=== PATIENT | male | born 1955 | race Caucasian/White ===

== ENCOUNTER 2019-12-17 15:32 | Outpatient (REF) | payer MEDICARE, MEDICAID, SELFPAY | END 2019-12-17 15:33 | disposition home or self-care (01) | LOC: HO.HAP 15:32 | PROVIDERS: PCP Internal Medicine; Visit Provider Internal Medicine | DX: Z46.1 Encounter for fitting and adjustment of hearing aid (principal) | CPT/HCPCS: V5266 ==

== ENCOUNTER 2020-02-20 12:27 | Inpatient (IN) | payer MEDICARE, MEDICAID, SELFPAY ==
[2020-02-20] VITALS (9 sets, daily range): BP systolic 111–144; BP diastolic 49–72; PULSE 82–93; RESP 16–24; TEMP 36.8–37.7; O2SAT 95–98; BMI 33.6
--- NOTE | 2020-02-20 13:16 | XR_ITS ---
EXAMINATION: XR KNEE, LEFT CLINICAL INFORMATION: Posterior left knee pain following a fall. COMPARISON: None TECHNIQUE: Four views of the left knee. FINDINGS: No acute fracture or dislocation. Severe tricompartmental joint space narrowing with marginal osteophytes. No significant joint effusion. Prominent atherosclerotic calcifications. XR/XR knee LT 4V IMPRESSION: Severe tricompartmental osteoarthritis. No displaced fracture.
--- NOTE | 2020-02-20 13:16 | ECG_ITS ---
Test Reason : WEAKNESS Blood Pressure : / mmHG Vent. Rate : 087 BPM Atrial Rate : 087 BPM P-R Int : 196 ms QRS Dur : 102 ms QT Int : 400 ms P-R-T Axes : 021 046 053 degrees QTc Int : 481 ms Normal sinus rhythm Nonspecific ST abnormality Abnormal ECG When compared with ECG of 24-FEB-2018 03:20, No significant changes seen Referred By: Sagrario Pratt Electronically Signed By:BANG CA
--- NOTE | 2020-02-20 13:16 | XR_ITS ---
EXAMINATION: XR CHEST CLINICAL INFORMATION: Fall. COMPARISON: Chest radiograph dated 02/24/2018. TECHNIQUE: 2 views of the chest were obtained. FINDINGS: Patchy right-sided airspace opacities, slightly more prominent when compared to the prior examination. No pleural effusion or pneumothorax. Stable cardiomediastinal silhouette. No acute osseous abnormality. XR/XR chest 2V IMPRESSION: Patchy right middle lobe airspace opacities, slightly more prominent when compared to the prior examination. Findings could represent an infectious or inflammatory process.
[2020-02-20 13:58] LABS: Basophils Absolute Auto 0.1 X10*3/uL (0.0-0.2); Basophils Percent Auto 0.7 % (0-2); Eosinophils Absolute Auto 0.5 X10*3/uL (0.0-0.4); Eosinophils Percent Auto 7.3 % (0-4); Hematocrit 23.4 % (42-52); Imm Gran Abs Auto 0.06 X10*3/uL (0.00-0.03); Imm Gran Pct Auto 0.9 % (0.0-0.4); Lymphocytes Absolute Auto 0.8 X10*3/uL (1.2-4.9); Lymphocytes Percent Auto 12.3 % (20-40); MANUAL DIFF FLAG NO; Mean Corpuscular HGB Conc 29.9 g/dl (31.0-36.0); Mean Corpuscular Hemoglobin 27.1 pg (27.0-33.0); Mean Corpuscular Volume 90.7 fL (80-98); Monocytes Absolute Auto 0.8 X10*3/uL (0.1-1.2); Neutrophils Absolute Auto 4.6 X10*3/uL (2.0-8.3); Neutrophils Percent Auto 67.8 % (45-73); Red Blood Count 2.58 X10*6/uL (4.60-5.80); Red Cell Distribution Width 17.4 % (11.0-16.0); White Blood Count 6.8 X10*3/uL (4.8-10.8)
[2020-02-20 14:00] LABS: Platelet Count 82 X10*3/uL (160-400)
[2020-02-20 14:03] LABS: INTERNATIONAL NORM RATIO 1.2 (0.9-1.1); Prothrombin Time 14.6 SEC (10.8-13.0)
--- NOTE | 2020-02-20 14:17 | ED.LOWEXIN ---
HPI - Extremity Injury (Lower) General Chief Complaint: Extremity Injury, Lower Stated Complaint: LEG WEAKNESS [id number],FALL LAST NIGHT Time Seen by Provider: 02/20/20 12:57 Source: patient and EMS Mode of arrival: EMS Limitations: no limitations History of Present Illness HPI Narrative: 64yoM c PMHx of atrial fibrillation only on aspirin, CHF, cardiomyopathy, DM, CKD stage III, blindness of left eye, GERD, abdominal hernia, hypothyroidism, BPH, osteoarthritis and major depression presenting to the ED via EMS currently residing at [facility] in [place] after he was in the shower with 1 of the SANIPRACTIC PHYSICIAN's when he reported to the SANIPRACTIC PHYSICIAN that he could not stand up any longer and his legs gave out and she was able to help lower him down to the ground. He reports he did not hit his head or lose consciousness. He reports he did have a fall approximately 1-2 weeks ago with a head injury but did not lose consciousness. He is concerned of increasing leg weakness and he is concerned about not being able to stand and walk like he used to. Complaining of left knee pain and buttocks pain. Denies any other injuries complaints or concerns at this time. Denies any fevers, chills, headaches, dizziness, changes in vision, jaw pains, paresthesias, chest pain, SOB, abdominal pain, back pain, hip pain, dysuria, diarrhea, constipation or any other symptoms. Related Data Allergies Allergy/AdvReac Type Severity Reaction Status Date / Time colchicine Allergy Unknown diarrhea Verified 02/20/20 12:43 Review of Systems Review of Systems: Constitutional : No Weight loss, No Fever, No Chills, No Night Sweats, + Fatigue, No Malaise ENT/Mouth : No Hearing loss, No Ear Pain, No Nasal Congestion, No Sinus Pain, No Hoarseness, No sore throat, No Rhinorrhea, No Swallowing Difficulty Eyes: No Eye Pain, No Swelling, No Redness, No Foreign Body, No Discharge, No Vision Changes Cardiovascular : No Chest Pain, No SOB, No Dyspnea on Exertion, No Orthopnea, No Edema, No Palpitations Respiratory : No Cough, No Sputum, No Wheezing, No Smoke Exposure, No Dyspnea Gastrointestinal : No Nausea, No Vomiting, No Diarrhea, No Constipation, No abdominal Pain, No Hematochezia, No Melena Genitourinary : no irregular bleeding, No Dysuria, No Urinary Frequency, No Hematuria, No Urinary Incontinence, No Urgency, No Flank Pain, No Urinary Flow Changes, No Hesitancy Musculoskeletal : + joint pain, No Myalgias, No Joint Swelling Skin : No Skin Lesions, No rash Neuro : + Weakness, No Numbness, No Paresthesias, No Loss of Consciousness, No Dizziness, No Headache Psych : No Anxiety/Panic, No Depression, No SI/HI/AH/VH, No Social Issues, Heme/Lymph: No Bruising, No Bleeding,No Lymphadenopathy Endocrine : No Polyuria, No Polydipsia, No Temperature Intolerance Yes all other systems are reviewed and are negative [facility]LY [facility] Past Medical History Attestation statement: The following information was validated with the patient. Medical History Atrial fibrillation Blindness of left eye BPH (benign prostatic hyperplasia) CHF (congestive heart failure) COPD (chronic obstructive pulmonary disease) Diabetes GERD (gastroesophageal reflux disease) Hypothyroid Major depression Osteoarthritis Social History Social History Alcohol intake: never Smoking Status: Former smoker Smoked in Last 30 Days: No Use of substances other than those prescribed or required for medical reasons: No Advance Directives: Yes Advance Directives Information Provided: Yes Advance Directives on File: Yes Advance Directives Date on File: 02/20/20 Physical Exam Vital Signs: Vital Signs: Last Vital Signs Temp 98.7 F 02/20/20 17:01 Pulse 82 02/20/20 17:01 Resp 18 02/20/20 17:01 BP 135/64 02/20/20 17:01 Pulse Ox 96 02/20/20 15:09 Body Mass Index 33.6 vital signs have been reviewed as normal and appeared to be correct. Blood pressure normal. Heart rate normal. Respiration rate normal. Temperature normal. Oxygen saturation normal. Appearance: Alert. Oriented X3. No acute distress. Head: Normal external exam. Normocephalic. Atraumatic. No Mcnally signs noted. No raccoon eyes noted Eyes: Left eye blindness chronic. Right eye c PERRLA and EOMI. Conjunctiva and sclera normal. Eyelids normal. ENT: EAC normal. TM's Normal. Pharynx normal. Uvula midline. Moist mucous membranes. No trismus noted. No drooling noted. No muffled voice noted. Neck: Normal inspection. Neck supple. FROM. No adenopathy. Thyroid Normal. No meningeal signs. No neck mass noted. CVS: Normal heart rate and rhythm. Heart sound normal. No murmurs noted. Pulses normal throughout. Respiratory: No respiratory distress. Painless inspiration. Breath sounds normal. No wheezes/rales/rhonchi noted. Chest nontender. No accessory muscle usage noted or decreased air movement noted. Abdomen: Soft and nontender. Bowel sounds normal in all 4 quadrants. Patient has a huge abdominal hernia. Not incarcerated. No organomegaly noted. No visible injury noted. Back: No CVA tenderness. Full range of motion noted. Skin: Skin warm and dry. Normal skin color. Normal skin turgor. No rashes/lesions/lacerations noted. Extremities: Tender to palpation of left knee. Full range of motion. No laxity noted. No ecchymosis/abrasion/lacerations or obvious deformities noted. No lower extremity edema. No calf tenderness noted. Extremities exhibit normal range of motion. Extremities nontender. Neuro: Oriented X 3. No motor deficit. No sensory deficit. Reflexes normal. Course Course Course Narrative: 13:16pm - 64yoM c PMHx of atrial fibrillation only on aspirin, CHF, cardiomyopathy, DM, CKD stage III, blindness of left eye, GERD, abdominal hernia, hypothyroidism, BPH, osteoarthritis and major depression presenting to the ED via EMS currently residing at [facility] in [place] after he was in the shower c a fall and weakness. Had a prior fall 1 week ago with head injury. Did not have head injury this time. No loss of consciousness. Complaining of left knee pain and buttocks pain. - on exam patient is alert and oriented x3 not in any acute distress. Vital signs are stable and within normal limits. Patient does not have any obvious deformities or injuries. - Concern for electrolyte abnormality - Plan: Labs, CT scan of brain, chest x-ray, imaging of bilateral hips and pelvis, imaging of lumbar spine and left knee, SARs/RSV/flu swab then re-evaluate. Reevaluation(s) Reevaluation #1: - H/H 7.0/23.4 - BUN 19 - glucose 130 - calcium 5.7 - BUN 111 - Total protein 6.4 - albumin 3.3 - All other labs WNL. UA WNL. - therefore at this time I asked the patient and he if he was having any bleeding including dark or tarry stools or bright red blood from the stools and he denied this therefore a stool occult will be performed. Patient is accepting consent for transfusion of blood or blood components he signed the form at this time. Will order 2 packs of red blood cells for blood transfusion. Will also order a L of fluids along with a CT scan of abdomen and pelvis to evaluate for any acute processes, will not be imaging the hips and pelvis or the lumbar spine as this will be included in the CT scan of abdomen pelvis. Will re-evaluate. Plan will be to admit for anemia and generalized weakness. Time: 14:18 Reevaluation #2: - patient positive for stool occult although CT scan of abdomen and pelvis revealed chronic changes no acute processes noted. I spoke to the hospitalist about admitting the patient and Shyann Pal will admit the patient although she ordered me to order only 1 pack of red blood cells due to the patient's history of CHF therefore this was ordered at this time and patient will receive only 1 pack of red blood cells. Patient will be admitted. Patient is negative for RSV/flu/COVID. Time: 17:11 MDM - Extremity Injury (Lower) Medical Records Attestation: I reviewed the patient's medical records. Lab Data Attestation: I reviewed the patient's lab results. Result diagrams: 02/20/20 13:50 02/20/20 13:50 Labs: Lab Results 02/20/20 02/20/20 02/20/20 Range/Units 13:50 13:50 13:50 WBC 6.8 (4.8-10.8) X10*3/uL RBC 2.58 L (4.60-5.80) X10*6/uL Hgb 7.0 L* (14.0-18.0) g/dl Hct 23.4 L (42-52) % MCV 90.7 (80-98) fL MCH 27.1 (27.0-33.0) pg MCHC 29.9 L (31.0-36.0) g/dl RDW 17.4 H (11.0-16.0) % Plt Count 82 L (160-400) X10*3/uL MPV 13.0 H (9.4-12.4) fL Immature Gran % (Auto) 0.9 H (0.0-0.4) % Neut % (Auto) 67.8 (45-73) % Lymph % (Auto) 12.3 L (20-40) % [place] % (Auto) 11.0 (2-11) % Eos % (Auto) 7.3 H (0-4) % Baso % (Auto) 0.7 (0-2) % Lymph # (Auto) 0.8 L (1.2-4.9) X10*3/uL [place] # (Auto) 0.8 (0.1-1.2) X10*3/uL Eos # (Auto) 0.5 H (0.0-0.4) X10*3/uL Baso # (Auto) 0.1 (0.0-0.2) X10*3/uL Abs Immat Gran (auto) 0.06 H (0.00-0.03) X10*3/uL Absolute Neuts (auto) 4.6 (2.0-8.3) X10*3/uL Absolute Nucleated RBC 0.000 (0.0-0.012) X10*3/uL Nucleated RBC % (auto) 0.0 (0.0-0.2) /100WBC Hold Purple Top SEE NOTE PT 14.6 H (10.8-13.0) SEC INR 1.2 H (0.9-1.1) Sodium (135-145) mmol/L Potassium (3.3-5.1) mmol/l Chloride (96-108) mmol/L Carbon Dioxide (22-29) mmol/L Anion Gap (12-20) BUN (9-16) mg/dL Creatinine (0.5-1.4) mg/dL Estim Creat Clear Calc Estimated GFR Random Glucose (60-115) mg/dL Calcium (8.4-10.2) mg/dL Magnesium (1.6-2.6) mg/dL Iron (45-160) mcg/dL TIBC (228-428) mcg/dL % Saturation (15-50) % Unsat Iron Binding ug/dL Ferritin (20-250) ng/mL Total Bilirubin (0.0-1.0) mg/dL Direct Bilirubin (0.0-0.5) mg/dL AST (5-37) U/L ALT (0-40) U/L Alkaline Phosphatase (39-117) U/L Troponin I High Sens (<3.5-35.0) ng/L B-Natriuretic Peptide (<100) pg/mL Total Protein (6.5-8.0) g/dL Albumin (3.5-5.0) g/dL Urine Color Urine Appearance Urine pH (5.0-8.0) Ur Specific [place] (1.005-1.025) Urine Protein (NEG-TRACE) MG/DL Urine Glucose (UA) (NEG) MG/DL Urine Ketones (NEG) MG/DL Urine Blood (NEG) Urine Nitrite (NEG) Ur Leukocyte Esterase (NEG) Stool Occult Blood (NEG) Coronavirus (PCR) (Negative) Influenza Type A (PCR) (Negative) Influenza Type B (PCR) (Negative) RSV RNA Qual (PCR) (Negative) Blood Type Antibody Screen Crossmatch 02/20/20 02/20/20 02/20/20 Range/Units 13:50 13:50 15:31 WBC (4.8-10.8) X10*3/uL RBC (4.60-5.80) X10*6/uL Hgb (14.0-18.0) g/dl Hct (42-52) % MCV (80-98) fL MCH (27.0-33.0) pg MCHC (31.0-36.0) g/dl RDW (11.0-16.0) % Plt Count (160-400) X10*3/uL MPV (9.4-12.4) fL Immature Gran % (Auto) (0.0-0.4) % Neut % (Auto) (45-73) % Lymph % (Auto) (20-40) % [place] % (Auto) (2-11) % Eos % (Auto) (0-4) % Baso % (Auto) (0-2) % Lymph # (Auto) (1.2-4.9) X10*3/uL [place] # (Auto) (0.1-1.2) X10*3/uL Eos # (Auto) (0.0-0.4) X10*3/uL Baso # (Auto) (0.0-0.2) X10*3/uL Abs Immat Gran (auto) (0.00-0.03) X10*3/uL Absolute Neuts (auto) (2.0-8.3) X10*3/uL Absolute Nucleated RBC (0.0-0.012) X10*3/uL Nucleated RBC % (auto) (0.0-0.2) /100WBC Hold Purple Top PT (10.8-13.0) SEC INR (0.9-1.1) Sodium 142 (135-145) mmol/L Potassium 4.0 (3.3-5.1) mmol/l Chloride 105 (96-108) mmol/L Carbon Dioxide 25 (22-29) mmol/L Anion Gap 16 (12-20) BUN 19 H (9-16) mg/dL Creatinine 1.07 (0.5-1.4) mg/dL Estim Creat Clear Calc 87.9 Estimated GFR > 60 Random Glucose 130 H (60-115) mg/dL Calcium 5.7 L* (8.4-10.2) mg/dL Magnesium 1.7 (1.6-2.6) mg/dL Iron 40 L (45-160) mcg/dL TIBC 365 (228-428) mcg/dL % Saturation 11 L (15-50) % Unsat Iron Binding 325 ug/dL Ferritin 23 (20-250) ng/mL Total Bilirubin 0.6 (0.0-1.0) mg/dL Direct Bilirubin 0.3 (0.0-0.5) mg/dL AST 33 (5-37) U/L ALT 17 (0-40) U/L Alkaline Phosphatase 95 (39-117) U/L Troponin I High Sens 4.3 (<3.5-35.0) ng/L B-Natriuretic Peptide 111 H (<100) pg/mL Total Protein 6.4 L (6.5-8.0) g/dL Albumin 3.3 L (3.5-5.0) g/dL Urine Color Urine Appearance Urine pH (5.0-8.0) Ur Specific [place] (1.005-1.025) Urine Protein (NEG-TRACE) MG/DL Urine Glucose (UA) (NEG) MG/DL Urine Ketones (NEG) MG/DL Urine Blood (NEG) Urine Nitrite (NEG) Ur Leukocyte Esterase (NEG) Stool Occult Blood (NEG) Coronavirus (PCR) (Negative) Influenza Type A (PCR) (Negative) Influenza Type B (PCR) (Negative) RSV RNA Qual (PCR) (Negative) Blood Type O Positive Antibody Screen NEGATIVE Crossmatch See Detail 02/20/20 02/20/20 02/20/20 Range/Units 15:32 15:47 15:47 WBC (4.8-10.8) X10*3/uL RBC (4.60-5.80) X10*6/uL Hgb (14.0-18.0) g/dl Hct (42-52) % MCV (80-98) fL MCH (27.0-33.0) pg MCHC (31.0-36.0) g/dl RDW (11.0-16.0) % Plt Count (160-400) X10*3/uL MPV (9.4-12.4) fL Immature Gran % (Auto) (0.0-0.4) % Neut % (Auto) (45-73) % Lymph % (Auto) (20-40) % [place] % (Auto) (2-11) % Eos % (Auto) (0-4) % Baso % (Auto) (0-2) % Lymph # (Auto) (1.2-4.9) X10*3/uL [place] # (Auto) (0.1-1.2) X10*3/uL Eos # (Auto) (0.0-0.4) X10*3/uL Baso # (Auto) (0.0-0.2) X10*3/uL Abs Immat Gran (auto) (0.00-0.03) X10*3/uL Absolute Neuts (auto) (2.0-8.3) X10*3/uL Absolute Nucleated RBC (0.0-0.012) X10*3/uL Nucleated RBC % (auto) (0.0-0.2) /100WBC Hold Purple Top PT (10.8-13.0) SEC INR (0.9-1.1) Sodium (135-145) mmol/L Potassium (3.3-5.1) mmol/l Chloride (96-108) mmol/L Carbon Dioxide (22-29) mmol/L Anion Gap (12-20) BUN (9-16) mg/dL Creatinine (0.5-1.4) mg/dL Estim Creat Clear Calc Estimated GFR Random Glucose (60-115) mg/dL Calcium (8.4-10.2) mg/dL Magnesium (1.6-2.6) mg/dL Iron (45-160) mcg/dL TIBC (228-428) mcg/dL % Saturation (15-50) % Unsat Iron Binding ug/dL Ferritin (20-250) ng/mL Total Bilirubin (0.0-1.0) mg/dL Direct Bilirubin (0.0-0.5) mg/dL AST (5-37) U/L ALT (0-40) U/L Alkaline Phosphatase (39-117) U/L Troponin I High Sens (<3.5-35.0) ng/L B-Natriuretic Peptide (<100) pg/mL Total Protein (6.5-8.0) g/dL Albumin (3.5-5.0) g/dL Urine Color STRAW Urine Appearance CLEAR Urine pH 5.5 (5.0-8.0) Ur Specific [place] 1.020 (1.005-1.025) Urine Protein NEG (NEG-TRACE) MG/DL Urine Glucose (UA) NEG (NEG) MG/DL Urine Ketones NEG (NEG) MG/DL Urine Blood NEG (NEG) Urine Nitrite NEG (NEG) Ur Leukocyte Esterase NEG (NEG) Stool Occult Blood POS (NEG) Coronavirus (PCR) NEGATIVE (Negative) Influenza Type A (PCR) NEGATIVE (Negative) Influenza Type B (PCR) NEGATIVE (Negative) RSV RNA Qual (PCR) NEGATIVE (Negative) Blood Type Antibody Screen Crossmatch Imaging Data Chest x-ray: Attestation: I personally reviewed and interpreted this imaging study as follows: Radiologist's impression: IMPRESSION: Patchy right middle lobe airspace opacities, slightly more prominent when compared to the prior examination. Findings could represent an infectious or inflammatory process. CT scan - head: Attestation: I personally reviewed and interpreted this imaging study as follows: Radiologist's impression: IMPRESSION: No acute intracranial process seen. Age-related cerebral volume loss and chronic small vessel ischemic changes in both cerebral hemispheres Left knee x-ray: Attestation: I personally reviewed and interpreted this imaging study as follows: Radiologist's impression: IMPRESSION: Severe tricompartmental osteoarthritis. No displaced fracture. ECG Data Attestation: I personally reviewed and interpreted this ECG as follows: ECG interpretation date: 02/20/20 ECG interpretation time: 13:29 Interpretation: Normal sinus rhythm and nonspecific ST abnormality normal QRS duration normal QT/QTC interval no acute ischemic changes noted. EKG on 02/24/2019 Critical Care Time Critical Care Time Critical Care Time: Yes Total Critical Care Time: 90 Attestation: I personally attest to this time spent taking care of the patient Discharge Plan Discharge Clinical Impression: Anemia, Fecal occult blood test positive, Generalized weakness, Strain of left knee, Diverticulosis Patient Disposition: Admitted As Inpatient
[2020-02-20 14:26] LABS: B Type Natriuretic Peptide 111 pg/mL (<100)
--- NOTE | 2020-02-20 14:26 | CT_ITS ---
EXAMINATION: CT HEAD WITHOUT CONTRAST CLINICAL INFORMATION: Status post fall x1 week ago. Head injury. COMPARISON: None TECHNIQUE: Contiguous axial imaging was performed from the skull base to vertex without intravenous administration of contrast. This CT examination was performed using dose optimization techniques as appropriate, variously including the following: *Automated exposure control *Adjustment of mA and/or kV according to patient size (this includes techniques or standardized protocols for targeted exams where dose is matched to indication/reason for exam; i.e. extremities or head) *Use of iterative reconstruction technique DLP: 2016 mGy-cm FINDINGS: There is no evidence of acute intracranial hemorrhage or territorial infarction. No abnormal mass effect or midline shift is seen. Flowers to white matter differentiation is well preserved. No extra-axial fluid collections are identified. The lateral ventricles are enlarged with symmetrical. Mild periarticular hypodensity seen in both cerebral hemispheres without mass effect. The osseous structures and soft tissues are normal. The mastoid air cells and visualized portions of the paranasal sinuses are well aerated. 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 Otherwise the bony orbits are unremarkable. CT/CT head/brain wo con IMPRESSION: No acute intracranial process seen. Age-related cerebral volume loss and chronic small vessel ischemic changes in both cerebral hemispheres
--- NOTE | 2020-02-20 14:26 | CT_ITS ---
EXAMINATION: CT ABDOMEN AND PELVIS WITH CONTRAST CLINICAL INFORMATION: Patient with low hemoglobin/hematocrit question GI bleed. COMPARISON: CT of the abdomen and pelvis with contrast dated 07/09/2009. TECHNIQUE: Multidetector volumetric images were obtained from the superior aspect of the liver through the pubic symphysis following administration 85 mL of Omnipaque 350 intravenous contrast. Sagittal and coronal reformatted images were obtained on the technologist's workstation. Oral contrast: No This CT examination was performed using dose optimization techniques as appropriate, variously including the following: *Automated exposure control *Adjustment of mA and/or kV according to patient size (this includes techniques or standardized protocols for targeted exams where dose is matched to indication/reason for exam; i.e. extremities or head) *Use of iterative reconstruction technique DLP: 2016 mGy-cm FINDINGS: LOWER THORAX: Lung bases are clear. Heart is normal in size. No pericardial effusion or thickening. Coronary vascular calcifications. HEPATOBILIARY: Liver is normal in size and attenuation. There is mild nodularity of the hepatic contour suggesting chronic liver disease. No focal hepatic lesions. The gallbladder is present and otherwise unremarkable. No biliary dilatation. SPLEEN: Normal. PANCREAS: Normal. ADRENALS: Normal. KIDNEYS/URETERS: Symmetric nephrograms. Nonobstructive 0.7 cm calculus in the lower pole of the right kidney. Left renal cysts noted. Cyst in the upper pole of the left kidney demonstrates a small thin septation. No solid enhancing lesions. No hydronephrosis bilaterally. BLADDER: Partially decompressed by Palacios catheter. PELVIC ORGANS: Prostate is mildly enlarged. Central prostatic calcifications. Seminal vesicles are normal in caliber. GI TRACT: No dilated or thick walled loops of bowel. The appendix is unremarkable (15:56/106). Sigmoid diverticulosis. No contrast blush is appreciated in the small or large bowel to definitively suggest source of gastrointestinal bleeding. PERITONEUM/RETROPERITONEUM AND MESENTERY: No intraperitoneal free air or fluid. LYMPH NODES: No pathologically enlarged lymph nodes. VESSELS: Moderate aortoiliac atherosclerotic calcifications. BONES AND SOFT TISSUES: No aggressive lytic or blastic osseous lesions. Small fat-containing bilateral inguinal hernias. CT/CT abdomen pelvis w con IMPRESSION: Nonobstructing right nephrolithiasis. Diverticulosis. Mild nodularity of the hepatic contour suggesting chronic liver disease. Normal caliber small and large bowel. No acute bowel pathology appreciated.
[2020-02-20 14:39] LABS: Alanine Aminotransferase 17 U/L (0-40); Albumin Level 3.3 g/dL (3.5-5.0); Alkaline Phosphatase 95 U/L (39-117); Anion Gap 16 (12-20); Aspartate Amino Transferase 33 U/L (5-37); Bilirubin Direct 0.3 mg/dL (0.0-0.5); Bilirubin Total 0.6 mg/dL (0.0-1.0); Blood Urea Nitrogen 19 mg/dL (9-16); Carbon Dioxide 25 mmol/L (22-29); Chloride 105 mmol/L (96-108); Creatinine Clr Calc Pharmacy 87.9; Estimated Glomerular Filt Rate > 60; Glucose Random 130 mg/dL (60-115); Magnesium 1.7 mg/dL (1.6-2.6); Sodium 142 mmol/L (135-145); Total Protein 6.4 g/dL (6.5-8.0)
[2020-02-20 14:52] LABS: Calcium 5.7 mg/dL (8.4-10.2)
--- NOTE | 2020-02-20 15:06 | PC.NURSE ---
pt incontinent of urine, brief removed, cleaned and linens changed. significant masceration to doreen area, dried and sykes cath placed per provider d/t skin integrity issues. provider at bedside for rectal exam as well as consent for blood products. plan for inpt admission.
[2020-02-20] MEDS: iohexoL 350 MG/ML 100 ML INFUS..BTL IV (15:23)
[2020-02-20] MEDS: 0.9 % Sodium Chloride 1,000 ML 999 ML IVCONT (15:44)
[2020-02-20 15:54] LABS: OBS Int Ctl Valid YES; OBS1 POS (NEG)
[2020-02-20 15:55] LABS: Appearance Urine CLEAR; Color Urine STRAW; Glucose Urine UA NEG (NEG); Leukocyte Esterase Urine NEG (NEG); Nitrite Urine NEG (NEG); PH 5.5 (5.0-8.0); Urine Blood NEG (NEG); Urine Ketones NEG (NEG); Urine Protein NEG (NEG-TRACE)
[2020-02-20 16:41] LABS: Troponin-I High Sensitivity 4.3 ng/L (<3.5-35.0)
[2020-02-20 16:49] LABS: Iron 40 mcg/dL (45-160); Percent Iron Saturation 11 % (15-50); Total Iron Binding Capacity 365 mcg/dL (228-428); Unsaturated Iron Binding 325 ug/dL
[2020-02-20 16:54] LABS: Influenza A PCR NEGATIVE (Negative); Influenza B PCR NEGATIVE (Negative); Resp Syncy Virus RNA Qual PCR NEGATIVE (Negative); SARS COV2 PCR INHOUSE NEGATIVE (Negative)
--- NOTE | 2020-02-20 17:05 | P.EN_ITS ---
Event Note Date of Service: 02/20/20 Event Note: Patient seen and examined. Case discussed with ROLANDO Alcaraz. Agree with her history and physical + plan as documented Below. In brief, 64-year-old male from group home facility who presented to the hospital after a mechanical fall. Lab work in the emergency room was significant for normocytic anemia and thrombocytopenia which is chronic. No mee bleeding, however occult blood was positive. Will be admitted for blood transfusion as well as further workup for his profound anemia. Will start empiric IV PPI and consult Gastroenterology as well. Allow him clear liquids this evening, NPO after midnight. Remainder per H&P
--- NOTE | 2020-02-20 17:05 | PC.NURSE ---
Addendum entered by Buster Parekh 02/20/20 17:08: pt seen by hospitalist, pending admission. Original Note: blood products started, no evidence of allergic or adverse reaction, vss. rbcs infusing.
[2020-02-20 17:09] LABS: Ferritin 23 ng/mL (20-250)
--- NOTE | 2020-02-20 17:12 | P.HPHOSP_ITS ---
History of Present Illness Date of Service: 02/20/20 <ROLANDO Hernandez - Last Filed: 02/20/20 17:21> Chief Complaint: Fall <ROLANDO Hernandez - Last Filed: 02/20/20 17:21> This is a 64-year-old male who was brought from [facility] due to a fall. Patient reports having mechanical fall. He denies any loss of consciousness, he denies hitting his head. Brain CT was negative. Lab work do ne which revealed anemia which was new compared to his baseline. H/H was 7/23.4 and he was also noted to have heme-positive stools. He denies any mee bleeding. He reports using ibuprofen daily due to gout. He also reportedly takes aspirin daily. He denies previous history of GI bleeding. He underwent a CT scan of the abdomen showed with no other acute bowel pathology. <ROLANDO Hernandez - Last Filed: 02/20/20 17:21> Review of Systems Review of Systems: Yes all other systems are reviewed and are negative <ROLANDO Hernandez - Last Filed: 02/20/20 17:21> Constitutional: Constitutional: Denies chills and Denies fever(s) <ROLANDO Hernandez - Last Filed: 02/20/20 17:21> Cardiovascular: Cardiovascular: Denies chest pain <ROLANDO Hernandez - Last Filed: 02/20/20 17:21> Respiratory: Respiratory: Denies cough <ROLANDO Hernandez - Last Filed: 02/20/20 17:21> Gastrointestinal: Gastrointestinal: Denies abdominal pain <ROLANDO Hernandez - Last Filed: 02/20/20 17:21> [facility] Medical History: Medical History Atrial fibrillation Blindness of left eye BPH (benign prostatic hyperplasia) CHF (congestive heart failure) COPD (chronic obstructive pulmonary disease) Diabetes GERD (gastroesophageal reflux disease) Hypothyroid Major depression Osteoarthritis 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 <ROLANDO Hernandez - Last Filed: 02/20/20 17:21> Family History: Family History Maternal Grandmother Diabetes Mother Diabetes <ROLANDO Hernandez - Last Filed: 02/20/20 17:21> Family history: reviewed and not pertinent <ROLANDO Hernandez - Last Filed: 02/20/20 17:21> Social History: Social History Household Members: Other Housing: [facility] Alcohol intake: former Smoking Status: Former smoker Advance Directives Date on File: 02/20/20 service: No Current occupational status: retired <ROLANDO Hernandez - Last Filed: 02/20/20 17:21> Meds Allergies/Adverse reactions: Allergies Allergy/AdvReac Type Severity Reaction Status Date / Time colchicine Allergy Unknown diarrhea Verified 02/20/20 12:43 <ROLANDO Hernandez - Last Filed: 02/20/20 17:21> Home medications: Home Medications Medication Instructions Recorded Confirmed Type atorvastatin 1 tab PO DAILY 02/21/20 02/21/20 History carvedilol 1 tab PO BID 02/21/20 02/21/20 History citalopram 1 tab PO DAILY 02/21/20 02/21/20 History citalopram 1 tab PO DAILY 02/21/20 02/21/20 History furosemide 1 tab PO DAILY 02/21/20 02/21/20 History hydroxyzine HCl 25 mg PO DAILY 02/21/20 02/21/20 History latanoprost 1 drp OPHTHALMIC (EYE) BEDTIME 02/21/20 02/21/20 History magnesium oxide 400 mg PO BID 02/21/20 02/21/20 History metformin 1 tab PO BID 02/21/20 02/21/20 History pentoxifylline 1 tab PO BID 02/21/20 02/21/20 History <ROLANDO Hernandez - Last Filed: 02/20/20 17:21> Physical Exam Vital Signs and Narrative: Vital Signs: Last Vital Signs Temp 98.7 F 02/20/20 17:01 Pulse 82 02/20/20 17:01 Resp 18 02/20/20 17:01 BP 135/64 02/20/20 17:01 Pulse Ox 96 02/20/20 15:09 Body Mass Index 33.6 <ROLANDO Hernandez Last Filed: 02/20/20 17:21> Const: General: no acute distress, alert and awake <ROLANDO Hernandez - Last Filed: 02/20/20 17:21> Nutritional Appearance: well nourished <ROLANDO Hernandez - Last Filed: 02/20/20 17:21> HENMT: Head: Yes normocephalic and Yes atraumatic <ROLANDO Hernandez - Last Filed: 02/20/20 17:21> Eyes: Sclerae: sclerae normal <ROLANDO Hernandez - Last Filed: 02/20/20 17:21> Chest: Chest palpation & inspection: normal inspection of the chest <ROLANDO Hernandez - Last Filed: 02/20/20 17:21> Resp: Effort & Inspection: normal respiratory effort and no respiratory distress <ROLANDO Hernandez - Last Filed: 02/20/20 17:21> GI: Other: ventral hernia <ROLANDO Hernandez - Last Filed: 02/20/20 17:21> Palpation (GI): Soft to palpation and nontender <ROLANDO Hernandez - Last Filed: 02/20/20 17:21> Skin: General skin exam: no rashes or lesions noted <ROLANDO Hernandez - Last Filed: 02/20/20 17:21> Neuro: Cranial nerves: Yes CN's II-XII intact bilaterally and Yes Bilaterally intact EOM present <ROLANDO Hernandez - Last Filed: 02/20/20 17:21> Extrem: General: Yes normal to inspection <ROLANDO Hernandez - Last Filed: 02/20/20 17:21> Results Labs CBC and Chem 7: : 02/25/20 05:45 02/23/20 05:46 <ROLANDO Hernandez - Last Filed: 02/20/20 17:21> Labs: Laboratory Results - last 24 hr 02/20/20 02/20/20 02/20/20 13:50 13:50 13:50 MCV 90.7 MCH 27.1 MCHC 29.9 L RDW 17.4 H Plt Count 82 L MPV 13.0 H Immature Gran % (Auto) 0.9 H Neut % (Auto) 67.8 Lymph % (Auto) 12.3 L Knott % (Auto) 11.0 Eos % (Auto) 7.3 H Baso % (Auto) 0.7 Lymph # (Auto) 0.8 L K[place] # (Auto) 0.8 Eos # (Auto) 0.5 H Baso # (Auto) 0.1 Abs Immat Gran (auto) 0.06 H Absolute Neuts (auto) 4.6 Absolute Nucleated RBC 0.000 Nucleated RBC % (auto) 0.0 Hold Purple Top SEE NOTE PT 14.6 H INR 1.2 H Anion Gap Estim Creat Clear Calc Estimated GFR Random Glucose Calcium Magnesium Iron TIBC % Saturation Unsat Iron Binding Ferritin Total Bilirubin Direct Bilirubin AST ALT Alkaline Phosphatase Troponin I High Sens B-Natriuretic Peptide Total Protein Albumin Urine Color Urine Appearance Urine pH Ur Specific [place] Urine Protein Urine Glucose (UA) Urine Ketones Urine Blood Urine Nitrite Ur Leukocyte Esterase Stool Occult Blood Coronavirus (PCR) Influenza Type A (PCR) Influenza Type B (PCR) RSV RNA Qual (PCR) Blood Type Antibody Screen Crossmatch 02/20/20 02/20/20 02/20/20 13:50 13:50 15:31 MCV MCH MCHC RDW Plt Count MPV Immature Gran % (Auto) Neut % (Auto) Lymph % (Auto) Knott % (Auto) Eos % (Auto) Baso % (Auto) Lymph # (Auto) Knott # (Auto) Eos # (Auto) Baso # (Auto) Abs Immat Gran (auto) Absolute Neuts (auto) Absolute Nucleated RBC Nucleated RBC % (auto) Hold Purple Top PT INR Anion Gap 16 Estim Creat Clear Calc 87.9 Estimated GFR > 60 Random Glucose 130 H Calcium 5.7 L* Magnesium 1.7 Iron 40 L TIBC 365 % Saturation 11 L Unsat Iron Binding 325 Ferritin 23 Total Bilirubin 0.6 Direct Bilirubin 0.3 AST 33 ALT 17 Alkaline Phosphatase 95 Troponin I High Sens 4.3 B-Natriuretic Peptide 111 H Total Protein 6.4 L Albumin 3.3 L Urine Color Urine Appearance Urine pH Ur Specific [place] Urine Protein Urine Glucose (UA) Urine Ketones Urine Blood Urine Nitrite Ur Leukocyte Esterase Stool Occult Blood Coronavirus (PCR) Influenza Type A (PCR) Influenza Type B (PCR) RSV RNA Qual (PCR) Blood Type O Positive Antibody Screen NEGATIVE Crossmatch See Detail 02/20/20 02/20/20 02/20/20 15:32 15:47 15:47 MCV MCH MCHC RDW Plt Count MPV Immature Gran % (Auto) Neut % (Auto) Lymph % (Auto) Knott % (Auto) Eos % (Auto) Baso % (Auto) Lymph # (Auto) Knott # (Auto) Eos # (Auto) Baso # (Auto) Abs Immat Gran (auto) Absolute Neuts (auto) Absolute Nucleated RBC Nucleated RBC % (auto) Hold Purple Top PT INR Anion Gap Estim Creat Clear Calc Estimated GFR Random Glucose Calcium Magnesium Iron TIBC % Saturation Unsat Iron Binding Ferritin Total Bilirubin Direct Bilirubin AST ALT Alkaline Phosphatase Troponin I High Sens B-Natriuretic Peptide Total Protein Albumin Urine Color STRAW Urine Appearance CLEAR Urine pH 5.5 Ur Specific [place] 1.020 Urine Protein NEG Urine Glucose (UA) NEG Urine Ketones NEG Urine Blood NEG Urine Nitrite NEG Ur Leukocyte Esterase NEG Stool Occult Blood POS Coronavirus (PCR) NEGATIVE Influenza Type A (PCR) NEGATIVE Influenza Type B (PCR) NEGATIVE RSV RNA Qual (PCR) NEGATIVE Blood Type Antibody Screen Crossmatch <ROLANDO Hernandez - Last Filed: 02/20/20 17:21> Imaging Radiologist's Impressions: Impressions Chest X-Ray 02/20/20 13:16 IMPRESSION: Patchy right middle lobe airspace opacities, slightly more prominent when compared to the prior examination. Findings could represent an infectious or inflammatory process. Knee X-Ray 02/20/20 13:16 IMPRESSION: Severe tricompartmental osteoarthritis. No displaced fracture. Abdomen/Pelvis CT 02/20/20 14:26 IMPRESSION: Nonobstructing right nephrolithiasis. Diverticulosis. Mild nodularity of the hepatic contour suggesting chronic liver disease. Normal caliber small and large bowel. No acute bowel pathology appreciated. Head CT 02/20/20 14:26 IMPRESSION: No acute intracranial process seen. Age-related cerebral volume loss and chronic small vessel ischemic changes in both cerebral hemispheres <ROLANDO Hernandez - Last Filed: 02/20/20 17:21> Assessment and Plan (1) Anemia: Status: Acute <ROLANDO Hernandez - Last Filed: 02/20/20 17:21> This is a 64-year-old male with history of her cardiomyopathy, CKD, diabetes, ITP who presents to the emergency department with fall found to have anemia Acute blood loss anemia/ GIB Start clear liquid diet. NPO at midnight IV PPI Follow CBC 1 unit of blood ordered in ED and transfusion initiated GI consult Hold anticoagulation, anti-platelet agents Thrombocytopenia secondary to ITP Chronic Follow cbc Diabetes Gout DVT prophylaxis-mechanical devices Code status-most form in chart indicates wishes to be DNR/DNI This case was discussed with Dr. Bucio <ROLANDO Hernandez - Last Filed: 02/20/20 17:21>
[2020-02-20] MEDS: Pantoprazole Sodium 40 MG/10 ML VIAL IVPUSH (17:44)
--- NOTE | 2020-02-20 19:11 | PC.NURSE ---
Pt report taken from suzanne saenz at this time. pt on equipment monitor phototypesetting nsr 84 bpm. pt vitals wnl. sykes in place and draining without issue. pt neuro intact, nad noted at this time. pending report to floor.
--- NOTE | 2020-02-20 20:16 | PC.NURSE ---
floor states room is not cleaned. pt given sandwich per request. no apparent distress noted
[2020-02-20 21:03] LABS: Glucose, Whole Blood 163 mg/dL (60-115)
--- NOTE | 2020-02-20 22:02 | PC.NURSE ---
report given at this time. pt can go upstairs at 10:22
[2020-02-21 01:11] LABS: Hemoglobin 7.9 g/dl (14.0-18.0); Mean Corpuscular HGB Conc 30.4 g/dl (31.0-36.0); Mean Corpuscular Hemoglobin 27.5 pg (27.0-33.0); Mean Corpuscular Volume 90.6 fL (80-98); Mean Platelet Volume 12.7 fL (9.4-12.4); Red Blood Count 2.87 X10*6/uL (4.60-5.80); Red Cell Distribution Width 17.1 % (11.0-16.0); White Blood Count 7.2 X10*3/uL (4.8-10.8)
[2020-02-21 01:17] LABS: Platelet Count 68 X10*3/uL (160-400)
[2020-02-21 01:42] LABS: Glucose, Whole Blood 165 mg/dL (60-115)
[2020-02-21] MEDS: 0.9 % Sodium Chloride Flush 3 ML SYRINGE IVFLUSH ×3 (01:54→15:17)
[2020-02-21 03:28] VITALS: BP 131/58; PULSE 93; RESP 16; TEMP 36.6; O2SAT 97
[2020-02-21] MEDS: Pantoprazole Sodium 40 MG/10 ML VIAL IVPUSH ×2 (05:22→18:05)
[2020-02-21 07:15] LABS: Basophils Percent Auto 0.3 % (0-2); Eosinophils Absolute Auto 0.3 X10*3/uL (0.0-0.4); Hemoglobin 8.3 g/dl (14.0-18.0); Lymphocytes Absolute Auto 0.8 X10*3/uL (1.2-4.9); MANUAL DIFF FLAG SCAN; SCAN SMEAR FLAG 1
[2020-02-21 07:16] LABS: Eosinophils Percent Auto 3.1 % (0-4); Hematocrit 27.4 % (42-52); Imm Gran Abs Auto 0.08 X10*3/uL (0.00-0.03); Lymphocytes Percent Auto 9.4 % (20-40); Mean Corpuscular HGB Conc 30.3 g/dl (31.0-36.0); Mean Corpuscular Hemoglobin 27.3 pg (27.0-33.0); Mean Corpuscular Volume 90.1 fL (80-98); Mean Platelet Volume 13.8 fL (9.4-12.4); Monocytes Absolute Auto 0.8 X10*3/uL (0.1-1.2); Monocytes Percent Auto 10.4 % (2-11); Neutrophils Absolute Auto 6.1 X10*3/uL (2.0-8.3); Neutrophils Percent Auto 75.8 % (45-73); Red Blood Count 3.04 X10*6/uL (4.60-5.80); Red Cell Distribution Width 17.5 % (11.0-16.0)
[2020-02-21 07:22] LABS: Glucose, Whole Blood 181 mg/dL (60-115)
[2020-02-21 07:35] LABS: Anion Gap 15 (12-20); Blood Urea Nitrogen 18 mg/dL (9-16); Carbon Dioxide 25 mmol/L (22-29); Chloride 105 mmol/L (96-108); Estimated Glomerular Filt Rate > 60; Glucose Random 186 mg/dL (60-115); Potassium 4.5 mmol/l (3.3-5.1); Sodium 140 mmol/L (135-145)
[2020-02-21 07:43] VITALS: BP 117/59; PULSE 82; RESP 18; TEMP 36.6; O2SAT 98
[2020-02-21 07:47] LABS: PLT ABN DIST 1; Platelet Count 72 X10*3/uL (160-400)
[2020-02-21 07:48] LABS: SLIDE REVIEW VERIFIED
[2020-02-21 07:58] LABS: Calcium 5.9 mg/dL (8.4-10.2)
[2020-02-21] MEDS: Insulin Lispro 100 UNIT/ML 3 ML VIAL SUBCUT ×4 (08:02→22:06)
--- NOTE | 2020-02-21 10:17 | HO.PM.IMPN ---
Subjective Subjective Date of Service: 02/21/20 Interval History: seen and examined this AM denies any bleeding denies pain would like solid food ROS General - no fevers or chills Cardiovascular - no chest pain Respiratory - no shortness of breath or cough Abdominal- no abdominal pain, nausea, vomiting, diarrhea Physical Exam Vital Signs: Vital Signs: Last Vital Signs Temp 97.8 F 02/21/20 07:43 Pulse 82 02/21/20 07:43 Resp 18 02/21/20 07:43 BP 117/59 L 02/21/20 07:43 Pulse Ox 98 02/21/20 07:43 Body Mass Index 33.6 Const: Other: General - no acute distress, appears comfortable Cardiovascular - regular rate and rhythm, S1-S2 Lungs - normal respiratory effort, clear to auscultation bilaterally, no wheezing Abdomen - soft, nontender, no rebound or guarding Extremities - no edema bilaterally Neuro - awake and alert, no focal deficits Objective Data Current Medications Generic Name Dose Route Start Last Admin Trade Name Freq PRN Reason Stop Dose Admin Acetaminophen 650 mg 02/20/20 18:36 Acetaminophen 325 Mg Tablet PO Q6H PRN Pain, Mild (Pain Scale 1-3) Atorvastatin Calcium 10 mg 02/22/20 09:00 Atorvastatin Calcium 10 Mg Tablet PO DAILY [facility] Calcium Carbonate 500 mg 02/21/20 15:00 Calcium Carbonate 500 Mg Tablet PO TID [facility] Docusate Sodium 100 mg 02/20/20 17:09 Docusate Sodium 100 Mg Capsule PO DAILY PRN Constipation Hydroxyzine HCl 25 mg 02/22/20 09:00 Hydroxyzine Hcl 25 Mg Tablet PO DAILY [facility] Calcium Gluconate 2 gm in 100 mls @ 50 mls/hr 02/21/20 10:14 Calcium Gluconate IV 02/21/20 12:13 ONCE ONE Insulin Human Lispro 0 unit 02/20/20 21:00 02/21/20 08:02 Insulin Lispro 100 Unit/Ml 3 Ml Vial SUBCUT 2 unit QIDACHS [facility] Administration Protocol Latanoprost 1 drop 02/21/20 21:00 Latanoprost 0.005 % Ophth Kathy 2.5 Ml Drops EYE-BOTH BEDTIME XI Ondansetron HCl 4 mg 02/20/20 17:09 Ondansetron Hcl 4 Mg/2 Ml Vial IVPUSH Q8H PRN Nausea and Vomiting Pantoprazole Sodium 40 mg 02/20/20 17:10 02/21/20 05:22 Pantoprazole Sodium 40 Mg/10 Ml Vial IVPUSH 40 mg BID@0630,4360 [facility] Administration Sodium Chloride 3 ml 02/21/20 00:00 02/21/20 08:02 0.9 % Sodium Chloride Flush 3 Ml Syringe IVFLUSH 3 ml QSHIFT [facility] Administration Labs CBC & Chem 7: 02/21/20 06:00 02/21/20 06:00 Assessment and Plan (1) Anemia: Status: Acute (2) Fecal occult blood test positive: Status: Acute Assessment and Plan: This is a 64 yo M who presented to the hospital with a mechanical fall. He was noted to be anemia (significant change since the last blood counts) with FOBT without mee bleeding. Admitted for further work up. 1. Acute vs Acute on Chronic blood loss anemia, MENDY risks factors for PUD include NSAID use for gout IV PPI for now s/p 1 unit PRBC, h/h stable post transfusion GI consult clears for now PO Iron 2. HypoCa asymptomatic corrected 6.5 acute on chronic await labs from SNF to determine work up po CaCO3 and IV x 1 3. DM POC QIDAC ISS hold oral 4. Thrombocytopenia chronic due to ITP 5. Gout will need to avoid nsaids DNR/DNI per MOLST DVT pptx, mechanical due to acute blood loss anemia
--- NOTE | 2020-02-21 10:23 | P.CNGI_ITS ---
History of Present Illness Data of Consult Service Date: 02/21/20 Requesting physician: Shyann Pal Primary Care Provider: Simona Fregoso MD HPI Reason for consult: GI bleed: Anemia, Heme + stool 64 yo male whom I was asked to see due to new significant anemia and Heme +stool. Patient was sent from [facility] to the ER after a fall. He was noted to have low H&H: 7/23.4. Patient was not aware of any bleeding. He has symptomatic gout (most affected is his L knee) for which he takes Ibuprofen prn. (He says he does not use daily???). He also is on ASA-81 mg daily. He has been a resident @ the facility for about 10 years. He admits that his appetite is off. He is on meds for heartburn/GERD. He did have EGD in the past but does not recall any specifics. He had a colonoscopy @ ?[facility]--about 6 years ago--says that was negative. Diabetic since ?1979? Hx Cardiomyopathy--ECHO here 2015--EF was ok. Mild LVH.There was some valvular changes--most significant was mild AR. His [employer] was Dr. Anders--has not been seen by Cardiology since Dr. Rouse retired. Hx of Atrial fibrillation. In ER the EKG was NSR. COPD--he used to smoke but was @ assisted living when campus went smoke free and he stopped. He says he was told he had COPD-no clear hx of asthma. Additional Diagnoses on admission chart: :-HYPOPARATHYROIDISM, OBESITY, CKD3. Review of Systems Constitutional: Constitutional: Reports fatigue, Reports frequent falls and Reports poor appetite ENT: Denies dysphagia Cardiovascular: Cardiovascular: Denies chest pain, Denies irregular heart rhythm and Denies palpitations Respiratory: Comments: Known COPD Gastrointestinal: Gastrointestinal: Denies abdominal pain, Denies dysphagia and Denies hematemesis Comments: Heme + stool Neurologic: Reports frequent falls Endocrine: Endocrine: Reports fatigue and Denies palpitations [facility] Past Medical History Medical History (Updated 02/21/20 @ 17:09 by Sheela Naik MD) Atrial fibrillation Blindness of left eye BPH (benign prostatic hyperplasia) CHF (congestive heart failure) COPD (chronic obstructive pulmonary disease) Diabetes GERD (gastroesophageal reflux disease) Hypothyroid Major depression Osteoarthritis 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 Family History Family History (Updated 02/21/20 @ 16:58 by Sheela Naik MD) Maternal Grandmother Diabetes Mother Diabetes Social History Social History (Updated 02/21/20 @ 16:46 by Sheela Naik MD) Household Members: Other Housing: [facility] Alcohol intake: former Smoking Status: Former smoker Smoked in Last 30 Days: No Use of substances other than those prescribed or required for medical reasons: No Currently Displaying Signs/Symptoms of Drug Intoxication Withdrawal: No Have you been hit, kicked, punched, or otherwise hurt by someone within the past year? If so, by whom?: No Do you feel safe in your current relationship?: No Current Relationship Is there a partner from a previous relationship who is making you feel unsafe now?: No Are you made to feel afraid or neglected: No Advance Directives: Yes Advance Directives Information Provided: Yes Advance Directives on File: Yes Advance Directives Date on File: 02/20/20 Do you have thoughts of harming others: None Do you have a plan to hurt others: No Plan Recently lost weight without trying: No service: No Current occupational status: retired [employer] Allergies Allergy/AdvReac Type Severity Reaction Status Date / Time colchicine Allergy Unknown diarrhea Verified 02/20/20 12:43 Home Medications Medication Instructions Recorded Confirmed Type Aspirin For Children 81 mg PO DAILY 02/21/20 02/21/20 History atorvastatin 1 tab PO DAILY 02/21/20 02/21/20 History carvedilol 1 tab PO BID 02/21/20 02/21/20 History citalopram 1 tab PO DAILY 02/21/20 02/21/20 History citalopram 1 tab PO DAILY 02/21/20 02/21/20 History furosemide 1 tab PO DAILY 02/21/20 02/21/20 History hydroxyzine HCl 25 mg PO DAILY 02/21/20 02/21/20 History insulin detemir U-100 [Levemir 100 unit SUBCUT BID 02/21/20 02/21/20 History U-100 Insulin] latanoprost 1 drp OPHTHALMIC (EYE) BEDTIME 02/21/20 02/21/20 History lisinopril 1 tab PO DAILY 02/21/20 02/21/20 History magnesium oxide 400 mg PO BID 02/21/20 02/21/20 History metformin 1 tab PO BID 02/21/20 02/21/20 History pentoxifylline 1 tab PO BID 02/21/20 02/21/20 History Physical Exam Vital Signs: Vital Signs: Last Vital Signs Temp 97.8 F 02/21/20 07:43 Pulse 82 02/21/20 07:43 Resp 18 02/21/20 07:43 BP 117/59 L 02/21/20 07:43 Pulse Ox 98 02/21/20 07:43 Body Mass Index 33.6 Const: General: comfortable, no acute distress and alert Nutritional Appearance: obese Resp: Effort & Inspection: Actively coughing and prolonged expiratory phase Auscultation: rhonchi Cardio: Rate: regular rate GI: Inspection: Yes obesity Auscultation: normal bowel sounds Rectal Exam - Male: Yes deferred Extrem: General: Yes edema (1-2+, skin shiny with some changes seen with CVS) Results Labs CBC & Chem 7: 02/22/20 08:03 02/22/20 08:03 Labs: Short CBC 02/20/20 02/21/20 02/21/20 Range/Units 13:50 00:58 06:00 WBC 6.8 7.2 8.0 (4.8-10.8) X10*3/uL Hgb 7.0 L* 7.9 L 8.3 L (14.0-18.0) g/dl Hct 23.4 L 26.0 L 27.4 L (42-52) % Plt Count 82 L 68 L 72 L (160-400) X10*3/uL FERRITIN-23-Platelet Count in 2019 was 50,000. SEE PCI BMP 02/20/20 02/21/20 13:50 06:00 Sodium 142 140 Potassium 4.0 4.5 Chloride 105 105 Carbon Dioxide 25 25 BUN 19 H 18 H Creatinine 1.07 0.99 Calcium 5.7 L* 5.9 L*HX OF HYPOPARATHYROIDISM--USUAL VALUE AROUND 7.1 Liver Function 02/20/20 Range/Units 13:50 Total Bilirubin 0.6 (0.0-1.0) mg/dL Direct Bilirubin 0.3 (0.0-0.5) mg/dL AST 33 (5-37) U/L ALT 17 (0-40) U/L Alkaline Phosphatase 95 (39-117) U/L Albumin 3.3 L--THIS IS NEW (3.5-5.0) g/dL Urine 02/20/20 Range/Units 15:47 Urine Color STRAW Urine Appearance CLEAR Urine pH 5.5 (5.0-8.0) Ur Specific [place] 1.020 (1.005-1.025) Urine Protein NEG (NEG-TRACE) MG/DL Urine Glucose (UA) NEG (NEG) MG/DL Imaging CT scan - abdomen: Radiologist's impression: [address] [address] [address] Scan Report Signed Patient: Darren Deleon RMR#: [id number] : 4Acct:[id number] Age/Sex: 64 / MADM Date: 02/20/20 Loc: HO.ED Attending Dr: Ordering Physician: KEERTHI BULLARD Date of Service: 02/20/20 Procedure(s): CT abdomen pelvis w con Accession Number(s): [id number] cc: KEERTHI BULLARD~ EXAMINATION: CT ABDOMEN AND PELVIS WITH CONTRAST CLINICAL INFORMATION: Patient with low hemoglobin/hematocrit question GI bleed. COMPARISON: CT of the abdomen and pelvis with contrast dated 07/09/2009. TECHNIQUE: Multidetector volumetric images were obtained from the superior aspect of the liver through the pubic symphysis following administration 85 mL of Omnipaque 350 intravenous contrast. Sagittal and coronal reformatted images were obtained on the technologist's workstation. Oral contrast: No This CT examination was performed using dose optimization techniques as appropriate, variously including the following: *Automated exposure control *Adjustment of mA and/or kV according to patient size (this includes techniques or standardized protocols for targeted exams where dose is matched to indication/reason for exam; i.e. extremities or head) *Use of iterative reconstruction technique DLP: 2016 mGy-cm FINDINGS: LOWER THORAX: Lung bases are clear. Heart is normal in size. No pericardial effusion or thickening. Coronary vascular calcifications. HEPATOBILIARY: Liver is normal in size and attenuation. There is mild nodularity of the hepatic contour suggesting chronic liver disease. No focal hepatic lesions. The gallbladder is present and otherwise unremarkable. No biliary dilatation. SPLEEN: Normal. PANCREAS: Normal. ADRENALS: Normal. KIDNEYS/URETERS: Symmetric nephrograms. Nonobstructive 0.7 cm calculus in the lower pole of the right kidney. Left renal cysts noted. Cyst in the upper pole of the left kidney demonstrates a small thin septation. No solid enhancing lesions. No hydronephrosis bilaterally. BLADDER: Partially decompressed by Palacios catheter. PELVIC ORGANS: Prostate is mildly enlarged. Central prostatic calcifications. Seminal vesicles are normal in caliber. GI TRACT: No dilated or thick walled loops of bowel. The appendix is unremarkable (15:56/106). Sigmoid diverticulosis. No contrast blush is appreciated in the small or large bowel to definitively suggest source of gastrointestinal bleeding. PERITONEUM/RETROPERITONEUM AND MESENTERY: No intraperitoneal free air or fluid. LYMPH NODES: No pathologically enlarged lymph nodes. VESSELS: Moderate aortoiliac atherosclerotic calcifications. BONES AND SOFT TISSUES: No aggressive lytic or blastic osseous lesions. Small fat-containing bilateral inguinal hernias. CT/CT abdomen pelvis w con IMPRESSION: Nonobstructing right nephrolithiasis. Diverticulosis. Mild nodularity of the hepatic contour suggesting chronic liver disease. Normal caliber small and large bowel. No acute bowel pathology appreciated. Dictated By:Shelby James MD Signed By:<Electronically signed by Shelby James MD in OV> Assessment and Plan (1) Anemia: Status: Acute 11/18/18--H&H: 11.8/35.2; TSH-normal. Ca++-7.1. Patient with significant anemia which appears to be more acute. He is @ risk for Esophagitis, NSAID or ASA induced gastritis, ulcer, etc. Discussed need to do EGD to assess for etiology. Patient was hesitant but agreed. (He is not excited about having a colonoscopy. ) NOTE PATIENT HAS A CHRONIC THROMBOCYTOPENIA. HIS CT ON THIS ADMISSION SUGGESTS NODULAR CHANGES IN HIS LIVER. HE VERY WELL HAVE UNDERLYING CHRONIC LIVER DISEASE. CT DID NOT SUGGEST PORTAL HYPERTENSION. (2) Fecal occult blood test positive: Status: Acute Patient has been on prn Ibuprofen He has agreed to EGD in AM to assess for ulcer disease, esophagitis, etc. He is okay for a low residue diet today. If vomits, revert to clears NPO after 3AM--/3. (3) Atrial fibrillation: Status: Acute Will repeat EKG preop. on ADMISSION WAS IN NSR. Might benefit from Cardiology consult due to hx of Cardiomyopathy, atrial fib etc. (His previous [employer] was Dr. Anders.) He has not seen anyone since. (4) 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: Problem details: had 5 surg associated but has no vision in that eye. Status: Chronic This is only surgery that he has had.
[2020-02-21 11:02] LABS: Glucose, Whole Blood 216 mg/dL (60-115)
[2020-02-21] MEDS: Calcium Gluconate/NaCl,Iso-Osm 2 GM/100 ML PLAST..BAG IV (11:07)
--- NOTE | 2020-02-21 11:15 | MHC.CM.PN ---
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 PT HAS A MOLST ON FILE. IMM DELIVERED CURRENT DC PLAN IS TO RETURN TO [facility] VIA CHAIR VAN
[2020-02-21 11:31] VITALS: BP 136/63; PULSE 76; RESP 18; TEMP 37.1; O2SAT 97
[2020-02-21 15:09] VITALS: BP 119/58; PULSE 79; RESP 18; TEMP 37.4; O2SAT 95
[2020-02-21 16:44] LABS: Glucose, Whole Blood 262 mg/dL (60-115)
[2020-02-21 17:21] LABS: Calcium 6.4 mg/dL (8.4-10.2)
[2020-02-21 18:46] VITALS: BP 124/61; PULSE 86; RESP 18; TEMP 36.2; O2SAT 96
[2020-02-21 20:40] LABS: Glucose, Whole Blood 213 mg/dL (60-115)
[2020-02-21] MEDS: Pentoxifylline ER 400 MG TABLET.ER PO (22:05)
[2020-02-21] MEDS: Latanoprost 0.005 % Ophth Sol 2.5 ML DROPS 1 DROP EYE-BOTH (22:08)
[2020-02-21 23:52] VITALS: BP 117/55; PULSE 76; RESP 18; TEMP 36.3; O2SAT 98
[2020-02-22] VITALS (13 sets, daily range): BP systolic 106–166; BP diastolic 47–93; PULSE 78–92; RESP 16–20; TEMP 19.8–37; O2SAT 94–98
[2020-02-22] MEDS: 0.9 % Sodium Chloride Flush 3 ML SYRINGE IVFLUSH ×4 (00:08→21:12)
[2020-02-22] MEDS: Albuterol/Iprat 2.5/0.5MG 3 ML AMPUL.NEB INHALE (04:46)
[2020-02-22] MEDS: Pantoprazole Sodium 40 MG/10 ML VIAL IVPUSH ×2 (05:15→18:07)
[2020-02-22 07:17] LABS: Glucose, Whole Blood 192 mg/dL (60-115)
[2020-02-22 08:33] LABS: Hematocrit 26.2 % (42-52); White Blood Count 6.4 X10*3/uL (4.8-10.8)
[2020-02-22 08:35] LABS: Hemoglobin 7.9 g/dl (14.0-18.0); Mean Corpuscular HGB Conc 30.2 g/dl (31.0-36.0); Mean Corpuscular Volume 89.4 fL (80-98); Mean Platelet Volume 13.2 fL (9.4-12.4); Red Blood Count 2.93 X10*6/uL (4.60-5.80); Red Cell Distribution Width 17.3 % (11.0-16.0)
[2020-02-22 08:37] LABS: PLT ABN DIST 1; Platelet Count 61 X10*3/uL (160-400)
[2020-02-22] MEDS: Nystatin Cream 15 GM TUBE 1 APPL TOPICAL ×2 (08:38→21:12)
[2020-02-22 08:53] LABS: Anion Gap 13 (12-20); Blood Urea Nitrogen 17 mg/dL (9-16); Calcium 6.2 mg/dL (8.4-10.2); Carbon Dioxide 28 mmol/L (22-29); Chloride 104 mmol/L (96-108); Estimated Glomerular Filt Rate > 60; Glucose Random 184 mg/dL (60-115); Potassium 4.3 mmol/l (3.3-5.1); Sodium 141 mmol/L (135-145)
--- NOTE | 2020-02-22 10:02 | PM.EVENT ---
Event Note Date of Service: 02/22/20 Event Note: POST EGD orders: Continue PPI IV for 24 hours. Diet Full liquid Carafate Suspension @ hs. Monitor H&H; TP/ALB Avoid vomiting, or strong coughing paroxysms. Hold any anticoag,ASA or Nsaids for 5 days if possible.
--- NOTE | 2020-02-22 10:04 | HO.ANESPROP2 ---
[facility] Past Medical History Medical History Atrial fibrillation Blindness of left eye BPH (benign prostatic hyperplasia) CHF (congestive heart failure) COPD (chronic obstructive pulmonary disease) Diabetes GERD (gastroesophageal reflux disease) Hypothyroid Major depression Osteoarthritis 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 Family History Family History Maternal Grandmother Diabetes Mother Diabetes Social History Social History Household Members: Other Housing: Residential Alcohol intake: former Smoking Status: Former smoker Smoked in Last 30 Days: No Use of substances other than those prescribed or required for medical reasons: No Currently Displaying Signs/Symptoms of Drug Intoxication Withdrawal: No Have you been hit, kicked, punched, or otherwise hurt by someone within the past year? If so, by whom?: No Do you feel safe in your current relationship?: No Current Relationship Is there a partner from a previous relationship who is making you feel unsafe now?: No Are you made to feel afraid or neglected: No Advance Directives: Yes Advance Directives Information Provided: Yes Advance Directives on File: Yes Advance Directives Date on File: 02/20/20 Do you have thoughts of harming others: None Do you have a plan to hurt others: No Plan Recently lost weight without trying: No service: No Current occupational status: retired [employer] Allergies Allergy/AdvReac Type Severity Reaction Status Date / Time colchicine Allergy Unknown diarrhea Verified 02/20/20 12:43 Home Medications Medication Instructions Recorded Confirmed Type Aspirin For Children 81 mg PO DAILY 02/21/20 02/21/20 History atorvastatin 1 tab PO DAILY 02/21/20 02/21/20 History carvedilol 1 tab PO BID 02/21/20 02/21/20 History citalopram 1 tab PO DAILY 02/21/20 02/21/20 History citalopram 1 tab PO DAILY 02/21/20 02/21/20 History furosemide 1 tab PO DAILY 02/21/20 02/21/20 History hydroxyzine HCl 25 mg PO DAILY 02/21/20 02/21/20 History insulin detemir U-100 [Levemir 100 unit SUBCUT BID 02/21/20 02/21/20 History U-100 Insulin] latanoprost 1 drp OPHTHALMIC (EYE) BEDTIME 02/21/20 02/21/20 History lisinopril 1 tab PO DAILY 02/21/20 02/21/20 History magnesium oxide 400 mg PO BID 02/21/20 02/21/20 History metformin 1 tab PO BID 02/21/20 02/21/20 History pentoxifylline 1 tab PO BID 02/21/20 02/21/20 History Exam Exam Date and Time: February 22, 2020 1004 Height,Weight and Vital Signs: Height 6 ft Weight 112.5 kg Last Vital Signs Temp 98.0 F 02/22/20 08:00 Pulse 78 02/22/20 08:00 Resp 18 02/22/20 08:00 BP 151/70 H 02/22/20 08:00 Pulse Ox 98 02/22/20 08:00 Pertinent Lab Results Pertinent Lab Results: Laboratory Tests 02/20/20 02/20/20 02/20/20 13:50 13:50 13:50 WBC 6.8 RBC 2.58 L Hgb 7.0 L* Hct 23.4 L MCV 90.7 MCH 27.1 MCHC 29.9 L RDW 17.4 H Plt Count 82 L MPV 13.0 H Immature Gran % (Auto) 0.9 H Neut % (Auto) 67.8 Lymph % (Auto) 12.3 L [place] % (Auto) 11.0 Eos % (Auto) 7.3 H Baso % (Auto) 0.7 Lymph # (Auto) 0.8 L [place] # (Auto) 0.8 Eos # (Auto) 0.5 H Baso # (Auto) 0.1 Abs Immat Gran (auto) 0.06 H Absolute Neuts (auto) 4.6 Absolute Nucleated RBC 0.000 Nucleated RBC % (auto) 0.0 Smear Tech's Comments Hold Purple Top SEE NOTE PT 14.6 H INR 1.2 H Sodium Potassium Chloride Carbon Dioxide Anion Gap BUN Creatinine Estim Creat Clear Calc Estimated GFR POC Glucose Random Glucose Calcium Magnesium Iron TIBC % Saturation Unsat Iron Binding Ferritin Total Bilirubin Direct Bilirubin AST ALT Alkaline Phosphatase Troponin I High Sens B-Natriuretic Peptide Total Protein Albumin Urine Color Urine Appearance Urine pH Ur Specific [place] Urine Protein Urine Glucose (UA) Urine Ketones Urine Blood Urine Nitrite Ur Leukocyte Esterase Stool Occult Blood Coronavirus (PCR) Influenza Type A (PCR) Influenza Type B (PCR) RSV RNA Qual (PCR) Blood Type Antibody Screen Crossmatch 02/20/20 02/20/20 02/20/20 13:50 13:50 15:31 WBC RBC Hgb Hct MCV MCH MCHC RDW Plt Count MPV Immature Gran % (Auto) Neut % (Auto) Lymph % (Auto) [place] % (Auto) Eos % (Auto) Baso % (Auto) Lymph # (Auto) [place] # (Auto) Eos # (Auto) Baso # (Auto) Abs Immat Gran (auto) Absolute Neuts (auto) Absolute Nucleated RBC Nucleated RBC % (auto) Smear Tech's Comments Hold Purple Top PT INR Sodium 142 Potassium 4.0 Chloride 105 Carbon Dioxide 25 Anion Gap 16 BUN 19 H Creatinine 1.07 Estim Creat Clear Calc 87.9 Estimated GFR > 60 POC Glucose Random Glucose 130 H Calcium 5.7 L* Magnesium 1.7 Iron 40 L TIBC 365 % Saturation 11 L Unsat Iron Binding 325 Ferritin 23 Total Bilirubin 0.6 Direct Bilirubin 0.3 AST 33 ALT 17 Alkaline Phosphatase 95 Troponin I High Sens 4.3 B-Natriuretic Peptide 111 H Total Protein 6.4 L Albumin 3.3 L Urine Color Urine Appearance Urine pH Ur Specific [place] Urine Protein Urine Glucose (UA) Urine Ketones Urine Blood Urine Nitrite Ur Leukocyte Esterase Stool Occult Blood Coronavirus (PCR) Influenza Type A (PCR) Influenza Type B (PCR) RSV RNA Qual (PCR) Blood Type O Positive Antibody Screen NEGATIVE Crossmatch See Detail 02/20/20 02/20/20 02/20/20 15:32 15:47 15:47 WBC RBC Hgb Hct MCV MCH MCHC RDW Plt Count MPV Immature Gran % (Auto) Neut % (Auto) Lymph % (Auto) [place] % (Auto) Eos % (Auto) Baso % (Auto) Lymph # (Auto) [place] # (Auto) Eos # (Auto) Baso # (Auto) Abs Immat Gran (auto) Absolute Neuts (auto) Absolute Nucleated RBC Nucleated RBC % (auto) Smear Tech's Comments Hold Purple Top PT INR Sodium Potassium Chloride Carbon Dioxide Anion Gap BUN Creatinine Estim Creat Clear Calc Estimated GFR POC Glucose Random Glucose Calcium Magnesium Iron TIBC % Saturation Unsat Iron Binding Ferritin Total Bilirubin Direct Bilirubin AST ALT Alkaline Phosphatase Troponin I High Sens B-Natriuretic Peptide Total Protein Albumin Urine Color STRAW Urine Appearance CLEAR Urine pH 5.5 Ur Specific [place] 1.020 Urine Protein NEG Urine Glucose (UA) NEG Urine Ketones NEG Urine Blood NEG Urine Nitrite NEG Ur Leukocyte Esterase NEG Stool Occult Blood POS Coronavirus (PCR) NEGATIVE Influenza Type A (PCR) NEGATIVE Influenza Type B (PCR) NEGATIVE RSV RNA Qual (PCR) NEGATIVE Blood Type Antibody Screen Crossmatch 02/20/20 02/21/20 02/21/20 20:59 00:58 01:38 WBC 7.2 RBC 2.87 L Hgb 7.9 L Hct 26.0 L MCV 90.6 MCH 27.5 MCHC 30.4 L RDW 17.1 H Plt Count 68 L MPV 12.7 H Immature Gran % (Auto) Neut % (Auto) Lymph % (Auto) [place] % (Auto) Eos % (Auto) Baso % (Auto) Lymph # (Auto) [place] # (Auto) Eos # (Auto) Baso # (Auto) Abs Immat Gran (auto) Absolute Neuts (auto) Absolute Nucleated RBC 0.000 Nucleated RBC % (auto) 0.0 Smear Tech's Comments Hold Purple Top PT INR Sodium Potassium Chloride Carbon Dioxide Anion Gap BUN Creatinine Estim Creat Clear Calc Estimated GFR POC Glucose 163 H 165 H Random Glucose Calcium Magnesium Iron TIBC % Saturation Unsat Iron Binding Ferritin Total Bilirubin Direct Bilirubin AST ALT Alkaline Phosphatase Troponin I High Sens B-Natriuretic Peptide Total Protein Albumin Urine Color Urine Appearance Urine pH Ur Specific [place] Urine Protein Urine Glucose (UA) Urine Ketones Urine Blood Urine Nitrite Ur Leukocyte Esterase Stool Occult Blood Coronavirus (PCR) Influenza Type A (PCR) Influenza Type B (PCR) RSV RNA Qual (PCR) Blood Type Antibody Screen Crossmatch 02/21/20 02/21/20 02/21/20 06:00 06:00 07:14 WBC 8.0 RBC 3.04 L Hgb 8.3 L Hct 27.4 L MCV 90.1 MCH 27.3 MCHC 30.3 L RDW 17.5 H Plt Count 72 L MPV 13.8 H Immature Gran % (Auto) 1.0 H Neut % (Auto) 75.8 H Lymph % (Auto) 9.4 L [place] % (Auto) 10.4 Eos % (Auto) 3.1 Baso % (Auto) 0.3 Lymph # (Auto) 0.8 L [place] # (Auto) 0.8 Eos # (Auto) 0.3 Baso # (Auto) 0.0 Abs Immat Gran (auto) 0.08 H Absolute Neuts (auto) 6.1 Absolute Nucleated RBC 0.000 Nucleated RBC % (auto) 0.0 Smear Tech's Comments VERIFIED Hold Purple Top PT INR Sodium 140 Potassium 4.5 Chloride 105 Carbon Dioxide 25 Anion Gap 15 BUN 18 H Creatinine 0.99 Estim Creat Clear Calc 95.0 Estimated GFR > 60 POC Glucose 181 H Random Glucose 186 H D Calcium 5.9 L* Magnesium Iron TIBC % Saturation Unsat Iron Binding Ferritin Total Bilirubin Direct Bilirubin AST ALT Alkaline Phosphatase Troponin I High Sens B-Natriuretic Peptide Total Protein Albumin Urine Color Urine Appearance Urine pH Ur Specific [place] Urine Protein Urine Glucose (UA) Urine Ketones Urine Blood Urine Nitrite Ur Leukocyte Esterase Stool Occult Blood Coronavirus (PCR) Influenza Type A (PCR) Influenza Type B (PCR) RSV RNA Qual (PCR) Blood Type Antibody Screen Crossmatch 02/21/20 02/21/20 02/21/20 10:50 16:34 16:47 WBC RBC Hgb Hct MCV MCH MCHC RDW Plt Count MPV Immature Gran % (Auto) Neut % (Auto) Lymph % (Auto) [place] % (Auto) Eos % (Auto) Baso % (Auto) Lymph # (Auto) [place] # (Auto) Eos # (Auto) Baso # (Auto) Abs Immat Gran (auto) Absolute Neuts (auto) Absolute Nucleated RBC Nucleated RBC % (auto) Smear Tech's Comments Hold Purple Top PT INR Sodium Potassium Chloride Carbon Dioxide Anion Gap BUN Creatinine Estim Creat Clear Calc Estimated GFR POC Glucose 216 H 262 H Random Glucose Calcium 6.4 L D Magnesium Iron TIBC % Saturation Unsat Iron Binding Ferritin Total Bilirubin Direct Bilirubin AST ALT Alkaline Phosphatase Troponin I High Sens B-Natriuretic Peptide Total Protein Albumin Urine Color Urine Appearance Urine pH Ur Specific [place] Urine Protein Urine Glucose (UA) Urine Ketones Urine Blood Urine Nitrite Ur Leukocyte Esterase Stool Occult Blood Coronavirus (PCR) Influenza Type A (PCR) Influenza Type B (PCR) RSV RNA Qual (PCR) Blood Type Antibody Screen Crossmatch 02/21/20 02/22/20 02/22/20 20:36 07:06 08:03 WBC 6.4 RBC 2.93 L Hgb 7.9 L Hct 26.2 L MCV 89.4 MCH 27.0 MCHC 30.2 L RDW 17.3 H Plt Count 61 L MPV 13.2 H Immature Gran % (Auto) Neut % (Auto) Lymph % (Auto) [place] % (Auto) Eos % (Auto) Baso % (Auto) Lymph # (Auto) [place] # (Auto) Eos # (Auto) Baso # (Auto) Abs Immat Gran (auto) Absolute Neuts (auto) Absolute Nucleated RBC 0.000 Nucleated RBC % (auto) 0.0 Smear Tech's Comments Hold Purple Top PT INR Sodium Potassium Chloride Carbon Dioxide Anion Gap BUN Creatinine Estim Creat Clear Calc Estimated GFR POC Glucose 213 H 192 H Random Glucose Calcium Magnesium Iron TIBC % Saturation Unsat Iron Binding Ferritin Total Bilirubin Direct Bilirubin AST ALT Alkaline Phosphatase Troponin I High Sens B-Natriuretic Peptide Total Protein Albumin Urine Color Urine Appearance Urine pH Ur Specific [place] Urine Protein Urine Glucose (UA) Urine Ketones Urine Blood Urine Nitrite Ur Leukocyte Esterase Stool Occult Blood Coronavirus (PCR) Influenza Type A (PCR) Influenza Type B (PCR) RSV RNA Qual (PCR) Blood Type Antibody Screen Crossmatch 02/22/20 08:03 WBC RBC Hgb Hct MCV MCH MCHC RDW Plt Count MPV Immature Gran % (Auto) Neut % (Auto) Lymph % (Auto) [place] % (Auto) Eos % (Auto) Baso % (Auto) Lymph # (Auto) [place] # (Auto) Eos # (Auto) Baso # (Auto) Abs Immat Gran (auto) Absolute Neuts (auto) Absolute Nucleated RBC Nucleated RBC % (auto) Smear Tech's Comments Hold Purple Top PT INR Sodium 141 Potassium 4.3 Chloride 104 Carbon Dioxide 28 Anion Gap 13 BUN 17 H Creatinine 0.99 Estim Creat Clear Calc 95.0 Estimated GFR > 60 POC Glucose Random Glucose 184 H Calcium 6.2 L Magnesium Iron TIBC % Saturation Unsat Iron Binding Ferritin Total Bilirubin Direct Bilirubin AST ALT Alkaline Phosphatase Troponin I High Sens B-Natriuretic Peptide Total Protein Albumin Urine Color Urine Appearance Urine pH Ur Specific [place] Urine Protein Urine Glucose (UA) Urine Ketones Urine Blood Urine Nitrite Ur Leukocyte Esterase Stool Occult Blood Coronavirus (PCR) Influenza Type A (PCR) Influenza Type B (PCR) RSV RNA Qual (PCR) Blood Type Antibody Screen Crossmatch Airway Mallampati Class: IV TM Dist: >3cm Neck ROM: Limited Denture: Upper and Lower
--- NOTE | 2020-02-22 11:11 | P.PNIM_ITS ---
Subjective Subjective Date of Service: 02/22/20 Interval History: seen and examined this AM no complaints awaiting EGD ROS General - no fevers or chills Cardiovascular - no chest pain Respiratory - no shortness of breath or cough Abdominal- no abdominal pain, nausea, vomiting, diarrhea Physical Exam Vital Signs: Vital Signs: Last Vital Signs Temp 98.2 F 02/22/20 10:20 Pulse 86 02/22/20 10:35 Resp 17 02/22/20 10:35 BP 124/56 L 02/22/20 10:35 Pulse Ox 96 02/22/20 10:20 Body Mass Index 33.6 Const: Other: General - no acute distress, appears comfortable Cardiovascular - regular rate and rhythm, S1-S2 Lungs - normal respiratory effort, clear to auscultation bilaterally, no wheezing Abdomen - soft, nontender, no rebound or guarding Extremities - no edema bilaterally Neuro - awake and alert, no focal deficits Objective Data Current Medications Generic Name Dose Route Start Last Admin Trade Name Freq PRN Reason Stop Dose Admin Acetaminophen 650 mg 02/20/20 18:36 Acetaminophen 325 Mg Tablet PO Q6H PRN Pain, Mild (Pain Scale 1-3) Albuterol/Ipratropium 3 ml 02/22/20 04:19 02/22/20 04:46 Albuterol/Iprat 2.5/0.5mg 3 Ml Ampul.Neb INHALE 3 ml RQ4H PRN Administration Shortness of Breath/Wheezing Atorvastatin Calcium 10 mg 02/22/20 09:00 02/22/20 08:37 Atorvastatin Calcium 10 Mg Tablet PO Not Given DAILY [facility] Calcium Carbonate 500 mg 02/21/20 15:00 02/22/20 08:37 Calcium Carbonate 500 Mg Tablet PO Not Given TID XI Docusate Sodium 100 mg 02/20/20 17:09 Docusate Sodium 100 Mg Capsule PO DAILY PRN Constipation Escitalopram Oxalate 15 mg 02/22/20 09:00 02/22/20 08:39 Escitalopram Oxalate 10 Mg Tablet PO Not Given DAILY [facility] Hydroxyzine HCl 25 mg 02/22/20 09:00 02/22/20 08:37 Hydroxyzine Hcl 25 Mg Tablet PO Not Given DAILY [facility] Lactated Ringer's 1,000 mls @ 100 mls/hr 02/22/20 10:15 Lr IVCONT .Q10H [facility] Insulin Human Lispro 0 unit 02/20/20 21:00 02/22/20 08:37 Insulin Lispro 100 Unit/Ml 3 Ml Vial SUBCUT Not Given QIDACHS [facility] Protocol Latanoprost 1 drop 02/21/20 21:00 02/21/20 22:08 Latanoprost 0.005 % Ophth Kathy 2.5 Ml Drops EYE-BOTH 1 drop BEDTIME XI Administration Nystatin 1 appl 02/22/20 09:00 02/22/20 08:38 Nystatin Cream 15 Gm Tube TOPICAL 1 appl BID XI Administration Protocol Ondansetron HCl 4 mg 02/20/20 17:09 Ondansetron Hcl 4 Mg/2 Ml Vial IVPUSH Q8H PRN Nausea and Vomiting Pantoprazole Sodium 40 mg 02/20/20 17:10 02/22/20 05:15 Pantoprazole Sodium 40 Mg/10 Ml Vial IVPUSH 40 mg BID@0630,1630 XI Administration Pentoxifylline 400 mg 02/21/20 21:00 02/22/20 08:38 Pentoxifylline Er 400 Mg Tablet.Er PO Not Given BID XI Sodium Chloride 3 ml 02/21/20 00:00 02/22/20 08:37 0.9 % Sodium Chloride Flush 3 Ml Syringe IVFLUSH 3 ml QSHIFT XI Administration Labs CBC & Chem 7: 02/22/20 08:03 02/22/20 08:03 Assessment and Plan (1) Anemia: Status: Acute (2) Fecal occult blood test positive: Status: Acute Assessment and Plan: This is a 64 yo M who presented to the hospital with a mechanical fall. He was noted to be anemia (significant change since the last blood counts) with FOBT without mee bleeding. Admitted for further work up. 1. Acute vs Acute on Chronic blood loss anemia, MENYD EGD today, completed -- await full report IV PPI, carafate full liquids and advance diet monitor h/h GI input appreciated 2. HypoCa improved with oral replacement continue the same will need outpatient f/u and work up 3. DM POC QIDAC ISS hold oral meds 4. Thrombocytopenia chronic due to ITP 5. Gout will need to avoid nsaids DNR/DNI per [facility]OL[facility] DVT pptx, mechanical due to acute blood loss anemia dispo: back to SNF, likely tomorrow if tolerating diet and h/h remains stable
[2020-02-22 11:12] LABS: Glucose, Whole Blood 188 mg/dL (60-115)
[2020-02-22 16:21] LABS: Glucose, Whole Blood 283 mg/dL (60-115)
[2020-02-22] MEDS: Insulin Lispro 100 UNIT/ML 3 ML VIAL SUBCUT ×2 (18:07→21:12)
[2020-02-22 20:50] LABS: Glucose, Whole Blood 289 mg/dL (60-115)
[2020-02-22] MEDS: Sucralfate 1 GM TABLET PO (21:12)
[2020-02-22] MEDS: Pentoxifylline ER 400 MG TABLET.ER PO (21:12)
[2020-02-23 03:20] VITALS: BP 143/67; PULSE 77; RESP 18; TEMP 36.4; O2SAT 97
[2020-02-23] MEDS: Pantoprazole Sodium 40 MG/10 ML VIAL IVPUSH (05:50)
--- NOTE | 2020-02-23 06:13 | PC.NURSE ---
Palacios pulled at 0600, due to void at 1200. Pt agreeable to wearing only briefs for incontinence, refused external cath and urinal. Pt states that he wears briefs at facility. Pt educated on maintaining skin integrity. Briefs provided.
[2020-02-23 06:42] LABS: Red Blood Count 2.85 X10*6/uL (4.60-5.80)
[2020-02-23 06:44] LABS: Hematocrit 25.6 % (42-52); Hemoglobin 7.7 g/dl (14.0-18.0); Mean Corpuscular HGB Conc 30.1 g/dl (31.0-36.0); Mean Corpuscular Volume 89.8 fL (80-98); Red Cell Distribution Width 17.1 % (11.0-16.0); White Blood Count 7.2 X10*3/uL (4.8-10.8)
[2020-02-23 06:45] LABS: PLT ABN DIST 1; Platelet Count 69 X10*3/uL (160-400)
[2020-02-23 07:12] LABS: Anion Gap 12 (12-20); Blood Urea Nitrogen 17 mg/dL (9-16); Calcium 6.3 mg/dL (8.4-10.2); Carbon Dioxide 27 mmol/L (22-29); Chloride 103 mmol/L (96-108); Creatinine Clr Calc Pharmacy 102.2; Estimated Glomerular Filt Rate > 60; Glucose Random 190 mg/dL (60-115); Potassium 4.4 mmol/l (3.3-5.1); Sodium 138 mmol/L (135-145)
[2020-02-23 07:25] LABS: Folate 8.1 ng/mL (> or = 4.0); Vitamin B12 259 pg/mL (200-900)
[2020-02-23] MEDS: Pentoxifylline ER 400 MG TABLET.ER PO ×2 (07:33→22:03)
[2020-02-23] MEDS: hydrOXYzine HCL 25 MG TABLET PO (07:33)
[2020-02-23] MEDS: Escitalopram Oxalate 10 MG TABLET 15 MG PO (07:34)
[2020-02-23] MEDS: Atorvastatin Calcium 10 MG TABLET PO (07:34)
[2020-02-23] MEDS: 0.9 % Sodium Chloride Flush 3 ML SYRINGE IVFLUSH ×3 (07:38→22:03)
[2020-02-23 08:00] VITALS: RESP 18
[2020-02-23 08:40] LABS: Glucose, Whole Blood 207 mg/dL (60-115)
[2020-02-23] MEDS: Nystatin Cream 15 GM TUBE 1 APPL TOPICAL ×2 (08:54→22:03)
[2020-02-23] MEDS: Insulin Lispro 100 UNIT/ML 3 ML VIAL SUBCUT ×4 (08:54→22:03)
[2020-02-23 13:11] LABS: Glucose, Whole Blood 157 mg/dL (60-115)
--- NOTE | 2020-02-23 13:45 | HO.POSTANES ---
Post Anesthesia Evaluation Post Anesthesia Evaluation Vital Signs: Vital Signs Temp Pulse Resp BP Pulse Ox 02/23/20 08:00 18 02/23/20 03:20 97.6 F 77 18 143/67 H 97 Anesthesia: General Mental Status: Awake Pain Control: Satisfactory Nausea/Vomiting: None Hydration: Adequate Anesthesia-Related Issues: No Anes. Related Issues
[2020-02-23 13:55] VITALS: BP 139/55; PULSE 78; RESP 18; TEMP 36.2; O2SAT 98
[2020-02-23 14:02] VITALS: BMI 33.6
[2020-02-23 16:00] VITALS: BP 157/74; PULSE 70; RESP 20; TEMP 36.4; O2SAT 98
--- NOTE | 2020-02-23 16:01 | HO.PM.IMPN ---
Subjective Subjective Date of Service: 02/23/20 Interval History: seen and examined this AM doing better, no pain no bleeding ROS General - no fevers or chills Cardiovascular - no chest pain Respiratory - no shortness of breath or cough Abdominal- no abdominal pain, nausea, vomiting, diarrhea Physical Exam Vital Signs: Vital Signs: Last Vital Signs Temp 97.1 F 02/23/20 13:55 Pulse 78 02/23/20 13:55 Resp 18 02/23/20 13:55 BP 139/55 L 02/23/20 13:55 Pulse Ox 98 02/23/20 13:55 Body Mass Index 33.6 Const: Other: General - no acute distress, appears comfortable Cardiovascular - regular rate and rhythm, S1-S2 Lungs - normal respiratory effort, clear to auscultation bilaterally, no wheezing Abdomen - soft, nontender, no rebound or guarding Extremities - no edema bilaterally Neuro - awake and alert, no focal deficits Objective Data Current Medications Generic Name Dose Route Start Last Admin Trade Name Freq PRN Reason Stop Dose Admin Acetaminophen 650 mg 02/20/20 18:36 Acetaminophen 325 Mg Tablet PO Q6H PRN Pain, Mild (Pain Scale 1-3) Albuterol/Ipratropium 3 ml 02/22/20 04:19 02/22/20 04:46 Albuterol/Iprat 2.5/0.5mg 3 Ml Ampul.Neb INHALE 3 ml RQ4H PRN Administration Shortness of Breath/Wheezing Atorvastatin Calcium 10 mg 02/22/20 09:00 02/23/20 07:34 Atorvastatin Calcium 10 Mg Tablet PO 10 mg DAILY XI Administration Calcium Carbonate 500 mg 02/21/20 15:00 02/23/20 12:59 Calcium Carbonate 500 Mg Tablet PO 500 mg TID XI Administration Docusate Sodium 100 mg 02/20/20 17:09 Docusate Sodium 100 Mg Capsule PO DAILY PRN Constipation Escitalopram Oxalate 15 mg 02/22/20 09:00 02/23/20 07:34 Escitalopram Oxalate 10 Mg Tablet PO 15 mg DAILY XI Administration Ferrous Sulfate 324 mg 02/23/20 17:00 Ferrous Sulfate 324 Mg Tablet. PO BIDWM XI Hydroxyzine HCl 25 mg 02/22/20 09:00 02/23/20 07:33 Hydroxyzine Hcl 25 Mg Tablet PO 25 mg DAILY XI Administration Insulin Human Lispro 0 unit 02/20/20 21:00 02/23/20 12:58 Insulin Lispro 100 Unit/Ml 3 Ml Vial SUBCUT 2 unit QIDACHS XI Administration Protocol Latanoprost 1 drop 02/21/20 21:00 02/22/20 21:13 Latanoprost 0.005 % Ophth Kathy 2.5 Ml Drops EYE-BOTH Not Given BEDTIME XI Nystatin 1 appl 02/22/20 09:00 02/23/20 08:54 Nystatin Cream 15 Gm Tube TOPICAL 1 appl BID XI Administration Protocol Ondansetron HCl 4 mg 02/20/20 17:09 Ondansetron Hcl 4 Mg/2 Ml Vial IVPUSH Q8H PRN Nausea and Vomiting Pantoprazole Sodium 40 mg 02/20/20 17:10 02/23/20 05:50 Pantoprazole Sodium 40 Mg/10 Ml Vial IVPUSH 40 mg BID@0630,1630 XI Administration Pentoxifylline 400 mg 02/21/20 21:00 02/23/20 07:33 Pentoxifylline Er 400 Mg Tablet.Er PO 400 mg BID XI Administration Sodium Chloride 3 ml 02/21/20 00:00 02/23/20 07:38 0.9 % Sodium Chloride Flush 3 Ml Syringe IVFLUSH 3 ml QSHIFT XI Administration Sucralfate 1 gm 02/22/20 21:00 02/22/20 21:12 Sucralfate 1 Gm Tablet PO 1 gm BEDTIME XI Administration Labs CBC & Chem 7: 02/23/20 05:46 02/23/20 05:46 Assessment and Plan (1) Anemia: Status: Acute (2) Fecal occult blood test positive: Status: Acute Assessment and Plan: This is a 64 yo M who presented to the hospital with a mechanical fall. He was noted to be anemia (significant change since the last blood counts) with FOBT without mee bleeding. Admitted for further work up. 1. Acute vs Acute on Chronic blood loss anemia, MENDY s/p EGD small ucleration at GE junction. IV PPI, carafate -- change to PO PPI if h/h remains stable advance to low residue monitor h/h GI input appreciated 2. HypoCa improved with oral replacement continue the same will need outpatient f/u and work up 3. DM POC QIDAC ISS hold oral meds 4. Thrombocytopenia chronic due to ITP 5. Gout will need to avoid nsaids DNR/DNI per MOLST DVT pptx, mechanical due to acute blood loss anemia dispo: back to SNF, likely tomorrow if tolerating diet and h/h remains stable
[2020-02-23 16:51] LABS: Glucose, Whole Blood 235 mg/dL (60-115)
[2020-02-23 16:51] LABS: Hematocrit 28.4 % (42-52); Hemoglobin 8.5 g/dl (14.0-18.0)
[2020-02-23] MEDS: Ferrous Sulfate 324 MG TABLET.DR PO (17:21)
--- NOTE | 2020-02-23 18:25 | OP_ITS ---
SURGEON: Sheela Naik MD PREOPERATIVE DIAGNOSIS: Gastrointestinal bleed. POSTOPERATIVE DIAGNOSIS: Erosive esophagitis, circumferential, at GE junction with question small Nancy-Jhaveri tear oozing. PROCEDURE PERFORMED: EGD with hemospray application. ESTIMATED BLOOD LOSS: Less than 5 mL. COMPLICATIONS: No complications. ANESTHESIA: General by Dr. Villasenor, anesthesiologist. ASSISTANTS:NONE SPECIMENS: No specimens removed. The patient resides at [facility]. AUTO DETAILER: Dr. Naik. FINDINGS: Video endoscope was introduced without difficulty. It was navigated easily through the posterior pharynx alongside the endotracheal tube into the esophagus. Esophageal mucosa was normal down to the level of GE junction, in this region there is circumferential friable erosive changes with oozing apparent at the 7 o'clock position. There was a suggestion of a superficial linear tear (potentially consistent with Nancy-Jhaveri), distal to this was a small hiatal hernia. On entering the stomach, gastric mucosa appeared normal. There was mild erythema in the prepyloric region. Duodenal bulb and duodenum appeared endoscopically normal. PLAN: The patient will be treated with IV PPI therapy for additional 24 hours. Carafate suspension at bedtime. Optimize protein-calorie nutrition. Avoid any extensive periods of cough or vomiting. Hold any anti-coagulant, aspirin, or Nsaid therapy for at least 5 days if possible. MATH AND SCIENCES DEPARTMENT CHAIR: No assistant director of plant operations. GRAFT OR IMPLANTS: No grafts or implants. CONDITION: Postprocedure, stable. Sheela Naik MD MEN/MODL / [id number] MTDD
[2020-02-23 19:31] VITALS: BP 126/62; PULSE 89; RESP 20; TEMP 36.4; O2SAT 98
[2020-02-23 21:05] LABS: Glucose, Whole Blood 240 mg/dL (60-115)
[2020-02-23] MEDS: Sucralfate 1 GM TABLET PO (22:03)
[2020-02-23] MEDS: Latanoprost 0.005 % Ophth Sol 2.5 ML DROPS 1 DROP EYE-BOTH (22:03)
[2020-02-24] VITALS (8 sets, daily range): BP systolic 117–185; BP diastolic 61–87; PULSE 77–89; RESP 16–20; TEMP 36.1–37.2; O2SAT 94–99
[2020-02-24] MEDS: Omeprazole 40 MG CAPSULE.DR PO ×2 (06:52→16:41)
[2020-02-24] MEDS: Ferrous Sulfate 324 MG TABLET.DR PO ×2 (08:43→16:42)
[2020-02-24] MEDS: 0.9 % Sodium Chloride Flush 3 ML SYRINGE IVFLUSH ×2 (08:43→16:41)
[2020-02-24] MEDS: Insulin Lispro 100 UNIT/ML 3 ML VIAL SUBCUT ×4 (08:43→21:41)
[2020-02-24] MEDS: Pentoxifylline ER 400 MG TABLET.ER PO ×2 (08:43→21:42)
[2020-02-24] MEDS: Atorvastatin Calcium 10 MG TABLET PO (08:43)
[2020-02-24] MEDS: hydrOXYzine HCL 25 MG TABLET PO (08:43)
[2020-02-24] MEDS: Nystatin Cream 15 GM TUBE 1 APPL TOPICAL ×2 (08:44→21:47)
[2020-02-24] MEDS: Escitalopram Oxalate 10 MG TABLET 15 MG PO (08:44)
[2020-02-24 08:51] LABS: Glucose, Whole Blood 208 mg/dL (60-115)
--- NOTE | 2020-02-24 10:27 | MHC.CM.PN ---
IMM 02/24/2020 Male 64 Dx GIB DP return to [facility] via [facility]. [facility] JUSTOWRITER OPERATOR, Annmarie Toscano reports that the patient has had 2 falls within 2 weeks. They require a PT eval and Covid test prior to transfer. Patient is LTC P.T. eval deferred. Facility notified. CM will follow.
[2020-02-24 12:14] LABS: Glucose, Whole Blood 209 mg/dL (60-115)
--- NOTE | 2020-02-24 14:35 | HO.PM.IMPN ---
Subjective Subjective Date of Service: 02/24/20 Interval History: Patient denies nausea vomiting or GI bleed, feels weak, at nursing facility able to ambulate to bathroom otherwise mostly wheelchair-bound. General no headache, no dizziness no fever chills. CVS no chest pain, no palpitation. Respiratory no cough, no sputum production, no respiratory distress. Gastrointestinal no nausea, no vomiting, no abdominal pain Physical Exam Vital Signs: Vital Signs: Last Vital Signs Temp 98.9 F 02/24/20 12:55 Pulse 83 02/24/20 12:55 Resp 20 02/24/20 12:55 BP 156/70 H 02/24/20 12:55 Pulse Ox 99 02/24/20 12:55 Body Mass Index 33.6 Const: Other: General patient resting comfortably in no acute distress. Neck is supple no JVD. CVS regular rate rhythm, Respiratory lungs clear to auscultation, no respiratory distress Gastrointestinal abdomen soft, nontender, bowel sounds audible, Extremities no clubbing cyanosis or edema. Neuro nonfocal Skin no rash Objective Data Current Medications Generic Name Dose Route Start Last Admin Trade Name Freq PRN Reason Stop Dose Admin Acetaminophen 650 mg 02/20/20 18:36 Acetaminophen 325 Mg Tablet PO Q6H PRN Pain, Mild (Pain Scale 1-3) Albuterol/Ipratropium 3 ml 02/22/20 04:19 02/22/20 04:46 Albuterol/Iprat 2.5/0.5mg 3 Ml Ampul.Neb INHALE 3 ml RQ4H PRN Administration Shortness of Breath/Wheezing Atorvastatin Calcium 10 mg 02/22/20 09:00 02/24/20 08:43 Atorvastatin Calcium 10 Mg Tablet PO 10 mg DAILY XI Administration Calcium Carbonate 500 mg 02/21/20 15:00 02/24/20 08:43 Calcium Carbonate 500 Mg Tablet PO 500 mg TID XI Administration Docusate Sodium 100 mg 02/20/20 17:09 Docusate Sodium 100 Mg Capsule PO DAILY PRN Constipation Escitalopram Oxalate 15 mg 02/22/20 09:00 02/24/20 08:44 Escitalopram Oxalate 10 Mg Tablet PO 15 mg DAILY XI Administration Ferrous Sulfate 324 mg 02/23/20 17:00 02/24/20 08:43 Ferrous Sulfate 324 Mg Tablet. PO 324 mg BIDWM XI Administration Hydroxyzine HCl 25 mg 02/22/20 09:00 02/24/20 08:43 Hydroxyzine Hcl 25 Mg Tablet PO 25 mg DAILY XI Administration Insulin Human Lispro 0 unit 02/20/20 21:00 02/24/20 11:52 Insulin Lispro 100 Unit/Ml 3 Ml Vial SUBCUT 4 unit QIDACHS XI Administration Protocol Latanoprost 1 drop 02/21/20 21:00 02/23/20 22:03 Latanoprost 0.005 % Ophth Kathy 2.5 Ml Drops EYE-BOTH 1 drop BEDTIME XI Administration Nystatin 1 appl 02/22/20 09:00 02/24/20 08:44 Nystatin Cream 15 Gm Tube TOPICAL 1 appl BID XI Administration Protocol Omeprazole 40 mg 02/24/20 06:30 02/24/20 06:52 Omeprazole 40 Mg Capsule. PO 40 mg BID@0630,1630 XI Administration Ondansetron HCl 4 mg 02/20/20 17:09 Ondansetron Hcl 4 Mg/2 Ml Vial IVPUSH Q8H PRN Nausea and Vomiting Pentoxifylline 400 mg 02/21/20 21:00 02/24/20 08:43 Pentoxifylline Er 400 Mg Tablet.Er PO 400 mg BID XI Administration Sodium Chloride 3 ml 02/21/20 00:00 02/24/20 08:43 0.9 % Sodium Chloride Flush 3 Ml Syringe IVFLUSH 3 ml QSHIFT XI Administration Sucralfate 1 gm 02/22/20 21:00 02/23/20 22:03 Sucralfate 1 Gm Tablet PO 1 gm BEDTIME XI Administration Labs CBC & Chem 7: 02/23/20 16:30 02/23/20 05:46 Assessment and Plan (1) Anemia: Status: Acute (2) Fecal occult blood test positive: Status: Acute (3) Thrombocytopenia: Status: Acute (4) Diabetes: Status: Acute (5) Hypocalcemia: Status: Acute Assessment and Plan: This is a 64 yo M who presented to the hospital with a mechanical fall. He was noted to be anemia (significant change since the last blood counts) with FOBT without mee bleeding. Admitted for further work up. 1. Acute vs Acute on Chronic blood loss anemia, MENDY s/p EGD found to small ucleration at GE junction patient treated with IV PPI, carafate now on PO PPI h/h remains stable Tolerating low residue diet, will obtain a COVID test prior to discharge to rehab. Hold aspirin. 2. HypoCa improved with oral replacement will need outpatient follow-up and workup 3. DM Patient takes Levemir 100 units b.i.d. and NovoLog 12 units at a.m. and 30 units at afternoon at 8 units at supper , and was on Glucophage twice daily, currently on insulin sliding scale POC QIDAC Blood sugar trending up in 200 range will start patient on low-dose Levemir insulin 4. Thrombocytopenia chronic due to ITP platelet count remains stable around 69,000 5. Hypertension noted to have elevated blood pressures reviewed home medication patient was on Coreg 12.5 mg b.i.d., Lasix 20 mg daily, question on lisinopril Requested pharmacy to verify home medication will place patient on Coreg and follow blood pressure closely and adjust medication as per home med list. 6. Gout will avoid nsaids DNR/DNI per MOLST DVT pptx, mechanical due to acute blood loss anemia dispo: back to SNF, likely tomorrow if tolerating diet and h/h remains stable
[2020-02-24 14:57] LABS: COVID-19 Test Negative (Negative)
[2020-02-24 16:45] LABS: Glucose, Whole Blood 219 mg/dL (60-115)
[2020-02-24 21:19] LABS: Glucose, Whole Blood 264 mg/dL (60-115)
[2020-02-24] MEDS: Insulin Glargine,Hum.rec.anlog 100 UNIT/ML 10 ML VIAL 25 UNIT SUBCUT (21:40)
[2020-02-24] MEDS: Sucralfate 1 GM TABLET PO (21:42)
[2020-02-24] MEDS: carvediloL 6.25 MG TABLET PO (21:42)
[2020-02-24] MEDS: Latanoprost 0.005 % Ophth Sol 2.5 ML DROPS 1 DROP EYE-BOTH (21:47)
[2020-02-25] VITALS: BP 138/53; PULSE 75; RESP 18; TEMP 37.1; O2SAT 97
[2020-02-25] MEDS: 0.9 % Sodium Chloride Flush 3 ML SYRINGE IVFLUSH ×2 (00:13→08:37)
[2020-02-25 04:00] VITALS: BP 150/76; PULSE 69; RESP 18; TEMP 36.8; O2SAT 99
[2020-02-25] MEDS: Omeprazole 40 MG CAPSULE.DR PO (06:39)
[2020-02-25 06:50] LABS: Hematocrit 27.5 % (42-52); Hemoglobin 8.2 g/dl (14.0-18.0)
[2020-02-25 07:35] LABS: Glucose, Whole Blood 275 mg/dL (60-115)
[2020-02-25 07:38] VITALS: BP 131/58; PULSE 70; RESP 18; TEMP 37.2; O2SAT 98
[2020-02-25] MEDS: Insulin Lispro 100 UNIT/ML 3 ML VIAL SUBCUT ×2 (08:36→11:52)
[2020-02-25] MEDS: Escitalopram Oxalate 10 MG TABLET 15 MG PO (08:37)
[2020-02-25] MEDS: Atorvastatin Calcium 10 MG TABLET PO (08:38)
[2020-02-25] MEDS: hydrOXYzine HCL 25 MG TABLET PO (08:38)
[2020-02-25] MEDS: Ferrous Sulfate 324 MG TABLET.DR PO (08:38)
[2020-02-25] MEDS: Pentoxifylline ER 400 MG TABLET.ER PO (08:38)
[2020-02-25] MEDS: carvediloL 6.25 MG TABLET PO (08:38)
[2020-02-25] MEDS: Nystatin Cream 15 GM TUBE 1 APPL TOPICAL (08:39)
[2020-02-25] MEDS: Docusate Sodium 100 MG CAPSULE PO (08:46)
[2020-02-25 11:24] LABS: Glucose, Whole Blood 208 mg/dL (60-115)
[2020-02-25 11:28] VITALS: BP 118/50; PULSE 59; RESP 18; TEMP 36.7; O2SAT 97
--- NOTE | 2020-02-25 11:45 | PM.DS ---
DS: Providers Provider Date of Service: 03/22/20 Date of admission: 02/20/20 17:09 Primary care physician: Simona Fregoso MD Consults: 02/20/20 17:09 Consult to Gastroenterology Routine Consulting Provider: Sheela Naik Reason for consultation: gib Has provider been notified: No DS: Diagnosis Discharge Diagnosis (1) Anemia: Status: Acute (2) Fecal occult blood test positive: Status: Resolved (3) Thrombocytopenia: (4) Diabetes: (5) Hypocalcemia: Status: Resolved DS: Medications Discharge Medications Home Medications: Home Medications Medication Instructions Recorded Confirmed Aspirin For Children 81 mg PO DAILY 02/21/20 02/21/20 atorvastatin 1 tab PO DAILY 02/21/20 02/21/20 carvedilol 1 tab PO BID 02/21/20 02/21/20 citalopram 1 tab PO DAILY 02/21/20 02/21/20 citalopram 1 tab PO DAILY 02/21/20 02/21/20 furosemide 1 tab PO DAILY 02/21/20 02/21/20 hydroxyzine HCl 25 mg PO DAILY 02/21/20 02/21/20 insulin detemir U-100 [Levemir 100 unit SUBCUT BID 02/21/20 02/21/20 U-100 Insulin] latanoprost 1 drp OPHTHALMIC (EYE) BEDTIME 02/21/20 02/21/20 lisinopril 1 tab PO DAILY 02/21/20 02/21/20 magnesium oxide 400 mg PO BID 02/21/20 02/21/20 metformin 1 tab PO BID 02/21/20 02/21/20 pentoxifylline 1 tab PO BID 02/21/20 02/21/20 DS: Summary Hospital Course Hospital Course: Chief Complaint: Fall This is a 64-year-old male who was brought from [facility] due to a fall. Patient reports having mechanical fall. He denies any loss of consciousness, he denies hitting his head. Brain CT was negative. Lab work done which revealed anemia which was new compared to his baseline. H/H was 7/23.4 and he was also noted to have heme-positive stools. He denies any mee bleeding. He reports using ibuprofen daily due to gout. He also reportedly takes aspirin daily. He denies previous history of GI bleeding. He underwent a CT scan of the abdomen showed with no other acute bowel pathology. Hospital course: 1. Acute vs Acute on Chronic blood loss anemia, MENDY s/p EGD on 02/22, found to have a small ucleration at GE junction patient treated with IV PPI, carafate now on PO PPI . Hemoglobin has remained stable Tolerating low residue diet, will obtain a COVID test prior to discharge to rehab. Stop Aspirin 2. HypoCalcemia improved with oral replacement will need outpatient follow-up and workup 3. DM Patient takes Levemir 100 units b.i.d. and NovoLog 12 units at a.m. and 30 units at afternoon at 8 units at supper , and was on Glucophage twice daily, currently on insulin sliding scale POC QIDAC Blood sugar trending up in 200 range will start patient on low-dose Levemir insulin 4. Thrombocytopenia chronic due to ITP platelet count remains stable around 69,000 5. Hypertension noted to have elevated blood pressures reviewed home medication patient was on Coreg 12.5 mg b.i.d., Lasix 20 mg daily, question on lisinopril Requested pharmacy to verify home medication will place patient on Coreg and follow blood pressure closely and adjust medication as per home med list. 6. Gout will avoid nsaids Time Spent with Patient Time attestation: Total time spent providing and/or coordinating discharge services: Physical Exam Vital Signs: Vital Signs: Last Vital Signs Temp 98.1 F 02/25/20 11:28 Pulse 59 02/25/20 11:28 Resp 18 02/25/20 11:28 BP 118/50 L 02/25/20 11:28 Pulse Ox 97 02/25/20 11:28 Body Mass Index 33.6 DS: Data Data Completed and Pending Labs on day of discharge: 02/20/20 13:16 ECG 12 lead EKG Stat EKG Documentation DIRECTED XR chest 2V Stat XR knee LT 4V Stat 02/20/20 13:50 B Type Natriuretic Peptide Stat Basic Metabolic Panel Stat Complete Blood Count Auto Diff Stat Ferritin Stat Hold Lav - Possible Hematology Stat IRON PROFILE Stat Liver Panel Stat Magnesium Stat Prothrombin Time INR Stat Troponin-I High Sensitivity Stat Vitamin B12 and Folate Stat 02/20/20 14:26 CT abdomen pelvis w con Stat CT head/brain wo con Stat 02/20/20 15:15 0.9 % Sodium Chloride [Ns] 1,000 ml IVCONT 999 mls/hr 02/20/20 15:23 iohexoL 350 MG/ML [Omnipaque 350 MG/ML] 100 ml IV ONCE ONE 02/20/20 15:31 Red Blood Cells Stat Type and Screen Stat 02/20/20 15:32 SARS-CoV2/FLU/RSV Stat 02/20/20 15:47 OBSX1 Stat UA CC w/rflx Micro + Cult Stat 02/20/20 16:22 Add Laboratory Test Stat 02/20/20 17:03 Transfer Order Routine 02/20/20 17:06 Add Laboratory Test Stat 02/20/20 17:10 Pantoprazole Sodium [Protonix] 40 mg IVPUSH BID@0630,1630 02/20/20 17:27 Glucose, blood poc QIDACHS 02/20/20 18:36 Intake and Output QSHIFTE Vital Signs Q4HR 02/20/20 Dinner Clear Liquid Diet 02/20/20 20:59 Glucose, Whole Blood Routine 02/21/20 00:58 Complete Blood Count no Diff Routine 02/21/20 01:38 Glucose, Whole Blood Routine 02/21/20 06:00 Basic Metabolic Panel DAILY@0600 Complete Blood Count Auto Diff DAILY@0600 SLIDE REVIEW Routine 02/21/20 07:14 Glucose, Whole Blood Routine 02/21/20 10:14 Calcium Gluconate/NaCl,Iso-Osm [Calcium Gluconate] 2 gm in 100 ml IV ONCE 02/21/20 10:50 Glucose, Whole Blood Routine 02/21/20 Lunch Regular Diet 02/21/20 16:34 Glucose, Whole Blood Routine 02/21/20 16:47 Calcium Routine 02/21/20 20:36 Glucose, Whole Blood Routine 02/22/20 07:06 Glucose, Whole Blood Routine 02/22/20 07:56 EPINEPHrine [Adrenalin] 1 mg IVPUSH .STK-MED ONE 02/22/20 08:03 Basic Metabolic Panel Routine Complete Blood Count no Diff Routine 02/22/20 09:00 citalopram 1 tab PO DAILY citalopram 1 tab PO DAILY 02/22/20 09:06 Lidocaine HCl 2 % MPF [Xylocaine 2 % MPF] 5 ml .ROUTE .STK-MED ONE Succinylcholine Chloride [Quelicin] 100 mg IVPUSH .STK-MED ONE dexAMETHasone sod phosphate [Decadron] 4 mg .ROUTE .STK-MED ONE ondansetron HCL [Zofran] 4 mg .ROUTE .STK-MED ONE propofoL [Diprivan] 200 mg IVPUSH .STK-MED ONE 02/22/20 Breakfast NPO Diet 02/22/20 10:08 Continuous pulse oximetry CONT Vital Signs Q5MIN 02/22/20 10:15 Lactated Ringers [Lr] 1,000 ml IVCONT 100 mls/hr 02/22/20 11:01 Glucose, Whole Blood Routine 02/22/20 Lunch Full Liquid Diet 02/22/20 16:17 Glucose, Whole Blood Routine 02/22/20 20:32 Glucose, Whole Blood Routine 02/23/20 05:46 Basic Metabolic Panel DAILY@0600 Complete Blood Count no Diff DAILY@0600 02/23/20 08:37 Glucose, Whole Blood Routine 02/23/20 Breakfast Regular Diet 02/23/20 12:54 Glucose, Whole Blood Routine 02/23/20 16:30 Hemoglobin and Hematocrit Stat 02/23/20 16:40 Glucose, Whole Blood Routine 02/23/20 20:44 Glucose, Whole Blood Routine 02/24/20 08:32 Glucose, Whole Blood Routine 02/24/20 11:46 Glucose, Whole Blood Routine 02/24/20 14:34 COVID-19 ID NOW ([facility]) Urgent 02/24/20 16:12 Glucose, Whole Blood Routine 02/24/20 21:15 Glucose, Whole Blood Routine 02/25/20 05:45 Hemoglobin and Hematocrit Routine 02/25/20 07:31 Glucose, Whole Blood Routine 02/25/20 11:15 Glucose, Whole Blood Routine Laboratory Last Values WBC 7.2 X10*3/uL (4.8-10.8) 02/23/20 05:46 RBC 2.85 X10*6/uL (4.60-5.80) L 02/23/20 05:46 Hgb 8.2 g/dl (14.0-18.0) L 02/25/20 05:45 Hct 27.5 % (42-52) L 02/25/20 05:45 MCV 89.8 fL (80-98) 02/23/20 05:46 MCH 27.0 pg (27.0-33.0) 02/23/20 05:46 MCHC 30.1 g/dl (31.0-36.0) L 02/23/20 05:46 RDW 17.1 % (11.0-16.0) H 02/23/20 05:46 Plt Count 69 X10*3/uL (160-400) L 02/23/20 05:46 MPV Not Reportable 02/23/20 05:46 Immature Gran % (Auto) 1.0 % (0.0-0.4) H 02/21/20 06:00 Neut % (Auto) 75.8 % (45-73) H 02/21/20 06:00 Lymph % (Auto) 9.4 % (20-40) L 02/21/20 06:00 [place] % (Auto) 10.4 % (2-11) 02/21/20 06:00 Eos % (Auto) 3.1 % (0-4) 02/21/20 06:00 Baso % (Auto) 0.3 % (0-2) 02/21/20 06:00 Lymph # (Auto) 0.8 X10*3/uL (1.2-4.9) L 02/21/20 06:00 [place] # (Auto) 0.8 X10*3/uL (0.1-1.2) 02/21/20 06:00 Eos # (Auto) 0.3 X10*3/uL (0.0-0.4) 02/21/20 06:00 Baso # (Auto) 0.0 X10*3/uL (0.0-0.2) 02/21/20 06:00 Abs Immat Gran (auto) 0.08 X10*3/uL (0.00-0.03) H 02/21/20 06:00 Absolute Neuts (auto) 6.1 X10*3/uL (2.0-8.3) 02/21/20 06:00 Absolute Nucleated RBC 0.000 X10*3/uL (0.0-0.012) 02/23/20 05:46 Nucleated RBC % (auto) 0.0 /100WBC (0.0-0.2) 02/23/20 05:46 Smear Tech's Comments VERIFIED 02/21/20 06:00 Smear Path Review SEE NOTE 02/20/20 13:50 Hold Purple Top SEE NOTE 02/20/20 13:50 PT 14.6 SEC (10.8-13.0) H 02/20/20 13:50 INR 1.2 (0.9-1.1) H 02/20/20 13:50 Sodium 138 mmol/L (135-145) 02/23/20 05:46 Potassium 4.4 mmol/l (3.3-5.1) 02/23/20 05:46 Chloride 103 mmol/L (96-108) 02/23/20 05:46 Carbon Dioxide 27 mmol/L (22-29) 02/23/20 05:46 Anion Gap 12 (12-20) 02/23/20 05:46 BUN 17 mg/dL (9-16) H 02/23/20 05:46 Creatinine 0.92 mg/dL (0.5-1.4) 02/23/20 05:46 Estim Creat Clear Calc 102.2 02/23/20 05:46 Estimated GFR > 60 02/23/20 05:46 POC Glucose 208 mg/dL (60-115) H 02/25/20 11:15 Random Glucose 190 mg/dL (60-115) H 02/23/20 05:46 Calcium 6.3 mg/dL (8.4-10.2) L 02/23/20 05:46 Magnesium 1.7 mg/dL (1.6-2.6) 02/20/20 13:50 Iron 40 mcg/dL (45-160) L 02/20/20 13:50 TIBC 365 mcg/dL (228-428) 02/20/20 13:50 % Saturation 11 % (15-50) L 02/20/20 13:50 Unsat Iron Binding 325 ug/dL 02/20/20 13:50 Ferritin 23 ng/mL (20-250) 02/20/20 13:50 Total Bilirubin 0.6 mg/dL (0.0-1.0) 02/20/20 13:50 Direct Bilirubin 0.3 mg/dL (0.0-0.5) 02/20/20 13:50 AST 33 U/L (5-37) 02/20/20 13:50 ALT 17 U/L (0-40) 02/20/20 13:50 Alkaline Phosphatase 95 U/L (39-117) 02/20/20 13:50 Troponin I High Sens 4.3 ng/L (<3.5-35.0) 02/20/20 13:50 B-Natriuretic Peptide 111 pg/mL (<100) H 02/20/20 13:50 Total Protein 6.4 g/dL (6.5-8.0) L 02/20/20 13:50 Albumin 3.3 g/dL (3.5-5.0) L 02/20/20 13:50 Vitamin B12 259 pg/mL (200-900) 02/20/20 13:50 Folate 8.1 ng/mL (> or = 4.0) 02/20/20 13:50 Urine Color STRAW 02/20/20 15:47 Urine Appearance CLEAR 02/20/20 15:47 Urine pH 5.5 (5.0-8.0) 02/20/20 15:47 Ur Specific Donovan 1.020 (1.005-1.025) 02/20/20 15:47 Urine Protein NEG MG/DL (NEG-TRACE) 02/20/20 15:47 Urine Glucose (UA) NEG MG/DL (NEG) 02/20/20 15:47 Urine Ketones NEG MG/DL (NEG) 02/20/20 15:47 Urine Blood NEG (NEG) 02/20/20 15:47 Urine Nitrite NEG (NEG) 02/20/20 15:47 Ur Leukocyte Esterase NEG (NEG) 02/20/20 15:47 Stool Occult Blood POS (NEG) 02/20/20 15:47 Coronavirus (PCR) NEGATIVE (Negative) 02/20/20 15:32 COVID-19 ([facility]) Negative (Negative) 02/24/20 14:34 COVID-19 Clin Com See Note 02/24/20 14:34 Influenza Type A (PCR) NEGATIVE (Negative) 02/20/20 15:32 Influenza Type B (PCR) NEGATIVE (Negative) 02/20/20 15:32 RSV RNA Qual (PCR) NEGATIVE (Negative) 02/20/20 15:32 Blood Type O Positive 02/20/20 15:31 Antibody Screen NEGATIVE 02/20/20 15:31 Crossmatch See Detail 02/20/20 15:31 Discharge Plan Discharge Anticipated Discharge Date/Time: 02/25/20 11:52 Patient Disposition: Xfer SNF Referrals: Harjinder Abraham [Outside] Simona Fregoso MD [Primary Care Provider] - Discharge Medications: New sucralfate 1 gram Tablet 1 g PO BEDTIME Qty: 30 RF: 0 omeprazole 40 mg Capsule,Delayed Release(Dr/Ec) 40 mg PO BID@0630,1630 Qty: 60 RF: 0 calcium carbonate [Oyster Shell Calcium 500] 500 mg calcium (1,250 mg) Tablet 500 mg PO TID Qty: 60 RF: 0 ferrous sulfate 324 mg (65 mg iron) Tablet,Delayed Release (Dr/Ec) 324 mg PO BIDWM Qty: 30 RF: 0 Continued latanoprost 0.005 % drops 1 drp ophthalmic (eye) BEDTIME RF: 0 carvedilol 12.5 mg tablet 1 tab PO BID RF: 0 atorvastatin 10 mg tablet 1 tab PO DAILY RF: 0 citalopram 10 mg tablet 1 tab PO DAILY RF: 0 citalopram 20 mg tablet 1 tab PO DAILY RF: 0 metformin 1,000 mg tablet 1 tab PO BID RF: 0 hydroxyzine HCl 25 mg tablet 25 mg PO DAILY RF: 0 furosemide 20 mg tablet 1 tab PO DAILY RF: 0 magnesium oxide 400 mg PO BID RF: 0 Changed Levemir U-100 Insulin 100 unit/mL solution 25 unit subcut BID Qty: 0 RF: 0 Held pentoxifylline 400 mg tablet extended release 1 tab PO BID RF: 0 Hold Instructions: Resume on 03/02/20. if bleeding the stop Discontinued Aspirin For Children 81 mg 81 mg PO DAILY RF: 0 lisinopril 5 mg tablet 1 tab PO DAILY RF: 0 Discharge Orders: Discharge Order (Routine); Ordered 02/25/20 Ordered By: Obi Self Diet: advance to usual diet and diabetic diet Activity on Discharge: As tolerated Visit Report Forms: Patient Portal Discharge page Care Plan Goals: Prevent rehospitalization from GI Bleeding and anemia Health Concerns: Gi bleeding and acute blood loss anemia Plan of Treatment: Hold Asprin, Pletal for at least one week. Take Iron, Protonix and Carafate as directed. Repeat blood count within a week Discharge Date/Time: 02/25/20 14:57
--- NOTE | 2020-02-25 12:23 | MHC.CM.PN ---
Patient will be discharged today at 2pm to return to [facility] via chair van. Patient and nurse are aware.
== END 2020-02-25 14:57 | disposition skilled nursing facility (03) | DRG 381 ==
LOC: HO.ED 16:24 → HO.IMC 18:13
PROVIDERS: Hospitalist; Internal Medicine Gastroenterology; Physician Assistant Medical; Admitting Provider Family Medicine; Emergency Provider Emergency Medicine; PCP Internal Medicine; Visit Provider Internal Medicine
PROC: 0DJ08ZZ Inspection of Upper Intestinal Tract, Via Natural or Artificial Opening Endoscopic (ICD-10-PCS; CPT 43235; principal; 2020-02-22 09:00)
DX: K22.11 Ulcer of esophagus with bleeding (principal); I13.0 Hypertensive heart and chronic kidney disease with heart failure and stage 1 through stage 4 chronic kidney disease, or unspecified chronic kidney disease; D62 Acute posthemorrhagic anemia; D69.3 Immune thrombocytopenic purpura; K22.6 Gastro-esophageal laceration-hemorrhage syndrome; K21.9 Gastro-esophageal reflux disease without esophagitis; E11.22 Type 2 diabetes mellitus with diabetic chronic kidney disease; E83.51 Hypocalcemia; N18.30 Chronic kidney disease, stage 3 unspecified; E03.9 Hypothyroidism, unspecified; M10.9 Gout, unspecified; F32.9 Major depressive disorder, single episode, unspecified; Z20.828 Contact with and (suspected) exposure to other viral communicable diseases; Z79.84 Long term (current) use of oral hypoglycemic drugs; Z79.899 Other long term (current) drug therapy; Z66 Do not resuscitate
CPT/HCPCS: 0241U; 36415; 36430; 70450; 71046; 73564; 74177; 80048; 80076; 81003; 82272; 82310; 82607; 82728; 82746; 82947; 83540; 83735; 83880; 84484; 85014; 85018; 85025; 85027; 85610; 86850; 86900; 86901; 86920; 86923; 87635; 93005; 94640; 96360; 99285; 99291; 99292; J0171; J0330; J0610; J1100; J2405; P9016; Q9967

== ENCOUNTER 2020-03-18 09:54 | Outpatient (REF) | payer MEDICARE, MEDICAID, SELFPAY | END 2020-03-18 09:55 | disposition home or self-care (01) | LOC: HO.HAP 09:54 | PROVIDERS: Visit Provider Internal Medicine | DX: Z46.1 Encounter for fitting and adjustment of hearing aid (principal) | CPT/HCPCS: V5266 ==

== ENCOUNTER 2020-08-09 13:15 | Outpatient (REF) | payer MEDICARE, MEDICAID, SELFPAY ==
--- NOTE | ~2020-08-09 | MR_ITS ---
EXAMINATION: MR CERVICAL SPINE WITHOUT CONTRAST CLINICAL INFORMATION: Osteoarthritis. COMPARISON: There are no prior studies for comparison. TECHNIQUE: MRI of the cervical spine was obtained using routine sequences without contrast. The patient was unable to relax his head posteriorly, and the cervical spinal cord was not used. As a result, there was poor signal from the mid and upper cervical spine, with areas of artifact. FINDINGS: VERTEBRAL BODIES AND PARASPINAL SOFT TISSUES: There is a levoscoliosis. There is hyperlordosis in the cervical spine. There is a mild degenerative anterolisthesis of C5 on C6. There is multilevel narrowing of intervertebral disc height in the upper thoracic and in the mid and lower cervical spine. There is invagination of discs into the adjacent endplates at multiple levels, most prominent at C3-C4 and C7-T1. There are mild degenerative endplate contour changes. Fatty endplate signal changes are seen anteriorly at C6-C7. Vertebral body heights are maintained and no fractures are demonstrated. Overall, marrow signal is slightly heterogenous. The visualized paravertebral structures are unremarkable. CERVICOMEDULLARY JUNCTION AND VISUALIZED POSTERIOR FOSSA: Grossly, the craniocervical junction appears unremarkable. There is a small focus of increased signal within the spinal cord at the level of C3-C4, consistent with a small area of myelomalacia. SPINAL LEVELS: C2-C3: There is moderate right and mild left facet arthropathy. There is no spinal cord compression or central stenosis. There are uncovertebral osteophytes. There is severe bilateral foraminal narrowing. C3-C4: There is severe right and moderate left facet arthropathy. Is a broad-based posterior disc protrusion which is more prominent on the left. There is mass effect on the left aspect of the spinal cord. There is moderate to severe central stenosis. There is severe bilateral foraminal narrowing. C4-C5: There is moderate right and mild left facet arthropathy. There is a broad-based posterior disc protrusion with distortion of the ventral thecal sac and mild flattening of the cord. There is moderate to severe central stenosis. There is severe bilateral foraminal narrowing. C5-C6: There is severe bilateral facet arthropathy. There is a posterior disc protrusion which effaces CSF ventral to the spinal cord without spinal cord compression. There is moderate central stenosis. There are uncovertebral osteophytes and severe right and moderate left foraminal narrowing. C6-C7: There is moderate bilateral facet arthropathy. There is a shallow posterior disc protrusion. There is no spinal cord compression or central stenosis. There are uncovertebral osteophytes. There is moderate right and mild left foraminal narrowing. C7-T1: There is mild bilateral facet arthropathy. Posterior disc contour is normal. There are uncovertebral osteophytes and there is mild bilateral foraminal narrowing. MR/MR cervical spine wo con IMPRESSION: 1. There is facet arthropathy and a posterior disc protrusions which which contributes to moderate to severe central stenosis the levels of C3-C4 and C4-C5. There is severe bilateral foraminal narrowing at both these levels. There is a focus of increased signal in the cord at C3-C4, consistent with an area of myelomalacia. 2. Spondylitic and facet arthropathic changes are also demonstrated at multiple other levels as described above. 3. Imaging is slightly suboptimal due to technical factors as described above.
--- NOTE | ~2020-08-09 | XR_ITS ---
EXAMINATION: CHEST, SKULL, ABDOMEN, PELVIS. CLINICAL INFORMATION: Pre-MRI screening for foreign body. COMPARISON: None TECHNIQUE: Chest one view. Skeletal 2 views. Abdomen and pelvis one view. FINDINGS: Chest: Lungs are fairly well-expanded and clear. The heart size is enlarged. Pulmonary vasculature is normal. No gross bony the body seen. No radiopaque foreign body visualized. Skull: AP and lateral views of the skull reveal no visible radiopaque foreign bodies in the the maxillofacial orbital soft tissues. The paranasal sinuses are well aerated. Abdomen and pelvis: There is a 7 mm radiopaque calculi mid pole calyx right kidney. No additional radiopaque calculi seen. Bowel gas pattern is nonspecific. No radiopaque metallic foreign body seen. Is mild spondylosis throughout the lower dorsal and lumbar spine. XR/XR pre mri screening IMPRESSION: Unremarkable chest exam except for mild cardiomegaly. Unremarkable AP and lateral skull view exam. Mild spondylosis lower dorsal and lumbar spine. 7 mm radiopaque calculi mid pole right kidney. There is no radiopaque metallic foreign body seen in the chest, maxillofacial/orbits and the abdomen.
== END 2020-08-09 13:16 | disposition home or self-care (01) ==
LOC: HO.MRI 13:15
PROVIDERS: PCP Internal Medicine; Visit Provider Internal Medicine
DX: M81.0 Age-related osteoporosis without current pathological fracture (principal)
CPT/HCPCS: 72141

== ENCOUNTER 2020-10-28 08:22 | Outpatient (REF) | payer MEDICARE, MEDICAID, SELFPAY ==
--- NOTE | 2020-10-28 08:36 | MHC.AU.P13 ---
Hearing Instrument Maintenance Date of Visit: 10/28/20 Right Ear: Cloth Shearer: Phonak Model: XOCHILT V50-SP BTE Serial Number: [id number] Repair Warranty: Loss and Damage Warranty: Battery Size: 13 Color: SILVER Tubing: TUBE LOCK Type of Mold: CANAL LOCK Dispensed By: [facility] Date of Fittin12/12/2016 Left Ear: Cloth Shearer: Phonak Model: XOCHILT V50-SP BTE Serial Number: [id number] Repair Warranty: Loss and Damage Warranty: Battery Size: 13 Color: SILVER Tubing: TUBE LOCK Type of Mold: CANAL LOCK Dispensed By: [facility] Date of Fittin12/12/2016 Follow-Up Summary: [facility] staff member came for patient's batteries - brought aids for cleaning. Both aids cleaned and tubings changed - both amplifying clearly. Recommendations: Recommendations: Hearing instrument follow-up or maintenance as needed. Diagnosis Code(s): Primary Diagnosis: H90.6 Mixed Hearing Loss, Bilateral Signature: Provider: DANIELLE Chaney-
== END 2020-10-28 08:23 | disposition home or self-care (01) ==
LOC: HO.HAP 08:22
PROVIDERS: Visit Provider Internal Medicine
DX: Z46.1 Encounter for fitting and adjustment of hearing aid (principal); H90.3 Sensorineural hearing loss, bilateral
CPT/HCPCS: V5266

== ENCOUNTER 2020-12-09 14:15 | Outpatient (REF) | payer MEDICARE, MEDICAID, SELFPAY | END 2020-12-09 14:16 | disposition home or self-care (01) | LOC: HO.HAP 14:15 | PROVIDERS: Visit Provider Internal Medicine | DX: Z46.1 Encounter for fitting and adjustment of hearing aid (principal); H90.6 Mixed conductive and sensorineural hearing loss, bilateral | CPT/HCPCS: 92593 ==

== ENCOUNTER 2021-02-24 11:03 | Outpatient (REF) | payer MEDICARE, MEDICAID, SELFPAY | END 2021-02-24 11:04 | disposition home or self-care (01) | LOC: HO.HAP 11:03 | PROVIDERS: Visit Provider Hospitalist | DX: Z46.1 Encounter for fitting and adjustment of hearing aid (principal); H90.6 Mixed conductive and sensorineural hearing loss, bilateral | CPT/HCPCS: V5266 ==

== ENCOUNTER 2021-03-29 08:21 | Outpatient (REF) | payer MEDICARE, MEDICAID, SELFPAY ==
--- NOTE | 2021-03-29 09:03 | MHC.AU.HFU ---
Hearing Instrument Follow-Up- Binaural Date of Visit: 03/29/21 Right Ear: Appliance Repair Technician: Phonak Model: RADHA V50-SP BTE Serial Number: [id number] Repair Warranty: Battery Size: 13 Color: SILVER Tubing: TUBE LOCK Type of Mold: CANAL LOCK Dispensed By: [facility] Date of Fittin12/12/2016 Left Ear: Appliance Repair Technician: Phonak Model: RADHA V50-SP BTE Serial Number: [id number] Repair Warranty: Battery Size: 13 Color: SILVER Tubing: TUBE LOCK Type of Mold: CANAL LOCK Dispensed By: [facility] Date of Fittin12/12/2016 Follow-Up Summary: Hearing Aid Problem - Patient brings binaural Radha aids ( Left aid constant whistling and Right aid tubing too long and both earhooks spinning) and old left Phonak [place] SP not working at all. Deneen aid tubing blocked completely with cerumen, cleaned and changed tubing, aid now amplifying well. Changed tubing, earhooks, cleaned microphones and contacts with much improved sound quality for both aids. Otoscopy shows completely occluding cerumen bilaterally. Patient says he only wears the left aid. Needed to block the vent to reduce feedback until ears are cleaned by physician. Dispensed 42 batteries. Recommendations: Hearing instrument follow-up or maintenance as needed. Please contact our clinic with any questions or concerns. Recommendations (Other): Cerumen removal by physician as soon as possible. Diagnosis Code(s): Primary Diagnosis: H90.6 Mixed Hearing Loss, Bilateral Secondary Diagnosis: H61.23 Impacted Cerumen, Bilateral Services Performed: Number of Individual Battery Cells: 42 AGUAYO Non-Quantity Charges: HACHECKB (MH>1 yr or new to us) Face to face appointment SignatureProvider: Joyce Cadet, Tasha, CCC-A
== END 2021-03-29 08:22 | disposition home or self-care (01) ==
LOC: HO.HAP 08:21
PROVIDERS: Visit Provider Hospitalist
DX: Z46.1 Encounter for fitting and adjustment of hearing aid (principal); H90.6 Mixed conductive and sensorineural hearing loss, bilateral; H61.23 Impacted cerumen, bilateral
CPT/HCPCS: 92593; V5266

== ENCOUNTER 2021-04-29 09:55 | Outpatient (REF) | payer MEDICARE, MEDICAID, SELFPAY | END 2021-04-29 09:56 | disposition home or self-care (01) | LOC: HO.HAP 09:55 | PROVIDERS: Visit Provider Hospitalist | DX: Z46.1 Encounter for fitting and adjustment of hearing aid (principal); H90.6 Mixed conductive and sensorineural hearing loss, bilateral | CPT/HCPCS: 92592; V5266 ==

== ENCOUNTER 2021-04-30 10:35 | Emergency (ER) | payer MEDICARE, MEDICAID, SELFPAY ==
--- NOTE | ~2021-04-30 | CT_ITS ---
EXAMINATION: CT ABDOMEN AND PELVIS WITH CONTRAST CLINICAL INFORMATION: Abdominal pain and vomiting. COMPARISON: CT on 121 TECHNIQUE: Multidetector volumetric images were obtained from the superior aspect of the liver through the pubic symphysis following administration 85 mL of Omnipaque 350 intravenous contrast. Sagittal and coronal reformatted images were obtained on the technologist's workstation. Oral contrast: No This CT examination was performed using dose optimization techniques as appropriate, variously including the following: *Automated exposure control *Adjustment of mA and/or kV according to patient size (this includes techniques or standardized protocols for targeted exams where dose is matched to indication/reason for exam; i.e. extremities or head) *Use of iterative reconstruction technique DLP: 1014 mGy-cm FINDINGS: LUNG BASES: Minimal atelectatic changes seen in both lung bases. Heart size is normal with coronary artery calcifications. LIVER, GALLBLADDER, AND BILIARY TREE: The liver is normal in size, nodular contour, and normal attenuation. No focal hepatic lesion or biliary ductal dilatation is present. The gallbladder is unremarkable with no evidence of radiopaque gallstones, gallbladder wall thickening, or obvious pericholecystic inflammatory changes. PANCREAS: Unremarkable. SPLEEN: The spleen is enlarged measuring 16 cm and maximum length. It has homogeneous density. ADRENAL GLANDS: Unremarkable. KIDNEYS AND URETERS: The kidneys are normal in size, shape, and attenuation. There is a 9 mm nonobstructive radiopaque calculi lower pole right kidney. There is a complex Bosniak type II 3.8 cm cyst upper pole left kidney. There is a smaller 2.1 cm simple cyst in the lower pole left kidney BLADDER: The bladder is nondistended however there is mild bladder wall thickening. GASTROINTESTINAL TRACT: There is colonic diverticulosis with mild air-fluid levels throughout the colon but no distention seen. The small bowel loops and the stomach appears unremarkable. Appendix is not visualized. ABDOMINAL WALL: There is small umbilical hernia containing fat. LYMPH NODES: Normal. VASCULAR: There is arthroscopic calcification of the abdominal aorta and common iliac arteries with mild ectasia of the left iliac artery measuring 2.5 cm in diameter. PELVIC VISCERA: No free air or free fluid. No abnormal size inguinal lymph nodes seen prominent left inguinal canal containing fat is noted. OSSEOUS STRUCTURES: No aggressive lytic or sclerotic process seen. CT/CT abdomen pelvis w con IMPRESSION: Nonobstructive radiopaque calculi lower pole right kidney and complex Bosniak type II cyst upper pole and a simple cyst lower pole left kidney. Colonic diverticulosis with mild air-fluid levels seen throughout the colon but no distention, nonspecific. The small bowel loops and the stomach is unremarkable. Nondistended with mild bladder wall thickening. Slightly nodular liver with mild splenomegaly. No major change from 02/20/2020 CT abdomen pelvis exam. Fleischner guidelines were followed.
--- NOTE | ~2021-04-30 | US_ITS ---
EXAMINATION: US ABDOMEN LIMITED, PORTABLE CLINICAL INFORMATION: Vomiting and evaluate gallbladder.. COMPARISON: None TECHNIQUE: Real-time imaging of the right upper quadrant abdominal viscera. FINDINGS: PANCREAS: Normal. LIVER: The liver is normal in size. The liver contour is normal. Parenchymal echogenicity is increased. No focal hepatic lesion. There is no intrahepatic biliary duct dilatation seen. GALLBLADDER: There is trace amount of fluid surrounding the gallbladder. The gallbladder is physiologically distended without evidence of stones, sludge, polyps or wall thickening. COMMON BILE DUCT: CBD measures 0.24 cm RIGHT KIDNEY: No hydronephrosis. No renal calculi or focal parenchymal lesions. The kidney measures 11.3 cm in maximum dimension. Stone seen in the right kidney is not visualized on ultrasound. FREE FLUID: None. US/US abdomen limited IMPRESSION: Mild hepatic steatosis without focal lesion. Trace amount of fluid surrounding the gallbladder but no echogenic gallstone or wall thickening. Stones in the lower pole right kidney on CT is not visualized by ultrasound.
[2021-04-30 10:49] VITALS: BP 112/64; BP 120/78; PULSE 83; PULSE 96; RESP 16; TEMP 36.7; O2SAT 95; O2SAT 96; BMI 31.1
--- NOTE | 2021-04-30 11:12 | ECG_ITS ---
Test Reason : UPPER AP Blood Pressure : / mmHG Vent. Rate : 082 BPM Atrial Rate : 082 BPM P-R Int : 208 ms QRS Dur : 120 ms QT Int : 424 ms P-R-T Axes : -25 036 084 degrees QTc Int : 495 ms Normal sinus rhythm Non-specific intra-ventricular conduction delay Nonspecific ST and T wave abnormality Abnormal ECG When compared with ECG of 20-FEB-2020 13:29, No significant change was found Referred By: Aletha Quintero Electronically Signed By:ELVIN NORTON MD
--- NOTE | 2021-04-30 11:15 | ED.NAVMDI ---
HPI - Nausea/Vomiting/Diarrhea General Chief complaint: Nausea/Vomiting/Diarrhea Stated complaint: VOMITING/DIARRHEA,RECENT DX PNA FROM SNF Time Seen by Provider: 04/30/21 11:05 Source: patient and EMS Mode of arrival: EMS Limitations: no limitations History of Present Illness HPI Narrative: 65-year-old male coming from [facility] with a past medical history of atrial fibrillation, BPH, congestive heart failure, COPD, insulin depedent diabetes, GERD, hypothyroidism, depression, osteoarthritis,, high cholesterol, gout, h/o upper GIB here with complaints of upper abdominal pain and vomiting since 08:00 this morning. Patient tells me he had a normal bowel movement this morning. He denies any fevers, chills, hematemesis. Patient currently being treated for right lower lobe pneumonia. He started Levaquin yesterday. Associated nausea: Yes Related Data Home Medications Medication Instructions Recorded Confirmed atorvastatin 10 mg tablet 1 tab PO DAILY 02/21/20 02/21/20 carvedilol 12.5 mg tablet 1 tab PO BID 02/21/20 02/21/20 citalopram 10 mg tablet 1 tab PO DAILY 02/21/20 02/21/20 citalopram 20 mg tablet 1 tab PO DAILY 02/21/20 02/21/20 furosemide 20 mg tablet 1 tab PO DAILY 02/21/20 02/21/20 hydroxyzine HCl 25 mg tablet 25 mg PO DAILY 02/21/20 02/21/20 latanoprost 0.005 % eye drops 1 drp OPHTHALMIC (EYE) BEDTIME 02/21/20 02/21/20 magnesium oxide 400 mg PO BID 02/21/20 02/21/20 metformin 1,000 mg tablet 1 tab PO BID 02/21/20 02/21/20 pentoxifylline 400 mg 1 tab PO BID 02/21/20 02/21/20 tablet,extended release Previous Rx's Medication Instructions Recorded calcium carbonate 500 mg calcium 500 mg PO TID #60 tab 02/25/20 (1,250 mg) tablet (Oyster Shell Calcium 500) ferrous sulfate 324 mg (65 mg 324 mg PO BIDWM #30 tab 02/25/20 iron) tablet,delayed release insulin detemir U-100 100 unit/mL 25 unit (0.25 mL) SUBCUT BID #0 ml 02/25/20 subcutaneous solution (Levemir U-100 Insulin) omeprazole 40 mg capsule,delayed 40 mg PO BID@0630,1630 #60 cap 02/25/20 release sucralfate 1 gram tablet 1 g PO BEDTIME #30 tab 02/25/20 Allergies Allergy/AdvReac Type Severity Reaction Status Date / Time colchicine Allergy Unknown diarrhea Verified 02/20/20 12:43 Review of Systems Review of Systems: Yes all other systems are reviewed and are negative Constitutional: Constitutional: Reports no additional constitutional complaints, Denies body ache(s), Denies chills, Denies fever(s), Denies headache(s) and Denies weakness Eyes: Eyes: Reports no additional eye complaints and Denies change in vision ENT: Reports system reviewed and no additional complaints, except as documented, Denies dizziness, Denies headache(s), Denies nasal congestion, Denies nasal discharge and Denies neck pain Cardiovascular: Cardiovascular: Reports no additional cardiovascular complaints, Denies chest pain, Denies leg edema and Denies dyspnea Respiratory: Respiratory: Reports no additional respiratory complaints, Denies cough and Denies dyspnea Gastrointestinal: Gastrointestinal: Reports no additional gastrointestinal complaints, Reports abdominal pain, Denies diarrhea, Reports nausea and Reports vomiting Genitourinary: Genitourinary: Denies urinary incontinence Musculoskeletal: Musculoskeletal: Reports no additional musculoskeletal complaints, Denies back pain, Denies arthralgias, Denies joint swelling, Denies neck pain, Denies numbness and Denies tingling Integumentary/Breasts: Skin/Breast: Reports system reviewed and no additional complaints, except as docu and Denies rash Neurologic: Reports system reviewed and no additional complaints, except as documented, Denies Abnormal speech present, Denies dizziness, Denies headache(s), Denies numbness, Denies tingling and Denies weakness [facility] Past Medical History Attestation statement: The following information was validated with the patient. 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 Strain of left knee Thrombocytopenia Family History Family History Maternal Grandmother Diabetes Mother Diabetes Social History Social History Household Members: Other Housing: [facility] Alcohol intake: former Patient Tobacco Use Status: Former Tobacco user Use of substances other than those prescribed or required for medical reasons: No Advance Directives: No Advance Directives Information Provided: No Advance Directives Date on File: 02/20/20 service: No Current occupational status: retired Physical Exam Vital Signs: Vital Signs: Last Vital Signs Temp 98.0 F 04/30/21 16:00 Pulse 89 04/30/21 16:00 Resp 16 04/30/21 16:00 BP 132/61 04/30/21 16:00 Pulse Ox 98 04/30/21 16:00 BMI result Body Mass Index 31.1 Const: General: cooperative, healthy appearing, comfortable and no acute distress Orientation/consciousness: patient oriented x3 Limitations: no limitations HENMT: Other: Tacky MM Head: Yes normal to inspection Ears: hearing grossly normal bilaterally General nose exam: Normal external nose present Face and sinus: Yes normal facial exam Mouth: Normal oral and palatal mucosa present Throat: Yes posterior oropharynx normal Eyes: General: appearance normal, both eyes and all related structures Pupils: Equal, round and reactive pupils present Neck: Neck: Yes normal visual inspection Chest: Chest palpation & inspection: normal inspection of the chest Resp: Effort & Inspection: normal respiratory effort Auscultation: clear to auscultation bilaterally Cardio: Rate: regular rate Rhythm: regular rhythm Peripheral pulses: Peripheral pulses 2+ throughout GI: Inspection: Yes normal to inspection Palpation (GI): Soft to palpation and Tenderness to palpation present (GI) (tender epigastric/upper abdomen bilaterally ) Auscultation: normal bowel sounds Back/Spine/Pelvis: Thoracic/Lumbar Spine: thoracic and lumbar spine normal to inspection Skin: General skin exam: no rashes or lesions noted Neuro: General: patient oriented x3, no focal motor deficits and normal sensation to monofilament Cranial nerves: Yes Equal, round and reactive pupils present Cognition (Neuro): normal cognition Speech: No Abnormal speech present Gait exam (Neuro): Normal gait present Motor exam (neuro): 5/5 motor strength present throughout Extrem: Other: To the left lower extremity there is circumferential redness extending from the ankle to the mid lower leg with some warmth. General: Yes normal to inspection and Yes no calf tenderness Course Course Course Narrative: 65 yo male coming [facility] with reports of upper abdominal pain and vomiting since 08:00 this morning. No reports of hematemesis, black or bloody stools. On exam upper abdomen tender to palp with no rebound or guarding. Will check labs, UA, COVID screen, EKG, CT A/P. 1115- patient has a known right lower lobe pneumonia currently on Levaquin. He on exam clinically he has left lower extremity cellulitis. We will rule out intra-abdominal pathology. At this time he has 2 sources of infection. Infection is suspected. Antibiotics ordered. 1400-CT A/P IMPRESSION: Nonobstructive radiopaque calculi lower pole right kidney and complex Bosniak type II cyst upper pole and a simple cyst lower pole left kidney. ? Colonic diverticulosis with mild air-fluid levels seen throughout the colon but no distention, nonspecific. The small bowel loops and the stomach is unremarkable. ? Nondistended with mild bladder wall thickening. ? Slightly nodular liver with mild splenomegly -Labs at baseline for patient. Will attempt PO trial. 1445-Patient tolerated some sips of bong mary but was not interested in eating any crackers or food. Still c/o upper AP. No vomiting here. Patient tells me he only dry heaved this morning but had no vomiting. We spoke to nursing staff at [facility] who tells out nursing staff it was green emesis. Will give PPI, check abdominal US. Anticipate discharge if negative. Less likely GIB with no reports of black or bloody stools. Patient had normal brown BM while being here. Stable H/H. Will give PPI, check abdominal US 1630- ultrasound shows trace amount of fluid around the gallbladder but no gallstones, no wall thickening, no sludge or polyps. UA is consistent with UTI. Patient did start Levaquin yesterday for a no pneumonia. This will treat his UTI as well as his left lower extremity cellulitis. Plan for discharge back to [facility] MDM - Nausea/Vomiting/Diarrhea MDM Narrative Medical decision making narrative: Upper GIB, SBO, viral syndrome Medical Records Attestation: I reviewed the patient's medical records. Lab Data Attestation: I reviewed the patient's lab results. Result diagrams: 04/30/21 11:32 04/30/21 11:32 Labs: Lab Results 04/30/21 04/30/21 04/30/21 Range/Units 11:32 11:32 11:46 WBC 9.6 (4.8-10.8) X10*3/uL RBC 3.40 L (4.60-5.80) X10*6/uL Hgb 10.0 L (14.0-18.0) g/dl Hct 31.3 L (42.0-52.0) % MCV 92.1 (80.0-98.0) fL MCH 29.4 (27.0-33.0) pg MCHC 31.9 (31.0-36.0) g/dl RDW 17.0 H (11.0-16.0) % Plt Count 51 L (160-400) X10*3/uL MPV Not Reportable Immature Gran % (Auto) 0.8 H (0.0-0.4) % Neut % (Auto) 88.2 H (45-73) % Lymph % (Auto) 2.7 L (20-40) % Moffat % (Auto) 8.0 (2-11) % Eos % (Auto) 0.1 (0-4) % Baso % (Auto) 0.2 (0-2) % Lymph # (Auto) 0.3 L (1.2-4.9) X10*3/uL Moffat # (Auto) 0.8 (0.1-1.2) X10*3/uL Eos # (Auto) 0.0 (0.0-0.4) X10*3/uL Baso # (Auto) 0.0 (0.0-0.2) X10*3/uL Abs Immat Gran (auto) 0.08 H (0.00-0.03) X10*3/uL Absolute Neuts (auto) 8.5 H (2.0-8.3) x10*3/uL Absolute Nucleated RBC 0.000 (0.0-0.012) X10*3/uL Nucleated RBC % (auto) 0.0 (0.0-0.2) /100WBC PT 17.3 H (9.9-13.0) SEC INR 1.5 H (0.9-1.1) Sodium 135 (135-145) mmol/L Potassium 3.4 (3.3-5.1) mmol/L Chloride 101 (96-108) mmol/L Carbon Dioxide 23 (22-29) mmol/L Anion Gap 14 (12-20) BUN 26 H (9-16) mg/dL Creatinine 1.14 (0.5-1.4) mg/dL Estim Creat Clear Calc 78.5 Estimated GFR > 60 Random Glucose 278 H D (60-115) mg/dL Lactic Acid (0.5-2.0) mmol/L Calcium 7.3 L D (8.4-10.2) mg/dL Magnesium 1.8 (1.6-2.6) mg/dL Total Bilirubin 2.2 H (0.0-1.0) mg/dL Direct Bilirubin 1.1 H (0.0-0.5) mg/dL AST 28 (5-37) U/L ALT 17 (0-40) U/L Alkaline Phosphatase 77 (39-117) U/L Troponin I High Sens (<3.5-35.0) ng/L Total Protein 6.5 (6.5-8.0) g/dL Albumin 3.2 L (3.5-5.0) g/dL Lipase 35 (8-78) U/L Urine Color Urine Appearance Urine pH (5.0-8.0) Ur Specific [place] (1.005-1.025) Urine Protein (NEG-TRACE) MG/DL Urine Glucose (UA) (NEG) MG/DL Urine Ketones (NEG) MG/DL Urine Blood (NEG) Urine Nitrite (NEG) Ur Leukocyte Esterase (NEG) Urine RBC (0) /HPF Urine WBC (0-4) /HPF Ur Squamous Epith Cells /LPF Urine Bacteria /LPF Urine Mucus /LPF COVID-19 (ARTURO) (Negative) COVID-19 Clin Com Influenza Type A (LY) (Negative) Influenza Type B (LY) (Negative) Influenza A & B Note 04/30/21 04/30/21 04/30/21 Range/Units 11:46 11:46 11:47 WBC (4.8-10.8) X10*3/uL RBC (4.60-5.80) X10*6/uL Hgb (14.0-18.0) g/dl Hct (42.0-52.0) % MCV (80.0-98.0) fL MCH (27.0-33.0) pg MCHC (31.0-36.0) g/dl RDW (11.0-16.0) % Plt Count (160-400) X10*3/uL MPV Immature Gran % (Auto) (0.0-0.4) % Neut % (Auto) (45-73) % Lymph % (Auto) (20-40) % Moffat % (Auto) (2-11) % Eos % (Auto) (0-4) % Baso % (Auto) (0-2) % Lymph # (Auto) (1.2-4.9) X10*3/uL Moffat # (Auto) (0.1-1.2) X10*3/uL Eos # (Auto) (0.0-0.4) X10*3/uL Baso # (Auto) (0.0-0.2) X10*3/uL Abs Immat Gran (auto) (0.00-0.03) X10*3/uL Absolute Neuts (auto) (2.0-8.3) x10*3/uL Absolute Nucleated RBC (0.0-0.012) X10*3/uL Nucleated RBC % (auto) (0.0-0.2) /100WBC PT (9.9-13.0) SEC INR (0.9-1.1) Sodium (135-145) mmol/L Potassium (3.3-5.1) mmol/L Chloride (96-108) mmol/L Carbon Dioxide (22-29) mmol/L Anion Gap (12-20) BUN (9-16) mg/dL Creatinine (0.5-1.4) mg/dL Estim Creat Clear Calc Estimated GFR Random Glucose (60-115) mg/dL Lactic Acid 2.0 (0.5-2.0) mmol/L Calcium (8.4-10.2) mg/dL Magnesium (1.6-2.6) mg/dL Total Bilirubin (0.0-1.0) mg/dL Direct Bilirubin (0.0-0.5) mg/dL AST (5-37) U/L ALT (0-40) U/L Alkaline Phosphatase (39-117) U/L Troponin I High Sens 6.9 (<3.5-35.0) ng/L Total Protein (6.5-8.0) g/dL Albumin (3.5-5.0) g/dL Lipase (8-78) U/L Urine Color Urine Appearance Urine pH (5.0-8.0) Ur Specific [place] (1.005-1.025) Urine Protein (NEG-TRACE) MG/DL Urine Glucose (UA) (NEG) MG/DL Urine Ketones (NEG) MG/DL Urine Blood (NEG) Urine Nitrite (NEG) Ur Leukocyte Esterase (NEG) Urine RBC (0) /HPF Urine WBC (0-4) /HPF Ur Squamous Epith Cells /LPF Urine Bacteria /LPF Urine Mucus /LPF COVID-19 (ARTURO) (Negative) COVID-19 Clin Com Influenza Type A (LY) Negative (Negative) Influenza Type B (LY) Negative (Negative) Influenza A & B Note See Note 04/30/21 04/30/21 Range/Units 11:47 14:38 WBC (4.8-10.8) X10*3/uL RBC (4.60-5.80) X10*6/uL Hgb (14.0-18.0) g/dl Hct (42.0-52.0) % MCV (80.0-98.0) fL MCH (27.0-33.0) pg MCHC (31.0-36.0) g/dl RDW (11.0-16.0) % Plt Count (160-400) X10*3/uL MPV Immature Gran % (Auto) (0.0-0.4) % Neut % (Auto) (45-73) % Lymph % (Auto) (20-40) % Moffat % (Auto) (2-11) % Eos % (Auto) (0-4) % Baso % (Auto) (0-2) % Lymph # (Auto) (1.2-4.9) X10*3/uL Moffat # (Auto) (0.1-1.2) X10*3/uL Eos # (Auto) (0.0-0.4) X10*3/uL Baso # (Auto) (0.0-0.2) X10*3/uL Abs Immat Gran (auto) (0.00-0.03) X10*3/uL Absolute Neuts (auto) (2.0-8.3) x10*3/uL Absolute Nucleated RBC (0.0-0.012) X10*3/uL Nucleated RBC % (auto) (0.0-0.2) /100WBC PT (9.9-13.0) SEC INR (0.9-1.1) Sodium (135-145) mmol/L Potassium (3.3-5.1) mmol/L Chloride (96-108) mmol/L Carbon Dioxide (22-29) mmol/L Anion Gap (12-20) BUN (9-16) mg/dL Creatinine (0.5-1.4) mg/dL Estim Creat Clear Calc Estimated GFR Random Glucose (60-115) mg/dL Lactic Acid (0.5-2.0) mmol/L Calcium (8.4-10.2) mg/dL Magnesium (1.6-2.6) mg/dL Total Bilirubin (0.0-1.0) mg/dL Direct Bilirubin (0.0-0.5) mg/dL AST (5-37) U/L ALT (0-40) U/L Alkaline Phosphatase (39-117) U/L Troponin I High Sens (<3.5-35.0) ng/L Total Protein (6.5-8.0) g/dL Albumin (3.5-5.0) g/dL Lipase (8-78) U/L Urine Color YELLOW Urine Appearance CLOUDY Urine pH 5.5 (5.0-8.0) Ur Specific [place] 1.015 (1.005-1.025) Urine Protein 1+ H (NEG-TRACE) MG/DL Urine Glucose (UA) NEG (NEG) MG/DL Urine Ketones NEG (NEG) MG/DL Urine Blood TRACE (NEG) Urine Nitrite NEG (NEG) Ur Leukocyte Esterase 1+ H (NEG) Urine RBC 0-2 (0) /HPF Urine WBC 30-49 H (0-4) /HPF Ur Squamous Epith Cells 1+ /LPF Urine Bacteria TRACE /LPF Urine Mucus TRACE /LPF COVID-19 (ARTURO) Negative (Negative) COVID-19 Clin Com See Note Influenza Type A (LY) (Negative) Influenza Type B (LY) (Negative) Influenza A & B Note Imaging Data CT scan - abdomen: Attestation: I personally reviewed and interpreted this imaging study as follows: Radiologist's impression: FINDINGS: LUNG BASES: Minimal atelectatic changes seen in both lung bases. Heart size is normal with coronary artery calcifications. LIVER, GALLBLADDER, AND BILIARY TREE: The liver is normal in size, nodular contour, and normal attenuation. No focal hepatic lesion or biliary ductal dilatation is present. The gallbladder is unremarkable with no evidence of radiopaque gallstones, gallbladder wall thickening, or obvious pericholecystic inflammatory changes.? PANCREAS: Unremarkable.? SPLEEN: The spleen is enlarged measuring 16 cm and maximum length. It has homogeneous density.? ADRENAL GLANDS: Unremarkable.? KIDNEYS AND URETERS: The kidneys are normal in size, shape, and attenuation. There is a 9 mm nonobstructive radiopaque calculi lower pole right kidney. There is a complex Bosniak type II 3.8 cm cyst upper pole left kidney. There is a smaller 2.1 cm simple cyst in the lower pole left kidney BLADDER: The bladder is nondistended however there is mild bladder wall thickening.? GASTROINTESTINAL TRACT: There is colonic diverticulosis with mild air-fluid levels throughout the colon but no distention seen. The small bowel loops and the stomach appears unremarkable. Appendix is not visualized.? ABDOMINAL WALL: There is small umbilical hernia containing fat.? LYMPH NODES: Normal. VASCULAR: There is arthroscopic calcification of the abdominal aorta and common iliac arteries with mild ectasia of the left iliac artery measuring 2.5 cm in diameter. PELVIC VISCERA: No free air or free fluid. No abnormal size inguinal lymph nodes seen prominent left inguinal canal containing fat is noted. ? OSSEOUS STRUCTURES: No aggressive lytic or sclerotic process seen.? CT/CT abdomen pelvis w con IMPRESSION: Nonobstructive radiopaque calculi lower pole right kidney and complex Bosniak type II cyst upper pole and a simple cyst lower pole left kidney. ? Colonic diverticulosis with mild air-fluid levels seen throughout the colon but no distention, nonspecific. The small bowel loops and the stomach is unremarkable. ? Nondistended with mild bladder wall thickening. ? Slightly nodular liver with mild splenomegaly. ? No major change from 02/20/2020 CT abdomen pelvis exam. Fleischner guidelines were followed. US - abdomen: Attestation: I personally reviewed and interpreted this imaging study as follows: Radiologist's impression: FINDINGS: PANCREAS: Normal. LIVER: The liver is normal in size. The liver contour is normal. Parenchymal echogenicity is increased. No focal hepatic lesion. There is no intrahepatic biliary duct dilatation seen. GALLBLADDER: There is trace amount of fluid surrounding the gallbladder. The gallbladder is physiologically distended without evidence of stones, sludge, polyps or wall thickening. COMMON BILE DUCT: CBD measures 0.24 cm RIGHT KIDNEY: No hydronephrosis. No renal calculi or focal parenchymal lesions. The kidney measures 11.3 cm in maximum dimension. Stone seen in the right kidney is not visualized on ultrasound. FREE FLUID: None. US/US abdomen limited IMPRESSION: Mild hepatic steatosis without focal lesion. ? Trace amount of fluid surrounding the gallbladder but no echogenic gallstone or wall thickening. ? Stones in the lower pole right kidney on CT is not visualized by ultrasound. ECG Data Attestation: I personally reviewed and interpreted this ECG as follows: ECG interpretation date: 04/30/21 ECG interpretation time: 11:22 Interpretation: normal sinus rhythm with a rate 82, normal MI, normal QRS, normal QT, nonspecific ST changes Discharge Plan Discharge Clinical Impression: Acute UTI, Cellulitis Patient Disposition: [facility] Instructions: Urinary Tract Infection in Men (DC), Cellulitis (DC) Additional Instructions: the patient may continue his Levaquin which will treat his known pneumonia as well as his urinary tract infection and cellulitis of his left leg make sure that he is taking the antibiotic with food his lab work, CT scan and ultrasound were all normal today Prescriptions: No Action latanoprost 0.005 % drops 1 drp ophthalmic (eye) BEDTIME 0RF carvedilol 12.5 mg tablet 1 tab PO BID 0RF atorvastatin 10 mg tablet 1 tab PO DAILY 0RF citalopram 10 mg tablet 1 tab PO DAILY 0RF pentoxifylline 400 mg tablet extended release 1 tab PO BID 0RF Hold Instructions: Resume on 03/02/20. if bleeding the stop citalopram 20 mg tablet 1 tab PO DAILY 0RF metformin 1,000 mg tablet 1 tab PO BID 0RF hydroxyzine HCl 25 mg tablet 25 mg PO DAILY 0RF furosemide 20 mg tablet 1 tab PO DAILY 0RF magnesium oxide 400 mg PO BID 0RF sucralfate 1 gram Tablet 1 g PO BEDTIME Qty: 30 0RF omeprazole 40 mg Capsule,Delayed Release(Dr/Ec) 40 mg PO BID@0630,1630 Qty: 60 0RF calcium carbonate [Oyster Shell Calcium 500] 500 mg calcium (1,250 mg) Tablet 500 mg PO TID Qty: 60 0RF ferrous sulfate 324 mg (65 mg iron) Tablet,Delayed Release (Dr/Ec) 324 mg PO BIDWM Qty: 30 0RF Levemir U-100 Insulin 100 unit/mL solution 25 unit subcut BID Qty: 0 0RF
[2021-04-30 11:37] LABS: MANUAL DIFF FLAG NO
[2021-04-30 11:45] LABS: Hematocrit 31.3 % (42.0-52.0); Mean Corpuscular HGB Conc 31.9 g/dl (31.0-36.0); Mean Corpuscular Hemoglobin 29.4 pg (27.0-33.0); Mean Corpuscular Volume 92.1 fL (80.0-98.0); White Blood Count 9.6 X10*3/uL (4.8-10.8)
[2021-04-30 11:46] LABS: Basophils Percent Auto 0.2 % (0-2); Eosinophils Percent Auto 0.1 % (0-4); Imm Gran Abs Auto 0.08 X10*3/uL (0.00-0.03); Imm Gran Pct Auto 0.8 % (0.0-0.4); Lymphocytes Absolute Auto 0.3 X10*3/uL (1.2-4.9); Lymphocytes Percent Auto 2.7 % (20-40); Monocytes Absolute Auto 0.8 X10*3/uL (0.1-1.2); Neutrophils Absolute Auto 8.5 x10*3/uL (2.0-8.3); Neutrophils Percent Auto 88.2 % (45-73)
[2021-04-30] MEDS: 0.9 % Sodium Chloride 500 ML 999 ML IV (11:49)
[2021-04-30] MEDS: Piperacillin Sodium/Tazobactam 3.375 GM in 0.9 % Sodium Chloride 50 ML IV (11:50)
[2021-04-30] MEDS: Morphine Sulfate 2 MG/ML CARTRIDGE IVPUSH (11:50)
[2021-04-30] MEDS: ondansetron HCL 4 MG/2 ML VIAL IVPUSH (11:50)
[2021-04-30 11:59] LABS: Platelet Count 51 X10*3/uL (160-400)
[2021-04-30 12:05] LABS: INTERNATIONAL NORM RATIO 1.5 (0.9-1.1); Prothrombin Time 17.3 SEC (9.9-13.0)
[2021-04-30 12:14] LABS: Alanine Aminotransferase 17 U/L (0-40); Albumin Level 3.2 g/dL (3.5-5.0); Alkaline Phosphatase 77 U/L (39-117); Anion Gap 14 (12-20); Aspartate Amino Transferase 28 U/L (5-37); Bilirubin Direct 1.1 mg/dL (0.0-0.5); Bilirubin Total 2.2 mg/dL (0.0-1.0); Blood Urea Nitrogen 26 mg/dL (9-16); Calcium 7.3 mg/dL (8.4-10.2); Carbon Dioxide 23 mmol/L (22-29); Chloride 101 mmol/L (96-108); Creatinine Clr Calc Pharmacy 78.5; Estimated Glomerular Filt Rate > 60; Glucose Random 278 mg/dL (60-115); Lipase 35 U/L (8-78); Magnesium 1.8 mg/dL (1.6-2.6); Potassium 3.4 mmol/L (3.3-5.1); Sodium 135 mmol/L (135-145); Total Protein 6.5 g/dL (6.5-8.0)
[2021-04-30 12:20] LABS: Influenza A Negative (Negative); Influenza B2 Negative (Negative)
[2021-04-30 12:21] LABS: COVID-19 Test Negative (Negative)
[2021-04-30 12:21] LABS: Troponin-I High Sensitivity 6.9 ng/L (<3.5-35.0)
[2021-04-30] MEDS: iohexoL 350 MG/ML 100 ML INFUS..BTL IV (12:59)
[2021-04-30 13:34] VITALS: BP 122/62; PULSE 84; RESP 16; O2SAT 95
[2021-04-30 14:49] LABS: Appearance Urine CLOUDY; Color Urine YELLOW; Glucose Urine UA NEG (NEG); Leukocyte Esterase Urine 1+ (NEG); Nitrite Urine NEG (NEG); PH 5.5 (5.0-8.0); Specific Gravity - Urine 1.015 (1.005-1.025); UACC Culture Trigger YES; Urine Blood TRACE (NEG); Urine Ketones NEG (NEG); Urine Protein 1+ MG/DL (NEG-TRACE)
[2021-04-30 15:02] LABS: Bacteria Urine TRACE /LPF; Mucus Urine TRACE /LPF; RBC Urine 0-2 /HPF (0); Squamous Epithelial Cell Urine 1+ /LPF; WBC Urine 30-49 /HPF (0-4)
[2021-04-30] MEDS: Famotidine/PF 20 MG/2 ML VIAL 40 MG IVPUSH (15:05)
[2021-04-30 16:00] VITALS: BP 132/61; PULSE 89; RESP 16; TEMP 36.7; O2SAT 98
--- NOTE | 2021-04-30 16:36 | PC.NURSE ---
Report to Tiffanie at [facility]
== END 2021-04-30 21:23 | disposition skilled nursing facility (03) ==
PROVIDERS: Nurse Practitioner Family; Emergency Provider Emergency Medicine
DX: N39.0 Urinary tract infection, site not specified (principal); J18.1 Lobar pneumonia, unspecified organism; L03.116 Cellulitis of left lower limb; Z20.822 Contact with and (suspected) exposure to COVID-19; E11.22 Type 2 diabetes mellitus with diabetic chronic kidney disease; I13.0 Hypertensive heart and chronic kidney disease with heart failure and stage 1 through stage 4 chronic kidney disease, or unspecified chronic kidney disease; N18.9 Chronic kidney disease, unspecified; I50.9 Heart failure, unspecified; I48.91 Unspecified atrial fibrillation; Z87.891 Personal history of nicotine dependence; Z79.02 Long term (current) use of antithrombotics/antiplatelets; Z79.4 Long term (current) use of insulin
CPT/HCPCS: 36415; 74177; 76705; 80048; 80076; 81001; 83605; 83690; 83735; 84484; 85025; 85610; 87040; 87086; 87147; 87186; 87205; 87502; 87635; 93005; 96361; 96365; 96375; 99284; J2270; J2405; J2543; Q9967

== ENCOUNTER 2021-10-12 09:59 | Outpatient (REF) | payer MEDICARE, MEDICAID, SELFPAY | END 2021-10-12 10:00 | disposition home or self-care (01) | LOC: HO.HAP 09:59 | PROVIDERS: Visit Provider Hospitalist | DX: Z46.1 Encounter for fitting and adjustment of hearing aid (principal); H90.3 Sensorineural hearing loss, bilateral | CPT/HCPCS: 92592 ==

== ENCOUNTER 2021-10-19 13:27 | Outpatient (REF) | payer MEDICARE, MEDICAID, SELFPAY | END 2021-10-19 13:28 | disposition home or self-care (01) | LOC: HO.HAP 13:27 | PROVIDERS: Visit Provider Internal Medicine | DX: Z46.1 Encounter for fitting and adjustment of hearing aid (principal); H90.3 Sensorineural hearing loss, bilateral | CPT/HCPCS: 92592; V5266 ==

== ENCOUNTER 2021-12-07 15:21 | Observation (INO) | payer MEDICARE, MEDICAID, SELFPAY ==
--- NOTE | ~2021-12-07 | US_ITS ---
EXAMINATION: US ABDOMEN LIMITED CLINICAL INFORMATION: Right upper quadrant pain, increased LFTs. COMPARISON: CT abdomen 12/07/2021 . Ultrasound abdomen 04/30/2021 TECHNIQUE: Real-time imaging of the right upper quadrant abdominal viscera. FINDINGS: PANCREAS: Normal. LIVER: The liver contour is normal. Mild increased parenchymal echogenicity. No focal hepatic lesion. There is no intrahepatic biliary duct dilatation seen. GALLBLADDER: There is sludge present in the gallbladder. Question mild gallbladder wall edema, without definite wall thickening. No significant pericholecystic fluid seen. Cable Tool Operator reports no tenderness in the area of the gallbladder. COMMON BILE DUCT: Not visualized by ultrasound. RIGHT KIDNEY: Midpole nonobstructing 1.5 x 0.5 x 1.3 cm calculus. No hydronephrosis. No focal parenchymal lesions. The kidney measures 10.4 cm in maximum dimension. FREE FLUID: None. Visualized aorta is of normal caliber. US/US abdomen limited IMPRESSION: Mild hepatic steatosis without focal lesion. Sludge in the gallbladder. No shadowing gallstones. Question mild gallbladder wall edema. No additional findings to suggest definite acute cholecystitis. Clinically correlate. Short-term follow-up ultrasound for reassessment as clinically warranted. Right renal midpole 1.5 cm nonobstructing calculus.
--- NOTE | ~2021-12-07 | NM_ITS ---
EXAMINATION: BILIARY TRACT IMAGING STUDY CLINICAL INDICATION: Right upper quadrant pain. Elevated LFT. COMPARISON: CT of the abdomen and pelvis done on 12/07/2021 and right upper quadrant abdominal ultrasound done on 12/07/2021. TECHNIQUE: Scintillation camera images were obtained over the abdomen for an observation of 120 minutes following the intravenous administration of 5 millicuries technetium 99m mebrofenin. Subsequent delayed images were also obtained at 3.5 hours post injection. FINDINGS: There is good concentration of activity in the liver by 5 minutes post injection. Biliary activity is well visualized by 10 minutes, and there is good visualization of small bowel activity by 15 minutes. The gallbladder is visualized only on delayed 3.5 hours images, consistent with chronic cholecystitis. Nonobstructed/acalculus acute cholecystitis however may also have similar appearance and cannot be further differentiated. NM/NM hepatobiliary wo pharm IMPRESSION: 1. Delayed visualization of the gallbladder, most consistent with chronic cholecystitis. Nonobstructed/acalculous acute cholecystitis however may also have similar appearance and cannot be further differentiated. 2. The common bile duct is patent. 3. Liver function appears normal.
--- NOTE | ~2021-12-07 | CT_ITS ---
EXAMINATION: CT ABDOMEN AND PELVIS WITHOUT CONTRAST CLINICAL INFORMATION: Nausea, abdominal pain. COMPARISON: CT abdomen and pelvis with IV contrast 04/30/2021, portable limited ultrasound abdomen 04/30/2021. TECHNIQUE: Multidetector volumetric imaging was performed from the superior aspect of the liver through the pubic symphysis. No oral or intravenous contrast. Sagittal and coronal reformatted images were obtained on the technologist's workstation. This CT examination was performed using dose optimization techniques as appropriate, variously including the following: *Automated exposure control *Adjustment of mA and/or kV according to patient size (this includes techniques or standardized protocols for targeted exams where dose is matched to indication/reason for exam; i.e. extremities or head) *Use of iterative reconstruction technique DLP: 899 mGy-cm FINDINGS: LUNG BASES: Linear scarring bilateral posterior bases. No airspace consolidation or effusion. There are is extrapleural areolar tissue at the bases as well as epicardial fat similar to prior exam. LIVER, GALLBLADDER, AND BILIARY TREE: Normal in size and homogeneous. Probable fine micronodular surface similar to previous exam. No focal parenchymal lesion. No intrahepatic ductal dilatation. Gallbladder is normal in caliber with no visible wall thickening or pericholecystic inflammatory changes. There is some increased attenuation in the dependent gallbladder which may represent sludge. PANCREAS: Unremarkable. SPLEEN: Homogeneous, enlarged measuring 15 cm in sagittal dimension. ADRENAL GLANDS: Unremarkable. KIDNEYS AND URETERS: No hydronephrosis, hydroureter, or perinephric stranding. No ureteral calculi. No left renal calculi. Right kidney again has nonobstructing lower pole calculus 0.8 x 0.5 cm, 1044 HU attenuation and residing 11 cm from the flank. Left kidney has stable Bosniak 2 anterior upper pole cyst approximately 3.8 cm with thin partially calcified septation. There is a smaller stable cyst posterior lower pole approximately 2.1 cm. No additional imaging evaluation recommended. BLADDER: Unremarkable. GASTROINTESTINAL TRACT: No bowel obstruction or focal inflammatory changes in the bowel or mesentery. No ascites or fluid collection. No pneumatosis or free air. The appendix is normal. ABDOMINAL WALL: Small bilateral fat-containing inguinal hernias. Borderline fat-containing umbilical hernia. LYMPH NODES: No lymphadenopathy. VASCULAR: Atherosclerotic calcifications coronary arteries. Atherosclerotic calcifications aorta or iliac arteries. Mild fusiform enlargement left common iliac 2.7 cm diameter similar to previous exam. Varices left upper quadrant around the spleen again seen. PELVIC VISCERA: Unremarkable. OSSEOUS STRUCTURES: No acute bony abnormality. CT/CT abdomen pelvis wo IV con IMPRESSION: -No acute inflammatory changes in abdomen or pelvis. -No bowel obstruction. Normal appendix. No ascites. -No hydronephrosis, hydroureter, or perinephric stranding. -Multiple findings as detailed above similar to prior imaging 04/30/2021.
[2021-12-07 15:26] VITALS: PULSE 54; RESP 16; TEMP 37.3; O2SAT 97
--- NOTE | 2021-12-07 15:37 | ECG_ITS ---
Test Reason : VOMITING Blood Pressure : / mmHG Vent. Rate : 050 BPM Atrial Rate : 000 BPM P-R Int : 000 ms QRS Dur : 114 ms QT Int : 512 ms P-R-T Axes : 000 029 077 degrees QTc Int : 466 ms Sinus bradycardia with 1st degree A-V block Incomplete right bundle branch block Nonspecific ST and T wave abnormality Abnormal ECG When compared with ECG of 30-APR-2021 11:22, Vent. rate has decreased BY [address] now depressed in Inferior leads Referred By: Donna Velázquez Electronically Signed By:GEORGIANA KU MD
[2021-12-07 15:38] VITALS: BP 105/46; BP 121/49; PULSE 54; PULSE 60; RESP 14; TEMP 37.3; O2SAT 98; BMI 30.4
--- NOTE | 2021-12-07 15:38 | ED.NAVMDI ---
HPI - Nausea/Vomiting/Diarrhea General Chief complaint: Nausea/Vomiting/Diarrhea Stated complaint: vomiting Time Seen by Provider: 12/07/21 15:24 Source: patient Mode of arrival: EMS History of Present Illness HPI Narrative: 66-year-old male who arrives via EMS with complaints of nausea and vomiting this morning with mild abdominal discomfort, last bowel movement was this morning and patient notes that he has had decreased flatus. Patient sources he also has an abdominal hernia and otherwise denies any shortness of breath or chest pain/palpitations. Related Data Home Medications Medication Instructions Recorded Confirmed atorvastatin 10 mg tablet 1 tab PO DAILY 02/21/20 02/21/20 carvedilol 12.5 mg tablet 1 tab PO BID 02/21/20 02/21/20 citalopram 10 mg tablet 1 tab PO DAILY 02/21/20 02/21/20 citalopram 20 mg tablet 1 tab PO DAILY 02/21/20 02/21/20 furosemide 20 mg tablet 1 tab PO DAILY 02/21/20 02/21/20 hydroxyzine HCl 25 mg tablet 25 mg PO DAILY 02/21/20 02/21/20 latanoprost 0.005 % eye drops 1 drp ophthalmic (eye) BEDTIME 02/21/20 02/21/20 magnesium oxide 400 mg PO BID 02/21/20 02/21/20 metformin 1,000 mg tablet 1 tab PO BID 02/21/20 02/21/20 pentoxifylline 400 mg 1 tab PO BID 02/21/20 02/21/20 tablet,extended release Previous Rx's Medication Instructions Recorded calcium carbonate 500 mg calcium 500 mg PO TID #60 tabs 02/25/20 (1,250 mg) tablet (Oyster Shell Calcium 500) ferrous sulfate 324 mg (65 mg 324 mg PO BIDWM #30 tabs 02/25/20 iron) tablet,delayed release insulin detemir U-100 100 unit/mL 25 unit (0.25 mL) subcut BID #0 mL 02/25/20 subcutaneous solution (Levemir U-100 Insulin) omeprazole 40 mg capsule,delayed 40 mg PO BID@0630,1630 #60 caps 02/25/20 release sucralfate 1 gram tablet 1 g PO BEDTIME #30 tabs 02/25/20 Allergies Allergy/AdvReac Type Severity Reaction Status Date / Time colchicine Allergy Unknown diarrhea Verified 02/20/20 12:43 Review of Systems Review of Systems: Pertinent positives and negatives as stated in HPI 10 point review of systems otherwise negative. FORMERLY [facility] Past Medical History Source: nursing notes reviewed Medical History Atrial fibrillation Blindness of left eye BPH (benign prostatic hyperplasia) CHF (congestive heart failure) COPD (chronic obstructive pulmonary disease) Diabetes Diverticulosis GERD (gastroesophageal reflux disease) Hypothyroid Major depression Osteoarthritis 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 Strain of left knee Thrombocytopenia Family History Family History Maternal Grandmother Diabetes Mother Diabetes Social History Social History Household Members: Other Housing: Snf Alcohol intake: former Patient Tobacco Use Status: Former Tobacco user Smoked in Last 30 Days: No Use of substances other than those prescribed or required for medical reasons: No Advance Directives: No Advance Directives Information Provided: Yes Advance Directives Date on File: 02/20/20 service: No Current occupational status: retired Physical Exam Vital Signs: Vital Signs: Last Vital Signs Temp 97.3 F 12/07/21 19:50 Pulse 51 12/07/21 19:50 Resp 16 12/07/21 19:50 BP 109/54 L 12/07/21 19:50 Pulse Ox 96 12/07/21 19:50 O2 Del Method 12/07/21 19:50 BMI result Body Mass Index 30.4 VITAL SIGNS: Reviewed. GENERAL: Well developed, well nourished, in no acute distress. HEAD: Normocephalic/atraumatic EYES: PERRLA, EOMI, BLIND IN LEFT EYE EARS: Ext canals without abnormality OROPHARYNX: no oral lesions noted, posterior pharynx clear LUNGS: Normal breath sounds, no tachypnea, positive rales SpO2<97> CARDIOVASCULAR: Regular rate and rhythm without noted murmurs, no JVD or lower extremity edema. ABDOMEN: Soft, tenderness to palpation at upper abdomen without rebound, tympany noted, distended with hypoactive bowel sounds. MUSCULOSKELETAL: No tenderness, deformities, or effusions noted on gross inspection. EXTREMITIES: No cyanosis, clubbing or edema. SKIN: Inspection of the skin reveals no rashes NEUROLOGIC: Alert and oriented x 3. Strength and sensation to light touch were grossly intact x 4. Course Course Course Narrative: 66-year-old male with history and clinical presentation suggestive of possible obstruction and will rule out infectious etiologies. Review of all investigations most consistent with a hepatitis and possible hepatobiliary etiology. I discussed the case with General surgery who recommends admission for obsess, fluids, repeat labs in a.m. as well as a HIDA scan. Patient remains mildly nauseous with vomiting. Patient was also hypoglycemic while here in the emergency room as he had taken his diabetic medications for the day but was unable to tolerate p.o.. I then followed up and discuss the case with the inpatient hospitalist who accepts admission. MDM - Nausea/Vomiting/Diarrhea Lab Data Result diagrams: 12/07/21 15:48 12/07/21 15:48 Labs: Lab Results 12/07/21 12/07/21 12/07/21 Range/Units 15:44 15:48 15:48 WBC 5.6 (4.8-10.8) X10*3/uL RBC 3.63 L (4.60-5.80) X10*6/uL Hgb 10.8 L (14.0-18.0) g/dl Hct 33.0 L (42.0-52.0) % MCV 90.9 (80.0-98.0) fL MCH 29.8 (27.0-33.0) pg MCHC 32.7 (31.0-36.0) g/dl RDW 15.6 (11.0-16.0) % Plt Count 44 L (160-400) X10*3/uL MPV 13.5 H (9.4-12.4) fL Immature Gran % (Auto) 0.9 H (0.0-0.4) % Neut % (Auto) 62.0 (45-73) % Lymph % (Auto) 19.2 L (20-40) % [place] % (Auto) 9.9 (2-11) % Eos % (Auto) 6.9 H (0-4) % Baso % (Auto) 1.1 (0-2) % Lymph # (Auto) 1.1 L (1.2-4.9) X10*3/uL [place] # (Auto) 0.6 (0.1-1.2) X10*3/uL Eos # (Auto) 0.4 (0.0-0.4) X10*3/uL Baso # (Auto) 0.1 (0.0-0.2) X10*3/uL Abs Immat Gran (auto) 0.05 H (0.00-0.03) X10*3/uL Absolute Neuts (auto) 3.5 (2.0-8.3) x10*3/uL Absolute Nucleated RBC 0.000 (0.0-0.012) X10*3/uL Nucleated RBC % (auto) 0.0 (0.0-0.2) /100WBC Smear Tech's Comments VERIFIED PT (10.0-13.1) SEC INR (0.9-1.1) Sodium 143 (135-145) mmol/L Potassium 3.5 (3.3-5.1) mmol/L Chloride 103 (96-108) mmol/L Carbon Dioxide 28 (22-29) mmol/L Anion Gap 16 (12-20) BUN 12 D (9-16) mg/dL Creatinine 1.03 (0.5-1.4) mg/dL Estim Creat Clear Calc 84.8 Estimated GFR > 60 POC Glucose (60-115) mg/dL Random Glucose 109 D (60-115) mg/dL Calcium 7.4 L (8.4-10.2) mg/dL Total Bilirubin 1.9 H (0.0-1.0) mg/dL AST 183 H (5-37) U/L ALT 215 H (0-40) U/L Alkaline Phosphatase 262 H D (39-117) U/L Troponin I High Sens (<3.5-35.0) ng/L B-Natriuretic Peptide (<100) pg/mL Total Protein 7.1 (6.5-8.0) g/dL Albumin 3.8 (3.5-5.0) g/dL Lipase 48 (8-78) U/L COVID-19 ([facility]) Negative (Negative) COVID-19 Clin Com See Note 12/07/21 12/07/21 12/07/21 Range/Units 15:48 15:48 18:10 WBC (4.8-10.8) X10*3/uL RBC (4.60-5.80) X10*6/uL Hgb (14.0-18.0) g/dl Hct (42.0-52.0) % MCV (80.0-98.0) fL MCH (27.0-33.0) pg MCHC (31.0-36.0) g/dl RDW (11.0-16.0) % Plt Count (160-400) X10*3/uL MPV (9.4-12.4) fL Immature Gran % (Auto) (0.0-0.4) % Neut % (Auto) (45-73) % Lymph % (Auto) (20-40) % [place] % (Auto) (2-11) % Eos % (Auto) (0-4) % Baso % (Auto) (0-2) % Lymph # (Auto) (1.2-4.9) X10*3/uL [place] # (Auto) (0.1-1.2) X10*3/uL Eos # (Auto) (0.0-0.4) X10*3/uL Baso # (Auto) (0.0-0.2) X10*3/uL Abs Immat Gran (auto) (0.00-0.03) X10*3/uL Absolute Neuts (auto) (2.0-8.3) x10*3/uL Absolute Nucleated RBC (0.0-0.012) X10*3/uL Nucleated RBC % (auto) (0.0-0.2) /100WBC Smear Tech's Comments PT 13.7 H (10.0-13.1) SEC INR 1.2 H (0.9-1.1) Sodium (135-145) mmol/L Potassium (3.3-5.1) mmol/L Chloride (96-108) mmol/L Carbon Dioxide (22-29) mmol/L Anion Gap (12-20) BUN (9-16) mg/dL Creatinine (0.5-1.4) mg/dL Estim Creat Clear Calc Estimated GFR POC Glucose 45 L* (60-115) mg/dL Random Glucose (60-115) mg/dL Calcium (8.4-10.2) mg/dL Total Bilirubin (0.0-1.0) mg/dL AST (5-37) U/L ALT (0-40) U/L Alkaline Phosphatase (39-117) U/L Troponin I High Sens 4.5 (<3.5-35.0) ng/L B-Natriuretic Peptide 88 (<100) pg/mL Total Protein (6.5-8.0) g/dL Albumin (3.5-5.0) g/dL Lipase (8-78) U/L COVID-19 ([facility]) (Negative) COVID-19 Clin Com 12/07/21 Range/Units 19:49 WBC (4.8-10.8) X10*3/uL RBC (4.60-5.80) X10*6/uL Hgb (14.0-18.0) g/dl Hct (42.0-52.0) % MCV (80.0-98.0) fL MCH (27.0-33.0) pg MCHC (31.0-36.0) g/dl RDW (11.0-16.0) % Plt Count (160-400) X10*3/uL MPV (9.4-12.4) fL Immature Gran % (Auto) (0.0-0.4) % Neut % (Auto) (45-73) % Lymph % (Auto) (20-40) % [place] % (Auto) (2-11) % Eos % (Auto) (0-4) % Baso % (Auto) (0-2) % Lymph # (Auto) (1.2-4.9) X10*3/uL [place] # (Auto) (0.1-1.2) X10*3/uL Eos # (Auto) (0.0-0.4) X10*3/uL Baso # (Auto) (0.0-0.2) X10*3/uL Abs Immat Gran (auto) (0.00-0.03) X10*3/uL Absolute Neuts (auto) (2.0-8.3) x10*3/uL Absolute Nucleated RBC (0.0-0.012) X10*3/uL Nucleated RBC % (auto) (0.0-0.2) /100WBC Smear Tech's Comments PT (10.0-13.1) SEC INR (0.9-1.1) Sodium (135-145) mmol/L Potassium (3.3-5.1) mmol/L Chloride (96-108) mmol/L Carbon Dioxide (22-29) mmol/L Anion Gap (12-20) BUN (9-16) mg/dL Creatinine (0.5-1.4) mg/dL Estim Creat Clear Calc Estimated GFR POC Glucose 128 H (60-115) mg/dL Random Glucose (60-115) mg/dL Calcium (8.4-10.2) mg/dL Total Bilirubin (0.0-1.0) mg/dL AST (5-37) U/L ALT (0-40) U/L Alkaline Phosphatase (39-117) U/L Troponin I High Sens (<3.5-35.0) ng/L B-Natriuretic Peptide (<100) pg/mL Total Protein (6.5-8.0) g/dL Albumin (3.5-5.0) g/dL Lipase (8-78) U/L COVID-19 ([facility]) (Negative) COVID-19 Clin Com ECG Data Attestation: I personally reviewed and interpreted this ECG as follows: Prior ECG tracings: available for review Interpretation: Sinus, HR-50, no STEMI, this EKG does not demonstrate any changes when compared to prior from 04/30/2021 but machine experiencing some difficulty with picking up P waves which are visualized in V1. QTC is within lungs normal limits. Discharge Plan Discharge Clinical Impression: Abdominal pain, Hepatitis Patient Disposition: Admitted As Inpatient Prescriptions: No Action latanoprost 0.005 % drops 1 drp ophthalmic (eye) BEDTIME carvedilol 12.5 mg tablet 1 tab PO BID atorvastatin 10 mg tablet 1 tab PO DAILY citalopram 10 mg tablet 1 tab PO DAILY pentoxifylline 400 mg tablet extended release 1 tab PO BID Hold Instructions: Resume on 03/02/20. if bleeding the stop citalopram 20 mg tablet 1 tab PO DAILY metformin 1,000 mg tablet 1 tab PO BID hydroxyzine HCl 25 mg tablet 25 mg PO DAILY furosemide 20 mg tablet 1 tab PO DAILY magnesium oxide 400 mg PO BID sucralfate 1 gram Tablet 1 g PO BEDTIME Qty: 30 0RF omeprazole 40 mg Capsule,Delayed Release(Dr/Ec) 40 mg PO BID@0630,1630 Qty: 60 0RF calcium carbonate [Oyster Shell Calcium 500] 500 mg calcium (1,250 mg) Tablet 500 mg PO TID Qty: 60 0RF ferrous sulfate 324 mg (65 mg iron) Tablet,Delayed Release (Dr/Ec) 324 mg PO BIDWM Qty: 30 0RF Levemir U-100 Insulin 100 unit/mL solution 25 unit subcut BID Qty: 0 0RF
[2021-12-07 16:00] LABS: Basophils Absolute Auto 0.1 X10*3/uL (0.0-0.2); Basophils Percent Auto 1.1 % (0-2); Imm Gran Abs Auto 0.05 X10*3/uL (0.00-0.03); Imm Gran Pct Auto 0.9 % (0.0-0.4); MANUAL DIFF FLAG SCAN; Monocytes Absolute Auto 0.6 X10*3/uL (0.1-1.2); Red Blood Count 3.63 X10*6/uL (4.60-5.80); Red Cell Distribution Width 15.6 % (11.0-16.0); SCAN SMEAR FLAG 1
[2021-12-07 16:02] LABS: Eosinophils Absolute Auto 0.4 X10*3/uL (0.0-0.4); Eosinophils Percent Auto 6.9 % (0-4); Hemoglobin 10.8 g/dl (14.0-18.0); Lymphocytes Absolute Auto 1.1 X10*3/uL (1.2-4.9); Lymphocytes Percent Auto 19.2 % (20-40); Mean Corpuscular HGB Conc 32.7 g/dl (31.0-36.0); Mean Corpuscular Hemoglobin 29.8 pg (27.0-33.0); Mean Corpuscular Volume 90.9 fL (80.0-98.0); Mean Platelet Volume 13.5 fL (9.4-12.4); Monocytes Percent Auto 9.9 % (2-11); Neutrophils Absolute Auto 3.5 x10*3/uL (2.0-8.3); White Blood Count 5.6 X10*3/uL (4.8-10.8)
[2021-12-07 16:03] LABS: INTERNATIONAL NORM RATIO 1.2 (0.9-1.1); Prothrombin Time 13.7 SEC (10.0-13.1)
[2021-12-07 16:15] LABS: Albumin Level 3.8 g/dL (3.5-5.0); Anion Gap 16 (12-20); Bilirubin Total 1.9 mg/dL (0.0-1.0); Blood Urea Nitrogen 12 mg/dL (9-16); Calcium 7.4 mg/dL (8.4-10.2); Carbon Dioxide 28 mmol/L (22-29); Chloride 103 mmol/L (96-108); Creatinine Clr Calc Pharmacy 84.8; Estimated Glomerular Filt Rate > 60; Glucose Random 109 mg/dL (60-115); Potassium 3.5 mmol/L (3.3-5.1); Sodium 143 mmol/L (135-145); Total Protein 7.1 g/dL (6.5-8.0)
[2021-12-07 16:17] LABS: B Type Natriuretic Peptide 88 pg/mL (<100); Troponin-I High Sensitivity 4.5 ng/L (<3.5-35.0)
[2021-12-07 16:18] LABS: PLT ABN DIST 1
[2021-12-07 16:21] LABS: COVID-19 Test Negative (Negative); IDNOW Serial# 55D5AD1C
[2021-12-07 16:27] LABS: Platelet Count 44 X10*3/uL (160-400); SLIDE REVIEW VERIFIED
[2021-12-07 16:28] LABS: Alanine Aminotransferase 215 U/L (0-40); Alkaline Phosphatase 262 U/L (39-117); Aspartate Amino Transferase 183 U/L (5-37)
[2021-12-07 16:53] LABS: Lipase 48 U/L (8-78)
[2021-12-07 18:13] LABS: Glucose, Whole Blood 45 mg/dL (60-115)
--- NOTE | 2021-12-07 18:13 | PC.NURSE ---
PATIENT BLOOD SUGAR CHECK IS 45 ,RN SOLEDAD AWARE PATIENT WAS GIVEN A PBJ SANDWICH AND ORANGE JUICE .
[2021-12-07] MEDS: ondansetron HCL 4 MG/2 ML VIAL IVPUSH (19:10)
[2021-12-07] MEDS: Dextrose 50 % 25 GM/50 ML SYRINGE IVPUSH (19:18)
[2021-12-07 19:50] VITALS: BP 109/54; PULSE 51; RESP 16; TEMP 36.3; O2SAT 96
[2021-12-07 20:01] LABS: Glucose, Whole Blood 128 mg/dL (60-115)
[2021-12-07] MEDS: 0.9 % Sodium Chloride 500 ML IV (20:39)
--- NOTE | 2021-12-07 21:51 | P.HPHOSP_ITS ---
History of Present Illness Date of Service: 12/07/21 Attending physician on admission: Cris Hough Chief Complaint: n/v, po intolerance, ruq pain 66-year-old male with history of paroxysmal atrial fibrillation, congestive heart failure, BPH, COPD, insulin-dependent type 2 diabetes, GERD, hypothyroidism, depression, thrombocytopenia secondary to ITP, blindness of the left eye, gout, history of upper GI bleed presented to ED this morning via EMS from [facility] where he resides due to nausea, vomiting, decreased p.o. tolerance, and right upper quadrant pain ongoing for 2.5 weeks. 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 He states that he has a was tolerate liquids but vomits any time he eats. He also endorses chronic intermittent diarrhea but denies any hematochezia or melena. No hematemesis. He denies any fevers, chills, reflux, dysphagia, globus sensation, shortness of breath, lightheadedness, palpitations, or chest pains. On arrival, mild bradycardia 54. Patient is afebrile, no hypotension or hypoxia. No leukocytosis. Stable normocytic anemia with HGB/HCT 10.8/33.0%. Glucose 45 on arrival treated with 1 amp D50 and also given 500 mL NS. Renal function and electrolyte levels normal. Total bilirubin 1.9 (baseline). AST 183, ALT 215, alkaline phosphatase 262 (baseline 28, 17, and 77 respectively). Trop-I 4.5, BNP 88. Lipase 48. CT abdo men/pelvis without any acute intra-abdominal. Subsequent abdominal ultrasound showing mild hepatic steatosis without focal lesion as well as sludge in the gallbladder without any obvious gallstones. There is question of mild gallbladder wall edema but no other findings to suggest definite acute ch olecystitis. Reports occasional ETOH use but does endorse history of alcohol abuse. No illicit drug use. Former smoker. ED discussed case with Gastroenterology who is recommending patient be observed overnight. Review of Systems Review of Systems: General: No fevers, malaise, unintentional weight loss HEENT: + blindness left eye Cardiovascular: No chest pain, palpitations, or leg edema Respiratory: No shortness of breath, wheezing, cough GI: + RUQ pain, + nausea/vomiting, + diarrhea, + fecal incontinence. No constipation, melena, hematochezia : + urinary incontinence. 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 Strain of left knee Thrombocytopenia Family History Maternal Grandmother Diabetes Mother Diabetes Social History Household Members: Other Housing: Senior Living Alcohol intake: former Patient Tobacco Use Status: Former Tobacco user Smoked in Last 30 Days: No Use of substances other than those prescribed or required for medical reasons: No Advance Directives: No Advance Directives Information Provided: Yes Advance Directives Date on File: 02/20/20 service: No Current occupational status: retired [employer] Allergies Allergy/AdvReac Type Severity Reaction Status Date / Time colchicine Allergy Unknown diarrhea Verified 02/20/20 12:43 Active Medications: Current Medications Pharmacy Consult (Consult Rx Perform Med Rec) 1 each MISCELLANE ONCE PRN PRN Reason: Consult order Home Medications Medication Instructions Recorded Confirmed Last Taken Type atorvastatin 10 mg tablet 1 tab PO DAILY@1700 02/21/20 12/07/21 Unknown History carvedilol 12.5 mg tablet 1 tab PO BID@0800,1700 02/21/20 12/07/21 Unknown History citalopram 10 mg tablet 1 tab PO DAILY 02/21/20 12/07/21 Unknown History citalopram 20 mg tablet 1 tab PO DAILY 02/21/20 12/07/21 Unknown History furosemide 20 mg tablet 1 tab PO DAILY 02/21/20 12/07/21 Unknown History hydroxyzine HCl 25 mg tablet 25 mg PO DAILY 02/21/20 12/07/21 Unknown History latanoprost 0.005 % eye drops 1 drp ophthalmic-Right DAILY@1700 02/21/20 12/07/21 Unknown History pentoxifylline 400 mg 1 tab PO BID 02/21/20 12/07/21 Unknown History tablet,extended release acetaminophen 500 mg tablet 1,000 mg PO TID@0800,1300,1700 12/07/21 12/07/21 Unknown History calcium carbonate 200 mg calcium 200 mg PO TID@0800,1200,1700 12/07/21 12/07/21 Unknown History (500 mg) chewable tablet (Calcium Antacid) cholecalciferol (vitamin D3) 1,250 1,250 mcg PO QMONTH 12/07/21 12/07/21 Unknown History mcg (50,000 unit) capsule erythromycin 5 mg/gram (0.5 %) eye 1 appl ophthalmic-Left MOTH@0900 12/07/21 1 Unknown History ointment ferrous sulfate 325 mg (65 mg 325 mg PO DAILY@1700 12/07/21 12/07/21 Unknown History iron) tablet insulin aspart U-100 100 unit/mL See Protocol subcut QIDACHS 12/07/21 12/07/21 Unknown History subcutaneous solution (Novolog U-100 Insulin aspart) insulin detemir U-100 100 unit/mL 100 unit subcut BID@0730,1800 12/07/21 12/07/21 Unknown History subcutaneous solution (Levemir U-100 Insulin) lisinopril 5 mg tablet 1 tab PO DAILY 12/07/21 12/07/21 Unknown History magnesium oxide 400 mg PO DAILY 12/07/21 12/07/21 Unknown History melatonin 5 mg tablet 5 mg PO DAILY@1700 12/07/21 12/07/21 Unknown History sucralfate 1 gram tablet 1 g PO TID@0800,1200,1600 12/07/21 12/07/21 Unknown History sucralfate 1 gram tablet 1 tab PO BEDTIME 12/07/21 12/07/21 Unknown History Physical Exam Vital Signs and Narrative: Vital Signs: Last Vital Signs Temp 97.3 F 12/07/21 19:50 Pulse 51 12/07/21 19:50 Resp 16 12/07/21 19:50 BP 109/54 L 12/07/21 19:50 Pulse Ox 96 12/07/21 19:50 O2 Del Method 12/07/21 19:50 BMI result Body Mass Index 30.4 Constitutional - Awake and Alert, No apparent distress Eyes - PERRLA, EOMI Mouth: Lips/tongue/mucosa dry appearing Neck: no adenopathy Cardiovascular - S1S2, RRR, No edema Respiratory - Normal lung expansion, Normal respiratory effort, No respiratory distress, CTA bilaterally Gastrointestinal - Obese abdomen. Mild RUQ ttp, negative glass sign. ND; +BS; No rebound or guarding Extremities - no calf tenderness bilaterally, no swelling Skin - Warm/Dry Neurological - Alert & oriented x3, CN II-XII in tact Results Labs CBC and Chem 7: 12/07/21 15:48 12/07/21 15:48 Labs: Laboratory Results - last 24 hr 12/07/21 12/07/21 12/07/21 15:44 15:48 15:48 MCV 90.9 MCH 29.8 MCHC 32.7 RDW 15.6 Plt Count 44 L MPV 13.5 H Immature Gran % (Auto) 0.9 H Neut % (Auto) 62.0 Lymph % (Auto) 19.2 L Jewell % (Auto) 9.9 Eos % (Auto) 6.9 H Baso % (Auto) 1.1 Lymph # (Auto) 1.1 L Jewell # (Auto) 0.6 Eos # (Auto) 0.4 Baso # (Auto) 0.1 Abs Immat Gran (auto) 0.05 H Absolute Neuts (auto) 3.5 Absolute Nucleated RBC 0.000 Nucleated RBC % (auto) 0.0 Smear Tech's Comments VERIFIED PT INR Anion Gap 16 Estim Creat Clear Calc 84.8 Estimated GFR > 60 POC Glucose Random Glucose 109 D Calcium 7.4 L Total Bilirubin 1.9 H AST 183 H ALT 215 H Alkaline Phosphatase 262 H D Troponin I High Sens B-Natriuretic Peptide Total Protein 7.1 Albumin 3.8 Lipase 48 COVID-19 ([facility]) Negative COVID-19 Clin Com See Note 12/07/21 12/07/21 12/07/21 15:48 15:48 18:10 MCV MCH MCHC RDW Plt Count MPV Immature Gran % (Auto) Neut % (Auto) Lymph % (Auto) Jewell % (Auto) Eos % (Auto) Baso % (Auto) Lymph # (Auto) Jewell # (Auto) Eos # (Auto) Baso # (Auto) Abs Immat Gran (auto) Absolute Neuts (auto) Absolute Nucleated RBC Nucleated RBC % (auto) Smear Tech's Comments PT 13.7 H INR 1.2 H Anion Gap Estim Creat Clear Calc Estimated GFR POC Glucose 45 L* Random Glucose Calcium Total Bilirubin AST ALT Alkaline Phosphatase Troponin I High Sens 4.5 B-Natriuretic Peptide 88 Total Protein Albumin Lipase COVID-19 ([facility]) COVID-19 Clin Com 12/07/21 19:49 MCV MCH MCHC RDW Plt Count MPV Immature Gran % (Auto) Neut % (Auto) Lymph % (Auto) Jewell % (Auto) Eos % (Auto) Baso % (Auto) Lymph # (Auto) Jewell # (Auto) Eos # (Auto) Baso # (Auto) Abs Immat Gran (auto) Absolute Neuts (auto) Absolute Nucleated RBC Nucleated RBC % (auto) Smear Tech's Comments PT INR Anion Gap Estim Creat Clear Calc Estimated GFR POC Glucose 128 H Random Glucose Calcium Total Bilirubin AST ALT Alkaline Phosphatase Troponin I High Sens B-Natriuretic Peptide Total Protein Albumin Lipase COVID-19 ([facility]) COVID-19 Clin Com Imaging Radiologist's Impressions: Impressions Abdomen/Pelvis CT 12/07/21 16:44 IMPRESSION: -No acute inflammatory changes in abdomen or pelvis. -No bowel obstruction. Normal appendix. No ascites. -No hydronephrosis, hydroureter, or perinephric stranding. -Multiple findings as detailed above similar to prior imaging 04/30/2021. Abdomen Ultrasound 12/07/21 19:00 IMPRESSION: Mild hepatic steatosis without focal lesion. Sludge in the gallbladder. No shadowing gallstones. Question mild gallbladder wall edema. No additional findings to suggest definite acute cholecystitis. Clinically correlate. Short-term follow-up ultrasound for reassessment as clinically warranted. Right renal midpole 1.5 cm nonobstructing calculus. Assessment and Plan (1) Abdominal pain: Status: Acute (2) Nausea and vomiting: Status: Acute (3) Transaminitis: Status: Acute Plan 66-year-old male with history of paroxysmal atrial fibrillation, congestive heart failure, BPH, COPD, insulin-dependent type 2 diabetes, GERD, hypothyroidism, depression, thrombocytopenia secondary to ITP, PAD, blindness of the left eye, gout, history of upper GI bleed to be observed for nausea and vomiting with decreased p.o. tolerance as well as transaminitis with concern for choledocholithiasis. #Nausea and vomiting- likely secondary to gallbladder pathology -Continue gentle IVF with LR -Full liquids -Ondansetron prn -renal function and lytes normal. Follow BMP #Transaminitis w. RUQ pain -AST 183, ALT 215, alkaline phosphatase 262. Total bili chronically elevated, currently 1.9 -abdominal ultrasound showing gallbladder sludge without any obvious cholelithiasis but with question of gallbladder wall edema as well as hepatic steatosis -gastroenterology consult ordered -HIDA scan ordered -hepatitis panel pending -CMP am # insulin-dependent type 2 diabetes with hypoglycemia secondary to poor p.o. intake -glucose 45 on arrival to ED. Given 1 amp D50 with correction to 128 -full liquid diet -POC glucose -Hypoglycemia protocol -Dose adjusted levemir -Humalog SSI #HTN- bp soft -hold home bp meds for now -monitor BP # paroxysmal atrial fibrillation- no RVR -Hold carvedilol for now due to bradycardia and soft bp. Reassess HR in am, may need dose reduction -EKG showing junctional rhythm, rate [address]/T-wave abnormality. Troponin negative -Not on anticoagulation- hx GI bleeding #CHF without acute exacerbation unspecified type- euvolemic -Continue furosemide -BNP normal # hypothyroidism -continue levothyroxine # HLD -continue statin # depression -continue citalopram # chronic normocytic anemia-stable -continue ferrous sulfate #thrombocytopenia secondary to ITP-stable # PAD -COntinue pentoxifylline #Gerd -continue ppi and carafate Patient is wheelchair bound requires 2 person higher left for transfer DVT prophylaxis-Lovenox DNR/DNI per MOLST form Quality Stroke Does the patient have a stroke diagnosis?: No VTE Prior VTE?: No VTE Risk Level:: Medical - moderate - high VTE Device Contraindication: Treatment Not Indicated VTE Drug Contraindication: N/A - Med Ordered
[2021-12-07 22:57] LABS: Alanine Aminotransferase 214 U/L (0-40); Albumin Level 3.9 g/dL (3.5-5.0); Alkaline Phosphatase 271 U/L (39-117); Anion Gap 16 (12-20); Aspartate Amino Transferase 173 U/L (5-37); Bilirubin Total 1.9 mg/dL (0.0-1.0); Blood Urea Nitrogen 11 mg/dL (9-16); Calcium 7.4 mg/dL (8.4-10.2); Carbon Dioxide 28 mmol/L (22-29); Chloride 104 mmol/L (96-108); Creatinine Clr Calc Pharmacy 92.9; Estimated Glomerular Filt Rate > 60; Glucose Random 113 mg/dL (60-115); Potassium 3.9 mmol/L (3.3-5.1); Sodium 144 mmol/L (135-145); Total Protein 7.2 g/dL (6.5-8.0)
--- NOTE | 2021-12-07 23:23 | PC.NURSE ---
This RN called pharmacy at [phone] to request Latanoprost for the pt. Pharmacy stated that the med would be delivered, but it was never found by this RN at the charge nurse desk or in the Pyxis. Med charted as unavailable in the APR.
[2021-12-07] MEDS: Enoxaparin Sodium 40 MG/0.4 ML SYRINGE SUBCUT (23:32)
[2021-12-07] MEDS: Lactated Ringers 1,000 ML 50 ML IVCONT (23:32)
[2021-12-07] MEDS: Atorvastatin Calcium 10 MG TABLET PO (23:33)
[2021-12-07] MEDS: Sucralfate 1 GM TABLET PO (23:33)
[2021-12-07] MEDS: 0.9 % Sodium Chloride Flush 3 ML SYRINGE IVFLUSH (23:34)
[2021-12-07] MEDS: Latanoprost 0.005 % Ophth Sol 2.5 ML DROPS 1 DROP EYE-RIGHT (23:36)
[2021-12-08 01:09] VITALS: BP 143/69; PULSE 66; RESP 16; O2SAT 97
[2021-12-08 06:00] VITALS: BP 118/51; PULSE 58; RESP 13; O2SAT 98
[2021-12-08] MEDS: Omeprazole 40 MG CAPSULE.DR PO ×2 (06:33→18:11)
[2021-12-08 07:10] VITALS: BP 127/51; PULSE 57; RESP 16; O2SAT 97
[2021-12-08 07:15] VITALS: BP 112/49; PULSE 58; RESP 17; O2SAT 99
[2021-12-08 07:15] LABS: Glucose, Whole Blood 118 mg/dL (60-115)
--- NOTE | 2021-12-08 07:18 | PC.NURSE ---
Pt reports no pain at this time just a little nausea . Pt is speaking in complete clear sentences, skin WDP. IV fluids running at 50ml/hr. Pt waiting for HIDA scan
[2021-12-08] MEDS: Escitalopram Oxalate 10 MG TABLET 15 MG PO (08:05)
[2021-12-08] MEDS: Furosemide 20 MG TABLET PO (08:05)
[2021-12-08] MEDS: Magnesium Oxide 400 MG TABLET PO (08:07)
[2021-12-08] MEDS: Pentoxifylline ER 400 MG TABLET.ER PO ×2 (08:07→22:41)
[2021-12-08] MEDS: hydrOXYzine HCL 25 MG TABLET PO (08:07)
[2021-12-08] MEDS: Erythromycin Base 0.5% Oph Oin 1 GM TUBE 1 CM EYE-LEFT (08:07)
[2021-12-08] MEDS: 0.9 % Sodium Chloride Flush 3 ML SYRINGE IVFLUSH (08:09)
[2021-12-08 08:59] LABS: HBS Num1 0.95 mIU/mL (0-7.99); HBc Num1 0.13 S/CO (0.00-0.79); Hepatitis B Core Antibody Nonreactive (Nonreactive); Hepatitis B Surface Antigen Negative (Negative); ~HepC Num1 0.12 S/CO (0.00-0.79); ~Hepatitis B Surface Antibody NONREACTIVE (Nonreactive); ~Hepatitis C Antibody Nonreactive (Nonreactive)
--- NOTE | 2021-12-08 11:42 | PM.GICN ---
History of Present Illness Data of Consult Service Date: 12/08/21 Requesting physician: Denise Reeder Primary Care Provider: Unknown Physician HPI Reason for consult: Nausea and vomiting, elevated LFTs 66 YM with paroxysmal AF, CHF, BPH, COPD, insulin-dependent type 2 diabetes, GERD, hypothyroidism, depression, thrombocytopenia secondary to ITP, blindness of the left eye, gout, history of upper GI bleed seen [place] [facility] on 12/07/21 with nausea, vomiting, decreased p.o. tolerance, and post prandial RUQ/epigastric pain for the past 2.5 to 3 weeks.? 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 He states that he has been tolerating liquids but vomits any time he eats.? Pt also endorses intermittent heartburn, vomiting and chronic intermittent diarrhea but denies any hematochezia or melena.? No hematemesis.? He denies any fevers, chills, dysphagia, globus sensation, shortness of breath, lightheadedness, palpitations, or chest pains.? His PO intake has been low and pt admits to wt loss of 5 lbs (from 220 to 215 lbs) Pt admits to dinking a beer 1-2 times a week. He has a hx of heavy ETOH abuse in the past and cut back when he moved to a [place] 12 yrs ago. Reports occasional ETOH use but does endorse history of alcohol abuse.? No illicit drug use.? Former smoker.? Pt admits to taking aspirin and denies use of NSAIDS. On arrival to the ER pt noted to have mild bradycardia (HR of 54).? He was afebrile, no hypotension or hypoxia.? Labs showed stable normocytic anemia with HGB/HCT 10.8/33.0%.? Glucose 45 on arrival treated with 1 amp D50 and also given 500 mL NS.? Renal function and electrolyte levels normal.? Total bilirubin 1.9 (baseline).? AST 183, ALT 215, alkaline phosphatase 262 (baseline 28, 17, and 77 respectively). Trop-I 4.5, BNP 88. Lipase 48.? 12/07/[address] SCAN SHOWED: LIVER, GALLBLADDER, AND BILIARY TREE: Normal in size and homogeneous. Probable fine micronodular surface similar to previous exam. No focal parenchymal lesion. No intrahepatic ductal dilatation. Gallbladder is normal in caliber with no visible wall thickening or pericholecystic inflammatory changes. There is some increased attenuation in the dependent gallbladder which may represent sludge.? 12/07/21 ABD US SHOWED: Mild hepatic steatosis without focal lesion. ? Sludge in the gallbladder. No shadowing gallstones. Question mild gallbladder wall edema. No additional findings to suggest definite acute cholecystitis. Clinically correlate. Short-term follow-up ultrasound for reassessment as clinically warranted. ? Right renal midpole 1.5 cm nonobstructing calculus. Review of Systems Review of Systems: General: No fevers, malaise, unintentional weight loss HEENT: + blindness left eye Cardiovascular: No chest pain, palpitations, or leg edema Respiratory: No shortness of breath, wheezing, cough GI: + RUQ pain, + nausea/vomiting, + diarrhea, + fecal incontinence. No constipation, melena, hematochezia : + urinary incontinence. 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 Strain of left knee Thrombocytopenia Family History Family History Maternal Grandmother Diabetes Mother Diabetes Social History Social History Household Members: None Housing: Intermediate Housing Other:: [facility] Do you presently have visiting nurse or other home services: No Alcohol intake: current Alcohol intake frequency: holidays/special occasions only Patient Tobacco Use Status: Former Tobacco user Tobacco use type: Cigarette Advance Directives Date on File: 02/20/20 service: No Current occupational status: retired Meds Allergies Allergy/AdvReac Type Severity Reaction Status Date / Time colchicine Allergy Unknown diarrhea Verified 02/20/20 12:43 Active Medications: Current Medications Acetaminophen (Acetaminophen 325 Mg Tablet) 650 mg PO Q6H PRN PRN Reason: Pain, Mild (Pain Scale 1-3) Atorvastatin Calcium (Atorvastatin Calcium 10 Mg Tablet) 10 mg PO DAILY@1700 [facility] Last Admin: 12/07/21 23:33 Dose: 10 mg Calcium Carbonate (Calcium Carbonate 750 Mg Tab.Chew) 750 mg PO TID@0800,1200,1700 [facility] Last Admin: 12/08/21 07:59 Dose: Not Given Dextrose (Dextrose 50 % 25 Gm/50 Ml Syringe) 25 gm IVPUSH Q15M PRN; Protocol PRN Reason: per Hypoglycemia Standing Ord. Enoxaparin Sodium (Enoxaparin Sodium 40 Mg/0.4 Ml Syringe) 40 mg SUBCUT Q24H [facility] Last Admin: 12/07/21 23:32 Dose: 40 mg Erythromycin (Erythromycin Base 0.5% Oph Oin 1 Gm Tube) 1 cm EYE-LEFT MOTH@0900 [facility] Last Admin: 12/08/21 08:07 Dose: 1 cm Escitalopram Oxalate (Escitalopram Oxalate 10 Mg Tablet) 15 mg PO DAILY [facility] Last Admin: 12/08/21 08:05 Dose: 15 mg Ferrous Sulfate (Ferrous Sulfate 324 Mg Tablet.Dr) 324 mg PO DAILY@1700 [facility] Furosemide (Furosemide 20 Mg Tablet) 20 mg PO DAILY [facility]; Protocol Last Admin: 12/08/21 08:05 Dose: 20 mg Glucose (Glucose Gel 15 Gm Gel..Gram.) 15 gm PO Q15M PRN; Protocol PRN Reason: per Hypoglycemia Standing Ord. Hydroxyzine HCl (Hydroxyzine Hcl 25 Mg Tablet) 25 mg PO DAILY [facility] Last Admin: 12/08/21 08:07 Dose: 25 mg Lactated Ringer's (Lr) 1,000 mls @ 50 mls/hr IVCONT .Q20H [facility] Last Admin: 12/07/21 23:32 Dose: 50 mls/hr Insulin Glargine (Insulin Glargine,Hum.Rec.Anlog 100 Unit/Ml 10 Ml Vial) 35 unit SUBCUT BID@0730,1800 [facility] Last Admin: 12/08/21 08:19 Dose: Not Given Insulin Human Lispro (Insulin Lispro 100 Unit/Ml 3 Ml Vial) 0 unit SUBCUT QIDACHS [facility]; Protocol Last Admin: 12/08/21 07:59 Dose: Not Given Latanoprost (Latanoprost 0.005 % Ophth Kathy 2.5 Ml Drops) 1 drop EYE-RIGHT DAILY@1700 [facility] Last Admin: 12/07/21 23:36 Dose: 1 drop Magnesium Oxide (Magnesium Oxide 400 Mg Tablet) 400 mg PO DAILY [facility] Last Admin: 12/08/21 08:07 Dose: 400 mg Melatonin (Melatonin 3 Mg Tablet) 6 mg PO DAILY@1700 [facility] Non-Formulary Medication (Cholecalciferol (Vitamin D3)) 1,250 mcg PO Q30D [facility] Omeprazole (Omeprazole 40 Mg Capsule.Dr) 40 mg PO BID@0630,1630 [facility] Last Admin: 12/08/21 06:33 Dose: 40 mg Ondansetron HCl (Ondansetron Hcl 4 Mg/2 Ml Vial) 4 mg IVPUSH Q8H PRN PRN Reason: Nausea and Vomiting Pentoxifylline (Pentoxifylline Er 400 Mg Tablet.Er) 400 mg PO BID [facility] Last Admin: 12/08/21 08:07 Dose: 400 mg Pharmacy Consult (Consult Rx Perform Med Rec) 1 each MISCELLANE ONCE PRN PRN Reason: Consult order Sodium Chloride (0.9 % Sodium Chloride Flush 3 Ml Syringe) 3 ml IVFLUSH QSHIFT [facility] Last Admin: 12/08/21 08:09 Dose: 3 ml Sucralfate (Sucralfate 1 Gm Tablet) 1 gm PO TID@0800,1200,1600 [facility] Last Admin: 12/08/21 07:59 Dose: Not Given Sucralfate (Sucralfate 1 Gm Tablet) 1 gm PO BEDTIME [facility] Last Admin: 12/07/21 23:33 Dose: 1 gm Home Medications Medication Instructions Recorded Confirmed Last Taken Type atorvastatin 10 mg tablet 1 tab PO DAILY@1700 02/21/20 12/07/21 Unknown History carvedilol 12.5 mg tablet 1 tab PO BID@0800,1700 02/21/20 12/07/21 Unknown History citalopram 10 mg tablet 1 tab PO DAILY 02/21/20 12/07/21 Unknown History citalopram 20 mg tablet 1 tab PO DAILY 02/21/20 12/07/21 Unknown History furosemide 20 mg tablet 1 tab PO DAILY 02/21/20 12/07/21 Unknown History hydroxyzine HCl 25 mg tablet 25 mg PO DAILY 02/21/20 12/07/21 Unknown History latanoprost 0.005 % eye drops 1 drp ophthalmic-Right DAILY@1700 02/21/20 12/07/21 Unknown History pentoxifylline 400 mg 1 tab PO BID 02/21/20 12/07/21 Unknown History tablet,extended release acetaminophen 500 mg tablet 1,000 mg PO TID@0800,1300,1700 12/07/21 12/07/21 Unknown History calcium carbonate 200 mg calcium 200 mg PO TID@0800,1200,1700 12/07/21 12/07/21 Unknown History (500 mg) chewable tablet (Calcium Antacid) cholecalciferol (vitamin D3) 1,250 1,250 mcg PO QMONTH 12/07/21 12/07/21 Unknown History mcg (50,000 unit) capsule erythromycin 5 mg/gram (0.5 %) eye 1 appl ophthalmic-Left MOTH@0900 12/07/21 12/07/21 Unknown History ointment ferrous sulfate 325 mg (65 mg 325 mg PO DAILY@1700 12/07/21 12/07/21 Unknown History iron) tablet insulin aspart U-100 100 unit/mL See Protocol subcut QIDACHS 12/07/21 12/07/21 Unknown History subcutaneous solution (Novolog U-100 Insulin aspart) insulin detemir U-100 100 unit/mL 100 unit subcut BID@0730,1800 12/07/21 12/07/21 Unknown History subcutaneous solution (Levemir U-100 Insulin) lisinopril 5 mg tablet 1 tab PO DAILY 12/07/21 12/07/21 Unknown History magnesium oxide 400 mg PO DAILY 12/07/21 12/07/21 Unknown History melatonin 5 mg tablet 5 mg PO DAILY@1700 12/07/21 12/07/21 Unknown History sucralfate 1 gram tablet 1 g PO TID@0800,1200,1600 12/07/21 12/07/21 Unknown History sucralfate 1 gram tablet 1 tab PO BEDTIME 12/07/21 12/07/21 Unknown History Physical Exam Vital Signs: Vital Signs: Last Vital Signs Temp 97.3 F 12/07/21 19:50 Pulse 58 12/08/21 07:15 Resp 17 12/08/21 07:15 BP 112/49 L 12/08/21 07:15 Pulse Ox 99 12/08/21 07:15 O2 Del Method 12/08/21 07:15 BMI result Body Mass Index 30.4 Const: General: healthy appearing and no acute distress Nutritional Appearance: obese Orientation/consciousness: patient oriented x3 Limitations: other limitations (Blindness of left eye) HEENT: Head: Yes normal to inspection Ears: hearing grossly normal bilaterally Eyes: Sclerae: sclerae normal Pupils: Equal, round and reactive pupils present Neck: Neck: Yes normal visual inspection Chest: Chest palpation & inspection: normal inspection of the chest Resp: Effort & Inspection: normal respiratory effort Auscultation: clear to auscultation bilaterally Cardio: Palpation: normal PMI Rate: regular rate Rhythm: regular rhythm Heart sounds: S1 normal heart sound present, S2 normal heart sound present and no murmurs GI: Inspection: Yes obesity and Yes visible herniation Palpation (GI): Soft to palpation, Tenderness to palpation present (GI) (mild upper abdominal tenderness without rebound) and No hepatosplenomegaly present Auscultation: normal bowel sounds Rectal Exam - Male: Yes deferred Skin: General skin exam: no rashes or lesions noted Neuro: General: patient oriented x3, gait normal and moves all extremities Cranial nerves: Yes Equal, round and reactive pupils present Psych: Appearance: grossly normal Mental Status: mental status grossly normal Results Labs CBC & Chem 7: 12/10/21 05:13 12/10/21 05:13 Labs: Short CBC 12/07/21 Range/Units 15:48 WBC 5.6 (4.8-10.8) X10*3/uL Hgb 10.8 L (14.0-18.0) g/dl Hct 33.0 L (42.0-52.0) % Plt Count 44 L (160-400) X10*3/uL BMP 12/07/21 12/07/21 15:48 22:23 Sodium 143 144 Potassium 3.5 3.9 Chloride 103 104 Carbon Dioxide 28 28 BUN 12 D 11 Creatinine 1.03 0.94 Calcium 7.4 L 7.4 L Liver Function 12/07/21 12/07/21 Range/Units 15:48 22:23 Total Bilirubin 1.9 H 1.9 H (0.0-1.0) mg/dL AST 183 H 173 H (5-37) U/L ALT 215 H 214 H (0-40) U/L Alkaline Phosphatase 262 H D 271 H (39-117) U/L Albumin 3.8 3.9 (3.5-5.0) g/dL Assessment and Plan (1) Nausea and vomiting: Status: Acute (2) Transaminitis: Status: Acute (3) Abdominal pain: Status: Acute (4) GERD (gastroesophageal reflux disease): Status: Acute Plan 66 YM with paroxysmal AF, CHF, BPH, COPD, insulin-dependent type 2 diabetes, GERD, hypothyroidism, depression, thrombocytopenia secondary to ITP, blindness of the left eye, gout, history of upper GI bleed [place] [facility] on 12/07/21 with nausea, vomiting, decreased p.o. tolerance, and post prandial RUQ/epigastric pain for the past 2.5 to 3 weeks.? 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 Labs showed stable normocytic anemia with HGB/HCT 10.8/33.0%.? Glucose 45 on arrival treated with 1 amp D50 and also given 500 mL NS.? Renal function and electrolyte levels normal.? Total bilirubin 1.9 (baseline).? AST 183, ALT 215, alkaline phosphatase 262 (baseline 28, 17, and 77 respectively). Trop-I 4.5, BNP 88. Lipase 48.? ABD CT SCAN SHOWED: Probable fine micronodular surface of the liver similar to previous exam. No focal parenchymal lesion. No intrahepatic ductal dilatation. Gallbladder is normal in caliber with no visible wall thickening or pericholecystic inflammatory changes. There is some increased attenuation in the dependent gallbladder which may represent sludge.? ABD US SHOWED: Mild hepatic steatosis and Sludge in the gallbladder. No shadowing gallstones. Question mild gallbladder wall edema. Pt's symptoms and elevated LFTs are likely related to biliary obstruction from sludge/small stone RECOMMENDATIONS: 1. Repeat LFTs today - order placed. 2. Agree with proceeding with HIDA scan today Further recommendations to follow after HIDA scan Repeat LFTs show improvement indicating biliary obstruction may be resolving spontaneously.. Procedures Date of Service Date of Service: 12/08/21
--- NOTE | 2021-12-08 11:52 | P.PNIM_ITS ---
Subjective Subjective Date of Service: 12/08/21 Interval History: c/o N/V + RUQ pain no fever Review of Systems Review of Systems: Yes all other systems are reviewed and are negative Physical Exam Vital Signs: Vital Signs: Last Vital Signs Temp 97.3 F 12/07/21 19:50 Pulse 58 12/08/21 07:15 Resp 17 12/08/21 07:15 BP 112/49 L 12/08/21 07:15 Pulse Ox 99 12/08/21 07:15 O2 Del Method 12/08/21 07:15 BMI result Body Mass Index 30.4 Gen: in no acute distress HEENT: L eye blind, moist mucus membranes Neck: supple Lungs: clear to auscultation bilaterally Heart: regular rate and rhythm, no murmurs Abd: soft, RUQ tenderness without rebound/guarding, no Sibley sign, non- distended Ext: no edema Skin: warm/well-perfused Neuro: alert and oriented x3, no focal findings Psych: appropriate affect Objective Data Active Medications Acetaminophen (Acetaminophen 325 Mg Tablet) 650 mg PO Q6H PRN PRN Reason: Pain, Mild (Pain Scale 1-3) Atorvastatin Calcium (Atorvastatin Calcium 10 Mg Tablet) 10 mg PO DAILY@1700 [facility] Last Admin: 12/07/21 23:33 Dose: 10 mg Documented By: YARELI Calcium Carbonate (Calcium Carbonate 750 Mg Tab.Chew) 750 mg PO TID@0800,1200,1700 [facility] Last Admin: 12/08/21 07:59 Dose: Not Given Documented By: SHELLEY Non-Admin Reason: NPO Dextrose (Dextrose 50 % 25 Gm/50 Ml Syringe) 25 gm IVPUSH Q15M PRN; Protocol PRN Reason: per Hypoglycemia Standing Ord. Enoxaparin Sodium (Enoxaparin Sodium 40 Mg/0.4 Ml Syringe) 40 mg SUBCUT Q24H [facility] Last Admin: 12/07/21 23:32 Dose: 40 mg Documented By: YARELI Erythromycin (Erythromycin Base 0.5% Oph Oin 1 Gm Tube) 1 cm EYE-LEFT MOTH@0900 [facility] Last Admin: 12/08/21 08:07 Dose: 1 cm Documented By: JACE Escitalopram Oxalate (Escitalopram Oxalate 10 Mg Tablet) 15 mg PO DAILY [facility] Last Admin: 12/08/21 08:05 Dose: 15 mg Documented By: JACE Ferrous Sulfate (Ferrous Sulfate 324 Mg Tablet.) 324 mg PO DAILY@1700 [facility] Furosemide (Furosemide 20 Mg Tablet) 20 mg PO DAILY [facility]; Protocol Last Admin: 12/08/21 08:05 Dose: 20 mg Documented By: JACE Glucose (Glucose Gel 15 Gm Gel..Gram.) 15 gm PO Q15M PRN; Protocol PRN Reason: per Hypoglycemia Standing Ord. Hydroxyzine HCl (Hydroxyzine Hcl 25 Mg Tablet) 25 mg PO DAILY [facility] Last Admin: 12/08/21 08:07 Dose: 25 mg Documented By: JACE Lactated Ringer's (Lr) 1,000 mls @ 50 mls/hr IVCONT .Q20H [facility] Last Admin: 12/07/21 23:32 Dose: 50 mls/hr Documented By: YARELI Insulin Glargine (Insulin Glargine,Hum.Rec.Anlog 100 Unit/Ml 10 Ml Vial) 35 unit SUBCUT BID@0730,1800 [facility] Last Admin: 12/08/21 08:19 Dose: Not Given Documented By: JACE Non-Admin Reason: Patient Refused Insulin Human Lispro (Insulin Lispro 100 Unit/Ml 3 Ml Vial) 0 unit SUBCUT QIDACHS [facility]; Protocol Last Admin: 12/08/21 07:59 Dose: Not Given Documented By: SHELLEY Non-Admin Reason: No Insulin Coverage Latanoprost (Latanoprost 0.005 % Ophth Kathy 2.5 Ml Drops) 1 drop EYE-RIGHT DAILY@1700 [facility] Last Admin: 12/07/21 23:36 Dose: 1 drop Documented By: YARELI Magnesium Oxide (Magnesium Oxide 400 Mg Tablet) 400 mg PO DAILY [facility] Last Admin: 12/08/21 08:07 Dose: 400 mg Documented By: JACE Melatonin (Melatonin 3 Mg Tablet) 6 mg PO DAILY@1700 [facility] Non-Formulary Medication (Cholecalciferol (Vitamin D3)) 1,250 mcg PO Q30D [facility] Omeprazole (Omeprazole 40 Mg Capsule.) 40 mg PO BID@0630,1630 [facility] Last Admin: 12/08/21 06:33 Dose: 40 mg Documented By: YARELI Ondansetron HCl (Ondansetron Hcl 4 Mg/2 Ml Vial) 4 mg IVPUSH Q8H PRN PRN Reason: Nausea and Vomiting Pentoxifylline (Pentoxifylline Er 400 Mg Tablet.Er) 400 mg PO BID [facility] Last Admin: 12/08/21 08:07 Dose: 400 mg Documented By: JACE Pharmacy Consult (Consult Rx Perform Med Rec) 1 each MISCELLANE ONCE PRN PRN Reason: Consult order Sodium Chloride (0.9 % Sodium Chloride Flush 3 Ml Syringe) 3 ml IVFLUSH QSHIFT [facility] Last Admin: 12/08/21 08:09 Dose: 3 ml Documented By: JACE Sucralfate (Sucralfate 1 Gm Tablet) 1 gm PO TID@0800,1200,1600 [facility] Last Admin: 12/08/21 07:59 Dose: Not Given Documented By: SHELLEY Non-Admin Reason: NPO Sucralfate (Sucralfate 1 Gm Tablet) 1 gm PO BEDTIME [facility] Last Admin: 12/07/21 23:33 Dose: 1 gm Documented By: YARELI Labs CBC & Chem 7: 12/07/21 15:48 12/07/21 22:23 Labs: Laboratory Results - last 24 hr 12/07/21 12/07/21 12/07/21 15:44 15:48 15:48 MCV 90.9 MCH 29.8 MCHC 32.7 RDW 15.6 Plt Count 44 L MPV 13.5 H Immature Gran % (Auto) 0.9 H Neut % (Auto) 62.0 Lymph % (Auto) 19.2 L [place] % (Auto) 9.9 Eos % (Auto) 6.9 H Baso % (Auto) 1.1 Lymph # (Auto) 1.1 L [place] # (Auto) 0.6 Eos # (Auto) 0.4 Baso # (Auto) 0.1 Abs Immat Gran (auto) 0.05 H Absolute Neuts (auto) 3.5 Absolute Nucleated RBC 0.000 Nucleated RBC % (auto) 0.0 Smear Tech's Comments VERIFIED PT INR Anion Gap 16 Estim Creat Clear Calc 84.8 Estimated GFR > 60 POC Glucose Random Glucose 109 D Calcium 7.4 L Total Bilirubin 1.9 H AST 183 H ALT 215 H Alkaline Phosphatase 262 H D Troponin I High Sens B-Natriuretic Peptide Total Protein 7.1 Albumin 3.8 Lipase 48 COVID-19 ([facility]) Negative COVID-19 Clin Com See Note Hep Bs Antigen Hep Bs Antibody Hep B Core Total Ab Hepatitis C Ab (EIA) 12/07/21 12/07/21 12/07/21 15:48 15:48 18:10 MCV MCH MCHC RDW Plt Count MPV Immature Gran % (Auto) Neut % (Auto) Lymph % (Auto) [place] % (Auto) Eos % (Auto) Baso % (Auto) Lymph # (Auto) [place] # (Auto) Eos # (Auto) Baso # (Auto) Abs Immat Gran (auto) Absolute Neuts (auto) Absolute Nucleated RBC Nucleated RBC % (auto) Smear Tech's Comments PT 13.7 H INR 1.2 H Anion Gap Estim Creat Clear Calc Estimated GFR POC Glucose 45 L* Random Glucose Calcium Total Bilirubin AST ALT Alkaline Phosphatase Troponin I High Sens 4.5 B-Natriuretic Peptide 88 Total Protein Albumin Lipase COVID-19 ([facility]) COVID-19 Clin Com Hep Bs Antigen Hep Bs Antibody Hep B Core Total Ab Hepatitis C Ab (EIA) 12/07/21 12/07/21 12/07/21 19:49 22:23 22:23 MCV MCH MCHC RDW Plt Count MPV Immature Gran % (Auto) Neut % (Auto) Lymph % (Auto) [place] % (Auto) Eos % (Auto) Baso % (Auto) Lymph # (Auto) [place] # (Auto) Eos # (Auto) Baso # (Auto) Abs Immat Gran (auto) Absolute Neuts (auto) Absolute Nucleated RBC Nucleated RBC % (auto) Smear Tech's Comments PT INR Anion Gap 16 Estim Creat Clear Calc 92.9 Estimated GFR > 60 POC Glucose 128 H Random Glucose 113 Calcium 7.4 L Total Bilirubin 1.9 H AST 173 H ALT 214 H Alkaline Phosphatase 271 H Troponin I High Sens B-Natriuretic Peptide Total Protein 7.2 Albumin 3.9 Lipase COVID-19 ([facility]) COVID-19 Clin Com Hep Bs Antigen Negative Hep Bs Antibody NONREACTIVE Hep B Core Total Ab Nonreactive Hepatitis C Ab (EIA) Nonreactive 12/08/21 07:04 MCV MCH MCHC RDW Plt Count MPV Immature Gran % (Auto) Neut % (Auto) Lymph % (Auto) [place] % (Auto) Eos % (Auto) Baso % (Auto) Lymph # (Auto) [place] # (Auto) Eos # (Auto) Baso # (Auto) Abs Immat Gran (auto) Absolute Neuts (auto) Absolute Nucleated RBC Nucleated RBC % (auto) Smear Tech's Comments PT INR Anion Gap Estim Creat Clear Calc Estimated GFR POC Glucose 118 H Random Glucose Calcium Total Bilirubin AST ALT Alkaline Phosphatase Troponin I High Sens B-Natriuretic Peptide Total Protein Albumin Lipase COVID-19 ([facility]) COVID-19 Clin Com Hep Bs Antigen Hep Bs Antibody Hep B Core Total Ab Hepatitis C Ab (EIA) Assessment and Plan (1) Transaminitis: Status: Acute (2) Nausea and vomiting: Status: Acute Plan d#2 66yo M long-term resident of [facility] with paroxysmal AF not on AC due to hx upper GI, CHF, BPH, COPD, DM2, GERD, hypothyroidism, depression, ITP, PAD, L eye blindness, gout presenting with subacute nausea/vomiting, found to have transminasemia, GB sludge, possible GB wall edema # transaminasemia # N/V - HIDA scan pending, GI consult pending, monitor LFTs, chronic HBV/HCV serologies negative # DM2 with hypoglycemia due to poor PO intake - hypoglycemia resolved - basal/bolus insulin # HTN - holding carvedilol + lisinopril for soft BP + bradycardia # pAF - holding carvedilol due to bradycardia + soft BP - not on AC due to GI bleeding in past # CHF unspecified - continue furosemide # HLD - continue statin # hypothyroidism - continue LT4 # depression -continue escitalopram # chronic normocytic anemia-stable -continue ferrous sulfate # ITP - platelets low but stable- monitor # PAD - continue pentoxifylline # GERD - continue PPI + sucralfate # VTE ppx: LMWH In my clinical judgment, the patient requires continued hospitalization for the following reasons: workup of possible cholecystitis Quality Stroke Does the patient have a stroke diagnosis?: No VTE Prior VTE?: No VTE Risk Level:: Medical - moderate - high VTE Device Contraindication: Treatment Not Indicated VTE Drug Contraindication: N/A - Med Ordered
--- NOTE | 2021-12-08 12:03 | PC.NURSE ---
pt off unit for HIDA scan
[2021-12-08 12:04] VITALS: BP 122/46; PULSE 64; RESP 20; O2SAT 98
--- NOTE | 2021-12-08 14:34 | MHC.CM.PN ---
Attempted to meet with patient in regards to discharge planning. 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 Spoke with patient's brother/HCP, Father Parent. Anticipate patient will return to [facility] via BLS when medically stable. Patient received 5 Pfrizer vaccines. Obs notice explained and left bedside. Father Parent is requesting a telephone call when patient is discharged back to [facility]. Copy of HCP obtained from [facility]. Continue to monitor for d/c needs.
[2021-12-08 15:05] LABS: Alanine Aminotransferase 166 U/L (0-40); Albumin Level 3.6 g/dL (3.5-5.0); Alkaline Phosphatase 253 U/L (39-117); Aspartate Amino Transferase 130 U/L (5-37); Bilirubin Direct 1.1 mg/dL (0.0-0.5); C Reactive Protein 1.58 mg/dL (< or = 0.50); Total Protein 6.8 g/dL (6.5-8.0)
[2021-12-08 15:11] LABS: Glucose, Whole Blood 142 mg/dL (60-115)
[2021-12-08 18:08] VITALS: BP 132/54; PULSE 61; RESP 18; TEMP 37.1; O2SAT 98
[2021-12-08] MEDS: Calcium Carbonate 750 MG TAB.CHEW PO (18:10)
[2021-12-08] MEDS: Atorvastatin Calcium 10 MG TABLET PO (18:11)
[2021-12-08] MEDS: Ferrous Sulfate 324 MG TABLET.DR PO (18:11)
[2021-12-08] MEDS: Latanoprost 0.005 % Ophth Sol 2.5 ML DROPS 1 DROP EYE-RIGHT (18:12)
[2021-12-08] MEDS: Melatonin 3 MG TABLET 6 MG PO (18:13)
[2021-12-08 19:00] LABS: Glucose, Whole Blood 131 mg/dL (60-115)
--- NOTE | 2021-12-08 19:12 | PC.NURSE ---
Assumed care of patient at 1900. Pt sitting up on stretcher eating dinner. Clear liquid diet. IV fluids running. Pt refusing insulin lantus, says he has not been giving it to himself because his sugars have been low. Monitoring sugars here in ED. No current complaints.
[2021-12-08] MEDS: Sucralfate 1 GM TABLET PO (21:54)
[2021-12-08] MEDS: Enoxaparin Sodium 40 MG/0.4 ML SYRINGE SUBCUT (21:54)
--- NOTE | 2021-12-08 22:04 | PC.NURSE ---
pharmacy bringing Trental 400mg medicaiton
--- NOTE | 2021-12-08 22:14 | PC.NURSE ---
pt sitting up in recliner comfortably
[2021-12-09 00:02] VITALS: BP 158/67; PULSE 84; RESP 16; TEMP 36.3; O2SAT 98
[2021-12-09] MEDS: Lactated Ringers 1,000 ML 50 ML IVCONT (00:07)
--- NOTE | 2021-12-09 02:46 | PC.NURSE ---
Assumed care of patient at 2300. Patient alert and oriented x3. L/s diminished bases, vss, offers no complaints at this time. Patient back to bed from recliner with 2 assist, call nelson within reach.
--- NOTE | 2021-12-09 03:36 | PC.NURSE ---
Resumed care of patient at 0300. Per previous RN, IV infiltrated and was removed. RN states she tried to place new one but patient refused and says he would just like to sleep at this time. Will reattempt new IV site in AM per pt request.
--- NOTE | 2021-12-09 06:23 | PC.NURSE ---
iv placed #[id number] R Wrist
[2021-12-09] MEDS: Omeprazole 40 MG CAPSULE.DR PO ×2 (06:31→16:04)
[2021-12-09 07:13] VITALS: BP 129/57; PULSE 68; RESP 18; O2SAT 96
[2021-12-09 07:15] LABS: Glucose, Whole Blood 134 mg/dL (60-115)
[2021-12-09 07:23] LABS: Alanine Aminotransferase 142 U/L (0-40); Albumin Level 3.9 g/dL (3.5-5.0); Alkaline Phosphatase 245 U/L (39-117); Anion Gap 18 (12-20); Aspartate Amino Transferase 102 U/L (5-37); Blood Urea Nitrogen 11 mg/dL (9-16); Calcium 7.6 mg/dL (8.4-10.2); Carbon Dioxide 27 mmol/L (22-29); Chloride 100 mmol/L (96-108); Creatinine Clr Calc Pharmacy 88.2; Estimated Glomerular Filt Rate > 60; Glucose Random 143 mg/dL (60-115); Potassium 3.9 mmol/L (3.3-5.1); Sodium 141 mmol/L (135-145); Total Protein 7.3 g/dL (6.5-8.0)
[2021-12-09 07:25] LABS: Hematocrit 35.9 % (42.0-52.0); Hemoglobin 11.7 g/dl (14.0-18.0); Mean Corpuscular HGB Conc 32.6 g/dl (31.0-36.0); Mean Corpuscular Hemoglobin 30.2 pg (27.0-33.0); Mean Corpuscular Volume 92.8 fL (80.0-98.0); Mean Platelet Volume 14.3 fL (9.4-12.4); Red Blood Count 3.87 X10*6/uL (4.60-5.80); Red Cell Distribution Width 15.7 % (11.0-16.0); White Blood Count 6.5 X10*3/uL (4.8-10.8)
[2021-12-09 07:28] LABS: Platelet Count 49 X10*3/uL (160-400)
[2021-12-09 07:47] LABS: Hepatitis A Antibody IgM 0.16 Index (0-0.79); ~Hepatitis A Antibody IgM Nonreactive (Nonreactive)
[2021-12-09 07:49] LABS: Hepatitis A Antibody IgM 0.19 Index (0-0.79); ~Hepatitis A Antibody IgM Nonreactive (Nonreactive)
[2021-12-09] MEDS: Escitalopram Oxalate 10 MG TABLET 15 MG PO (08:08)
[2021-12-09] MEDS: Pentoxifylline ER 400 MG TABLET.ER PO ×2 (08:08→21:03)
[2021-12-09] MEDS: Sucralfate 1 GM TABLET PO ×3 (08:08→21:03)
[2021-12-09] MEDS: Magnesium Oxide 400 MG TABLET PO (08:09)
[2021-12-09] MEDS: Furosemide 20 MG TABLET PO (08:09)
[2021-12-09] MEDS: Calcium Carbonate 750 MG TAB.CHEW PO ×3 (08:09→16:04)
[2021-12-09] MEDS: hydrOXYzine HCL 25 MG TABLET PO (08:09)
[2021-12-09 10:46] VITALS: BP 140/59; PULSE 58; RESP 16; O2SAT 98
[2021-12-09 12:57] LABS: Glucose, Whole Blood 132 mg/dL (60-115)
--- NOTE | 2021-12-09 13:54 | P.CONGS_ITS ---
History of Present Illness Consult details Consult date: 12/09/21 Requesting physician: Boris Paris Narrative: 66-year-old male patient presenting to the emergency department with complaints of nausea and vomiting with abdominal pain in the upper midline. 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 The symptoms began after eating pizza approximately 1.5 weeks ago. He denies a previous history of similar symptoms. Laboratories revealed normal WBC but persistently elevated liver functions with an elevated bilirubin which was 1st identified in April 2021. CT abdomen and pelvis revealed a normal appearing gallbladder with no wall thickening or pericholecystic fluid. There is a possibility of sludge within the gallbladder. Ultrasound the abdomen revealed a negative Sibley sign. Sludge was identified within the gallbladder but no wall thickening was appreciated. The common bile duct could not be identified. HIDA scan revealed a delayed filling of the gallbladder after 3-1/2 hours suggestive of chronic cholecystitis. The patient currently feels well with no abdominal pain and reports that he is hungry. He denies any nausea or vomiting since coming to the hospital. Review of Systems Review of Systems: Yes all other systems are reviewed and are negative Eyes: Eyes: Reports as per HPI Respiratory: Respiratory: Denies cough, Denies hemoptysis and Denies pain on inspiration Gastrointestinal: Gastrointestinal: Reports as per HPI, Denies abdominal pain, Denies constipation, Reports heartburn, Denies diarrhea, Reports nausea and Reports vomiting PMFSH Past Medical History Medical History Atrial fibrillation Blindness of left eye BPH (benign prostatic hyperplasia) CHF (congestive heart failure) COPD (chronic obstructive pulmonary disease) Diabetes Diverticulosis GERD (gastroesophageal reflux disease) Hypothyroid Major depression Osteoarthritis 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 Strain of left knee Thrombocytopenia Family History Family History Maternal Grandmother Diabetes Mother Diabetes Social History Social History Household Members: Other Housing: Care Home Alcohol intake: current Alcohol intake frequency: holidays/special occasions only Patient Tobacco Use Status: Former Tobacco user Smoked in Last 30 Days: No Use of substances other than those prescribed or required for medical reasons: No Advance Directives: No Advance Directives Information Provided: Yes Advance Directives Date on File: 02/20/20 service: No Current occupational status: retired Meds Allergies Allergy/AdvReac Type Severity Reaction Status Date / Time colchicine Allergy Unknown diarrhea Verified 02/20/20 12:43 Active Medications: Current Medications Acetaminophen (Acetaminophen 325 Mg Tablet) 650 mg PO Q6H PRN PRN Reason: Pain, Mild (Pain Scale 1-3) Atorvastatin Calcium (Atorvastatin Calcium 10 Mg Tablet) 10 mg PO DAILY@1700 [facility] Last Admin: 12/08/21 18:11 Dose: 10 mg Calcium Carbonate (Calcium Carbonate 750 Mg Tab.Chew) 750 mg PO TID @0800,1200,1700 [facility] Last Admin: 12/09/21 08:09 Dose: 750 mg Dextrose (Dextrose 50 % 25 Gm/50 Ml Syringe) 25 gm IVPUSH Q15M PRN; Protocol PRN Reason: per Hypoglycemia Standing Ord. Enoxaparin Sodium (Enoxaparin Sodium 40 Mg/0.4 Ml Syringe) 40 mg SUBCUT Q24H [facility] Last Admin: 12/08/21 21:54 Dose: 40 mg Erythromycin (Erythromycin Base 0.5% Oph Oin 1 Gm Tube) 1 cm EYE-LEFT MOTH@0900 [facility] Last Admin: 12/08/21 08:07 Dose: 1 cm Escitalopram Oxalate (Escitalopram Oxalate 10 Mg Tablet) 15 mg PO DAILY [facility] Last Admin: 12/09/21 08:08 Dose: 15 mg Ferrous Sulfate (Ferrous Sulfate 324 Mg Tablet.Dr) 324 mg PO DAILY@1700 [facility] Last Admin: 12/08/21 18:11 Dose: 324 mg Furosemide (Furosemide 20 Mg Tablet) 20 mg PO DAILY [facility]; Protocol Last Admin: 12/09/21 08:09 Dose: 20 mg Glucose (Glucose Gel 15 Gm Gel..Gram.) 15 gm PO Q15M PRN; Protocol PRN Reason: per Hypoglycemia Standing Ord. Hydroxyzine HCl (Hydroxyzine Hcl 25 Mg Tablet) 25 mg PO DAILY [facility] Last Admin: 12/09/21 08:09 Dose: 25 mg Lactated Ringer's (Lr) 1,000 mls @ 50 mls/hr IVCONT .Q20H [facility] Last Admin: 12/09/21 00:07 Dose: 50 mls/hr Insulin Glargine (Insulin Glargine,Hum.Rec.Anlog 100 Unit/Ml 10 Ml Vial) 35 unit SUBCUT BID@0730,1800 [facility] Last Admin: 12/09/21 07:59 Dose: Not Given Insulin Human Lispro (Insulin Lispro 100 Unit/Ml 3 Ml Vial) 0 unit SUBCUT QIDACHS [facility]; Protocol Last Admin: 12/09/21 13:48 Dose: Not Given Latanoprost (Latanoprost 0.005 % Ophth Kathy 2.5 Ml Drops) 1 drop EYE-RIGHT DAILY@1700 [facility] Last Admin: 12/08/21 18:12 Dose: 1 drop Loperamide HCl (Loperamide Hcl 2 Mg Capsule) 2 mg PO Q4H PRN PRN Reason: diarrhoea Magnesium Oxide (Magnesium Oxide 400 Mg Tablet) 400 mg PO DAILY [facility] Last Admin: 12/09/21 08:09 Dose: 400 mg Melatonin (Melatonin 3 Mg Tablet) 6 mg PO DAILY@1700 [facility] Last Admin: 12/08/21 18:13 Dose: 6 mg Omeprazole (Omeprazole 40 Mg Capsule.Dr) 40 mg PO BID@0630,1630 [facility] Last Admin: 12/09/21 06:31 Dose: 40 mg Ondansetron HCl (Ondansetron Hcl 4 Mg/2 Ml Vial) 4 mg IVPUSH Q8H PRN PRN Reason: Nausea and Vomiting Pentoxifylline (Pentoxifylline Er 400 Mg Tablet.Er) 400 mg PO BID [facility] Last Admin: 12/09/21 08:08 Dose: 400 mg Pharmacy Consult (Consult Rx Perform Med Rec) 1 each MISCELLANE ONCE PRN PRN Reason: Consult order Sodium Chloride (0.9 % Sodium Chloride Flush 3 Ml Syringe) 3 ml IVFLUSH QSHIFT [facility] Last Admin: 12/09/21 07:59 Dose: Not Given Sucralfate (Sucralfate 1 Gm Tablet) 1 gm PO TID@0800,1200,1600 [facility] Last Admin: 12/09/21 08:08 Dose: 1 gm Sucralfate (Sucralfate 1 Gm Tablet) 1 gm PO BEDTIME [facility] Last Admin: 12/08/21 21:54 Dose: 1 gm Home Medications Medication Instructions Recorded Confirmed Last Taken Type atorvastatin 10 mg tablet 1 tab PO DAILY@1700 02/21/20 12/07/21 Unknown History carvedilol 12.5 mg tablet 1 tab PO BID@0800,1700 02/21/20 12/07/21 Unknown History citalopram 10 mg tablet 1 tab PO DAILY 02/21/20 12/07/21 Unknown History citalopram 20 mg tablet 1 tab PO DAILY 02/21/20 12/07/21 Unknown History furosemide 20 mg tablet 1 tab PO DAILY 02/21/20 12/07/21 Unknown History hydroxyzine HCl 25 mg tablet 25 mg PO DAILY 02/21/20 12/07/21 Unknown History latanoprost 0.005 % eye drops 1 drp ophthalmic-Right DAILY@1700 02/21/20 12/07/21 Unknown History pentoxifylline 400 mg 1 tab PO BID 02/21/20 12/07/21 Unknown History tablet,extended release acetaminophen 500 mg tablet 1,000 mg PO TID@0800,1300,1700 12/07/21 12/07/21 Unknown History calcium carbonate 200 mg calcium 200 mg PO TID@0800,1200,1700 12/07/21 12/07/21 Unknown History (500 mg) chewable tablet (Calcium Antacid) cholecalciferol (vitamin D3) 1,250 1,250 mcg PO QMONTH 12/07/21 12/07/21 Unknown History mcg (50,000 unit) capsule erythromycin 5 mg/gram (0.5 %) eye 1 appl ophthalmic-Left MOTH@0900 12/07/21 12/07/21 Unknown History ointment ferrous sulfate 325 mg (65 mg 325 mg PO DAILY@1700 12/07/21 12/07/21 Unknown History iron) tablet insulin aspart U-100 100 unit/mL See Protocol subcut QIDACHS 12/07/21 12/07/21 Unknown History subcutaneous solution (Novolog U-100 Insulin aspart) insulin detemir U-100 100 unit/mL 100 unit subcut BID@0730,1800 12/07/2112/07 Unknown History subcutaneous solution (Levemir U-100 Insulin) lisinopril 5 mg tablet 1 tab PO DAILY 12/07/21 12/07/21 Unknown History magnesium oxide 400 mg PO DAILY 12/07/21 12/07/21 Unknown History melatonin 5 mg tablet 5 mg PO DAILY@1700 12/07/21 12/07/21 Unknown History sucralfate 1 gram tablet 1 g PO TID@0800,1200,1600 12/07/21 12/07/21 Unknown History sucralfate 1 gram tablet 1 tab PO BEDTIME 12/07/21 12/07/21 Unknown History Physical Exam Vital Signs: Vital Signs: Last Vital Signs Temp 97.4 F 12/09/21 00:02 Pulse 58 12/09/21 10:46 Resp 16 12/09/21 10:46 BP 140/59 H 12/09/21 10:46 Pulse Ox 98 12/09/21 10:46 O2 Del Method 12/09/21 10:46 BMI result Body Mass Index 30.4 Const: General: no acute distress Nutritional Appearance: obese Orientation/consciousness: patient oriented x3 HEENT: Head: Yes normocephalic and Yes atraumatic Ears: hearing grossly normal bilaterally Eyes: Corneas: corneas abnormal (Cloudy left eye) Neck: Neck: Yes no lymphadenopathy Resp: Effort & Inspection: normal respiratory effort, no audible wheezes, no cough and no respiratory distress Auscultation: clear to auscultation bilaterally GI: Inspection: Yes normal to inspection Palpation (GI): Soft to palpation, nontender, no guarding, no hepatomegaly, Hernia present and no masses Percussion: Yes normal to percussion Auscultation: normal bowel sounds Rectal Exam - Male: Yes deferred Skin: Other: Warm, dry, normal color Neuro: General: patient oriented x3 Extrem: General: Yes no clubbing, cyanosis or edema Results Labs Result diagrams: 12/09/21 06:04 12/09/21 06:04 Labs: Abnormal lab results 12/08/21 12/08/21 12/08/21 Range/Units 14:34 15:05 18:56 RBC (4.60-5.80) X10*6/uL Hgb (14.0-18.0) g/dl Hct (42.0-52.0) % Plt Count (160-400) X10*3/uL MPV (9.4-12.4) fL POC Glucose 142 H 131 H (60-115) mg/dL Random Glucose (60-115) mg/dL Calcium (8.4-10.2) mg/dL Total Bilirubin 2.0 H (0.0-1.0) mg/dL Direct Bilirubin 1.1 H (0.0-0.5) mg/dL AST 130 H (5-37) U/L ALT 166 H (0-40) U/L Alkaline Phosphatase 253 H (39-117) U/L C-Reactive Protein 1.58 H (< or = 0.50) mg/dL 12/09/21 12/09/21 12/09/21 Range/Units 06:04 06:04 07:03 RBC 3.87 L (4.60-5.80) X10*6/uL Hgb 11.7 L (14.0-18.0) g/dl Hct 35.9 L (42.0-52.0) % Plt Count 49 L (160-400) X10*3/uL MPV 14.3 H (9.4-12.4) fL POC Glucose 134 H (60-115) mg/dL Random Glucose 143 H (60-115) mg/dL Calcium 7.6 L (8.4-10.2) mg/dL Total Bilirubin 2.0 H (0.0-1.0) mg/dL Direct Bilirubin (0.0-0.5) mg/dL AST 102 H (5-37) U/L ALT 142 H (0-40) U/L Alkaline Phosphatase 245 H (39-117) U/L C-Reactive Protein (< or = 0.50) mg/dL 12/09/21 Range/Units 12:46 RBC (4.60-5.80) X10*6/uL Hgb (14.0-18.0) g/dl Hct (42.0-52.0) % Plt Count (160-400) X10*3/uL MPV (9.4-12.4) fL POC Glucose 132 H (60-115) mg/dL Random Glucose (60-115) mg/dL Calcium (8.4-10.2) mg/dL Total Bilirubin (0.0-1.0) mg/dL Direct Bilirubin (0.0-0.5) mg/dL AST (5-37) U/L ALT (0-40) U/L Alkaline Phosphatase (39-117) U/L C-Reactive Protein (< or = 0.50) mg/dL Short CBC 12/09/21 Range/Units 06:04 WBC 6.5 (4.8-10.8) X10*3/uL Hgb 11.7 L (14.0-18.0) g/dl Hct 35.9 L (42.0-52.0) % Plt Count 49 L (160-400) X10*3/uL BMP 12/09/21 06:04 Sodium 141 Potassium 3.9 Chloride 100 Carbon Dioxide 27 BUN 11 Creatinine 0.99 Calcium 7.6 L Liver Function 12/08/21 12/09/21 Range/Units 14:34 06:04 Total Bilirubin 2.0 H 2.0 H (0.0-1.0) mg/dL Direct Bilirubin 1.1 H (0.0-0.5) mg/dL AST 130 H 102 H (5-37) U/L ALT 166 H 142 H (0-40) U/L Alkaline Phosphatase 253 H 245 H (39-117) U/L Albumin 3.6 3.9 (3.5-5.0) g/dL All other labs normal. Imaging Abdomen CT scan report/results: image reviewed Abdominal ultrasound report/results: image reviewed Assessment and Plan (1) Transaminitis: Status: Acute (2) Nausea and vomiting: Status: Acute (3) Abdominal pain: Status: Acute Plan 66-year-old male patient with multiple medical problems presenting with nausea and vomiting found to have sludge within the gallbladder with the possibility of wall edema noted on ultrasound. No secondary evidence of acute cholecystitis including pericholecystic fluid, wall thickening, or ductal dilatation. Patient has had chronically elevated liver function tests including elevated bilirubin since April 2021. Findings may be consistent with chronic cholecystitis although with the patient's multiple medical problems, the risks of surgery may far outweigh any benefit. Recommend non operative management with diet restrictions including maintaining a low-fat diet. Discussed with the patient's family as well the agree avoiding surgery would be best. Procedures Date of Service Date of Service: 12/09/21
--- NOTE | 2021-12-09 13:57 | HO.PM.IMPN ---
Subjective Subjective Date of Service: 12/09/21 Interval History: Nausea improved, RUQ pain improved though still operator batch or continuous there Review of Systems Review of Systems: Yes all other systems are reviewed and are negative Physical Exam Vital Signs: Vital Signs: Last Vital Signs Temp 97.4 F 12/09/21 00:02 Pulse 58 12/09/21 10:46 Resp 16 12/09/21 10:46 BP 140/59 H 12/09/21 10:46 Pulse Ox 98 12/09/21 10:46 O2 Del Method 12/09/21 10:46 BMI result Body Mass Index 30.4 Gen: in no acute distress HEENT: L eye blind, moist mucus membranes Neck: supple Lungs: clear to auscultation bilaterally Heart: regular rate and rhythm, no murmurs Abd: soft, RUQ tenderness without rebound/guarding, no Sibley sign, non-distended Ext: no edema Skin: warm/well-perfused Neuro: alert and oriented x3, no focal findings Psych: appropriate affect Objective Data Active Medications Acetaminophen (Acetaminophen 325 Mg Tablet) 650 mg PO Q6H PRN PRN Reason: Pain, Mild (Pain Scale 1-3) Atorvastatin Calcium (Atorvastatin Calcium 10 Mg Tablet) 10 mg PO DAILY@1700 [facility] Last Admin: 12/08/21 18:11 Dose: 10 mg Documented By: JACE Calcium Carbonate (Calcium Carbonate 750 Mg Tab.Chew) 750 mg PO TID@0800,1200,1700 [facility] Last Admin: 12/09/21 08:09 Dose: 750 mg Documented By: JENY Dextrose (Dextrose 50 % 25 Gm/50 Ml Syringe) 25 gm IVPUSH Q15M PRN; Protocol PRN Reason: per Hypoglycemia Standing Ord. Enoxaparin Sodium (Enoxaparin Sodium 40 Mg/0.4 Ml Syringe) 40 mg SUBCUT Q24H [facility] Last Admin: 12/08/21 21:54 Dose: 40 mg Documented By: REJI Erythromycin (Erythromycin Base 0.5% Oph Oin 1 Gm Tube) 1 cm EYE-LEFT MOTH@0900 [facility] Last Admin: 12/08/21 08:07 Dose: 1 cm Documented By: JACE Escitalopram Oxalate (Escitalopram Oxalate 10 Mg Tablet) 15 mg PO DAILY [facility] Last Admin: 12/09/21 08:08 Dose: 15 mg Documented By: JENY Ferrous Sulfate (Ferrous Sulfate 324 Mg Tablet.) 324 mg PO DAILY@1700 [facility] Last Admin: 12/08/21 18:11 Dose: 324 mg Documented By: JACE Furosemide (Furosemide 20 Mg Tablet) 20 mg PO DAILY [facility]; Protocol Last Admin: 12/09/21 08:09 Dose: 20 mg Documented By: JENY Glucose (Glucose Gel 15 Gm Gel..Gram.) 15 gm PO Q15M PRN; Protocol PRN Reason: per Hypoglycemia Standing Ord. Hydroxyzine HCl (Hydroxyzine Hcl 25 Mg Tablet) 25 mg PO DAILY [facility] Last Admin: 12/09/21 08:09 Dose: 25 mg Documented By: JENY Lactated Ringer's (Lr) 1,000 mls @ 50 mls/hr IVCONT .Q20H [facility] Last Admin: 12/09/21 00:07 Dose: 50 mls/hr Documented By: RAMONA Insulin Glargine (Insulin Glargine,Hum.Rec.Anlog 100 Unit/Ml 10 Ml Vial) 35 unit SUBCUT BID@0730,1800 [facility] Last Admin: 12/09/21 07:59 Dose: Not Given Documented By: JENY Non-Admin Reason: Patient Refused Insulin Human Lispro (Insulin Lispro 100 Unit/Ml 3 Ml Vial) 0 unit SUBCUT QIDACHS [facility]; Protocol Last Admin: 12/09/21 13:48 Dose: Not Given Documented By: JENY Non-Admin Reason: No Insulin Coverage Latanoprost (Latanoprost 0.005 % Ophth Kathy 2.5 Ml Drops) 1 drop EYE-RIGHT DAILY@1700 [facility] Last Admin: 12/08/21 18:12 Dose: 1 drop Documented By: JACE Loperamide HCl (Loperamide Hcl 2 Mg Capsule) 2 mg PO Q4H PRN PRN Reason: diarrhoea Magnesium Oxide (Magnesium Oxide 400 Mg Tablet) 400 mg PO DAILY [facility] Last Admin: 12/09/21 08:09 Dose: 400 mg Documented By: JENY Melatonin (Melatonin 3 Mg Tablet) 6 mg PO DAILY@1700 [facility] Last Admin: 12/08/21 18:13 Dose: 6 mg Documented By: JACE Omeprazole (Omeprazole 40 Mg Capsule.) 40 mg PO BID@0630,1630 [facility] Last Admin: 12/09/21 06:31 Dose: 40 mg Documented By: REJI Ondansetron HCl (Ondansetron Hcl 4 Mg/2 Ml Vial) 4 mg IVPUSH Q8H PRN PRN Reason: Nausea and Vomiting Pentoxifylline (Pentoxifylline Er 400 Mg Tablet.Er) 400 mg PO BID [facility] Last Admin: 12/09/21 08:08 Dose: 400 mg Documented By: JENY Pharmacy Consult (Consult Rx Perform Med Rec) 1 each MISCELLANE ONCE PRN PRN Reason: Consult order Sodium Chloride (0.9 % Sodium Chloride Flush 3 Ml Syringe) 3 ml IVFLUSH QSHIFT [facility] Last Admin: 12/09/21 07:59 Dose: Not Given Documented By: JENY Non-Admin Reason: IV Running Sucralfate (Sucralfate 1 Gm Tablet) 1 gm PO TID@0800,1200,1600 [facility] Last Admin: 12/09/21 08:08 Dose: 1 gm Documented By: JENY Sucralfate (Sucralfate 1 Gm Tablet) 1 gm PO BEDTIME [facility] Last Admin: 12/08/21 21:54 Dose: 1 gm Documented By: REJI Labs CBC & Chem 7: 12/09/21 06:04 12/09/21 06:04 Labs: Laboratory Results - last 24 hr 12/07/21 12/07/21 12/08/21 15:48 22:23 14:34 MCV MCH MCHC RDW Plt Count MPV Absolute Nucleated RBC Nucleated RBC % (auto) Anion Gap Estim Creat Clear Calc Estimated GFR POC Glucose Random Glucose Calcium Total Bilirubin 2.0 H Direct Bilirubin 1.1 H AST 130 H ALT 166 H Alkaline Phosphatase 253 H C-Reactive Protein 1.58 H Total Protein 6.8 Albumin 3.6 Hepatitis A IgM Ab Nonreactive Nonreactive 12/08/21 12/08/21 12/09/21 15:05 18:56 06:04 MCV 92.8 MCH 30.2 MCHC 32.6 RDW 15.7 Plt Count 49 L MPV 14.3 H Absolute Nucleated RBC 0.000 Nucleated RBC % (auto) 0.0 Anion Gap Estim Creat Clear Calc Estimated GFR POC Glucose 142 H 131 H Random Glucose Calcium Total Bilirubin Direct Bilirubin AST ALT Alkaline Phosphatase C-Reactive Protein Total Protein Albumin Hepatitis A IgM Ab 12/09/21 12/09/21 12/09/21 06:04 07:03 12:46 MCV MCH MCHC RDW Plt Count MPV Absolute Nucleated RBC Nucleated RBC % (auto) Anion Gap 18 Estim Creat Clear Calc 88.2 Estimated GFR > 60 POC Glucose 134 H 132 H Random Glucose 143 H Calcium 7.6 L Total Bilirubin 2.0 H Direct Bilirubin AST 102 H ALT 142 H Alkaline Phosphatase 245 H C-Reactive Protein Total Protein 7.3 Albumin 3.9 Hepatitis A IgM Ab Impressions Hepatobiliary Scan Nuclear Medicine 12/08/21 16:10 IMPRESSION: 1. Delayed visualization of the gallbladder, most consistent with chronic cholecystitis. Nonobstructed/acalculous acute cholecystitis however may also have similar appearance and cannot be further differentiated. 2. The common bile duct is patent. 3. Liver function appears normal. Assessment and Plan (1) Transaminitis: Status: Acute (2) Nausea and vomiting: Status: Acute Plan d#3 66yo M long-term resident of [facility] with paroxysmal AF not on AC due to hx upper GI, CHF, BPH, COPD, DM2, GERD, hypothyroidism, depression, ITP, PAD, L eye blindness, gout presenting with subacute nausea/vomiting, found to have transminasemia, GB sludge, possible GB wall edema # transaminasemia # N/V - HIDA scan ?chronic cholecystitis, consult Gen SUrg, continue to monitor LFTs, chronic HBV/HCV serologies negative # DM2 with hypoglycemia due to poor PO intake - hypoglycemia resolved - basal/bolus insulin # HTN - holding carvedilol + lisinopril for soft BP + bradycardia # pAF - holding carvedilol due to bradycardia + soft BP - not on AC due to GI bleeding in past # CHF unspecified - continue furosemide # HLD - continue statin # hypothyroidism - continue LT4 # depression -continue escitalopram # chronic normocytic anemia-stable -continue ferrous sulfate # ITP - platelets low but stable- monitor # PAD - continue pentoxifylline # GERD - continue PPI + sucralfate # VTE ppx: LMWH In my clinical judgment, the patient requires continued hospitalization for the following reasons: workup of possible cholecystitis Quality Stroke Does the patient have a stroke diagnosis?: No VTE Prior VTE?: No VTE Risk Level:: Medical - moderate - high VTE Device Contraindication: Treatment Not Indicated VTE Drug Contraindication: N/A - Med Ordered
[2021-12-09 16:00] VITALS: BP 165/75; PULSE 69; RESP 16; TEMP 36.1; O2SAT 99
[2021-12-09] MEDS: Ferrous Sulfate 324 MG TABLET.DR PO (16:04)
[2021-12-09] MEDS: Atorvastatin Calcium 10 MG TABLET PO (16:04)
[2021-12-09] MEDS: Melatonin 3 MG TABLET 6 MG PO (16:04)
[2021-12-09] MEDS: 0.9 % Sodium Chloride Flush 3 ML SYRINGE IVFLUSH (16:05)
[2021-12-09 18:01] LABS: Glucose, Whole Blood 197 mg/dL (60-115)
[2021-12-09] MEDS: Latanoprost 0.005 % Ophth Sol 2.5 ML DROPS 1 DROP EYE-RIGHT (18:13)
[2021-12-09 20:38] LABS: Glucose, Whole Blood 166 mg/dL (60-115)
[2021-12-09 21:08] VITALS: BMI 29.6
[2021-12-10] VITALS: BP 161/74; PULSE 77; RESP 17; TEMP 36.5; O2SAT 97
[2021-12-10 03:43] VITALS: RESP 17
[2021-12-10 06:05] LABS: Hematocrit 35.4 % (42.0-52.0); Hemoglobin 11.5 g/dl (14.0-18.0); Mean Corpuscular HGB Conc 32.5 g/dl (31.0-36.0); Mean Corpuscular Hemoglobin 29.7 pg (27.0-33.0); Mean Corpuscular Volume 91.5 fL (80.0-98.0); Platelet Count 42 X10*3/uL (160-400); Red Blood Count 3.87 X10*6/uL (4.60-5.80); Red Cell Distribution Width 15.3 % (11.0-16.0); White Blood Count 6.7 X10*3/uL (4.8-10.8)
[2021-12-10] MEDS: Omeprazole 40 MG CAPSULE.DR PO (06:34)
[2021-12-10] MEDS: Acetaminophen 325 MG TABLET 650 MG PO ×2 (06:36→12:25)
[2021-12-10 06:43] LABS: Alanine Aminotransferase 105 U/L (0-40); Albumin Level 3.8 g/dL (3.5-5.0); Alkaline Phosphatase 220 U/L (39-117); Anion Gap 19 (12-20); Aspartate Amino Transferase 64 U/L (5-37); Bilirubin Total 1.8 mg/dL (0.0-1.0); Blood Urea Nitrogen 12 mg/dL (9-16); Calcium 7.8 mg/dL (8.4-10.2); Carbon Dioxide 26 mmol/L (22-29); Chloride 98 mmol/L (96-108); Creatinine Clr Calc Pharmacy 90.6; Estimated Glomerular Filt Rate > 60; Glucose Random 176 mg/dL (60-115); Potassium 3.8 mmol/L (3.3-5.1); Sodium 139 mmol/L (135-145); Total Protein 7.1 g/dL (6.5-8.0)
[2021-12-10 08:00] VITALS: BP 160/72; PULSE 64; RESP 15; TEMP 36.7; O2SAT 98
[2021-12-10 08:10] LABS: Glucose, Whole Blood 157 mg/dL (60-115)
[2021-12-10] MEDS: Pentoxifylline ER 400 MG TABLET.ER PO (08:34)
[2021-12-10] MEDS: Calcium Carbonate 750 MG TAB.CHEW PO ×2 (08:34→12:26)
[2021-12-10] MEDS: Magnesium Oxide 400 MG TABLET PO (08:34)
[2021-12-10] MEDS: Escitalopram Oxalate 10 MG TABLET 15 MG PO (08:34)
[2021-12-10] MEDS: Sucralfate 1 GM TABLET PO ×2 (08:34→12:26)
[2021-12-10] MEDS: hydrOXYzine HCL 25 MG TABLET PO (08:35)
[2021-12-10] MEDS: 0.9 % Sodium Chloride Flush 3 ML SYRINGE IVFLUSH (08:42)
--- NOTE | 2021-12-10 09:53 | PM.PNGS ---
Subjective Subjective Date of Service: 12/10/21 Interval history: patient denies abdominal pain. He is tolerating a regular diet without nausea or vomiting. He is complaining about his low-salt diet. Would like to go home. Physical Exam Vital Signs: Vital Signs: Last Vital Signs Temp 98.0 F 12/10/21 08:00 Pulse 64 12/10/21 08:00 Resp 15 12/10/21 08:00 BP 160/72 H 12/10/21 08:00 Pulse Ox 98 12/10/21 08:00 O2 Del Method 12/10/21 08:00 BMI result Body Mass Index 29.6 Const: General: no acute distress Resp: Effort & Inspection: normal respiratory effort GI: Inspection: Yes obesity Palpation (GI): Soft to palpation, nontender, no guarding, not rigid and no masses Auscultation: normal bowel sounds Skin: General skin exam: no rashes or lesions noted Objective Data Active Medications Acetaminophen (Acetaminophen 325 Mg Tablet) 650 mg PO Q6H PRN PRN Reason: Pain, Mild (Pain Scale 1-3) Last Admin: 12/10/21 06:36 Dose: 650 mg Documented By: JAMIE Atorvastatin Calcium (Atorvastatin Calcium 10 Mg Tablet) 10 mg PO DAILY@1700 [facility] Last Admin: 12/09/21 16:04 Dose: 10 mg Documented By: JACE Calcium Carbonate (Calcium Carbonate 750 Mg Tab.Chew) 750 mg PO TID@0800,1200,1700 [facility] Last Admin: 12/10/21 08:34 Dose: 750 mg Documented By: FERNANDO Dextrose (Dextrose 50 % 25 Gm/50 Ml Syringe) 25 gm IVPUSH Q15M PRN; Protocol PRN Reason: per Hypoglycemia Standing Ord. Enoxaparin Sodium (Enoxaparin Sodium 40 Mg/0.4 Ml Syringe) 40 mg SUBCUT Q24H [facility] Last Admin: 12/09/21 21:50 Dose: Not Given Documented By: JAMIE Non-Admin Reason: Patient Refused Erythromycin (Erythromycin Base 0.5% Oph Oin 1 Gm Tube) 1 cm EYE-LEFT MOTH@0900 [facility] Last Admin: 12/08/21 08:07 Dose: 1 cm Documented By: JACE Escitalopram Oxalate (Escitalopram Oxalate 10 Mg Tablet) 15 mg PO DAILY [facility] Last Admin: 12/10/21 08:34 Dose: 15 mg Documented By: FERNANDO Ferrous Sulfate (Ferrous Sulfate 324 Mg Tablet.) 324 mg PO DAILY@1700 [facility] Last Admin: 12/09/21 16:04 Dose: 324 mg Documented By: JACE Furosemide (Furosemide 20 Mg Tablet) 20 mg PO DAILY [facility]; Protocol Last Admin: 12/10/21 08:35 Dose: Not Given Documented By: FERNANDO Non-Admin Reason: Patient Refused Glucose (Glucose Gel 15 Gm Gel..Gram.) 15 gm PO Q15M PRN; Protocol PRN Reason: per Hypoglycemia Standing Ord. Hydroxyzine HCl (Hydroxyzine Hcl 25 Mg Tablet) 25 mg PO DAILY [facility] Last Admin: 12/10/21 08:35 Dose: 25 mg Documented By: FERNANDO Insulin Glargine (Insulin Glargine,Hum.Rec.Anlog 100 Unit/Ml 10 Ml Vial) 35 unit SUBCUT BID@0730,1800 [facility] Last Admin: 12/10/21 08:40 Dose: Not Given Documented By: FERNANDO Non-Admin Reason: No Insulin Coverage Insulin Human Lispro (Insulin Lispro 100 Unit/Ml 3 Ml Vial) 0 unit SUBCUT QIDACHS [facility]; Protocol Last Admin: 12/10/21 08:41 Dose: Not Given Documented By: FERNANDO Non-Admin Reason: Patient Refused Latanoprost (Latanoprost 0.005 % Ophth Kathy 2.5 Ml Drops) 1 drop EYE-RIGHT DAILY@1700 [facility] Last Admin: 12/09/21 18:13 Dose: 1 drop Documented By: JACE Loperamide HCl (Loperamide Hcl 2 Mg Capsule) 2 mg PO Q4H PRN PRN Reason: diarrhoea Magnesium Oxide (Magnesium Oxide 400 Mg Tablet) 400 mg PO DAILY [facility] Last Admin: 12/10/21 08:34 Dose: 400 mg Documented By: FERNANDO Melatonin (Melatonin 3 Mg Tablet) 6 mg PO DAILY@1700 [facility] Last Admin: 12/09/21 16:04 Dose: 6 mg Documented By: JACE Omeprazole (Omeprazole 40 Mg Capsule.) 40 mg PO BID@0630,1630 [facility] Last Admin: 12/10/21 06:34 Dose: 40 mg Documented By: JAMIE Ondansetron HCl (Ondansetron Hcl 4 Mg/2 Ml Vial) 4 mg IVPUSH Q8H PRN PRN Reason: Nausea and Vomiting Pentoxifylline (Pentoxifylline Er 400 Mg Tablet.Er) 400 mg PO BID [facility] Last Admin: 12/10/21 08:34 Dose: 400 mg Documented By: FERNANDO Pharmacy Consult (Consult Rx Perform Med Rec) 1 each MISCELLANE ONCE PRN PRN Reason: Consult order Sodium Chloride (0.9 % Sodium Chloride Flush 3 Ml Syringe) 3 ml IVFLUSH QSHIFT [facility] Last Admin: 12/10/21 08:42 Dose: 3 ml Documented By: FERNANDO Sucralfate (Sucralfate 1 Gm Tablet) 1 gm PO TID@0800,1200,1600 [facility] Last Admin: 12/10/21 08:34 Dose: 1 gm Documented By: FERNANDO Sucralfate (Sucralfate 1 Gm Tablet) 1 gm PO BEDTIME [facility] Last Admin: 12/09/21 21:03 Dose: 1 gm Documented By: JAMIE Labs CBC & Chem 7: 12/10/21 05:13 12/10/21 05:13 Labs: Laboratory Results - last 24 hr 12/09/21 12/09/21 12/09/21 12:46 17:47 20:30 MCV MCH MCHC RDW Plt Count MPV Absolute Nucleated RBC Nucleated RBC % (auto) Anion Gap Estim Creat Clear Calc Estimated GFR POC Glucose 132 H 197 H 166 H Random Glucose Calcium Total Bilirubin Direct Bilirubin AST ALT Alkaline Phosphatase C-Reactive Protein Total Protein Albumin 12/10/21 12/10/21 12/10/21 05:13 05:13 07:54 MCV 91.5 MCH 29.7 MCHC 32.5 RDW 15.3 Plt Count 42 L MPV TNP Absolute Nucleated RBC 0.000 Nucleated RBC % (auto) 0.0 Anion Gap 19 Estim Creat Clear Calc 90.6 Estimated GFR > 60 POC Glucose 157 H Random Glucose 176 H Calcium 7.8 L Total Bilirubin 1.8 H Direct Bilirubin 1.0 H AST 64 H ALT 105 H Alkaline Phosphatase 220 H C-Reactive Protein 2.90 H Total Protein 7.1 Albumin 3.8 Procedures Date of Service Date of Service: 12/10/21 Progress Note: A&P Assessment and plan (1) Abdominal pain: Status: Acute (2) Nausea and vomiting: Status: Acute (3) Transaminitis: Status: Acute Plan Patient's abdominal symptoms are now improved and he is tolerating regular diet. No surgical intervention is required at this time. Will sign off. Time Spent With Patient Time: Total time spent is greater than 50% in coordination of care (as documented) at patient's floor/unit and/or counseling patient: Quality Stroke Does the patient have a stroke diagnosis?: No VTE Prior VTE?: No VTE Risk Level:: Medical - moderate - high VTE Device Contraindication: Treatment Not Indicated VTE Drug Contraindication: N/A - Med Ordered
--- NOTE | 2021-12-10 10:03 | MHC.CM.PN ---
PT IS CLEARED TO DC TODAY [place] CONTACTED NURSING DIST[employer]BUTION [employer]PER[employer] SUPERVISOR AT [facility], JOSE ELIAS [phone] WHO REQUESTED PT RETURN AT 1600 HOURS CM CONTACTED PTS HCP, FATHER PAULO PARENT [phone] AND INFORMED HIM OF THE DC AND TIME CLINICAL INFORMATION FAXED TO JOSE ELIAS AT [facility] AT FAX NUMBER [phone] BLS TRANSPORT SCHEDULED FOR 1600 HOURS VIA [facility]
[2021-12-10 10:55] LABS: COVID-19 Test Negative (Negative)
--- NOTE | 2021-12-10 11:19 | PM.DS ---
DS: Providers Provider Date of Service: 12/10/21 Date of admission: 12/07/21 21:43 Date of discharge: 12/10/21 Primary care physician: Simona Fregoso MD Consults: 12/07/21 21:43 Consult to Gastroenterology Routine Consulting Provider: Jordan Beyer Reason for consultation: elevated LFT's, n/v 12/09/21 08:04 Consult to General Surgery Routine Consulting Provider: [facility] Reason for consultation: cholecytisits, acute vs chronic DS: Diagnosis Discharge Diagnosis (1) Abdominal pain: Status: Acute (2) Nausea and vomiting: Status: Acute (3) Transaminitis: Status: Acute (4) Gallbladder sludge: Status: Acute (5) Hypoglycemia: Status: Acute DS: Summary Hospital Course Hospital Course: from admission H+P by hospitalist ROLANDO Reeder, 12/07/21: 66-year-old male with history of paroxysmal atrial fibrillation, congestive heart failure, BPH, COPD, insulin-dependent type 2 diabetes, GERD, hypothyroidism, depression, thrombocytopenia secondary to ITP, blindness of the left eye, gout, history of upper GI bleed presented to ED this morning via EMS from [facility] where he resides due to nausea, vomiting, decreased p.o. tolerance, and right upper quadrant pain ongoing for 2.5 weeks.? 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 He states that he has a was tolerate liquids but vomits any time he eats.? He also endorses chronic intermittent diarrhea but denies any hematochezia or melena.? No hematemesis.? He denies any fevers, chills, reflux, dysphagia, globus sensation, shortness of breath, lightheadedness, palpitations, or chest pains.? On arrival, mild bradycardia 54.? Patient is afebrile, no hypotension or hypoxia.? No leukocytosis.? Stable normocytic anemia with HGB/HCT 10.8/33.0%.? Glucose 45 on arrival treated with 1 amp D50 and also given 500 mL NS.? Renal function and electrolyte levels normal.? Total bilirubin 1.9 (baseline).? AST 183, ALT 215, alkaline phosphatase 262 (baseline 28, 17, and 77 respectively). Trop-I 4.5, BNP 88. Lipase 48.? CT abdomen/pelvis without any acute intra-abdominal.? Subsequent abdominal ultrasound showing mild hepatic steatosis without focal lesion as well as sludge in the gallbladder without any obvious gallstones.? There is question of mild gallbladder wall edema but no other findings to suggest definite acute cholecystitis.? Reports occasional ETOH use but does endorse history of alcohol abuse.? No illicit drug use.? Former smoker.? ED discussed case with Gastroenterology who is recommending patient be observed overnight. This 66yo M long-term resident of [facility] with paroxysmal AF not on AC due to hx upper GI, CHF, BPH, COPD, DM2, GERD, hypothyroidism, depression, ITP, PAD, L eye blindness, and gout presented with subacute nausea/vomiting, and was found to have transminasemia, GB sludge, and possible GB wall edema. GI and Gen Surg were consulted. HIDA scan and clinical impression was most consistent with chronic cholecystitis related to gallbaldder sludge causing biliary colic. Chronic HBV/HCV serologies were negative. Transaminases improved. His diet was advanced and he was counseled to follow a low-fat diet and to follow-up with the [facility] general [place] clinic in 2 weeks. Hypoglycemia was attributed to poor PO intake and did not recur. Time Spent with Patient Time attestation: Total time spent providing and/or coordinating discharge services: Discharge coordination time: Greater than 30 minutes Quality: Safe Use of Opioids Does Pt have an Active Cancer Diagnosis on the Problem List?: No Quality: Stroke Does the patient have a stroke diagnosis?: No Physical Exam Vital Signs: Vital Signs: Last Vital Signs Temp 98.0 F 12/10/21 08:00 Pulse 64 12/10/21 08:00 Resp 15 12/10/21 08:00 BP 160/72 H 12/10/21 08:00 Pulse Ox 98 12/10/21 08:00 O2 Del Method 12/10/21 08:00 BMI result Body Mass Index 29.6 Gen: in no acute distress HEENT: L eye blind, moist mucus membranes Neck: supple Lungs: clear to auscultation bilaterally Heart: regular rate and rhythm, no murmurs Abd: soft, non-tender, non-distended Ext: no edema Skin: warm/well-perfused Neuro: alert and oriented x3, no focal findings Psych: appropriate affect DS: Data Data Completed and Pending Completed studies during hospitalization [Text1]: Laboratory Results WBC 6.7 X10*3/uL (4.8-10.8) 12/10/21 05:13 RBC 3.87 X10*6/uL (4.60-5.80) L 12/10/21 05:13 Hgb 11.5 g/dl (14.0-18.0) L 12/10/21 05:13 Hct 35.4 % (42.0-52.0) L 12/10/21 05:13 MCV 91.5 fL (80.0-98.0) 12/10/21 05:13 MCH 29.7 pg (27.0-33.0) 12/10/21 05:13 MCHC 32.5 g/dl (31.0-36.0) 12/10/21 05:13 RDW 15.3 % (11.0-16.0) 12/10/21 05:13 Plt Count 42 X10*3/uL (160-400) L 12/10/21 05:13 MPV TNP 12/10/21 05:13 Immature Gran % (Auto) 0.9 % (0.0-0.4) H 12/07/21 15:48 Neut % (Auto) 62.0 % (45-73) 12/07/21 15:48 Lymph % (Auto) 19.2 % (20-40) L 12/07/21 15:48 [place] % (Auto) 9.9 % (2-11) 12/07/21 15:48 Eos % (Auto) 6.9 % (0-4) H 12/07/21 15:48 Baso % (Auto) 1.1 % (0-2) 12/07/21 15:48 Lymph # (Auto) 1.1 X10*3/uL (1.2-4.9) L 12/07/21 15:48 [place] # (Auto) 0.6 X10*3/uL (0.1-1.2) 12/07/21 15:48 Eos # (Auto) 0.4 X10*3/uL (0.0-0.4) 12/07/21 15:48 Baso # (Auto) 0.1 X10*3/uL (0.0-0.2) 12/07/21 15:48 Abs Immat Gran (auto) 0.05 X10*3/uL (0.00-0.03) H 12/07/21 15:48 Absolute Neuts (auto) 3.5 x10*3/uL (2.0-8.3) 12/07/21 15:48 Absolute Nucleated RBC 0.000 X10*3/uL (0.0-0.012) 12/10/21 05:13 Nucleated RBC % (auto) 0.0 /100WBC (0.0-0.2) 12/10/21 05:13 Smear Tech's Comments VERIFIED 12/07/21 15:48 PT 13.7 SEC (10.0-13.1) H 12/07/21 15:48 INR 1.2 (0.9-1.1) H 12/07/21 15:48 Sodium 139 mmol/L (135-145) 12/10/21 05:13 Potassium 3.8 mmol/L (3.3-5.1) 12/10/21 05:13 Chloride 98 mmol/L (96-108) 12/10/21 05:13 Carbon Dioxide 26 mmol/L (22-29) 12/10/21 05:13 Anion Gap 19 (12-20) 12/10/21 05:13 BUN 12 mg/dL (9-16) 12/10/21 05:13 Creatinine 0.95 mg/dL (0.5-1.4) 12/10/21 05:13 Estim Creat Clear Calc 90.6 12/10/21 05:13 Estimated GFR > 60 12/10/21 05:13 POC Glucose 157 mg/dL (60-115) H 12/10/21 07:54 Random Glucose 176 mg/dL (60-115) H 12/10/21 05:13 Calcium 7.8 mg/dL (8.4-10.2) L 12/10/21 05:13 Total Bilirubin 1.8 mg/dL (0.0-1.0) H 12/10/21 05:13 Direct Bilirubin 1.0 mg/dL (0.0-0.5) H 12/10/21 05:13 AST 64 U/L (5-37) H 12/10/21 05:13 ALT 105 U/L (0-40) H 12/10/21 05:13 Alkaline Phosphatase 220 U/L (39-117) H 12/10/21 05:13 Troponin I High Sens 4.5 ng/L (<3.5-35.0) 12/07/21 15:48 C-Reactive Protein 2.90 mg/dL (< or = 0.50) H 12/10/21 05:13 B-Natriuretic Peptide 88 pg/mL (<100) 12/07/21 15:48 Total Protein 7.1 g/dL (6.5-8.0) 12/10/21 05:13 Albumin 3.8 g/dL (3.5-5.0) 12/10/21 05:13 Lipase 48 U/L (8-78) 12/07/21 15:48 COVID-19 (ARTURO) Negative (Negative) 12/10/21 10:30 COVID-19 Clin Com See Note 12/10/21 10:30 Hepatitis A IgM Ab Nonreactive (Nonreactive) 12/07/21 22:23 Hep Bs Antigen Negative (Negative) 12/07/21 22: Hep Bs Antibody NONREACTIVE (Nonreactive) 12/07/21 22:23 Hep B Core Total Ab Nonreactive (Nonreactive) 12/07/21 22:23 Hepatitis C Ab (EIA) Nonreactive (Nonreactive) 12/07/21 22:23 Impressions Abdomen/Pelvis CT 12/07/21 16:44 IMPRESSION: -No acute inflammatory changes in abdomen or pelvis. -No bowel obstruction. Normal appendix. No ascites. -No hydronephrosis, hydroureter, or perinephric stranding. -Multiple findings as detailed above similar to prior imaging 04/30/2021. Abdomen Ultrasound 12/07/21 19:00 IMPRESSION: Mild hepatic steatosis without focal lesion. Sludge in the gallbladder. No shadowing gallstones. Question mild gallbladder wall edema. No additional findings to suggest definite acute cholecystitis. Clinically correlate. Short-term follow-up ultrasound for reassessment as clinically warranted. Right renal midpole 1.5 cm nonobstructing calculus. Hepatobiliary Scan Nuclear Medicine 12/08/21 16:10 IMPRESSION: 1. Delayed visualization of the gallbladder, most consistent with chronic cholecystitis. Nonobstructed/acalculous acute cholecystitis however may also have similar appearance and cannot be further differentiated. 2. The common bile duct is patent. 3. Liver function appears normal. Discharge Plan Discharge Patient Disposition: [facility] Discharge Diagnosis: gallbladder sludge/chronic cholecystitis Referrals: [facility] [Outside] - 1 Week Frankie Ricks MD [Physician] - 2 Weeks iSmona Fregoso MD [Primary Care Provider] - 1 Week Discharge Medications: Continued latanoprost 0.005 % drops 1 drp ophthalmic-Right DAILY@1700 carvedilol 12.5 mg tablet 1 tab PO BID@0800,1700 atorvastatin 10 mg tablet 1 tab PO DAILY@1700 citalopram 10 mg tablet 1 tab PO DAILY Rx Instructions: TDD = 30 MG pentoxifylline 400 mg tablet extended release 1 tab PO BID Hold Instructions: Resume on 03/02/20. if bleeding the stop citalopram 20 mg tablet 1 tab PO DAILY Rx Instructions: TDD = 30 MG hydroxyzine HCl 25 mg tablet 25 mg PO DAILY furosemide 20 mg tablet 1 tab PO DAILY omeprazole 40 mg Capsule,Delayed Release(Dr/Ec) 40 mg PO BID@0630,1630 Qty: 60 0RF sucralfate 1 gram tablet 1 tab PO BEDTIME acetaminophen 500 mg Tablet 1,000 mg PO TID@0800,1300,1700 insulin aspart U-100 [Novolog U-100 Insulin aspart] 100 unit/mL solution See Protocol subcut [facility] Protocol: Insulin Correction Scale Less than or equal to 110 ---- Give (units): 0 111 to 150 Give (units): 0 151 to 200 Give (units): 2 201 to 250 Give (units): 4 251 to 300 Give (units): 6 301 to 350 Give (units): 8 Greater than 350 Give (units): 10 Call MD if Blood Glucose > : 350 erythromycin 5 mg/gram (0.5 %) ointment 1 appl ophthalmic-Left MOTH@0900 ferrous sulfate 325 mg (65 mg iron) Tablet 325 mg PO DAILY@1700 calcium carbonate [Calcium Antacid] 200 mg calcium (500 mg) Tablet,Chewable 200 mg PO TID@0800,1200,1700 lisinopril 5 mg tablet 1 tab PO DAILY cholecalciferol (vitamin D3) 1,250 mcg (50,000 unit) Capsule 1,250 mcg PO QMONTH Rx Instructions: TAKES ON THE 16TH OF EACH MONTH melatonin 5 mg Tablet 5 mg PO DAILY@1700 magnesium oxide 400 mg magnesium Tablet 400 mg PO DAILY sucralfate 1 gram tablet 1 g PO TID@0800,1200,1600 Levemir U-100 Insulin 100 unit/mL solution 100 unit subcut BID@0730,1800 Discharge Orders: Discharge Order (Routine); Ordered 12/10/21 Ordered By: Boris Paris Diet: Low fat, low cholesterol Activity on Discharge: As tolerated Stand Alone Forms: Patient Portal Discharge page Care Plan Goals: prevent gallbladder complications Health Concerns: gallbladder sludge/chronic cholecystitis Plan of Treatment: follow a low-fat diet follow up with general surgeon at [facility] in 2 weeks Please follow up with your primary care doctor within 1 week. Return to the hospital if you experience recurrent or worsening symptoms. Assessment: See Discharge Summary.
[2021-12-10 11:50] LABS: Glucose, Whole Blood 202 mg/dL (60-115)
[2021-12-10 12:00] VITALS: BP 146/69; PULSE 74; RESP 16; TEMP 36.7; O2SAT 100
== END 2021-12-10 16:06 | disposition skilled nursing facility (03) ==
LOC: HO.ED 21:22 → HO.EDOVER 21:56 → HO.S3 12-09 17:15
PROVIDERS: Internal Medicine Gastroenterology; Admitting Provider Physician Assistant; Emergency Provider Student in an Organized Health Care Education/Training Program; PCP Internal Medicine; Visit Provider Family Medicine
DX: R10.11 Right upper quadrant pain (principal); R11.2 Nausea with vomiting, unspecified; R74.01 Elevation of levels of liver transaminase levels; E11.649 Type 2 diabetes mellitus with hypoglycemia without coma; N20.0 Calculus of kidney; K76.0 Fatty (change of) liver, not elsewhere classified; K82.8 Other specified diseases of gallbladder; Z20.822 Contact with and (suspected) exposure to COVID-19; E11.22 Type 2 diabetes mellitus with diabetic chronic kidney disease; I13.0 Hypertensive heart and chronic kidney disease with heart failure and stage 1 through stage 4 chronic kidney disease, or unspecified chronic kidney disease; N18.9 Chronic kidney disease, unspecified; I50.9 Heart failure, unspecified; I48.0 Paroxysmal atrial fibrillation; K21.9 Gastro-esophageal reflux disease without esophagitis; E03.9 Hypothyroidism, unspecified; D69.6 Thrombocytopenia, unspecified; Z87.891 Personal history of nicotine dependence; Z99.3 Dependence on wheelchair; Z79.4 Long term (current) use of insulin; Z79.02 Long term (current) use of antithrombotics/antiplatelets; Z79.899 Other long term (current) drug therapy
CPT/HCPCS: 36415; 74176; 76705; 78226; 80048; 80053; 80076; 82947; 83690; 83880; 84484; 85025; 85027; 85610; 86140; 86704; 86706; 86709; 86803; 87340; 87635; 93005; 96361; 96372; 96374; 96375; 99218; 99285; A9537; J1650; J2405

== ENCOUNTER → 2021-12-20 15:19 | Outpatient (BNVA) | payer MEDICARE, MEDICAID, SELFPAY | PROVIDERS: PCP Internal Medicine; Visit Provider Surgery | DX: K82.8 Other specified diseases of gallbladder (principal) | CPT/HCPCS: 99212 ==

== ENCOUNTER 2022-01-02 03:21 | Emergency (ER) | payer MEDICARE, MEDICAID, SELFPAY ==
--- NOTE | ~2022-01-02 | US_ITS ---
EXAMINATION: US ABDOMEN LIMITED CLINICAL INFORMATION: Upper quadrant pain right upper quadrant. COMPARISON: 12/07/2021. TECHNIQUE: Real-time imaging of the right upper quadrant abdominal viscera. FINDINGS: PANCREAS: Pancreatic head and body normal. Tail obscured. LIVER: Liver is prominent at 18 cm. Slightly increased echotexture. No focal masses. No biliary dilatation. GALLBLADDER: There is a prominent, oval structure within the gallbladder likely a focus of tumefactive sludge at 9 x 30 mm. No change. There is slight gallbladder wall thickening. There is no pericholecystic fluid. COMMON BILE DUCT: Normal in caliber measuring 0.4 cm in diameter. RIGHT KIDNEY: Minimally shadowing echogenic nonobstructive focus 8 mm are all No hydronephrosis. No renal calculi or focal parenchymal lesions. The kidney measures 10.8 cm in maximum dimension. FREE FLUID: None. US/US abdomen limited IMPRESSION: Tumefactive sludge within the gallbladder. Slightly thickened gallbladder wall. Follow-up HIDA scan could be done if clinically indicated. Enlarged fatty liver.
--- NOTE | ~2022-01-02 | CT_ITS ---
EXAMINATION: CT ABDOMEN AND PELVIS WITHOUT CONTRAST CLINICAL INFORMATION: Abdominal pain. COMPARISON: 12/07/2021 CT scan of the abdomen and pelvis. TECHNIQUE: Multidetector volumetric imaging was performed from the superior aspect of the liver through the pubic symphysis. Sagittal and coronal reformatted images were obtained on the technologist's workstation. Lack of intravenous and oral contrast limits visceral evaluation. This CT examination was performed using dose optimization techniques as appropriate, variously including the following: *Automated exposure control *Adjustment of mA and/or kV according to patient size (this includes techniques or standardized protocols for targeted exams where dose is matched to indication/reason for exam; i.e. extremities or head) *Use of iterative reconstruction technique DLP: 798 mGy-cm FINDINGS: LUNG BASES: The visualized lung bases are unremarkable. LIVER, GALLBLADDER, AND BILIARY TREE: Hepatic cirrhotic appearance without focal abnormality. Mild dependent sludge in the gallbladder without surrounding abnormality. No biliary ductal dilatation. PANCREAS: Unremarkable. SPLEEN: 14.4 cm without focal abnormality. ADRENAL GLANDS: Unremarkable. KIDNEYS AND URETERS: Right kidney lower pole calculus measures 0.8 cm (image 65, series 5). Left upper pole fluid attenuation cyst with thin septation and thin coarse calcification measuring up to 4.0 cm (image 54, series 3). No hydroureteronephrosis bilaterally. BLADDER: Normally distended limiting evaluation without overt abnormality. GASTROINTESTINAL TRACT: The stomach, small bowel and appendix are unremarkable. The colon shows mild to moderate diverticulosis, most pronounced in the sigmoid colon without surrounding abnormality. The rectum is unremarkable. ABDOMINAL WALL: Small fat-containing left inguinal hernia. LYMPH NODES: No lymphadenopathy. VASCULAR: Mild to moderate atherosclerosis. The infrarenal abdominal aorta measures up to 3.0 cm (image 57, series 3). Left common carotid aneurysmal dilatation measuring up to 2.8 cm (image 63, series 3). Right common carotid aneurysm measuring 2.9 cm (image 58, series 3). 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 PELVIC VISCERA: Coarse calcifications posteriorly without significant enlargement. OSSEOUS STRUCTURES: Mild to moderate multilevel degenerative changes in the thoracolumbar spine. No suspicious abnormality. CT/CT abdomen pelvis wo IV con IMPRESSION: 1. No acute intra-abdominal/pelvic abnormality to explain the patient's symptoms. 2. Hepatic cirrhosis and sequelae of portal hypertension. 3. Probable mild dependent gallbladder sludge without evidence for acute cholecystitis. 4. Nonobstructing right intrarenal calculi. Renal cysts demonstrate benign features without significant interval change not requiring follow-up. 5. Mild to moderate distal colonic diverticulosis without evidence for acute diverticulitis.
[2022-01-02 03:29] VITALS: BP 118/72; BP 133/65; PULSE 67; PULSE 72; RESP 16; TEMP 36.8; O2SAT 97; O2SAT 99; BMI 28.2
[2022-01-02 03:44] VITALS: BP 130/60; PULSE 66; RESP 16; TEMP 36.7; O2SAT 96
[2022-01-02 04:28] LABS: Anion Gap 20 (12-20); Blood Urea Nitrogen 16 mg/dL (9-16); Calcium 7.3 mg/dL (8.4-10.2); Carbon Dioxide 22 mmol/L (22-29); Chloride 105 mmol/L (96-108); Creatinine Clr Calc Pharmacy 79.5; Estimated Glomerular Filt Rate > 60; Glucose Random 96 mg/dL (60-115); Lipase 61 U/L (8-78); Potassium 4.3 mmol/L (3.3-5.1); Sodium 143 mmol/L (135-145)
[2022-01-02 04:51] LABS: Basophils Absolute Auto 0.1 X10*3/uL (0.0-0.2); Basophils Percent Auto 1.1 % (0-2); Eosinophils Absolute Auto 0.5 X10*3/uL (0.0-0.4); Eosinophils Percent Auto 6.7 % (0-4); Hematocrit 35.3 % (42.0-52.0); Hemoglobin 11.7 g/dl (14.0-18.0); Imm Gran Abs Auto 0.03 X10*3/uL (0.00-0.03); Imm Gran Pct Auto 0.4 % (0.0-0.4); Lymphocytes Percent Auto 13.2 % (20-40); Mean Corpuscular HGB Conc 33.1 g/dl (31.0-36.0); Mean Corpuscular Hemoglobin 29.8 pg (27.0-33.0); Mean Corpuscular Volume 90.1 fL (80.0-98.0); Mean Platelet Volume 14.7 fL (9.4-12.4); Monocytes Absolute Auto 0.5 X10*3/uL (0.1-1.2); Neutrophils Absolute Auto 5.2 x10*3/uL (2.0-8.3); Neutrophils Percent Auto 71.6 % (45-73); PLT ABN DIST 1; Platelet Count 60 X10*3/uL (160-400); Red Blood Count 3.92 X10*6/uL (4.60-5.80); Red Cell Distribution Width 15.3 % (11.0-16.0); SCAN SMEAR FLAG 1; White Blood Count 7.3 X10*3/uL (4.8-10.8)
[2022-01-02 04:52] LABS: MANUAL DIFF FLAG NO
[2022-01-02 05:54] VITALS: BP 127/74; PULSE 64; RESP 18; TEMP 36.8; O2SAT 98
[2022-01-02 06:19] LABS: Alanine Aminotransferase 21 U/L (0-40); Albumin Level 3.9 g/dL (3.5-5.0); Alkaline Phosphatase 126 U/L (39-117); Aspartate Amino Transferase 38 U/L (5-37); Bilirubin Direct 0.4 mg/dL (0.0-0.5); Bilirubin Total 1.1 mg/dL (0.0-1.0); Total Protein 7.6 g/dL (6.5-8.0)
--- NOTE | 2022-01-02 07:02 | ED_ITS ---
HPI - Abdominal Pain General Chief Complaint: Abdominal Pain Stated Complaint: Abd pain Time Seen by Provider: 01/02/22 04:21 Source: patient Mode of arrival: EMS History of Present Illness HPI narrative: 66-year-old male presents via EMS for complaints of right upper quadrant/epigastric discomfort that is been going on for 2-3 hours and now he states has persisted of the last several hours with associated nausea, vomiting denies any fever chills. Patient states he has continued to have bowel movements and passes flatus. Related Data Home Medications Medication Instructions Recorded Confirmed atorvastatin 10 mg tablet 1 tab PO DAILY@1700 02/21/20 12/23/21 carvedilol 12.5 mg tablet 1 tab PO BID@0800,1700 02/21/20 12/23/21 citalopram 10 mg tablet 1 tab PO DAILY 02/21/20 12/23/21 citalopram 20 mg tablet 1 tab PO DAILY 02/21/20 12/23/21 furosemide 20 mg tablet 1 tab PO DAILY 02/21/20 12/23/21 hydroxyzine HCl 25 mg tablet 25 mg PO DAILY 02/21/20 12/23/21 latanoprost 0.005 % eye drops 1 drp ophthalmic-Right DAILY@1700 02/21/20 12/23/21 pentoxifylline 400 mg 1 tab PO BID 02/21/20 12/23/21 tablet,extended release acetaminophen 500 mg tablet 1,000 mg PO TID@0800,1300,1700 12/07/21 12/23/21 calcium carbonate 200 mg calcium 200 mg PO TID@0800,1200,1700 12/07/21 12/23/21 (500 mg) chewable tablet (Calcium Antacid) cholecalciferol (vitamin D3) 1,250 1,250 mcg PO QMONTH 12/07/21 12/23/21 mcg (50,000 unit) capsule erythromycin 5 mg/gram (0.5 %) eye 1 appl ophthalmic-Left MOTH@0900 12/07/21 12/23/21 ointment ferrous sulfate 325 mg (65 mg 325 mg PO DAILY@1700 12/07/21 12/23/21 iron) tablet insulin aspart U-100 100 unit/mL See Protocol subcut QIDACHS 12/07/21 12/23/21 subcutaneous solution (Novolog U-100 Insulin aspart) insulin detemir U-100 100 unit/mL 100 unit subcut BID@0730,1800 12/07/2106/10 subcutaneous solution (Levemir U-100 Insulin) lisinopril 5 mg tablet 1 tab PO DAILY 12/07/21 12/23/21 magnesium oxide 400 mg PO DAILY 12/07/21 12/23/21 melatonin 5 mg tablet 5 mg PO DAILY@1700 12/07/21 12/23/21 sucralfate 1 gram tablet 1 g PO TID@0800,1200,1600 12/07/21 12/23/21 sucralfate 1 gram tablet 1 g PO TID 12/20/21 12/23/21 Previous Rx's Medication Instructions Recorded omeprazole 40 mg capsule,delayed 40 mg PO BID@0630,1630 #60 caps 02/25/20 release Allergies Allergy/AdvReac Type Severity Reaction Status Date / Time colchicine Allergy Unknown diarrhea Verified 12/20/21 15:49 Review of Systems Review of Systems Pertinent positives and negatives as stated in HPI 10 point review of systems is otherwise negative. [facility] Past Medical History Source: nursing notes reviewed Medical History Atrial fibrillation Blindness of left eye BPH (benign prostatic hyperplasia) CHF (congestive heart failure) COPD (chronic obstructive pulmonary disease) Diabetes Diverticulosis Gallbladder sludge GERD (gastroesophageal reflux disease) Hypothyroid Major depression Osteoarthritis 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 Strain of left knee Thrombocytopenia Family History Family History Maternal Grandmother Diabetes Mother Diabetes Social History Social History Household Members: None Housing: Care Home Housing Other:: [facility] Do you presently have visiting nurse or other home services: No Alcohol intake: current Alcohol intake frequency: holidays/special occasions only Alcohol type: beer Patient Tobacco Use Status: Former Tobacco user Tobacco use type: Cigarette Smoked in Last 30 Days: No Use of substances other than those prescribed or required for medical reasons: No Advance Directives: Yes Advance Directives on File: Yes Advance Directives Date on File: 02/20/20 service: No Current occupational status: retired Physical Exam ED Vital Signs: Vital Signs - 24 hr 01/02/22 03:29 01/02/22 03:44 01/02/22 05:54 Temperature 98.3 F 98.1 F 98.3 F Pulse Rate 67 66 64 Respiratory Rate 16 16 18 Blood Pressure 133/65 130/60 127/74 Pulse Oximetry 97 96 98 Oxygen Delivery Method Room Air Room Air Room Air BMI result Body Mass Index 28.2 VITAL SIGNS: Reviewed. GENERAL: Well developed, well nourished, in no acute distress. HEAD: Normocephalic/atraumatic EYES: PERRLA, EOMI, blind in left eye EARS: Ext canals without abnormality OROPHARYNX: no oral lesions noted, posterior pharynx clear LUNGS: Normal breath sounds. No adventitious sounds or accessory muscle use. Sp O2<98> CARDIOVASCULAR: Regular rate and rhythm without noted murmurs, no JVD or lower extremity edema. ABDOMEN: Soft, mild right upper quadrant/epigastric pain without rebound, non- distended with bowel sounds. MUSCULOSKELETAL: No tenderness, deformities, or effusions noted on gross inspection. EXTREMITIES: No cyanosis, clubbing or edema. SKIN: Inspection of the skin reveals no rashes NEUROLOGIC: Alert and oriented x 4. Strength and sensation to light touch were grossly intact x 4. Course Course Course Narrative: 66-year-old male with known chronic cholecystitis presents with right upper qu adrant pain and some mild nausea and vomiting inconsistent with small bowel obstruction as he has continued to pass flatus and have bowel movements. There is no evidence of leukocytosis and on evaluation of chemistries they are much improved when compared to previous. CT scan/ultrasound have been ordered and I discussed the case with Dr. Ricks who states that if imaging studies are within patient's baseline he can follow-up in the office. MDM - Abdominal Pain Lab Data Result diagrams: 01/02/22 04:45 01/02/22 04:04 Labs: Lab Results 01/02/22 01/02/22 Range/Units 04:04 04:45 WBC 7.3 (4.8-10.8) X10*3/uL RBC 3.92 L (4.60-5.80) X10*6/uL Hgb 11.7 L (14.0-18.0) g/dl Hct 35.3 L (42.0-52.0) % MCV 90.1 (80.0-98.0) fL MCH 29.8 (27.0-33.0) pg MCHC 33.1 (31.0-36.0) g/dl RDW 15.3 (11.0-16.0) % Plt Count 60 L D (160-400) X10*3/uL MPV 14.7 H (9.4-12.4) fL Immature Gran % (Auto) 0.4 (0.0-0.4) % Neut % (Auto) 71.6 (45-73) % Lymph % (Auto) 13.2 L (20-40) % [place] % (Auto) 7.0 (2-11) % Eos % (Auto) 6.7 H (0-4) % Baso % (Auto) 1.1 (0-2) % Lymph # (Auto) 1.0 L (1.2-4.9) X10*3/uL [place] # (Auto) 0.5 (0.1-1.2) X10*3/uL Eos # (Auto) 0.5 H (0.0-0.4) X10*3/uL Baso # (Auto) 0.1 (0.0-0.2) X10*3/uL Abs Immat Gran (auto) 0.03 (0.00-0.03) X10*3/uL Absolute Neuts (auto) 5.2 (2.0-8.3) x10*3/uL Absolute Nucleated RBC 0.000 (0.0-0.012) X10*3/uL Nucleated RBC % (auto) 0.0 (0.0-0.2) /100WBC Sodium 143 (135-145) mmol/L Potassium 4.3 (3.3-5.1) mmol/L Chloride 105 (96-108) mmol/L Carbon Dioxide 22 (22-29) mmol/L Anion Gap 20 (12-20) BUN 16 (9-16) mg/dL Creatinine 1.06 (0.5-1.4) mg/dL Estim Creat Clear Calc 79.5 Estimated GFR > 60 Random Glucose 96 D (60-115) mg/dL Calcium 7.3 L D (8.4-10.2) mg/dL Total Bilirubin 1.1 H (0.0-1.0) mg/dL Direct Bilirubin 0.4 (0.0-0.5) mg/dL AST 38 H D (5-37) U/L ALT 21 (0-40) U/L Alkaline Phosphatase 126 H D (39-117) U/L Total Protein 7.6 (6.5-8.0) g/dL Albumin 3.9 (3.5-5.0) g/dL Lipase 61 (8-78) U/L Discharge Plan Discharge Clinical Impression: Right upper quadrant abdominal pain Patient Disposition: Still a Patient Instructions: Abdominal Pain (ED) Prescriptions: No Action latanoprost 0.005 % drops 1 drp ophthalmic-Right DAILY@1700 carvedilol 12.5 mg tablet 1 tab PO BID@0800,1700 atorvastatin 10 mg tablet 1 tab PO DAILY@1700 citalopram 10 mg tablet 1 tab PO DAILY Rx Instructions: TDD = 30 MG pentoxifylline 400 mg tablet extended release 1 tab PO BID Hold Instructions: Resume on 03/02/20. if bleeding the stop citalopram 20 mg tablet 1 tab PO DAILY Rx Instructions: TDD = 30 MG hydroxyzine HCl 25 mg tablet 25 mg PO DAILY furosemide 20 mg tablet 1 tab PO DAILY omeprazole 40 mg Capsule,Delayed Release(Dr/Ec) 40 mg PO BID@0630,1630 Qty: 60 0RF acetaminophen 500 mg Tablet 1,000 mg PO TID@0800,1300,1700 insulin aspart U-100 [Novolog U-100 Insulin aspart] 100 unit/mL solution See Protocol subcut QIDAS Protocol: Insulin Correction Scale Less than or equal to 110 ---- Give (units): 0 111 to 150 Give (units): 0 151 to 200 Give (units): 2 201 to 250 Give (units): 4 251 to 300 Give (units): 6 301 to 350 Give (units): 8 Greater than 350 Give (units): 10 Call MD if Blood Glucose > : 350 erythromycin 5 mg/gram (0.5 %) ointment 1 appl ophthalmic-Left MOTH@0900 ferrous sulfate 325 mg (65 mg iron) Tablet 325 mg PO DAILY@1700 calcium carbonate [Calcium Antacid] 200 mg calcium (500 mg) Tablet,Chewable 200 mg PO TID@0800,1200,1700 lisinopril 5 mg tablet 1 tab PO DAILY cholecalciferol (vitamin D3) 1,250 mcg (50,000 unit) Capsule 1,250 mcg PO QMONTH Rx Instructions: TAKES ON THE 16TH OF EACH MONTH melatonin 5 mg Tablet 5 mg PO DAILY@1700 magnesium oxide 400 mg magnesium Tablet 400 mg PO DAILY sucralfate 1 gram tablet 1 g PO TID@0800,1200,1600 Levemir U-100 Insulin 100 unit/mL solution 100 unit subcut BID@0730,1800 sucralfate 1 gram tablet 1 g PO TID Referrals: Frankie Ricks MD [Physician] - Simona Fregoso MD [Primary Care Provider] -
[2022-01-02 07:25] VITALS: BP 124/61; PULSE 60; RESP 24; TEMP 36.8; O2SAT 97
[2022-01-02] MEDS: ondansetron HCL 4 MG/2 ML VIAL IVPUSH (08:01)
[2022-01-02] MEDS: Acetaminophen 325 MG TABLET 975 MG PO (08:04)
[2022-01-02 09:55] VITALS: BP 119/56; PULSE 60; RESP 20; TEMP 36.8; O2SAT 96
[2022-01-02 10:30] VITALS: BP 119/56; PULSE 59; RESP 20; TEMP 36.8; O2SAT 97
== END 2022-01-02 13:11 | disposition home or self-care (01) ==
PROVIDERS: Student in an Organized Health Care Education/Training Program; Emergency Provider Emergency Medicine Emergency Medical Services; PCP Internal Medicine
DX: R10.11 Right upper quadrant pain (principal); I13.0 Hypertensive heart and chronic kidney disease with heart failure and stage 1 through stage 4 chronic kidney disease, or unspecified chronic kidney disease; I50.9 Heart failure, unspecified; N18.9 Chronic kidney disease, unspecified; E11.22 Type 2 diabetes mellitus with diabetic chronic kidney disease
CPT/HCPCS: 36415; 74176; 76705; 80048; 80076; 83690; 85025; 96374; 99284; J2405

== ENCOUNTER → 2022-01-05 13:39 | Outpatient (BNVA) | payer MEDICARE, MEDICAID, SELFPAY | PROVIDERS: PCP Internal Medicine; Visit Provider Surgery | DX: K82.8 Other specified diseases of gallbladder (principal) | CPT/HCPCS: 99212 ==

== ENCOUNTER 2022-01-11 11:14 | Outpatient (REF) | payer MEDICARE, MEDICAID, SELFPAY ==
--- NOTE | 2022-01-11 13:15 | MHC.AU.HFU ---
Hearing Instrument Follow-Up- Binaural Date of Visit: 01/11/22 Right Ear: Marco Reyesida V50-SP BTE SN: [id number] Color: Jaimeagne Repair Warranty: Loss and Damage Warranty: Battery Size: 13 Type of Mold: Micronsonic canal lock Dispensed By: [facility] Date of Fittin12/12/2016 Left Ear: Marco Reyesida V50-SP BTE SN: [id number] Color: Champagne Repair Warranty: Loss and Damage Warranty: Battery Size: 13 Type of Mold: Microsonic canal lock Dispensed By: [facility] Date of Fittin12/12/2016 Follow-Up Summary: Darren reported his left hearing aid was not working. He was wearing his right hearing aid and ear mold on his left ear. Tubing was very hard and plugged with wax. Cleaned both hearing aids and ear molds. Vacuumed the microphones and replaced the tubing. A listening check demonstrated that the hearing aids are in good working order. Reprogrammed the hearing aids to updated audiological evaluation (see separate report). Recommendations: Will begin the process of new hearing aids due to age of current pair - See Hearing Aid Evaluation report. Diagnosis Code(s): Primary Diagnosis: H90.6 Mixed Hearing Loss, Bilateral Secondary Diagnosis: H69.93 Unspecified Eustachian Tube Dysfunction, Bilateral Signature: Provider: Jess Guzmán, [facility]
--- NOTE | 2022-01-11 14:02 | MHC.AU.MED ---
Medical Clearance for Hearing Instrumentation Date: 01/11/22 Patient Name: Darren Deleon Date of : 1955 Primary Care Provider: Simona Fregoso MD We have seen your patient on 01/11/22 and have determined that they are a candidate for amplification (See accompanying report). Specifically, they would benefit from: Hearing aid use in both ears There is a statute that addresses Medical Evaluation Requirements prior to fitting a patient with a hearing aid. According to [place] statute [facility] CMR:6.03(1), (a) General. Except as provided in 265 CMR 6.03(1)(b), a speech and hearing clinic director shall not sell a hearing aid unless the prospective user has presented to the speech and hearing clinic director a written statement signed by a licensed physician that states that the patient's hearing loss has been medically evaluated and the patient may be considered a candidate for a hearing aid. The medical evaluation must have taken place within the preceding six months. Please note: Due to the [place] Statute referenced above, we cannot accept a signature other than that of a licensed physician. IRON POURER and PA signatures cannot be accepted. I am in agreement with the above recommendation. There is no medical contraindication for hearing instrumentation. Physician Signature Date Physician Name (Printed)
--- NOTE | 2022-01-16 12:04 | MHC.AU.HAS ---
Hearing Aid Evaluation Date of Visit: 01/11/22 Historical Information:Description of Hearing: Mild sloping to profound mixed hearing loss, bilaterally, with right ear worse than left ear. Current personal amplification information: Phonak Radha V50-SP BTE hearing aids purchased in November 2016 Summary: Darren has a long-standing mixed hearing loss and has been a successful hearing aid user since at least 2011. He is ready to upgrade his hearing aid technology due to the age of his current pair. He would like to continue with the same style of hearing aid - battery-powered [id number] devices. Hearing Aid Prescription: Based on the individual?s shared listening needs, communication environments, dexterity, desire for connectivity, and personal preferences, the following prescription for amplification has been made: Right ear: Electronic Plotting System Operator: Phonak Model: Radha P70-UP Battery Size: 675 Color: Silver Type of Mold: Microsonic M45 canal lock Left ear: Left ear prescription to be same as Right Hearing Aid above: Electronic Plotting System Operator: Phonak Model: Radha P70-UP Battery Size: 675 Color: Silver Type of Mold: Microsonic M45 canal lock Plan of Care: Patient wishes to purchase hearing aids as prescribed Action Taken/Action Needed: [place] Impressions Taken. Medical Clearance to be requested from PCP/ENT. Hearing Instrument Fitting to be scheduled when materials arrive Primary Diagnosis: H90.6 Mixed Hearing Loss, Bilateral Secondary Diagnosis: H69.93 Unspecified Eustachian Tube Dysfunction, Bilateral Signature: Provider: Jess Guzmán, CCC-A
== END 2022-01-11 11:15 | disposition home or self-care (01) ==
LOC: HO.SH 11:14
PROVIDERS: Visit Provider Internal Medicine
DX: Z01.118 Encounter for examination of ears and hearing with other abnormal findings (principal); Z46.1 Encounter for fitting and adjustment of hearing aid; H90.6 Mixed conductive and sensorineural hearing loss, bilateral; H69.93 Unspecified Eustachian tube disorder, bilateral
CPT/HCPCS: 92557; 92567; 92591; 92593; V5266

== ENCOUNTER 2022-02-01 10:43 | Inpatient (IN) | payer MEDICARE, MEDICAID, SELFPAY ==
--- NOTE | 2022-01-27 10:08 | HO.ANESPROP2 ---
Documented by User: Simona Reyes NP 01/31/22 09:56 HPI - Anesthesia Eval Consult details Narrative: 66yo M for Cholecystectomy Laparoscopic possible open Medically cleared, no further cardiac testing required. Resides at SNF wheelchair bound, DNR, blind left eye ETOH thrombocytopenia - repeat CBC and T&S to be done 01/27/22. Plts = 54. Dr Ricks to order preop platelets. [01/27/22 1030 - Requested medical clearance and cardiac information to be faxed for review to SPENCER Martínez. Also LM with cardiovascular lab director. 1330 - Pt has not been evaluated by a provider since 12/06/21. Case reviewed with Dr Castro. Requires cardiac risk stratification preop d/t cardiac hx and immobility. SPENCER Amador at Dr Ricks's notified.] [facility] Active Problems Active Problems: All Active Problems (Updated 01/16/22 @ 08:54 by Danielle Burdick RN) Chronic kidney disease (Acute) Cardiomyopathy (Acute) Abdominal hernia (Acute) Anemia (Acute) Transaminitis (Acute) Hypoglycemia (Acute) Gallbladder sludge (Acute) Osteoarthritis (Acute) Major depression (Acute) Hypothyroid (Acute) COPD (chronic obstructive pulmonary disease) (Acute) CHF (congestive heart failure) (Acute) BPH (benign prostatic hyperplasia) (Acute) Blindness of left eye (Acute) Past Medical History Medical History Atrial fibrillation Blindness of left eye BPH (benign prostatic hyperplasia) CHF (congestive heart failure) COPD (chronic obstructive pulmonary disease) Diabetes Diverticulosis Gallbladder sludge GERD (gastroesophageal reflux disease) History of COVID-19 Hypothyroid Major depression Osteoarthritis [facility] in [facility] 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 Strain of left knee Thrombocytopenia Family History Family History Maternal Grandmother Diabetes Mother Diabetes Surgical History Surgical History Hx of eye surgery Social History Social History Household Members: None Housing: [facility] Housing Other:: [facility] care Do you presently have visiting nurse or other home services: No Alcohol intake: current Alcohol intake frequency: holidays/special occasions only Alcohol type: beer Patient Tobacco Use Status: Former Tobacco user Quit Date: 10 yrs ago Tobacco use type: Cigarette Advance Directives Date on File: 02/20/20 service: No Current occupational status: retired Meds Allergies Allergy/AdvReac Type Severity Reaction Status Date / Time colchicine Allergy Unknown diarrhea Verified 02/01/22 07:44 Home Medications Medication Instructions Recorded Confirmed Last Taken Type atorvastatin 10 mg tablet 1 tab PO DAILY@1700 02/21/20 01/16/22 01/31/22 History carvedilol 12.5 mg tablet 1 tab PO BID@0800,1700 02/21/20 01/16/22 02/01/22 05:00 History citalopram 10 mg tablet 1 tab PO DAILY 02/21/20 01/16/22 02/01/22 05:00 History citalopram 20 mg tablet 1 tab PO DAILY 02/21/20 01/16/22 02/01/22 05:00 History furosemide 20 mg tablet 1 tab PO DAILY 02/21/20 01/16/22 01/31/22 History hydroxyzine HCl 25 mg tablet 25 mg PO DAILY 02/21/20 01/16/22 01/31/22 History latanoprost 0.005 % eye drops 1 drp ophthalmic-Right DAILY@1700 02/21/20 01/16/22 01/31/22 History pentoxifylline 400 mg 1 tab PO BID 02/21/20 01/16/22 01/31/22 History tablet,extended release acetaminophen 500 mg tablet 1,000 mg PO TID@0800,1300,1700 12/07/21 01/16/22 Unknown History calcium carbonate 200 mg calcium 200 mg PO TID@0800,1200,1700 12/07/21 01/16/22 01/31/22 History (500 mg) chewable tablet (Calcium Antacid) cholecalciferol (vitamin D3) 1,250 1,250 mcg PO QMONTH 12/07/21 01/16/22 01/31/22 History mcg (50,000 unit) capsule erythromycin 5 mg/gram (0.5 %) eye 1 appl ophthalmic-Left MOTH@0900 12/07/21 01/16/22 01/31/22 History ointment ferrous sulfate 325 mg (65 mg 325 mg PO DAILY@1700 12/07/21 01/16/22 01/31/22 History iron) tablet insulin aspart U-100 100 unit/mL See Protocol subcut QIDACHS 12/07/21 01/16/22 Unknown History subcutaneous solution (Novolog U-100 Insulin aspart) insulin detemir U-100 100 unit/mL 100 unit subcut BID@0730,1800 12/07/21 01/16/22 01/31/22 History subcutaneous solution (Levemir U-100 Insulin) lisinopril 5 mg tablet 1 tab PO DAILY 12/07/21 01/16/22 01/31/22 History magnesium oxide 400 mg PO DAILY 12/07/21 01/16/22 01/31/22 History melatonin 5 mg tablet 5 mg PO DAILY@1700 12/07/21 01/16/22 01/31/22 History sucralfate 1 gram tablet 1 g PO QID 12/20/21 01/16/22 01/31/22 History albuterol sulfate 90 mcg/actuation 0 mcg inhalation 01/05/22 01/05/22 Unknown History aerosol inhaler bisacodyl 10 mg rectal suppository 10 mg CO DAILY PRN 01/05/22 01/05/22 Unknown History gabapentin 100 mg capsule 100 mg PO TID PRN Pain 01/05/22 01/16/22 01/31/22 History loperamide 2 mg capsule 2 mg PO Q4H PRN 01/05/22 01/05/22 Unknown History (Anti-Diarrheal (loperamide)) naloxone 4 mg/actuation nasal spray 1 spray intranasal Q2M 01/05/22 01/05/22 Unknown History Exam Exam Date and Time: January 27, 2022 1008 Pertinent Lab Results Pertinent Lab Results: Laboratory Tests 01/02/22 04:04 Sodium 143 Potassium 4.3 Chloride 105 Carbon Dioxide 22 BUN 16 Creatinine 1.06 Narrative Narrative: EKG 11/2021 Vent. Rate : 050 BPM ? ? Atrial Rate : 000 BPM ?? P-R Int : 000 ms? QRS Dur : 114 ms ? ? QT Int : 512 ms ? ? ? P-R-T Axes : 000 029 077 degrees ?? QTc Int : 466 ms ? Sinus bradycardia with 1st degree A-V block Incomplete right bundle branch block Nonspecific ST and T wave abnormality Abnormal ECG When compared with ECG of 30-APR-2021 11:22, Vent. rate has decreased BY? [address] now depressed in Inferior leads Assessment and Plan Assessment Anesthesia Assessment: Chart Reviewed Documented by User: Meche Marques MD 02/01/22 07:59 [facility] Past Medical History Medical History Atrial fibrillation Blindness of left eye BPH (benign prostatic hyperplasia) CHF (congestive heart failure) COPD (chronic obstructive pulmonary disease) Diabetes Diverticulosis Gallbladder sludge GERD (gastroesophageal reflux disease) History of COVID-19 Hypothyroid Major depression Osteoarthritis [facility]ides in [facility] 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 Strain of left knee Thrombocytopenia Family History Family History Maternal Grandmother Diabetes Mother Diabetes Family history of problems with anesthesia: No Surgical History Surgical History Hx of eye surgery History of Problems with Anesthesia: Yes (PONV) Social History Social History Household Members: None Housing: [facility] Housing Other:: [facility] Do you presently have visiting nurse or other home services: No Alcohol intake: current Alcohol intake frequency: holidays/special occasions only Alcohol type: beer Patient Tobacco Use Status: Former Tobacco user Quit Date: 10 yrs ago Tobacco use type: Cigarette Advance Directives Date on File: 02/20/20 service: No Current occupational status: retired Meds Allergies Allergy/AdvReac Type Severity Reaction Status Date / Time colchicine Allergy Unknown diarrhea Verified 02/01/22 07:44 Home Medications Medication Instructions Recorded Confirmed Last Taken Type atorvastatin 10 mg tablet 1 tab PO DAILY@1700 02/21/20 01/16/22 01/31/22 History carvedilol 12.5 mg tablet 1 tab PO BID@0800,1700 02/21/20 01/16/2222 05:00 History citalopram 10 mg tablet 1 tab PO DAILY 02/21/20 01/16/22 02/01/22 05:00 History citalopram 20 mg tablet 1 tab PO DAILY 02/21/20 01/16/22 02/01/22 05:00 History furosemide 20 mg tablet 1 tab PO DAILY 02/21/20 01/16/22 01/31/22 History hydroxyzine HCl 25 mg tablet 25 mg PO DAILY 02/21/20 01/16/22 01/31/22 History latanoprost 0.005 % eye drops 1 drp ophthalmic-Right DAILY@1700 02/21/20 01/16/22 01/31/22 History pentoxifylline 400 mg 1 tab PO BID 02/21/20 01/16/22 01/31/22 History tablet,extended release acetaminophen 500 mg tablet 1,000 mg PO TID@0800,1300,1700 12/07/21 01/16/22 Unknown History calcium carbonate 200 mg calcium 200 mg PO TID@0800,1200,1700 12/07/21 01/16/22 01/31/22 History (500 mg) chewable tablet (Calcium Antacid) cholecalciferol (vitamin D3) 1,250 1,250 mcg PO QMONTH 12/07/21 01/16/22 01/31/22 History mcg (50,000 unit) capsule erythromycin 5 mg/gram (0.5 %) eye 1 appl ophthalmic-Left MOTH@0900 12/07/21 01/16/22 01/31/22 History ointment ferrous sulfate 325 mg (65 mg 325 mg PO DAILY@1700 12/07/21 01/16/22 01/31/22 History iron) tablet insulin aspart U-100 100 unit/mL See Protocol subcut QIDACHS 12/07/21 01/16/22 Unknown History subcutaneous solution (Novolog U-100 Insulin aspart) insulin detemir U-100 100 unit/mL 100 unit subcut BID@0730,1800 12/07/21 01/16/22 01/31/22 History subcutaneous solution (Levemir U-100 Insulin) lisinopril 5 mg tablet 1 tab PO DAILY 12/07/21 01/16/22 01/31/22 History magnesium oxide 400 mg PO DAILY 12/07/21 01/16/22 01/31/22 History melatonin 5 mg tablet 5 mg PO DAILY@1700 12/07/21 01/16/22 01/31/22 History sucralfate 1 gram tablet 1 g PO QID 12/20/21 01/16/22 01/31/22 History albuterol sulfate 90 mcg/actuation 0 mcg inhalation 01/05/22 01/05/22 Unknown History aerosol inhaler bisacodyl 10 mg rectal suppository 10 mg CO DAILY PRN 01/05/22 01/05/22 Unknown History gabapentin 100 mg capsule 100 mg PO TID PRN Pain 01/05/22 01/16/22 01/31/22 History loperamide 2 mg capsule 2 mg PO Q4H PRN 01/05/22 01/05/22 Unknown History (Anti-Diarrheal (loperamide)) naloxone 4 mg/actuation nasal spray 1 spray intranasal Q2M 01/05/22 01/05/22 Unknown History Exam Airway Mallampati Class: II TM Dist: >3cm Neck ROM: Limited Partial: Upper Assessment and Plan Assessment Anesthesia Assessment: Anesthesia Plan Discussed Final Anesthetic Review Family History of Problems with Anesthesia: No History of Problems with Anesthesia: Yes (PONV) NPO: Yes ASA Class: III Final Preanesthetic Review: No Changes in Pt Med Stat, Meds/Allgs Chart Reviewed, Consent Obtained/Reviewed and Anes Risks/Benef Reviewed Patient Risk: Intermediate Procedure Risk: Intermediate Anesthetic Plan Anesthetic Plan: GA Disposition: Standard PACU
[2022-01-27 13:47] LABS: MANUAL DIFF FLAG NO
[2022-01-27 14:25] LABS: Basophils Absolute Auto 0.1 X10*3/uL (0.0-0.2); Basophils Percent Auto 1.1 % (0-2); Eosinophils Absolute Auto 0.5 X10*3/uL (0.0-0.4); Eosinophils Percent Auto 8.8 % (0-4); Hematocrit 33.5 % (42.0-52.0); Imm Gran Abs Auto 0.03 X10*3/uL (0.00-0.03); Imm Gran Pct Auto 0.6 % (0.0-0.4); Lymphocytes Percent Auto 18.2 % (20-40); Mean Corpuscular HGB Conc 32.8 g/dl (31.0-36.0); Mean Corpuscular Hemoglobin 29.8 pg (27.0-33.0); Mean Corpuscular Volume 90.8 fL (80.0-98.0); Monocytes Absolute Auto 0.5 X10*3/uL (0.1-1.2); Monocytes Percent Auto 9.6 % (2-11); Neutrophils Absolute Auto 3.3 x10*3/uL (2.0-8.3); Neutrophils Percent Auto 61.7 % (45-73); Red Blood Count 3.69 X10*6/uL (4.60-5.80); Red Cell Distribution Width 15.3 % (11.0-16.0); White Blood Count 5.3 X10*3/uL (4.8-10.8)
[2022-01-27 14:27] LABS: Platelet Count 54 X10*3/uL (160-400)
[2022-02-01] VITALS (23 sets, daily range): BP systolic 109–154; BP diastolic 56–89; PULSE 51–89; RESP 14–18; TEMP 36.2–36.6; O2SAT 92–99; BMI 28.0
[2022-02-01 07:16] LABS: COVID-19 Test Negative (Negative); IDNOW Serial# 9DB6401D
[2022-02-01 07:22] LABS: Glucose, Whole Blood 166 mg/dL (60-115)
[2022-02-01] MEDS: Lactated Ringers 1,000 ML 50 ML IVCONT (07:22)
--- NOTE | 2022-02-01 08:32 | PC.NURSE ---
platelet transfusion up at 0735 with out difficulties. vss, ls dim bases, clear upper with no resp distress. 15 minute check with no rxn noted , ls remain same and vss. no resp distress. txn complete at 822 without any rxn noted. ls remain clear upper and dim bases. no resp distress. line flushed with saline.
--- NOTE | 2022-02-01 10:45 | W.PM.OPN ---
Operative Note Operative Note Date of Service: 02/01/22 Narrative: Preoperative diagnosis: Biliary colic, cholelithiasis Postoperative diagnosis: Same Procedure: Laparoscopic cholecystectomy Surgeon: Frankie Ricks MD Web Graphic Designer: DEENA Bautista Anesthesia: General endotracheal Indications for procedure: 66-year-old male patient with repeated attacks of upper abdominal pain found to biliary sludge in the gallbladder. Patient presents today for laparoscopic possible open cholecystectomy. Operative findings: Cirrhotic liver , moderately inflamed gallbladder. Specimen: gallbladder Estimated blood loss: 10 mL Complications: non Procedure details: Patient was brought to the OR and placed in a supine position. After administering general anesthesia the patient's abdomen was prepped with ChloraPrep and draped in a sterile fashion. Local anesthesia consisting of 0.5% Sensorcaine without epinephrine was infiltrated in a periumbilical region. A 5 mm incision was made above the umbilicus in a transverse fashion. The Veress needle was then inserted while elevating abdominal cavity with towel clips. After positive drop test the abdomen was insufflated to a pressure of 15 mm of mercury. The Veress needle was then removed and a 5 mm trocar inserted. The camera was inserted in the abdomen explored. A 12 mm trocar was then placed in the epigastrium. Two 5 mm trocars placed in the right upper quadrant by the personnel security assistant. The patient was placed in reverse Trendelenburg positioning and rotated to the left. The gallbladder was grasped with the fundus and retracted cephalad by the personnel security assistant. The infundibulum was then grasped and retracted away from the liver bed, also by the personnel security assistant. The Dolphin dissected was then used by the surgeon to dissect the peritoneum off the infundibulum to reveal the junction with the cystic duct. Cystic artery was noted slightly medial and posterior to the cystic duct. After obtaining a critical view the cystic duct was doubly clipped and divided. The cystic artery was then doubly clipped and divided. The gallbladder was then dissected off the liver bed using electrocautery with an L hook. Hemostasis was assured all times using the electrocautery. When the gallbladder is completely dissected off the liver bed was placed in an Endo-Catch bag and brought out through the epigastric incision. The gallbladder was sent to pathology for further examination. The abdomen was then re-examined. The liver bed was irrigated and suctioned dry. combination of Surgicel and snow was applied to the liver bed. A Jt-Garrett drain was left in place in the liver bed and brought out through a lateral trocar site. This was secured to the skin using a 3-0 Nylon suture.No bile leak could be identified. CO2 was then evacuated and all trocars removed. Fascia was closed at the epigastric incision using a [id number] 0 Polysorb suture. Skin was closed in all incisions using a subcuticular 4 0 Polysorb suture by both the surgeon and personnel security assistant. Sterile dressings consisting of Steri-Strips, 2 x 2 gauze, and Tegaderm were then applied. The patient tolerated the procedure well. Sponge instrument and needle counts reported as correct. The patient was transferred to PACU in stable condition.
--- NOTE | 2022-02-01 10:54 | MHC.SHP ---
Pre-Procedural Eval Section A Date of Service: 02/01/22 The patient is an INPATIENT: No Changes since office visit: Yes Patient answered all questions; No Cold of Flu in the past 2 weeks, No New Medical Problems and No Changes in Medication The History & Physical has been completed within 30 days and I have reviewed it.: Yes Section B Chief Complaint: Biliary colic s/p laparoscopic cholecystectomy Allergies: Allergies Allergy/AdvReac Type Severity Reaction Status Date / Time colchicine Allergy Unknown diarrhea Verified 02/01/22 07:44 Plan Diagnosis/Plan: Unchanged I have reviewed the history and physical and performed a pertinent physical examination on my patient. No changes have occurred unless specified. Time Spent With Patient Time: Total time managing care of this patient today ____ minutes.
--- NOTE | 2022-02-01 11:42 | PHA.MEDREC ---
Pharmacy Consult ? Medication Reconciliation Pharmacy has completed the medication reconciliation.
[2022-02-01] MEDS: fentaNYL citrate/PF 100 MCG/2 ML VIAL 25 MCG IVPUSH ×2 (12:57→13:03)
--- NOTE | 2022-02-01 15:21 | HO.PM.IMCN ---
History of Present Illness Data of Consult Service Date: 02/01/22 Primary Care Provider: Simona Fregoso MD HPI Reason for consult: Medical management of diabetes, COPD Pt is a 66-year-old male with a PMH significant for paroxysmal AFib, CHF, BPH, COPD, insulin-dependent type 2 diabetes, GERD, hypothyroidism, depression, thrombocytopenia secondary to ITP, blindness of the left eye, gout, and history of upper GI bleed who is in the hospital s/p lap radha. A resident of [facility]. Hospitalist consult for medical management of patient. Patient seen and evaluated at bedside, seen sitting at side of bed eating. The patient complains of mild, constant right-sided upper abdominal pain at incision sites. Denies F/C, N/V. No chest pain/pressure, palpitations, SOB. Review of Systems Review of Systems: Mild, constant right upper quadrant abdominal pain located at surgical incision sites No F/C Denies N/V No chest pain/pressure No SOB Yes all other systems are reviewed and are negative [facility] Medical History Atrial fibrillation Blindness of left eye BPH (benign prostatic hyperplasia) CHF (congestive heart failure) COPD (chronic obstructive pulmonary disease) Diabetes Diverticulosis Gallbladder sludge GERD (gastroesophageal reflux disease) History of COVID-19 Hypothyroid Major depression Osteoarthritis [facility] in [facility] facility 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 Strain of left knee Thrombocytopenia Family History Maternal Grandmother Diabetes Mother Diabetes Surgical History Hx of eye surgery Social History Household Members: None Housing: [facility] Other:: [facility] Do you presently have visiting nurse or other home services: No Alcohol intake: current Alcohol intake frequency: holidays/special occasions only Alcohol type: beer Patient Tobacco Use Status: Former Tobacco user Quit Date: 10 yrs ago Tobacco use type: Cigarette Use of substances other than those prescribed or required for medical reasons: No Currently Displaying Signs/Symptoms of Drug Intoxication Withdrawal: No Are you DNR?: Yes Advance Directives: Yes Advance Directives on File: Yes Advance Directives Date on File: 02/20/20 service: No Current occupational status: retired [employer] Allergies Allergy/AdvReac Type Severity Reaction Status Date / Time colchicine Allergy Unknown diarrhea Verified 02/01/22 07:44 Active Medications: Current Medications Fentanyl (Fentanyl Citrate/Pf 100 Mcg/2 Ml Vial) 25 mcg IVPUSH Q5M PRN; Protocol PRN Reason: Pain, Moderate (Pain Scale 4-6 Last Admin: 02/01/22 13:03 Dose: 25 mcg Hydromorphone HCl (Hydromorphone Hcl 1 Mg/Ml Syringe) 0.5 mg IVPUSH Q4H PRN; Protocol PRN Reason: Pain, Severe (Pain Scale 7-10) Lactated Ringer's (Lr) 1,000 mls @ 50 mls/hr IVCONT .Q20H [facility] Last Admin: 02/01/22 07:22 Dose: 50 mls/hr Ondansetron HCl (Ondansetron Hcl 4 Mg/2 Ml Vial) 4 mg IVPUSH ONCE PRN PRN Reason: Nausea and Vomiting Oxycodone HCl (Oxycodone Hcl Immed Release 5 Mg Tablet) 5 mg PO Q6H PRN PRN Reason: Pain, Moderate (Pain Scale 4-6 Pharmacy Consult (Consult Rx Perform Med Rec) 1 each MISCELLANE ONCE PRN PRN Reason: Consult order Sodium Chloride (0.9 % Sodium Chloride Flush 3 Ml Syringe) 3 ml IVFLUSH QSHIFT [facility] Last Admin: 02/01/22 14:33 Dose: Not Given Home Medications Medication Instructions Recorded Confirmed Last Taken Type atorvastatin 10 mg tablet 1 tab PO DAILY@1700 02/21/20 01/16/22 01/31/22 History carvedilol 12.5 mg tablet 1 tab PO BID@0800,1700 02/21/20 01/16/22 02/01/22 05:00 History citalopram 10 mg tablet 1 tab PO DAILY 02/21/20 01/16/22 02/01/22 05:00 History citalopram 20 mg tablet 1 tab PO DAILY 02/21/20 01/16/22 02/01/22 05:00 History furosemide 20 mg tablet 1 tab PO DAILY 02/21/20 01/16/22 01/31/22 History hydroxyzine HCl 25 mg tablet 25 mg PO DAILY 02/21/20 01/16/22 01/31/22 History latanoprost 0.005 % eye drops 1 drp ophthalmic-Right DAILY@1700 02/21/20 01/16/22 01/31/22 History pentoxifylline 400 mg 1 tab PO BID 02/21/20 01/16/22 01/31/22 History tablet,extended release acetaminophen 500 mg tablet 1,000 mg PO TID@0800,1300,1700 12/07/21 01/16/22 Unknown History calcium carbonate 200 mg calcium 200 mg PO TID@0800,1200,1700 12/07/21 01/16/22 01/31/22 History (500 mg) chewable tablet (Calcium Antacid) cholecalciferol (vitamin D3) 1,250 1,250 mcg PO QMONTH 12/07/21 01/16/22 01/31/22 History mcg (50,000 unit) capsule erythromycin 5 mg/gram (0.5 %) eye 1 appl ophthalmic-Left MOTH@0900 12/07/21 01/16/22 01/31/22 History ointment ferrous sulfate 325 mg (65 mg 325 mg PO DAILY@1700 12/07/21 01/16/22 01/31/22 History iron) tablet insulin aspart U-100 100 unit/mL See Protocol subcut QIDACHS 12/07/21 01/16/22 Unknown History subcutaneous solution (Novolog U-100 Insulin aspart) insulin detemir U-100 100 unit/mL 50 unit subcut BID@0730,2000 12/07/21 02/01/22 01/31/22 History subcutaneous solution (Levemir U-100 Insulin) lisinopril 5 mg tablet 1 tab PO DAILY 12/07/21 01/16/22 01/31/22 History magnesium oxide 400 mg PO DAILY 12/07/21 01/16/22 01/31/22 History melatonin 5 mg tablet 5 mg PO DAILY@1700 12/07/21 01/16/22 01/31/22 History sucralfate 1 gram tablet 1 g PO QID 12/20/21 01/16/22 01/31/22 History gabapentin 100 mg capsule 100 mg PO TID PRN Pain 01/05/22 01/16/22 01/31/22 History naloxone 4 mg/actuation nasal spray 1 spray intranasal Q2M 01/05/22 02/01/22 Unknown History Physical Exam Vital Signs and Narrative: Vital Signs: Last Vital Signs Temp 97.5 F 02/01/22 15:16 Pulse 88 02/01/22 15:16 Resp 16 02/01/22 15:16 BP 114/58 L 02/01/22 15:16 Pulse Ox 97 02/01/22 15:16 O2 Del Method 02/01/22 15:16 O2 Flow Rate 2 02/01/22 14:08 BMI result Body Mass Index 28.0 General: AOx3, no acute distress Resp: CTA bilaterally CVS: S1, S2, RRR GI: +BS, NT, no distention Skin: No rash Neuro: Motor grossly intact Extremities: no edema Psych: Appropriate affect Results Labs CBC and Chem 7: 01/27/22 13:42 Labs: Laboratory Results - last 24 hr 01/27/22 02/01/22 02/01/22 13:46 06:30 07:02 POC Glucose 166 H COVID-19 (RATURO) Negative COVID-19 Clin Com See Note Blood Type O Positive Antibody Screen NEGATIVE Assessment and Plan (1) Hypothyroid: Status: Acute (2) COPD (chronic obstructive pulmonary disease): Status: Acute (3) CHF (congestive heart failure): Status: Acute (4) BPH (benign prostatic hyperplasia): Status: Acute (5) S/P cholecystectomy: Status: Acute Plan Pt is a 66-year-old male with a PMH significant for paroxysmal AFib, CHF, BPH, COPD, insulin-dependent type 2 diabetes, GERD, hypothyroidism, depression, thrombocytopenia secondary to ITP, blindness of the left eye, gout, and history of upper GI bleed who is in the hospital s/p ruben radha. A resident of [facility]. Hospitalist consult for medical management of patient. # s/p lap radha -- as per general surgery management # insulin-dependent type 2 diabetes - hold home meds -- ssi, lantus #HTN - continue home meds # paroxysmal atrial fibrillation- no RVR - continue home meds -Not on anticoagulation- hx GI bleeding #CHF without acute exacerbation unspecified type- euvolemic -Continue furosemide # hypothyroidism -continue levothyroxine # HLD -continue statin # depression -continue citalopram # chronic normocytic anemia-stable -continue ferrous sulfate #thrombocytopenia secondary to ITP -stable, at baseline # PAD -continue pentoxifylline #Gerd -continue ppi and carafate Thank you for allowing us to participate in the care of this pt. We will continue to follow. Time Spent With Patient Time: Total time managing care of this patient today ____ minutes.
[2022-02-01 15:27] LABS: Glucose, Whole Blood 198 mg/dL (60-115)
[2022-02-01] MEDS: carvediloL 12.5 MG TABLET PO (16:46)
[2022-02-01] MEDS: Melatonin 3 MG TABLET 6 MG PO (16:46)
[2022-02-01] MEDS: Atorvastatin Calcium 10 MG TABLET PO (16:46)
[2022-02-01] MEDS: Ferrous Sulfate 324 MG TABLET.DR PO (16:46)
[2022-02-01] MEDS: Acetaminophen 325 MG TABLET 975 MG PO (16:47)
[2022-02-01] MEDS: Omeprazole 40 MG CAPSULE.DR PO (16:47)
[2022-02-01] MEDS: Tranexamic Acid 1,000 MG in 0.9 % Sodium Chloride 50 ML 360 MG IV (17:15)
--- NOTE | 2022-02-01 17:27 | PC.NURSE ---
1700 pt noted to have blood saturating his abdominal dressing on right side at place of JOEY drain , and steri strip to mid right abdomen . Blood noted to pad underneath pt size of two dinner plates, dressings changed . JOEY drain emptied for a total of 160mls of bloody fluid .Dr. Ricks made aware, vss , new orders tranexamic acid , and platlets ,and labs .Will cont to monitor , pt complains of slight discomfort , pt refusing dinner at this time .
[2022-02-01 17:33] LABS: Hemoglobin 11.2 g/dl (14.0-18.0); Mean Platelet Volume 13.1 fL (9.4-12.4); Red Cell Distribution Width 15.6 % (11.0-16.0)
[2022-02-01 17:35] LABS: Mean Corpuscular HGB Conc 32.9 g/dl (31.0-36.0); Mean Corpuscular Hemoglobin 29.9 pg (27.0-33.0); Mean Corpuscular Volume 90.9 fL (80.0-98.0); Red Blood Count 3.74 X10*6/uL (4.60-5.80)
[2022-02-01 17:44] LABS: INTERNATIONAL NORM RATIO 1.2 (0.9-1.1); Prothrombin Time 14.3 SEC (10.0-13.1)
[2022-02-01 17:46] LABS: PLT ABN DIST 1
[2022-02-01 17:47] LABS: Platelet Count 50 X10*3/uL (160-400)
[2022-02-01] MEDS: HYDROmorphone HCl 1 MG/ML SYRINGE 0.5 MG IVPUSH (18:00)
[2022-02-01] MEDS: Pentoxifylline ER 400 MG TABLET.ER PO (19:16)
[2022-02-01] MEDS: 0.9 % Sodium Chloride Flush 3 ML SYRINGE IVFLUSH (19:16)
[2022-02-01 19:40] LABS: Glucose, Whole Blood 229 mg/dL (60-115)
[2022-02-02 00:53] VITALS: BP 112/57; PULSE 88; RESP 16; TEMP 36.5
[2022-02-02 01:08] VITALS: BP 121/63; PULSE 84; RESP 16; TEMP 36.6
[2022-02-02] MEDS: HYDROmorphone HCl 1 MG/ML SYRINGE 0.5 MG IVPUSH ×2 (01:12→14:49)
[2022-02-02 03:29] VITALS: BP 122/58; PULSE 83; RESP 18; TEMP 36.8; O2SAT 95
[2022-02-02] MEDS: Omeprazole 40 MG CAPSULE.DR PO ×2 (05:33→17:18)
[2022-02-02 06:39] LABS: MANUAL DIFF FLAG NO
[2022-02-02 06:52] LABS: Basophils Absolute Auto 0.1 X10*3/uL (0.0-0.2); Basophils Percent Auto 0.9 % (0-2); Eosinophils Absolute Auto 0.2 X10*3/uL (0.0-0.4); Eosinophils Percent Auto 3.1 % (0-4); Hematocrit 31.7 % (42.0-52.0); Hemoglobin 10.4 g/dl (14.0-18.0); Imm Gran Abs Auto 0.04 X10*3/uL (0.00-0.03); Imm Gran Pct Auto 0.6 % (0.0-0.4); Lymphocytes Absolute Auto 0.7 X10*3/uL (1.2-4.9); Lymphocytes Percent Auto 10.9 % (20-40); Mean Corpuscular HGB Conc 32.8 g/dl (31.0-36.0); Mean Corpuscular Hemoglobin 30.2 pg (27.0-33.0); Mean Corpuscular Volume 92.2 fL (80.0-98.0); Mean Platelet Volume 12.7 fL (9.4-12.4); Monocytes Absolute Auto 0.7 X10*3/uL (0.1-1.2); Monocytes Percent Auto 10.1 % (2-11); Neutrophils Absolute Auto 5.1 x10*3/uL (2.0-8.3); Neutrophils Percent Auto 74.4 % (45-73); Platelet Count 63 X10*3/uL (160-400); Red Blood Count 3.44 X10*6/uL (4.60-5.80); Red Cell Distribution Width 15.7 % (11.0-16.0); White Blood Count 6.8 X10*3/uL (4.8-10.8)
[2022-02-02 07:17] LABS: Anion Gap 14 (12-20); Blood Urea Nitrogen 11 mg/dL (9-16); Calcium 7.3 mg/dL (8.4-10.2); Carbon Dioxide 23 mmol/L (22-29); Chloride 106 mmol/L (96-108); Creatinine Clr Calc Pharmacy 84.9; Estimated Glomerular Filt Rate > 60; Glucose Random 163 mg/dL (60-115); Potassium 3.8 mmol/L (3.3-5.1); Sodium 139 mmol/L (135-145)
[2022-02-02 07:32] VITALS: BP 106/52; PULSE 71; RESP 17; TEMP 36.4; O2SAT 98
[2022-02-02] MEDS: Escitalopram Oxalate 5 MG TABLET PO (07:34)
[2022-02-02] MEDS: Pentoxifylline ER 400 MG TABLET.ER PO ×2 (07:34→21:43)
[2022-02-02] MEDS: carvediloL 12.5 MG TABLET PO ×2 (07:34→17:18)
[2022-02-02] MEDS: lisinopriL 5 MG TABLET PO (07:34)
[2022-02-02] MEDS: Acetaminophen 325 MG TABLET 975 MG PO ×3 (07:34→17:18)
[2022-02-02] MEDS: Escitalopram Oxalate 10 MG TABLET PO (07:34)
[2022-02-02] MEDS: Magnesium Oxide 400 MG TABLET PO (07:34)
[2022-02-02] MEDS: hydrOXYzine HCL 25 MG TABLET PO (07:34)
[2022-02-02] MEDS: Erythromycin Base 0.5% Oph Oin 1 GM TUBE 1 CM EYE-LEFT (07:35)
[2022-02-02] MEDS: 0.9 % Sodium Chloride Flush 3 ML SYRINGE IVFLUSH (07:38)
[2022-02-02 07:47] LABS: Glucose, Whole Blood 177 mg/dL (60-115)
--- NOTE | 2022-02-02 08:32 | PM.PNGS ---
Subjective Subjective Date of Service: 02/02/22 Interval history: Pod 1, patient having mild incisional pain, denies nausea or vomiting. Ate some food last night but does not like low-fat diet. Physical Exam Vital Signs: Vital Signs: Last Vital Signs Temp 97.5 F 02/02/22 07:32 Pulse 71 02/02/22 07:32 Resp 17 02/02/22 07:32 BP 106/52 L 02/02/22 07:32 Pulse Ox 98 02/02/22 07:32 O2 Del Method 02/02/22 07:32 O2 Flow Rate 2 02/01/22 14:08 BMI result Body Mass Index 28.0 Const: General: no acute distress Nutritional Appearance: well nourished Orientation/consciousness: patient oriented x3 Resp: Other: Breathing comfortably without respiratory distress GI: Other: Dressings were changed during the night due to bloody discharge. JOEY intact draining serosanguineous output. Skin: Other: Warm, dry, no rash Neuro: General: patient oriented x3 Objective Data Active Medications Acetaminophen (Acetaminophen 325 Mg Tablet) 975 mg PO TID@0800,1300,1700 [facility] Last Admin: 02/02/22 07:34 Dose: 975 mg Documented By: TERRIE Atorvastatin Calcium (Atorvastatin Calcium 10 Mg Tablet) 10 mg PO DAILY@1700 [facility] Last Admin: 02/01/22 16:46 Dose: 10 mg Documented By: TERRIE Calcium Carbonate (Calcium Carbonate 500 Mg Tablet) 250 mg PO TID@0800,1200,1700 [facility] Last Admin: 02/02/22 07:35 Dose: 250 mg Documented By: TERRIE Carvedilol (Carvedilol 12.5 Mg Tablet) 12.5 mg PO BID@0800,1700 [facility]; Protocol Last Admin: 02/02/22 07:34 Dose: 12.5 mg Documented By: TERRIE Dextrose (Dextrose 50 % 25 Gm/50 Ml Syringe) 25 gm IVPUSH Q15M PRN; Protocol PRN Reason: per Hypoglycemia Standing Ord. Erythromycin (Erythromycin Base 0.5% Oph Oin 1 Gm Tube) 1 cm EYE-LEFT MOTH@0900 [facility] Last Admin: 02/02/22 07:35 Dose: 1 cm Documented By: TERRIE Escitalopram Oxalate (Escitalopram Oxalate 5 Mg Tablet) 5 mg PO DAILY [facility] Last Admin: 02/02/22 07:34 Dose: 5 mg Documented By: TERRIE Escitalopram Oxalate (Escitalopram Oxalate 10 Mg Tablet) 10 mg PO DAILY [facility] Last Admin: 02/02/22 07:34 Dose: 10 mg Documented By: TERRIE Fentanyl (Fentanyl Citrate/Pf 100 Mcg/2 Ml Vial) 25 mcg IVPUSH Q5M PRN; Protocol PRN Reason: Pain, Moderate (Pain Scale 4-6 Last Admin: 02/01/22 13:03 Dose: 25 mcg Documented By: KEVIN Ferrous Sulfate (Ferrous Sulfate 324 Mg Tablet.Dr) 324 mg PO DAILY@1700 [facility] Last Admin: 02/01/22 16:46 Dose: 324 mg Documented By: TERRIE Furosemide (Furosemide 20 Mg Tablet) 20 mg PO DAILY [facility]; Protocol Last Admin: 02/02/22 07:44 Dose: Not Given Documented By: TERRIE Non-Admin Reason: Patient Refused Glucose (Glucose Gel 15 Gm Gel..Gram.) 15 gm PO Q15M PRN; Protocol PRN Reason: per Hypoglycemia Standing Ord. Hydromorphone HCl (Hydromorphone Hcl 1 Mg/Ml Syringe) 0.5 mg IVPUSH Q4H PRN; Protocol PRN Reason: Pain, Severe (Pain Scale 7-10) Last Admin: 02/02/22 01:12 Dose: 0.5 mg Documented By: AME Hydroxyzine HCl (Hydroxyzine Hcl 25 Mg Tablet) 25 mg PO DAILY [facility] Last Admin: 02/02/22 07:34 Dose: 25 mg Documented By: TERRIE Lactated Ringer's (Lr) 1,000 mls @ 50 mls/hr IVCONT .Q20H [facility] Last Admin: 02/02/22 05:34 Dose: Not Given Documented By: AME Non-Admin Reason: IV Running Insulin Glargine (Insulin Glargine,Hum.Rec.Anlog 100 Unit/Ml 10 Ml Vial) 35 unit SUBCUT BID [facility] Last Admin: 02/02/22 07:31 Dose: Not Given Documented By: TERRIE Non-Admin Reason: Patient Refused Insulin Human Lispro (Insulin Lispro 100 Unit/Ml 3 Ml Vial) 0 unit SUBCUT QIDACHS [facility]; Protocol Last Admin: 02/02/22 07:31 Dose: Not Given Documented By: TERRIE Non-Admin Reason: Patient Refused Latanoprost (Latanoprost 0.005 % Ophth Kathy 2.5 Ml Drops) 1 drop EYE-RIGHT DAILY@1700 [facility] Last Admin: 02/01/22 16:39 Dose: Not Given Documented By: TERRIE Non-Admin Reason: Med Not Available Lisinopril (Lisinopril 5 Mg Tablet) 5 mg PO DAILY [facility]; Protocol Last Admin: 02/02/22 07:34 Dose: 5 mg Documented By: TERRIE Magnesium Oxide (Magnesium Oxide 400 Mg Tablet) 400 mg PO DAILY [facility] Last Admin: 02/02/22 07:34 Dose: 400 mg Documented By: TERRIE Melatonin (Melatonin 3 Mg Tablet) 6 mg PO DAILY@1700 [facility] Last Admin: 02/01/22 16:46 Dose: 6 mg Documented By: TERRIE Omeprazole (Omeprazole 40 Mg Capsule.Dr) 40 mg PO BID@0630,1630 [facility] Last Admin: 02/02/22 05:33 Dose: 40 mg Documented By: AME Ondansetron HCl (Ondansetron Hcl 4 Mg/2 Ml Vial) 4 mg IVPUSH ONCE PRN PRN Reason: Nausea and Vomiting Oxycodone HCl (Oxycodone Hcl Immed Release 5 Mg Tablet) 5 mg PO Q6H PRN PRN Reason: Pain, Moderate (Pain Scale 4-6 Pentoxifylline (Pentoxifylline Er 400 Mg Tablet.Er) 400 mg PO BID [facility] Last Admin: 02/02/22 07:34 Dose: 400 mg Documented By: TERRIE Pharmacy Consult (Consult Rx Perform Med Rec) 1 each MISCELLANE ONCE PRN PRN Reason: Consult order Sodium Chloride (0.9 % Sodium Chloride Flush 3 Ml Syringe) 3 ml IVFLUSH QSHIFT [facility] Last Admin: 02/02/22 07:38 Dose: 3 ml Documented By: TERRIE Labs CBC & Chem 7: 02/02/22 05:42 02/02/22 05:42 Labs: Laboratory Results - last 24 hr 01/27/22 02/01/22 02/01/22 13:46 15:23 17:22 MCV 90.9 MCH 29.9 MCHC 32.9 RDW 15.6 Plt Count 50 L MPV 13.1 H Immature Gran % (Auto) Neut % (Auto) Lymph % (Auto) [place] % (Auto) Eos % (Auto) Baso % (Auto) Lymph # (Auto) [place] # (Auto) Eos # (Auto) Baso # (Auto) Abs Immat Gran (auto) Absolute Neuts (auto) Absolute Nucleated RBC 0.000 Nucleated RBC % (auto) 0.0 PT INR Anion Gap Estim Creat Clear Calc Estimated GFR POC Glucose 198 H Random Glucose Calcium Blood Type O Positive Antibody Screen NEGATIVE 02/01/22 02/01/22 02/01/22 17:22 17:22 19:33 MCV MCH MCHC RDW Plt Count MPV Immature Gran % (Auto) Neut % (Auto) Lymph % (Auto) [place] % (Auto) Eos % (Auto) Baso % (Auto) Lymph # (Auto) [place] # (Auto) Eos # (Auto) Baso # (Auto) Abs Immat Gran (auto) Absolute Neuts (auto) Absolute Nucleated RBC Nucleated RBC % (auto) PT 14.3 H INR 1.2 H Anion Gap Estim Creat Clear Calc Estimated GFR POC Glucose 229 H Random Glucose Calcium Blood Type O Positive Antibody Screen NEGATIVE 02/02/22 02/02/22 02/02/22 05:42 05:42 07:30 MCV 92.2 MCH 30.2 MCHC 32.8 RDW 15.7 Plt Count 63 L D MPV 12.7 H Immature Gran % (Auto) 0.6 H Neut % (Auto) 74.4 H Lymph % (Auto) 10.9 L [place] % (Auto) 10.1 Eos % (Auto) 3.1 Baso % (Auto) 0.9 Lymph # (Auto) 0.7 L [place] # (Auto) 0.7 Eos # (Auto) 0.2 Baso # (Auto) 0.1 Abs Immat Gran (auto) 0.04 H Absolute Neuts (auto) 5.1 Absolute Nucleated RBC 0.000 Nucleated RBC % (auto) 0.0 PT INR Anion Gap 14 Estim Creat Clear Calc 84.9 Estimated GFR > 60 POC Glucose 177 H Random Glucose 163 H Calcium 7.3 L Blood Type Antibody Screen Procedures Date of Service Date of Service: 02/02/22 Progress Note: A&P Assessment and plan (1) S/P cholecystectomy: Status: Acute Plan 66-year-old male patient with history of chronic abdominal pain in the right upper quadrant, status post laparoscopic cholecystectomy yesterday. Operative findings included cirrhotic changes to liver. Patient had some increased discharge from overnight and received another unit of platelets and FFP. Will monitor output during the day today. H&H dropped slightly today. Continue low-fat diet. Patient requires continued hospitalization due to JOEY output. Time Spent With Patient Time: Total time managing care of this patient today ____ minutes. Quality Stroke Does the patient have a stroke diagnosis?: No VTE Prior VTE?: No VTE Risk Level:: Surgical - high VTE Device Contraindication: N/A - Device Ordered VTE Drug Contraindication: Treatment Not Tolerated
--- NOTE | 2022-02-02 09:24 | MHC.CM.PN ---
Addendum entered by Elizabeth Bone RN 02/02/22 09:43: CM RECEIVED CALL BACK FROM FATHER PARENT WHO REPORTS HE WILL BE IN THIS AFTERNOON AND PREFERS CM LEAVES IMM AT BEDSIDE, COPY OF HCP IN CHART. Original Note: CM ATTEMPTED TO CONTACT PT'S BROTHER FATHER PARENT TO DELIVER IMM AT 9:23AM [phone], NO ANSWER, DETAILED MESSAGE LEFT AND IMM TO BE MAILED (CERTIFIED), PT IS A RESIDENT AT [facility] AND PLAN WILL BE TO RETURN VIA BLS TRANSPORT. PER SURGICAL NOTES PT WILL REMAIN INPT OVERNIGHT DUE TO INCREASED JOEY DRAIN DRAINAGE AND DROP IN H&H, CM WILL CONT TO MONIOTR D/C NEEDS.
--- NOTE | 2022-02-02 09:41 | HO.POSTANES ---
Post Anesthesia Evaluation Post Anesthesia Evaluation Vital Signs: Vital Signs Temp Pulse Resp BP Pulse Ox O2 Del Method 02/02/22 07:32 97.5 F 71 17 106/52 L 98 Room Air 02/02/22 03:29 98.2 F 83 18 122/58 L 95 Room Air 02/02/22 01:08 97.8 F 84 16 121/63 02/02/22 00:53 97.7 F 88 16 112/57 L Anesthesia: General Endotracheal-GETA Mental Status: Awake Pain Control: Satisfactory Nausea/Vomiting: None Hydration: Adequate Anesthesia-Related Issues: No Anes. Related Issues
[2022-02-02] MEDS: oxyCODONE HCl Immed Release 5 MG TABLET PO ×2 (09:51→21:43)
--- NOTE | 2022-02-02 10:48 | HO.PM.IMCN ---
History of Present Illness Data of Consult Service Date: 02/02/22 Primary Care Provider: Simona Fregoso MD [facility] Reason for consult: Medical management of diabetes, COPD Pt is a 66-year-old male with a PMH significant for paroxysmal AFib, CHF, BPH, COPD, insulin-dependent type 2 diabetes, GERD, hypothyroidism, depression, thrombocytopenia secondary to ITP, blindness of the left eye, gout, and history of upper GI bleed who is in the hospital s/p [facility]. A resident of [facility].? Patient had increased discharge from overnight, received platelets and FFP. Patient continues to complain of mild incisional pain. Patient has no other medical complaints at this time. Denies chest pain/pressure, SOB, palpitations. No nausea, vomiting, fever, chills. Patient does not like his low-fat diet, but is aware that he must maintain a diabetic diet. Patient also refused insulin last night and again this morning, saying that he did want to become hypoglycemic because he has not been eating much. 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 Do you presently have visiting nurse or other home services: No Alcohol intake: current Alcohol intake frequency: holidays/special occasions only Alcohol type: beer Patient Tobacco Use Status: Former Tobacco user Quit Date: 10 yrs ago Tobacco use type: Cigarette Use of substances other than those prescribed or required for medical reasons: No Currently Displaying Signs/Symptoms of Drug Intoxication Withdrawal: No Are you DNR?: Yes Advance Directives: Yes Advance Directives on File: Yes Advance Directives Date on File: 02/20/20 service: No Current occupational status: retired Meds Allergies Allergy/AdvReac Type Severity Reaction Status Date / Time colchicine Allergy Unknown diarrhea Verified 02/01/22 07:44 Active Medications: Current Medications Acetaminophen (Acetaminophen 325 Mg Tablet) 975 mg PO TID@0800,1300,1700 [facility] Last Admin: 02/02/22 07:34 Dose: 975 mg Atorvastatin Calcium (Atorvastatin Calcium 10 Mg Tablet) 10 mg PO DAILY@1700 [facility] Last Admin: 02/01/22 16:46 Dose: 10 mg Calcium Carbonate (Calcium Carbonate 500 Mg Tablet) 250 mg PO TID@0800,1200,1700 [facility] Last Admin: 02/02/22 07:35 Dose: 250 mg Carvedilol (Carvedilol 12.5 Mg Tablet) 12.5 mg PO BID@0800,1700 [facility]; Protocol Last Admin: 02/02/22 07:34 Dose: 12.5 mg Dextrose (Dextrose 50 % 25 Gm/50 Ml Syringe) 25 gm IVPUSH Q15M PRN; Protocol PRN Reason: per Hypoglycemia Standing Ord. Erythromycin (Erythromycin Base 0.5% Oph Oin 1 Gm Tube) 1 cm EYE-LEFT MOTH@0900 [facility] Last Admin: 02/02/22 07:35 Dose: 1 cm Escitalopram Oxalate (Escitalopram Oxalate 5 Mg Tablet) 5 mg PO DAILY [facility] Last Admin: 02/02/22 07:34 Dose: 5 mg Escitalopram Oxalate (Escitalopram Oxalate 10 Mg Tablet) 10 mg PO DAILY [facility] Last Admin: 02/02/22 07:34 Dose: 10 mg Fentanyl (Fentanyl Citrate/Pf 100 Mcg/2 Ml Vial) 25 mcg IVPUSH Q5M PRN; Protocol PRN Reason: Pain, Moderate (Pain Scale 4-6 Last Admin: 02/01/22 13:03 Dose: 25 mcg Ferrous Sulfate (Ferrous Sulfate 324 Mg Tablet.Dr) 324 mg PO DAILY@1700 [facility] Last Admin: 02/01/22 16:46 Dose: 324 mg Furosemide (Furosemide 20 Mg Tablet) 20 mg PO DAILY [facility]; Protocol Last Admin: 02/02/22 07:44 Dose: Not Given Glucose (Glucose Gel 15 Gm Gel..Gram.) 15 gm PO Q15M PRN; Protocol PRN Reason: per Hypoglycemia Standing Ord. Hydromorphone HCl (Hydromorphone Hcl 1 Mg/Ml Syringe) 0.5 mg IVPUSH Q4H PRN; Protocol PRN Reason: Pain, Severe (Pain Scale 7-10) Last Admin: 02/02/22 01:12 Dose: 0.5 mg Hydroxyzine HCl (Hydroxyzine Hcl 25 Mg Tablet) 25 mg PO DAILY [facility] Last Admin: 02/02/22 07:34 Dose: 25 mg Lactated Ringer's (Lr) 1,000 mls @ 50 mls/hr IVCONT .Q20H [facility] Last Infusion: 02/02/22 10:22 Dose: Infused Insulin Glargine (Insulin Glargine,Hum.Rec.Anlog 100 Unit/Ml 10 Ml Vial) 35 unit SUBCUT BID [facility] Last Admin: 02/02/22 07:31 Dose: Not Given Insulin Human Lispro (Insulin Lispro 100 Unit/Ml 3 Ml Vial) 0 unit SUBCUT QIDACHS [facility]; Protocol Last Admin: 02/02/22 07:31 Dose: Not Given Latanoprost (Latanoprost 0.005 % Ophth Kathy 2.5 Ml Drops) 1 drop EYE-RIGHT DAILY@1700 [facility] Last Admin: 02/01/22 16:39 Dose: Not Given Lisinopril (Lisinopril 5 Mg Tablet) 5 mg PO DAILY [facility]; Protocol Last Admin: 02/02/22 07:34 Dose: 5 mg Magnesium Oxide (Magnesium Oxide 400 Mg Tablet) 400 mg PO DAILY [facility] Last Admin: 02/02/22 07:34 Dose: 400 mg Melatonin (Melatonin 3 Mg Tablet) 6 mg PO DAILY@1700 [facility] Last Admin: 02/01/22 16:46 Dose: 6 mg Omeprazole (Omeprazole 40 Mg Capsule.Dr) 40 mg PO BID@0630,1630 [facility] Last Admin: 02/02/22 05:33 Dose: 40 mg Ondansetron HCl (Ondansetron Hcl 4 Mg/2 Ml Vial) 4 mg IVPUSH ONCE PRN PRN Reason: Nausea and Vomiting Oxycodone HCl (Oxycodone Hcl Immed Release 5 Mg Tablet) 5 mg PO Q6H PRN PRN Reason: Pain, Moderate (Pain Scale 4-6 Last Admin: 02/02/22 09:51 Dose: 5 mg Pentoxifylline (Pentoxifylline Er 400 Mg Tablet.Er) 400 mg PO BID [facility] Last Admin: 02/02/22 07:34 Dose: 400 mg Pharmacy Consult (Consult Rx Perform Med Rec) 1 each MISCELLANE ONCE PRN PRN Reason: Consult order Sodium Chloride (0.9 % Sodium Chloride Flush 3 Ml Syringe) 3 ml IVFLUSH QSHIFT [facility] Last Admin: 02/02/22 07:38 Dose: 3 ml Home Medications Medication Instructions Recorded Confirmed Last Taken Type atorvastatin 10 mg tablet 1 tab PO DAILY@1700 02/21/20 01/16/22 01/31/22 History carvedilol 12.5 mg tablet 1 tab PO BID@0800,1700 02/21/20 01/16/22 02/01/22 05:00 History citalopram 10 mg tablet 1 tab PO DAILY 02/21/20 01/16/22 02/01/22 05:00 History citalopram 20 mg tablet 1 tab PO DAILY 02/21/20 01/16/22 02/01/22 05:00 History furosemide 20 mg tablet 1 tab PO DAILY 02/21/20 01/16/22 01/31/22 History hydroxyzine HCl 25 mg tablet 25 mg PO DAILY 02/21/20 01/16/22 01/31/22 History latanoprost 0.005 % eye drops 1 drp ophthalmic-Right DAILY@1700 02/21/20 01/16/22 01/31/22 History pentoxifylline 400 mg 1 tab PO BID 02/21/20 01/16/22 01/31/22 History tablet,extended release acetaminophen 500 mg tablet 1,000 mg PO TID@0800,1300,1700 12/07/21 01/16/22 Unknown History calcium carbonate 200 mg calcium 200 mg PO TID@0800,1200,1700 12/07/21 01/16/22 01/31/22 History (500 mg) chewable tablet (Calcium Antacid) cholecalciferol (vitamin D3) 1,250 1,250 mcg PO QMONTH 12/07/21 01/16/22 01/31/22 History mcg (50,000 unit) capsule erythromycin 5 mg/gram (0.5 %) eye 1 appl ophthalmic-Left MOTH@0900 12/07/21 01/16/22 01/31/22 History ointment ferrous sulfate 325 mg (65 mg 325 mg PO DAILY@1700 12/07/21 01/16/22 01/31/22 History iron) tablet insulin aspart U-100 100 unit/mL See Protocol subcut QIDACHS 12/07/21 01/16/22 Unknown History subcutaneous solution (Novolog U-100 Insulin aspart) insulin detemir U-100 100 unit/mL 50 unit subcut BID@07,199912/07/21 02/01/22 01/31/22 History subcutaneous solution (Levemir U-100 Insulin) lisinopril 5 mg tablet 1 tab PO DAILY 12/07/21 01/16/22 01/31/22 History magnesium oxide 400 mg PO DAILY 12/07/21 01/16/22 01/31/22 History melatonin 5 mg tablet 5 mg PO DAILY@1700 12/07/21 01/16/22 01/31/22 History sucralfate 1 gram tablet 1 g PO QID 12/20/21 01/16/22 01/31/22 History gabapentin 100 mg capsule 100 mg PO TID PRN Pain 01/05/22 01/16/22 01/31/22 History naloxone 4 mg/actuation nasal spray 1 spray intranasal Q2M 01/05/22 02/01/22 Unknown History Physical Exam Vital Signs and Narrative: Vital Signs: Last Vital Signs Temp 97.5 F 02/02/22 07:32 Pulse 71 02/02/22 07:32 Resp 17 02/02/22 07:32 BP 106/52 L 02/02/22 07:32 Pulse Ox 98 02/02/22 07:32 O2 Del Method 02/02/22 07:32 O2 Flow Rate 2 02/01/22 14:08 BMI result Body Mass Index 28.0 General: AOx3, no acute distress Resp: CTA bilaterally CVS: S1, S2, RRR GI: +BS, NT, no distention. Some bloody discharge seen on dressing; JOEY drain in place Skin: No rash Neuro: Motor grossly intact Extremities: no edema Psych: Appropriate affect Results Labs CBC and Chem 7: 02/02/22 05:42 02/02/22 05:42 Labs: Laboratory Results - last 24 hr 01/27/22 02/01/22 02/01/22 13:46 15:23 17:22 MCV 90.9 MCH 29.9 MCHC 32.9 RDW 15.6 Plt Count 50 L MPV 13.1 H Immature Gran % (Auto) Neut % (Auto) Lymph % (Auto) [place] % (Auto) Eos % (Auto) Baso % (Auto) Lymph # (Auto) [place] # (Auto) Eos # (Auto) Baso # (Auto) Abs Immat Gran (auto) Absolute Neuts (auto) Absolute Nucleated RBC 0.000 Nucleated RBC % (auto) 0.0 PT INR Anion Gap Estim Creat Clear Calc Estimated GFR POC Glucose 198 H Random Glucose Calcium Blood Type O Positive Antibody Screen NEGATIVE 02/01/22 02/01/22 02/01/22 17:22 17:22 19:33 MCV MCH MCHC RDW Plt Count MPV Immature Gran % (Auto) Neut % (Auto) Lymph % (Auto) [place] % (Auto) Eos % (Auto) Baso % (Auto) Lymph # (Auto) [place] # (Auto) Eos # (Auto) Baso # (Auto) Abs Immat Gran (auto) Absolute Neuts (auto) Absolute Nucleated RBC Nucleated RBC % (auto) PT 14.3 H INR 1.2 H Anion Gap Estim Creat Clear Calc Estimated GFR POC Glucose 229 H Random Glucose Calcium Blood Type O Positive Antibody Screen NEGATIVE 02/02/22 02/02/22 02/02/22 05:42 05:42 07:30 MCV 92.2 MCH 30.2 MCHC 32.8 RDW 15.7 Plt Count 63 L D MPV 12.7 H Immature Gran % (Auto) 0.6 H Neut % (Auto) 74.4 H Lymph % (Auto) 10.9 L [place] % (Auto) 10.1 Eos % (Auto) 3.1 Baso % (Auto) 0.9 Lymph # (Auto) 0.7 L [place] # (Auto) 0.7 Eos # (Auto) 0.2 Baso # (Auto) 0.1 Abs Immat Gran (auto) 0.04 H Absolute Neuts (auto) 5.1 Absolute Nucleated RBC 0.000 Nucleated RBC % (auto) 0.0 PT INR Anion Gap 14 Estim Creat Clear Calc 84.9 Estimated GFR > 60 POC Glucose 177 H Random Glucose 163 H Calcium 7.3 L Blood Type Antibody Screen Assessment and Plan (1) S/P cholecystectomy: Status: Acute Plan Pt is a 66-year-old male with a PMH significant for paroxysmal AFib, CHF, BPH, COPD, insulin-dependent type 2 diabetes, GERD, hypothyroidism, depression, thrombocytopenia secondary to ITP, blindness of the left eye, gout, and history of upper GI bleed who is in the hospital s/p [facility]. A resident of [facility].? Hospitalist consult for medical management of patient. # s/p [facility] -- as per general surgery management # insulin-dependent type 2 diabetes -- pt has been refusing insulin because d/t not eating much; latest POC glucose 177 -- hold home meds -- ssi, lantus #HTN - continue home meds # paroxysmal atrial fibrillation- no RVR - continue home meds -Not on anticoagulation- hx GI bleeding #CHF without acute exacerbation unspecified type- euvolemic -Continue furosemide # hypothyroidism -continue levothyroxine # HLD -continue statin # hypocalcemia -- chronic -- continue home meds # depression -continue citalopram # chronic normocytic anemia-stable -continue ferrous sulfate #thrombocytopenia secondary to ITP -stable, at baseline # PAD -continue pentoxifylline #Gerd -continue ppi and carafate Time Spent With Patient Time: Total time managing care of this patient today ____ minutes.
[2022-02-02 11:24] LABS: Glucose, Whole Blood 170 mg/dL (60-115)
[2022-02-02 16:07] VITALS: BP 109/53; PULSE 65; RESP 18; TEMP 36.5; O2SAT 95
[2022-02-02 16:17] LABS: Glucose, Whole Blood 160 mg/dL (60-115)
[2022-02-02] MEDS: Atorvastatin Calcium 10 MG TABLET PO (17:18)
[2022-02-02] MEDS: Ferrous Sulfate 324 MG TABLET.DR PO (17:18)
[2022-02-02] MEDS: Melatonin 3 MG TABLET 6 MG PO (17:18)
[2022-02-02 20:16] VITALS: BP 106/57; PULSE 71; RESP 18; TEMP 36.6; O2SAT 96
[2022-02-02 20:23] LABS: Glucose, Whole Blood 174 mg/dL (60-115)
[2022-02-02] MEDS: Lactated Ringers 1,000 ML 100 ML IVCONT (21:48)
[2022-02-03] MEDS: Omeprazole 40 MG CAPSULE.DR PO ×2 (03:36→16:03)
[2022-02-03] MEDS: oxyCODONE HCl Immed Release 5 MG TABLET PO ×2 (03:36→05:54)
[2022-02-03 04:00] VITALS: BP 135/71; PULSE 72; RESP 18; TEMP 36.8; O2SAT 95
[2022-02-03 07:34] LABS: Glucose, Whole Blood 161 mg/dL (60-115)
[2022-02-03 08:00] VITALS: BP 138/65; PULSE 70; RESP 17; TEMP 36.9; O2SAT 96
--- NOTE | 2022-02-03 08:56 | P.PNGS_ITS ---
Subjective Subjective Date of Service: 02/03/22 <Hue Hunt PA-C - Last Filed: 02/03/22 09:01> 02/03/22 <Frankie Ricks MD - Last Filed: 02/03/22 12:29> Interval history: Continues to have mild pain at the drain site. Some nausea as well but was able to eat all of breakfast. <Hue Hunt PA-C - Last Filed: 02/03/22 09:01> Physical Exam Vital Signs: Vital Signs: Last Vital Signs Temp 98.4 F 02/03/22 08:00 Pulse 70 02/03/22 08:00 Resp 17 02/03/22 08:00 BP 138/65 02/03/22 08:00 Pulse Ox 96 02/03/22 08:00 O2 Del Method 02/03/22 08:00 O2 Flow Rate 2 02/01/22 14:08 BMI result Body Mass Index 28.0 <Hue Hunt PA-C - Last Filed: 02/03/22 09:01> Const: General: comfortable, no acute distress and alert <Hue Hunt PA-C - Last Filed: 02/03/22 09:01> Orientation/consciousness: patient oriented x3 <Hue Hunt PA-C - Last Filed: 02/03/22 09:01> Resp: Effort & Inspection: normal respiratory effort <Hue Hunt PA-C - Last Filed: 02/03/22 09:01> Cardio: Rate: regular rate <Hue Hunt PA-C - Last Filed: 02/03/22 09:01> GI: Other: round, JOEY drain with sanguineous output, dressing saturated <Hue Hunt PA-C - Last Filed: 02/03/22 09:01> Inspection: Yes incision (dressings c/d/i) <KATHY Bautista Last Filed: 02/03/22 09:01> Palpation (GI): Soft to palpation, Tenderness to palpation present (GI) (mild, incisional), no guarding and not rigid <KATHY Bautista Last Filed: 02/03/22 09:01> Percussion: Yes normal to percussion <Hue Hunt PA-C - Last Filed: 02/03/22 09:01> Skin: General skin exam: no rashes or lesions noted <KATHY Bautista Last Filed: 02/03/22 09:01> Neuro: General: patient oriented x3 <KATHY Bautista Last Filed: 02/03/22 09:01> Extrem: General: No no pedal edema <KATHY Bautista Last Filed: 02/03/22 09:01> Objective Data Active Medications Acetaminophen (Acetaminophen 325 Mg Tablet) 975 mg PO TID@0800,1300,1700 [facility] Last Admin: 02/02/22 17:18 Dose: 975 mg Documented By: TERRIE Albuterol Sulfate (Albuterol Sulfate 90 Mcg 8 Gm Inhaler) 2 puff INHALE RQ4H PRN PRN Reason: Wheezing/congestion Atorvastatin Calcium (Atorvastatin Calcium 10 Mg Tablet) 10 mg PO DAILY@1700 [facility] Last Admin: 02/02/22 17:18 Dose: 10 mg Documented By: TERRIE Calcium Carbonate (Calcium Carbonate 500 Mg Tablet) 250 mg PO TID@0800,1200,1700 [facility] Last Admin: 02/02/22 17:18 Dose: 250 mg Documented By: TERRIE Carvedilol (Carvedilol 12.5 Mg Tablet) 12.5 mg PO BID@0800,1700 [facility]; Protocol Last Admin: 02/02/22 17:18 Dose: 12.5 mg Documented By: TERRIE Dextrose (Dextrose 50 % 25 Gm/50 Ml Syringe) 25 gm IVPUSH Q15M PRN; Protocol PRN Reason: per Hypoglycemia Standing Ord. Erythromycin (Erythromycin Base 0.5% Oph Oin 1 Gm Tube) 1 cm EYE-LEFT MOTH@0900 [facility] Last Admin: 02/02/22 07:35 Dose: 1 cm Documented By: TERRIE Escitalopram Oxalate (Escitalopram Oxalate 5 Mg Tablet) 5 mg PO DAILY [facility] Last Admin: 02/02/22 07:34 Dose: 5 mg Documented By: TERRIE Escitalopram Oxalate (Escitalopram Oxalate 10 Mg Tablet) 10 mg PO DAILY [facility] Last Admin: 02/02/22 07:34 Dose: 10 mg Documented By: TERRIE Fentanyl (Fentanyl Citrate/Pf 100 Mcg/2 Ml Vial) 25 mcg IVPUSH Q5M PRN; Protocol PRN Reason: Pain, Moderate (Pain Scale 4-6 Last Admin: 02/01/22 13:03 Dose: 25 mcg Documented By: KEVIN Ferrous Sulfate (Ferrous Sulfate 324 Mg Tablet.Dr) 324 mg PO DAILY@1700 [facility] Last Admin: 02/02/22 17:18 Dose: 324 mg Documented By: TERRIE Furosemide (Furosemide 20 Mg Tablet) 20 mg PO DAILY [facility]; Protocol Last Admin: 02/03/22 07:37 Dose: Not Given Documented By: JOHAN Non-Admin Reason: Patient Refused Glucose (Glucose Gel 15 Gm Gel..Gram.) 15 gm PO Q15M PRN; Protocol PRN Reason: per Hypoglycemia Standing Ord. Hydromorphone HCl (Hydromorphone Hcl 1 Mg/Ml Syringe) 0.5 mg IVPUSH Q4H PRN; Protocol PRN Reason: Pain, Severe (Pain Scale 7-10) Last Admin: 02/02/22 14:49 Dose: 0.5 mg Documented By: TERRIE Hydroxyzine HCl (Hydroxyzine Hcl 25 Mg Tablet) 25 mg PO DAILY [facility] Last Admin: 02/02/22 07:34 Dose: 25 mg Documented By: TERRIE Insulin Glargine (Insulin Glargine,Hum.Rec.Anlog 100 Unit/Ml 10 Ml Vial) 35 unit SUBCUT BID [facility] Last Admin: 02/02/22 21:47 Dose: Not Given Documented By: JAMIE Non-Admin Reason: Patient Refused Insulin Human Lispro (Insulin Lispro 100 Unit/Ml 3 Ml Vial) 0 unit SUBCUT QIDACHS [facility]; Protocol Last Admin: 02/03/22 07:36 Dose: Not Given Documented By: JOHAN Non-Admin Reason: Patient Refused Latanoprost (Latanoprost 0.005 % Ophth Kathy 2.5 Ml Drops) 1 drop EYE-RIGHT DAILY@1700 [facility] Last Admin: 02/02/22 17:23 Dose: Not Given Documented By: TERRIE Non-Admin Reason: Med Not Available Lisinopril (Lisinopril 5 Mg Tablet) 5 mg PO DAILY [facility]; Protocol Last Admin: 02/02/22 07:34 Dose: 5 mg Documented By: TERRIE Magnesium Oxide (Magnesium Oxide 400 Mg Tablet) 400 mg PO DAILY [facility] Last Admin: 02/02/22 07:34 Dose: 400 mg Documented By: TERRIE Melatonin (Melatonin 3 Mg Tablet) 6 mg PO DAILY@1700 [facility] Last Admin: 02/02/22 17:18 Dose: 6 mg Documented By: TERRIE Omeprazole (Omeprazole 40 Mg Capsule.Dr) 40 mg PO BID@0630,1630 [facility] Last Admin: 02/03/22 03:36 Dose: 40 mg Documented By: OSCAR Ondansetron HCl (Ondansetron Hcl 4 Mg/2 Ml Vial) 4 mg IVPUSH ONCE PRN PRN Reason: Nausea and Vomiting Oxycodone HCl (Oxycodone Hcl Immed Release 5 Mg Tablet) 5 mg PO Q4H PRN PRN Reason: Pain, Moderate (Pain Scale 4-6 Last Admin: 02/03/22 05:54 Dose: 5 mg Documented By: OSCAR Pentoxifylline (Pentoxifylline Er 400 Mg Tablet.Er) 400 mg PO BID [facility] Last Admin: 02/02/22 21:43 Dose: 400 mg Documented By: JAMIE Pharmacy Consult (Consult Rx Perform Med Rec) 1 each MISCELLANE ONCE PRN PRN Reason: Consult order Sodium Chloride (0.9 % Sodium Chloride Flush 3 Ml Syringe) 3 ml IVFLUSH QSHIFT [facility] Last Admin: 02/03/22 07:32 Dose: Not Given Documented By: JOHAN Non-Admin Reason: IV Running <Hue Hunt PA-C - Last Filed: 02/03/22 09:01> Labs CBC & Chem 7: : 02/03/22 09:12 02/02/22 05:42 <Hue Hunt PA-C - Last Filed: 02/03/22 09:01> Labs: Laboratory Results - last 24 hr 02/02/22 02/02/22 02/02/22 11:21 16:13 20:18 POC Glucose 170 H 160 H 174 H 02/03/22 07:23 POC Glucose 161 H <Hue Hunt PA-C - Last Filed: 02/03/22 09:01> Procedures Date of Service Date of Service: 02/03/22 <Hue Hunt PA-C - Last Filed: 02/03/22 09:01> Progress Note: A&P Assessment and plan (1) S/P cholecystectomy: Status: Acute <Hue Hunt PA-C - Last Filed: 02/03/22 09:01> (2) COPD (chronic obstructive pulmonary disease): Status: Acute <Hue Hunt PA-C - Last Filed: 02/03/22 09:01> (3) CHF (congestive heart failure): Status: Acute <Hue Hunt PA-C - Last Filed: 02/03/22 09:01> Assessment and Plan: 66-year-old male patient with history of chronic abdominal pain in the right upper quadrant, POD #2 status post laparoscopic cholecystectomy. Operative findings included cirrhotic changes to liver. Patient continues to have sanguineous drainage from JOEY. Repeat labs this m orning. Continue low-fat diet as tolerated. Patient requires continued hospitalization due to JOEY output. Will continue to monitor. Hospitalists following for medical comorbidities, appreciate input. <Hue Hunt PA-C - Last Filed: 02/03/22 09:01> 66-year-old male patient with history of chronic abdominal pain in the right upper quadrant, POD #2 status post laparoscopic cholecystectomy. Operative findings included cirrhotic changes to liver. Patient continues to have sanguineous drainage from JOEY. Repeat labs this mo rning. Continue low-fat diet as tolerated. Patient requires continued hospitalization due to JOEY output. Will continue to monitor. Hospitalists following for medical comorbidities, appreciate input. Patient seen and examined. He continues to have abdominal pain right upper quadrant but is tolerating diet. Agree with the above assessment and plan. Will keep patient and recheck labs. <Frankie Ricks MD - Last Filed: 02/03/22 12:29> Time Spent With Patient Time: Total time managing care of this patient today 30 minutes. <Hue Hunt PA-C - Last Filed: 02/03/22 09:01> Quality Stroke Does the patient have a stroke diagnosis?: No <Hue Hunt PA-C - Last Filed: 02/03/22 09:01> VTE Prior VTE?: No <Hue Hunt PA-C - Last Filed: 02/03/22 09:01> VTE Risk Level:: Surgical - high <Hue Hunt PA-C - Last Filed: 02/03/22 09:01> VTE Device Contraindication: N/A - Device Ordered <Hue Hunt PA-C - Last Filed: 02/03/22 09:01> VTE Drug Contraindication: Treatment Not Tolerated <Hue Hunt PA-C - Last Filed: 02/03/22 09:01>
[2022-02-03] MEDS: Escitalopram Oxalate 10 MG TABLET PO (09:07)
[2022-02-03] MEDS: hydrOXYzine HCL 25 MG TABLET PO (09:09)
[2022-02-03] MEDS: carvediloL 12.5 MG TABLET PO (09:09)
[2022-02-03] MEDS: Escitalopram Oxalate 5 MG TABLET PO (09:10)
[2022-02-03] MEDS: Magnesium Oxide 400 MG TABLET PO (09:10)
[2022-02-03] MEDS: Pentoxifylline ER 400 MG TABLET.ER PO ×2 (09:10→20:12)
[2022-02-03] MEDS: Acetaminophen 325 MG TABLET 975 MG PO ×2 (09:10→13:47)
[2022-02-03] MEDS: lisinopriL 5 MG TABLET PO (09:10)
[2022-02-03 09:17] LABS: MANUAL DIFF FLAG NO
[2022-02-03 09:26] LABS: Basophils Percent Auto 0.7 % (0-2); Eosinophils Absolute Auto 0.3 X10*3/uL (0.0-0.4); Eosinophils Percent Auto 5.5 % (0-4); Hematocrit 29.9 % (42.0-52.0); Hemoglobin 9.7 g/dl (14.0-18.0); Imm Gran Abs Auto 0.07 X10*3/uL (0.00-0.03); Imm Gran Pct Auto 1.2 % (0.0-0.4); Lymphocytes Absolute Auto 0.7 X10*3/uL (1.2-4.9); Lymphocytes Percent Auto 12.7 % (20-40); Mean Corpuscular HGB Conc 32.4 g/dl (31.0-36.0); Mean Corpuscular Hemoglobin 29.7 pg (27.0-33.0); Mean Corpuscular Volume 91.4 fL (80.0-98.0); Mean Platelet Volume 12.4 fL (9.4-12.4); Monocytes Absolute Auto 0.5 X10*3/uL (0.1-1.2); Monocytes Percent Auto 9.1 % (2-11); Neutrophils Percent Auto 70.8 % (45-73); Red Blood Count 3.27 X10*6/uL (4.60-5.80); Red Cell Distribution Width 15.6 % (11.0-16.0); White Blood Count 5.6 X10*3/uL (4.8-10.8)
[2022-02-03 09:27] LABS: Platelet Count 47 X10*3/uL (160-400)
[2022-02-03 09:28] LABS: INTERNATIONAL NORM RATIO 1.3 (0.9-1.1); Prothrombin Time 15.6 SEC (10.0-13.1)
--- NOTE | 2022-02-03 09:54 | HO.PM.IMPN ---
Subjective Subjective Date of Service: 02/03/22 Physical Exam Vital Signs: Vital Signs: Last Vital Signs Temp 98.4 F 02/03/22 08:00 Pulse 70 02/03/22 08:00 Resp 17 02/03/22 08:00 BP 138/65 02/03/22 08:00 Pulse Ox 96 02/03/22 08:00 O2 Del Method 02/03/22 08:00 O2 Flow Rate 2 02/01/22 14:08 BMI result Body Mass Index 28.0 Objective Data Active Medications Acetaminophen (Acetaminophen 325 Mg Tablet) 975 mg PO TID@0800,1300,1700 [facility] Last Admin: 02/03/22 09:10 Dose: 975 mg Documented By: JOHAN Albuterol Sulfate (Albuterol Sulfate 90 Mcg 8 Gm Inhaler) 2 puff INHALE RQ4H PRN PRN Reason: Wheezing/congestion Atorvastatin Calcium (Atorvastatin Calcium 10 Mg Tablet) 10 mg PO DAILY@1700 [facility] Last Admin: 02/02/22 17:18 Dose: 10 mg Documented By: TERRIE Calcium Carbonate (Calcium Carbonate 500 Mg Tablet) 250 mg PO TID@0800,1200,1700 [facility] Last Admin: 02/02/22 17:18 Dose: 250 mg Documented By: TERRIE Carvedilol (Carvedilol 12.5 Mg Tablet) 12.5 mg PO BID@0800,1700 [facility]; Protocol Last Admin: 02/03/22 09:09 Dose: 12.5 mg Documented By: JOHAN Dextrose (Dextrose 50 % 25 Gm/50 Ml Syringe) 25 gm IVPUSH Q15M PRN; Protocol PRN Reason: per Hypoglycemia Standing Ord. Erythromycin (Erythromycin Base 0.5% Oph Oin 1 Gm Tube) 1 cm EYE-LEFT MOTH@0900 [facility] Last Admin: 02/02/22 07:35 Dose: 1 cm Documented By: TERRIE Escitalopram Oxalate (Escitalopram Oxalate 5 Mg Tablet) 5 mg PO DAILY [facility] Last Admin: 02/03/22 09:10 Dose: 5 mg Documented By: JOHAN Escitalopram Oxalate (Escitalopram Oxalate 10 Mg Tablet) 10 mg PO DAILY [facility] Last Admin: 02/03/22 09:07 Dose: 10 mg Documented By: JOHAN Fentanyl (Fentanyl Citrate/Pf 100 Mcg/2 Ml Vial) 25 mcg IVPUSH Q5M PRN; Protocol PRN Reason: Pain, Moderate (Pain Scale 4-6 Last Admin: 02/01/22 13:03 Dose: 25 mcg Documented By: KEVIN Ferrous Sulfate (Ferrous Sulfate 324 Mg Tablet.Dr) 324 mg PO DAILY@1700 [facility] Last Admin: 02/02/22 17:18 Dose: 324 mg Documented By: TERRIE Furosemide (Furosemide 20 Mg Tablet) 20 mg PO DAILY [facility]; Protocol Last Admin: 02/03/22 07:37 Dose: Not Given Documented By: JOHAN Non-Admin Reason: Patient Refused Glucose (Glucose Gel 15 Gm Gel..Gram.) 15 gm PO Q15M PRN; Protocol PRN Reason: per Hypoglycemia Standing Ord. Hydromorphone HCl (Hydromorphone Hcl 1 Mg/Ml Syringe) 0.5 mg IVPUSH Q4H PRN; Protocol PRN Reason: Pain, Severe (Pain Scale 7-10) Last Admin: 02/02/22 14:49 Dose: 0.5 mg Documented By: TERRIE Hydroxyzine HCl (Hydroxyzine Hcl 25 Mg Tablet) 25 mg PO DAILY [facility] Last Admin: 02/03/22 09:09 Dose: 25 mg Documented By: JOHAN Insulin Glargine (Insulin Glargine,Hum.Rec.Anlog 100 Unit/Ml 10 Ml Vial) 35 unit SUBCUT BID [facility] Last Admin: 02/03/22 09:02 Dose: Not Given Documented By: JOHAN Non-Admin Reason: Patient Refused Insulin Human Lispro (Insulin Lispro 100 Unit/Ml 3 Ml Vial) 0 unit SUBCUT QIDACHS [facility]; Protocol Last Admin: 02/03/22 07:36 Dose: Not Given Documented By: JOHAN Non-Admin Reason: Patient Refused Latanoprost (Latanoprost 0.005 % Ophth Kathy 2.5 Ml Drops) 1 drop EYE-RIGHT DAILY@1700 [facility] Last Admin: 02/02/22 17:23 Dose: Not Given Documented By: TERRIE Non-Admin Reason: Med Not Available Lisinopril (Lisinopril 5 Mg Tablet) 5 mg PO DAILY [facility]; Protocol Last Admin: 02/03/22 09:10 Dose: 5 mg Documented By: JOHAN Magnesium Oxide (Magnesium Oxide 400 Mg Tablet) 400 mg PO DAILY [facility] Last Admin: 02/03/22 09:10 Dose: 400 mg Documented By: JOHAN Melatonin (Melatonin 3 Mg Tablet) 6 mg PO DAILY@1700 [facility] Last Admin: 02/02/22 17:18 Dose: 6 mg Documented By: TERRIE Omeprazole (Omeprazole 40 Mg Capsule.Dr) 40 mg PO BID@0630,1630 [facility] Last Admin: 02/03/22 03:36 Dose: 40 mg Documented By: OSCAR Ondansetron HCl (Ondansetron Hcl 4 Mg/2 Ml Vial) 4 mg IVPUSH ONCE PRN PRN Reason: Nausea and Vomiting Oxycodone HCl (Oxycodone Hcl Immed Release 5 Mg Tablet) 5 mg PO Q4H PRN PRN Reason: Pain, Moderate (Pain Scale 4-6 Last Admin: 02/03/22 05:54 Dose: 5 mg Documented By: OSCAR Pentoxifylline (Pentoxifylline Er 400 Mg Tablet.Er) 400 mg PO BID [facility] Last Admin: 02/03/22 09:10 Dose: 400 mg Documented By: JOHAN Pharmacy Consult (Consult Rx Perform Med Rec) 1 each MISCELLANE ONCE PRN PRN Reason: Consult order Sodium Chloride (0.9 % Sodium Chloride Flush 3 Ml Syringe) 3 ml IVFLUSH QSHIFT [facility] Last Admin: 02/03/22 07:32 Dose: Not Given Documented By: JOHAN Non-Admin Reason: IV Running Labs CBC & Chem 7: 02/03/22 09:12 02/02/22 05:42 Labs: Laboratory Results - last 24 hr 02/02/22 02/02/22 02/02/22 11:21 16:13 20:18 MCV MCH MCHC RDW Plt Count MPV Immature Gran % (Auto) Neut % (Auto) Lymph % (Auto) [place] % (Auto) Eos % (Auto) Baso % (Auto) Lymph # (Auto) [place] # (Auto) Eos # (Auto) Baso # (Auto) Abs Immat Gran (auto) Absolute Neuts (auto) Absolute Nucleated RBC Nucleated RBC % (auto) PT INR POC Glucose 170 H 160 H 174 H 02/03/22 02/03/22 02/03/22 07:23 09:12 09:12 MCV 91.4 MCH 29.7 MCHC 32.4 RDW 15.6 Plt Count 47 L D MPV 12.4 Immature Gran % (Auto) 1.2 H Neut % (Auto) 70.8 Lymph % (Auto) 12.7 L [place] % (Auto) 9.1 Eos % (Auto) 5.5 H Baso % (Auto) 0.7 Lymph # (Auto) 0.7 L [place] # (Auto) 0.5 Eos # (Auto) 0.3 Baso # (Auto) 0.0 Abs Immat Gran (auto) 0.07 H Absolute Neuts (auto) 4.0 Absolute Nucleated RBC 0.000 Nucleated RBC % (auto) 0.0 PT 15.6 H INR 1.3 H POC Glucose 161 H Assessment and Plan Plan Pt is a 66-year-old male with a PMH significant for paroxysmal AFib, CHF, BPH, COPD, insulin-dependent type 2 diabetes, GERD, hypothyroidism, depression, thrombocytopenia secondary to ITP, blindness of the left eye, gout, and history of upper GI bleed who is in the hospital s/p ruben garcia. A resident [facility] Hospitalist consult for medical management of patient. # s/p ruben garcia -- as per general surgery management # insulin-dependent type 2 diabetes -- pt has been refusing insulin because not eating much; latest POC glucose 161, under control -- hold home meds -- ssi, lantus # COPD, not in acute exacerbation -- albuterol left off home med list -- albuterol inhaler prn # anemia -- pt's H&H continues downtrending, now -- monitor #HTN - continue home meds # paroxysmal atrial fibrillation- no RVR - continue home meds -Not on anticoagulation- hx GI bleeding #CHF without acute exacerbation unspecified type- euvolemic -Continue furosemide # hypothyroidism -continue levothyroxine # HLD -continue statin # hypocalcemia -- chronic, at baseline -- continue home meds # depression -continue citalopram # chronic normocytic anemia-stable -continue ferrous sulfate #thrombocytopenia secondary to ITP -stable, at baseline # PAD -continue pentoxifylline #Gerd - home meds Time Spent With Patient Time: Total time managing care of this patient today ____ minutes. Quality Stroke Does the patient have a stroke diagnosis?: No VTE Prior VTE?: No VTE Risk Level:: Surgical - high VTE Device Contraindication: N/A - Device Ordered VTE Drug Contraindication: Treatment Not Tolerated
[2022-02-03 10:00] VITALS: O2SAT 97
--- NOTE | 2022-02-03 10:03 | HO.PM.IMCN ---
History of Present Illness Data of Consult Service Date: 02/03/22 Primary Care Provider: Simona Fregoso MD HPI Reason for consult: Medical management of diabetes, COPD Pt is a 66-year-old male with a PMH significant for paroxysmal AFib, CHF, BPH, COPD, insulin-dependent type 2 diabetes, GERD, hypothyroidism, depression, thrombocytopenia secondary to ITP, blindness of the left eye, gout, and history of upper GI bleed who is in the hospital s/p ruben garcia. A resident of [facility].? Hospitalist consult for medical management of patient.? Patient seen and evaluated at bedside, seen sitting at side of bed eating breakfast. Patient complains of continued mild, constant right-sided upper abdominal pain at incision sites. His incision site continues to drain, more than yesterday. Some blood has soaked through his dressing and onto his gown. NEHA with increased discharge overnight. Patient experienced some nausea last night with a little bit of vomiting, believes it is due to congestion from sleeping more prone than he is used to (normally sleeps in a recliner). Denies F/C. No chest pain/pressure, palpitations, SOB. Pt has been refusing his insulin d/t less po intake; POC have routinely been <200, adequately controlled. Review of Systems Review of Systems: Mild, constant right upper quadrant abdominal pain located at the surgical incision sites Nausea with some vomiting Congestion No chest pain/pressure Denies F/C No SOB Yes all other systems are reviewed and are negative [facility] Medical History Atrial fibrillation Blindness of left eye BPH (benign prostatic hyperplasia) CHF (congestive heart failure) COPD (chronic obstructive pulmonary disease) Diabetes Diverticulosis Gallbladder sludge GERD (gastroesophageal reflux disease) History of COVID-19 Hypothyroid Major depression Osteoarthritis [facility]ides in pen[facility] facility 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 Strain of left knee Thrombocytopenia Family History Maternal Grandmother Diabetes Mother Diabetes Surgical History Hx of eye surgery Social History Household Members: None Housing: [facility] Housing Other:: [facility] Do you presently have visiting nurse or other home services: No Alcohol intake: current Alcohol intake frequency: holidays/special occasions only Alcohol type: beer Patient Tobacco Use Status: Former Tobacco user Quit Date: 10 yrs ago Tobacco use type: Cigarette Use of substances other than those prescribed or required for medical reasons: No Currently Displaying Signs/Symptoms of Drug Intoxication Withdrawal: No Are you DNR?: Yes Advance Directives: Yes Advance Directives on File: Yes Advance Directives Date on File: 02/20/20 service: No Current occupational status: retired Meds Allergies Allergy/AdvReac Type Severity Reaction Status Date / Time colchicine Allergy Unknown diarrhea Verified 02/01/22 07:44 Active Medications: Current Medications Acetaminophen (Acetaminophen 325 Mg Tablet) 975 mg PO TID@0800,1300,1700 [facility] Last Admin: 02/03/22 09:10 Dose: 975 mg Albuterol Sulfate (Albuterol Sulfate 90 Mcg 8 Gm Inhaler) 2 puff INHALE RQ4H PRN PRN Reason: Wheezing/congestion Atorvastatin Calcium (Atorvastatin Calcium 10 Mg Tablet) 10 mg PO DAILY@1700 [facility] Last Admin: 02/02/22 17:18 Dose: 10 mg Calcium Carbonate (Calcium Carbonate 500 Mg Tablet) 250 mg PO TID@0800,1200,1700 [facility] Last Admin: 02/03/22 10:02 Dose: Not Given Carvedilol (Carvedilol 12.5 Mg Tablet) 12.5 mg PO BID@0800,1700 [facility]; Protocol Last Admin: 02/03/22 09:09 Dose: 12.5 mg Dextrose (Dextrose 50 % 25 Gm/50 Ml Syringe) 25 gm IVPUSH Q15M PRN; Protocol PRN Reason: per Hypoglycemia Standing Ord. Erythromycin (Erythromycin Base 0.5% Oph Oin 1 Gm Tube) 1 cm EYE-LEFT MOTH@0900 [facility] Last Admin: 02/02/22 07:35 Dose: 1 cm Escitalopram Oxalate (Escitalopram Oxalate 5 Mg Tablet) 5 mg PO DAILY [facility] Last Admin: 02/03/22 09:10 Dose: 5 mg Escitalopram Oxalate (Escitalopram Oxalate 10 Mg Tablet) 10 mg PO DAILY [facility] Last Admin: 02/03/22 09:07 Dose: 10 mg Fentanyl (Fentanyl Citrate/Pf 100 Mcg/2 Ml Vial) 25 mcg IVPUSH Q5M PRN; Protocol PRN Reason: Pain, Moderate (Pain Scale 4-6 Last Admin: 02/01/22 13:03 Dose: 25 mcg Ferrous Sulfate (Ferrous Sulfate 324 Mg Tablet.) 324 mg PO DAILY@1700 [facility] Last Admin: 02/02/22 17:18 Dose: 324 mg Furosemide (Furosemide 20 Mg Tablet) 20 mg PO DAILY [facility]; Protocol Last Admin: 02/03/22 07:37 Dose: Not Given Glucose (Glucose Gel 15 Gm Gel..Gram.) 15 gm PO Q15M PRN; Protocol PRN Reason: per Hypoglycemia Standing Ord. Hydromorphone HCl (Hydromorphone Hcl 1 Mg/Ml Syringe) 0.5 mg IVPUSH Q4H PRN; Protocol PRN Reason: Pain, Severe (Pain Scale 7-10) Last Admin: 02/02/22 14:49 Dose: 0.5 mg Hydroxyzine HCl (Hydroxyzine Hcl 25 Mg Tablet) 25 mg PO DAILY [facility] Last Admin: 02/03/22 09:09 Dose: 25 mg Insulin Glargine (Insulin Glargine,Hum.Rec.Anlog 100 Unit/Ml 10 Ml Vial) 35 unit SUBCUT BID [facility] Last Admin: 02/03/22 09:02 Dose: Not Given Insulin Human Lispro (Insulin Lispro 100 Unit/Ml 3 Ml Vial) 0 unit SUBCUT QIDACHS [facility]; Protocol Last Admin: 02/03/22 07:36 Dose: Not Given Latanoprost (Latanoprost 0.005 % Ophth Kathy 2.5 Ml Drops) 1 drop EYE-RIGHT DAILY@1700 [facility] Last Admin: 02/02/22 17:23 Dose: Not Given Lisinopril (Lisinopril 5 Mg Tablet) 5 mg PO DAILY [facility]; Protocol Last Admin: 02/03/22 09:10 Dose: 5 mg Magnesium Oxide (Magnesium Oxide 400 Mg Tablet) 400 mg PO DAILY [facility] Last Admin: 02/03/22 09:10 Dose: 400 mg Melatonin (Melatonin 3 Mg Tablet) 6 mg PO DAILY@1700 [facility] Last Admin: 02/02/22 17:18 Dose: 6 mg Omeprazole (Omeprazole 40 Mg Capsule.) 40 mg PO BID@0630,1630 [facility] Last Admin: 02/03/22 03:36 Dose: 40 mg Ondansetron HCl (Ondansetron Hcl 4 Mg/2 Ml Vial) 4 mg IVPUSH ONCE PRN PRN Reason: Nausea and Vomiting Oxycodone HCl (Oxycodone Hcl Immed Release 5 Mg Tablet) 5 mg PO Q4H PRN PRN Reason: Pain, Moderate (Pain Scale 4-6 Last Admin: 02/03/22 05:54 Dose: 5 mg Pentoxifylline (Pentoxifylline Er 400 Mg Tablet.Er) 400 mg PO BID [facility] Last Admin: 02/03/22 09:10 Dose: 400 mg Pharmacy Consult (Consult Rx Perform Med Rec) 1 each MISCELLANE ONCE PRN PRN Reason: Consult order Sodium Chloride (0.9 % Sodium Chloride Flush 3 Ml Syringe) [facility] Admin: 02/03/22 07:32 Dose: Not Given Home Medications Medication Instructions Recorded Confirmed Last Taken Type atorvastatin 10 mg tablet 1 tab PO DAILY@1700 02/21/20 01/16/22 01/31/22 History carvedilol 12.5 mg tablet 1 tab PO BID@0800,1700 02/21/20 01/16/22 02/01/22 05:00 History citalopram 10 mg tablet 1 tab PO DAILY 02/21/20 01/16/22 02/01/22 05:00 History citalopram 20 mg tablet 1 tab PO DAILY 02/21/20 01/16/22 02/01/22 05:00 History furosemide 20 mg tablet 1 tab PO DAILY 02/21/20 01/16/22 01/31/22 History hydroxyzine HCl 25 mg tablet 25 mg PO DAILY 02/21/20 01/16/22 01/31/22 History latanoprost 0.005 % eye drops 1 drp ophthalmic-Right DAILY@1700 02/21/20 01/16/22 01/31/22 History pentoxifylline 400 mg 1 tab PO BID 02/21/20 01/16/22 01/31/22 History tablet,extended release acetaminophen 500 mg tablet 1,000 mg PO TID@0800,1300,1700 12/07/21 01/16/22 Unknown History calcium carbonate 200 mg calcium 200 mg PO TID@0800,1200,1700 12/07/21 01/16/22 01/31/22 History (500 mg) chewable tablet (Calcium Antacid) cholecalciferol (vitamin D3) 1,250 1,250 mcg PO QMONTH 12/07/21 01/16/22 01/31/22 History mcg (50,000 unit) capsule erythromycin 5 mg/gram (0.5 %) eye 1 appl ophthalmic-Left MOTH@0900 12/07/21 01/16/22 01/31/22 History ointment ferrous sulfate 325 mg (65 mg 325 mg PO DAILY@1700 12/07/21 01/16/22 01/31/22 History iron) tablet insulin aspart U-100 100 unit/mL See Protocol subcut QIDACHS 12/07/21 01/16/22 Unknown History subcutaneous solution (Novolog U-100 Insulin aspart) insulin detemir U-100 100 unit/mL 50 unit subcut BID@0730,2000 12/07/21 02/01/22 01/31/22 History subcutaneous solution (Levemir U-100 Insulin) lisinopril 5 mg tablet 1 tab PO DAILY 12/07/21 01/16/22 01/31/22 History magnesium oxide 400 mg PO DAILY 12/07/21 01/16/22 01/31/22 History melatonin 5 mg tablet 5 mg PO DAILY@1700 12/07/21 01/16/22 01/31/22 History sucralfate 1 gram tablet 1 g PO QID 12/20/21 01/16/22 01/31/22 History gabapentin 100 mg capsule 100 mg PO TID PRN Pain 01/05/22 01/16/22 01/31/22 History naloxone 4 mg/actuation nasal spray 1 spray intranasal Q2M 01/05/22 02/01/22 Unknown History Physical Exam Vital Signs and Narrative: Vital Signs: Last Vital Signs Temp 98.4 F 02/03/22 08:00 Pulse 70 02/03/22 08:00 Resp 17 02/03/22 08:00 BP 138/65 02/03/22 08:00 Pulse Ox 96 02/03/22 08:00 O2 Del Method 02/03/22 08:00 O2 Flow Rate 2 02/01/22 14:08 BMI result Body Mass Index 28.0 General: AOx3, no acute distress Resp: Mild rhonchi bilaterally, especially in lower lobes CVS: S1, S2, RRR GI: tenderness at surgical sites, neha tube in place, blood soaking through dressing, +BS, no distention Skin: No rash Neuro: Motor grossly intact Extremities: no edema Psych: Appropriate affect Results Labs CBC and Chem 7: 02/03/22 09:12 02/02/22 05:42 Labs: Laboratory Results - last 24 hr 02/02/22 02/02/22 02/02/22 11:21 16:13 20:18 MCV MCH MCHC RDW Plt Count MPV Immature Gran % (Auto) Neut % (Auto) Lymph % (Auto) [place] % (Auto) Eos % (Auto) Baso % (Auto) Lymph # (Auto) [place] # (Auto) Eos # (Auto) Baso # (Auto) Abs Immat Gran (auto) Absolute Neuts (auto) Absolute Nucleated RBC Nucleated RBC % (auto) PT INR POC Glucose 170 H 160 H 174 H 02/03/22 02/03/22 02/03/22 07:23 09:12 09:12 MCV 91.4 MCH 29.7 MCHC 32.4 RDW 15.6 Plt Count 47 L D MPV 12.4 Immature Gran % (Auto) 1.2 H Neut % (Auto) 70.8 Lymph % (Auto) 12.7 L [place] % (Auto) 9.1 Eos % (Auto) 5.5 H Baso % (Auto) 0.7 Lymph # (Auto) 0.7 L [place] # (Auto) 0.5 Eos # (Auto) 0.3 Baso # (Auto) 0.0 Abs Immat Gran (auto) 0.07 H Absolute Neuts (auto) 4.0 Absolute Nucleated RBC 0.000 Nucleated RBC % (auto) 0.0 PT 15.6 H INR 1.3 H POC Glucose 161 H Assessment and Plan (1) S/P cholecystectomy: Status: Acute Plan Pt is a 66-year-old male with a PMH significant for paroxysmal AFib, CHF, BPH, COPD, insulin-dependent type 2 diabetes, GERD, hypothyroidism, depression, thrombocytopenia secondary to ITP, blindness of the left eye, gout, and history of upper GI bleed who is in the hospital s/p lap radha. A resident of [facility].? Hospitalist consult for medical management of patient. # s/p lap radha -- as per general surgery management # insulin-dependent type 2 diabetes -- pt has been refusing insulin because d/t not eating much; latest POC glucose 161, adequately controlled -- hold home meds -- ssi, lantus # COPD -- pt on albuterol inhaler prn at home, though not on home med list -- albuterol prn # anemia -- pt's H&H continues to downtrend, now 9.7/29.9 -- continue to monitor #HTN -- continue home meds # paroxysmal atrial fibrillation- no RVR -- continue home meds -- not on anticoagulation- hx GI bleeding #CHF without acute exacerbation unspecified type- euvolemic -- Continue furosemide # hypothyroidism -- continue levothyroxine # HLD -- continue statin # hypocalcemia -- chronic, near baseline -- continue home meds # depression -- continue citalopram # chronic normocytic anemia-stable -- continue ferrous sulfate #thrombocytopenia secondary to ITP -- stable, at baseline # PAD -- continue pentoxifylline #Gerd -- home meds Thank you for allowing us to participate in the care of this patient. We will continue to follow him during his stay. Time Spent With Patient Time: Total time managing care of this patient today ____ minutes.
[2022-02-03 11:38] LABS: Glucose, Whole Blood 156 mg/dL (60-115)
--- NOTE | 2022-02-03 11:47 | MHC.CM.PN ---
Addendum entered by Claudia Cadena 02/03/22 11:48: The patient has received a Hospitalist consult for medical management. Patient is S/P Lap Prema. Original Note: DP return to [facility] via BLS.
[2022-02-03] MEDS: Albuterol/Iprat 2.5/0.5MG 3 ML AMPUL.NEB INHALE ×2 (12:57→16:16)
[2022-02-03 13:00] VITALS: PULSE 75; RESP 16; O2SAT 96
[2022-02-03 15:22] VITALS: BP 125/61; PULSE 64; RESP 17; TEMP 36.9; O2SAT 97
[2022-02-03 15:42] LABS: Glucose, Whole Blood 241 mg/dL (60-115)
[2022-02-03] MEDS: 0.9 % Sodium Chloride Flush 3 ML SYRINGE IVFLUSH ×2 (16:00→20:14)
[2022-02-03 19:43] VITALS: BP 158/67; PULSE 69; RESP 18; TEMP 36.7; O2SAT 94
[2022-02-03 20:02] LABS: Glucose, Whole Blood 149 mg/dL (60-115)
[2022-02-04 03:22] VITALS: BP 139/51; PULSE 76; RESP 16; TEMP 36.4; O2SAT 98
[2022-02-04 06:34] LABS: MANUAL DIFF FLAG NO
[2022-02-04 06:42] LABS: Basophils Percent Auto 0.7 % (0-2); Eosinophils Absolute Auto 0.3 X10*3/uL (0.0-0.4); Eosinophils Percent Auto 4.9 % (0-4); Hematocrit 30.8 % (42.0-52.0); Hemoglobin 10.2 g/dl (14.0-18.0); Imm Gran Abs Auto 0.06 X10*3/uL (0.00-0.03); Lymphocytes Absolute Auto 0.8 X10*3/uL (1.2-4.9); Lymphocytes Percent Auto 14.1 % (20-40); Mean Corpuscular HGB Conc 33.1 g/dl (31.0-36.0); Mean Corpuscular Hemoglobin 30.1 pg (27.0-33.0); Mean Corpuscular Volume 90.9 fL (80.0-98.0); Mean Platelet Volume 13.1 fL (9.4-12.4); Monocytes Absolute Auto 0.5 X10*3/uL (0.1-1.2); Monocytes Percent Auto 8.9 % (2-11); Neutrophils Absolute Auto 4.2 x10*3/uL (2.0-8.3); Neutrophils Percent Auto 70.4 % (45-73); Platelet Count 50 X10*3/uL (160-400); Red Blood Count 3.39 X10*6/uL (4.60-5.80); Red Cell Distribution Width 15.8 % (11.0-16.0)
[2022-02-04] MEDS: Omeprazole 40 MG CAPSULE.DR PO ×2 (06:43→16:27)
[2022-02-04 07:28] VITALS: BP 141/57; PULSE 56; RESP 16; TEMP 36.6; O2SAT 99
[2022-02-04 07:34] LABS: Glucose, Whole Blood 168 mg/dL (60-115)
[2022-02-04] MEDS: hydrOXYzine HCL 25 MG TABLET PO (07:55)
[2022-02-04] MEDS: lisinopriL 5 MG TABLET PO (07:56)
[2022-02-04] MEDS: Acetaminophen 325 MG TABLET 975 MG PO ×3 (07:57→16:26)
[2022-02-04] MEDS: carvediloL 12.5 MG TABLET PO ×2 (07:57→16:28)
[2022-02-04] MEDS: Escitalopram Oxalate 5 MG TABLET PO (07:58)
[2022-02-04] MEDS: Pentoxifylline ER 400 MG TABLET.ER PO (07:58)
[2022-02-04] MEDS: Furosemide 20 MG TABLET PO (07:58)
[2022-02-04] MEDS: Escitalopram Oxalate 10 MG TABLET PO (07:58)
[2022-02-04] MEDS: Magnesium Oxide 400 MG TABLET PO (07:59)
[2022-02-04] MEDS: 0.9 % Sodium Chloride Flush 3 ML SYRINGE IVFLUSH ×2 (08:01→16:29)
--- NOTE | 2022-02-04 10:01 | P.PNGS_ITS ---
Subjective Subjective Date of Service: 02/05/22 Interval history: tolerating diet no new complaints pain well controlled Physical Exam Vital Signs: Vital Signs: Last Vital Signs Temp 97.8 F 02/04/22 07:28 Pulse 56 02/04/22 07:28 Resp 16 02/04/22 07:28 BP 141/57 H 02/04/22 07:28 Pulse Ox 99 02/04/22 07:28 O2 Del Method 02/04/22 07:28 O2 Flow Rate 2 02/01/22 14:08 BMI result Body Mass Index 28.0 Const: General: comfortable and no acute distress Resp: Effort & Inspection: normal respiratory effort Cardio: Rate: regular rate GI: Other: incisions clean, JOEY drain with nright blood, not a lot Palpation (GI): Soft to palpation and not firm Objective Data Active Medications Acetaminophen (Acetaminophen 325 Mg Tablet) 975 mg PO TID@0800,1300,1700 [facility] Last Admin: 02/04/22 07:57 Dose: 975 mg Documented By: FRENANDO Albuterol Sulfate (Albuterol Sulfate 90 Mcg 8 Gm Inhaler) 2 puff INHALE RQ4H PRN PRN Reason: Wheezing/congestion Albuterol/Ipratropium (Albuterol/Iprat 2.5/0.5mg 3 Ml Ampul.Neb) 3 ml INHALE RQ4H WHILE AWAKE [facility] Last Admin: 02/04/22 08:05 Dose: Not Given Documented By: JOSH Non-Admin Reason: Patient Refused Atorvastatin Calcium (Atorvastatin Calcium 10 Mg Tablet) 10 mg PO DAILY@1700 [facility] Last Admin: 02/03/22 16:50 Dose: Not Given Documented By: JOHAN Non-Admin Reason: Nausea Calcium Carbonate (Calcium Carbonate 500 Mg Tablet) 250 mg PO TID@0800,1200,1700 [facility] Last Admin: 02/04/22 07:56 Dose: 250 mg Documented By: FERNANDO Carvedilol (Carvedilol 12.5 Mg Tablet) 12.5 mg PO BID@0800,1700 [facility]; Protocol Last Admin: 02/04/22 07:57 Dose: 12.5 mg Documented By: FERNANDO Dextrose (Dextrose 50 % 25 Gm/50 Ml Syringe) 25 gm IVPUSH Q15M PRN; Protocol PRN Reason: per Hypoglycemia Standing Ord. Erythromycin (Erythromycin Base 0.5% Oph Oin 1 Gm Tube) 1 cm EYE-LEFT MOTH@0900 [facility] Last Admin: 02/02/22 07:35 Dose: 1 cm Documented By: TERRIE Escitalopram Oxalate (Escitalopram Oxalate 5 Mg Tablet) 5 mg PO DAILY [facility] Last Admin: 02/04/22 07:58 Dose: 5 mg Documented By: FERNANDO Escitalopram Oxalate (Escitalopram Oxalate 10 Mg Tablet) 10 mg PO DAILY [facility] Last Admin: 02/04/22 07:58 Dose: 10 mg Documented By: FERNANDO Fentanyl (Fentanyl Citrate/Pf 100 Mcg/2 Ml Vial) 25 mcg IVPUSH Q5M PRN; Protocol PRN Reason: Pain, Moderate (Pain Scale 4-6 Last Admin: 02/01/22 13:03 Dose: 25 mcg Documented By: KEVIN Ferrous Sulfate (Ferrous Sulfate 324 Mg Tablet.) 324 mg PO DAILY@1700 [facility] Last Admin: 02/03/22 16:51 Dose: Not Given Documented By: JOHAN Non-Admin Reason: Nausea Furosemide (Furosemide 20 Mg Tablet) 20 mg PO DAILY [facility]; Protocol Last Admin: 02/04/22 07:58 Dose: 20 mg Documented By: FERNANDO Glucose (Glucose Gel 15 Gm Gel..Gram.) 15 gm PO Q15M PRN; Protocol PRN Reason: per Hypoglycemia Standing Ord. Hydromorphone HCl (Hydromorphone Hcl 1 Mg/Ml Syringe) 0.5 mg IVPUSH Q4H PRN; Protocol PRN Reason: Pain, Severe (Pain Scale 7-10) Last Admin: 02/02/22 14:49 Dose: 0.5 mg Documented By: TERRIE Hydroxyzine HCl (Hydroxyzine Hcl 25 Mg Tablet) 25 mg PO DAILY [facility] Last Admin: 02/04/22 07:55 Dose: 25 mg Documented By: FERNANDO Insulin Glargine (Insulin Glargine,Hum.Rec.Anlog 100 Unit/Ml 10 Ml Vial) 35 unit SUBCUT BID [facility] Last Admin: 02/04/22 08:38 Dose: Not Given Documented By: FERNANDO Non-Admin Reason: Patient Refused Insulin Human Lispro (Insulin Lispro 100 Unit/Ml 3 Ml Vial) 0 unit SUBCUT QIDACHS [facility]; Protocol Last Admin: 02/04/22 07:50 Dose: Not Given Documented By: FERNANDO Non-Admin Reason: Patient Refused Latanoprost (Latanoprost 0.005 % Ophth Kathy 2.5 Ml Drops) 1 drop EYE-RIGHT DAILY@1700 [facility] Last Admin: 02/03/22 16:51 Dose: Not Given Documented By: JOHAN Non-Admin Reason: Med Not Available Lisinopril (Lisinopril 5 Mg Tablet) 5 mg PO DAILY [facility]; Protocol Last Admin: 02/04/22 07:56 Dose: 5 mg Documented By: FERNANDO Magnesium Oxide (Magnesium Oxide 400 Mg Tablet) 400 mg PO DAILY [facility] Last Admin: 02/04/22 07:59 Dose: 400 mg Documented By: FERNANDO Melatonin (Melatonin 3 Mg Tablet) 6 mg PO DAILY@1700 [facility] Last Admin: 02/03/22 16:51 Dose: Not Given Documented By: JOHAN Non-Admin Reason: Nausea Omeprazole (Omeprazole 40 Mg Capsule.Dr) 40 mg PO BID@0630,1630 [facility] Last Admin: 02/04/22 06:43 Dose: 40 mg Documented By: ANSHU Ondansetron HCl (Ondansetron Hcl 4 Mg/2 Ml Vial) 4 mg IVPUSH ONCE PRN PRN Reason: Nausea and Vomiting Oxycodone HCl (Oxycodone Hcl Immed Release 5 Mg Tablet) 5 mg PO Q4H PRN PRN Reason: Pain, Moderate (Pain Scale 4-6 Last Admin: 02/03/22 05:54 Dose: 5 mg Documented By: OSCAR Pentoxifylline (Pentoxifylline Er 400 Mg Tablet.Er) 400 mg PO BID [facility] Last Admin: 02/04/22 07:58 Dose: 400 mg Documented By: FERNANDO Pharmacy Consult (Consult Rx Perform Med Rec) 1 each MISCELLANE ONCE PRN PRN Reason: Consult order Sodium Chloride (0.9 % Sodium Chloride Flush 3 Ml Syringe) 3 ml IVFLUSH QSHIFT [facility] Last Admin: 02/04/22 08:01 Dose: 3 ml Documented By: FERNANDO Labs CBC & Chem 7: 02/05/22 05:54 02/02/22 05:42 Labs: Laboratory Results - last 24 hr 02/03/22 02/03/2222 11:19 15:36 19:56 MCV MCH MCHC RDW Plt Count MPV Immature Gran % (Auto) Neut % (Auto) Lymph % (Auto) [place] % (Auto) Eos % (Auto) Baso % (Auto) Lymph # (Auto) [place] # (Auto) Eos # (Auto) Baso # (Auto) Abs Immat Gran (auto) Absolute Neuts (auto) Absolute Nucleated RBC Nucleated RBC % (auto) POC Glucose 156 H 241 H 149 H 02/04/22 02/04/22 05:50 07:25 MCV 90.9 MCH 30.1 MCHC 33.1 RDW 15.8 Plt Count 50 L MPV 13.1 H Immature Gran % (Auto) 1.0 H Neut % (Auto) 70.4 Lymph % (Auto) 14.1 L [place] % (Auto) 8.9 Eos % (Auto) 4.9 H Baso % (Auto) 0.7 Lymph # (Auto) 0.8 L [place] # (Auto) 0.5 Eos # (Auto) 0.3 Baso # (Auto) 0.0 Abs Immat Gran (auto) 0.06 H Absolute Neuts (auto) 4.2 Absolute Nucleated RBC 0.000 Nucleated RBC % (auto) 0.0 POC Glucose 168 H Procedures Date of Service Date of Service: 02/04/22 Progress Note: A&P Assessment and plan (1) S/P cholecystectomy: Status: Acute Assessment and Plan: overall seems to be doing well platelets low JOEY drain output bright red will see how he does today , repeat plt nestor keep JOEY in for now family updated Time Spent With Patient Time: Total time managing care of this patient today ____ minutes. Quality Stroke Does the patient have a stroke diagnosis?: No VTE Prior VTE?: No VTE Risk Level:: Surgical - high VTE Device Contraindication: N/A - Device Ordered VTE Drug Contraindication: Treatment Not Tolerated
--- NOTE | 2022-02-04 11:07 | HO.PM.IMPN ---
Subjective Subjective Date of Service: 02/04/22 Interval History: Medical management of diabetes, COPD Review of Systems denies any sob or cough has neha drain Physical Exam Vital Signs: Vital Signs: Last Vital Signs Temp 97.8 F 02/04/22 07:28 Pulse 56 02/04/22 07:28 Resp 16 02/04/22 07:28 BP 141/57 H 02/04/22 07:28 Pulse Ox 99 02/04/22 07:28 O2 Del Method 02/04/22 07:28 O2 Flow Rate 2 02/01/22 14:08 BMI result Body Mass Index 28.0 General: AOx3, no acute distress Resp: Mild rhonchi bilaterally, especially in lower lobes CVS: S1, S2, RRR GI: tenderness at surgical sites, neha tube in place( draining 80 ml as per chart review better than yesterday), blood soaking through dressing, +BS, no distention Skin: No rash Neuro: Motor grossly intact Extremities: no edema Psych: Appropriate affect Objective Data Active Medications Acetaminophen (Acetaminophen 325 Mg Tablet) 975 mg PO TID@0800,1300,1700 [facility] Last Admin: 02/04/22 07:57 Dose: 975 mg Documented By: FERNANDO Albuterol Sulfate (Albuterol Sulfate 90 Mcg 8 Gm Inhaler) 2 puff INHALE RQ4H PRN PRN Reason: Wheezing/congestion Albuterol/Ipratropium (Albuterol/Iprat 2.5/0.5mg 3 Ml Ampul.Neb) 3 ml INHALE RQ4H WHILE AWAKE [facility] Last Admin: 02/04/22 08:05 Dose: Not Given Documented By: JOSH Non-Admin Reason: Patient Refused Atorvastatin Calcium (Atorvastatin Calcium 10 Mg Tablet) 10 mg PO DAILY@1700 [facility] Last Admin: 02/03/22 16:50 Dose: Not Given Documented By: JOHAN Non-Admin Reason: Nausea Calcium Carbonate (Calcium Carbonate 500 Mg Tablet) 250 mg PO TID@0800,1200,1700 [facility] Last Admin: 02/04/22 07:56 Dose: 250 mg Documented By: FERNNADO Carvedilol (Carvedilol 12.5 Mg Tablet) 12.5 mg PO BID@0800,1700 [facility]; Protocol Last Admin: 02/04/22 07:57 Dose: 12.5 mg Documented By: FERNANDO Dextrose (Dextrose 50 % 25 Gm/50 Ml Syringe) 25 gm IVPUSH Q15M PRN; Protocol PRN Reason: per Hypoglycemia Standing Ord. Erythromycin (Erythromycin Base 0.5% Oph Oin 1 Gm Tube) 1 cm EYE-LEFT MOTH@0900 [facility] Last Admin: 02/02/22 07:35 Dose: 1 cm Documented By: TERRIE Escitalopram Oxalate (Escitalopram Oxalate 5 Mg Tablet) 5 mg PO DAILY [facility] Last Admin: 02/04/22 07:58 Dose: 5 mg Documented By: FERNANDO Escitalopram Oxalate (Escitalopram Oxalate 10 Mg Tablet) 10 mg PO DAILY [facility] Last Admin: 02/04/22 07:58 Dose: 10 mg Documented By: FERNANDO Fentanyl (Fentanyl Citrate/Pf 100 Mcg/2 Ml Vial) 25 mcg IVPUSH Q5M PRN; Protocol PRN Reason: Pain, Moderate (Pain Scale 4-6 Last Admin: 02/01/22 13:03 Dose: 25 mcg Documented By: KEVIN Ferrous Sulfate (Ferrous Sulfate 324 Mg Tablet.) 324 mg PO DAILY@1700 [facility] Last Admin: 02/03/22 16:51 Dose: Not Given Documented By: JOHAN Non-Admin Reason: Nausea Fluticasone/Vilanterol (Fluticasone/Vilanterol 200/25 Blst.W.Dev) 1 puff INHALE RDAILY [facility] Furosemide (Furosemide 20 Mg Tablet) 20 mg PO DAILY [facility]; Protocol Last Admin: 02/04/22 07:58 Dose: 20 mg Documented By: FERNANDO Glucose (Glucose Gel 15 Gm Gel..Gram.) 15 gm PO Q15M PRN; Protocol PRN Reason: per Hypoglycemia Standing Ord. Hydromorphone HCl (Hydromorphone Hcl 1 Mg/Ml Syringe) 0.5 mg IVPUSH Q4H PRN; Protocol PRN Reason: Pain, Severe (Pain Scale 7-10) Last Admin: 02/02/22 14:49 Dose: 0.5 mg Documented By: TERRIE Hydroxyzine HCl (Hydroxyzine Hcl 25 Mg Tablet) 25 mg PO DAILY [facility] Last Admin: 02/04/22 07:55 Dose: 25 mg Documented By: FERNANDO Insulin Glargine (Insulin Glargine,Hum.Rec.Anlog 100 Unit/Ml 10 Ml Vial) 35 unit SUBCUT BID [facility] Last Admin: 02/04/22 08:38 Dose: Not Given Documented By: FERNANDO Non-Admin Reason: Patient Refused Insulin Human Lispro (Insulin Lispro 100 Unit/Ml 3 Ml Vial) 0 unit SUBCUT QIDACHS [facility]; Protocol Last Admin: 02/04/22 07:50 Dose: Not Given Documented By: FERNANDO Non-Admin Reason: Patient Refused Latanoprost (Latanoprost 0.005 % Ophth Kathy 2.5 Ml Drops) 1 drop EYE-RIGHT DAILY@1700 [facility] Last Admin: 02/03/22 16:51 Dose: Not Given Documented By: JOHAN Non-Admin Reason: Med Not Available Lisinopril (Lisinopril 5 Mg Tablet) 5 mg PO DAILY [facility]; Protocol Last Admin: 02/04/22 07:56 Dose: 5 mg Documented By: FERNANDO Magnesium Oxide (Magnesium Oxide 400 Mg Tablet) 400 mg PO DAILY [facility] Last Admin: 02/04/22 07:59 Dose: 400 mg Documented By: FERNANDO Melatonin (Melatonin 3 Mg Tablet) 6 mg PO DAILY@1700 [facility] Last Admin: 02/03/22 16:51 Dose: Not Given Documented By: JOHAN Non-Admin Reason: Nausea Omeprazole (Omeprazole 40 Mg Capsule.Dr) 40 mg PO BID@0630,1630 [facility] Last Admin: 02/04/22 06:43 Dose: 40 mg Documented By: ANSHU Ondansetron HCl (Ondansetron Hcl 4 Mg/2 Ml Vial) 4 mg IVPUSH ONCE PRN PRN Reason: Nausea and Vomiting Oxycodone HCl (Oxycodone Hcl Immed Release 5 Mg Tablet) 5 mg PO Q4H PRN PRN Reason: Pain, Moderate (Pain Scale 4-6 Last Admin: 02/03/22 05:54 Dose: 5 mg Documented By: OSCAR Pentoxifylline (Pentoxifylline Er 400 Mg Tablet.Er) 400 mg PO BID [facility] Last Admin: 02/04/22 07:58 Dose: 400 mg Documented By: FERNANDO Pharmacy Consult (Consult Rx Perform Med Rec) 1 each MISCELLANE ONCE PRN PRN Reason: Consult order Sodium Chloride (0.9 % Sodium Chloride Flush 3 Ml Syringe) 3 ml IVFLUSH QSHIFT XI Last Admin: 02/04/22 08:01 Dose: 3 ml Documented By: FERNANDO Labs CBC & Chem 7: 02/04/22 05:50 02/02/22 05:42 Labs: Laboratory Results - last 24 hr 02/03/22 02/03/22 02/03/22 11:19 15:36 19:56 MCV MCH MCHC RDW Plt Count MPV Immature Gran % (Auto) Neut % (Auto) Lymph % (Auto) [place] % (Auto) Eos % (Auto) Baso % (Auto) Lymph # (Auto) [place] # (Auto) Eos # (Auto) Baso # (Auto) Abs Immat Gran (auto) Absolute Neuts (auto) Absolute Nucleated RBC Nucleated RBC % (auto) POC Glucose 156 H 241 H 149 H 02/04/22 02/04/22 05:50 07:25 MCV 90.9 MCH 30.1 MCHC 33.1 RDW 15.8 Plt Count 50 L MPV 13.1 H Immature Gran % (Auto) 1.0 H Neut % (Auto) 70.4 Lymph % (Auto) 14.1 L [place] % (Auto) 8.9 Eos % (Auto) 4.9 H Baso % (Auto) 0.7 Lymph # (Auto) 0.8 L [place] # (Auto) 0.5 Eos # (Auto) 0.3 Baso # (Auto) 0.0 Abs Immat Gran (auto) 0.06 H Absolute Neuts (auto) 4.2 Absolute Nucleated RBC 0.000 Nucleated RBC % (auto) 0.0 POC Glucose 168 H Assessment and Plan (1) COPD (chronic obstructive pulmonary disease): Status: Acute Plan 66-year-old male with a PMH significant for paroxysmal AFib, CHF, BPH, COPD, insulin-dependent type 2 diabetes, GERD, hypothyroidism, depression, thrombocytopenia secondary to ITP, blindness of the left eye, gout, and history of upper GI bleed who is in the hospital s/p ruben radha. A resident of [facility].? Hospitalist consult for medical management of patient. # s/p lap radha -- as per general surgery management has neha drain ( drainage improvin) # insulin-dependent type 2 diabetes: controlled hold home meds -- ssi, lantus # COPD: stable -- pt on albuterol inhaler prn at home, though not on home med list,added breo -- albuterol prn # anemia -- pt's H&H around 9.7/29.9 -- continue to monitor #HTN -- continue home meds # paroxysmal atrial fibrillation- no RVR -- continue home meds -- not on anticoagulation- hx GI bleeding #CHF without acute exacerbation unspecified type- euvolemic -- Continue furosemide # hypothyroidism -- continue levothyroxine # HLD -- continue statin # hypocalcemia -- chronic, near baseline -- continue home meds # depression -- continue citalopram # chronic normocytic anemia-stable -- continue ferrous sulfate #thrombocytopenia secondary to ITP -- stable, at baseline # PAD -- continue pentoxifylline inpatient need -as per primary team.we will follow along Time Spent With Patient Time: Total time managing care of this patient today ____ minutes. Quality Stroke Does the patient have a stroke diagnosis?: No VTE Prior VTE?: No VTE Risk Level:: Surgical - high VTE Device Contraindication: N/A - Device Ordered VTE Drug Contraindication: Treatment Not Tolerated
[2022-02-04 11:44] VITALS: BP 135/60; PULSE 66; RESP 16; TEMP 36.6; O2SAT 100
[2022-02-04 11:44] LABS: Glucose, Whole Blood 164 mg/dL (60-115)
[2022-02-04 16:00] VITALS: BP 129/63; PULSE 68; RESP 16; TEMP 36.9; O2SAT 99
[2022-02-04 16:28] LABS: Glucose, Whole Blood 190 mg/dL (60-115)
[2022-02-04] MEDS: Melatonin 3 MG TABLET 6 MG PO (16:28)
[2022-02-04] MEDS: Ferrous Sulfate 324 MG TABLET.DR PO (16:28)
[2022-02-04] MEDS: Atorvastatin Calcium 10 MG TABLET PO (16:29)
[2022-02-04] MEDS: Latanoprost 0.005 % Ophth Sol 2.5 ML DROPS 1 DROP EYE-RIGHT (17:23)
[2022-02-04 20:00] VITALS: BP 133/60; PULSE 66; RESP 16; TEMP 36.6; O2SAT 96
[2022-02-04 20:41] LABS: Glucose, Whole Blood 166 mg/dL (60-115)
[2022-02-05 03:24] VITALS: BP 139/64; PULSE 63; RESP 16; TEMP 36.2; O2SAT 97
[2022-02-05 06:09] LABS: Hematocrit 31.6 % (42.0-52.0); Hemoglobin 10.3 g/dl (14.0-18.0); Mean Corpuscular HGB Conc 32.6 g/dl (31.0-36.0); Mean Corpuscular Hemoglobin 29.4 pg (27.0-33.0); Mean Corpuscular Volume 90.3 fL (80.0-98.0); Mean Platelet Volume 12.9 fL (9.4-12.4); Red Cell Distribution Width 15.9 % (11.0-16.0); White Blood Count 5.5 X10*3/uL (4.8-10.8)
[2022-02-05 06:10] LABS: Platelet Count 44 X10*3/uL (160-400)
[2022-02-05 07:52] VITALS: BP 150/65; PULSE 51; RESP 16; TEMP 36.1; O2SAT 100
[2022-02-05 08:12] LABS: Glucose, Whole Blood 158 mg/dL (60-115)
[2022-02-05] MEDS: Omeprazole 40 MG CAPSULE.DR PO ×2 (08:24→16:23)
[2022-02-05] MEDS: Furosemide 20 MG TABLET PO (08:25)
[2022-02-05] MEDS: Escitalopram Oxalate 5 MG TABLET PO (08:25)
[2022-02-05] MEDS: Magnesium Oxide 400 MG TABLET PO (08:26)
[2022-02-05] MEDS: carvediloL 12.5 MG TABLET PO ×2 (08:26→16:23)
[2022-02-05] MEDS: Pentoxifylline ER 400 MG TABLET.ER PO (08:26)
[2022-02-05] MEDS: Escitalopram Oxalate 10 MG TABLET PO (08:26)
[2022-02-05] MEDS: Acetaminophen 325 MG TABLET 975 MG PO ×3 (08:26→16:23)
[2022-02-05] MEDS: lisinopriL 5 MG TABLET PO (08:27)
[2022-02-05] MEDS: hydrOXYzine HCL 25 MG TABLET PO (08:27)
--- NOTE | 2022-02-05 09:24 | PM.PNGS ---
Subjective Subjective Date of Service: 02/06/22 Interval history: feels ok JOEY drain output 130 cc/24h - inspector receiving in color tolerating diet Physical Exam Vital Signs: Vital Signs: Last Vital Signs Temp 97.0 F 02/05/22 07:52 Pulse 51 02/05/22 07:52 Resp 16 02/05/22 07:52 BP 150/65 H 02/05/22 07:52 Pulse Ox 100 02/05/22 07:52 O2 Del Method 02/05/22 07:52 O2 Flow Rate 2 02/01/22 14:08 BMI result Body Mass Index 28.0 Const: General: comfortable and no acute distress Eyes: Sclerae: sclerae normal Resp: Effort & Inspection: normal respiratory effort Cardio: Rate: regular rate GI: Other: incisions clean, JOEY with scanty output at this time Palpation (GI): Soft to palpation and not firm Objective Data Active Medications Acetaminophen (Acetaminophen 325 Mg Tablet) 975 mg PO TID@0800,1300,1700 [facility] Last Admin: 02/05/22 08:26 Dose: 975 mg Documented By: FERNANDO Albuterol Sulfate (Albuterol Sulfate 90 Mcg 8 Gm Inhaler) 2 puff INHALE RQ4H PRN PRN Reason: Wheezing/congestion Albuterol/Ipratropium (Albuterol/Iprat 2.5/0.5mg 3 Ml Ampul.Neb) 3 ml INHALE RQ4H WHILE AWAKE [facility] Last Admin: 02/05/22 08:02 Dose: Not Given Documented By: JOSH Non-Admin Reason: Patient Refused Atorvastatin Calcium (Atorvastatin Calcium 10 Mg Tablet) 10 mg PO DAILY@1700 [facility] [place] Last Admin: 02/04/22 16:29 Dose: 10 mg Documented By: OMER Calcium Carbonate (Calcium Carbonate 500 Mg Tablet) 250 mg PO TID@0800,1200,1700 [facility] [place] Last Admin: 02/05/22 08:25 Dose: 250 mg Documented By: FERNANDO Carvedilol (Carvedilol 12.5 Mg Tablet) 12.5 mg PO BID@0800,1700 [facility] [place]; Protocol Last Admin: 02/05/22 08:26 Dose: 12.5 mg Documented By: FERNANDO Dextrose (Dextrose 50 % 25 Gm/50 Ml Syringe) 25 gm IVPUSH Q15M PRN; Protocol PRN Reason: per Hypoglycemia Standing Ord. Erythromycin (Erythromycin Base 0.5% Oph Oin 1 Gm Tube) 1 cm EYE-LEFT MOTH@0900 [facility] [place] Last Admin: 02/02/22 07:35 Dose: 1 cm Documented By: TERRIE Escitalopram Oxalate (Escitalopram Oxalate 5 Mg Tablet) 5 mg PO DAILY [facility] [place] Last Admin: 02/05/22 08:25 Dose: 5 mg Documented By: FERNANDO Escitalopram Oxalate (Escitalopram Oxalate 10 Mg Tablet) 10 mg PO DAILY [facility] [place] Last Admin: 02/05/22 08:26 Dose: 10 mg Documented By: FERNANDO Fentanyl (Fentanyl Citrate/Pf 100 Mcg/2 Ml Vial) 25 mcg IVPUSH Q5M PRN; Protocol PRN Reason: Pain, Moderate (Pain Scale 4-6 Last Admin: 02/01/22 13:03 Dose: 25 mcg Documented By: KEVIN Ferrous Sulfate (Ferrous Sulfate 324 Mg Tablet.Dr) 324 mg PO DAILY@1700 [facility] [place] Last Admin: 02/04/22 16:28 Dose: 324 mg Documented By: OMER Fluticasone/Vilanterol (Fluticasone/Vilanterol 200/25 Blst.W.Dev) 1 puff INHALE RDAILY [facility] [place] Last Admin: 02/05/22 08:02 Dose: Not Given Documented By: JOSH Non-Admin Reason: Patient Refused Furosemide (Furosemide 20 Mg Tablet) 20 mg PO DAILY [facility]; Protocol Last Admin: 02/05/22 08:25 Dose: 20 mg Documented By: FERNANDO Glucose (Glucose Gel 15 Gm Gel..Gram.) 15 gm PO Q15M PRN; Protocol PRN Reason: per Hypoglycemia Standing Ord. Hydromorphone HCl (Hydromorphone Hcl 1 Mg/Ml Syringe) 0.5 mg IVPUSH Q4H PRN; Protocol PRN Reason: Pain, Severe (Pain Scale 7-10) Last Admin: 02/02/22 14:49 Dose: 0.5 mg Documented By: TERRIE Hydroxyzine HCl (Hydroxyzine Hcl 25 Mg Tablet) 25 mg PO DAILY [facility] [place] Last Admin: 02/05/22 08:27 Dose: 25 mg Documented By: FERNADNO Insulin Glargine (Insulin Glargine,Hum.Rec.Anlog 100 Unit/Ml 10 Ml Vial) 35 unit SUBCUT BID [facility] [place] Last Admin: 02/04/22 21:05 Dose: Not Given Documented By: MARIJ Non-Admin Reason: Patient Refused Insulin Human Lispro (Insulin Lispro 100 Unit/Ml 3 Ml Vial) 0 unit SUBCUT QIDACHS [facility] [place]; Protocol Last Admin: 02/05/22 08:17 Dose: Not Given Documented By: FERNANDO Non-Admin Reason: Patient Refused Latanoprost (Latanoprost 0.005 % Ophth Kathy 2.5 Ml Drops) 1 drop EYE-RIGHT DAILY@1700 [facility] [place] Last Admin: 02/04/22 17:23 Dose: 1 drop Documented By: OMER Lisinopril (Lisinopril 5 Mg Tablet) 5 mg PO DAILY [facility] [place]; Protocol Last Admin: 02/05/22 08:27 Dose: 5 mg Documented By: FERNANDO Magnesium Oxide (Magnesium Oxide 400 Mg Tablet) 400 mg PO DAILY [facility] [place] Last Admin: 02/05/22 08:26 Dose: 400 mg Documented By: FERNANDO Melatonin (Melatonin 3 Mg Tablet) 6 mg PO DAILY@1700 [facility] [place] Last Admin: 02/04/22 16:28 Dose: 6 mg Documented By: OMER Omeprazole (Omeprazole 40 Mg Capsule.Dr) 40 mg PO BID@0630,1630 [facility] [place] Last Admin: 02/05/22 08:24 Dose: 40 mg Documented By: FERNANDO Ondansetron HCl (Ondansetron Hcl 4 Mg/2 Ml Vial) 4 mg IVPUSH ONCE PRN PRN Reason: Nausea and Vomiting Oxycodone HCl (Oxycodone Hcl Immed Release 5 Mg Tablet) 5 mg PO Q4H PRN PRN Reason: Pain, Moderate (Pain Scale 4-6 Last Admin: 02/03/22 05:54 Dose: 5 mg Documented By: OSCAR Pentoxifylline (Pentoxifylline Er 400 Mg Tablet.Er) 400 mg PO BID [facility] [place] Last Admin: 02/05/22 08:26 Dose: 400 mg Documented By: FERNANDO Pharmacy Consult (Consult Rx Perform Med Rec) 1 each MISCELLANE ONCE PRN PRN Reason: Consult order Sodium Chloride (0.9 % Sodium Chloride Flush 3 Ml Syringe) 3 ml IVFLUSH QSHIFT [facility] [place] Last Admin: 02/04/22 21:06 Dose: Not Given Documented By: RAQUEL Non-Admin Reason: Patient Refused Labs CBC & Chem 7: 02/05/22 05:54 02/02/22 05:42 Labs: Laboratory Results - last 24 hr 02/04/22 02/04/22 02/04/22 11:38 15:52 20:06 MCV MCH MCHC RDW Plt Count MPV Absolute Nucleated RBC Nucleated RBC % (auto) POC Glucose 164 H 190 H 166 H 02/05/22 02/05/22 05:54 07:57 MCV 90.3 MCH 29.4 MCHC 32.6 RDW 15.9 Plt Count 44 L MPV 12.9 H Absolute Nucleated RBC 0.000 Nucleated RBC % (auto) 0.0 POC Glucose 158 H Procedures Date of Service Date of Service: 02/05/22 Progress Note: A&P Assessment and plan (1) S/P cholecystectomy: Status: Acute Assessment and Plan: doing well overall JOEY output significant but much inspector receiving in color platelet hovering around 40-50 Hg stable he says is woun't be able to go to [facility] today likely dc tomorrow plan to dc JOEY before discharge dw Hospitalist service Time Spent With Patient Time: Total time managing care of this patient today ____ minutes. Quality Stroke Does the patient have a stroke diagnosis?: No VTE Prior VTE?: No VTE Risk Level:: Surgical - high VTE Device Contraindication: N/A - Device Ordered VTE Drug Contraindication: Treatment Not Tolerated
[2022-02-05] MEDS: 0.9 % Sodium Chloride Flush 3 ML SYRINGE IVFLUSH (10:48)
[2022-02-05 12:07] LABS: Glucose, Whole Blood 179 mg/dL (60-115)
--- NOTE | 2022-02-05 12:24 | P.PNIM_ITS ---
Subjective Subjective Date of Service: 02/05/22 Interval History: Medical management of diabetes, COPD Review of Systems denies any sob or cough has neha drain Physical Exam Vital Signs: Vital Signs: Last Vital Signs Temp 97.0 F 02/05/22 07:52 Pulse 51 02/05/22 07:52 Resp 16 02/05/22 07:52 BP 150/65 H 02/05/22 07:52 Pulse Ox 100 02/05/22 07:52 O2 Del Method 02/05/22 07:52 O2 Flow Rate 2 02/01/22 14:08 BMI result Body Mass Index 28.0 ? General: AOx3, no acute distress Resp: Mild rhonchi bilaterally, especially in lower lobes CVS: S1, S2, RRR GI: tenderness at surgical sites, neha tube in place( draining 80 ml as per chart review better than yesterday), blood soaking through dressing, +BS, no distention Skin: No rash Neuro: Motor grossly intact Extremities: no edema Psych: Appropriate affect Objective Data Active Medications Acetaminophen (Acetaminophen 325 Mg Tablet) 975 mg PO TID@0800,1300,1700 [facility] Last Admin: 02/05/22 08:26 Dose: 975 mg Documented By: FERNANDO Albuterol Sulfate (Albuterol Sulfate 90 Mcg 8 Gm Inhaler) 2 puff INHALE RQ4H PRN PRN Reason: Wheezing/congestion Albuterol/Ipratropium (Albuterol/Iprat 2.5/0.5mg 3 Ml Ampul.Neb) 3 ml INHALE RQ4H WHILE AWAKE [facility] Last Admin: 02/05/22 11:53 Dose: Not Given Documented By: JOSH Non-Admin Reason: Patient Refused Atorvastatin Calcium (Atorvastatin Calcium 10 Mg Tablet) 10 mg PO DAILY@1700 [facility] Last Admin: 02/04/22 16:29 Dose: 10 mg Documented By: OMER Calcium Carbonate (Calcium Carbonate 500 Mg Tablet) 250 mg PO TID@0800,1200,1700 [facility] Last Admin: 02/05/22 08:25 Dose: 250 mg Documented By: FERNANDO Carvedilol (Carvedilol 12.5 Mg Tablet) 12.5 mg PO BID@0800,1700 [facility]; Protocol Last Admin: 02/05/22 08:26 Dose: 12.5 mg Documented By: FERNANDO Dextrose (Dextrose 50 % 25 Gm/50 Ml Syringe) 25 gm IVPUSH Q15M PRN; Protocol PRN Reason: per Hypoglycemia Standing Ord. Erythromycin (Erythromycin Base 0.5% Oph Oin 1 Gm Tube) 1 cm EYE-LEFT MOTH@0900 [facility] Last Admin: 02/02/22 07:35 Dose: 1 cm Documented By: TERRIE Escitalopram Oxalate (Escitalopram Oxalate 5 Mg Tablet) 5 mg PO DAILY [facility] Last Admin: 02/05/22 08:25 Dose: 5 mg Documented By: FERNANDO Escitalopram Oxalate (Escitalopram Oxalate 10 Mg Tablet) 10 mg PO DAILY [facility] Last Admin: 02/05/22 08:26 Dose: 10 mg Documented By: FERNANDO Fentanyl (Fentanyl Citrate/Pf 100 Mcg/2 Ml Vial) 25 mcg IVPUSH Q5M PRN; Protocol PRN Reason: Pain, Moderate (Pain Scale 4-6 Last Admin: 02/01/22 13:03 Dose: 25 mcg Documented By: KEVIN Ferrous Sulfate (Ferrous Sulfate 324 Mg Tablet.Dr) 324 mg PO DAILY@1700 [facility] Last Admin: 02/04/22 16:28 Dose: 324 mg Documented By: OMER Fluticasone/Vilanterol (Fluticasone/Vilanterol 200/25 Blst.W.Dev) 1 puff INHALE RDAILY [facility] Last Admin: 02/05/22 08:02 Dose: Not Given Documented By: JOSH Non-Admin Reason: Patient Refused Furosemide (Furosemide 20 Mg Tablet) 20 mg PO DAILY [facility]; Protocol Last Admin: 02/05/22 08:25 Dose: 20 mg Documented By: FERNANDO Glucose (Glucose Gel 15 Gm Gel..Gram.) 15 gm PO Q15M PRN; Protocol PRN Reason: per Hypoglycemia Standing Ord. Hydromorphone HCl (Hydromorphone Hcl 1 Mg/Ml Syringe) 0.5 mg IVPUSH Q4H PRN; Protocol PRN Reason: Pain, Severe (Pain Scale 7-10) Last Admin: 02/02/22 14:49 Dose: 0.5 mg Documented By: TERRIE Hydroxyzine HCl (Hydroxyzine Hcl 25 Mg Tablet) 25 mg PO DAILY [facility] Last Admin: 02/05/22 08:27 Dose: 25 mg Documented By: FERNANDO Insulin Glargine (Insulin Glargine,Hum.Rec.Anlog 100 Unit/Ml 10 Ml Vial) 35 unit SUBCUT BID [facility] Last Admin: 02/05/22 10:19 Dose: Not Given Documented By: FERNANDO Non-Admin Reason: Patient Refused Insulin Human Lispro (Insulin Lispro 100 Unit/Ml 3 Ml Vial) 0 unit SUBCUT QIDACHS [facility]; Protocol Last Admin: 02/05/22 11:33 Dose: Not Given Documented By: FERNANDO Non-Admin Reason: Patient Refused Latanoprost (Latanoprost 0.005 % Ophth Kathy 2.5 Ml Drops) 1 drop EYE-RIGHT DAILY@1700 [facility] Last Admin: 02/04/22 17:23 Dose: 1 drop Documented By: OMER Lisinopril (Lisinopril 5 Mg Tablet) 5 mg PO DAILY [facility]; Protocol Last Admin: 02/05/22 08:27 Dose: 5 mg Documented By: FERNANDO Magnesium Oxide (Magnesium Oxide 400 Mg Tablet) 400 mg PO DAILY [facility] Last Admin: 02/05/22 08:26 Dose: 400 mg Documented By: FERNANDO Melatonin (Melatonin 3 Mg Tablet) 6 mg PO DAILY@1700 [facility] Last Admin: 02/04/22 16:28 Dose: 6 mg Documented By: OMER Omeprazole (Omeprazole 40 Mg Capsule.Dr) 40 mg PO BID@0630,1630 [facility] Last Admin: 02/05/22 08:24 Dose: 40 mg Documented By: FERNANDO Ondansetron HCl (Ondansetron Hcl 4 Mg/2 Ml Vial) 4 mg IVPUSH ONCE PRN PRN Reason: Nausea and Vomiting Oxycodone HCl (Oxycodone Hcl Immed Release 5 Mg Tablet) 5 mg PO Q4H PRN PRN Reason: Pain, Moderate (Pain Scale 4-6 Last Admin: 02/03/22 05:54 Dose: 5 mg Documented By: OSCAR Pentoxifylline (Pentoxifylline Er 400 Mg Tablet.Er) 400 mg PO BID [facility] Last Admin: 02/05/22 08:26 Dose: 400 mg Documented By: FERNANDO Pharmacy Consult (Consult Rx Perform Med Rec) 1 each MISCELLANE ONCE PRN PRN Reason: Consult order Sodium Chloride (0.9 % Sodium Chloride Flush 3 Ml Syringe) 3 ml IVFLUSH QSHIFT XI Last Admin: 02/05/22 10:48 Dose: 3 ml Documented By: FERNANDO Comments: scanner not working Labs CBC & Chem 7: 02/05/22 05:54 02/02/22 05:42 Labs: Laboratory Results - last 24 hr 02/04/22 02/04/22 02/05/22 15:52 20:06 05:54 MCV 90.3 MCH 29.4 MCHC 32.6 RDW 15.9 Plt Count 44 L MPV 12.9 H Absolute Nucleated RBC 0.000 Nucleated RBC % (auto) 0.0 POC Glucose 190 H 166 H 02/05/22 02/05/22 07:57 11:15 MCV MCH MCHC RDW Plt Count MPV Absolute Nucleated RBC Nucleated RBC % (auto) POC Glucose 158 H 179 H Assessment and Plan (1) COPD (chronic obstructive pulmonary disease): Status: Acute Plan 66-year-old male with a PMH significant for paroxysmal AFib, CHF, BPH, COPD, insulin-dependent type 2 diabetes, GERD, hypothyroidism, depression, thrombocytopenia secondary to ITP, blindness of the left eye, gout, and history of upper GI bleed who is in the hospital s/p ruben garcia. A resident of [facility].? Hospitalist consult for medical management of patient. # s/p ruben garcia -- as per general surgery management has neha drain ( drainage improvin-as per chart review has around 130ml) # insulin-dependent type 2 diabetes: controlled hold home meds -- ssi, lantus # COPD: stable -- pt on albuterol inhaler prn at home, though not on home med list,added breo -- albuterol prn # anemia -- pt's H&H around 9.7/29.9 -- continue to monitor #HTN -- continue home meds # paroxysmal atrial fibrillation- no RVR -- continue home meds -- not on anticoagulation- hx GI bleeding #CHF without acute exacerbation unspecified type- euvolemic -- Continue furosemide # hypothyroidism -- continue levothyroxine # HLD -- continue statin # hypocalcemia -- chronic, near baseline -- continue home meds # depression -- continue citalopram # chronic normocytic anemia-stable -- continue ferrous sulfate #thrombocytopenia secondary to ITP -- stable, at baseline platelets flactuates between 40-60 range no overt bleedin or change in h/h ,continue to moniter # PAD -- continue pentoxifylline inpatient need -as per primary team.we will follow along Time Spent With Patient Time: Total time managing care of this patient today ____ minutes. Quality Stroke Does the patient have a stroke diagnosis?: No VTE Prior VTE?: No VTE Risk Level:: Surgical - high VTE Device Contraindication: N/A - Device Ordered VTE Drug Contraindication: Treatment Not Tolerated
[2022-02-05 15:41] VITALS: BP 145/65; PULSE 60; RESP 18; TEMP 37.1; O2SAT 98
[2022-02-05 15:52] LABS: Glucose, Whole Blood 209 mg/dL (60-115)
[2022-02-05] MEDS: Atorvastatin Calcium 10 MG TABLET PO (16:23)
[2022-02-05] MEDS: Melatonin 3 MG TABLET 6 MG PO (16:23)
[2022-02-05] MEDS: Ferrous Sulfate 324 MG TABLET.DR PO (16:24)
[2022-02-05] MEDS: Latanoprost 0.005 % Ophth Sol 2.5 ML DROPS 1 DROP EYE-RIGHT (16:24)
[2022-02-05 20:00] VITALS: BP 144/80; PULSE 62; RESP 18; TEMP 37.1; O2SAT 95
[2022-02-05 20:19] LABS: Glucose, Whole Blood 190 mg/dL (60-115)
[2022-02-06 04:00] VITALS: BP 158/72; PULSE 59; RESP 18; TEMP 36.7; O2SAT 96
[2022-02-06] MEDS: Omeprazole 40 MG CAPSULE.DR PO (05:43)
[2022-02-06 07:26] VITALS: BP 144/92; PULSE 55; RESP 16; TEMP 36.2; O2SAT 97
[2022-02-06 08:53] LABS: Glucose, Whole Blood 215 mg/dL (60-115)
--- NOTE | 2022-02-06 09:01 | MHC.CM.PN ---
Addendum entered by Consuelo Bowers 02/06/22 10:05: [facility] HAS RESPONDED AND PT WILL TRANSPORT VIA [facility] AT 1130 HOURS CM CALLED PTS BROTHER/HCP FATHER PAULO PARENT [phone] AND INFORMED HIM OF INTENT TO DC /TI Original Note: CM INFORMED PT READY TO DC UPDATES SENT TO [facility] VIA [facility] TRANSPORT TIME WILL BE DETERMINED ONCE SNF HAS REVIEWED
[2022-02-06] MEDS: Pentoxifylline ER 400 MG TABLET.ER PO (09:05)
[2022-02-06] MEDS: Acetaminophen 325 MG TABLET 975 MG PO (09:06)
[2022-02-06] MEDS: hydrOXYzine HCL 25 MG TABLET PO (09:06)
[2022-02-06] MEDS: lisinopriL 5 MG TABLET PO (09:07)
[2022-02-06] MEDS: Escitalopram Oxalate 10 MG TABLET PO (09:08)
[2022-02-06] MEDS: Furosemide 20 MG TABLET PO (09:08)
[2022-02-06] MEDS: Escitalopram Oxalate 5 MG TABLET PO (09:09)
[2022-02-06] MEDS: carvediloL 12.5 MG TABLET PO (09:10)
[2022-02-06] MEDS: Erythromycin Base 0.5% Oph Oin 1 GM TUBE 1 CM EYE-LEFT (09:10)
[2022-02-06] MEDS: Magnesium Oxide 400 MG TABLET PO (09:18)
--- NOTE | 2022-02-06 09:25 | PM.PNGS ---
Subjective Subjective Date of Service: 02/06/22 <Hue Hunt PA-C - Last Filed: 02/06/22 09:32> 02/06/22 <Rafa Cameron MD - Last Filed: 02/06/22 09:31> Interval history: Feels much better today. Tolerating solid diet. Has not had much pain at all. Had small BM over weekend, passing flatus. Thinks he is ready to leave today. <Hue Hunt PA-C - Last Filed: 02/06/22 09:32> Physical Exam Vital Signs: Vital Signs: Last Vital Signs Temp 97.2 F 02/06/22 07:26 Pulse 55 02/06/22 07:26 Resp 16 02/06/22 07:26 BP 144/92 H 02/06/22 07:26 Pulse Ox 97 02/06/22 07:26 O2 Del Method 02/06/22 07:26 O2 Flow Rate 2 02/01/22 14:08 BMI result Body Mass Index 28.0 <Hue Hunt PA-C - Last Filed: 02/06/22 09:32> Const: General: comfortable, no acute distress and alert <Hue Hunt PA-C - Last Filed: 02/06/22 09:32> Orientation/consciousness: patient oriented x3 <Hue Hunt PA-C - Last Filed: 02/06/22 09:32> Resp: Effort & Inspection: normal respiratory effort <Hue Hunt PA-C - Last Filed: 02/06/22 09:32> Cardio: Rate: regular rate <Hue Hunt PA-C - Last Filed: 02/06/22 09:32> GI: Other: protuberant, JOEY drain with serosanguineous drainage, ecchymosis surrounding drain consistent with hematoma <KATHY Bautista Last Filed: 02/06/22 09:32> Inspection: Yes distended (softly) and Yes incision (clean) <KATHY Bautista Last Filed: 02/06/22 09:32> Palpation (GI): Soft to palpation, nontender, no guarding and not rigid <KATHY Bautista Last Filed: 02/06/22 09:32> Percussion: Yes tympanic to percussion (mild) <Hue Hunt PA-C - Last Filed: 02/06/22 09:32> Skin: General skin exam: no rashes or lesions noted <Hue Hunt PA-C - Last Filed: 02/06/22 09:32> Neuro: General: patient oriented x3 <Hue Hunt PA-C - Last Filed: 02/06/22 09:32> Objective Data Active Medications Acetaminophen (Acetaminophen 325 Mg Tablet) 975 mg PO TID@0800,1300,1700 [facility] Last Admin: 02/06/22 09:06 Dose: 975 mg Documented By: SHANIQUA Albuterol Sulfate (Albuterol Sulfate 90 Mcg 8 Gm Inhaler) 2 puff INHALE RQ4H PRN PRN Reason: Wheezing/congestion Albuterol/Ipratropium (Albuterol/Iprat 2.5/0.5mg 3 Ml Ampul.Neb) 3 ml INHALE RQ4H WHILE AWAKE [facility] Last Admin: 02/06/22 08:28 Dose: Not Given Documented By: BILL Non-Admin Reason: Patient Refused Atorvastatin Calcium (Atorvastatin Calcium 10 Mg Tablet) 10 mg PO DAILY@1700 [facility] Last Admin: 02/05/22 16:23 Dose: 10 mg Documented By: NATE Calcium Carbonate (Calcium Carbonate 500 Mg Tablet) 250 mg PO TID@0800,1200,1700 [facility] Last Admin: 02/06/22 09:07 Dose: 250 mg Documented By: SHANIQUA Carvedilol (Carvedilol 12.5 Mg Tablet) 12.5 mg PO BID@0800,1700 [facility]; Protocol Last Admin: 02/06/22 09:10 Dose: 12.5 mg Documented By: SHANIQUA Dextrose (Dextrose 50 % 25 Gm/50 Ml Syringe) 25 gm IVPUSH Q15M PRN; Protocol PRN Reason: per Hypoglycemia Standing Ord. Erythromycin (Erythromycin Base 0.5% Oph Oin 1 Gm Tube) 1 cm EYE-LEFT MOTH@0900 [facility] Last Admin: 02/06/22 09:10 Dose: 1 cm Documented By: SHANIQUA Escitalopram Oxalate (Escitalopram Oxalate 5 Mg Tablet) 5 mg PO DAILY [facility] Last Admin: 02/06/22 09:09 Dose: 5 mg Documented By: SHANIQUA Escitalopram Oxalate (Escitalopram Oxalate 10 Mg Tablet) 10 mg PO DAILY [facility] Last Admin: 02/06/22 09:08 Dose: 10 mg Documented By: SHANIQUA Fentanyl (Fentanyl Citrate/Pf 100 Mcg/2 Ml Vial) 25 mcg IVPUSH Q5M PRN; Protocol PRN Reason: Pain, Moderate (Pain Scale 4-6 Last Admin: 02/01/22 13:03 Dose: 25 mcg Documented By: KEVIN Ferrous Sulfate (Ferrous Sulfate 324 Mg Tablet.Dr) 324 mg PO DAILY@1700 [facility] Last Admin: 02/05/22 16:24 Dose: 324 mg Documented By: BERNARDINO-SOFFA Fluticasone/Vilanterol (Fluticasone/Vilanterol 200/25 Blst.W.Dev) 1 puff INHALE RDAILY [facility] Last Admin: 02/06/22 08:29 Dose: Not Given Documented By: BILL Non-Admin Reason: Patient Refused Furosemide (Furosemide 20 Mg Tablet) 20 mg PO DAILY [facility]; Protocol Last Admin: 02/06/22 09:08 Dose: 20 mg Documented By: SHANIQUA Glucose (Glucose Gel 15 Gm Gel..Gram.) 15 gm PO Q15M PRN; Protocol PRN Reason: per Hypoglycemia Standing Ord. Hydromorphone HCl (Hydromorphone Hcl 1 Mg/Ml Syringe) 0.5 mg IVPUSH Q4H PRN; Protocol PRN Reason: Pain, Severe (Pain Scale 7-10) Last Admin: 02/02/22 14:49 Dose: 0.5 mg Documented By: TERRIE Hydroxyzine HCl (Hydroxyzine Hcl 25 Mg Tablet) 25 mg PO DAILY [facility] Last Admin: 02/06/22 09:06 Dose: 25 mg Documented By: SHANIQUA Insulin Glargine (Insulin Glargine,Hum.Rec.Anlog 100 Unit/Ml 10 Ml Vial) 35 unit SUBCUT BID [facility] Last Admin: 02/06/22 09:19 Dose: Not Given Documented By: SHANIQUA Non-Admin Reason: No Insulin Coverage Insulin Human Lispro (Insulin Lispro 100 Unit/Ml 3 Ml Vial) 0 unit SUBCUT QIDACHS [facility]; Protocol Last Admin: 02/06/22 09:15 Dose: Not Given Documented By: SHANIQUA Non-Admin Reason: Patient Refused Latanoprost (Latanoprost 0.005 % Ophth Kathy 2.5 Ml Drops) 1 drop EYE-RIGHT DAILY@1700 [facility] Last Admin: 02/05/22 16:24 Dose: 1 drop Documented By: NATE Lisinopril (Lisinopril 5 Mg Tablet) 5 mg PO DAILY [facility]; Protocol Last Admin: 02/06/22 09:07 Dose: 5 mg Documented By: SHANIQUA Magnesium Oxide (Magnesium Oxide 400 Mg Tablet) 400 mg PO DAILY [facility] Last Admin: 02/06/22 09:18 Dose: 400 mg Documented By: SHANIQUA Melatonin (Melatonin 3 Mg Tablet) 6 mg PO DAILY@1700 [facility] Last Admin: 02/05/22 16:23 Dose: 6 mg Documented By: NATE Omeprazole (Omeprazole 40 Mg Capsule.Dr) 40 mg PO BID@0630,1630 [facility] Last Admin: 02/06/22 05:43 Dose: 40 mg Documented By: TYE Ondansetron HCl (Ondansetron Hcl 4 Mg/2 Ml Vial) 4 mg IVPUSH ONCE PRN PRN Reason: Nausea and Vomiting Oxycodone HCl (Oxycodone Hcl Immed Release 5 Mg Tablet) 5 mg PO Q4H PRN PRN Reason: Pain, Moderate (Pain Scale 4-6 Last Admin: 02/03/22 05:54 Dose: 5 mg Documented By: OSCAR Pentoxifylline (Pentoxifylline Er 400 Mg Tablet.Er) 400 mg PO BID [facility] Last Admin: 02/06/22 09:05 Dose: 400 mg Documented By: SHANIQUA Pharmacy Consult (Consult Rx Perform Med Rec) 1 each MISCELLANE ONCE PRN PRN Reason: Consult order Sodium Chloride (0.9 % Sodium Chloride Flush 3 Ml Syringe) 3 ml IVFLUSH QSHIFT [facility] Last Admin: 02/06/22 09:10 Dose: Not Given Documented By: SHANIQUA Non-Admin Reason: No Access <Hue Hunt PA-C - Last Filed: 02/06/22 09:32> Labs CBC & Chem 7: : 02/05/22 05:54 02/02/22 05:42 <Hue Hunt PA-C - Last Filed: 02/06/22 09:32> Labs: Laboratory Results - last 24 hr 02/05/22 02/05/22 02/05/22 11:15 15:40 20:13 POC Glucose 179 H 209 H 190 H 02/06/22 07:36 POC Glucose 215 H <Hue Hunt PA-C - Last Filed: 02/06/22 09:32> Procedures Date of Service Date of Service: 02/06/22 <Hue Hunt PA-C - Last Filed: 02/06/22 09:32> Progress Note: A&P Assessment and plan (1) S/P cholecystectomy: Status: Acute <Hue Hunt PA-C - Last Filed: 02/06/22 09:32> Assessment and Plan: Continues to feel well much less output from JOEY drain - removed without difficulty looks well says he is ready to be discharged today Seen and examined independently - agree with ROLANDO Hunt <Rafa Cameron MD - Last Filed: 02/06/22 09:31> Assessment and Plan: 66-year-old male patient with history of chronic abdominal pain in the right upper quadrant, POD #5 status post laparoscopic cholecystectomy. Operative findings included cirrhotic changes to liver. Patient feels improved this morning. He is tolerating a solid diet and has little pain. His JOEY drain output has decreased and is more serous in nature. His platelets have hovered around baseline, H/H trending up. His JOEY drain was removed. He feels ready and is stable for discharge back to [facility]. F/u in [address] Ricks. Patient comfortable with plan. <Hue Hunt PA-C - Last Filed: 02/06/22 09:32> Time Spent With Patient Time: Total time managing care of this patient today 35 minutes. <Hue Hunt PA-C - Last Filed: 02/06/22 09:32> Quality Stroke Does the patient have a stroke diagnosis?: No <Hue Hnut PA-C - Last Filed: 02/06/22 09:32> VTE Prior VTE?: No <Hue Hunt PA-C - Last Filed: 02/06/22 09:32> VTE Risk Level:: Surgical - high <Hue Hunt PA-C - Last Filed: 02/06/22 09:32> VTE Device Contraindication: N/A - Device Ordered <Hue Hunt PA-C - Last Filed: 02/06/22 09:32> VTE Drug Contraindication: Treatment Not Tolerated <Hue Hunt PA-C - Last Filed: 02/06/22 09:32>
--- NOTE | 2022-02-06 10:21 | PM.DS ---
DS: Providers Provider Date of Service: 02/06/22 Date of admission: 02/01/22 10:43 Date of discharge: 02/06/22 Primary care physician: Simona Fregoso MD Attending physician on admission: Frankie Ricks Consults: 02/01/22 14:02 Consult to Hospitalist Routine Consulting Provider: Hospitalist Reason For Exam: Medical management, diabetes, copd, s/p lap hamzah Attending physician on discharge: Rafa Cameron DS: Transfer Hospital Acceptance Name of Facility: [facility] DS: Diagnosis Discharge Diagnosis (1) S/P cholecystectomy: Status: Acute (2) COPD (chronic obstructive pulmonary disease): Status: Acute (3) CHF (congestive heart failure): Status: Acute DS: Summary Hospital Course Hospital Course: BRIEF HPI: 66-year-old male patient with repeated attacks of upper abdominal pain found to biliary sludge in the gallbladder. Patient presents today for laparoscopic possible open cholecystectomy. He received 1U of platelets prior to the procedure. HOSPITAL COURSE: On 02/01/22, a laparoscopic cholecystectomy was performed by Dr. Ricks without complication. He was found to have a cirrhotic liver and moderately inflamed gallbladder. A JOEY drain was left in place. The patient tolerated the procedure well and he was admitted for observation following given his comorbidities. Patient had increasing sanguineous discharge from his JOEY and received another unit of platelets and FFP.?His JOEY continued with high to moderate sanguineous output the next few operative days. His labs were followed. His H/H initially drifted down but began to trend up and his platelets also remained stable and around his baseline. His JOEY output downtrended and became more serous in nature. He was tolerating a solid diet, had adequate pain control and felt ready for discharge. He was passing flatus and had a small BM. His abdomen was benign with appropriate post op tenderness and incisions clean. His JOEY drain was removed. He was transferred back to [facility] on 02/06/22. Status at Discharge Functional status at discharge: wheelchair bound Overall status at discharge: patient is progressing back to baseline Time Spent with Patient Time attestation: Total time managing care of this patient today 40 minutes. Discharge coordination time: Greater than 30 minutes Quality: Safe Use of Opioids Does Pt have an Active Cancer Diagnosis on the Problem List?: No Quality: Stroke Does the patient have a stroke diagnosis?: No Physical Exam Vital Signs: Vital Signs: Last Vital Signs Temp 98.4 F 02/03/22 08:00 Pulse 75 02/03/22 13:00 Resp 16 02/03/22 13:00 BP 138/65 02/03/22 08:00 Pulse Ox 97 02/03/22 10:00 O2 Del Method 02/03/22 10:00 O2 Flow Rate 2 02/01/22 14:08 BMI result Body Mass Index 28.0 Const: General: comfortable, no acute distress and alert Orientation/consciousness: patient oriented x3 Resp: Effort & Inspection: normal respiratory effort GI: Other: protuberant; JOEY with serosanguineous drainage and removed, hematoma at drain site Inspection: No distended Palpation (GI): Soft to palpation, Tenderness to palpation present (GI) (mild, drain site), no guarding and not rigid Percussion: Yes normal to percussion Skin: General skin exam: no rashes or lesions noted Neuro: General: patient oriented x3 DS: Data Data Completed and Pending Completed studies during hospitalization [Text1]: Procedures Introduction of Mineral-based Topical Hemostatic Agent into Upper GI, Via Natural or Artificial Opening Endoscopic, [employer] 6 (02/20/20) Transfusion of Nonautologous Red Blood Cells into Peripheral Vein, Percutaneous Approach (02/20/20) Pending studies at discharge: Pending at discharge 02/01/22 10:05 Surgical [PTH] Routine Labs on day of discharge: Laboratory Results - last 24 hr 02/02/22 02/02/22 02/03/22 16:13 20:18 07:23 WBC RBC Hgb Hct MCV MCH MCHC RDW Plt Count MPV Immature Gran % (Auto) Neut % (Auto) Lymph % (Auto) [place] % (Auto) Eos % (Auto) Baso % (Auto) Lymph # (Auto) [place] # (Auto) Eos # (Auto) Baso # (Auto) Abs Immat Gran (auto) Absolute Neuts (auto) Absolute Nucleated RBC Nucleated RBC % (auto) PT INR POC Glucose 160 H 174 H 161 H 02/03/22 02/03/22 02/03/22 09:12 09:12 11:19 WBC 5.6 RBC 3.27 L Hgb 9.7 L Hct 29.9 L MCV 91.4 MCH 29.7 MCHC 32.4 RDW 15.6 Plt Count 47 L D MPV 12.4 Immature Gran % (Auto) 1.2 H Neut % (Auto) 70.8 Lymph % (Auto) 12.7 L [place] % (Auto) 9.1 Eos % (Auto) 5.5 H Baso % (Auto) 0.7 Lymph # (Auto) 0.7 L [place] # (Auto) 0.5 Eos # (Auto) 0.3 Baso # (Auto) 0.0 Abs Immat Gran (auto) 0.07 H Absolute Neuts (auto) 4.0 Absolute Nucleated RBC 0.000 Nucleated RBC % (auto) 0.0 PT 15.6 H INR 1.3 H POC Glucose 156 H Discharge Plan Discharge Anticipated Discharge Date/Time: 02/03/22 12:49 Patient Disposition: er [facility] Discharge Diagnosis: s/p laparoscopic cholecystectomy Referrals: [facility] [Outside] - 1 Week Frankie Ricks MD [Physician] - 1 Week Simona Fregoso MD [Primary Care Provider] - 1 Week Discharge Medications: New oxycodone 5 mg tablet 5 mg PO Q4H PRN (Reason: pain) Qty: 20 0RF Rx Instructions: Partial Fill upon patient request. Continued latanoprost 0.005 % drops 1 drp ophthalmic-Right DAILY@1700 carvedilol 12.5 mg tablet 1 tab PO BID@0800,1700 atorvastatin 10 mg tablet 1 tab PO DAILY@1700 citalopram 10 mg tablet 1 tab PO DAILY Rx Instructions: TDD = 30 MG pentoxifylline 400 mg tablet extended release 1 tab PO BID Hold Instructions: Resume on 03/02/20. if bleeding the stop citalopram 20 mg tablet 1 tab PO DAILY Rx Instructions: TDD = 30 MG hydroxyzine HCl 25 mg tablet 25 mg PO DAILY furosemide 20 mg tablet 1 tab PO DAILY omeprazole 40 mg Capsule,Delayed Release(Dr/Ec) 40 mg PO BID@0630,1630 Qty: 60 0RF acetaminophen 500 mg Tablet 1,000 mg PO TID@0800,1300,1700 insulin aspart U-100 [Novolog U-100 Insulin aspart] 100 unit/mL solution See Protocol subcut QIDACHS Protocol: Insulin Correction Scale Less than or equal to 110 ---- Give (units): 0 111 to 150 Give (units): 0 151 to 200 Give (units): 2 201 to 250 Give (units): 4 251 to 300 Give (units): 6 301 to 350 Give (units): 8 Greater than 350 Give (units): 10 Call MD if Blood Glucose > : 350 erythromycin 5 mg/gram (0.5 %) ointment 1 appl ophthalmic-Left MOTH@0900 ferrous sulfate 325 mg (65 mg iron) Tablet 325 mg PO DAILY@1700 calcium carbonate [Calcium Antacid] 200 mg calcium (500 mg) Tablet,Chewable 200 mg PO TID@0800,1200,1700 lisinopril 5 mg tablet 1 tab PO DAILY cholecalciferol (vitamin D3) 1,250 mcg (50,000 unit) Capsule 1,250 mcg PO QMONTH Rx Instructions: TAKES ON THE 16TH OF EACH MONTH melatonin 5 mg Tablet 5 mg PO DAILY@1700 magnesium oxide 400 mg magnesium Tablet 400 mg PO DAILY Levemir U-100 Insulin 100 unit/mL solution 50 unit subcut BID@0730,2000 sucralfate 1 gram tablet 1 g PO QID gabapentin 100 mg capsule 100 mg PO TID PRN (Reason: Pain) naloxone 4 mg/actuation spray,non-aerosol 1 spray intranasal Q2M Rx Instructions: spray 1 dose into ONE nostril; alternate nostrils w each dose until help arrives Discharge Orders: Discharge Order (Routine); Ordered 02/06/22 Ordered By: Hue Hunt Diet: Low fat, low cholesterol Activity on Discharge: No heavy lifting Stand Alone Forms: Patient Portal Discharge page Activity Restrictions/Additional Instructions: If the incision area is tender, you may apply an ice pack for short intervals (No more than 20 minutes on, followed by at least 20 minutes off). Do not apply heat. Do not use creams, lotions, or topical antibiotics unless instructed to do so by your surgeon. These can cause infection or allergic reaction. You have steri strips (small white cloth strips) covering your incision- these will fall off ~1 week. Follow up in office with Dr. Ricks in 1-2 weeks. ([phone]) Call Your Doctor If: -Your temperature exceeds 101.5? F -You experience excessive pain or swelling -You have an unexpected reaction to medication -You have excessive bleeding -You experience continued vomiting/nausea -Your incision begins to separate -Your incision shows signs of infection such as increased redness, swelling, excessive pain, drainage (light blood or clear fluid is normal) or heat Care Plan Goals: Return to baseline health and gradual return to activity following recovery period. Health Concerns: CHF, COPD, CKD biliary colic, GB sludge Plan of Treatment: s/p laparoscopic cholecystectomy f/u in office with Dr. Ricks Assessment: Doing well post op.
--- NOTE | 2022-02-06 10:56 | HO.PM.IMPN ---
Subjective Subjective Date of Service: 02/06/22 Interval History: Medical management of diabetes, COPD Review of Systems denies any sob or cough plan to remove neha drain Physical Exam Vital Signs: Vital Signs: Last Vital Signs Temp 97.2 F 02/06/22 07:26 Pulse 55 02/06/22 07:26 Resp 16 02/06/22 07:26 BP 144/92 H 02/06/22 07:26 Pulse Ox 97 02/06/22 07:26 O2 Del Method 02/06/22 07:26 O2 Flow Rate 2 02/01/22 14:08 BMI result Body Mass Index 28.0 ?? General: AOx3, no acute distress Resp: Mild rhonchi bilaterally, especially in lower lobes CVS: S1, S2, RRR GI: tenderness at surgical sites, neha tube in place( draining 75 ml as per chart review better ), blood soaking through dressing, +BS, no distention Skin: No rash Neuro: Motor grossly intact Extremities: no edema Psych: Appropriate affect Objective Data Active Medications Acetaminophen (Acetaminophen 325 Mg Tablet) 975 mg PO TID@0800,1300,1700 [facility] Last Admin: 02/06/22 09:06 Dose: 975 mg Documented By: SHANIQUA Albuterol Sulfate (Albuterol Sulfate 90 Mcg 8 Gm Inhaler) 2 puff INHALE RQ4H PRN PRN Reason: Wheezing/congestion Albuterol/Ipratropium (Albuterol/Iprat 2.5/0.5mg 3 Ml Ampul.Neb) 3 ml INHALE RQ4H WHILE AWAKE [facility] Last Admin: 02/06/22 08:28 Dose: Not Given Documented By: BILL Non-Admin Reason: Patient Refused Atorvastatin Calcium (Atorvastatin Calcium 10 Mg Tablet) 10 mg PO DAILY@1700 [facility] Last Admin: 02/05/22 16:23 Dose: 10 mg Documented By: NATE Calcium Carbonate (Calcium Carbonate 500 Mg Tablet) 250 mg PO TID@0800,1200,1700 [facility] Last Admin: 02/06/22 09:07 Dose: 250 mg Documented By: SHANIQUA Carvedilol (Carvedilol 12.5 Mg Tablet) 12.5 mg PO BID@0800,1700 [facility]; Protocol Last Admin: 02/06/22 09:10 Dose: 12.5 mg Documented By: SHANIQUA Dextrose (Dextrose 50 % 25 Gm/50 Ml Syringe) 25 gm IVPUSH Q15M PRN; Protocol PRN Reason: per Hypoglycemia Standing Ord. Erythromycin (Erythromycin Base 0.5% Oph Oin 1 Gm Tube) 1 cm EYE-LEFT MOTH@0900 [facility] Last Admin: 02/06/22 09:10 Dose: 1 cm Documented By: SHANIQUA Escitalopram Oxalate (Escitalopram Oxalate 5 Mg Tablet) 5 mg PO DAILY [facility] Last Admin: 02/06/22 09:09 Dose: 5 mg Documented By: SHANIQUA Escitalopram Oxalate (Escitalopram Oxalate 10 Mg Tablet) 10 mg PO DAILY [facility] Last Admin: 02/06/22 09:08 Dose: 10 mg Documented By: SHANIQUA Ferrous Sulfate (Ferrous Sulfate 324 Mg Tablet.Dr) 324 mg PO DAILY@1700 [facility] Last Admin: 02/05/22 16:24 Dose: 324 mg Documented By: BERNARDINO-SOFFA Fluticasone/Vilanterol (Fluticasone/Vilanterol 200/25 Blst.W.Dev) 1 puff INHALE RDAILY [facility] Last Admin: 02/06/22 08:29 Dose: Not Given Documented By: BILL Non-Admin Reason: Patient Refused Furosemide (Furosemide 20 Mg Tablet) 20 mg PO DAILY [facility]; Protocol Last Admin: 02/06/22 09:08 Dose: 20 mg Documented By: SHANIQUA Glucose (Glucose Gel 15 Gm Gel..Gram.) 15 gm PO Q15M PRN; Protocol PRN Reason: per Hypoglycemia Standing Ord. Hydromorphone HCl (Hydromorphone Hcl 1 Mg/Ml Syringe) 0.5 mg IVPUSH Q4H PRN; Protocol PRN Reason: Pain, Severe (Pain Scale 7-10) Last Admin: 02/02/22 14:49 Dose: 0.5 mg Documented By: DABLauor Hydroxyzine HCl (Hydroxyzine Hcl 25 Mg Tablet) 25 mg PO DAILY [facility] Last Admin: 02/06/22 09:06 Dose: 25 mg Documented By: SHANIQUA Insulin Glargine (Insulin Glargine,Hum.Rec.Anlog 100 Unit/Ml 10 Ml Vial) 35 unit SUBCUT BID [facility] Last Admin: 02/06/22 09:19 Dose: Not Given Documented By: SHANIQUA Non-Admin Reason: No Insulin Coverage Insulin Human Lispro (Insulin Lispro 100 Unit/Ml 3 Ml Vial) 0 unit SUBCUT QIDACHS [facility]; Protocol Last Admin: 02/06/22 09:15 Dose: Not Given Documented By: SHANIQUA Non-Admin Reason: Patient Refused Latanoprost (Latanoprost 0.005 % Ophth Kathy 2.5 Ml Drops) 1 drop EYE-RIGHT DAILY@1700 [facility] Last Admin: 02/05/22 16:24 Dose: 1 drop Documented By: NATE Lisinopril (Lisinopril 5 Mg Tablet) 5 mg PO DAILY [facility]; Protocol Last Admin: 02/06/22 09:07 Dose: 5 mg Documented By: SHANIQUA Magnesium Oxide (Magnesium Oxide 400 Mg Tablet) 400 mg PO DAILY [facility] Last Admin: 02/06/22 09:18 Dose: 400 mg Documented By: SHANIQUA Melatonin (Melatonin 3 Mg Tablet) 6 mg PO DAILY@1700 [facility] Last Admin: 02/05/22 16:23 Dose: 6 mg Documented By: NATE Omeprazole (Omeprazole 40 Mg Capsule.Dr) 40 mg PO BID@0630,1630 [facility] Last Admin: 02/06/22 05:43 Dose: 40 mg Documented By: TYE Ondansetron HCl (Ondansetron Hcl 4 Mg/2 Ml Vial) 4 mg IVPUSH ONCE PRN PRN Reason: Nausea and Vomiting Oxycodone HCl (Oxycodone Hcl Immed Release 5 Mg Tablet) 5 mg PO Q4H PRN PRN Reason: Pain, Moderate (Pain Scale 4-6 Last Admin: 02/03/22 05:54 Dose: 5 mg Documented By: OSCRA Pentoxifylline (Pentoxifylline Er 400 Mg Tablet.Er) 400 mg PO BID [facility] Last Admin: 02/06/22 09:05 Dose: 400 mg Documented By: SHANIQUA Pharmacy Consult (Consult Rx Perform Med Rec) 1 each MISCELLANE ONCE PRN PRN Reason: Consult order Sodium Chloride (0.9 % Sodium Chloride Flush 3 Ml Syringe) [facility] Last Admin: 02/06/22 09:10 Dose: Not Given Documented By: SHANIQUA Non-Admin Reason: No Access Labs CBC & Chem 7: 02/05/22 05:54 02/02/22 05:42 Labs: Laboratory Results - last 24 hr 02/05/22 02/05/22 02/05/22 11:15 15:40 20:13 POC Glucose 179 H 209 H 190 H 02/06/22 07:36 POC Glucose 215 H Assessment and Plan (1) COPD (chronic obstructive pulmonary disease): Status: Acute Plan 66-year-old male with a PMH significant for paroxysmal AFib, CHF, BPH, COPD, insulin-dependent type 2 diabetes, GERD, hypothyroidism, depression, thrombocytopenia secondary to ITP, blindness of the left eye, gout, and history of upper GI bleed who is in the hospital s/p lap radha. A resident of [facility].? Hospitalist consult for medical management of patient. # s/p lap radha -- as per general surgery management has neha drain ( drainage improvin-as per chart review has around 130ml) # insulin-dependent type 2 diabetes: controlled hold home meds -- ssi, lantus # COPD: stable -- pt on albuterol inhaler prn at home, though not on home med list,added breo -- albuterol prn # anemia -- pt's H&H around 9.7/29.9 -- continue to monitor #HTN -- continue home meds # paroxysmal atrial fibrillation- no RVR -- continue home meds -- not on anticoagulation- hx GI bleeding #CHF without acute exacerbation unspecified type- euvolemic -- Continue furosemide # hypothyroidism -- continue levothyroxine # HLD -- continue statin # hypocalcemia -- chronic, near baseline -- continue home meds # depression -- continue citalopram # chronic normocytic anemia-stable -- continue ferrous sulfate #thrombocytopenia secondary to ITP -- stable, at baseline platelets flactuates between 40-60 range no overt bleedin or change in h/h ,continue to moniter # PAD -- continue pentoxifylline inpatient need -as per primary team.we will sign off ,please call us for any questions. Time Spent With Patient Time: Total time managing care of this patient today ____ minutes. Quality Stroke Does the patient have a stroke diagnosis?: No VTE Prior VTE?: No VTE Risk Level:: Surgical - high VTE Device Contraindication: N/A - Device Ordered VTE Drug Contraindication: Treatment Not Tolerated
[2022-02-06 11:29] LABS: Glucose, Whole Blood 158 mg/dL (60-115)
== END 2022-02-06 11:00 | disposition skilled nursing facility (03) | DRG 418 ==
LOC: HO.SSSA 10:53 → HO.S3 11:07
PROVIDERS: Nurse Practitioner; Physician Assistant Surgical; Surgery; Admitting Provider Surgery; PCP Internal Medicine; Responsible Provider Internal Medicine; Visit Provider Surgery
PROC: 0FT44ZZ Resection of Gallbladder, Percutaneous Endoscopic Approach (ICD-10-PCS; CPT 47562; principal; 2022-02-01 09:30)
DX: K80.70 Calculus of gallbladder and bile duct without cholecystitis without obstruction (principal); D69.3 Immune thrombocytopenic purpura; E03.9 Hypothyroidism, unspecified; K21.9 Gastro-esophageal reflux disease without esophagitis; Z86.16 Personal history of COVID-19; K74.60 Unspecified cirrhosis of liver; E11.51 Type 2 diabetes mellitus with diabetic peripheral angiopathy without gangrene; D64.9 Anemia, unspecified; N40.0 Benign prostatic hyperplasia without lower urinary tract symptoms; J44.9 Chronic obstructive pulmonary disease, unspecified; I11.0 Hypertensive heart disease with heart failure; I50.9 Heart failure, unspecified; E83.51 Hypocalcemia; F32.9 Major depressive disorder, single episode, unspecified; Z20.822 Contact with and (suspected) exposure to COVID-19; Z87.891 Personal history of nicotine dependence; Z79.4 Long term (current) use of insulin; Z79.890 Hormone replacement therapy; Z79.899 Other long term (current) drug therapy
CPT/HCPCS: 36415; 80048; 82947; 85025; 85027; 85610; 86850; 86900; 86901; 87635; 88304; 88312; 88341; 88342; 94640; J1170; J2405; J3010; P9017; P9073

== ENCOUNTER → 2022-02-14 14:12 | Outpatient (BNVA) | payer MEDICARE, MEDICAID, SELFPAY | PROVIDERS: PCP Internal Medicine; Visit Provider Surgery | DX: Z13.89 Encounter for screening for other disorder (principal) | CPT/HCPCS: 99212 ==

== ENCOUNTER 2022-02-28 13:07 | Outpatient (REF) | payer MEDICARE, MEDICAID, SELFPAY ==
--- NOTE | 2022-02-28 13:17 | MHC.AU.NMH ---
Hearing Aid Delivery Receipt: Third Green Party Payor [facility] type [facility] Other: Date of Fitting: End of Adjustment Period: 30 days from date of fitting Cane Packer: Right Ear: Left Ear: Make, Model, Serial Number and Color: Phonak Radha V50-SP BTE SN: [id number] Color: Jaimeagne/New Serial #[id number] Color: Silver Spann Phonak Radha P70-UP Make, Model, Serial Number and Color: Phonak Radha V50-SP BTE SN: [id number] Color: Champagne/ New serial #[id number] Color: Silver Spann Phonak Radha P70-UP Lead Consultant/Slim Tube: Lead Consultant/Slim Tube: Earmold/Dome/CShell/SlimTip: Micronsonic canal lock Earmold/Dome/CShell/SlimTip: Microsonic canal lock Type of Wax Guard: Type of Wax Guard: Battery Size: 13 Battery Size: 13 Elevated Guard Repair Warranty: 04/23/2025 Elevated Guard Repair Warranty: 04/23/2025 Elevated Guard Loss and Damage Warranty: Elevated Guard Loss and Damage Warranty: [facility] Service Agreement ends one year from date of fitting on? [facility] Service Agreement ends one year from date of fitting on Accessories/Assistive Technology: Following the expiration of [facility]s service agreement, charges for items and services listed above are billed at the usual and customary rate. *If coverage by third constitution party payor exists, medically necessary modifications, repairs, etc. will be billed to said third constitution party payor. If there is no third constitution party payor eligibility beyond the service agreement or monumental stonemason warranty periods, items will be billed per usual and customary rates and payment is expected at the time of service. Hearing aids that are lost or damaged beyond repair cannot be returned for credit, and the personnel scheduler is liable for the full purchase harris. My signature below acknowledges that I have read and understand this hearing aid contract and have received the goods and services out lined above. ?Date? Home Address: ? PATIENT STICKER ? This hearing aid will not restore normal hearing nor will it prevent further hearing loss. The sale of a hearing aid is restricted to those individuals who have obtained a medical evaluation from a licensed physician or content writer. A fully informed adult whose anabaptist or personal beliefs preclude consultation with a physician may waive the requirement of a medical evaluation. The exercise of such a waiver is not in your best health interest and its use is strongly discouraged. It is also required that a person under the age of eighteen years obtain an evaluation by an resistance welding machine operator in addition to the medical evaluation before a hearing aid can be sold to such person. Carlin Cosme,Title XV,Chapter 93:74
--- NOTE | 2022-02-28 13:22 | MHC.AU.NMH ---
Hearing Aid Delivery Receipt: Third Democrat Payor [facility] type [facility] Other: Date of Fitting: End of Adjustment Period: 30 days from date of fitting Dress Shoe Inspector: Right Ear: Left Ear: Make, Model, Serial Number and Color: Phonak Radha V50-SP BTE SN: [id number] Color: Jaimeagne/New Serial #[id number] Color: Silver Spann Phonak Radha P70-UP Make, Model, Serial Number and Color: Phonak Radha V50-SP BTE SN: [id number] Color: Champagne/ New serial #[id number] Color: Silver Spann Phonak Radha P70-UP Leather Worker/Slim Tube: Leather Worker/Slim Tube: Earmold/Dome/CShell/SlimTip: Micronsonic canal lock Earmold/Dome/CShell/SlimTip: Microsonic canal lock Type of Wax Guard: Type of Wax Guard: Battery Size: 13 Battery Size: 13 Steam Heating Installer Repair Warranty: 04/23/2025 Steam Heating Installer Repair Warranty: 04/23/2025 Steam Heating Installer Loss and Damage Warranty: Steam Heating Installer Loss and Damage Warranty: [facility] Service Agreement ends one year from date of fitting on? [facility] Service Agreement ends one year from date of fitting on Accessories/Assistive Technology: Following the expiration of [facility]s service agreement, charges for items and services listed above are billed at the usual and customary rate. *If coverage by third alliance party payor exists, medically necessary modifications, repairs, etc. will be billed to said third alliance party payor. If there is no third alliance party payor eligibility beyond the service agreement or technician anatomic pathology warranty periods, items will be billed per usual and customary rates and payment is expected at the time of service. Hearing aids that are lost or damaged beyond repair cannot be returned for credit, and the photogravure press operator is liable for the full purchase harris. My signature below acknowledges that I have read and understand this hearing aid contract and have received the goods and services out lined above. ?Date? Home Address: ? PATIENT STICKER ? This hearing aid will not restore normal hearing nor will it prevent further hearing loss. The sale of a hearing aid is restricted to those individuals who have obtained a medical evaluation from a licensed physician or ict help desk technician. A fully informed adult whose taoist or personal beliefs preclude consultation with a physician may waive the requirement of a medical evaluation. The exercise of such a waiver is not in your best health interest and its use is strongly discouraged. It is also required that a person under the age of eighteen years obtain an evaluation by an custom shop worker in addition to the medical evaluation before a hearing aid can be sold to such person. Carlin Cosme,Title XV,Chapter 93:74
== END 2022-02-28 13:08 | disposition home or self-care (01) ==
LOC: HO.HAP 13:07
PROVIDERS: Visit Provider Internal Medicine
DX: Z46.1 Encounter for fitting and adjustment of hearing aid (principal); H90.3 Sensorineural hearing loss, bilateral
CPT/HCPCS: V5011; V5020; V5160; V5261; V5264; V5266

== ENCOUNTER → 2022-03-28 09:40 | Outpatient (BNVA) | payer MEDICARE, MEDICAID, SELFPAY | PROVIDERS: PCP Emergency Medicine; Visit Provider Internal Medicine | DX: R13.10 Dysphagia, unspecified (principal); K74.60 Unspecified cirrhosis of liver; I77.6 Arteritis, unspecified; D64.9 Anemia, unspecified | CPT/HCPCS: 99202 ==

== ENCOUNTER 2022-03-31 07:45 | Outpatient (REF) | payer MEDICARE, MEDICAID, SELFPAY ==
--- NOTE | ~2022-03-31 | XR_ITS ---
EXAMINATION: XR HAND/WRIST, RIGHT XR HAND/WRIST, LEFT CLINICAL INFORMATION: Gout, unspecified. COMPARISON: None TECHNIQUE: PA, lateral, oblique, and scaphoid views of the each hand and wrist. FINDINGS: RIGHT HAND/WRIST: Bones are osteopenic. There is ulnar translation of the carpus at the level of the radiocarpal joints with associated joint space narrowing at the radiocarpal and ulnocarpal joints. 5 mm of positive ulnar variance is noted with osteoarthritis at the distal radioulnar joint. Dorsal subluxation of the distal ulna at the level of the DRUJ is possible, though the specificity of this assessment for DRUJ abnormalities is limited due to obliquity of the lateral view. There is orhn-of-lqbaqxkb osteoarthritis in the triscaphe and 1st CMC joints with nonuniform joint space narrowing and small marginal osteophytes. More iemx-zu-wxdhvfvt multifocal osteoarthritis is also present in the interphalangeal joints, most notably at the DIP joints of the long finger and small finger. There is a questionable erosion at the radial margin of the ring finger proximal phalanx at the level of the PIP joint as seen on the oblique view. No additional erosions are identified. No appreciable calcified tophi. LEFT HAND/WRIST: Bones are osteopenic. There is moderate osteoarthritis the 1st CMC joint with nonuniform joint space narrowing, marginal osteophytes, and articular sclerosis. There is more mild osteoarthritis in the radiocarpal and 1st CMC joints as well as rkgt-yd-jhivcucr distal radioulnar osteoarthritis. Periosteal bone formation is noted at the ulnar styloid. No discrete erosions are identified. There is mild multifocal osteoarthritis in the interphalangeal joints. No appreciable erosions. XR/XR hand wrist LT IMPRESSION: 1. 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 2. Small single questionable erosion at the radial margin of the right ring finger proximal phalanx at the level of the PIP joint. Gout is a possible explanation, though no additional erosive changes are identified in either hand. 3. 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 4. Osteopenia.
--- NOTE | ~2022-03-31 | XR_ITS ---
EXAMINATION: XR ELBOW, LEFT CLINICAL INFORMATION: Gout. COMPARISON: None TECHNIQUE: AP, lateral, and oblique views of the left elbow. FINDINGS: Numerous foci of calcium deposition are evident in the region of the triceps tendon insertion and at the common extensor tendon origin of the lateral humeral condyle, most consistent with calcified tophi. In the region of the triceps insertion at the olecranon, this aggregation measures approximately 3 x 1 x 1 cm. A smaller focus at the posterior aspect of the proximal ulnar shaft measures approximately 1.2 x 0.5 x 0.6 cm. No acute fracture or malalignment. Mild osteoarthritis at the joint is characterized by small marginal osteophytes and nonuniform joint space narrowing. No discrete erosions are identified. Small joint effusion. XR/XR elbow LT min 3V IMPRESSION: 1. Multiple calcified tophi in the region of the triceps tendon insertion and at the origin of the lateral humeral condyle, consistent with the provided history of gout. 2. Mild osteoarthritis in the elbow with a small joint effusion. No significant erosions.
--- NOTE | ~2022-03-31 | XR_ITS ---
EXAMINATION: XR HAND/WRIST, RIGHT XR HAND/WRIST, LEFT CLINICAL INFORMATION: Gout, unspecified. COMPARISON: None TECHNIQUE: PA, lateral, oblique, and scaphoid views of the each hand and wrist. FINDINGS: RIGHT HAND/WRIST: Bones are osteopenic. There is ulnar translation of the carpus at the level of the radiocarpal joints with associated joint space narrowing at the radiocarpal and ulnocarpal joints. 5 mm of positive ulnar variance is noted with osteoarthritis at the distal radioulnar joint. Dorsal subluxation of the distal ulna at the level of the DRUJ is possible, though the specificity of this assessment for DRUJ abnormalities is limited due to obliquity of the lateral view. There is sgvk-gd-gsywlzpl osteoarthritis in the triscaphe and 1st CMC joints with nonuniform joint space narrowing and small marginal osteophytes. More dthb-wu-znzcbtsm multifocal osteoarthritis is also present in the interphalangeal joints, most notably at the DIP joints of the long finger and small finger. There is a questionable erosion at the radial margin of the ring finger proximal phalanx at the level of the PIP joint as seen on the oblique view. No additional erosions are identified. No appreciable calcified tophi. LEFT HAND/WRIST: Bones are osteopenic. There is moderate osteoarthritis the 1st CMC joint with nonuniform joint space narrowing, marginal osteophytes, and articular sclerosis. There is more mild osteoarthritis in the radiocarpal and 1st CMC joints as well as pcpd-pa-mhuuezja distal radioulnar osteoarthritis. Periosteal bone formation is noted at the ulnar styloid. No discrete erosions are identified. There is mild multifocal osteoarthritis in the interphalangeal joints. No appreciable erosions. XR/XR hand wrist RT IMPRESSION: 1. 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 2. Small single questionable erosion at the radial margin of the right ring finger proximal phalanx at the level of the PIP joint. Gout is a possible explanation, though no additional erosive changes are identified in either hand. 3. 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 4. Osteopenia.
[2022-03-31 09:33] LABS: MANUAL DIFF FLAG NO
[2022-03-31 09:38] LABS: Basophils Percent Auto 0.5 % (0-2); Eosinophils Absolute Auto 0.3 X10*3/uL (0.0-0.4); Eosinophils Percent Auto 5.1 % (0-4); Hematocrit 33.7 % (42.0-52.0); Hemoglobin 11.3 g/dl (14.0-18.0); Imm Gran Abs Auto 0.02 X10*3/uL (0.00-0.03); Imm Gran Pct Auto 0.3 % (0.0-0.4); Lymphocytes Absolute Auto 0.7 X10*3/uL (1.2-4.9); Lymphocytes Percent Auto 12.5 % (20-40); Mean Corpuscular HGB Conc 33.5 g/dl (31.0-36.0); Mean Corpuscular Hemoglobin 29.7 pg (27.0-33.0); Mean Corpuscular Volume 88.5 fL (80.0-98.0); Mean Platelet Volume 12.9 fL (9.4-12.4); Monocytes Absolute Auto 0.6 X10*3/uL (0.1-1.2); Monocytes Percent Auto 9.6 % (2-11); Neutrophils Absolute Auto 4.2 x10*3/uL (2.0-8.3); Red Blood Count 3.81 X10*6/uL (4.60-5.80); Red Cell Distribution Width 14.6 % (11.0-16.0); White Blood Count 5.9 X10*3/uL (4.8-10.8)
[2022-03-31 09:41] LABS: Platelet Count 41 X10*3/uL (160-400)
[2022-03-31 10:33] LABS: Erythrocyte Sedimentation Rate 26 MM/HR (0-15)
[2022-03-31 10:36] LABS: Alanine Aminotransferase 11 U/L (0-40); Albumin Level 3.7 g/dL (3.5-5.0); Alkaline Phosphatase 100 U/L (39-117); Anion Gap 15 (12-20); Aspartate Amino Transferase 26 U/L (5-37); Bilirubin Total 1.8 mg/dL (0.0-1.0); Blood Urea Nitrogen 8 mg/dL (9-16); C Reactive Protein 2.39 mg/dL (< or = 0.50); Calcium 7.8 mg/dL (8.4-10.2); Carbon Dioxide 27 mmol/L (22-29); Chloride 104 mmol/L (96-108); Estimated Glomerular Filt Rate > 60; Glucose Random 138 mg/dL (60-115); Potassium 3.2 mmol/L (3.3-5.1); Rheumatoid Factor < 13.0 IU/mL (<15.0); Sodium 143 mmol/L (135-145); Total Protein 6.6 g/dL (6.5-8.0); Uric Acid 6.7 mg/dL (3.4-7.0)
[2022-03-31 10:47] LABS: HIV AB/AG Nonreactive (Nonreactive); HIV Num 1 0.09 S/CO (0.00-0.99)
[2022-03-31 10:58] LABS: Folate 8.3 ng/mL (> or = 4.0); TSH reflex Free T4 0.06 uIU/mL (0.32-4.0); Vitamin B12 570 pg/mL (200-900)
[2022-03-31 13:25] LABS: Magnesium 1.5 mg/dL (1.6-2.6); Phosphorus 3.9 mg/dL (2.7-4.5)
[2022-03-31 13:39] LABS: Free T4 (Free Thyroxine) 1.21 ng/dL (0.71-1.85)
[2022-04-03 10:29] LABS: TS Negative Control Passed; TS Panel A 0; TS Panel B 0; TS Positive Control Passed; TSpotTB Negative (Negative)
[2022-04-03 13:15] LABS: PTHI 9 pg/mL (16-77)
[2022-04-03 14:59] LABS: Immunoglobulin G Subclass 1 733 mg/dL (382-929); Immunoglobulin G Subclass 2 264 mg/dL (241-700); Immunoglobulin G Subclass 3 50 mg/dL (22-178); Immunoglobulin G Subclass 4 119.1 mg/dL (4-86); Immunoglobulin G Total 1231 mg/dL (600-1540)
[2022-04-03 17:24] LABS: Complement C3 103 mg/dL (82-185); Thyroglobulin Antibodies <1 IU/mL (< or = 1); Thyroid Peroxidase Antibodies <1 IU/mL (<9)
[2022-04-03 22:49] LABS: Cardiolipin IgG Ab <2.0 GPL-U/mL; Cardiolipin IgM Ab <2.0 MPL-U/mL
[2022-04-04 12:04] LABS: Prot Elec - Albumin 3.4 g/dL (3.8-4.8); Prot Elec - Alpha1 0.3 g/dL (0.2-0.3); Prot Elec - Alpha2 0.8 g/dL (0.5-0.9); Prot Elec - Beta 1 0.4 g/dL (0.4-0.6); Prot Elec - Beta 2 0.5 g/dL (0.2-0.5); Prot Elec - Gamma 1.3 g/dL (0.8-1.7); Prot Elec - Total Protein 6.7 g/dL (6.1-8.1)
[2022-04-04 13:13] LABS: Anti DNA DS Antibody <1 IU/mL; Antibody to SS-A Antigen <1.0 NEG AI (<1.0 NEG); Antibody to SS-B Antigen <1.0 NEG AI (<1.0 NEG); Myeloperoxidase Antibody <1.0 AI; Proteinase 3 PR3 Antibodies <1.0 AI; SM/Ribonucleoprotein Ab <1.0 NEG AI (<1.0 NEG); Smith Protein <1.0 NEG AI (<1.0 NEG)
[2022-04-04 14:33] LABS: IgA 498 mg/dL (70-320); IgG 1290 mg/dL (600-1540); IgM 26 mg/dL (50-300)
[2022-04-04 14:59] LABS: Cyclic Citrullinated Peptide <16 UNITS
[2022-04-04 15:48] LABS: Anti Nuclear Antibody Screen NEGATIVE (NEGATIVE)
[2022-04-05 15:09] LABS: Angiotensin Converting Enzyme 11.7 U/L (9-67)
[2022-04-05 20:42] LABS: Lysozyme, Serum 8.4 mcg/mL (5.0-11.0)
[2022-04-06 05:19] LABS: PTT (LAC) Screen 39 sec (<=40)
[2022-04-06 10:59] LABS: DNAds, Crithidia Antibody Negative (Negative)
[2022-04-06 20:59] LABS: Beta-2 Glycoprotein IgA <2.0 U/mL (<20.0); Beta-2 Glycoprotein IgG <2.0 U/mL (<20.0); Beta-2 Glycoprotein IgM <2.0 U/mL (<20.0)
[2022-04-07 14:09] LABS: Calcium (PTHI) 7.7 mg/dL (8.6-10.3); Vitamin D 25-OH, D2 <4 ng/mL; Vitamin D 25-OH, D3 36 ng/mL; Vitamin D 25-OH, Total 36 ng/mL (30-100)
[2022-04-10 15:44] LABS: TPMT Activity 17
== END 2022-03-31 07:46 | disposition home or self-care (01) ==
LOC: HO.LAB 07:45
PROVIDERS: PCP Emergency Medicine; Visit Provider Student in an Organized Health Care Education/Training Program
DX: I77.6 Arteritis, unspecified (principal); E11.9 Type 2 diabetes mellitus without complications; K74.60 Unspecified cirrhosis of liver; I48.91 Unspecified atrial fibrillation; M1A.09X1 Idiopathic chronic gout, multiple sites, with tophus (tophi); D86.9 Sarcoidosis, unspecified; M32.9 Systemic lupus erythematosus, unspecified; D68.61 Antiphospholipid syndrome; M25.541 Pain in joints of right hand; D64.9 Anemia, unspecified; D89.89 Other specified disorders involving the immune mechanism, not elsewhere classified; E07.9 Disorder of thyroid, unspecified; E83.51 Hypocalcemia; Z79.899 Other long term (current) drug therapy; Z79.624 Long term (current) use of inhibitors of nucleotide synthesis; Z11.59 Encounter for screening for other viral diseases; Z11.7 Encounter for testing for latent tuberculosis infection
CPT/HCPCS: 36415; 73080; 73110; 73130; 80053; 82164; 82306; 82595; 82607; 82657; 82746; 82784; 83516; 83735; 83970; 84100; 84165; 84439; 84443; 84550; 85025; 85549; 85597; 85613; 85652; 85730; 86021; 86038; 86039; 86140; 86146; 86147; 86160; 86200; 86225; 86235; 86255; 86334; 86376; 86431; 86481; 86800; 87389; 99202

== ENCOUNTER → 2022-04-24 10:45 | Outpatient (BNVA) | payer MEDICARE, MEDICAID, SELFPAY | PROVIDERS: PCP Emergency Medicine; Referring Provider Emergency Medicine; Visit Provider Internal Medicine | DX: K74.60 Unspecified cirrhosis of liver (principal); R13.10 Dysphagia, unspecified; I77.6 Arteritis, unspecified; D64.9 Anemia, unspecified; R63.4 Abnormal weight loss | CPT/HCPCS: 99212 ==

== ENCOUNTER 2022-05-01 10:05 | Outpatient (REF) | payer MEDICARE, MEDICAID, SELFPAY | END 2022-05-01 10:06 | disposition home or self-care (01) | LOC: HO.HAP 10:05 | PROVIDERS: Visit Provider Internal Medicine | DX: Z13.89 Encounter for screening for other disorder (principal) ==

== ENCOUNTER 2022-05-05 09:08 | Outpatient (REF) | payer MEDICARE, MEDICAID, SELFPAY ==
--- NOTE | ~2022-05-05 | US_ITS ---
EXAMINATION: US ABDOMEN COMPLETE CLINICAL INFORMATION: Unspecified cirrhosis of liver. COMPARISON: CT abdomen and pelvis without contrast dated 01/02/2022. Ultrasound abdomen limited dated 01/02/2022 and 12/07/2021. TECHNIQUE: Real-time imaging of the abdominal viscera. FINDINGS: PANCREAS: The pancreas appears unremarkable, without masses or ductal dilatation, with the exception of the tail which is obscured by bowel gas. ABDOMINAL AORTA: The proximal, mid, and distal segments are normal in caliber. INFERIOR VENA CAVA: Visualized portions are normal. LIVER: Liver echogenicity is heterogeneous with minimally nodular contour. No focal hepatic lesion. There is no intrahepatic biliary duct dilatation seen. GALLBLADDER: Surgically absent. COMMON BILE DUCT: Normal in caliber measuring 0.4 cm in diameter. RIGHT KIDNEY: There is a shadowing nonobstructing calculus in the upper pole of the right kidney measuring 9 mm with twinkle artifact corresponding to the stone that can be seen on the 01/02/2022 CT scan. No hydronephrosis or focal parenchymal lesions. The kidney measures 10.7 cm in maximum dimension. LEFT KIDNEY: Benign Bosniak class I and II cysts are present in the left kidney one of which demonstrates a calcified thin septation which could also be appreciated on the 01/02/2022 CT scan. These need no additional imaging or follow-up. No hydronephrosis or renal calculi. The kidney measures 10.0 cm in maximum dimension. SPLEEN: Varices are noted adjacent to the spleen. The spleen measures 8.5 cm in maximum dimension. FREE FLUID: None. US/US abdomen complete IMPRESSION: 1. Heterogeneous liver with slightly nodular contour consistent with cirrhosis. No focal mass is seen. 2. Nonobstructing right renal calculus.
--- NOTE | ~2022-05-05 | US_ITS ---
EXAMINATION: US duplex arterial venous comp CLINICAL INFORMATION: Cirrhosis with perisplenic varices COMPARISON: None TECHNIQUE: Color and spectral Doppler evaluation of the hepatic vasculature. Images are obtained in conjunction with ultrasound of the abdomen performed the same day on 05/05/2022. FINDINGS: SPLENIC VEIN: Patent with normal waveforms. HEPATIC VEINS: Patent with normal waveforms. PORTAL VEINS: Within the main portal vein, there is some chronic appearing wall adherent thrombus with otherwise patent hepatopedal flow seen. The right and left intrahepatic portal veins are widely patent with normal hepatopedal flow. HEPATIC ARTERIES: Normal upstroke and diastolic flow. INFERIOR VENA CAVA: Patent with normal waveforms. ABDOMINAL AORTA: The visualized proximal segment is normal in caliber. 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 Remaining hepatic vasculature is patent with normal flow.
== END 2022-05-05 09:09 | disposition home or self-care (01) ==
LOC: HO.US 09:08
PROVIDERS: Visit Provider Internal Medicine
DX: K74.60 Unspecified cirrhosis of liver (principal)
CPT/HCPCS: 76700; 93975

== ENCOUNTER 2022-05-15 13:45 | Outpatient (REF) | payer MEDICARE, MEDICAID, SELFPAY ==
--- NOTE | ~2022-05-15 | MR_ITS ---
EXAMINATION: MR ANGIOGRAPHY CHEST WITHOUT AND WITH CONTRAST CLINICAL INFORMATION: Arthritis. COMPARISON: Abdominal ultrasound 05/05/2022, arterial duplex 05/05/2022. TECHNIQUE: Routine pulse sequences were performed both before and after contrast media. For the contrast-enhanced portion of the study, a total of 20 mL of Gadavist was utilized. Additional 2-D coronal and sagittal reformatted images and axial 3-D maximum intensity projection MIP images are generated on the CT workstation. VASCULAR FINDINGS: The study is degraded by motion artifact. The thoracic aorta is unremarkable without evidence of aneurysm or dissection. Maximal dimension of the ascending aorta perpendicular to a center line is about 3.9 cm. Maximal dimension for a patient of 66 years of age would be 4.2 cm. 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 The great vessels are patent without areas of stenosis, dissection or aneurysm formation. No evidence seen to suggest arteritis although as mentioned above, there is marked motion artifact degrading fine detail. NON-VASCULAR FINDINGS: No large lung masses are seen. No pleural effusions are seen. No mediastinal or hilar lymphadenopathy. Heart size normal. Incidental note made of a cirrhotic-appearing liver and a benign Bosniak class I left renal cyst. MR/MR angio chest wo/w con IMPRESSION: 1. The study is degraded by motion artifact. 2. The great vessels are patent without evidence of stenosis, dissection or aneurysm formation. 3. Incidental note made of an aberrant right subclavian artery and a cirrhotic-appearing liver.
== END 2022-05-15 13:46 | disposition home or self-care (01) ==
LOC: HO.MRI 13:45
PROVIDERS: PCP Emergency Medicine; Visit Provider Student in an Organized Health Care Education/Training Program
DX: Z13.89 Encounter for screening for other disorder (principal)
CPT/HCPCS: 71555; A9585

== ENCOUNTER 2022-05-17 13:44 | Inpatient (IN) | payer MEDICARE, MEDICAID, SELFPAY ==
--- NOTE | ~2022-05-17 | FL_ITS ---
EXAMINATION: XR FLUOROSCOPY CLINICAL INFORMATION: Severe esophageal stricture. Placement of NG tube rather than a NJ tube COMPARISON: None available. TECHNIQUE: Fluoroscopic guided nasogastric tube placement. FINDINGS: Informed consent was obtained from the patient prior to the procedure. During this process, the procedure and potential alternatives were explained, along with the intended outcome and benefits. The risks of the procedure, as well as the risk of not doing the procedure, were discussed. The patient was given the opportunity to ask questions regarding the procedure and appeared competent to make medical decisions. A signed consent form which documents this discussion was placed in the medical record. From a right nasal approach a weighted nasojejunal tube was placed with tip only being able to be positioned within the gastric antrum including with patient lying on his right side. Recommend patient lying on right side down to try and allow catheter to reach the duodenum by peristalsis. FLUOROSCOPY TIME: 2.1 minutes fluoroscopy time. 9 images 61.183 mGy 18.747 Gy-cm2 (mcleod-centimeter squared) FL/FL fluoroscopy <1hr IMPRESSION: Placement of weighted tip nasojejunal tube to the level of the antrum of the stomach as described.
--- NOTE | ~2022-05-17 | CT_ITS ---
EXAMINATION: CT ABDOMEN AND PELVIS WITH CONTRAST CLINICAL INFORMATION: Esophageal mass COMPARISON: CT abdomen pelvis 01/02/2022 TECHNIQUE: Multidetector volumetric images were obtained from the superior aspect of the liver through the pubic symphysis following administration 85 mL of Omnipaque 350 intravenous contrast. Sagittal and coronal reformatted images were obtained on the technologist's workstation. Oral contrast: No This CT examination was performed using dose optimization techniques as appropriate, variously including the following: *Automated exposure control *Adjustment of mA and/or kV according to patient size (this includes techniques or standardized protocols for targeted exams where dose is matched to indication/reason for exam; i.e. extremities or head) *Use of iterative reconstruction technique DLP: 571 mGy-cm FINDINGS: LUNG BASES: Some minimal tree-in-bud opacities are present at the right lung base (4:72). There is a pleural-based 6 mm nodular density in the medial left lower lobe (4:76) that was not included at the time of the prior CT abdomen. Small right-sided Bochdalek hernia containing only fat is again noted. Coronary calcium is present. LIVER, GALLBLADDER, AND BILIARY TREE: The liver is again noted to be cirrhotic with a nodular contour. No focal hepatic lesion or biliary ductal dilatation is present. Status post cholecystectomy. PANCREAS: Unremarkable. SPLEEN: Unremarkable. ADRENAL GLANDS: Unremarkable. KIDNEYS AND URETERS: The kidneys are normal in size, shape, and attenuation. There is a nonobstructing 7 mm right mid kidney stone. This stone measures 1230 Hounsfield units and is 8.7 cm from the posterior axillary line. Benign Bosniak class I and II cysts are noted on the left which need no additional follow-up or imaging. No solid renal masses. No hydronephrosis, hydroureter, or left-sided calculi seen. No perinephric stranding. BLADDER: The bladder is symmetrically thick-walled and empty GASTROINTESTINAL TRACT: There is mild thickening of the GE junction and stomach which may be due to underfilling. There is a large stool ball with dense material within it in the rectum with dense contrast also in the sigmoid which contains multiple diverticula. The remainder of the colon is unremarkable. The small bowel appears normal. The appendix is normal. ABDOMINAL WALL: No significant hernia is appreciated. A small left inguinal hernia seen containing only fat. LYMPH NODES: No retroperitoneal lymphadenopathy. 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 PELVIC VISCERA: Calcifications are present in the prostate. Seminal vesicles are unremarkable. OSSEOUS STRUCTURES: Degenerative changes are noted in the spine. No bony destructive lesions are seen. Some old healed right-sided rib fractures are present. CT/CT abdomen pelvis w IV con IMPRESSION: 1. No evidence of metastatic disease in the abdomen or pelvis. 2. Cirrhosis with portal hypertension with extensive perisplenic varices and a large left splenorenal shunt. 3. Nonobstructing 7 mm right renal stone. 4. Other incidental findings including some minimal tree-in-bud opacities in the right lung base and a 6 mm pleural-based left lower lobe nodule. Fleischner guidelines were followed.
--- NOTE | ~2022-05-17 | CT_ITS ---
EXAMINATION: CT CHEST WITH CONTRAST CLINICAL INFORMATION: Staging for esophageal mass. COMPARISON: CT abdomen pelvis 05/17/2022 TECHNIQUE: Multidetector volumetric CT imaging of the chest was obtained after the administration of 50 mL of Omnipaque 350 intravenous contrast without immediate adverse reactions. Axial MIP volume rendering provided. Sagittal and coronal reformatted images were obtained. This CT examination was performed using dose optimization techniques as appropriate, variously including the following: *Automated exposure control *Adjustment of mA and/or kV according to patient size (this includes techniques or standardized protocols for targeted exams where dose is matched to indication/reason for exam; i.e. extremities or head) *Use of iterative reconstruction technique DLP: 410 mGy-cm FINDINGS: DRAWING IN MACHINE TENDER HELPER: Well-expanded lungs. LUNGS: The lungs are well-expanded and clear of acute pneumonic process. There are no pulmonary nodules, mass or consolidation. Minimal atelectatic changes or scarring seen left lung base. MEDIASTINUM: The thyroid lobes are symmetrical. The central trachea and the bronchi widely patent. An aberrant right subclavian artery is noted. The thoracic aorta is atherosclerotic but nondilated. The heart size is normal. There are coronary artery calcifications as well as mitral valve calcification. There is a small amount of fluid-filled distal and mid esophagus. Mild annular thickening seen in the distal esophagus/GE junction. PLEURA: There is no pleural effusion. No pleural mass or thickening. AXILLA: No lymphadenopathy. UPPER ABDOMEN: Visualized liver, spleen, pancreas and bilateral adrenal glands unremarkable. There is a nonobstructive radiopaque calculus upper pole right kidney and a complex cyst upper pole left kidney. OSSEOUS STRUCTURES: No aggressive lytic or sclerotic process seen. CT/CT chest w IV con IMPRESSION: Mild dilation of mid and distal esophagus with air-fluid level, with a small annular thickening distal esophagus/GE junction. No abnormal mediastinal or axillary lymphadenopathy. There are no lung nodules seen. Fleischner guidelines were followed.
--- NOTE | ~2022-05-17 | XR_ITS ---
EXAMINATION: XR ABDOMEN KUB CLINICAL INDICATION: Feeding tube placement follow up. COMPARISON: 05/24/2022 TECHNIQUE: AP view of the abdomen. FINDINGS: Nasogastric tube is now seen with the weighted tip at the level of the distal antrum/pylorus. Contrast is seen within nondilated colon. There is diverticulosis of the distal descending and sigmoid colon. No dilated loops of large or small bowel are evident. There is osteopenia of visualized bones. There is mild scoliosis of the lumbar spine convex right. Degenerative disc disease is seen at the L5-S1 level as well as bilateral facet arthropathy. There is degenerative change of the hip joints bilaterally with significant narrowing of the inferior left hip joint. Vascular calcifications are present. XR/XR KUB IMPRESSION: Tip of nasogastric tube at the level of the pylorus.
--- NOTE | ~2022-05-17 | FL_ITS ---
PROCEDURE: XR FLUOROSCOPY CLINICAL INFORMATION: Attempted insertion of GJ tube. COMPARISON: CT abdomen pelvis 05/21/2022 TECHNIQUE: Following explaining procedure, benefits and risk to the patient, patient was placed in the right lateral decubitus view under fluoroscopy. A feeding tube with wire was advanced through both nasal cavities to the level of GE junction. There is one of several maneuvers and oral Gastrografin insertion the catheter could not be advanced beyond the GE junction likely secondary to obstruction or mass. The catheter was then subsequently removed.. Patient had significant coughing and secretions during the exam. FINDINGS: Unsuccessful insertion of GJ tube. FLUOROSCOPY TIME: 11.0 minutes DOSE AREA PRODUCT: 183.021 uGy-m2 (microgray-meter squared) FL/FL fluoroscopy <1hr IMPRESSION: A GJ tube was attempted under fluoroscopy, after 45 minutes of trying, the GJ tube could not be advanced beyond the GE junction due to obstructive lesion or narrowing.
[2022-05-17 13:51] VITALS: BP 108/54; PULSE 66; RESP 14; TEMP 37.1; O2SAT 100
[2022-05-17 13:56] VITALS: BP 108/47; BP 108/54; PULSE 68; PULSE 80; RESP 18; TEMP 37.1; O2SAT 100; O2SAT 99; BMI 21.4
--- NOTE | 2022-05-17 14:16 | ECG_ITS ---
Test Reason : weakness Blood Pressure : / mmHG Vent. Rate : 068 BPM Atrial Rate : 068 BPM P-R Int : 198 ms QRS Dur : 116 ms QT Int : 454 ms P-R-T Axes : 035 047 253 degrees QTc Int : 482 ms Normal sinus rhythm Low voltage QRS ST & T wave abnormality, consider anterolateral ischemia and inferior ischemia Abnormal ECG When compared with ECG of 07-DEC-2021 15:51, Significant changes have occurred Referred By: Salinas Rosas Electronically Signed By:BANG CA
--- NOTE | 2022-05-17 14:19 | ED.GENADULT ---
HPI - General Adult General Chief complaint: General Medical Stated complaint: VOMITING,WEIGHT LOSS Time Seen by Provider: 05/17/22 13:53 Source: patient, EMS, RN notes reviewed and old records reviewed History of Present Illness HPI narrative: Laura presents with acute on chronic vomiting. His past 5 months. He had a cholecystectomy with a diagnosis of acute on chronic cholecystitis stat time he has continued to have issues. He states it has gotten much worse over the past several days any is unable to keep down anything including liquids. He has had weight loss of over 70 lb since as started. He has lost 2 lb in the last 3 weeks or so. Last normal bowel movement last night. No blood in his emesis. He states he is unable to keep according to the half-way he an outpatient barium swallow which showed a question of an esophageal mass. She is due to have endoscopy. He was sent by the half-way to be hospitalized for IV fluids and to complete his workup. Shows recent MRI which is pending results. This is of the chest. He has not had abdominal imaging since tribes minimal epigastric pain which he states is chronic and out worsening. Related Data Home Medications Medication Instructions Recorded Confirmed atorvastatin 10 mg tablet 1 tab PO DAILY@1700 02/21/20 02/15/22 carvedilol 12.5 mg tablet 1 tab PO BID@0800,1700 02/21/20 02/15/22 citalopram 10 mg tablet 1 tab PO DAILY 02/21/20 02/15/22 citalopram 20 mg tablet 1 tab PO DAILY 02/21/20 02/15/22 furosemide 20 mg tablet 1 tab PO DAILY 02/21/20 02/15/22 hydroxyzine HCl 25 mg tablet 25 mg PO DAILY 02/21/20 02/15/22 latanoprost 0.005 % eye drops 1 drp ophthalmic-Right DAILY@1700 02/21/20 02/15/22 acetaminophen 500 mg tablet 1,000 mg PO TID@0800,1300,1700 12/07/21 02/15/22 calcium carbonate 200 mg calcium 200 mg PO TID@0800,1200,1700 12/07/21 02/15/22 (500 mg) chewable tablet (Calcium Antacid) cholecalciferol (vitamin D3) 1,250 1,250 mcg PO QMONTH 12/07/21 02/15/22 mcg (50,000 unit) capsule erythromycin 5 mg/gram (0.5 %) eye 1 appl ophthalmic-Left MOTH@0900 12/07/21 02/15/22 ointment insulin aspart U-100 100 unit/mL See Protocol subcut QIDACHS 12/07/21 02/15/22 subcutaneous solution (Novolog U-100 Insulin aspart) insulin detemir U-100 100 unit/mL 50 unit subcut BID@0730,2000 12/07/21 02/15/22 subcutaneous solution (Levemir U-100 Insulin) lisinopril 5 mg tablet 1 tab PO DAILY 12/07/21 02/15/22 melatonin 5 mg tablet 5 mg PO DAILY@1700 12/07/21 02/15/22 sucralfate 1 gram tablet 1 g PO QID 12/20/21 02/15/22 naloxone 4 mg/actuation nasal spray 1 spray intranasal Q2M 01/05/22 02/15/22 fluticasone furoate 27.5 1 spray intranasal DAILY 03/28/22 mcg/actuation nasal spray,suspension glucagon 1 mg solution for 1 mg subcut Q20M PRN 03/28/22 injection metoclopramide HCl 10 mg tablet 10 mg PO TID 03/28/22 triamcinolone acetonide 0.5 % appl topical 03/28/22 topical cream fluticasone propionate 50 spray intranasal 04/24/22 mcg/actuation nasal spray,suspension Previous Rx's Medication Instructions Recorded omeprazole 40 mg capsule,delayed 40 mg PO BID@0630,1630 #60 caps 02/25/20 release ondansetron HCl 4 mg tablet 4 mg PO Q8H PRN nausea and 02/14/22 vomiting #20 tabs colchicine 0.6 mg tablet 0.3 mg PO Q OTHER DAY #15 tabs 03/31/22 Allergies Allergy/AdvReac Type Severity Reaction Status Date / Time colchicine Allergy Unknown diarrhea Verified 05/17/22 13:56 Review of Systems Constitutional: Comments: There is. Positive weakness and malaise and weight loss Cardiovascular: Comments: No Chest pain Respiratory: Comments: No cough or dyspnea Gastrointestinal: Gastrointestinal: Reports as per HPI Musculoskeletal: Comments: No new extremity complaints. Patient is chronically wheelchair bound and nonambulatory Neurologic: Comments: General weakness. No focal weakness PMFSH Past Medical History Medical History Atrial fibrillation Blindness of left eye BPH (benign prostatic hyperplasia) CHF (congestive heart failure) COPD (chronic obstructive pulmonary disease) Diabetes Diverticulosis Gallbladder sludge GERD (gastroesophageal reflux disease) History of COVID-19 Hypothyroid Major depression Osteoarthritis Resides in long term facility 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 Strain of left knee Thrombocytopenia Surgical History History of esophagogastroduodenoscopy (EGD) Hx of colonoscopy Hx of eye surgery Family History Family History Maternal Grandmother Diabetes Mother Diabetes Social History Social History Household Members: None Housing: Correction Housing Other:: [facility] Do you presently have visiting nurse or other home services: No Alcohol intake: never Patient Tobacco Use Status: Former Tobacco user Quit Date: 10 yrs ago Tobacco use type: Cigarette Smoked in Last 30 Days: No Use of substances other than those prescribed or required for medical reasons: No Advance Directives: Yes Advance Directives on File: Yes Advance Directives Date on File: 02/20/20 service: No Current occupational status: retired Physical Exam ED Vital Signs: Vital Signs - 24 hr 05/17/22 13:51 05/17/22 13:56 05/17/22 15:11 Temperature 98.7 F 98.7 F Pulse Rate 66 68 65 Respiratory Rate 14 18 16 Blood Pressure 108/54 L 108/54 L 114/48 L Pulse Oximetry 100 99 100 Oxygen Delivery Method Room Air Room Air Room Air 05/17/22 16:00 Temperature 98.0 F Pulse Rate 98 Respiratory Rate 15 Blood Pressure 127/79 Pulse Oximetry 98 Oxygen Delivery Method Room Air BMI result Body Mass Index 21.4 Const Other: Awake and alert. No acute distress HENMT Other: Mucosa mildly dry Resp Other: Clear and equal bilaterally without Cardio Other: Regular rate and rhythm without GI Other: Soft, nontender, nondistended. Ventral hernia straining but reducible spontaneously Skin Other: Warm and pink and Dry without rash. Some tenting Neuro Other: Nonfocal Medications Administered Discontinued Medications Generic Name Dose Route Start Last Admin Trade Name Freq PRN Reason Stop Dose Admin Sodium Chloride 1,000 mls @ 999 mls/hr 05/17/22 14:15 05/17/22 16:08 Ns IV 05/17/22 15:15 Infused .Q1H1M XI Infusion Iohexol 100 ml 05/17/22 15:28 05/17/22 15:29 Iohexol 350 Mg/Ml 100 Ml Infus..Btl IV 05/17/22 15:29 85 ml ONCE ONE Administration Ondansetron HCl 4 mg 05/17/22 14:17 05/17/22 15:09 Ondansetron Hcl 4 Mg/2 Ml Vial IVPUSH 05/17/22 14:18 4 mg ONCE ONE Administration Medical Decision Making Medical Decision Making MDM Narrative: Chronic vomiting with possible esophageal mass or obstructive etiology. His vital signs are stable but his blood pressure is. Mild to moderately dehydrated clinically critically. Will do CT scan of the abdomen today. Will consult GI when results are finalized. EKG with anterolateral ST depression more pronounced than prior. Patient has no ischemic symptoms however. Possibly electrolyte and dehydration mediated. Will add on troponin. 17:32. Troponin is unremarkable. CT scan shows no obvious obstruction or mass in the abdomen or lower thoracic region. Small hiatal hernia. Case discussed with Dr. 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 Zuniga. Recommends hospitalization with IV hydration and further workup, possible G-tube, depending on further findings. Lab Data 05/17/22 14:42 05/17/22 14:42 Labs: Lab Results 05/17/22 05/17/22 05/17/22 Range/Units 14:42 14:42 14:42 WBC 6.5 (4.8-10.8) X10*3/uL RBC 4.07 L (4.60-5.80) X10*6/uL Hgb 12.4 L (14.0-18.0) g/dl Hct 36.4 L (42.0-52.0) % MCV 89.4 (80.0-98.0) fL MCH 30.5 (27.0-33.0) pg MCHC 34.1 (31.0-36.0) g/dl RDW 15.9 (11.0-16.0) % Plt Count 60 L D (160-400) X10*3/uL MPV 12.9 H (9.4-12.4) fL Immature Gran % (Auto) 0.3 (0.0-0.4) % Neut % (Auto) 67.4 (45-73) % Lymph % (Auto) 16.2 L (20-40) % [place] % (Auto) 10.9 (2-11) % Eos % (Auto) 4.3 H (0-4) % Baso % (Auto) 0.9 (0-2) % Lymph # (Auto) 1.1 L (1.2-4.9) X10*3/uL [place] # (Auto) 0.7 (0.1-1.2) X10*3/uL Eos # (Auto) 0.3 (0.0-0.4) X10*3/uL Baso # (Auto) 0.1 (0.0-0.2) X10*3/uL Abs Immat Gran (auto) 0.02 (0.00-0.03) X10*3/uL Absolute Neuts (auto) 4.4 (2.0-8.3) x10*3/uL Absolute Nucleated RBC 0.000 (0.0-0.012) X10*3/uL Nucleated RBC % (auto) 0.0 (0.0-0.2) /100WBC PT 14.7 H (10.0-13.1) SEC INR 1.3 H (0.9-1.1) Sodium 145 (135-145) mmol/L Potassium 3.1 L (3.3-5.1) mmol/L Chloride 104 (96-108) mmol/L Carbon Dioxide 27 (22-29) mmol/L Anion Gap 17 (12-20) BUN 9 (9-16) mg/dL Creatinine 0.80 (0.5-1.4) mg/dL Estim Creat Clear Calc 89.5 Estimated GFR > 60 Random Glucose 100 (60-115) mg/dL Lactic Acid (0.5-2.0) mmol/L Calcium 8.2 L (8.4-10.2) mg/dL Total Bilirubin 3.0 H (0.0-1.0) mg/dL AST 39 H (5-37) U/L ALT 19 (0-40) U/L Alkaline Phosphatase 118 H (39-117) U/L Ammonia (13-55) umol/L Troponin I High Sens (<3.5-35.0) ng/L Total Protein 6.6 (6.5-8.0) g/dL Albumin 3.7 (3.5-5.0) g/dL Lipase 19 (8-78) U/L TSH (0.32-4.0) uIU/mL Free T4 (0.71-1.85) ng/dL COVID-19 ([facility]) (Negative) COVID-19 Clin Com 05/17/22 05/17/22 05/17/22 Range/Units 14:42 14:42 14:42 WBC (4.8-10.8) X10*3/uL RBC (4.60-5.80) X10*6/uL Hgb (14.0-18.0) g/dl Hct (42.0-52.0) % MCV (80.0-98.0) fL MCH (27.0-33.0) pg MCHC (31.0-36.0) g/dl RDW (11.0-16.0) % Plt Count (160-400) X10*3/uL MPV (9.4-12.4) fL Immature Gran % (Auto) (0.0-0.4) % Neut % (Auto) (45-73) % Lymph % (Auto) (20-40) % [place] % (Auto) (2-11) % Eos % (Auto) (0-4) % Baso % (Auto) (0-2) % Lymph # (Auto) (1.2-4.9) X10*3/uL [place] # (Auto) (0.1-1.2) X10*3/uL Eos # (Auto) (0.0-0.4) X10*3/uL Baso # (Auto) (0.0-0.2) X10*3/uL Abs Immat Gran (auto) (0.00-0.03) X10*3/uL Absolute Neuts (auto) (2.0-8.3) x10*3/uL Absolute Nucleated RBC (0.0-0.012) X10*3/uL Nucleated RBC % (auto) (0.0-0.2) /100WBC PT (10.0-13.1) SEC INR (0.9-1.1) Sodium (135-145) mmol/L Potassium (3.3-5.1) mmol/L Chloride (96-108) mmol/L Carbon Dioxide (22-29) mmol/L Anion Gap (12-20) BUN (9-16) mg/dL Creatinine (0.5-1.4) mg/dL Estim Creat Clear Calc Estimated GFR Random Glucose (60-115) mg/dL Lactic Acid 1.7 (0.5-2.0) mmol/L Calcium (8.4-10.2) mg/dL Total Bilirubin (0.0-1.0) mg/dL AST (5-37) U/L ALT (0-40) U/L Alkaline Phosphatase (39-117) U/L Ammonia 22 (13-55) umol/L Troponin I High Sens (<3.5-35.0) ng/L Total Protein (6.5-8.0) g/dL Albumin (3.5-5.0) g/dL Lipase (8-78) U/L TSH (0.32-4.0) uIU/mL Free T4 (0.71-1.85) ng/dL COVID-19 ([facility]) Negative (Negative) COVID-19 Clin Com See Note 05/17/22 05/17/22 Range/Units 14:42 16:09 WBC (4.8-10.8) X10*3/uL RBC (4.60-5.80) X10*6/uL Hgb (14.0-18.0) g/dl Hct (42.0-52.0) % MCV (80.0-98.0) fL MCH (27.0-33.0) pg MCHC (31.0-36.0) g/dl RDW (11.0-16.0) % Plt Count (160-400) X10*3/uL MPV (9.4-12.4) fL Immature Gran % (Auto) (0.0-0.4) % Neut % (Auto) (45-73) % Lymph % (Auto) (20-40) % [place] % (Auto) (2-11) % Eos % (Auto) (0-4) % Baso % (Auto) (0-2) % Lymph # (Auto) (1.2-4.9) X10*3/uL [place] # (Auto) (0.1-1.2) X10*3/uL Eos # (Auto) (0.0-0.4) X10*3/uL Baso # (Auto) (0.0-0.2) X10*3/uL Abs Immat Gran (auto) (0.00-0.03) X10*3/uL Absolute Neuts (auto) (2.0-8.3) x10*3/uL Absolute Nucleated RBC (0.0-0.012) X10*3/uL Nucleated RBC % (auto) (0.0-0.2) /100WBC PT (10.0-13.1) SEC INR (0.9-1.1) Sodium (135-145) mmol/L Potassium (3.3-5.1) mmol/L Chloride (96-108) mmol/L Carbon Dioxide (22-29) mmol/L Anion Gap (12-20) BUN (9-16) mg/dL Creatinine (0.5-1.4) mg/dL Estim Creat Clear Calc Estimated GFR Random Glucose (60-115) mg/dL Lactic Acid (0.5-2.0) mmol/L Calcium (8.4-10.2) mg/dL Total Bilirubin (0.0-1.0) mg/dL AST (5-37) U/L ALT (0-40) U/L Alkaline Phosphatase (39-117) U/L Ammonia (13-55) umol/L Troponin I High Sens 8.3 (<3.5-35.0) ng/L Total Protein (6.5-8.0) g/dL Albumin (3.5-5.0) g/dL Lipase (8-78) U/L TSH 0.21 L (0.32-4.0) uIU/mL Free T4 1.05 (0.71-1.85) ng/dL COVID-19 ([facility]) (Negative) COVID-19 Clin Com Discharge Plan Discharge Patient Disposition: Admitted As Inpatient Prescriptions: No Action latanoprost 0.005 % drops 1 drp ophthalmic-Right DAILY@1700 carvedilol 12.5 mg tablet 1 tab PO BID@0800,1700 atorvastatin 10 mg tablet 1 tab PO DAILY@1700 citalopram 10 mg tablet 1 tab PO DAILY Rx Instructions: TDD = 30 MG citalopram 20 mg tablet 1 tab PO DAILY Rx Instructions: TDD = 30 MG hydroxyzine HCl 25 mg tablet 25 mg PO DAILY furosemide 20 mg tablet 1 tab PO DAILY omeprazole 40 mg Capsule,Delayed Release(Dr/Ec) 40 mg PO BID@0630,1630 Qty: 60 0RF acetaminophen 500 mg Tablet 1,000 mg PO TID@0800,1300,1700 insulin aspart U-100 [Novolog U-100 Insulin aspart] 100 unit/mL solution See Protocol subcut QIDAS Protocol: Insulin Correction Scale Less than or equal to 110 ---- Give (units): 0 111 to 150 Give (units): 0 151 to 200 Give (units): 2 201 to 250 Give (units): 4 251 to 300 Give (units): 6 301 to 350 Give (units): 8 Greater than 350 Give (units): 10 Call MD if Blood Glucose > : 350 erythromycin 5 mg/gram (0.5 %) ointment 1 appl ophthalmic-Left MOTH@0900 calcium carbonate [Calcium Antacid] 200 mg calcium (500 mg) Tablet,Chewable 200 mg PO TID@0800,1200,1700 lisinopril 5 mg tablet 1 tab PO DAILY cholecalciferol (vitamin D3) 1,250 mcg (50,000 unit) Capsule 1,250 mcg PO QMONTH Rx Instructions: TAKES ON THE 16 OF EACH MONTH melatonin 5 mg Tablet 5 mg PO DAILY@1700 Levemir U-100 Insulin 100 unit/mL solution 50 unit subcut BID@ sucralfate 1 gram tablet 1 g PO QID fluticasone furoate 27.5 mcg/actuation spray,suspension 1 spray intranasal DAILY Rx Instructions: into each nostril glucagon 1 mg recon soln 1 mg subcut Q20M PRN Rx Instructions: until target blood sugar attained metoclopramide HCl 10 mg tablet 10 mg PO TID triamcinolone acetonide 0.5 % cream topical fluticasone propionate 50 mcg/actuation spray,suspension intranasal colchicine 0.6 mg tablet 0.3 mg PO Q OTHER DAY Qty: 15 0RF naloxone 4 mg/actuation spray,non-aerosol 1 spray intranasal Q2M Rx Instructions: spray 1 dose into ONE nostril; alternate nostrils w each dose until help arrives ondansetron HCl 4 mg tablet 4 mg PO Q8H PRN (Reason: nausea and vomiting) Qty: 20 0RF
--- NOTE | 2022-05-17 14:44 | PC.NURSE ---
pt AOx3, wheelchair at baseline. equipment monitor phototypesetting intact. labs drawn, first set of blood cultures obtained, IV inserted. Tech doing EKG and drawing second set BC.
[2022-05-17 14:50] LABS: MANUAL DIFF FLAG NO
[2022-05-17 14:59] LABS: Basophils Absolute Auto 0.1 X10*3/uL (0.0-0.2); Basophils Percent Auto 0.9 % (0-2); Eosinophils Absolute Auto 0.3 X10*3/uL (0.0-0.4); Eosinophils Percent Auto 4.3 % (0-4); Hematocrit 36.4 % (42.0-52.0); Hemoglobin 12.4 g/dl (14.0-18.0); INTERNATIONAL NORM RATIO 1.3 (0.9-1.1); Imm Gran Abs Auto 0.02 X10*3/uL (0.00-0.03); Imm Gran Pct Auto 0.3 % (0.0-0.4); Lymphocytes Absolute Auto 1.1 X10*3/uL (1.2-4.9); Lymphocytes Percent Auto 16.2 % (20-40); Mean Corpuscular HGB Conc 34.1 g/dl (31.0-36.0); Mean Corpuscular Hemoglobin 30.5 pg (27.0-33.0); Mean Corpuscular Volume 89.4 fL (80.0-98.0); Mean Platelet Volume 12.9 fL (9.4-12.4); Monocytes Absolute Auto 0.7 X10*3/uL (0.1-1.2); Monocytes Percent Auto 10.9 % (2-11); Neutrophils Absolute Auto 4.4 x10*3/uL (2.0-8.3); Neutrophils Percent Auto 67.4 % (45-73); Prothrombin Time 14.7 SEC (10.0-13.1); Red Blood Count 4.07 X10*6/uL (4.60-5.80); Red Cell Distribution Width 15.9 % (11.0-16.0); White Blood Count 6.5 X10*3/uL (4.8-10.8)
[2022-05-17 15:00] LABS: Platelet Count 60 X10*3/uL (160-400)
[2022-05-17 15:01] LABS: Ammonia 22 umol/L (13-55)
[2022-05-17 15:04] LABS: Lactic Acid 1.7 mmol/L (0.5-2.0)
[2022-05-17] MEDS: 0.9 % Sodium Chloride 1,000 ML 999 ML IV (15:07)
[2022-05-17 15:09] LABS: Alanine Aminotransferase 19 U/L (0-40); Albumin Level 3.7 g/dL (3.5-5.0); Alkaline Phosphatase 118 U/L (39-117); Anion Gap 17 (12-20); Aspartate Amino Transferase 39 U/L (5-37); Blood Urea Nitrogen 9 mg/dL (9-16); COVID-19 Test Negative (Negative); Calcium 8.2 mg/dL (8.4-10.2); Carbon Dioxide 27 mmol/L (22-29); Chloride 104 mmol/L (96-108); Creatinine Clr Calc Pharmacy 89.5; Estimated Glomerular Filt Rate > 60; Glucose Random 100 mg/dL (60-115); IDNOW Serial# BCCEAD1C; Lipase 19 U/L (8-78); Potassium 3.1 mmol/L (3.3-5.1); Sodium 145 mmol/L (135-145); Total Protein 6.6 g/dL (6.5-8.0)
[2022-05-17] MEDS: ondansetron HCL 4 MG/2 ML VIAL IVPUSH (15:09)
--- NOTE | 2022-05-17 15:09 | PC.NURSE ---
fluids hanging per order, zofran given. tech in taking vitals
[2022-05-17 15:11] VITALS: BP 114/48; PULSE 65; RESP 16; O2SAT 100
[2022-05-17] MEDS: iohexoL 350 MG/ML 100 ML INFUS..BTL IV (15:29)
[2022-05-17 15:30] LABS: TSH reflex Free T4 0.21 uIU/mL (0.32-4.0)
[2022-05-17 16:00] VITALS: BP 127/79; PULSE 98; RESP 15; TEMP 36.7; O2SAT 98
[2022-05-17 16:22] LABS: Free T4 (Free Thyroxine) 1.05 ng/dL (0.71-1.85)
[2022-05-17 16:38] LABS: Troponin-I High Sensitivity 8.3 ng/L (<3.5-35.0)
--- NOTE | 2022-05-17 17:23 | PC.NURSE ---
IV fluids finished running - vitas stable, sinus tach on the monitor. pt not reporting any pain or discomfort at this time. will cont to jamie
[2022-05-17 18:00] LABS: Appearance Urine Cloudy; Color Urine Dark Yellow; Glucose Urine UA Negative (Negative); Leukocyte Esterase Urine Moderate (2+) (Negative); Nitrite Urine Positive (Negative); Specific Gravity - Urine >= 1.030 (1.005-1.025); UMIC TRIGGER UACC YES; Urine Blood Small (1+) (Negative); Urine Ketones 15 mg/dL (Negative); Urine Protein 30 (1+) mg/dL (Neg-Trace)
[2022-05-17 18:12] LABS: Bacteria Urine 1+ (None Seen); Hyaline Casts Urine 0-2 /LPF (0-2); Squamous Epithelial Cell Urine 0-2 /HPF (0-2); UACC Culture Trigger YES; WBC Urine >50 /HPF (0-5)
[2022-05-17 18:16] VITALS: BP 136/82; PULSE 96; RESP 14; TEMP 36.7; O2SAT 98
--- NOTE | 2022-05-17 18:26 | P.HPHOSP_ITS ---
History of Present Illness Date of Service: 05/17/22 Attending physician on admission: Mary Troncoso Chief Complaint: Intractable nausea vomiting 66 year old gentleman with past medical history significant for paroxysmal atrial fibrillation, congestive heart failure, BPH, COPD, insulin-dependent type 2 diabetes mellitus, hypothyroidism, depression, ITP, blindness of left eye, gout history of upper GI bleed resident of [facility] presented to [facility] due to intractable nausea vomiting of several months duration, patient has been admitted in the past with similar symptoms in November 2021 subsequently underwent cholecystectomy in January 2022, as per patient he is unable to keep food down he vomits all kind of food except able to tolerate lollipops, he denies associated abdominal pain he, no fevers, no chills, no diarrhea he has lost 70 lb since November, he feels hungry, tries to eat but throws up every time he eats, workup in the ER showed positive urinalysis, hypokalemia otherwise normal renal function, chronic thrombocytopenia, abdomen and pelvic CT showed no evidence of metastatic disease in abdomen or pelvis, cirrhosis with portal hypertension with extensive perisplenic varices, some minimal tree-in-bud opacities in the right lung base and 6 mm pleural based left lower lobe nodule, patient also noted to have large stool ball in the rectum, small left inguinal hernia containing only fat patient is being followed closely by Gastroenterology as outpatient for ongoing chronic nausea and vomiting patient be admitted to medical floor due to persistent intractable nausea vomiting, hypokalemia and significant weight loss. Patient also noted to have anterior lateral ST changes on EKG patient denies chest pain, noted to have normal troponin. Review of Systems Review of Systems: General no headache no dizziness no fever chills. CVS no chest pain, no palpitation. Respiratory no cough no sob Gastrointestinal intractable nausea vomiting Musculoskeletal no pain Yes all other systems are reviewed and are negative [facility] Medical History Atrial fibrillation Blindness of left eye BPH (benign prostatic hyperplasia) CHF (congestive heart failure) COPD (chronic obstructive pulmonary disease) Diabetes Diverticulosis Gallbladder sludge GERD (gastroesophageal reflux disease) History of COVID-19 Hypothyroid Major depression Osteoarthritis Resides in retirement facility 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 Strain of left knee Thrombocytopenia Family History Maternal Grandmother Diabetes Mother Diabetes Surgical History History of esophagogastroduodenoscopy (EGD) Hx of colonoscopy Hx of eye surgery Social History Household Members: None Household Members Other:: fpc Housing: Prison Housing Other:: [facility] Do you presently have visiting nurse or other home services: Yes Alcohol intake: never Patient Tobacco Use Status: Former Tobacco user Quit Date: 10 yrs ago Tobacco use type: Cigarette Years Smoked: quit 10 years ago Advance Directives Date on File: 02/20/20 service: No Current occupational status: retired Meds Allergies Allergy/AdvReac Type Severity Reaction Status Date / Time colchicine Allergy Unknown diarrhea Verified 05/17/22 13:56 Active Medications: Current Medications Acetaminophen (Acetaminophen Supp 650 Mg Supp.Rect) 650 mg WA Q6H PRN PRN Reason: Pain, Mild (Pain Scale 1-3) Carvedilol (Carvedilol 6.25 Mg Tablet) 6.25 mg PO BID XI; Protocol Glucose (Glucose Gel 15 Gm Gel..Gram.) 15 gm PO Q15M PRN; Protocol PRN Reason: per Hypoglycemia Standing Ord. Ceftriaxone Sodium 1 gm/ (Sodium Chloride) 50 mls @ 100 mls/hr IV ONCE ONE Stop: 05/17/22 18:45 Potassium Chloride (Potassium Chloride/H20) 10 meq in 100 mls @ 100 mls/hr IV Q1H XI Stop: 05/17/22 20:29 Dextrose (D10) 250 mls @ 750 mls/hr IV Q15M PRN; Protocol PRN Reason: per Hypoglycemia Standing Ord. Lactated Ringer's (Lr) 1,000 mls @ 50 mls/hr IVCONT .Q20H [facility] Insulin Human Lispro (Insulin Lispro 100 Unit/Ml 3 Ml Vial) 0 unit SUBCUT QIDA [facility]; Protocol Melatonin (Melatonin 3 Mg Tablet) 6 mg PO BEDTIME PRN PRN Reason: Insomnia Ondansetron HCl (Ondansetron Hcl 4 Mg/2 Ml Vial) 4 mg IVPUSH Q8H PRN PRN Reason: Nausea and Vomiting Sodium Chloride (0.9 % Sodium Chloride Flush 3 Ml Syringe) 3 ml IVFLUSH QSHIFT XI Home Medications Medication Instructions Recorded Confirmed Last Taken Type atorvastatin 10 mg tablet 1 tab PO DAILY@1700 02/21/20 05/17/22 05/16/22 History carvedilol 12.5 mg tablet 1 tab PO BID@0800,1700 02/21/20 05/17/22 05/17/22 History citalopram 10 mg tablet 1 tab PO DAILY 02/21/20 05/17/22 05/17/22 History citalopram 20 mg tablet 1 tab PO DAILY 02/21/20 05/17/22 05/17/22 History furosemide 20 mg tablet 1 tab PO DAILY 02/21/20 05/17/22 05/17/22 History hydroxyzine HCl 25 mg tablet 25 mg PO DAILY 02/21/20 05/17/22 05/16/22 History latanoprost 0.005 % eye drops 1 drp ophthalmic-Right DAILY@1700 02/21/20 3 05/15/22 History acetaminophen 500 mg tablet 1,000 mg PO TID@0800,1300,1700 12/07/21 05/17/22 History calcium carbonate 200 mg calcium 200 mg PO TID@0800,1200,1700 12/07/21 05/17/22 05/17/22 History (500 mg) chewable tablet (Calcium Antacid) cholecalciferol (vitamin D3) 1,250 1,250 mcg PO QMONTH 12/07/21 05/17/22 05/04/22 History mcg (50,000 unit) capsule erythromycin 5 mg/gram (0.5 %) eye 1 appl ophthalmic-Left MOTH@0900 12/07/21 05/17/22 05/15/22 History ointment insulin aspart U-100 100 unit/mL See Protocol subcut QIDACHS 12/07/21 05/17/22 Unknown History subcutaneous solution (Novolog U-100 Insulin aspart) insulin detemir U-100 100 unit/mL 10 unit subcut DAILY 12/07/21 05/17/22 05/16/22 History subcutaneous solution (Levemir U-100 Insulin) lisinopril 5 mg tablet 1 tab PO DAILY 12/07/21 05/17/22 05/16/22 History melatonin 5 mg tablet 5 mg PO DAILY@1700 12/07/21 05/17/22 05/15/22 History sucralfate 1 gram tablet 1 g PO QID 12/20/21 05/17/22 05/17/22 History glucagon 1 mg solution for 1 mg subcut Q20M PRN Hypoglycemia 03/28/22 05/17/22 Unknown History injection fluticasone propionate 50 2 spray intranasal DAILY 04/24/22 05/17/22 05/17/22 History mcg/actuation nasal spray,suspension magnesium oxide 400 mg PO DAILY 05/17/22 05/17/22 05/16/22 History pentoxifylline 400 mg 400 mg PO BID 05/17/22 05/17/22 05/16/22 History tablet,extended release Physical Exam Vital Signs and Narrative: Vital Signs: Last Vital Signs Temp 98.0 F 05/17/22 16:00 Pulse 98 05/17/22 16:00 Resp 15 05/17/22 16:00 BP 127/79 05/17/22 16:00 Pulse Ox 98 05/17/22 16:00 O2 Del Method Room Air 05/17/22 16:00 BMI result Body Mass Index 21.4 Const: Other: Gen: Awake alert x3, in no acute distress HEENT: L eye blind, moist mucus membranes Neck: supple, no JVD Lungs: clear to auscultation bilaterally Heart: regular rate and rhythm, no murmurs Abd: soft, nontender, bowel sounds audible, non-distended Ext: no edema Skin: warm/well-perfused Neuro: alert and oriented x3, no focal findings Psych: appropriate affect Results Labs 05/17/22 14:42 05/17/22 14:42 Labs: Laboratory Results - last 24 hr 05/17/22 05/17/22 05/17/22 14:42 14:42 14:42 MCV 89.4 MCH 30.5 MCHC 34.1 RDW 15.9 Plt Count 60 L D MPV 12.9 H Immature Gran % (Auto) 0.3 Neut % (Auto) 67.4 Lymph % (Auto) 16.2 L [place] % (Auto) 10.9 Eos % (Auto) 4.3 H Baso % (Auto) 0.9 Lymph # (Auto) 1.1 L [place] # (Auto) 0.7 Eos # (Auto) 0.3 Baso # (Auto) 0.1 Abs Immat Gran (auto) 0.02 Absolute Neuts (auto) 4.4 Absolute Nucleated RBC 0.000 Nucleated RBC % (auto) 0.0 PT 14.7 H INR 1.3 H Anion Gap 17 Estim Creat Clear Calc 89.5 Estimated GFR > 60 Random Glucose 100 Lactic Acid Calcium 8.2 L Total Bilirubin 3.0 H AST 39 H ALT 19 Alkaline Phosphatase 118 H Ammonia Troponin I High Sens Total Protein 6.6 Albumin 3.7 Lipase 19 TSH Free T4 Urine Color Urine Appearance Urine pH Ur Specific [place] Urine Protein Urine Glucose (UA) Urine Ketones Urine Blood Urine Nitrite Ur Leukocyte Esterase Urine RBC Urine WBC Ur Squamous Epith Cells Urine Bacteria Hyaline Casts COVID-19 (ARTURO) COVID-[employer] Com 05/17/22 05/17/22 05/17/22 14:42 14:42 14:42 MCV MCH MCHC RDW Plt Count MPV Immature Gran % (Auto) Neut % (Auto) Lymph % (Auto) [place] % (Auto) Eos % (Auto) Baso % (Auto) Lymph # (Auto) [place] # (Auto) Eos # (Auto) Baso # (Auto) Abs Immat Gran (auto) Absolute Neuts (auto) Absolute Nucleated RBC Nucleated RBC % (auto) PT INR Anion Gap Estim Creat Clear Calc Estimated GFR Random Glucose Lactic Acid 1.7 Calcium Total Bilirubin AST ALT Alkaline Phosphatase Ammonia 22 Troponin I High Sens Total Protein Albumin Lipase TSH Free T4 Urine Color Urine Appearance Urine pH Ur Specific [place] Urine Protein Urine Glucose (UA) Urine Ketones Urine Blood Urine Nitrite Ur Leukocyte Esterase Urine RBC Urine WBC Ur Squamous Epith Cells Urine Bacteria Hyaline Casts COVID-19 (ARTURO) Negative COVID-19 [employer] Com See Note 05/17/22 05/17/22 05/17/22 14:42 16:09 17:55 MCV MCH MCHC RDW Plt Count MPV Immature Gran % (Auto) Neut % (Auto) Lymph % (Auto) [place] % (Auto) Eos % (Auto) Baso % (Auto) Lymph # (Auto) [place] # (Auto) Eos # (Auto) Baso # (Auto) Abs Immat Gran (auto) Absolute Neuts (auto) Absolute Nucleated RBC Nucleated RBC % (auto) PT INR Anion Gap Estim Creat Clear Calc Estimated GFR Random Glucose Lactic Acid Calcium Total Bilirubin AST ALT Alkaline Phosphatase Ammonia Troponin I High Sens 8.3 Total Protein Albumin Lipase TSH 0.21 L Free T4 1.05 Urine Color Dark Yellow Urine Appearance Cloudy Urine pH 6.0 Ur Specific [place] >= 1.030 H Urine Protein 30 (1+) H Urine Glucose (UA) Negative Urine Ketones 15 Urine Blood Small (1+) H Urine Nitrite Positive H Ur Leukocyte Esterase Moderate (2+) H Urine RBC 11-20 H Urine WBC >50 H Ur Squamous Epith Cells 0-2 Urine Bacteria 1+ Hyaline Casts 0-2 COVID-19 (ARTURO) COVID-19 Clin Com Imaging Radiologist's Impressions: Impressions Abdomen/Pelvis CT 05/17/22 15:31 IMPRESSION: 1. No evidence of metastatic disease in the abdomen or pelvis. 2. Cirrhosis with portal hypertension with extensive perisplenic varices and a large left splenorenal shunt. 3. Nonobstructing 7 mm right renal stone. 4. Other incidental findings including some minimal tree-in-bud opacities in the right lung base and a 6 mm pleural-based left lower lobe nodule. Fleischner guidelines were followed. Assessment and Plan (1) Unintentional weight loss: Status: Acute (2) Vomiting: Status: Acute Plan 66yo M long-term resident of [facility] with paroxysmal AF not on AC due to hx upper GI, CHF, BPH, COPD, DM2, GERD, hypothyroidism, depression, ITP, PAD, L eye blindness, gout presenting with ongoing nausea vomiting of several months duration noted to have mild hypokalemia and anterior lateral ST changes. # Intractable nausea vomiting of several months duration associated with weight loss IV fluids, clear liquid diet, IV antiemetics Obtained GI consultation for possible upper endoscopies/barium follow-through # hypokalemia replete follow labs # hypocalcemia continue Ca replacement # constipation will add stool softeners # DM2 stable blood sugars, decreased by mouth intake, place on insulin sliding scale, hold basal insulin. # HTN - soft blood pressures will place on Coreg 6.25 mg b.i.d. follow blood pressures # pAF Placed on low-dose Coreg 6.25 mg b.i.d. home dose Coreg 12.5 mg b.i.d. - not on AC due to GI bleeding in past # CHF unspecified no acute exacerbation hold Lasix # HLD hold statins follow lipid profile # depression continue escitalopram, on 30 mg by mouth daily will reduce to 20 mg daily # chronic normocytic anemia-stable # ITP - platelets low but stable- monitor # GERD - continue PPI + hold sucralfate # PAD hold pentoxifylline # VTE ppx: Compression boots In my clinical judgment, the patient requires 2 night inpatient hospitalization for further workup for intractable nausea vomiting requiring IV fluids and IV antiemetics Time Spent With Patient Time: Total time managing care of this patient today ____ minutes. Quality Stroke Does the patient have a stroke diagnosis?: No VTE Prior VTE?: No VTE Risk Level:: Medical - moderate - high VTE Device Contraindication: N/A - Device Ordered VTE Drug Contraindication: Treatment Not Indicated
--- NOTE | 2022-05-17 18:36 | PC.NURSE ---
reddened area of skin noted above buttocks when changing pts bed linens
[2022-05-17] MEDS: cefTRIAXone sodium 1 GM in 0.9 % Sodium Chloride 50 ML IV (18:41)
--- NOTE | 2022-05-17 18:41 | PC.NURSE ---
IV abx hung per order. waiting on hanging LR until ABX has finished
--- NOTE | 2022-05-17 19:09 | PHA.MEDREC ---
Pharmacy Consult ? Medication Reconciliation Pharmacy has completed the medication reconciliation.
[2022-05-17] MEDS: Potassium Chloride/H20 10 MEQ/100 ML PIGGYBACK 100 MEQ IV ×2 (19:41→20:48)
[2022-05-17] MEDS: Lactated Ringers 1,000 ML 50 ML IVCONT (19:41)
--- NOTE | 2022-05-17 20:50 | PC.NURSE ---
second bag of potassium chloride hung at this time. this rn went to pull second bag from pyxis. pyxis not showing available to pull. this rn went to all orders. able to pull up order for potassium chloride and obtain from pyxis this way. this rn made bellows charger assembler aware. pt medicated according to mar
[2022-05-17 23:46] LABS: Glucose, Whole Blood 100 mg/dL (60-115)
[2022-05-17 23:57] VITALS: BP 134/72; PULSE 79; RESP 18; TEMP 36.7; O2SAT 98
--- NOTE | 2022-05-17 23:58 | PC.NURSE ---
this rn entered pt room to check vs. VSS pt refused carvedilol. BP at this time 134/[address] white aware of bp and pt refusal. no new orders at this time
[2022-05-18] VITALS (8 sets, daily range): BP systolic 100–144; BP diastolic 42–74; PULSE 63–84; RESP 14–20; TEMP 36.1–37.2; O2SAT 97–100; BMI 21.9
--- NOTE | 2022-05-18 06:17 | PC.NURSE ---
0500 Admit, from ED report given by Velia RN, pt refusing Hi fall risk socks, Pt refusing bed alarm ,and camera , this RN told patient camera is necessary although he likes to sit on the side of the bed , VMT room aware , JESSICA Johnston aware.
[2022-05-18 08:16] LABS: Glucose, Whole Blood 101 mg/dL (60-115)
--- NOTE | 2022-05-18 10:12 | P.CONAN_ITS ---
HPI - Anesthesia Eval Consult details Narrative: weight loss PMFSH Active Problems Active Problems: All Active Problems (Updated 05/17/22 @ 17:33 by Salinas Rosas MD) Vomiting (Acute) Unintentional weight loss (Acute) Hypocalcemia (Acute) Gout (Acute) Vasculitis (Acute) Cirrhosis (Acute) Dysphagia (Acute) Small vessel vasculitis (Acute) S/P cholecystectomy (Acute) Chronic kidney disease (Acute) Cardiomyopathy (Acute) Abdominal hernia (Acute) Anemia (Acute) Transaminitis (Acute) Hypoglycemia (Acute) Gallbladder sludge (Acute) Osteoarthritis (Acute) Major depression (Acute) Hypothyroid (Acute) COPD (chronic obstructive pulmonary disease) (Acute) CHF (congestive heart failure) (Acute) BPH (benign prostatic hyperplasia) (Acute) Blindness of left eye (Acute) Past Medical History Medical History Atrial fibrillation Blindness of left eye BPH (benign prostatic hyperplasia) CHF (congestive heart failure) COPD (chronic obstructive pulmonary disease) Diabetes Diverticulosis Gallbladder sludge GERD (gastroesophageal reflux disease) History of COVID-19 Hypothyroid Major depression Osteoarthritis Resides in detention facility 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 Strain of left knee Thrombocytopenia Family History Family History Maternal Grandmother Diabetes Mother Diabetes Family history of problems with anesthesia: No Surgical History Surgical History History of esophagogastroduodenoscopy (EGD) Hx of colonoscopy Hx of eye surgery History of Problems with Anesthesia: Yes (PONV) Social History Social History Household Members: None Household Members Other:: custodial Housing: [facility] Housing Other:: [facility] Do you presently have visiting nurse or other home services: Yes Alcohol intake: never Patient Tobacco Use Status: Former Tobacco user Quit Date: 10 yrs ago Tobacco use type: Cigarette Years Smoked: quit 10 years ago Smoked in Last 30 Days: No Use of substances other than those prescribed or required for medical reasons: No Have you been hit, kicked, punched, or otherwise hurt by someone within the past year? If so, by whom?: No Do you feel safe in your current relationship?: No Current Relationship Is there a partner from a previous relationship who is making you feel unsafe now?: No Are you DNR?: Yes Advance Directives: Yes Advance Directives on File: Yes Advance Directives Date on File: 02/20/20 Do you have thoughts of harming others: None Do you have a plan to hurt others: No Plan Recently lost weight without trying: Unsure How much weight loss: 14-23 pounds Eating poorly because of decreased appetite: Yes Nutrition screen score: 5 Nutrition Risks: Acute nausea or vomiting x1 week service: No Current occupational status: retired [employer] Allergies Allergy/AdvReac Type Severity Reaction Status Date / Time colchicine Allergy Unknown diarrhea Verified 05/17/22 13:56 Active Medications: Current Medications Acetaminophen (Acetaminophen Supp 650 Mg Supp.Rect) 650 mg [place] Q6H PRN PRN Reason: Pain, Mild (Pain Scale 1-3) Carvedilol (Carvedilol 6.25 Mg Tablet) 6.25 mg PO BID [facility]; Protocol Last Admin: 05/18/22 08:35 Dose: Not Given Glucose (Glucose Gel 15 Gm Gel..Gram.) 15 gm PO Q15M PRN; Protocol PRN Reason: per Hypoglycemia Standing Ord. Dextrose (D10) 250 mls @ 750 mls/hr IV Q15M PRN; Protocol PRN Reason: per Hypoglycemia Standing Ord. Lactated Ringer's (Lr) 1,000 mls @ 50 mls/hr IVCONT .Q20H [facility] Last Admin: 05/17/22 19:41 Dose: 50 mls/hr Insulin Human Lispro (Insulin Lispro 100 Unit/Ml 3 Ml Vial) 0 unit SUBCUT QIDACHS [facility]; Protocol Last Admin: 05/18/22 08:19 Dose: Not Given Melatonin (Melatonin 3 Mg Tablet) 6 mg PO BEDTIME PRN PRN Reason: Insomnia Ondansetron HCl (Ondansetron Hcl 4 Mg/2 Ml Vial) 4 mg IVPUSH Q8H PRN PRN Reason: Nausea and Vomiting Sodium Chloride (0.9 % Sodium Chloride Flush 3 Ml Syringe) [facility] Last Admin: 05/18/22 08:19 Dose: Not Given Home Medications Medication Instructions Recorded Confirmed Last Taken Type atorvastatin 10 mg tablet 1 tab PO DAILY@1700 02/21/20 05/17/22 05/16/22 History carvedilol 12.5 mg tablet 1 tab PO BID@0800,1700 02/21/20 05/17/22 05/17/22 History citalopram 10 mg tablet 1 tab PO DAILY 02/21/20 05/17/22 05/17/22 History citalopram 20 mg tablet 1 tab PO DAILY 02/21/20 05/17/22 05/17/22 History furosemide 20 mg tablet 1 tab PO DAILY 02/21/20 05/17/22 05/17/22 History hydroxyzine HCl 25 mg tablet 25 mg PO DAILY 02/21/20 05/17/22 05/16/22 History latanoprost 0.005 % eye drops 1 drp ophthalmic-Right DAILY@1700 02/21/20 05/17/22 05/15/22 History acetaminophen 500 mg tablet 1,000 mg PO TID@0800,1300,1700 12/07/21 05/17/22 05/16/22 History calcium carbonate 200 mg calcium 200 mg PO TID@0800,1200,1700 12/07/21 05/17/22 05/17/22 History (500 mg) chewable tablet (Calcium Antacid) cholecalciferol (vitamin D3) 1,250 1,250 mcg PO QMONTH 12/07/21 05/17/22 05/04/22 History mcg (50,000 unit) capsule erythromycin 5 mg/gram (0.5 %) eye 1 appl ophthalmic-Left MOTH@0900 12/07/21 05/17/22 05/15/22 History ointment insulin aspart U-100 100 unit/mL See Protocol subcut QIDACHS 12/07/21 05/17/22 Unknown History subcutaneous solution (Novolog U-100 Insulin aspart) insulin detemir U-100 100 unit/mL 10 unit subcut DAILY 12/07/21 05/17/22 05/16/22 History subcutaneous solution (Levemir U-100 Insulin) lisinopril 5 mg tablet 1 tab PO DAILY 12/07/21 05/17/22 05/16/22 History melatonin 5 mg tablet 5 mg PO DAILY@1700 12/07/21 05/17/22 05/15/22 History sucralfate 1 gram tablet 1 g PO QID 12/20/21 05/17/2205/17/23 History glucagon 1 mg solution for 1 mg subcut Q20M PRN Hypoglycemia 03/28/22 05/17/22 Unknown History injection fluticasone propionate 50 2 spray intranasal DAILY 04/24/22 05/17/22 05/17/22 History mcg/actuation nasal spray,suspension magnesium oxide 400 mg PO DAILY 05/17/22 05/17/22 05/16/22 History pentoxifylline 400 mg 400 mg PO BID 05/17/22 05/17/22 05/16/22 History tablet,extended release Exam Exam Date and Time: May 18, 2022 1012 Height,Weight and Vital Signs: Height 6 ft Weight 73.3 kg Last Vital Signs Temp 97.5 F 05/18/22 08:08 Pulse 63 05/18/22 08:08 Resp 14 05/18/22 08:08 BP 103/42 L 05/18/22 08:08 Pulse Ox 100 05/18/22 08:08 O2 Del Method Room Air 05/18/22 08:08 Pertinent Lab Results Pertinent Lab Results: Laboratory Tests 05/17/22 05/17/22 05/17/22 14:42 14:42 14:42 WBC 6.5 RBC 4.07 L Hgb 12.4 L Hct 36.4 L MCV 89.4 MCH 30.5 MCHC 34.1 RDW 15.9 Plt Count 60 L D MPV 12.9 H Immature Gran % (Auto) 0.3 Neut % (Auto) 67.4 Lymph % (Auto) 16.2 L [place] % (Auto) 10.9 Eos % (Auto) 4.3 H Baso % (Auto) 0.9 Lymph # (Auto) 1.1 L [place] # (Auto) 0.7 Eos # (Auto) 0.3 Baso # (Auto) 0.1 Abs Immat Gran (auto) 0.02 Absolute Neuts (auto) 4.4 Absolute Nucleated RBC 0.000 Nucleated RBC % (auto) 0.0 PT 14.7 H INR 1.3 H Sodium 145 Potassium 3.1 L Chloride 104 Carbon Dioxide 27 Anion Gap 17 BUN 9 Creatinine 0.80 Estim Creat Clear Calc 89.5 Estimated GFR > 60 POC Glucose Random Glucose 100 Lactic Acid Calcium 8.2 L Total Bilirubin 3.0 H AST 39 H ALT 19 Alkaline Phosphatase 118 H Ammonia Troponin I High Sens Total Protein 6.6 Albumin 3.7 Lipase 19 TSH Free T4 Urine Color Urine Appearance Urine pH Ur Specific [place] Urine Protein Urine Glucose (UA) Urine Ketones Urine Blood Urine Nitrite Ur Leukocyte Esterase Urine RBC Urine WBC Ur Squamous Epith Cells Urine Bacteria Hyaline Casts COVID-19 ([facility]) COVID-19 Clin Com 05/17/22 05/17/22 05/17/22 14:42 14:42 14:42 WBC RBC Hgb Hct MCV MCH MCHC RDW Plt Count MPV Immature Gran % (Auto) Neut % (Auto) Lymph % (Auto) [place] % (Auto) Eos % (Auto) Baso % (Auto) Lymph # (Auto) [place] # (Auto) Eos # (Auto) Baso # (Auto) Abs Immat Gran (auto) Absolute Neuts (auto) Absolute Nucleated RBC Nucleated RBC % (auto) PT INR Sodium Potassium Chloride Carbon Dioxide Anion Gap BUN Creatinine Estim Creat Clear Calc Estimated GFR POC Glucose Random Glucose Lactic Acid 1.7 Calcium Total Bilirubin AST ALT Alkaline Phosphatase Ammonia 22 Troponin I High Sens Total Protein Albumin Lipase TSH Free T4 Urine Color Urine Appearance Urine pH Ur Specific [place] Urine Protein Urine Glucose (UA) Urine Ketones Urine Blood Urine Nitrite Ur Leukocyte Esterase Urine RBC Urine WBC Ur Squamous Epith Cells Urine Bacteria Hyaline Casts COVID-19 ([facility]) Negative COVID-19 Clin Com See Note 05/17/22 05/17/22 05/17/22 14:42 16:09 17:55 WBC RBC Hgb Hct MCV MCH MCHC RDW Plt Count MPV Immature Gran % (Auto) Neut % (Auto) Lymph % (Auto) [place] % (Auto) Eos % (Auto) Baso % (Auto) Lymph # (Auto) [place] # (Auto) Eos # (Auto) Baso # (Auto) Abs Immat Gran (auto) Absolute Neuts (auto) Absolute Nucleated RBC Nucleated RBC % (auto) PT INR Sodium Potassium Chloride Carbon Dioxide Anion Gap BUN Creatinine Estim Creat Clear Calc Estimated GFR POC Glucose Random Glucose Lactic Acid Calcium Total Bilirubin AST ALT Alkaline Phosphatase Ammonia Troponin I High Sens 8.3 Total Protein Albumin Lipase TSH 0.21 L Free T4 1.05 Urine Color Dark Yellow Urine Appearance Cloudy Urine pH 6.0 Ur Specific [place] >= 1.030 H Urine Protein 30 (1+) H Urine Glucose (UA) Negative Urine Ketones 15 Urine Blood Small (1+) H Urine Nitrite Positive H Ur Leukocyte Esterase Moderate (2+) H Urine RBC 11-20 H Urine WBC >50 H Ur Squamous Epith Cells 0-2 Urine Bacteria 1+ Hyaline Casts 0-2 COVID-19 ([facility]) COVID-19 [employer] Com 05/17/22 05/18/22 23:42 08:00 WBC RBC Hgb Hct MCV MCH MCHC RDW Plt Count MPV Immature Gran % (Auto) Neut % (Auto) Lymph % (Auto) [place] % (Auto) Eos % (Auto) Baso % (Auto) Lymph # (Auto) [place] # (Auto) Eos # (Auto) Baso # (Auto) Abs Immat Gran (auto) Absolute Neuts (auto) Absolute Nucleated RBC Nucleated RBC % (auto) PT INR Sodium Potassium Chloride Carbon Dioxide Anion Gap BUN Creatinine Estim Creat Clear Calc Estimated GFR POC Glucose 100 101 Random Glucose Lactic Acid Calcium Total Bilirubin AST ALT Alkaline Phosphatase Ammonia Troponin I High Sens Total Protein Albumin Lipase TSH Free T4 Urine Color Urine Appearance Urine pH Ur Specific [place] Urine Protein Urine Glucose (UA) Urine Ketones Urine Blood Urine Nitrite Ur Leukocyte Esterase Urine RBC Urine WBC Ur Squamous Epith Cells Urine Bacteria Hyaline Casts COVID-19 ([facility]) COVID-19 Clin Com Airway Mallampati Class: II TM Dist: >3cm Neck ROM: Full Denture: Upper and Lower Heart: rr Lungs: cta Assessment and Plan Assessment Anesthesia Assessment: Anesthesia Plan Discussed and Chart Reviewed Final Anesthetic Review Family History of Problems with Anesthesia: No History of Problems with Anesthesia: Yes (PONV) NPO: Yes ASA Class: III Final Preanesthetic Review: No Changes in Pt Med Stat, Meds/Allgs Chart Reviewed, Consent Obtained/Reviewed and Anes Risks/Benef Reviewed Patient Risk: Intermediate Procedure Risk: Low Anesthetic Plan Anesthetic Plan: MAC: Disposition: Standard PACU
[2022-05-18 10:32] LABS: Glucose, Whole Blood 97 mg/dL (60-115)
--- NOTE | 2022-05-18 10:34 | PM.GICN ---
History of Present Illness Data of Consult Service Date: 05/18/22 Requesting physician: Mary Troncoso Primary Care Provider: Unknown Physician HPI Reason for consult: Nausea, vomiting This is a 66-year-old gentleman with past medical history of atrial fibrillation not on anticoagulation, congestive heart failure, anemia, diabetes, GERD, COPD, retinal detachment with left eye blindness, who was sent to the hospital by his facility for inability to tolerate PO x 2-3 days including meds. Patients symptoms initially started around Nov 2021 and were initially attributed to biliary colic s/p CCY. Since his surgery, he notes that he has been having difficulty swallowing the food and keeping it down.? Sometimes, food gets stuck and is regurgitated.? Also notices thick phlegm with this.? When the food does go down, he is not nauseous and does not vomit.? This happens with most of the textures of food, but liquids have an easier time. Patient is established with GI as outpatient as well and was undergoing work up for dysphagia, nausea and vomiting with plan for outpatient EGD. However in the last few days he has not been able to tolerate even his meds which prompted his visit to the ER. He does not report any abd pain, fevers, chills. No blood in emesis or stool. Does report loss of appetite and has had significant weight loss over the last few months as previously documented. Other pertinent hx includes new diagnosis of cirrhosis likely from fatty liver however undergoing work up for vasculitis through Rheum given path report on gallbladder showing granulomas, intestinal metaplasia, and vasculitis of small and medium vessels in mural and pericholecystic soft tissue. Review of Systems Review of Systems: Yes all other systems are reviewed and are negative [facility] Past Medical History Medical History Atrial fibrillation Blindness of left eye BPH (benign prostatic hyperplasia) CHF (congestive heart failure) COPD (chronic obstructive pulmonary disease) Diabetes Diverticulosis Gallbladder sludge GERD (gastroesophageal reflux disease) History of COVID-19 Hypothyroid Major depression Osteoarthritis Resides in assisted facility 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 Strain of left knee Thrombocytopenia Family History Family History Maternal Grandmother Diabetes Mother Diabetes Surgical History Surgical History History of esophagogastroduodenoscopy (EGD) Hx of colonoscopy Hx of eye surgery Social History Social History Household Members: None Household Members Other:: custodial Housing: Custodial Housing Other:: [facility] Do you presently have visiting nurse or other home services: Yes Alcohol intake: never Patient Tobacco Use Status: Former Tobacco user Quit Date: 10 yrs ago Tobacco use type: Cigarette Years Smoked: quit 10 years ago Smoked in Last 30 Days: No Use of substances other than those prescribed or required for medical reasons: No Have you been hit, kicked, punched, or otherwise hurt by someone within the past year? If so, by whom?: No Do you feel safe in your current relationship?: No Current Relationship Is there a partner from a previous relationship who is making you feel unsafe now?: No Are you DNR?: Yes Advance Directives: Yes Advance Directives on File: Yes Advance Directives Date on File: 02/20/20 Do you have thoughts of harming others: None Do you have a plan to hurt others: No Plan Recently lost weight without trying: Unsure How much weight loss: 14-23 pounds Eating poorly because of decreased appetite: Yes Nutrition screen score: 5 Nutrition Risks: Acute nausea or vomiting x1 week service: No Current occupational status: retired Meds Allergies Allergy/AdvReac Type Severity Reaction Status Date / Time colchicine Allergy Unknown diarrhea Verified 05/17/22 13:56 Active Medications: Current Medications Acetaminophen (Acetaminophen Supp 650 Mg Supp.Rect) 650 mg [place] Q6H PRN PRN Reason: Pain, Mild (Pain Scale 1-3) Carvedilol (Carvedilol 6.25 Mg Tablet) 6.25 mg PO BID [facility]; Protocol Last Admin: 05/18/22 08:35 Dose: Not Given Colchicine (Colchicine 0.6 Mg Tablet) 0.3 mg PO Q OTHER DAY XI Erythromycin (Erythromycin Base 0.5% Oph Oin 1 Gm Tube) cm EYE-LEFT MOTH@0900 [facility] Fluticasone Propionate (Fluticasone Propionate Nasal 16 Gm [place]) 2 spray NOSTRIL-B DAILY [facility] Glucose (Glucose Gel 15 Gm Gel..Gram.) 15 gm PO Q15M PRN; Protocol PRN Reason: per Hypoglycemia Standing Ord. Dextrose (D10) 250 mls @ 750 mls/hr IV Q15M PRN; Protocol PRN Reason: per Hypoglycemia Standing Ord. Lactated Ringer's (Lr) 1,000 mls @ 50 mls/hr IVCONT .Q20H [facility] Last Admin: 05/17/22 19:41 Dose: 50 mls/hr Insulin Human Lispro (Insulin Lispro 100 Unit/Ml 3 Ml Vial) 0 unit SUBCUT QIDACHS [facility]; Protocol Last Admin: 05/18/22 08:19 Dose: Not Given Latanoprost (Latanoprost 0.005 % Ophth Kathy 2.5 Ml Drops) 1 drop EYE-RIGHT DAILY@1700 [facility] Magnesium Oxide (Magnesium Oxide 400 Mg Tablet) 400 mg PO DAILY [facility] Melatonin (Melatonin 3 Mg Tablet) 6 mg PO BEDTIME PRN PRN Reason: Insomnia Non-Formulary Medication (Citalopram) 1 tab PO DAILY [facility] Omeprazole (Omeprazole 40 Mg Capsule.Dr) 40 mg PO BID@0630,1630 [facility] Ondansetron HCl (Ondansetron Hcl 4 Mg/2 Ml Vial) 4 mg IVPUSH Q8H PRN PRN Reason: Nausea and Vomiting Sodium Chloride (0.9 % Sodium Chloride Flush 3 Ml Syringe) 3 ml IVFLUSH QSHIFT [facility] Last Admin: 05/18/22 08:19 Dose: Not Given Home Medications Medication Instructions Recorded Confirmed Last Taken Type atorvastatin 10 mg tablet 1 tab PO DAILY@1700 02/21/20 05/17/22 05/16/22 History carvedilol 12.5 mg tablet 1 tab PO BID@0800,1700 02/21/20 05/17/22 05/17/22 History citalopram 10 mg tablet 1 tab PO DAILY 02/21/20 05/17/22 05/17/22 History citalopram 20 mg tablet 1 tab PO DAILY 02/21/20 05/17/22 05/17/22 History furosemide 20 mg tablet 1 tab PO DAILY 02/21/20 05/17/22 05/17/22 History hydroxyzine HCl 25 mg tablet 25 mg PO DAILY 02/21/20 05/17/22 05/16/22 History latanoprost 0.005 % eye drops 1 drp ophthalmic-Right DAILY@1700 02/21/20 05/17/2205/15/23 History acetaminophen 500 mg tablet 1,000 mg PO TID@0800,1300,1700 12/07/21 05/17/22 05/16/22 History calcium carbonate 200 mg calcium 200 mg PO TID@0800,1200,1700 12/07/21 05/17/22 05/17/22 History (500 mg) chewable tablet (Calcium Antacid) cholecalciferol (vitamin D3) 1,250 1,250 mcg PO QMONTH 12/07/21 05/17/22 05/04/22 History mcg (50,000 unit) capsule erythromycin 5 mg/gram (0.5 %) eye 1 appl ophthalmic-Left MOTH@0900 12/07/21 05/17/22 05/15/22 History ointment insulin aspart U-100 100 unit/mL See Protocol subcut QIDACHS 12/07/21 05/17/22 Unknown History subcutaneous solution (Novolog U-100 Insulin aspart) insulin detemir U-100 100 unit/mL 10 unit subcut DAILY 12/07/21 05/17/22 05/16/22 History subcutaneous solution (Levemir U-100 Insulin) lisinopril 5 mg tablet 1 tab PO DAILY 12/07/21 05/17/22 05/16/22 History melatonin 5 mg tablet 5 mg PO DAILY@1700 12/07/21 05/17/22 05/15/22 History sucralfate 1 gram tablet 1 g PO QID 12/20/21 05/17/22 05/17/22 History glucagon 1 mg solution for 1 mg subcut Q20M PRN Hypoglycemia 03/28/22 05/17/22 Unknown History injection fluticasone propionate 50 2 spray intranasal DAILY 04/24/22 05/17/22 05/17/22 History mcg/actuation nasal spray,suspension magnesium oxide 400 mg PO DAILY 05/17/22 05/17/22 05/16/22 History pentoxifylline 400 mg 400 mg PO BID 05/17/22 05/17/22 05/16/22 History tablet,extended release Physical Exam Vital Signs: Vital Signs: Last Vital Signs Temp 97.0 F 05/18/22 10:23 Pulse 66 05/18/22 10:23 Resp 18 05/18/22 10:23 BP 126/62 05/18/22 10:23 Pulse Ox 98 05/18/22 10:23 O2 Del Method Room Air 05/18/22 10:23 BMI result Body Mass Index 21.9 Gen appear: Undernourished, frail appearing gent HEENT: L eye with opacity Chest: No overt resp distress CVS: S1/S2, regular Abd: soft, nontender, nondistended Psych: Stable affect Neuro: A/Ox3 able to move all his extremities but has diffuse weakness in legs Ext: peripheral edema Results Labs 05/17/22 14:42 05/17/22 14:42 Labs: Short CBC 05/17/22 Range/Units 14:42 WBC 6.5 (4.8-10.8) X10*3/uL Hgb 12.4 L (14.0-18.0) g/dl Hct 36.4 L (42.0-52.0) % Plt Count 60 L D (160-400) X10*3/uL BMP 05/17/22 14:42 Sodium 145 Potassium 3.1 L Chloride 104 Carbon Dioxide 27 BUN 9 Creatinine 0.80 Calcium 8.2 L Liver Function 05/17/22 Range/Units 14:42 Total Bilirubin 3.0 H (0.0-1.0) mg/dL AST 39 H (5-37) U/L ALT 19 (0-40) U/L Alkaline Phosphatase 118 H (39-117) U/L Albumin 3.7 (3.5-5.0) g/dL Urine 05/17/22 Range/Units 17:55 Urine Color Dark Yellow Urine Appearance Cloudy Urine pH 6.0 (5.0-9.0) Ur Specific [place] >= 1.030 H (1.005-1.025) Urine Protein 30 (1+) H (Neg-Trace) mg/dL Urine Glucose (UA) Negative (Negative) mg/dL Microbiology Microbiology Results: Microbiology 05/17/22 18:14 Urine clean catch - Urine [facility] Urine Culture - Preliminary Gram positive cocci Imaging CT scan - abdomen: Radiologist's impression: There is mild thickening of the GE junction and stomach which may be due to underfilling. There is a large stool ball with dense material within it in the rectum with dense contrast also in the sigmoid which contains multiple diverticula. The remainder of the colon is unremarkable. The small bowel appears normal. The appendix isnormal.? ABDOMINAL WALL: No significant hernia is appreciated. A small left inguinal hernia seen containing only fat. LYMPH NODES: No retroperitoneal lymphadenopathy. 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 Assessment and Plan (1) Vomiting: Status: Acute (2) Unintentional weight loss: Status: Acute (3) Dysphagia: Status: Acute (4) Cirrhosis: Status: Acute Plan Ddx include esophageal stricture/web, mass, esophagitis, GOO. We will schedule him for an upper endoscopy today. This will also serve to evaluate for varices given history of cirrhosis. Plan: - Please keep the pt NPO - Switch PPI to IV - Further recommendations to follow in the procedure note. Thank you for allowing me to participate in his care. Please do not hesitate to reach out for any questions or concerns. Time Spent With Patient Time: Total time managing care of this patient today ____ minutes. Procedures Date of Service Date of Service: 05/18/22
--- NOTE | 2022-05-18 11:08 | P.OP_ITS ---
Operative Note Operative Note Date of Service: 05/18/22 Narrative: Procedure: Esophagogastroduodenoscopy Endoscopist: Bina Zuniga MD Indication: Dysphagia, N,V Anesthesia Provider: Karol Vazquez CRNA Anesthesia Type: MAC ?? EGD Procedure:?? The procedure, indications, preparation and potential complications were reviewed with the patient, who indicated understanding and gave written informed consent to proceed. A physical exam was performed. The endoscope was introduced through the mouth, and advanced to the second part of duodenum. The mucosa was carefully examined on slow withdrawal of the endoscope. The patient tolerated the procedure well. There were no immediate complications.? ? EGD Findings:? * Esophagus:?Upper esophagus was mildly dilated and fluid was suctioned out. At the GEJ, there was a mass that appeared to arise out of the esophagus at 39 cm and prolapsing down into the cardia. The lumen was nearly completely obstructed due to this. Scope was traversed past this with some difficulty. * Stomach:? Scant heme was noted in the body. There was a small gastric polyp along the greater curvature. This was removed with forceps biopsy. On retroflexion, the mass was noted prolapsing into the cardia along the lesser curvature almost 2-3 cm in size, spontaneously bleeding. Multiple cold forceps biopsies were taken. Hemospray was applied towards the end for hemostasis. * Duodenum:? Normal mucosa was noted in the whole of the examined duodenum. Biopsies were taken from duodenal bulb and second portion of the duodenum. ? EGD Impressions:? * Obstructing GEJ mass (biopsy) (Hemospray) * Gastric polyp (biopsy) * Normal duodenum (biopsy) ?? Recommendations:?? * Follow biopsy results. * Continue PPI therapy. * Pt's HCP Joyce reports he had a Barium swallow last week, she will call with the name of the facility where it was done * Will need to review options for nutrition, esophageal stent vs G tube with the patient and HCP. Please start Ensure clear shakes. Above has been reviewed with the patient and his HCP Joyce
--- NOTE | 2022-05-18 12:09 | MHC.CM.PN ---
CM spoke with HCP/Jone @ [phone] and addressed IMM with him (original will be mailed certified letter to Jone and a copy has been placed on the chart). Patient is a LTC Resident at [facility] and returning there is the goal. LANETTE has initiated and will follow for dc planning.
--- NOTE | 2022-05-18 12:17 | P.PNIM_ITS ---
Subjective Subjective Date of Service: 05/18/22 Interval History: continue to have nausea and vomiting with liquid diet, denies abdominal pain, no fevers, no chills , complaining of postnasal drip,no other acute issues since admission. seen by GI and made NPO for endoscopy Review of Systems Review of Systems: Yes all other systems are reviewed and are negative Physical Exam Vital Signs: Vital Signs: Last Vital Signs Temp 97.3 F 05/18/22 11:42 Pulse 73 05/18/22 11:42 Resp 16 05/18/22 11:42 BP 111/64 05/18/22 11:42 Pulse Ox 98 05/18/22 11:42 O2 Del Method Room Air 05/18/22 11:42 O2 Flow Rate 6 05/18/22 11:15 BMI result Body Mass Index 21.9 Const: Other: Gen:? Awake alert x3, in no acute distress HEENT: L eye blind, moist mucus membranes Neck: supple, no JVD Lungs: clear to auscultation bilaterally, no wheeze no crackles Heart: regular rate and rhythm, no murmurs Abd: soft, nontender, bowel sounds audible, non-distended Ext: no edema Skin: warm/well-perfused Neuro: alert and oriented x3, no focal findings Psych: appropriate affect Objective Data Active Medications Acetaminophen (Acetaminophen Supp 650 Mg Supp.Rect) 650 mg [place] Q6H PRN PRN Reason: Pain, Mild (Pain Scale 1-3) Carvedilol (Carvedilol 6.25 Mg Tablet) 6.25 mg PO BID [facility]; Protocol Last Admin: 05/18/22 08:35 Dose: Not Given Documented By: JOSE MANUEL Non-Admin Reason: Patient Refused Colchicine (Colchicine 0.6 Mg Tablet) 0.3 mg PO Q48H [facility] Last Admin: 05/18/22 10:45 Dose: Not Given Documented By: JOSE MANUEL Non-Admin Reason: Physician Held Med Erythromycin (Erythromycin Base 0.5% Oph Oin 1 Gm Tube) 0.25 cm EYE-LEFT MOTH@0900 [facility] Escitalopram Oxalate (Escitalopram Oxalate 10 Mg Tablet) 10 mg PO DAILY [facility] Fluticasone Propionate (Fluticasone Propionate Nasal 16 Gm [place]) 2 spray NOSTRIL-B DAILY [facility] Glucose (Glucose Gel 15 Gm Gel..Gram.) 15 gm PO Q15M PRN; Protocol PRN Reason: per Hypoglycemia Standing Ord. Dextrose (D10) 250 mls @ 750 mls/hr IV Q15M PRN; Protocol PRN Reason: per Hypoglycemia Standing Ord. Lactated Ringer's (Lr) 1,000 mls @ 50 mls/hr IVCONT .Q20H [facility] Last Admin: 05/17/22 19:41 Dose: 50 mls/hr Documented By: SHARRON Insulin Human Lispro (Insulin Lispro 100 Unit/Ml 3 Ml Vial) 0 unit SUBCUT QIDACHS [facility]; Protocol Last Admin: 05/18/22 08:19 Dose: Not Given Documented By: JOSE MANUEL Non-Admin Reason: No Insulin Coverage Latanoprost (Latanoprost 0.005 % Ophth Kathy 2.5 Ml Drops) 1 drop EYE-RIGHT DAILY@1700 [facility] Magnesium Oxide (Magnesium Oxide 400 Mg Tablet) 400 mg PO DAILY [facility] Melatonin (Melatonin 3 Mg Tablet) 6 mg PO BEDTIME PRN PRN Reason: Insomnia Omeprazole (Omeprazole 40 Mg Capsule.Dr) 40 mg PO BID@0630,1630 [facility] Ondansetron HCl (Ondansetron Hcl 4 Mg/2 Ml Vial) 4 mg IVPUSH Q8H PRN PRN Reason: Nausea and Vomiting Sodium Chloride (0.9 % Sodium Chloride Flush 3 Ml Syringe) 3 ml IVFLUSH QSHIFT [facility] Last Admin: 05/18/22 08:19 Dose: Not Given Documented By: JOSE MANUEL Non-Admin Reason: IV Running Labs 05/17/22 14:42 05/17/22 14:42 Labs: Laboratory Results - last 24 hr 05/17/22 05/17/22 05/17/22 14:42 14:42 14:42 MCV 89.4 MCH 30.5 MCHC 34.1 RDW 15.9 Plt Count 60 L D MPV 12.9 H Immature Gran % (Auto) 0.3 Neut % (Auto) 67.4 Lymph % (Auto) 16.2 L Dickens % (Auto) 10.9 Eos % (Auto) 4.3 H Baso % (Auto) 0.9 Lymph # (Auto) 1.1 L Dickens # (Auto) 0.7 Eos # (Auto) 0.3 Baso # (Auto) 0.1 Abs Immat Gran (auto) 0.02 Absolute Neuts (auto) 4.4 Absolute Nucleated RBC 0.000 Nucleated RBC % (auto) 0.0 PT 14.7 H INR 1.3 H Anion Gap 17 Estim Creat Clear Calc 89.5 Estimated GFR > 60 POC Glucose Random Glucose 100 Lactic Acid Calcium 8.2 L Total Bilirubin 3.0 H AST 39 H ALT 19 Alkaline Phosphatase 118 H Ammonia Troponin I High Sens Total Protein 6.6 Albumin 3.7 Lipase 19 TSH Free T4 Urine Color Urine Appearance Urine pH Ur Specific Kaplan Urine Protein Urine Glucose (UA) Urine Ketones Urine Blood Urine Nitrite Ur Leukocyte Esterase Urine RBC Urine WBC Ur Squamous Epith Cells Urine Bacteria Hyaline Casts COVID-19 ([facility]) COVID-19 Clin Com 05/17/22 05/17/22 05/17/22 14:42 14:42 14:42 MCV MCH MCHC RDW Plt Count MPV Immature Gran % (Auto) Neut % (Auto) Lymph % (Auto) Dickens % (Auto) Eos % (Auto) Baso % (Auto) Lymph # (Auto) Dickens # (Auto) Eos # (Auto) Baso # (Auto) Abs Immat Gran (auto) Absolute Neuts (auto) Absolute Nucleated RBC Nucleated RBC % (auto) PT INR Anion Gap Estim Creat Clear Calc Estimated GFR POC Glucose Random Glucose Lactic Acid 1.7 Calcium Total Bilirubin AST ALT Alkaline Phosphatase Ammonia 22 Troponin I High Sens Total Protein Albumin Lipase TSH Free T4 Urine Color Urine Appearance Urine pH Ur Specific Kaplan Urine Protein Urine Glucose (UA) Urine Ketones Urine Blood Urine Nitrite Ur Leukocyte Esterase Urine RBC Urine WBC Ur Squamous Epith Cells Urine Bacteria Hyaline Casts COVID-19 ([facility]) Negative COVID-19 Clin Com See Note 05/17/22 05/17/22 05/17/22 14:42 16:09 17:55 MCV MCH MCHC RDW Plt Count MPV Immature Gran % (Auto) Neut % (Auto) Lymph % (Auto) Dickens % (Auto) Eos % (Auto) Baso % (Auto) Lymph # (Auto) Dickens # (Auto) Eos # (Auto) Baso # (Auto) Abs Immat Gran (auto) Absolute Neuts (auto) Absolute Nucleated RBC Nucleated RBC % (auto) PT INR Anion Gap Estim Creat Clear Calc Estimated GFR POC Glucose Random Glucose Lactic Acid Calcium Total Bilirubin AST ALT Alkaline Phosphatase Ammonia Troponin I High Sens 8.3 Total Protein Albumin Lipase TSH 0.21 L Free T4 1.05 Urine Color Dark Yellow Urine Appearance Cloudy Urine pH 6.0 Ur Specific Kaplan >= 1.030 H Urine Protein 30 (1+) H Urine Glucose (UA) Negative Urine Ketones 15 Urine Blood Small (1+) H Urine Nitrite Positive H Ur Leukocyte Esterase Moderate (2+) H Urine RBC 11-20 H Urine WBC >50 H Ur Squamous Epith Cells 0-2 Urine Bacteria 1+ Hyaline Casts 0-2 COVID-19 ([facility]) COVID-19 Clin Com 05/17/22 05/18/22 05/18/22 23:42 08:00 10:19 MCV MCH MCHC RDW Plt Count MPV Immature Gran % (Auto) Neut % (Auto) Lymph % (Auto) Dickens % (Auto) Eos % (Auto) Baso % (Auto) Lymph # (Auto) Dickens # (Auto) Eos # (Auto) Baso # (Auto) Abs Immat Gran (auto) Absolute Neuts (auto) Absolute Nucleated RBC Nucleated RBC % (auto) PT INR Anion Gap Estim Creat Clear Calc Estimated GFR POC Glucose 100 101 97 Random Glucose Lactic Acid Calcium Total Bilirubin AST ALT Alkaline Phosphatase Ammonia Troponin I High Sens Total Protein Albumin Lipase TSH Free T4 Urine Color Urine Appearance Urine pH Ur Specific Kaplan Urine Protein Urine Glucose (UA) Urine Ketones Urine Blood Urine Nitrite Ur Leukocyte Esterase Urine RBC Urine WBC Ur Squamous Epith Cells Urine Bacteria Hyaline Casts COVID-19 ([facility]) COVID-19 Clin Com Microbiology Microbiology Results: Microbiology 05/17/22 18:14 Urine Culture - Preliminary Urine clean catch - Urine [facility] Gram positive cocci Assessment and Plan (1) Vomiting: Status: Acute (2) Unintentional weight loss: Status: Acute (3) Hypocalcemia: Status: Acute Plan 66yo M long-term resident of [facility] with paroxysmal AF not on AC due to hx upper GI, CHF, BPH, COPD, DM2, GERD, hypothyroidism, depression, ITP, PAD, L eye blindness, gout presenting with ongoing nausea vomiting of several months duration noted to have mild hypokalemia and anterior lateral ST changes.? # Intractable nausea vomiting of several months duration associated with weight loss ?? Persistent nausea, vomiting, underwent upper endoscopy that showed obstructing gastroesophageal junction mass, biopsies obtained, gastric polyp biopsy obtained, normal duodenum continue PPI, clear liquids, clear ensures , IV antiemetics will discuss nutrition options with GI, esophageal stent vs G-tube # possible UTI continue IV ceftriaxone follow urine culture ? # hypokalemia repleted # hypocalcemia continue Ca replacement ? # constipation stool softeners # DM2 ? stable blood sugars, decreased by mouth intake, on insulin sliding scale, hold basal insulin. # HTN - soft blood pressures will place on Coreg 6.25 mg b.i.d. follow blood pressures, hold Lasix and lisinopril # pAF ? on low-dose Coreg 6.25 mg b.i.d. home dose Coreg 12.5 mg b.i.d. - not on AC due to GI bleeding in past # CHF unspecified no acute exacerbation hold Lasix # HLD hold statins follow lipid profile. # depression? continue escitalopram, on 30 mg by mouth daily will reduce to 20 mg daily # chronic normocytic anemia-stable # ITP - platelets low but stable- monitor # GERD - continue PPI + hold sucralfate # PAD? hold pentoxifylline # history of gout continue colchicine # VTE ppx:? Compression boots In my clinical judgment, the patient requires continued inpatient hospitalization for further workup for intractable nausea, vomiting, ,IV antiemetics and need alternate nutrition Time Spent With Patient Time: Total time managing care of this patient today ____ minutes. Quality Stroke Does the patient have a stroke diagnosis?: No VTE Prior VTE?: No VTE Risk Level:: Medical - moderate - high VTE Device Contraindication: N/A - Device Ordered VTE Drug Contraindication: Treatment Not Indicated
[2022-05-18 12:53] LABS: Glucose, Whole Blood 89 mg/dL (60-115)
[2022-05-18 14:09] LABS: Blood Urea Nitrogen 7 mg/dL (9-16); Calcium 7.4 mg/dL (8.4-10.2); Creatinine Clr Calc Pharmacy 109.4; Estimated Glomerular Filt Rate > 60; Glucose Random 96 mg/dL (60-115)
[2022-05-18 14:20] LABS: Anion Gap 17 (12-20); Carbon Dioxide 22 mmol/L (22-29); Chloride 107 mmol/L (96-108); Potassium 3.4 mmol/L (3.3-5.1); Sodium 143 mmol/L (135-145)
[2022-05-18 16:18] LABS: Glucose, Whole Blood 92 mg/dL (60-115)
[2022-05-18] MEDS: cefTRIAXone sodium 1 GM in 0.9 % Sodium Chloride 50 ML IV (17:35)
[2022-05-18] MEDS: Latanoprost 0.005 % Ophth Sol 2.5 ML DROPS 1 DROP EYE-RIGHT (17:35)
[2022-05-18] MEDS: Melatonin 3 MG TABLET 6 MG PO (19:08)
[2022-05-18 19:51] LABS: Glucose, Whole Blood 101 mg/dL (60-115)
[2022-05-19] VITALS: BP 99/59; PULSE 78; RESP 16; TEMP 36.4; O2SAT 98
[2022-05-19] MEDS: 0.9 % Sodium Chloride Flush 3 ML SYRINGE IVFLUSH ×4 (00:02→19:15)
[2022-05-19 03:44] VITALS: BP 108/61; PULSE 81; RESP 14; TEMP 36.6; O2SAT 100
[2022-05-19] MEDS: Omeprazole 40 MG CAPSULE.DR PO (05:57)
[2022-05-19 07:36] VITALS: BP 111/57; PULSE 67; RESP 18; TEMP 36.2; O2SAT 99
[2022-05-19 07:41] LABS: Glucose, Whole Blood 87 mg/dL (60-115)
[2022-05-19 11:24] LABS: Glucose, Whole Blood 78 mg/dL (60-115)
[2022-05-19 11:51] VITALS: BMI 21.9
--- NOTE | 2022-05-19 11:56 | MHC.CLN ---
PT IS MODERATELY MALNOURISHED PT WITH 30% SIGNIFICANT WT LOSS X 1 YEAR. PT REPORTS DOWN 70# SINCE NOVEMBER WITH INTRACTABLE N/V FOR SEVERAL MONTHS DIET RX: C/L-APPROPRIATE AT THIS TIME PT RECEIVING ENSURE CLEAR TID PROVIDES 720KCALS, 24G PROTEIN RECOMMEND WHEN DIET ADVANCES CHANGE SUPPLEMENT TO ENSURE PLUS HIGH PROTEIN TID MONITOR PO INTAKE SEE ALSO FULL CLINICAL NUTRITION ASSESSMENT
[2022-05-19] MEDS: Fluticasone Propionate Nasal 16 GM SPRAY 2 SPRAY NOSTRIL-B (12:00)
[2022-05-19 12:35] VITALS: BP 123/58; PULSE 73; RESP 19; TEMP 36.7; O2SAT 93
--- NOTE | 2022-05-19 12:44 | HO.POSTANES ---
Post Anesthesia Evaluation Post Anesthesia Evaluation Vital Signs: Vital Signs Temp Pulse Resp BP Pulse Ox O2 Del Method 05/19/22 12:35 98.0 F 73 19 123/58 L 93 Room Air 05/19/22 07:36 97.2 F 67 18 111/57 L 99 Room Air 05/19/22 03:44 97.9 F 81 14 108/61 100 Room Air Anesthesia: Monitored Mental Status: Awake Pain Control: Satisfactory Nausea/Vomiting: None Hydration: Adequate Anesthesia-Related Issues: No Anes. Related Issues
--- NOTE | 2022-05-19 14:29 | HO.PM.IMPN ---
Subjective Subjective Date of Service: 05/19/22 Interval History: Patient tolerating some clear liquids, requesting to change code status to full code if okay with his healthcare proxy Joyce Solorzano , no other acute issues overnight denies abdominal pain, no vomiting, no nausea, no fevers no chills, no other acute issues overnight. Review of Systems Review of Systems: Yes all other systems are reviewed and are negative Physical Exam Vital Signs: Vital Signs: Last Vital Signs Temp 98.0 F 05/19/22 12:35 Pulse 73 05/19/22 12:35 Resp 19 05/19/22 12:35 BP 123/58 L 05/19/22 12:35 Pulse Ox 93 05/19/22 12:35 O2 Del Method Room Air 05/19/22 12:35 O2 Flow Rate 6 05/18/22 11:15 BMI result Body Mass Index 21.9 Const: Other: Gen:? Awake alert x3, in no acute di stress HEENT: L ey e blind, moist muc us membranes Neck: supple, no JVD Zo ngs: clear to ausc ultation bilateral ly, no wheeze no c rackles Heart: reg ular rate and rhyt hm, no murmurs Abd : soft, nontender, bowel sounds halima ble, non-distended Ext: no edema Ski n: warm/well-perfu sed Neuro: alert a nd oriented x3, no focal findings Ps ych: appropriate a ffect Objective Data Active Medications Acetaminophen (Acetaminophen Supp 650 Mg Supp.Rect) 650 mg [place] Q6H PRN PRN Reason: Pain, Mild (Pain Scale 1-3) Carvedilol (Carvedilol 6.25 Mg Tablet) 6.25 mg PO BID [facility]; Protocol Last Admin: 05/19/22 09:50 Dose: Not Given Documented By: JOSE MANUEL Non-Admin Reason: Patient Refused Colchicine (Colchicine 0.6 Mg Tablet) 0.3 mg PO Q48H [facility] Last Admin: 05/18/22 10:45 Dose: Not Given Documented By: JOSE MANUEL Non-Admin Reason: Physician Held Med Erythromycin (Erythromycin Base 0.5% Oph Oin 1 Gm Tube) 0.25 cm EYE-LEFT MOTH@0900 [facility] Escitalopram Oxalate (Escitalopram Oxalate 10 Mg Tablet) 10 mg PO DAILY [facility] Last Admin: 05/19/22 09:50 Dose: Not Given Documented By: JOSE MANUEL Non-Admin Reason: Patient Refused Fluticasone Propionate (Fluticasone Propionate Nasal 16 Gm [place]) 2 spray NOSTRIL-B DAILY [facility] Last Admin: 05/19/22 12:00 Dose: 2 spray Documented By: JOSE MANUEL Glucose (Glucose Gel 15 Gm Gel..Gram.) 15 gm PO Q15M PRN; Protocol PRN Reason: per Hypoglycemia Standing Ord. Dextrose (D10) 250 mls @ 750 mls/hr IV Q15M PRN; Protocol PRN Reason: per Hypoglycemia Standing Ord. Ceftriaxone Sodium 1 gm/ (Sodium Chloride) 50 mls @ 100 mls/hr IV Q24H [facility] Last Infusion: 05/18/22 18:20 Dose: 0 mls/hr Documented By: JOSE MANUEL Insulin Human Lispro (Insulin Lispro 100 Unit/Ml 3 Ml Vial) 0 unit SUBCUT QIDACHS [facility]; Protocol Last Admin: 05/19/22 12:01 Dose: Not Given Documented By: JOSE MANUEL Non-Admin Reason: No Insulin Coverage Latanoprost (Latanoprost 0.005 % Ophth Kathy 2.5 Ml Drops) 1 drop EYE-RIGHT DAILY@1700 [facility] Last Admin: 05/18/22 17:35 Dose: 1 drop Documented By: JOSE MANUEL Magnesium Oxide (Magnesium Oxide 400 Mg Tablet) 400 mg PO DAILY [facility] Last Admin: 05/19/22 09:50 Dose: Not Given Documented By: JOSE MANUEL Non-Admin Reason: Patient Refused Melatonin (Melatonin 3 Mg Tablet) 6 mg PO BEDTIME PRN PRN Reason: Insomnia Last Admin: 05/18/22 19:08 Dose: 6 mg Documented By: WILLIAM Omeprazole (Omeprazole 40 Mg Capsule.) 40 mg PO BID@0630,1630 [facility] Last Admin: 05/19/22 05:57 Dose: 40 mg Documented By: JACLYN Ondansetron HCl (Ondansetron Hcl 4 Mg/2 Ml Vial) 4 mg IVPUSH Q8H PRN PRN Reason: Nausea and Vomiting Polyethylene Glycol (Polyethylene Glycol 3350 17 Gm Powd.Pack) 17 gm PO DAILY [facility] Last Admin: 05/19/22 09:50 Dose: Not Given Documented By: HO.FOGARTB Non-Admin Reason: Patient Refused Sodium Chloride (0.9 % Sodium Chloride Flush 3 Ml Syringe) 3 ml IVFLUSH QSHIFT [facility] Last Admin: 05/19/22 08:55 Dose: 3 ml Documented By: BURTONB Labs 05/17/22 14:42 05/18/22 13:26 Labs: Laboratory Results - last 24 hr 05/18/22 05/18/22 05/19/22 16:08 19:37 07:36 POC Glucose 92 101 87 05/19/22 11:11 POC Glucose 78 Microbiology Microbiology Results: Microbiology 05/17/22 18:14 Urine Culture - Final Urine clean catch - Urine [facility] Staphylococcus aureus 05/17/22 15:02 Blood Culture - Preliminary Blood - Venous No growth after 24 hours. 05/17/22 14:42 Blood Culture - Preliminary Blood - Venous No growth after 24 hours. Assessment and Plan (1) Vomiting: Status: Acute (2) Unintentional weight loss: Status: Acute (3) Hypocalcemia: Status: Acute Plan 66yo M long-term resident of [facility] with paroxysmal AF not on AC due to hx upper GI, CHF, BPH, COPD, DM2, GERD, hypothyroidism, depression, ITP, PAD, L eye blindness, gout presenting with ongoing nausea vomiting of several months duration noted to have mild hypokalemia and anterior lateral ST changes.? # Intractable nausea vomiting of several months duration associated with weight loss ?? Tolerating bong mary , underwent upper endoscopy 05/18 it showed obstructing gastroesophageal junction mass, biopsies obtained, gastric polyp biopsy obtained, normal duodenum continue PPI, clear liquids, clear ensures , IV antiemetics Barium swallow done at [facility] showed esophageal mass extending towards GE junction causing high-grade stricture and partial obstruction and mild esophageal dysmotility will discuss nutrition options with GI, esophageal stent vs G-tube. # possible UTI urine culture grew greater than 100,000 staph aureus , sensitive to nitro, oxacillin, tetracycline and Bactrim, on IV ceftriaxone will chnage to iv lasix ? # hypokalemia repleted # hypocalcemia continue Ca replacement ? # constipation added MiraLax #DM2 ? stable blood sugars, decreased by mouth intake, on insulin sliding scale, hold basal insulin. # HTN - soft blood pressures will place on Coreg 6.25 mg b.i.d. follow blood pressures, hold Lasix and lisinopril # pAF ? on low-dose Coreg 6.25 mg b.i.d. home dose Coreg 12.5 mg b.i.d. - not on AC due to GI bleeding in past # CHF unspecified no acute exacerbation hold Lasix. # HLD hold statins follow lipid profile. # depression? continue escitalopram, on 30 mg by mouth daily will reduce to 20 mg daily # chronic normocytic anemia-stable # ITP - platelets low but stable- monitor # GERD - continue PPI + hold sucralfate # PAD? hold pentoxifylline # history of gout takes colchicine prn. # VTE ppx:? Compression boots Code status changed to full code patient MOLST form set DNR DNI spoke with patient's healthcare proxy Joyce as per patient's request, she agreed for full code at present, and will rediscuss code status after final pathology report In my clinical judgment, the patient requires continued inpatient hospitalization for further workup for intractable nausea, vomiting, ,IV antiemetics and need alternate nutrition Time Spent With Patient Time: Total time managing care of this patient today ____ minutes. Quality Stroke Does the patient have a stroke diagnosis?: No VTE Prior VTE?: No VTE Risk Level:: Medical - moderate - high VTE Device Contraindication: N/A - Device Ordered VTE Drug Contraindication: Treatment Not Indicated
[2022-05-19 15:05] VITALS: BP 109/57; PULSE 59; RESP 20; TEMP 36.6; O2SAT 100
[2022-05-19 15:17] LABS: Glucose, Whole Blood 92 mg/dL (60-115)
[2022-05-19] MEDS: Doxycycline Hyclate 100 MG in 0.9 % Sodium Chloride 250 ML 166.67 MG IV (16:39)
[2022-05-19] MEDS: Latanoprost 0.005 % Ophth Sol 2.5 ML DROPS 1 DROP EYE-RIGHT (16:39)
[2022-05-19] MEDS: Melatonin 3 MG TABLET 6 MG PO (19:15)
[2022-05-19 19:55] LABS: Glucose, Whole Blood 80 mg/dL (60-115)
[2022-05-19 23:47] VITALS: BP 117/57; PULSE 74; RESP 20; TEMP 36.4; O2SAT 100
--- NOTE | 2022-05-20 00:10 | PC.NURSE ---
0000 Pt refusing camera, VMT notified per this RN
[2022-05-20 05:07] LABS: Glucose, Whole Blood 70 mg/dL (60-115)
[2022-05-20] MEDS: Doxycycline Hyclate 100 MG in 0.9 % Sodium Chloride 250 ML 166.67 MG IV ×2 (06:10→16:19)
[2022-05-20 07:00] VITALS: BP 120/58; PULSE 72; RESP 19; TEMP 36.3; O2SAT 100
[2022-05-20 07:32] LABS: Glucose, Whole Blood 81 mg/dL (60-115)
--- NOTE | 2022-05-20 07:52 | PC.NURSE ---
Addendum entered by Vanessa Bean RN 05/20/22 08:03: notified of pt refusing meds. Original Note: 07:52 A&O X 3 [birth year]'s my birthday today! , pt denies pain, lungs dim, positive bowel sounds and passing gas. does not remember last BM states I haven't been eating much. I just had some juice and threw that up . good pedal pulses, no edema. pt refused morning medications. pt also refused bed alarm and states i will ring if I need anything.
[2022-05-20] MEDS: Lactated Ringers 1,000 ML 125 ML IVCONT ×2 (08:22→17:57)
[2022-05-20] MEDS: 0.9 % Sodium Chloride Flush 3 ML SYRINGE IVFLUSH (08:22)
[2022-05-20 11:15] LABS: Glucose, Whole Blood 101 mg/dL (60-115)
--- NOTE | 2022-05-20 12:29 | HO.PM.IMPN ---
Subjective Subjective Date of Service: 05/20/22 Interval History: tolerating clear liquids hungry, wants to eat no chest or abd pain Review of Systems Review of Systems: Yes all other systems are reviewed and are negative Physical Exam Vital Signs: Vital Signs: Last Vital Signs Temp 97.3 F 05/20/22 07:00 Pulse 72 05/20/22 07:00 Resp 19 05/20/22 07:00 BP 120/58 L 05/20/22 07:00 Pulse Ox 100 05/20/22 07:00 O2 Del Method Room Air 05/20/22 07:00 O2 Flow Rate 6 05/18/22 11:15 BMI result Body Mass Index 21.9 Gen: in no acute distress HEENT: sclera anicteric, legally blind, moist mucus membranes Neck: supple Lungs: clear to auscultation bilaterally Heart: regular rate and rhythm, no murmurs Abd: soft, non-tender, non-distended Ext: no edema Skin: warm/well-perfused Neuro: alert and oriented x3, no focal findings Psych: appropriate affect Objective Data Active Medications Acetaminophen (Acetaminophen Supp 650 Mg Supp.Rect) 650 mg NM Q6H PRN PRN Reason: Pain, Mild (Pain Scale 1-3) Carvedilol (Carvedilol 6.25 Mg Tablet) 6.25 mg PO BID [facility]; Protocol Last Admin: 05/20/22 09:10 Dose: Not Given Documented By: MANDY Non-Admin Reason: pt refused. aware Erythromycin (Erythromycin Base 0.5% Oph Oin 1 Gm Tube) 0.25 cm EYE-LEFT MOTH@0900 [facility] Escitalopram Oxalate (Escitalopram Oxalate 10 Mg Tablet) 10 mg PO DAILY [facility] Last Admin: 05/20/22 09:10 Dose: Not Given Documented By: MANDY Non-Admin Reason: pt refused. aware Fluticasone Propionate (Fluticasone Propionate Nasal 16 Gm [place]) 2 spray NOSTRIL-B DAILY [facility] Last Admin: 05/20/22 09:10 Dose: Not Given Documented By: MANDY Non-Admin Reason: pt refused. aware Glucose (Glucose Gel 15 Gm Gel..Gram.) 15 gm PO Q15M PRN; Protocol PRN Reason: per Hypoglycemia Standing Ord. Dextrose (D10) 250 mls @ 750 mls/hr IV Q15M PRN; Protocol PRN Reason: per Hypoglycemia Standing Ord. Doxycycline Hyclate 100 mg/ (Sodium Chloride) 250 mls @ 166.67 mls/hr IV Q12H [facility] Lactated Ringer's (Lr) 1,000 mls @ 125 mls/hr IVCONT .Q8H [facility] Last Admin: 05/20/22 08:22 Dose: 125 mls/hr Documented By: MANDY Insulin Human Lispro (Insulin Lispro 100 Unit/Ml 3 Ml Vial) 0 unit SUBCUT QIDACHS [facility]; Protocol Last Admin: 05/20/22 11:17 Dose: Not Given Documented By: MANDY Non-Admin Reason: No Insulin Coverage Latanoprost (Latanoprost 0.005 % Ophth Akthy 2.5 Ml Drops) 1 drop EYE-RIGHT DAILY@1700 [facility] Last Admin: 05/19/22 16:39 Dose: 1 drop Documented By: JOSE MANUEL Magnesium Oxide (Magnesium Oxide 400 Mg Tablet) 400 mg PO DAILY [facility] Last Admin: 05/20/22 09:10 Dose: Not Given Documented By: MANDY Non-Admin Reason: pt refused. MD portillo Melatonin (Melatonin 3 Mg Tablet) 6 mg PO BEDTIME PRN PRN Reason: Insomnia Last Admin: 05/19/22 19:15 Dose: 6 mg Documented By: ANTONY Omeprazole (Omeprazole 20 Mg/10 Ml Susp.Recon) 40 mg PO BID@0630,1630 [facility] Last Admin: 05/20/22 07:37 Dose: Not Given Documented By: MANDY Non-Admin Reason: pt refused. per pt I will throw up Ondansetron HCl (Ondansetron Hcl 4 Mg/2 Ml Vial) 4 mg IVPUSH Q8H PRN PRN Reason: Nausea and Vomiting Polyethylene Glycol (Polyethylene Glycol 3350 17 Gm Powd.Pack) 17 gm PO DAILY [facility] Last Admin: 05/20/22 09:10 Dose: Not Given Documented By: MANDY Non-Admin Reason: pt refused. MD portillo Sodium Chloride (0.9 % Sodium Chloride Flush 3 Ml Syringe) 3 ml IVFLUSH QSHIFT [facility] Last Admin: 05/20/22 08:22 Dose: 3 ml Documented By: MANDY Labs 05/17/22 14:42 05/18/22 13:26 Labs: Laboratory Results - last 24 hr 05/19/22 05/19/22 05/20/22 15:08 19:51 05:04 POC Glucose 92 80 70 05/20/22 05/20/22 07:05 11:10 POC Glucose 81 101 Microbiology Microbiology Results: Microbiology 05/17/22 15:02 Blood Culture - Preliminary Blood - Venous No growth after 48 hours. 05/17/22 14:42 Blood Culture - Preliminary Blood - Venous No growth after 48 hours. Assessment and Plan (1) Vomiting: Status: Acute (2) Unintentional weight loss: Status: Acute (3) Hypocalcemia: Status: Acute Plan d#4 66yo M long-term resident of [facility] with paroxysmal AF not on AC due to hx upper GI, CHF, BPH, COPD, DM2, GERD, hypothyroidism, depression, ITP, PAD, L eye blindness, gout presenting with ongoing nausea vomiting of several months duration, noted to have mild hypokalemia and anterior lateral ST changes diagnosed with obstructing esophageal mass # esophageal mass - with intractable N/V for months associated with weight loss - EGD 05/18: obstructing GE junction mass; biopsies pending - continue PPI, clear liquids, Ensure Clear, IV antiemetics - barium swallow done at [facility] showed esophageal mass extending towards GE junction causing high-grade stricture and partial obstruction and mild esophageal dysmotility - discuss nutrition options with GI: esophageal stent vs G-tube? Ensure shakes for now; once path is finalized, will need EUS vs staging depend on whether shows dysplasia vs adenoCA # MSSA UTI - changed from IV ceftriaxone to doxycycline today # hypokalemia - repleted # hypocalcemia - PO Ca replacement ? # constipation - MiiraLax #DM2 - hold basal insulin, continue correction-dose lispro # HTN - continue carvedilol, hold lisinopril + furosedmie # paroxysmal AF - continue carvedilol - no AC due to bleeding in past # unspecified CHF - not in acute exacerbation; hold furosemide as above # mood disorder - escitalopram # chronic normocytic anemia - Hb stable # ITP - platelet count stable # GERD - PPI # PAD - hold pentoxifylline # hx gout - colchine prn # VTE ppx: SCDs # dispo: LTC In my clinical judgment, the patient requires continued inpatient hospitalization for the following reasons: feeding plan Time Spent With Patient Time: Total time managing care of this patient today _40___ minutes. Quality Stroke Does the patient have a stroke diagnosis?: No VTE Prior VTE?: No VTE Risk Level:: Medical - moderate - high VTE Device Contraindication: N/A - Device Ordered VTE Drug Contraindication: Treatment Not Indicated
[2022-05-20 15:14] VITALS: BP 118/58; PULSE 67; RESP 20; TEMP 36.7; O2SAT 100
[2022-05-20 15:44] LABS: Glucose, Whole Blood 101 mg/dL (60-115)
--- NOTE | 2022-05-20 15:59 | PM.GIPN ---
Subjective Subjective Date of Service: 05/20/22 Interval History: Pt seen and evaluated at bedside. Reports throwing up Ensure shake due to taste but has been tolerating string cheese without any difficulty. Critical Care Time (minutes): 0 Physical Exam Vital Signs: Vital Signs: Last Vital Signs Temp 98.0 F 05/20/22 15:14 Pulse 67 05/20/22 15:14 Resp 20 05/20/22 15:14 BP 118/58 L 05/20/22 15:14 Pulse Ox 100 05/20/22 15:14 O2 Del Method Room Air 05/20/22 15:14 O2 Flow Rate 6 05/18/22 11:15 BMI result Body Mass Index 21.9 Gen appear: NAD Abd: soft, nontender Objective Data Labs 05/17/22 14:42 05/18/22 13:26 Labs: Laboratory Results - last 24 hr 05/20/22 05/20/22 05/20/22 05:04 07:05 11:10 POC Glucose 70 81 101 05/20/22 05/20/22 15:40 19:36 POC Glucose 101 119 H Microbiology Microbiology Results: Microbiology 05/17/22 15:02 Blood - Venous Blood Culture - Preliminary No growth after 48 hours. 05/17/22 14:42 Blood - Venous Blood Culture - Preliminary No growth after 48 hours. 05/17/22 18:14 Urine clean catch - Urine [facility] Urine Culture - Final Staphylococcus aureus Procedures Date of Service Date of Service: 05/20/22 Progress Note: A&P Assessment and plan (1) Dysphagia: Status: Acute (2) Esophageal stricture: Status: Acute (3) Esophageal mass: Status: Acute Plan Discussed with the pt that will likely need modified diet to pureed given high grade stricture, to reduce N/V and risk of aspiration. If unable to meet his caloric demands with PO, will need N-J tube placed by IR (with which he can be discharged) for tubefeeds until we have a definitive treatment plan. 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 Suspect could be sampling limitation given appearance of the mass on endoscopy. Immunostains pending. If immunostains consistent with dysplasia without neoplasia, will likely need to be referred to tertiary center for EUS for staging +/- endoscopic resection. Otherwise if adenoca confirmed, will refer to surg onc. Please consider obtain CT chest with IV contrast to complete staging scans. Time Spent With Patient Time: Total time managing care of this patient today ____ minutes. Quality Stroke Does the patient have a stroke diagnosis?: No VTE Prior VTE?: No VTE Risk Level:: Medical - moderate - high VTE Device Contraindication: N/A - Device Ordered VTE Drug Contraindication: Treatment Not Indicated
[2022-05-20] MEDS: Latanoprost 0.005 % Ophth Sol 2.5 ML DROPS 1 DROP EYE-RIGHT (16:41)
[2022-05-20] MEDS: Omeprazole 40 MG CAPSULE.DR PO (17:09)
[2022-05-20 19:40] LABS: Glucose, Whole Blood 119 mg/dL (60-115)
[2022-05-20] MEDS: Melatonin 3 MG TABLET 6 MG PO (19:41)
[2022-05-20 23:48] VITALS: BP 140/64; PULSE 70; RESP 20; TEMP 35.9; O2SAT 100
[2022-05-21] MEDS: Doxycycline Hyclate 100 MG in 0.9 % Sodium Chloride 250 ML 166.67 MG IV ×2 (03:41→17:04)
[2022-05-21] MEDS: Lactated Ringers 1,000 ML 125 ML IVCONT ×3 (03:45→23:48)
[2022-05-21 07:00] LABS: Hematocrit 31.7 % (42.0-52.0); Hemoglobin 10.6 g/dl (14.0-18.0); Mean Corpuscular HGB Conc 33.4 g/dl (31.0-36.0); Mean Corpuscular Hemoglobin 30.1 pg (27.0-33.0); Mean Corpuscular Volume 90.1 fL (80.0-98.0); Mean Platelet Volume 14.1 fL (9.4-12.4); Red Blood Count 3.52 X10*6/uL (4.60-5.80); Red Cell Distribution Width 15.9 % (11.0-16.0); White Blood Count 4.6 X10*3/uL (4.8-10.8)
[2022-05-21 07:02] LABS: Platelet Count 46 X10*3/uL (160-400)
[2022-05-21 07:23] LABS: Anion Gap 15 (12-20); Blood Urea Nitrogen 6 mg/dL (9-16); Calcium 7.8 mg/dL (8.4-10.2); Carbon Dioxide 25 mmol/L (22-29); Chloride 106 mmol/L (96-108); Creatinine Clr Calc Pharmacy 103.2; Estimated Glomerular Filt Rate > 60; Glucose Random 87 mg/dL (60-115); Magnesium 1.3 mg/dL (1.6-2.6); Phosphorus 3.6 mg/dL (2.7-4.5); Sodium 143 mmol/L (135-145)
[2022-05-21 07:32] VITALS: BP 116/56; PULSE 65; RESP 20; TEMP 36.4; O2SAT 97
[2022-05-21 07:51] LABS: Glucose, Whole Blood 96 mg/dL (60-115)
[2022-05-21] MEDS: 0.9 % Sodium Chloride Flush 3 ML SYRINGE IVFLUSH (08:16)
[2022-05-21] MEDS: Potassium Chloride/H20 10 MEQ/100 ML PIGGYBACK 100 MEQ IV (08:16)
[2022-05-21] MEDS: Magnesium Sulfate/H2O 2 GM/50 ML PIGGYBACK IV (08:50)
--- NOTE | 2022-05-21 10:47 | P.PNIM_ITS ---
Subjective Subjective Date of Service: 05/21/22 Interval History: wishes to try purees no abd pain Review of Systems Review of Systems: Yes all other systems are reviewed and are negative Physical Exam Vital Signs: Vital Signs: Last Vital Signs Temp 97.6 F 05/21/22 07:32 Pulse 65 05/21/22 07:32 Resp 20 05/21/22 07:32 BP 116/56 L 05/21/22 07:32 Pulse Ox 97 05/21/22 07:32 O2 Del Method Room Air 05/21/22 07:32 O2 Flow Rate 6 05/18/22 11:15 BMI result Body Mass Index 21.9 Gen: in no acute distress HEENT: sclera anicteric, legally blind, moist mucus membranes Neck: supple Lungs: clear to auscultation bilaterally Heart: regular rate and rhythm, no murmurs Abd: soft, non-tender, non-distended Ext: no edema Skin: warm/well-perfused Neuro: alert and oriented x3, no focal findings Psych: appropriate affect Objective Data Active Medications Acetaminophen (Acetaminophen Supp 650 Mg Supp.Rect) 650 mg SC Q6H PRN PRN Reason: Pain, Mild (Pain Scale 1-3) Calcium Carbonate (Calcium Carbonate 500 Mg Tablet) 500 mg PO TID [facility] Last Admin: 05/21/22 09:58 Dose: Not Given Documented By: MANDY Non-Admin Reason: pt refused. MD aware Carvedilol (Carvedilol 6.25 Mg Tablet) 6.25 mg PO BID [facility]; Protocol Last Admin: 05/21/22 09:59 Dose: Not Given Documented By: MANDY Non-Admin Reason: pt refused aware Erythromycin (Erythromycin Base 0.5% Oph Oin 1 Gm Tube) 0.25 cm EYE-LEFT MOTH@0900 [facility] Escitalopram Oxalate (Escitalopram Oxalate 10 Mg Tablet) 10 mg PO DAILY [facility] Last Admin: 05/21/22 10:03 Dose: Not Given Documented By: MANDY Non-Admin Reason: pt refused. MD aware Fluticasone Propionate (Fluticasone Propionate Nasal 16 Gm [place]) 2 spray NOSTRIL-B DAILY [facility] Last Admin: 05/21/22 09:59 Dose: Not Given Documented By: MANDY Non-Admin Reason: pt refused Glucose (Glucose Gel 15 Gm Gel..Gram.) 15 gm PO Q15M PRN; Protocol PRN Reason: per Hypoglycemia Standing Ord. Dextrose (D10) 250 mls @ 750 mls/hr IV Q15M PRN; Protocol PRN Reason: per Hypoglycemia Standing Ord. Doxycycline Hyclate 100 mg/ (Sodium Chloride) 250 mls @ 166.67 mls/hr IV Q12H [facility] Last Infusion: 05/21/22 05:15 Dose: 0 mls/hr Documented By: NATACHA Lactated Ringer's (Lr) 1,000 mls @ 125 mls/hr IVCONT .Q8H [facility] Last Infusion: 05/21/22 08:40 Dose: 0 mls/hr Documented By: MANDY Insulin Human Lispro (Insulin Lispro 100 Unit/Ml 3 Ml Vial) 0 unit SUBCUT QIDACHS [facility]; Protocol Last Admin: 05/21/22 08:03 Dose: Not Given Documented By: MANDY Non-Admin Reason: No Insulin Coverage Latanoprost (Latanoprost 0.005 % Ophth Kathy 2.5 Ml Drops) 1 drop EYE-RIGHT DAILY@1700 [facility] Last Admin: 05/20/22 16:41 Dose: 1 drop Documented By: MANDY Magnesium Oxide (Magnesium Oxide 400 Mg Tablet) 400 mg PO DAILY [facility] Last Admin: 05/21/22 10:03 Dose: Not Given Documented By: MANDY Non-Admin Reason: pt refused. MD portillo Melatonin (Melatonin 3 Mg Tablet) 6 mg PO BEDTIME PRN PRN Reason: Insomnia Last Admin: 05/20/22 19:41 Dose: 6 mg Documented By: ANTONY Omeprazole (Omeprazole 40 Mg Capsule.) 40 mg PO BID@0630,1630 [facility] Last Admin: 05/21/22 05:30 Dose: Not Given Documented By: NATACHA Non-Admin Reason: Patient Refused Ondansetron HCl (Ondansetron Hcl 4 Mg/2 Ml Vial) 4 mg IVPUSH Q8H PRN PRN Reason: Nausea and Vomiting Polyethylene Glycol (Polyethylene Glycol 3350 17 Gm Powd.Pack) 17 gm PO DAILY [facility] Last Admin: 05/21/22 10:02 Dose: Not Given Documented By: MANDY Non-Admin Reason: pt refused. aware Sodium Chloride (0.9 % Sodium Chloride Flush 3 Ml Syringe) 3 ml IVFLUSH QSHIFT [facility] Last Admin: 05/21/22 08:16 Dose: 3 ml Documented By: MANDY Labs 05/21/22 06:15 05/21/22 06:15 Labs: Laboratory Results - last 24 hr 05/20/22 05/20/22 05/20/22 11:10 15:40 19:36 MCV MCH MCHC RDW Plt Count MPV Absolute Nucleated RBC Nucleated RBC % (auto) Anion Gap Estim Creat Clear Calc Estimated GFR POC Glucose 101 101 119 H Random Glucose Calcium Phosphorus Magnesium 05/21/22 05/21/22 05/21/22 06:15 06:15 07:19 MCV 90.1 MCH 30.1 MCHC 33.4 RDW 15.9 Plt Count 46 L MPV 14.1 H Absolute Nucleated RBC 0.000 Nucleated RBC % (auto) 0.0 Anion Gap 15 Estim Creat Clear Calc 103.2 Estimated GFR > 60 POC Glucose 96 Random Glucose 87 Calcium 7.8 L Phosphorus 3.6 Magnesium 1.3 L* Assessment and Plan (1) Vomiting: Status: Acute (2) Unintentional weight loss: Status: Acute (3) Hypocalcemia: Status: Acute Plan d#5 66yo M long-term resident of [facility] with paroxysmal AF not on AC due to hx upper GI, CHF, BPH, COPD, DM2, GERD, hypothyroidism, depression, ITP, PAD, L eye blindness, gout presenting with ongoing nausea vomiting of several months duration, noted to have mild hypokalemia and anterior lateral ST changes diagnosed with obstructing esophageal mass # esophageal mass - with intractable N/V for months associated with weight loss - barium swallow done at [facility] showed esophageal mass extending towards GE junction causing high-grade stricture and partial obstruction and mild esophageal dysmotility - EGD 05/18: obstructing GE junction mass; biopsies done- high-grade dysplasia with no underlying dysplasia; suspect sampling limitation given appearance of mass on EGD; immunostains pending; if immunostains consisent with dysplasia without neoplasia, will need EUS for staging + endoscopic resection; if adenoCA confirmed will need Surgical Oncology; will obtain CT chest with IV contrast for staging - continue PPI - advance to pureed diet and Ensure; if unable to meet calorie needs PO, will need [place] tube for tube feeds until definitive treatment plan in place; nutrition consultation # MSSA UTI - changed from IV ceftriaxone to doxycycline, on d#2 # hypokalemia - replete PO, recheck in AM # hypoMg - replete IV, recheck in AM # hypocalcemia - PO Ca replacement, recheck in AM ? # constipation - MiiraLax #DM2 - hold basal insulin, continue correction-dose lispro # HTN - continue carvedilol, hold lisinopril + furosemide # paroxysmal AF - continue carvedilol - no AC due to bleeding in past # unspecified CHF - not in acute exacerbation; hold furosemide as above # mood disorder - escitalopram # chronic normocytic anemia - Hb stable # ITP - platelet count stable # GERD - PPI # PAD - hold pentoxifylline # hx gout - colchine prn # VTE ppx: SCDs # dispo: LTC In my clinical judgment, the patient requires continued inpatient hospitalization for the following reasons: feeding plan, IV electrolyte repletion Time Spent With Patient Time: Total time managing care of this patient today __40__ minutes. Quality Stroke Does the patient have a stroke diagnosis?: No VTE Prior VTE?: No VTE Risk Level:: Medical - moderate - high VTE Device Contraindication: N/A - Device Ordered VTE Drug Contraindication: Treatment Not Indicated
[2022-05-21] MEDS: Potassium Chloride Packet 20 MEQ PACKET 40 MEQ PO (11:22)
[2022-05-21 11:31] LABS: Glucose, Whole Blood 140 mg/dL (60-115)
--- NOTE | 2022-05-21 13:21 | PC.NURSE ---
pt refused morning medications - MD aware. however pt did take PO potassium replacement due to irritation of IV replacement.
[2022-05-21] MEDS: iohexoL 350 MG/ML 100 ML INFUS..BTL IV (15:29)
[2022-05-21 16:00] VITALS: BP 108/68; PULSE 61; RESP 20; TEMP 36.8; O2SAT 95
[2022-05-21 16:46] LABS: Glucose, Whole Blood 82 mg/dL (60-115)
[2022-05-21] MEDS: Latanoprost 0.005 % Ophth Sol 2.5 ML DROPS 1 DROP EYE-RIGHT (17:04)
--- NOTE | 2022-05-21 17:11 | PC.NURSE ---
this nurse went to give pt 16:30 [facility], pt agrees to take pill however when pt thought nurse wasn't paying attention he threw the pill in the trash. when asked did you not want to take your pill? it's ok if you don't want to but you have to let me know so i'm not documenting that you're taking it in which pt replied oh i didn't mean to, i took it but it just spit it out .
[2022-05-21] MEDS: Melatonin 3 MG TABLET 6 MG PO (20:07)
[2022-05-21 20:13] LABS: Glucose, Whole Blood 100 mg/dL (60-115)
[2022-05-21 23:49] VITALS: PULSE 67
[2022-05-22] MEDS: 0.9 % Sodium Chloride Flush 3 ML SYRINGE IVFLUSH (00:57)
[2022-05-22] MEDS: Doxycycline Hyclate 100 MG in 0.9 % Sodium Chloride 250 ML 166.67 MG IV ×2 (02:59→15:55)
[2022-05-22 07:29] LABS: Glucose, Whole Blood 101 mg/dL (60-115)
[2022-05-22 07:32] LABS: Hematocrit 31.4 % (42.0-52.0); Hemoglobin 10.7 g/dl (14.0-18.0); Mean Corpuscular HGB Conc 34.1 g/dl (31.0-36.0); Mean Corpuscular Hemoglobin 30.4 pg (27.0-33.0); Mean Corpuscular Volume 89.2 fL (80.0-98.0); Mean Platelet Volume 13.9 fL (9.4-12.4); Red Blood Count 3.52 X10*6/uL (4.60-5.80); White Blood Count 4.5 X10*3/uL (4.8-10.8)
[2022-05-22 07:33] LABS: Platelet Count 48 X10*3/uL (160-400)
[2022-05-22 07:36] LABS: Anion Gap 11 (12-20); Blood Urea Nitrogen 4 mg/dL (9-16); Calcium 7.7 mg/dL (8.4-10.2); Carbon Dioxide 28 mmol/L (22-29); Chloride 107 mmol/L (96-108); Creatinine Clr Calc Pharmacy 112.9; Estimated Glomerular Filt Rate > 60; Glucose Random 92 mg/dL (60-115); Magnesium 1.5 mg/dL (1.6-2.6); Sodium 143 mmol/L (135-145)
[2022-05-22 08:00] VITALS: BP 133/64; PULSE 67; RESP 20; TEMP 36.1; O2SAT 100
--- NOTE | 2022-05-22 08:26 | PC.NURSE ---
pt refused camera, bed and chair alarm and requested for door to be closed. this nurse educated the pt the rational of these safety measure we take and pt still refused. pt A&O x 4
--- NOTE | 2022-05-22 08:43 | PC.NURSE ---
pt is refusing potassium chloride drink states it makes me puke, why would i take something that makes me puke. I don't want the IV because it [place]. I will take the pill form reached out to MD and relayed message MD states pill form contraindicated with esophageal stricture , this nurse explained message to pt and pt refused both. pt continues to refuse other PO medications. pt also is refusing all safty measures: camera, chair alarm, red bracelet, bed alarm and states I am not a high fall risk .
--- NOTE | 2022-05-22 10:26 | PM.GIPN ---
Subjective Subjective Date of Service: 05/22/22 Interval History: Reports tolerated pureed diet without any difficulty. Also reports constipation. Critical Care Time (minutes): 0 Physical Exam Vital Signs: Vital Signs: Last Vital Signs Temp 97.0 F 05/22/22 08:00 Pulse 67 05/22/22 08:00 Resp 20 05/22/22 08:00 BP 133/64 05/22/22 08:00 Pulse Ox 100 05/22/22 08:00 O2 Del Method Room Air 05/22/22 08:00 O2 Flow Rate 6 05/18/22 11:15 BMI result Body Mass Index 21.9 Gen appear: NAD Abd: soft, nontender, mildly distended Objective Data Labs 05/22/22 06:34 05/22/22 06:34 Labs: Laboratory Results - last 24 hr 05/21/22 05/21/22 05/21/22 11:26 16:38 20:04 WBC RBC Hgb Hct MCV MCH MCHC RDW Plt Count MPV Absolute Nucleated RBC Nucleated RBC % (auto) Sodium Potassium Chloride Carbon Dioxide Anion Gap BUN Creatinine Estim Creat Clear Calc Estimated GFR POC Glucose 140 H 82 100 Random Glucose Calcium Magnesium Albumin 05/22/22 05/22/22 05/22/22 06:34 06:34 07:20 WBC 4.5 L RBC 3.52 L Hgb 10.7 L Hct 31.4 L MCV 89.2 MCH 30.4 MCHC 34.1 RDW 16.0 Plt Count 48 L MPV 13.9 H Absolute Nucleated RBC 0.000 Nucleated RBC % (auto) 0.0 Sodium 143 Potassium 3.0 L Chloride 107 Carbon Dioxide 28 Anion Gap 11 L BUN 4 L Creatinine 0.64 Estim Creat Clear Calc 112.9 Estimated GFR > 60 POC Glucose 101 Random Glucose 92 Calcium 7.7 L Magnesium 1.5 L Albumin 3.0 L Microbiology Microbiology Results: Microbiology 05/17/22 15:02 Blood - Venous Blood Culture - Preliminary No growth after 48 hours. 05/17/22 14:42 Blood - Venous Blood Culture - Preliminary No growth after 48 hours. 05/17/22 18:14 Urine clean catch - Urine [facility] Urine Culture - Final Staphylococcus aureus Procedures Date of Service Date of Service: 05/22/22 Progress Note: A&P Assessment and plan (1) Dysphagia: Status: Acute (2) Esophageal stricture: Status: Acute (3) Esophageal mass: Status: Acute Plan As previously mentioned very concerned for underlying adeno and suspect may have had inadequate sampling due to location and obstruction by the tumor. Immunostains pending. - Again discussed wth the pt that he continues to be at risk for complete esophageal obstruction and urged him to consider [place] tube even though he is tolerating pureed diet for now. - Please consult Onc - Reports constipation x 1 week. Please add bowel regimen - We will also send out an outpatient referral to tertiary care center for ? EUS +/- endoscopic resection. Joyce (HCP) updated. Time Spent With Patient Time: Total time managing care of this patient today ____ minutes. Quality Stroke Does the patient have a stroke diagnosis?: No VTE Prior VTE?: No VTE Risk Level:: Medical - moderate - high VTE Device Contraindication: N/A - Device Ordered VTE Drug Contraindication: Treatment Not Indicated
--- NOTE | 2022-05-22 10:36 | MHC.CLN ---
RE: CONSULT PT IS MODERATELY MALNOURISHED SEE FULL CLINICAL NUTRITION ASSESSMENT DATED 05/19/22 DIET ADVANCED TO PUREED-PT TOLERATED PUREED DIET X 1 DAY PT RECEIVING ENSURE PLUS HIGH PROTEIN TID TO INCREASE KCALS HOWEVER NOTED PT VOMITED AFTER DRINKING ENSURE AND REPORTED HE DOESN'T LIKE THE TASTE. RECOMMEND DISCUSSION REGARDING ALTERNATIVE NUTRITION I.E.PEG PLACEMENT R/T CHRONIC N/V AND DX MALNUTRITION CONSULT RD IF PEG NEEDED DURING ADMISSION CONTINUE TO MONITOR PO INTAKE
--- NOTE | 2022-05-22 10:39 | MHC.CM.PN ---
Per ROUNDS discussion, Patient is not yet medically cleared for dc (Nutritional and Oncology Consults are pending); returning to LT @ [facility] is the goal and CM will continue to follow.
[2022-05-22] MEDS: Magnesium Sulfate/H2O 2 GM/50 ML PIGGYBACK IV (11:06)
--- NOTE | 2022-05-22 11:07 | HO.PM.IMPN ---
Subjective Subjective Date of Service: 05/22/22 Interval History: tolerating pureed diet refusing KCl liquid or IV no abd pain Review of Systems Review of Systems: Yes all other systems are reviewed and are negative Physical Exam Vital Signs: Vital Signs: Last Vital Signs Temp 97.0 F 05/22/22 08:00 Pulse 67 05/22/22 08:00 Resp 20 05/22/22 08:00 BP 133/64 05/22/22 08:00 Pulse Ox 100 05/22/22 08:00 O2 Del Method Room Air 05/22/22 08:00 O2 Flow Rate 6 05/18/22 11:15 BMI result Body Mass Index 21.9 Gen: in no acute distress HEENT: sclera anicteric, :L eye blind, moist mucus membranes Neck: supple Lungs: clear to auscultation bilaterally Heart: regular rate and rhythm, no murmurs Abd: soft, non-tender, non-distended Ext: no edema Skin: warm/well-perfused Neuro: alert and oriented x3, no focal findings Psych: appropriate affect Objective Data Active Medications Acetaminophen (Acetaminophen Supp 650 Mg Supp.Rect) 650 mg OR Q6H PRN PRN Reason: Pain, Mild (Pain Scale 1-3) Calcium Carbonate (Calcium Carbonate 500 Mg Tablet) 500 mg PO TID [facility] Last Admin: 05/22/22 10:08 Dose: Not Given Documented By: MANDY Non-Admin Reason: pt refused. AWARE Carvedilol (Carvedilol 6.25 Mg Tablet) 6.25 mg PO BID [facility]; Protocol Last Admin: 05/22/22 10:08 Dose: Not Given Documented By: MANDY Non-Admin Reason: pt refused. AWARE Erythromycin (Erythromycin Base 0.5% Oph Oin 1 Gm Tube) 0.25 cm EYE-LEFT MOTH@0900 [facility] Last Admin: 05/22/22 10:08 Dose: Not Given Documented By: MANDY Non-Admin Reason: pt refused. AWARE Escitalopram Oxalate (Escitalopram Oxalate 10 Mg Tablet) 10 mg PO DAILY [facility] Last Admin: 05/22/22 10:08 Dose: Not Given Documented By: MANDY Non-Admin Reason: pt refused. AWARE Fluticasone Propionate (Fluticasone Propionate Nasal 16 Gm [place]) 2 spray NOSTRIL-B DAILY [facility] Last Admin: 05/22/22 10:08 Dose: Not Given Documented By: MANDY Non-Admin Reason: pt refused. MD WOOTEN Glucose (Glucose Gel 15 Gm Gel..Gram.) 15 gm PO Q15M PRN; Protocol PRN Reason: per Hypoglycemia Standing Ord. Dextrose (D10) 250 mls @ 750 mls/hr IV Q15M PRN; Protocol PRN Reason: per Hypoglycemia Standing Ord. Doxycycline Hyclate 100 mg/ (Sodium Chloride) 250 mls @ 166.67 mls/hr IV Q12H [facility] Last Infusion: 05/22/22 05:30 Dose: 0 mls/hr Documented By: EZIO Potassium Chloride/Sodium Chloride (Kcl 20 Meq In 0.45% Sod) 20 meq in 1,000 mls @ 100 mls/hr IVCONT .Q10H [facility] Stop: 05/23/22 05:59 Insulin Human Lispro (Insulin Lispro 100 Unit/Ml 3 Ml Vial) 0 unit SUBCUT QIDACHS [facility]; Protocol Last Admin: 05/22/22 07:33 Dose: Not Given Documented By: MANDY Non-Admin Reason: No Insulin Coverage Latanoprost (Latanoprost 0.005 % Ophth Kathy 2.5 Ml Drops) 1 drop EYE-RIGHT DAILY@1700 [facility] Last Admin: 05/21/22 17:04 Dose: 1 drop Documented By: MANDY Magnesium Oxide (Magnesium Oxide 400 Mg Tablet) 400 mg PO BID [facility] Last Admin: 05/22/22 10:09 Dose: Not Given Documented By: MANDY Non-Admin Reason: pt refused. MD WOOTEN Melatonin (Melatonin 3 Mg Tablet) 6 mg PO DAILY@1800 PRN PRN Reason: Insomnia Omeprazole (Omeprazole 40 Mg Capsule.) 40 mg PO BID@0630,1630 [facility] Last Admin: 05/22/22 05:49 Dose: Not Given Documented By: EZIO Non-Admin Reason: Patient Refused Ondansetron HCl (Ondansetron Hcl 4 Mg/2 Ml Vial) 4 mg IVPUSH Q8H PRN PRN Reason: Nausea and Vomiting Polyethylene Glycol (Polyethylene Glycol 3350 17 Gm Powd.Pack) 17 gm PO DAILY [facility] Last Admin: 05/22/22 10:09 Dose: Not Given Documented By: MANDY Non-Admin Reason: pt refused. MD AWARE Sodium Biphosphate/Sodium Phosphate (Sodium Phosphate,[place]-Dibasic 133 Ml Enema) 133 ml OR ONCE XI Sodium Chloride (0.9 % Sodium Chloride Flush 3 Ml Syringe) 3 ml IVFLUSH QSHIFT XI Last Admin: 05/22/22 08:41 Dose: Not Given Documented By: MANDY Non-Admin Reason: IV leaking Labs 05/22/22 06:34 05/22/22 06:34 Labs: Laboratory Results - last 24 hr 05/21/22 05/21/22 05/21/22 11:26 16:38 20:04 MCV MCH MCHC RDW Plt Count MPV Absolute Nucleated RBC Nucleated RBC % (auto) Anion Gap Estim Creat Clear Calc Estimated GFR POC Glucose 140 H 82 100 Random Glucose Calcium Magnesium Albumin 05/22/22 05/22/22 05/22/22 06:34 06:34 07:20 MCV 89.2 MCH 30.4 MCHC 34.1 RDW 16.0 Plt Count 48 L MPV 13.9 H Absolute Nucleated RBC 0.000 Nucleated RBC % (auto) 0.0 Anion Gap 11 L Estim Creat Clear Calc 112.9 Estimated GFR > 60 POC Glucose 101 Random Glucose 92 Calcium 7.7 L Magnesium 1.5 L Albumin 3.0 L Assessment and Plan (1) Vomiting: Status: Acute (2) Unintentional weight loss: Status: Acute (3) Hypocalcemia: Status: Acute Plan d#6 66yo M long-term resident of [facility] with paroxysmal AF not on AC due to hx upper GI, CHF, BPH, COPD, DM2, GERD, hypothyroidism, depression, ITP, PAD, L eye blindness, gout presenting with ongoing nausea vomiting of several months duration, noted to have mild hypokalemia and anterior lateral ST changes diagnosed with obstructing esophageal mass # esophageal mass - with intractable N/V for months associated with weight loss - barium swallow done at [facility] showed esophageal mass extending towards GE junction causing high-grade stricture and partial obstruction and mild esophageal dysmotility - EGD 05/18: obstructing GE junction mass; biopsies done- high-grade dysplasia with no underlying dysplasia; suspect sampling limitation given appearance of mass on EGD; immunostains pending; if immunostains consisent with dysplasia without neoplasia, will need EUS for staging + endoscopic resection; if adenoCA confirmed will need Surgical Oncology; will obtain CT chest with IV contrast for staging + consult Medical Oncology - continue PPI - advance to pureed diet and Ensure; if unable to meet calorie needs PO, will need NJ tube for tube feeds until definitive treatment plan in place; nutrition consultation # MSSA UTI - changed from IV ceftriaxone to doxycycline, on d#3 # hypokalemia - will add to maintenance fluids and recheck BMP in AM # hypoMg - replete IV, recheck BMP in AM # hypocalcemia - repleted ? # constipation - MiiraLax, enema #DM2 - hold basal insulin, continue correction-dose lispro # HTN - continue carvedilol, hold lisinopril + furosemide # paroxysmal AF - continue carvedilol - no AC due to bleeding in past + ITP # unspecified CHF - not in acute exacerbation; hold furosemide as above # mood disorder - escitalopram # chronic normocytic anemia - Hb stable # ITP - platelet count stable # GERD - PPI # PAD - hold pentoxifylline # hx gout - colchine prn # VTE ppx: SCDs # dispo: LTC In my clinical judgment, the patient requires continued inpatient hospitalization for the following reasons: feeding plan, IV electrolyte repletion Time Spent With Patient Time: Total time managing care of this patient today __45__ minutes. Quality Stroke Does the patient have a stroke diagnosis?: No VTE Prior VTE?: No VTE Risk Level:: Medical - moderate - high VTE Device Contraindication: N/A - Device Ordered VTE Drug Contraindication: Treatment Not Indicated
[2022-05-22 11:33] LABS: Glucose, Whole Blood 95 mg/dL (60-115)
[2022-05-22] MEDS: KCl 20 mEq in 0.45% Sod 20 MEQ/1,000 ML IV.SOLN 100 MEQ IVCONT ×2 (12:47→23:47)
[2022-05-22 15:20] VITALS: BP 134/60; PULSE 78; RESP 18; TEMP 37.1; O2SAT 98
[2022-05-22 16:17] LABS: Glucose, Whole Blood 86 mg/dL (60-115)
[2022-05-22] MEDS: Melatonin 3 MG TABLET 6 MG PO (17:41)
[2022-05-22] MEDS: Latanoprost 0.005 % Ophth Sol 2.5 ML DROPS 1 DROP EYE-RIGHT (17:41)
[2022-05-22 19:35] VITALS: BP 136/64; PULSE 71; RESP 18; TEMP 37; O2SAT 100
[2022-05-22 20:16] LABS: Glucose, Whole Blood 94 mg/dL (60-115)
[2022-05-23] MEDS: Doxycycline Hyclate 100 MG in 0.9 % Sodium Chloride 250 ML 166.67 MG IV ×2 (03:27→15:59)
[2022-05-23 07:20] LABS: Anion Gap 16 (12-20); Blood Urea Nitrogen 4 mg/dL (9-16); Calcium 7.4 mg/dL (8.4-10.2); Carbon Dioxide 22 mmol/L (22-29); Chloride 108 mmol/L (96-108); Creatinine Clr Calc Pharmacy 111.2; Estimated Glomerular Filt Rate > 60; Glucose Random 75 mg/dL (60-115); Magnesium 1.7 mg/dL (1.6-2.6); Potassium 3.7 mmol/L (3.3-5.1); Sodium 142 mmol/L (135-145)
[2022-05-23] MEDS: Fluticasone Propionate Nasal 16 GM SPRAY 2 SPRAY NOSTRIL-B (07:39)
[2022-05-23 07:42] LABS: Glucose, Whole Blood 75 mg/dL (60-115)
[2022-05-23 07:44] VITALS: BP 125/60; PULSE 65; RESP 16; TEMP 36.1; O2SAT 100
--- NOTE | 2022-05-23 09:51 | P.CNHO_ITS ---
Subjective - Subjective Chief complaint: Consult for: Esophageal mass. Patient: new to practice Consult date: 05/23/22 Requesting Physician: [place] Primary Care Provider: NAVNEET CAPUTO Medical Summary: DIAGNOSIS: ESOPHAGEAL MASS: HIGH-GRADE DYSPLASIA. HPI - Consult Narrative Reason for consult: Consult for: Esophageal mass. Narrative: Chief Complaint: Intractable nausea vomiting. Darren Deleon is a 67 year old gentleman, with past medical history significant for paroxysmal atrial fibrillation, congestive heart failure, BPH, COPD, insulin-dependent type 2 diabetes mellitus, hypothyroidism, depression, ITP, blindness of left eye, gout history of upper GI bleed resident of [facility] presented to [facility] due to intractable nausea vomiting of several months duration, patient has been admitted in the past with similar symptoms in November 2021 subsequently underwent cholecystectomy in January 2022, as per patient he is unable to keep food down he vomits all kind of food except able to tolerate lollipops, he denies associated abdominal pain he, no fevers, no chills, no diarrhea he has lost 70 lb since November, he feels hungry, tries to eat but throws up every time he eats, workup in the ER showed positive urinalysis, hypokalemia otherwise normal renal function, chronic thrombocytopenia. Abdomen and pelvic CT showed no evidence of metastatic disease in abdomen or pelvis, cirrhosis with portal hypertension with extensive perisplenic varices, some minimal tree-in-bud opacities in the right lung base and 6 mm pleural based left lower lobe nodule. Patient also noted to have large stool ball in the rectum, small left inguinal hernia containing only fat patient is being followed closely by Gastroenterology as outpatient for ongoing chronic nausea and vomiting. Patient admitted to medical floor due to persistent intractable nausea vomiting, hypokalemia and significant weight loss. He was also noted to have anterior lateral ST changes on EKG patient denies chest pain, noted to have normal troponin. - barium swallow done at [facility] showed esophageal mass extending towards GE junction causing high-grade stricture and partial obstruction and mild esophageal dysmotility - EGD 05/18: Obstructing GE junction mass; biopsies done- high-grade dysplasia with no underlying dysplasia; suspect sampling limitation given appearance of mass on EGD; immunostains pending; If immunostains consisent with dysplasia without neoplasia, will need EUS for staging + endoscopic resection at [facility]; if adenoCA confirmed will need Surgical Oncology; Review of Systems Review of Systems: General no headache no dizziness no fever chills. CVS no chest pain, no palpitation. Respiratory no cough no sob Gastrointestinal intractable nausea vomiting Musculoskeletal no pain Yes all other systems are reviewed and are negative [facility] Medical History: Atrial fibrillation Blindness of left eye BPH (benign prostatic hyperplasia) CHF (congestive heart failure) COPD (chronic obstructive pulmonary disease) Diabetes Diverticulosis Gallbladder sludge GERD (gastroesophageal reflux disease) History of COVID-19 Hypothyroid Major depression Osteoarthritis Resides in senior care facility 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 Strain of left knee Thrombocytopenia Family History: Maternal Grandmother Diabetes Mother Oncology Screenings - ECOG Performance Status ECOG Performance Status: 1 [facility] Medical History: Medical History (Last Reviewed 05/17/22 @ 18:36 by Mary Troncoso MD) Atrial fibrillation Blindness of left eye BPH (benign prostatic hyperplasia) CHF (congestive heart failure) COPD (chronic obstructive pulmonary disease) Diabetes Diverticulosis Gallbladder sludge GERD (gastroesophageal reflux disease) History of COVID-19 Hypothyroid Major depression Osteoarthritis Resides in senior care facility 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 Strain of left knee Thrombocytopenia Family History: Family History (Last Reviewed 05/17/22 @ 18:36 by Mary Troncoso MD) Maternal Grandmother Diabetes Mother Diabetes Surgical History: Surgical History (Last Reviewed 05/17/22 @ 18:36 by Mary Troncoso MD) History of esophagogastroduodenoscopy (EGD) Hx of colonoscopy Hx of eye surgery Social History: Social History (Last Reviewed 05/17/22 @ 18:36 by Mary Troncoso MD) Living Situation History: Household Members: None Household Members Other:: intermediate Housing: Jail Housing Other:: [facility] Do you presently have visiting nurse or other home services: Yes Alcohol History Details: Currently Displaying Signs/Symptoms of Alcohol Withdrawal: No Tobacco History: Patient Tobacco Use Status: Former Tobacco user Tobacco use type: Cigarette Years Smoked: quit 10 years ago Smoked in Last 30 Days: No Smoke Quit Date: 10 yrs ago Substance Use History: Use of substances other than those prescribed or required for medical reasons : No Currently Displaying Signs/Symptoms of Drug Intoxication Withdrawal: No Domestic Abuse History: Have you been hit, kicked, punched, or otherwise hurt by someone within the past year? If so, by whom?: No Do you feel safe in your current relationship?: No Current Relationship Is there a partner from a previous relationship who is making you feel unsafe now?: No Advance Directives: Advance Directives: Yes Advance Directives on File: Yes Advance Directives Date on File: 02/20/20 Homicidal Assessment: Do you have thoughts of harming others: None Do you have a plan to hurt others: No Plan Nutrition Assessment: Recently lost weight without trying: Unsure How much weight loss: 14-23 pounds Eating poorly because of decreased appetite: Yes Nutrition screen score: 5 Nutrition Risks: Acute nausea or vomiting Occupation Assessmet: service: No Current occupational status: retired Home Medications and Allergies Current Medications: Current Medications Acetaminophen (Acetaminophen Supp 650 Mg Supp.Rect) 650 mg [place] Q6H PRN PRN Reason: Pain, Mild (Pain Scale 1-3) Calcium Carbonate (Calcium Carbonate 500 Mg Tablet) 500 mg PO TID [facility] Last Admin: 05/23/22 07:36 Dose: Not Given Carvedilol (Carvedilol 6.25 Mg Tablet) 6.25 mg PO BID [facility]; Protocol Last Admin: 05/23/22 07:36 Dose: Not Given Erythromycin (Erythromycin Base 0.5% Oph Oin 1 Gm Tube) 0.25 cm EYE-LEFT MOTH@0900 [facility] Last Admin: 05/22/22 10:08 Dose: Not Given Escitalopram Oxalate (Escitalopram Oxalate 10 Mg Tablet) 10 mg PO DAILY [facility] Last Admin: 05/23/22 07:36 Dose: Not Given Fluticasone Propionate (Fluticasone Propionate Nasal 16 Gm [place]) 2 spray NOSTRIL-B DAILY [facility] Last Admin: 05/23/22 07:39 Dose: 2 spray Glucose (Glucose Gel 15 Gm Gel..Gram.) 15 gm PO Q15M PRN; Protocol PRN Reason: per Hypoglycemia Standing Ord. Dextrose (D10) 250 mls @ 750 mls/hr IV Q15M PRN; Protocol PRN Reason: per Hypoglycemia Standing Ord. Doxycycline Hyclate 100 mg/ (Sodium Chloride) 250 mls @ 166.67 mls/hr IV Q12H [facility] Last Infusion: 05/23/22 05:20 Dose: Infused Insulin Human Lispro (Insulin Lispro 100 Unit/Ml 3 Ml Vial) 0 unit SUBCUT QIDACHS [facility]; Protocol Last Admin: 05/23/22 07:24 Dose: Not Given Latanoprost (Latanoprost 0.005 % Ophth Kathy 2.5 Ml Drops) 1 drop EYE-RIGHT DAILY@1700 [facility] Last Admin: 05/22/22 17:41 Dose: 1 drop Magnesium Oxide (Magnesium Oxide 400 Mg Tablet) 400 mg PO BID [facility] Last Admin: 05/23/22 07:37 Dose: Not Given Melatonin (Melatonin 3 Mg Tablet) 6 mg PO DAILY@1800 PRN PRN Reason: Insomnia Last Admin: 05/22/22 17:41 Dose: 6 mg Omeprazole (Omeprazole 40 Mg Capsule.Dr) 40 mg PO BID@0630,1630 [facility] Last Admin: 05/23/22 05:46 Dose: Not Given Ondansetron HCl (Ondansetron Hcl 4 Mg/2 Ml Vial) 4 mg IVPUSH Q8H PRN PRN Reason: Nausea and Vomiting Polyethylene Glycol (Polyethylene Glycol 3350 17 Gm Powd.Pack) 17 gm PO DAILY [facility] Last Admin: 05/23/22 07:37 Dose: Not Given Sodium Biphosphate/Sodium Phosphate (Sodium Phosphate,[place]-Dibasic 133 Ml Enema) 133 ml [place] ONCE [facility] Sodium Chloride (0.9 % Sodium Chloride Flush 3 Ml Syringe) 3 ml IVFLUSH QSHIFT [facility] Last Admin: 05/23/22 07:35 Dose: Not Given Home Medications Medication Instructions Recorded Confirmed Type atorvastatin 10 mg tablet 1 tab PO DAILY@1700 02/21/20 05/17/22 History carvedilol 12.5 mg tablet 1 tab PO BID@0800,1700 02/21/20 05/17/22 History citalopram 10 mg tablet 1 tab PO DAILY 02/21/20 05/17/22 History citalopram 20 mg tablet 1 tab PO DAILY 02/21/20 05/17/22 History furosemide 20 mg tablet 1 tab PO DAILY 02/21/20 05/17/22 History hydroxyzine HCl 25 mg tablet 25 mg PO DAILY 02/21/20 05/17/22 History latanoprost 0.005 % eye drops 1 drp ophthalmic-Right DAILY@1700 02/21/20 05/17/22 History acetaminophen 500 mg tablet 1,000 mg PO TID@0800,1300,1700 12/07/21 05/17/22 History calcium carbonate 200 mg calcium 200 mg PO TID@0800,1200,1700 12/07/21 05/17/22 History (500 mg) chewable tablet (Calcium Antacid) cholecalciferol (vitamin D3) 1,250 1,250 mcg PO QMONTH 12/07/21 05/17/22 History mcg (50,000 unit) capsule erythromycin 5 mg/gram (0.5 %) eye 1 appl ophthalmic-Left MOTH@0900 12/07/21 05/17/22 History ointment insulin aspart U-100 100 unit/mL See Protocol subcut QIDACHS 12/07/21 05/17/22 History subcutaneous solution (Novolog U-100 Insulin aspart) insulin detemir U-100 100 unit/mL 10 unit subcut DAILY 12/07/21 05/17/22 History subcutaneous solution (Levemir U-100 Insulin) lisinopril 5 mg tablet 1 tab PO DAILY 12/07/21 05/17/22 History melatonin 5 mg tablet 5 mg PO DAILY@1700 12/07/21 05/17/22 History sucralfate 1 gram tablet 1 g PO QID 12/20/21 05/17/22 History glucagon 1 mg solution for 1 mg subcut Q20M PRN Hypoglycemia 03/28/22 05/17/22 History injection fluticasone propionate 50 2 spray intranasal DAILY 04/24/22 05/17/22 History mcg/actuation nasal spray,suspension magnesium oxide 400 mg PO DAILY 05/17/22 05/17/22 History pentoxifylline 400 mg 400 mg PO BID 05/17/22 05/17/22 History tablet,extended release Allergies Allergy/AdvReac Type Severity Reaction Status Date / Time colchicine Allergy Unknown diarrhea Verified 05/17/22 13:56 Physical Exam Vital signs: Vital Signs Temp 96.9 F 05/23/22 07:44 Pulse 65 05/23/22 07:44 Resp 16 05/23/22 07:44 BP 125/60 05/23/22 07:44 Pulse Ox 100 05/23/22 07:44 O2 Del Method Room Air 05/23/22 07:44 O2 Flow Rate 6 05/18/22 11:15 Intake & Output 05/22/22 05/23/22 05/23/22 18:59 06:59 18:59 Intake Total 1602.083 / 2830.416 1228.333 / 2830.416 Balance 1602.083 / 2830.416 1228.333 / 2830.416 Intake: Intake, Oral Amount 600 / 600 Intake, IV Amount 1002.083 / 2230.416 1228.333 / 2230.416 Doxycycline Hyclate 100 mg In 0 250 / 500 250 / 500 .9 % Sodium Chloride 250 ml @ 166.67 mls/hr IV Q12H XI Rx#: [id number] Magnesium Sulfate/H2O 2 gm In 50 / 50 50 ml @ 25 mls/hr IV ONCE ONE Rx#:[id number] KCl 20 mEq in 0.45% Sod 20 meq 308.333 / 1286.666 978.333 / 1286.666 In 1,000 ml @ 100 mls/hr IVCONT .Q10H XI Rx#:[id number] Lactated Ringers 1,000 ml @ 125 393.75 / 393.75 mls/hr IVCONT .Q8H XI Rx#: [id number] Other: Breakfast % Eaten 50% Lunch % Eaten 25% Number of Incontinent Voids 2 1 Urine Color Yellow Weight 73.3 kg - Constitutional Present: mild distress - Routine HEENT Exam Head: Present: normal inspection ENT: Present: mucous membranes moist - Routine Neck Exam Present: supple - Routine Respiratory Exam Present: CTAB - Routine Cardiovascular Exam Cardiovascular: Present: RRR, S1, S2 - Routine Abdominal Exam Present: normal bowel sounds, nontender - Routine Extremities Exam Present: nontender - Routine Skin Exam Present: intact - Routine Neurological Exam Present: alert, oriented X3 - Detailed Neurological Exam: Coma Scale Eye Opening: Spontaneous (4) Verbal Response: Oriented (5) - Routine Psychiatric Exam Present: normal affect Hem/Onc Consult Result - Labs CBC & Chem 7: 05/25/22 06:10 05/28/22 05:33 Labs: BMP 05/23/22 06:37 Sodium 142 Potassium 3.7 D Chloride 108 Carbon Dioxide 22 BUN 4 L Creatinine 0.65 Calcium 7.4 L Assessment and Plan Patient Active problem list reviewed?: Yes (1) Esophageal mass Status: Acute Assessment and plan: 67-year-old gentleman, presented with difficulty swallowing. Barium swallow done at [facility] showed esophageal mass extending towards GE junction causing high-grade stricture and partial obstruction and mild esophageal dysmotility Upper endoscopy from 05/18: Esophagus:?Upper esophagus was mildly dilated and fluid was suctioned out. At the GEJ, there was a mass that appeared to arise out of the esophagus at 39 cm and prolapsing down into the cardia. The lumen was nearly completely obstructed due to this. Scope was traversed past this with some difficulty. Stomach:? Scant heme was noted in the body. There was a small gastric polyp along the greater curvature. This was removed with forceps biopsy. On retroflexion, the mass was noted prolapsing into the cardia along the lesser curvature almost 2-3 cm in size, spontaneously bleeding. Multiple cold forceps biopsies were taken. Hemospray was applied towards the end for hemostasis. Duodenum:? Normal mucosa was noted in the whole of the examined duodenum. Biopsies were taken from duodenal bulb and second portion of the duodenum. EGD Impressions:? Obstructing GEJ mass (biopsy). PATHOLOGY: High-grade dysplasia. Obstructing GE junction mass; biopsies done- high-grade dysplasia with no underlying dysplasia; This is most likely due to sampling limitation given appearance of mass on EGD. Special immunostains are pending. PLAN: If immunostains consisent with dysplasia without neoplasia, will need EUS for staging + endoscopic resection at [facility]; Can refer to Dr. Blanco for endoscopic ultrasound-guided biopsies. If adenoCA confirmed will need thoracic Surgical Oncology. Can consult Dr. Hernandez. Proceed with CT chest with IV contrast for staging. To continue PPI Patient to have NJ tube inserted to facilitate tube feeds. Nutrition consultation for tube feed regimen. Thank you for the consult, Will follow along with you, CC: Navneet Caputo. - Time Spent With Patient Time Spent with Patient (in minutes): 30
--- NOTE | 2022-05-23 11:19 | HO.PM.IMPN ---
Subjective Subjective Date of Service: 05/23/22 Interval History: Vomited this AM Willing to undergo NJ tube placement No chest pain Physical Exam Vital Signs: Vital Signs: Last Vital Signs Temp 96.9 F 05/23/22 07:44 Pulse 65 05/23/22 07:44 Resp 16 05/23/22 07:44 BP 125/60 05/23/22 07:44 Pulse Ox 100 05/23/22 07:44 O2 Del Method Room Air 05/23/22 07:44 O2 Flow Rate 6 05/18/22 11:15 BMI result Body Mass Index 21.9 Gen: in no acute distress HEENT: sclera anicteric, L eye blind, moist mucus membranes Neck: supple Lungs: clear to auscultation bilaterally Heart: regular rate and rhythm, no murmurs Abd: soft, non-tender, non-distended Ext: no edema Skin: warm/well-perfused Neuro: alert and oriented x3, no focal findings Psych: appropriate affect Objective Data Active Medications Acetaminophen (Acetaminophen Supp 650 Mg Supp.Rect) 650 mg DE Q6H PRN PRN Reason: Pain, Mild (Pain Scale 1-3) Calcium Carbonate (Calcium Carbonate 500 Mg Tablet) 500 mg PO TID [facility] Last Admin: 05/23/22 07:36 Dose: Not Given Documented By: CARLOS Non-Admin Reason: Patient Refused Carvedilol (Carvedilol 6.25 Mg Tablet) 6.25 mg PO BID [facility]; Protocol Last Admin: 05/23/22 07:36 Dose: Not Given Documented By: CARLOS Non-Admin Reason: Patient Refused Erythromycin (Erythromycin Base 0.5% Oph Oin 1 Gm Tube) 0.25 cm EYE-LEFT MOTH@0900 [facility] Last Admin: 05/22/22 10:08 Dose: Not Given Documented By: MANDY Non-Admin Reason: pt refused. AWARE Escitalopram Oxalate (Escitalopram Oxalate 10 Mg Tablet) 10 mg PO DAILY [facility] Last Admin: 05/23/22 07:36 Dose: Not Given Documented By: CARLOS Non-Admin Reason: Patient Refused Fluticasone Propionate (Fluticasone Propionate Nasal 16 Gm [place]) 2 spray NOSTRIL-B DAILY [facility] Last Admin: 05/23/22 07:39 Dose: 2 spray Documented By: CARLOS Glucose (Glucose Gel 15 Gm Gel..Gram.) 15 gm PO Q15M PRN; Protocol PRN Reason: per Hypoglycemia Standing Ord. Dextrose (D10) 250 mls @ 750 mls/hr IV Q15M PRN; Protocol PRN Reason: per Hypoglycemia Standing Ord. Doxycycline Hyclate 100 mg/ (Sodium Chloride) 250 mls @ 166.67 mls/hr IV Q12H [facility] Last Infusion: 05/23/22 05:20 Dose: 166.67 mls/hr Documented By: EZIO Insulin Human Lispro (Insulin Lispro 100 Unit/Ml 3 Ml Vial) 0 unit SUBCUT QIDACHS [facility]; Protocol Last Admin: 05/23/22 07:24 Dose: Not Given Documented By: CARLOS Non-Admin Reason: No Insulin Coverage Latanoprost (Latanoprost 0.005 % Ophth Kathy 2.5 Ml Drops) 1 drop EYE-RIGHT DAILY@1700 [facility] Last Admin: 05/22/22 17:41 Dose: 1 drop Documented By: MANDY Magnesium Oxide (Magnesium Oxide 400 Mg Tablet) 400 mg PO BID [facility] Last Admin: 05/23/22 07:37 Dose: Not Given Documented By: CARLOS Non-Admin Reason: Patient Refused Melatonin (Melatonin 3 Mg Tablet) 6 mg PO DAILY@1800 PRN PRN Reason: Insomnia Last Admin: 05/22/22 17:41 Dose: 6 mg Documented By: MANDY Omeprazole (Omeprazole 40 Mg Capsule.Dr) 40 mg PO BID@0630,1630 [facility] Last Admin: 05/23/22 05:46 Dose: Not Given Documented By: EZIO Non-Admin Reason: Patient Refused Ondansetron HCl (Ondansetron Hcl 4 Mg/2 Ml Vial) 4 mg IVPUSH Q8H PRN PRN Reason: Nausea and Vomiting Polyethylene Glycol (Polyethylene Glycol 3350 17 Gm Powd.Pack) 17 gm PO DAILY [facility] Last Admin: 05/23/22 07:37 Dose: Not Given Documented By: CARLOS Non-Admin Reason: Patient Refused Sodium Biphosphate/Sodium Phosphate (Sodium Phosphate,[place]-Dibasic 133 Ml Enema) 133 ml DE ONCE [facility] Sodium Chloride (0.9 % Sodium Chloride Flush 3 Ml Syringe) 3 ml IVFLUSH QSHIFT [facility] Last Admin: 05/23/22 07:35 Dose: Not Given Documented By: CARLOS Non-Admin Reason: Patient Refused Labs 05/22/22 06:34 05/23/22 06:37 Labs: Laboratory Results - last 24 hr 05/22/22 05/22/22 05/22/22 11:22 15:19 19:37 Anion Gap Estim Creat Clear Calc Estimated GFR POC Glucose 95 86 94 Random Glucose Calcium Magnesium 05/23/22 05/23/22 06:37 07:32 Anion Gap 16 Estim Creat Clear Calc 111.2 Estimated GFR > 60 POC Glucose 75 Random Glucose 75 Calcium 7.4 L Magnesium 1.7 Microbiology Microbiology Results: Microbiology 05/17/22 15:02 Blood Culture - Final Blood - Venous No growth after 5 days. 05/17/22 14:42 Blood Culture - Final Blood - Venous No growth after 5 days. Assessment and Plan (1) Vomiting: Status: Acute (2) Unintentional weight loss: Status: Acute (3) Hypocalcemia: Status: Acute Plan d#7 66yo M long-term resident of [facility] with paroxysmal AF not on AC due to hx upper GI, CHF, BPH, COPD, DM2, GERD, hypothyroidism, depression, ITP, PAD, L eye blindness, gout presenting with ongoing nausea vomiting of several months duration, noted to have mild hypokalemia and anterior lateral ST changes diagnosed with obstructing esophageal mass # esophageal mass # moderate protein-calorie malnutrition - with intractable N/V for months associated with weight loss - barium swallow done at [facility] showed esophageal mass extending towards GE junction causing high-grade stricture and partial obstruction and mild esophageal dysmotility - EGD 05/18: obstructing GE junction mass; biopsies done- high-grade dysplasia with no underlying dysplasia; suspect sampling limitation given appearance of mass on EGD; immunostains pending; if immunostains consisent with dysplasia without neoplasia, will need EUS for staging + endoscopic resection at [facility]; if adenoCA confirmed will need Surgical Oncology; will obtain CT chest with IV contrast for staging + consult Medical Oncology - continue PPI - will order NJ tube then start tube feeds; nutrition consultation for tube feed regimen # MSSA UTI - changed from IV ceftriaxone to doxycycline, on d#4 # hypokalemia # hypoMg # hypoCa - repleted ? # constipation - MiiraLax, lactulose, docusate/senna #DM2 - hold basal insulin, continue correction-dose lispro # HTN - continue carvedilol, hold lisinopril + furosemide # paroxysmal AF - continue carvedilol - no AC due to bleeding in past + ITP # unspecified CHF - not in acute exacerbation; hold furosemide as above # mood disorder - escitalopram # chronic normocytic anemia - Hb stable # ITP - platelet count stable # GERD - PPI # PAD - hold pentoxifylline # hx gout - colchine prn # VTE ppx: SCDs # dispo: LTC In my clinical judgment, the patient requires continued inpatient hospitalization for the following reasons: feeding tube I updated the pt's HCP Joyce by phone. Time Spent With Patient Time: Total time managing care of this patient today 55____ minutes. Quality Stroke Does the patient have a stroke diagnosis?: No VTE Prior VTE?: No VTE Risk Level:: Medical - moderate - high VTE Device Contraindication: N/A - Device Ordered VTE Drug Contraindication: Treatment Not Indicated
[2022-05-23 11:26] VITALS: BP 138/63; PULSE 60; RESP 16; TEMP 36.1; O2SAT 100
[2022-05-23 11:46] LABS: Glucose, Whole Blood 121 mg/dL (60-115)
[2022-05-23 15:04] VITALS: BP 123/71; PULSE 65; RESP 19; TEMP 37; O2SAT 97
[2022-05-23 15:29] LABS: Glucose, Whole Blood 98 mg/dL (60-115)
[2022-05-23] MEDS: 0.9 % Sodium Chloride Flush 3 ML SYRINGE IVFLUSH (16:00)
[2022-05-23 16:39] LABS: Glucose, Whole Blood 97 mg/dL (60-115)
[2022-05-23] MEDS: Melatonin 3 MG TABLET 6 MG PO (18:35)
[2022-05-23 20:06] LABS: Glucose, Whole Blood 90 mg/dL (60-115)
[2022-05-24] MEDS: Doxycycline Hyclate 100 MG in 0.9 % Sodium Chloride 250 ML 166.67 MG IV (04:46)
[2022-05-24 07:01] VITALS: BP 130/58; PULSE 67; RESP 16; TEMP 36.5; O2SAT 98
[2022-05-24 07:16] LABS: Glucose, Whole Blood 81 mg/dL (60-115)
[2022-05-24] MEDS: Dextrose 5 % and 0.45 % NaCl 1,000 ML 100 ML IVCONT (08:40)
--- NOTE | 2022-05-24 09:54 | HO.PM.IMPN ---
Subjective Subjective Date of Service: 05/24/22 Interval History: NPO, plan NJ tube today No pain Review of Systems Review of Systems: Yes all other systems are reviewed and are negative Physical Exam Vital Signs: Vital Signs: Last Vital Signs Temp 97.7 F 05/24/22 07:01 Pulse 67 05/24/22 07:01 Resp 16 05/24/22 07:01 BP 130/58 L 05/24/22 07:01 Pulse Ox 98 05/24/22 07:01 O2 Del Method Room Air 05/24/22 07:01 O2 Flow Rate 6 05/18/22 11:15 BMI result Body Mass Index 21.9 Gen: in no acute distress HEENT: sclera anicteric, L eye blind, moist mucus membranes Neck: supple Lungs: clear to auscultation bilaterally Heart: regular rate and rhythm, no murmurs Abd: soft, non-tender, non-distended Ext: no edema Skin: warm/well-perfused Neuro: alert and oriented x3, no focal findings Psych: appropriate affect Objective Data Active Medications Acetaminophen (Acetaminophen Supp 650 Mg Supp.Rect) 650 mg [place] Q6H PRN PRN Reason: Pain, Mild (Pain Scale 1-3) Calcium Carbonate (Calcium Carbonate 500 Mg Tablet) 500 mg PO TID [facility] Last Admin: 05/24/22 09:12 Dose: Not Given Documented By: ROQUE Non-Admin Reason: NPO Carvedilol (Carvedilol 6.25 Mg Tablet) 6.25 mg PO BID [facility]; Protocol Last Admin: 05/24/22 09:12 Dose: Not Given Documented By: ROQUE Non-Admin Reason: NPO Erythromycin (Erythromycin Base 0.5% Oph Oin 1 Gm Tube) 0.25 cm EYE-LEFT MOTH@0900 [facility] Last Admin: 05/22/22 10:08 Dose: Not Given Documented By: MANDY Non-Admin Reason: pt refused. MD AWARE Escitalopram Oxalate (Escitalopram Oxalate 10 Mg Tablet) 10 mg PO DAILY [facility] Last Admin: 05/24/22 09:12 Dose: Not Given Documented By: ROQUE Non-Admin Reason: NPO Fluticasone Propionate (Fluticasone Propionate Nasal 16 Gm [place]) 2 spray NOSTRIL-B DAILY [facility] Last Admin: 05/24/22 09:13 Dose: Not Given Documented By: ROQUE Non-Admin Reason: pt went for procedure Glucose (Glucose Gel 15 Gm Gel..Gram.) 15 gm PO Q15M PRN; Protocol PRN Reason: per Hypoglycemia Standing Ord. Dextrose (D10) 250 mls @ 750 mls/hr IV Q15M PRN; Protocol PRN Reason: per Hypoglycemia Standing Ord. Doxycycline Hyclate 100 mg/ (Sodium Chloride) 250 mls @ 166.67 mls/hr IV Q12H [facility] Last Infusion: 05/24/22 06:17 Dose: 0 mls/hr Documented By: PANCHITO Dextrose/Sodium Chloride (D51/2ns) 1,000 mls @ 100 mls/hr IVCONT .Q10H [facility] Last Infusion: 05/24/22 08:47 Dose: 0 mls/hr Documented By: ROQUE Insulin Human Lispro (Insulin Lispro 100 Unit/Ml 3 Ml Vial) 0 unit SUBCUT QIDACHS [facility]; Protocol Last Admin: 05/24/22 07:22 Dose: Not Given Documented By: ROQUE Non-Admin Reason: No Insulin Coverage Lactulose (Lactulose 20 Gm/30 Ml Solution) 20 gm PO BID [facility] Last Admin: 05/24/22 09:12 Dose: Not Given Documented By: ROQUE Non-Admin Reason: NPO Latanoprost (Latanoprost 0.005 % Ophth Kathy 2.5 Ml Drops) 1 drop EYE-RIGHT DAILY@1700 [facility] Last Admin: 05/23/22 16:54 Dose: Not Given Documented By: CARLOS Non-Admin Reason: Patient Refused Magnesium Oxide (Magnesium Oxide 400 Mg Tablet) 400 mg PO BID [facility] Last Admin: 05/24/22 09:12 Dose: Not Given Documented By: ROQUE Non-Admin Reason: NPO Melatonin (Melatonin 3 Mg Tablet) 6 mg PO DAILY@1800 PRN PRN Reason: Insomnia Last Admin: 05/23/22 18:35 Dose: 6 mg Documented By: CARLOS Omeprazole (Omeprazole 40 Mg Capsule.) 40 mg PO BID@0630,1630 [facility] Last Admin: 05/24/22 05:00 Dose: Not Given Documented By: PANCHITO Non-Admin Reason: Patient Refused Ondansetron HCl (Ondansetron Hcl 4 Mg/2 Ml Vial) 4 mg IVPUSH Q8H PRN PRN Reason: Nausea and Vomiting Polyethylene Glycol (Polyethylene Glycol 3350 17 Gm Powd.Pack) 17 gm PO DAILY [facility] Last Admin: 05/24/22 09:12 Dose: Not Given Documented By: ROQUE Non-Admin Reason: NPO Senna/Docusate Sodium (Sennosides/Docusate Sodium Tablet) 2 tab PO BID [facility] Last Admin: 05/24/22 09:12 Dose: Not Given Documented By: ROQUE Non-Admin Reason: NPO Sodium Biphosphate/Sodium Phosphate (Sodium Phosphate,[place]-Dibasic 133 Ml Enema) 133 ml LA ONCE [facility] Sodium Chloride (0.9 % Sodium Chloride Flush 3 Ml Syringe) 3 ml IVFLUSH QSHIFT [facility] Last Admin: 05/24/22 09:13 Dose: Not Given Documented By: ROQUE Non-Admin Reason: pt went for procedure Labs 05/22/22 06:34 05/23/22 06:37 Labs: Laboratory Results - last 24 hr 05/23/22 05/23/22 05/23/22 11:25 14:47 16:35 POC Glucose 121 H 98 97 05/23/22 05/24/22 19:51 07:00 POC Glucose [address] 05/21/22 15:55 IMPRESSION: Mild dilation of mid and distal esophagus with air-fluid level, with a small annular thickening distal esophagus/GE junction. No abnormal mediastinal or axillary lymphadenopathy. There are no lung nodules seen. Fleischner guidelines were followed. Assessment and Plan (1) Vomiting: Status: Acute (2) Unintentional weight loss: Status: Acute (3) Hypocalcemia: Status: Acute Plan hospital d#8 66yo M long-term resident of [facility] with paroxysmal AF (not on AC due to hx upper GI), CHF, BPH, COPD, DM2, GERD, hypothyroidism, depression, ITP, PAD, L eye blindness, and gout presented with several months of intractable nausea and vomiting with weight loss noted to have mild hypokalemia and anterior lateral ST changes ultimately diagnosed with obstructing esophageal mass # esophageal mass with severe esophageal obstruction # moderate protein-calorie malnutrition - barium swallow done at [facility] showed esophageal mass extending towards GE junction causing high-grade stricture and partial obstruction and mild esophageal dysmotility - EGD 05/[address] Zuniga showed obstructing GE junction mass; biopsy showed high-grade dysplasia with no underlying dysplasia - suspect sampling limitation given appearance of mass on EGD; immunostains [mismatch repair protein and her2/bethany] pending - will need EUS for staging + possible endoscopic resection [likely endoscopic submucoal dissection] + cryo which has to be done at [facility] [[facility] doesn't have ESD + cryo capability]. Dr Zuniga working to arrange this as outpt. - Medical Oncology consulted. No evidence for metastatic disease on CT chest. - continue PPI bid PO - NJ tube today then start tube feeds; nutrition consultation for tube feed regimen # MSSA UTI - initially treated with ceftriaxone. started doxycycline 05/20, end date 05/26 # hypokalemia # hypoMg # hypoCa - repleted ? # constipation - MiiraLax, lactulose, docusate/senna #DM2 - hold basal insulin, continue correction-dose lispro # HTN - continue carvedilol, hold lisinopril + furosemide # paroxysmal AF - continue carvedilol - no AC due to bleeding in past + ITP # unspecified CHF - not in acute exacerbation; hold furosemide as above # mood disorder - escitalopram # chronic normocytic anemia - Hb stable # ITP - platelet count stable # GERD - PPI # PAD - hold pentoxifylline # hx gout - colchine prn # VTE ppx: SCDs # dispo: LTC In my clinical judgment, the patient requires continued inpatient hospitalization for the following reasons: feeding tube placement and initiation of feeding I updated the pt's HCP Joyce by phone yesterday. Time Spent With Patient Time: Total time managing care of this patient today __50__ minutes. Quality Stroke Does the patient have a stroke diagnosis?: No VTE Prior VTE?: No VTE Risk Level:: Medical - moderate - high VTE Device Contraindication: N/A - Device Ordered VTE Drug Contraindication: Treatment Not Indicated
--- NOTE | 2022-05-24 10:22 | MHC.CM.PN ---
Per ROUNDS discussion, Patient is getting a N/J Tube today and then will need a Nutritional Consult. Patient is not yet medically cleared for dc and Cm will continue to follow (Plan is to return to [facility]).
[2022-05-24 10:40] VITALS: BP 132/61; PULSE 82; RESP 16; O2SAT 100
[2022-05-24 10:49] LABS: Glucose, Whole Blood 78 mg/dL (60-115)
--- NOTE | 2022-05-24 10:52 | MHC.CLN ---
RE: CONSULT NJ TUBE PLACED TODAY WHEN TF NEEDED; RECOMMEND GLUCERNA AT MAX GOAL RATE 90ML/HR WITH 120ML FREE WATER FLUSHES Q 8 HRS TO PROVIDE 2160KCALS (30KCALS/KG), 90G PROTEIN (1.2G/KG), 2202ML TOTAL WATER FROM FORMULA AND FLUSHES (30ML/KG) START FORMULA AT 20ML/HR AND INCREASE BY 10ML Q 4 HRS UNTIL MAX GOAL IS ACHIEVED DO NOT CHECK RESIDUALS WITH J TUBE MONITOR TOLERANCE AND LYTES SEE ALSO FULL CLINICAL NUTRITION ASSESSMENT
[2022-05-24 10:56] VITALS: BMI 21.9
[2022-05-24 16:00] VITALS: BP 122/59; PULSE 69; RESP 18; TEMP 37.1; O2SAT 100
[2022-05-24 16:05] LABS: Glucose, Whole Blood 77 mg/dL (60-115)
[2022-05-24] MEDS: Melatonin 3 MG TABLET 6 MG PO (19:32)
[2022-05-25] MEDS: 0.9 % Sodium Chloride Flush 3 ML SYRINGE IVFLUSH (00:30)
[2022-05-25] MEDS: Dextrose 5 % and 0.45 % NaCl 1,000 ML 100 ML IVCONT (04:56)
[2022-05-25] MEDS: Doxycycline Hyclate 100 MG in 0.9 % Sodium Chloride 250 ML 166.67 MG IV ×2 (04:56→15:13)
[2022-05-25 07:41] VITALS: BP 119/57; PULSE 70; RESP 20; TEMP 36.5; O2SAT 99
[2022-05-25 07:42] LABS: Glucose, Whole Blood 125 mg/dL (60-115)
[2022-05-25 08:04] LABS: Hematocrit 28.4 % (42.0-52.0); Hemoglobin 9.4 g/dl (14.0-18.0); Mean Corpuscular HGB Conc 33.1 g/dl (31.0-36.0); Mean Corpuscular Hemoglobin 30.3 pg (27.0-33.0); Mean Corpuscular Volume 91.6 fL (80.0-98.0); Red Cell Distribution Width 16.3 % (11.0-16.0); White Blood Count 4.2 X10*3/uL (4.8-10.8)
[2022-05-25 08:05] LABS: Platelet Count 40 X10*3/uL (160-400)
[2022-05-25 08:31] LABS: Anion Gap 14 (12-20); Blood Urea Nitrogen 5 mg/dL (9-16); Calcium 6.9 mg/dL (8.4-10.2); Carbon Dioxide 23 mmol/L (22-29); Chloride 109 mmol/L (96-108); Creatinine Clr Calc Pharmacy 111.2; Estimated Glomerular Filt Rate > 60; Glucose Random 103 mg/dL (60-115); Phosphorus 3.4 mg/dL (2.7-4.5); Potassium 3.1 mmol/L (3.3-5.1); Sodium 143 mmol/L (135-145)
[2022-05-25] MEDS: Erythromycin Base 0.5% Oph Oin 1 GM TUBE 0.25 CM EYE-LEFT (08:47)
[2022-05-25] MEDS: carvediloL 6.25 MG TABLET PO (08:47)
[2022-05-25] MEDS: Magnesium Oxide 400 MG TABLET PO (08:47)
[2022-05-25] MEDS: Sennosides/Docusate Sodium TABLET 2 TAB PO (08:47)
[2022-05-25 08:57] LABS: Magnesium 1.4 mg/dL (1.6-2.6)
[2022-05-25] MEDS: Magnesium Sulfate/H2O 2 GM/50 ML PIGGYBACK IV (09:55)
[2022-05-25] MEDS: Potassium Chloride Packet 20 MEQ PACKET 40 MEQ PO (09:55)
[2022-05-25 11:39] LABS: Glucose, Whole Blood 116 mg/dL (60-115)
--- NOTE | 2022-05-25 11:39 | P.PNIM_ITS ---
Subjective Subjective Date of Service: 05/25/22 Interval History: seen and examined this morning follow up for obstructing GE junction mass, s/p NJ tube placed yesterday denies abdominal pain, Nausea or vomiting. requesting to have diet advanced to puree Review of Systems Review of Systems: Yes all other systems are reviewed and are negative Constitutional Constitutional: Denies chills and Denies fever(s) Cardiovascular Cardiovascular: Denies chest pain, Denies palpitations and Denies dyspnea Respiratory Respiratory: Denies cough and Denies dyspnea Gastrointestinal Gastrointestinal: Denies abdominal pain, Denies nausea and Denies vomiting Endocrine Endocrine: Denies palpitations Physical Exam Vital Signs: Vital Signs: Last Vital Signs Temp 97.7 F 05/25/22 07:41 Pulse 70 05/25/22 07:41 Resp 20 05/25/22 07:41 BP 119/57 L 05/25/22 07:41 Pulse Ox 99 05/25/22 07:41 O2 Del Method Room Air 05/25/22 07:41 O2 Flow Rate 6 05/18/22 11:15 BMI result Body Mass Index 21.9 Const: General: comfortable, alert and awake Nutritional Appearance: average body habitus HEENT: Other: NJ tube in place Resp: Effort & Inspection: normal respiratory effort and able to speak in complete sentences GI: Inspection: No distended Palpation (GI): Soft to palpation and nont shin Objective Data Active Medications Acetaminophen (Acetaminophen Supp 650 Mg Supp.Rect) 650 mg [place] Q6H PRN PRN Reason: Pain, Mild (Pain Scale 1-3) Calcium Carbonate (Calcium Carbonate 500 Mg Tablet) 500 mg PO TID [facility] Last Admin: 05/25/22 08:50 Dose: Not Given Documented By: NATE Non-Admin Reason: Patient Refused Carvedilol (Carvedilol 6.25 Mg Tablet) 6.25 mg PO BID [facility]; Protocol Last Admin: 05/25/22 08:47 Dose: 6.25 mg Documented By: NATE Erythromycin (Erythromycin Base 0.5% Oph Oin 1 Gm Tube) 0.25 cm EYE-LEFT MOTH@0900 [facility] Last Admin: 05/25/22 08:47 Dose: 0.25 cm Documented By: NATE Escitalopram Oxalate (Escitalopram Oxalate 10 Mg Tablet) 10 mg PO DAILY [facility] Last Admin: 05/25/22 08:51 Dose: Not Given Documented By: NATE Non-Admin Reason: Patient Refused Fluticasone Propionate (Fluticasone Propionate Nasal 16 Gm [place]) 2 spray NOSTRIL-B DAILY [facility] Last Admin: 05/25/22 08:51 Dose: Not Given Documented By: NATE Non-Admin Reason: Patient Refused Glucose (Glucose Gel 15 Gm Gel..Gram.) 15 gm PO Q15M PRN; Protocol PRN Reason: per Hypoglycemia Standing Ord. Dextrose (D10) 250 mls @ 750 mls/hr IV Q15M PRN; Protocol PRN Reason: per Hypoglycemia Standing Ord. Doxycycline Hyclate 100 mg/ (Sodium Chloride) 250 mls @ 166.67 mls/hr IV Q12H [facility] Last Infusion: 05/25/22 06:37 Dose: 0 mls/hr Documented By: JACLYN Dextrose/Sodium Chloride (D51/2ns) 1,000 mls @ 100 mls/hr IVCONT .Q10H [facility] Last Infusion: 05/25/22 08:46 Dose: 0 mls/hr Documented By: NATE Insulin Human Lispro (Insulin Lispro 100 Unit/Ml 3 Ml Vial) 0 unit SUBCUT QIDACHS [facility]; Protocol Last Admin: 05/25/22 07:47 Dose: Not Given Documented By: NATE Non-Admin Reason: See Note Lactulose (Lactulose 20 Gm/30 Ml Solution) 20 gm PO BID [facility] Last Admin: 05/25/22 08:51 Dose: Not Given Documented By: NATE Non-Admin Reason: Patient Refused Latanoprost (Latanoprost 0.005 % Ophth Kathy 2.5 Ml Drops) 1 drop EYE-RIGHT DAILY@1700 [facility] Last Admin: 05/24/22 19:17 Dose: Not Given Documented By: HEAVENLYYM Non-Admin Reason: called pharmacist- med not available Magnesium Oxide (Magnesium Oxide 400 Mg Tablet) 400 mg PO BID [facility] Last Admin: 05/25/22 08:47 Dose: 400 mg Documented By: NATE Melatonin (Melatonin 3 Mg Tablet) 6 mg PO DAILY@1800 PRN PRN Reason: Insomnia Last Admin: 05/24/22 19:32 Dose: 6 mg Documented By: HO.FOGARTB Omeprazole (Omeprazole 40 Mg Capsule.) 40 mg PO BID@1230,6590 [facility] Last Admin: 05/25/22 06:45 Dose: Not Given Documented By: JACLYN Non-Admin Reason: Patient Refused Ondansetron HCl (Ondansetron Hcl 4 Mg/2 Ml Vial) 4 mg IVPUSH Q8H PRN PRN Reason: Nausea and Vomiting Polyethylene Glycol (Polyethylene Glycol 3350 17 Gm Powd.Pack) 17 gm PO DAILY [facility] Last Admin: 05/25/22 08:51 Dose: Not Given Documented By: NATE Non-Admin Reason: Patient Refused Senna/Docusate Sodium (Sennosides/Docusate Sodium Tablet) 2 tab PO BID [facility] Last Admin: 05/25/22 08:47 Dose: 2 tab Documented By: NATE Sodium Biphosphate/Sodium Phosphate (Sodium Phosphate,[place]-Dibasic 133 Ml Enema) 133 ml [place] ONCE [facility] Sodium Chloride (0.9 % Sodium Chloride Flush 3 Ml Syringe) 3 ml IVFLUSH QSHIFT [facility] Last Admin: 05/25/22 07:04 Dose: Not Given Documented By: NATE Non-Admin Reason: See Note Labs 05/25/22 06:10 05/25/22 06:10 Labs: Laboratory Results - last 24 hr 05/24/22 05/25/22 05/25/22 16:01 06:10 06:10 MCV 91.6 MCH 30.3 MCHC 33.1 RDW 16.3 H Plt Count 40 L MPV Not Reportable Absolute Nucleated RBC 0.000 Nucleated RBC % (auto) 0.0 Anion Gap 14 Estim Creat Clear Calc 111.2 Estimated GFR > 60 POC Glucose 77 Random Glucose 103 Calcium 6.9 L D Phosphorus 3.4 Magnesium 1.4 L* 05/25/22 07:38 MCV MCH MCHC RDW Plt Count MPV Absolute Nucleated RBC Nucleated RBC % (auto) Anion Gap Estim Creat Clear Calc Estimated GFR POC Glucose 125 H Random Glucose Calcium Phosphorus Magnesium Assessment and Plan (1) Esophageal mass: Status: Acute Plan 66yo M long-term resident of [facility] with paroxysmal AF (not on AC due to hx upper GI), CHF, BPH, COPD, DM2, GERD, hypothyroidism, depression, ITP, PAD, L eye blindness, and gout presented with several months of intractable nausea and vomiting with weight loss noted to have mild hypokalemia and anterior lateral ST changes ultimately diagnosed with obstructing esophageal mass # esophageal mass with severe esophageal obstruction # moderate protein-calorie malnutrition - barium swallow done at [facility] showed esophageal mass exte nding towards GE junction causing high-grade stricture and partial obstruction and mild esophageal dysmotility - EGD 05/[address] Zuniga showed obstructing GE junction mass; biopsy showed high- grade dysplasia with no underlying dysplasia - suspect sampling limitation given appearance of mass on EGD; immunostains [mismatch repair protein and her2/bethany] pending - will need EUS for staging + possible endoscopic resection [likely endoscopic submucoal dissection] + cryo which has to be done at [facility] [[facility] doesn't have ESD + cryo capability]. Dr Zuniga working to arrange this as outpt. - Medical Oncology consulted. No evidence for metastatic disease on CT chest. - continue PPI bid PO - NJ tube placed 05/24, nutrition consultation for tube feed regimen - tube feeding started 05/25 # MSSA UTI - initially treated with ceftriaxone. started doxycycline 05/20, end date 05/26 # hypokalemia # hypoMg # hypoCa - repleted ? # constipation - MiiraLax, lactulose, docusate/senna #DM2 - hold basal insulin, continue correction-dose lispro # HTN - continue carvedilol, hold lisinopril + furosemide # paroxysmal AF - continue carvedilol - no AC due to bleeding in past + ITP # unspecified CHF - not in acute exacerbation; hold furosemide as above # mood disorder - escitalopram # chronic normocytic anemia - Hb stable # ITP - platelet count stable # GERD - PPI # PAD - hold pentoxifylline # hx gout - colchine prn # VTE ppx: SCDs # dispo: LTC attending - Dr. Bucio In my clinical judgment, the patient requires continued inpatient hospitalization for the following reasons: initiation of feeding Time Spent With Patient Time: Total time managing care of this patient today ____ minutes. Quality Stroke Does the patient have a stroke diagnosis?: No VTE Prior VTE?: No VTE Risk Level:: Medical - moderate - high VTE Device Contraindication: N/A - Device Ordered VTE Drug Contraindication: Treatment Not Indicated
[2022-05-25 12:40] VITALS: BP 140/88; PULSE 68; RESP 19; TEMP 36.4; O2SAT 100
[2022-05-25 15:33] VITALS: BP 131/63; PULSE 66; RESP 13; TEMP 36; O2SAT 98
--- NOTE | 2022-05-25 16:01 | PC.NURSE ---
Informed MD of pt's multiple episodes of vomiting and low residual via NGT ~20cc. Pt stated he does not feel nauseous, only has sudden vomiting. TF nad water flushes on hold, pt strict NPO per MD order.
[2022-05-25 16:22] LABS: Glucose, Whole Blood 141 mg/dL (60-115)
[2022-05-25] MEDS: Latanoprost 0.005 % Ophth Sol 2.5 ML DROPS 1 DROP EYE-RIGHT (17:04)
[2022-05-25 20:47] LABS: Glucose, Whole Blood 89 mg/dL (60-115)
--- NOTE | 2022-05-25 21:12 | PM.EVENT ---
Event Note Date of Service: 05/25/22 Event Note: Patient refusing to have his vitals checked. He is completely NPO, his glucose was found to be 89, will place him on D5 Time Spent With Patient Time: Total time managing care of this patient today ____ minutes.
[2022-05-25] MEDS: Dextrose 5 % and Lactated Ring 1,000 ML 50 ML IVCONT (21:35)
[2022-05-25 21:40] VITALS: BP 123/60; PULSE 58; RESP 20; TEMP 36.6; O2SAT 100
--- NOTE | 2022-05-25 22:00 | PC.NURSE ---
Pt A&OX3, sitting in recliner. He is irritable and refusing care and physical assessment. Education provided w/o success. Pt refused all of his nighttime meds including BP meds. BP was 123/60. Pt initially refused his FSBG but later allowed it to be done and BG was found to be 89. Pt is NPO and has NGT in, Tube feeds on hold. MD Hough notified and ordered D5LR. Pt also refusing to have camera in his room. He is incont and does call appropriately.
[2022-05-26] MEDS: Doxycycline Hyclate 100 MG in 0.9 % Sodium Chloride 250 ML 166.67 MG IV ×2 (05:11→17:01)
[2022-05-26 07:08] VITALS: BP 118/58; PULSE 69; RESP 18; TEMP 36.3; O2SAT 100
[2022-05-26 07:41] LABS: Glucose, Whole Blood 89 mg/dL (60-115)
[2022-05-26 09:23] LABS: Anion Gap 12 (12-20); Blood Urea Nitrogen 4 mg/dL (9-16); Calcium 7.7 mg/dL (8.4-10.2); Carbon Dioxide 27 mmol/L (22-29); Chloride 109 mmol/L (96-108); Creatinine Clr Calc Pharmacy 116.5; Estimated Glomerular Filt Rate > 60; Glucose Random 98 mg/dL (60-115); Magnesium 1.8 mg/dL (1.6-2.6); Potassium 3.8 mmol/L (3.3-5.1); Sodium 144 mmol/L (135-145)
--- NOTE | 2022-05-26 10:36 | MHC.CLN ---
F/U PT'S TF PLACED ON HOLD 05/25 R/T MULTIPLE EPISODES OF VOMITING PT WAS RECEIVING C/L DIET AND TF PT REPORTED NO NAUSEA JUST SUDDEN VOMITING POC 89; D5LR WAS STARTED PA RESUMED TF THIS AM PT TO RECEIVE GLUCERNA AT MAX GOAL RATE 90ML/HR WITH 120ML FREE WATER FLUSHES Q 8 HRS TO PROVIDE 2160KCALS (30KCALS/KG), 90G PROTEIN (1.2G/KG), 2202ML TOTAL WATER FROM FORMULA AND FLUSHES (30ML/KG) START FORMULA AT 20ML/HR AND INCREASE BY 10ML Q 4 HRS UNTIL MAX GOAL IS ACHIEVED DO NOT CHECK RESIDUALS WITH J TUBE MONITOR TOLERANCE AND LYTES
[2022-05-26 11:56] LABS: Glucose, Whole Blood 83 mg/dL (60-115)
[2022-05-26 15:29] VITALS: BP 136/68; PULSE 70; RESP 14; TEMP 36; O2SAT 100
--- NOTE | 2022-05-26 15:33 | MHC.CM.PN ---
per rounds pt may be dc this weekend
[2022-05-26 16:57] LABS: Glucose, Whole Blood 79 mg/dL (60-115)
[2022-05-26] MEDS: 0.9 % Sodium Chloride Flush 3 ML SYRINGE IVFLUSH ×2 (17:01→19:43)
[2022-05-26] MEDS: Latanoprost 0.005 % Ophth Sol 2.5 ML DROPS 1 DROP EYE-RIGHT (17:02)
--- NOTE | 2022-05-26 17:34 | HO.PM.IMPN ---
Subjective Subjective Date of Service: 05/26/22 Interval History: seen and examined this morning follow up for obstructing GE junction mass tube feeds restarted this morning unfortunately [place] tube came out this afternoon - patient said he sneezed and it came out Review of Systems Review of Systems: Yes all other systems are reviewed and are negative Constitutional Constitutional: Denies chills and Denies fever(s) Cardiovascular Cardiovascular: Denies chest pain Gastrointestinal Gastrointestinal: Denies nausea and Denies vomiting Physical Exam Vital Signs: Vital Signs: Last Vital Signs Temp 96.8 F 05/26/22 15:29 Pulse 70 05/26/22 15:29 Resp 14 05/26/22 15:29 BP 136/68 05/26/22 15:29 Pulse Ox 100 05/26/22 15:29 O2 Del Method Room Air 05/26/22 15:29 O2 Flow Rate 6 05/18/22 11:15 BMI result Body Mass Index 21.9 Const: General: comfortable, alert and awake Nutritional Appearance: average body habitus HEENT: Other: [place] tube in place Resp: Effort & Inspection: normal respiratory effort and able to speak in complete sentences GI: Inspection: No distended Palpation (GI): Soft to palpation and nontender Objective Data Active Medications Acetaminophen (Acetaminophen Supp 650 Mg Supp.Rect) 650 mg CO Q6H PRN PRN Reason: Pain, Mild (Pain Scale 1-3) Calcium Carbonate (Calcium Carbonate 500 Mg Tablet) 500 mg PO TID [facility] Last Admin: 05/26/22 14:34 Dose: Not Given Documented By: KALA Non-Admin Reason: Patient Refused Carvedilol (Carvedilol 6.25 Mg Tablet) 6.25 mg PO BID [facility]; Protocol Last Admin: 05/26/22 08:25 Dose: Not Given Documented By: KALA Non-Admin Reason: Patient Refused Erythromycin (Erythromycin Base 0.5% Oph Oin 1 Gm Tube) 0.25 cm EYE-LEFT MOTH@0900 [facility] Last Admin: 05/25/22 08:47 Dose: 0.25 cm Documented By: NATE Escitalopram Oxalate (Escitalopram Oxalate 10 Mg Tablet) 10 mg PO DAILY [facility] Last Admin: 05/26/22 08:26 Dose: Not Given Documented By: KALA Non-Admin Reason: Patient Refused Fluticasone Propionate (Fluticasone Propionate Nasal 16 Gm [place]) 2 spray NOSTRIL-B DAILY [facility] Last Admin: 05/26/22 08:26 Dose: Not Given Documented By: KALA Non-Admin Reason: Patient Refused Glucose (Glucose Gel 15 Gm Gel..Gram.) 15 gm PO Q15M PRN; Protocol PRN Reason: per Hypoglycemia Standing Ord. Dextrose (D10) 250 mls @ 750 mls/hr IV Q15M PRN; Protocol PRN Reason: per Hypoglycemia Standing Ord. Doxycycline Hyclate 100 mg/ (Sodium Chloride) 250 mls @ 166.67 mls/hr IV Q12H [facility] Last Admin: 05/26/22 17:01 Dose: 166.67 mls/hr Documented By: KALA Dextrose/Lactated Ringer's (D5lr) 1,000 mls @ 50 mls/hr IVCONT .Q20H [facility] Last Infusion: 05/26/22 16:40 Dose: 0 mls/hr Documented By: KALA Insulin Human Lispro (Insulin Lispro 100 Unit/Ml 3 Ml Vial) 0 unit SUBCUT QIDACHS [facility]; Protocol Last Admin: 05/26/22 16:31 Dose: Not Given Documented By: KALA Non-Admin Reason: NPO Lactulose (Lactulose 20 Gm/30 Ml Solution) 20 gm PO BID [facility] Last Admin: 05/26/22 08:26 Dose: Not Given Documented By: KALA Non-Admin Reason: Patient Refused Latanoprost (Latanoprost 0.005 % Ophth Kathy 2.5 Ml Drops) 1 drop EYE-RIGHT DAILY@1700 [facility] Last Admin: 05/26/22 17:02 Dose: 1 drop Documented By: KALA Magnesium Oxide (Magnesium Oxide 400 Mg Tablet) 400 mg PO BID [facility] Last Admin: 05/26/22 08:26 Dose: Not Given Documented By: KALA Non-Admin Reason: Patient Refused Melatonin (Melatonin 3 Mg Tablet) 6 mg PO DAILY@1800 PRN PRN Reason: Insomnia Last Admin: 05/24/22 19:32 Dose: 6 mg Documented By: JOSE MANUEL Omeprazole (Omeprazole 40 Mg Capsule.) 40 mg PO BID@0630,1630 [facility] Last Admin: 05/26/22 16:21 Dose: Not Given Documented By: KALA Non-Admin Reason: Patient Refused Ondansetron HCl (Ondansetron Hcl 4 Mg/2 Ml Vial) 4 mg IVPUSH Q8H PRN PRN Reason: Nausea and Vomiting Polyethylene Glycol (Polyethylene Glycol 3350 17 Gm Powd.Pack) 17 gm PO DAILY [facility] Last Admin: 05/26/22 08:26 Dose: Not Given Documented By: KALA Non-Admin Reason: Patient Refused Senna/Docusate Sodium (Sennosides/Docusate Sodium Tablet) 2 tab PO BID [facility] Last Admin: 05/26/22 08:26 Dose: Not Given Documented By: KALA Non-Admin Reason: Patient Refused Sodium Biphosphate/Sodium Phosphate (Sodium Phosphate,[place]-Dibasic 133 Ml Enema) 133 ml CO ONCE [facility] Sodium Chloride (0.9 % Sodium Chloride Flush 3 Ml Syringe) 3 ml IVFLUSH QSHIFT [facility] Last Admin: 05/26/22 17:01 Dose: 3 ml Documented By: KALA Labs 05/25/22 06:10 05/26/22 08:50 Labs: Laboratory Results - last 24 hr 05/25/22 05/26/22 05/26/22 20:42 07:13 08:50 Anion Gap 12 Estim Creat Clear Calc 116.5 Estimated GFR > 60 POC Glucose 89 89 Random Glucose 98 Calcium 7.7 L D Magnesium 1.8 05/26/22 05/26/22 10:55 16:54 Anion Gap Estim Creat Clear Calc Estimated GFR POC Glucose 83 79 Random Glucose Calcium Magnesium Assessment and Plan (1) Esophageal mass: Status: Acute Plan 66yo M long-term resident of [facility] with paroxysmal AF (not on AC due to hx upper GI), CHF, BPH, COPD, DM2, GERD, hypothyroidism, depression, ITP, PAD, L eye blindness, and gout presented with several months of intractable nausea and vomiting with weight loss noted to have mild hypokalemia and anterior lateral ST changes ultimately diagnosed with obstructing esophageal mass # esophageal mass with severe esophageal obstruction # moderate protein-calorie malnutrition - barium swallow done at [facility] showed esophageal mass extending towards GE junction causing high-grade stricture and partial obstruction and mild esophageal dysmotility - EGD 05/[address] Zuniga showed obstructing GE junction mass; biopsy showed high-grade dysplasia with 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 Dr Zuniga working to arrange this as outpt. - Medical Oncology consulted. No evidence for metastatic disease on CT chest. - continue PPI bid PO - NJ tube placed 05/24, nutrition consultation for tube feed regimen - unfortunately NJ tube came out this afternoon - will make pt NPO, will need repeat feeding tube placed on Sunday # MSSA UTI - initially treated with ceftriaxone. started doxycycline 05/20, end date 05/26 # hypokalemia # hypoMg # hypoCa - repleted ? # constipation - MiraLax, lactulose, docusate/senna #DM2 - hold basal insulin, continue correction-dose lispro # HTN - continue carvedilol, hold lisinopril + furosemide # paroxysmal AF - continue carvedilol - no AC due to bleeding in past + ITP # unspecified CHF - not in acute exacerbation; hold furosemide as above # mood disorder - escitalopram # chronic normocytic anemia - Hb stable # ITP - platelet count stable # GERD - PPI # PAD - hold pentoxifylline # hx gout - colchine prn # VTE ppx: SCDs # dispo: LTC attending - In my clinical judgment, the patient requires continued inpatient hospitalization for the following reasons: initiation of feeding Time Spent With Patient Time: Total time managing care of this patient today ____ minutes. Quality Stroke Does the patient have a stroke diagnosis?: No VTE Prior VTE?: No VTE Risk Level:: Medical - moderate - high VTE Device Contraindication: N/A - Device Ordered VTE Drug Contraindication: Treatment Not Indicated
[2022-05-26] MEDS: Melatonin 3 MG TABLET 6 MG PO (18:14)
[2022-05-26] MEDS: Dextrose 5 % and Lactated Ring 1,000 ML 50 ML IVCONT (19:42)
[2022-05-27 07:21] LABS: Glucose, Whole Blood 96 mg/dL (60-115)
[2022-05-27 07:39] VITALS: BP 121/61; PULSE 67; RESP 20; TEMP 36.4; O2SAT 100
--- NOTE | 2022-05-27 09:48 | P.PNIM_ITS ---
Subjective Subjective Date of Service: 05/27/22 Interval History: seen and examined this morning follow up for obstruction GE junction mass unfortunately pt sneezed out NJ tube yesterday afternoon no overnight events frustrated with current situation, but overall feeling well. no abdominal pain has been refusing medications Review of Systems Review of Systems: Yes all other systems are reviewed and are negative Constitutional Constitutional: Denies chills and Denies fever(s) Cardiovascular Cardiovascular: Denies chest pain, Denies palpitations and Denies dyspnea Respiratory Respiratory: Denies cough and Denies dyspnea Gastrointestinal Gastrointestinal: Denies abdominal pain Endocrine Endocrine: Denies palpitations Physical Exam Vital Signs: Vital Signs: Last Vital Signs Temp 97.5 F 05/27/22 07:39 Pulse 67 05/27/22 07:39 Resp 20 05/27/22 07:39 BP 121/61 05/27/22 07:39 Pulse Ox 100 05/27/22 07:39 O2 Del Method Room Air 05/27/22 07:39 O2 Flow Rate 6 05/18/22 11:15 BMI result Body Mass Index 21.9 Const: General: comfortable, alert and awake Nutritional Appearance: average body habitus Eyes: Other: left eye blind Resp: Effort & Inspection: normal respiratory effort and able to speak in complete sentences GI: Inspection: No distended Palpation (GI): Soft to palpation and nontender Objective Data Active Medications Acetaminophen (Acetaminophen Supp 650 Mg Supp.Rect) 650 mg CO Q6H PRN PRN Reason: Pain, Mild (Pain Scale 1-3) Calcium Carbonate (Calcium Carbonate 500 Mg Tablet) 500 mg PO TID [facility] Last Admin: 05/27/22 08:31 Dose: Not Given Documented By: JEFF Non-Admin Reason: NPO Carvedilol (Carvedilol 6.25 Mg Tablet) 6.25 mg PO BID [facility]; Protocol Last Admin: 05/27/22 08:31 Dose: Not Given Documented By: JEFF Non-Admin Reason: NPO Erythromycin (Erythromycin Base 0.5% Oph Oin 1 Gm Tube) 0.25 cm EYE-LEFT MOTH@0900 [facility] Last Admin: 05/25/22 08:47 Dose: 0.25 cm Documented By: NATE Escitalopram Oxalate (Escitalopram Oxalate 10 Mg Tablet) 10 mg PO DAILY [facility] Last Admin: 05/27/22 08:31 Dose: Not Given Documented By: JEFF Non-Admin Reason: NPO Fluticasone Propionate (Fluticasone Propionate Nasal 16 Gm [place]) 2 spray NOSTRIL-B DAILY [facility] Last Admin: 05/27/22 08:31 Dose: Not Given Documented By: JEFF Non-Admin Reason: NPO Glucose (Glucose Gel 15 Gm Gel..Gram.) 15 gm PO Q15M PRN; Protocol PRN Reason: per Hypoglycemia Standing Ord. Dextrose (D10) 250 mls @ 750 mls/hr IV Q15M PRN; Protocol PRN Reason: per Hypoglycemia Standing Ord. Dextrose/Lactated Ringer's (D5lr) 1,000 mls @ 50 mls/hr IVCONT .Q20H [facility] Last Admin: 05/26/22 19:42 Dose: 50 mls/hr Documented By: BENJAMIN Insulin Human Lispro (Insulin Lispro 100 Unit/Ml 3 Ml Vial) 0 unit SUBCUT QIDACHS [facility]; Protocol Last Admin: 05/27/22 08:08 Dose: Not Given Documented By: JEFF Non-Admin Reason: No Insulin Coverage Lactulose (Lactulose 20 Gm/30 Ml Solution) 20 gm PO BID [facility] Last Admin: 05/27/22 08:31 Dose: Not Given Documented By: JEFF Non-Admin Reason: NPO Latanoprost (Latanoprost 0.005 % Ophth Kathy 2.5 Ml Drops) 1 drop EYE-RIGHT DAILY@1700 [facility] Last Admin: 05/26/22 17:02 Dose: 1 drop Documented By: KALA Magnesium Oxide (Magnesium Oxide 400 Mg Tablet) 400 mg PO BID [facility] Last Admin: 05/27/22 08:31 Dose: Not Given Documented By: JEFF Non-Admin Reason: NPO Melatonin (Melatonin 3 Mg Tablet) 6 mg PO DAILY@1800 PRN PRN Reason: Insomnia Last Admin: 05/26/22 18:14 Dose: 6 mg Documented By: KALA Omeprazole (Omeprazole 40 Mg Capsule.) 40 mg PO BID@0630,1630 [facility] Last Admin: 05/27/22 06:10 Dose: Not Given Documented By: HOLLY Non-Admin Reason: Patient Refused Ondansetron HCl (Ondansetron Hcl 4 Mg/2 Ml Vial) 4 mg IVPUSH Q8H PRN PRN Reason: Nausea and Vomiting Polyethylene Glycol (Polyethylene Glycol 3350 17 Gm Powd.Pack) 17 gm PO DAILY [facility] Last Admin: 05/27/22 08:31 Dose: Not Given Documented By: JEFF Non-Admin Reason: NPO Senna/Docusate Sodium (Sennosides/Docusate Sodium Tablet) 2 tab PO BID [facility] Last Admin: 05/27/22 08:32 Dose: Not Given Documented By: JEFF Non-Admin Reason: NPO Sodium Biphosphate/Sodium Phosphate (Sodium Phosphate,[place]-Dibasic 133 Ml Enema) 133 ml CO ONCE [facility] Sodium Chloride (0.9 % Sodium Chloride Flush 3 Ml Syringe) 3 ml IVFLUSH QSHIFT [facility] Last Admin: 05/27/22 09:29 Dose: Not Given Documented By: JEFF Non-Admin Reason: IV Running Labs 05/25/22 06:10 05/26/22 08:50 Labs: Laboratory Results - last 24 hr 05/26/22 05/26/22 05/27/22 10:55 16:54 07:14 POC Glucose 83 79 96 Assessment and Plan (1) Esophageal mass: Status: Acute Plan 66yo M long-term resident of [facility] with paroxysmal AF (not on AC due to hx upper GI), CHF, BPH, COPD, DM2, GERD, hypothyroidism, depression, ITP, PAD, L eye blindness, and gout presented with several months of intractable nausea and vomiting with weight loss noted to have mild hypokalemia and anterior lateral ST changes ultimately diagnosed with obstructing esophageal mass # esophageal mass with severe esophageal obstruction # moderate protein-calorie malnutrition - barium swallow done at [facility] showed esophageal mass extending towards GE junction causing high-grade stricture and partial obstruction and mild esophageal dysmotility - EGD 05/[address] Zuniga showed obstructing GE junction mass; biopsy showed high- grade dysplasia with no underlying dysplasia - suspect sampling limitation given appearance of mass on EGD; immunostains [mismatch repair protein and her2/bethany] pending - will need EUS for staging + possible endoscopic resection [likely endoscopic s ubmucoal dissection] + cryo which has to be done at [facility] [[facility] doesn't have ESD + cryo capability]. Dr Efrain working to arrange this as outpt. - Medical Oncology consulted. No evidence for metastatic disease on CT chest. - continue PPI bid PO - [place] tube placed 05/24, nutrition consultation for tube feed regimen - unfortunately [place] tube came out 05/26 - will need repeat feeding tube placed on Sunday. will trial full liquids for now # MSSA UTI - initially treated with ceftriaxone. started doxycycline 05/20, end date 05/26 # hypokalemia # hypoMg # hypoCa - repleted ? #lateral ST changes no chest pain, negative trop no further work up necessary # constipation - MiraLax, lactulose, docusate/senna #DM2 - hold basal insulin, continue correction-dose lispro # HTN - continue carvedilol, hold lisinopril + furosemide # paroxysmal AF - continue carvedilol - no AC due to bleeding in past + ITP # unspecified CHF - not in acute exacerbation; hold furosemide as above # mood disorder - escitalopram # chronic normocytic anemia - Hb stable # ITP - platelet count stable # GERD - PPI # PAD - hold pentoxifylline # hx gout - colchine prn # VTE ppx: SCDs # dispo: LTC attending - In my clinical judgment, the patient requires continued inpatient hospitalization for the following reasons: feeding tube placement and initiation of feeding Time Spent With Patient Time: Total time managing care of this patient today ____ minutes. Quality Stroke Does the patient have a stroke diagnosis?: No VTE Prior VTE?: No VTE Risk Level:: Medical - moderate - high VTE Device Contraindication: N/A - Device Ordered VTE Drug Contraindication: Treatment Not Indicated
[2022-05-27 11:48] LABS: Glucose, Whole Blood 96 mg/dL (60-115)
[2022-05-27 15:30] VITALS: BP 146/68; PULSE 59; RESP 20; TEMP 36.3; O2SAT 99
[2022-05-27] MEDS: Dextrose 5 % and Lactated Ring 1,000 ML 50 ML IVCONT (15:38)
[2022-05-27 17:01] LABS: Glucose, Whole Blood 99 mg/dL (60-115)
[2022-05-27] MEDS: Latanoprost 0.005 % Ophth Sol 2.5 ML DROPS 1 DROP EYE-RIGHT (17:14)
--- NOTE | 2022-05-27 21:09 | P.PNHO-ONC_ITS ---
Medical Summary - Medical Summary Date of Service: 05/27/22 Primary Care Provider: NAVNEET CAPUTO Medical Summary: DIAGNOSIS: ESOPHAGEAL MASS: HIGH-GRADE DYSPLASIA. Interval History Interval history: He reports he is unable to swallow food or fluid. Insertion of a G-tube is pending. Review of Systems - Constitutional Reports anorexia - Cardiovascular Reports shortness of breath - Respiratory Reports cough - Genitourinary Genitourinary: Reports frequent nighttime urination - Musculoskeletal Reports muscle weakness [facility] Medical History: Medical History (Last Reviewed 05/17/22 @ 18:36 by Mary Troncoso MD) Atrial fibrillation Blindness of left eye BPH (benign prostatic hyperplasia) CHF (congestive heart failure) COPD (chronic obstructive pulmonary disease) Diabetes Diverticulosis Gallbladder sludge GERD (gastroesophageal reflux disease) History of COVID-19 Hypothyroid Major depression Osteoarthritis Resides in senior care facility 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 Strain of left knee Thrombocytopenia Family History: Family History (Last Reviewed 05/17/22 @ 18:36 by Mary Troncoso MD) Maternal Grandmother Diabetes Mother Diabetes Surgical History: Surgical History (Last Reviewed 05/17/22 @ 18:36 by Mary Troncoso MD) History of esophagogastroduodenoscopy (EGD) Hx of colonoscopy Hx of eye surgery Social History: Social History (Last Reviewed 05/17/22 @ 18:36 by Mary Troncoso MD) Living Situation History: Household Members: None Household Members Other:: retirement Housing: Long-Term Housing Other:: [facility] Do you presently have visiting nurse or other home services: Yes Alcohol History Details: Currently Displaying Signs/Symptoms of Alcohol Withdrawal: No Tobacco History: Patient Tobacco Use Status: Former Tobacco user Tobacco use type: Cigarette Years Smoked: quit 10 years ago Smoked in Last 30 Days: No Smoke Quit Date: 10 yrs ago Substance Use History: Use of substances other than those prescribed or required for medical reasons : No Currently Displaying Signs/Symptoms of Drug Intoxication Withdrawal: No Domestic Abuse History: Have you been hit, kicked, punched, or otherwise hurt by someone within the past year? If so, by whom?: No Do you feel safe in your current relationship?: No Current Relationship Is there a partner from a previous relationship who is making you feel unsafe now?: No Advance Directives: Advance Directives: Yes Advance Directives on File: Yes Advance Directives Date on File: 02/20/20 Homicidal Assessment: Do you have thoughts of harming others: None Do you have a plan to hurt others: No Plan Nutrition Assessment: Recently lost weight without trying: Unsure How much weight loss: 14-23 pounds Eating poorly because of decreased appetite: Yes Nutrition screen score: 5 Nutrition Risks: Acute nausea or vomiting Occupation Assessmet: service: No Current occupational status: retired Home Medications and Allergies Current Medications: Current Medications Acetaminophen (Acetaminophen Supp 650 Mg Supp.Rect) 650 mg NC Q6H PRN PRN Reason: Pain, Mild (Pain Scale 1-3) Calcium Carbonate (Calcium Carbonate 500 Mg Tablet) 500 mg PO TID [facility] Last Admin: 05/27/22 16:07 Dose: Not Given Carvedilol (Carvedilol 6.25 Mg Tablet) 6.25 mg PO BID [facility]; Protocol Last Admin: 05/27/22 08:31 Dose: Not Given Erythromycin (Erythromycin Base 0.5% Oph Oin 1 Gm Tube) 0.25 cm EYE-LEFT MOTH@0900 [facility] Last Admin: 05/25/22 08:47 Dose: 0.25 cm Escitalopram Oxalate (Escitalopram Oxalate 10 Mg Tablet) 10 mg PO DAILY [facility] Last Admin: 05/27/22 08:31 Dose: Not Given Fluticasone Propionate (Fluticasone Propionate Nasal 16 Gm [place]) 2 spray NOSTRIL-B DAILY [facility] Last Admin: 05/27/22 08:31 Dose: Not Given Glucose (Glucose Gel 15 Gm Gel..Gram.) 15 gm PO Q15M PRN; Protocol PRN Reason: per Hypoglycemia Standing Ord. Dextrose (D10) 250 mls @ 750 mls/hr IV Q15M PRN; Protocol PRN Reason: per Hypoglycemia Standing Ord. Dextrose/Lactated Ringer's (D5lr) 1,000 mls @ 50 mls/hr IVCONT .Q20H [facility] Last Admin: 05/27/22 15:38 Dose: 50 mls/hr Insulin Human Lispro (Insulin Lispro 100 Unit/Ml 3 Ml Vial) 0 [facility]I [facility]; Protocol Last Admin: 05/27/22 17:08 Dose: Not Given Lactulose (Lactulose 20 Gm/30 Ml Solution) 20 gm PO BID [facility] Last Admin: 05/27/22 08:31 Dose: Not Given Latanoprost (Latanoprost 0.005 % Ophth Kathy 2.5 Ml Drops) 1 drop EYE-RIGHT DAILY@1700 [facility] Last Admin: 05/27/22 17:14 Dose: 1 drop Magnesium Oxide (Magnesium Oxide 400 Mg Tablet) 400 mg PO BID [facility] Last Admin: 05/27/22 08:31 Dose: Not Given Melatonin (Melatonin 3 Mg Tablet) 6 mg PO DAILY@1800 PRN PRN Reason: Insomnia Last Admin: 05/26/22 18:14 Dose: 6 mg Omeprazole (Omeprazole 40 Mg Capsule.Dr) 40 mg PO BID@0630,1630 [facility] Last Admin: 05/27/22 16:07 Dose: Not Given Ondansetron HCl (Ondansetron Hcl 4 Mg/2 Ml Vial) 4 mg IVPUSH Q8H PRN PRN Reason: Nausea and Vomiting Polyethylene Glycol (Polyethylene Glycol 3350 17 Gm Powd.Pack) 17 gm PO DAILY [facility] Last Admin: 05/27/22 08:31 Dose: Not Given Senna/Docusate Sodium (Sennosides/Docusate Sodium Tablet) 2 tab PO BID [facility] Last Admin: 05/27/22 08:32 Dose: Not Given Sodium Biphosphate/Sodium Phosphate (Sodium Phosphate,[place]-Dibasic 133 Ml Enema) 133 ml NC ONCE [facility] Sodium Chloride (0.9 % Sodium Chloride Flush 3 Ml Syringe) 3 ml IVFLUSH QSHIFT [facility] Last Admin: 05/27/22 15:40 Dose: Not Given Home Medications Medication Instructions Recorded Confirmed Type atorvastatin 10 mg tablet 1 tab PO DAILY@1700 02/21/20 05/17/22 History carvedilol 12.5 mg tablet 1 tab PO BID@0800,1700 02/21/20 05/17/22 History citalopram 10 mg tablet 1 tab PO DAILY 02/21/20 05/17/22 History citalopram 20 mg tablet 1 tab PO DAILY 02/21/20 05/17/22 History furosemide 20 mg tablet 1 tab PO DAILY 02/21/20 05/17/22 History hydroxyzine HCl 25 mg tablet 25 mg PO DAILY 02/21/20 05/17/22 History latanoprost 0.005 % eye drops 1 drp ophthalmic-Right DAILY@1700 02/21/20 05/17/22 History acetaminophen 500 mg tablet 1,000 mg PO TID@0800,1300,1700 12/07/21 05/17/22 History calcium carbonate 200 mg calcium 200 mg PO TID@0800,1200,1700 12/07/21 05/17/22 History (500 mg) chewable tablet (Calcium Antacid) cholecalciferol (vitamin D3) 1,250 1,250 mcg PO QMONTH 12/07/21 05/17/22 History mcg (50,000 unit) capsule erythromycin 5 mg/gram (0.5 %) eye 1 appl ophthalmic-Left MOTH@0900 12/07/21 05/17/22 History ointment insulin aspart U-100 100 unit/mL See Protocol subcut QIDACHS 12/07/21 05/17/22 History subcutaneous solution (Novolog U-100 Insulin aspart) insulin detemir U-100 100 unit/mL 10 unit subcut DAILY 12/07/21 05/17/22 History subcutaneous solution (Levemir U-100 Insulin) lisinopril 5 mg tablet 1 tab PO DAILY 12/07/21 05/17/22 History melatonin 5 mg tablet 5 mg PO DAILY@1700 12/07/21 05/17/22 History sucralfate 1 gram tablet 1 g PO QID 12/20/21 05/17/22 History glucagon 1 mg solution for 1 mg subcut Q20M PRN Hypoglycemia 03/28/22 05/17/22 History injection fluticasone propionate 50 2 spray intranasal DAILY 04/24/22 05/17/22 History mcg/actuation nasal spray,suspension magnesium oxide 400 mg PO DAILY 05/17/22 05/17/22 History pentoxifylline 400 mg 400 mg PO BID 05/17/22 05/17/22 History tablet,extended release Allergies Allergy/AdvReac Type Severity Reaction Status Date / Time colchicine Allergy Unknown diarrhea Verified 05/17/22 13:56 Exam Vital signs: Vital Signs Temp 97.3 F 05/27/22 15:30 Pulse 59 05/27/22 15:30 Resp 20 05/27/22 15:30 BP 146/68 H 05/27/22 15:30 Pulse Ox 99 05/27/22 15:30 O2 Del Method Room Air 05/27/22 15:30 O2 Flow Rate 6 05/18/22 11:15 Intake & Output 04/10/1105/27/22 05/28/22 06:59 18:59 06:59 Intake Total 0 3487.310 2050.667 / 1356.667 Output Total Balance -1 / 8999.524 4506.667 / 1356.667 Urine Output (Average ml/kg/hr) 0.00 0.00 Intake: Intake, Oral Amount 360 / 360 Intake, IV Amount 0 / 1454.167 996.667 / 996.667 Dextrose 5 % and Lactated Ring 0 / 954.167 996.667 / 996.667 1,000 ml @ 50 mls/hr IVCONT . Q20H XI Rx#:[id number] Output: Output, Urine Amount Other: Number of Incontinent Voids 1 Number of Unmeasured Voids 2 Number of Bowel Movements 1 Urine Pull Up Urine Color Yellow Last Bowel Movement 05/27/22 Stool Incontinent Stool Amount Small Stool Color Brown Stool Consistency Soft Weight 73.3 kg BMI result Body Mass Index 21.9 - Constitutional Present: no acute distress, mild distress - Routine HEENT Exam Head: Present: atraumatic, normal inspection - Routine Neck Exam Present: full ROM - Routine Respiratory Exam Present: decreased breath sounds, CTAB - Routine Cardiovascular Exam Cardiovascular: Present: RRR, S1, S2 - Routine Abdominal Exam Present: diminished bowel sounds, normal bowel sounds, nontender - Routine Extremities Exam Present: nontender - Routine Skin Exam Present: intact - Routine Neurological Exam Present: alert, oriented X3 - Detailed Neurological Exam: Coma Scale Eye Opening: Spontaneous (4) Data - Labs CBC & Chem 7: 05/25/22 06:10 05/26/22 08:50 Labs: 05/17/22 14:15 0.9 % Sodium Chloride [Ns] 1,000 ml IV 999 mls/hr 05/17/22 14:16 ECG 12 lead EKG Stat EKG Documentation DIRECTED 05/17/22 14:17 CT abdomen pelvis w IV con Stat ondansetron HCL [Zofran] 4 mg IVPUSH ONCE ONE 05/17/22 14:42 Ammonia Stat COVID-19 ID NOW ([place]) Stat Complete Blood Count Auto Diff Stat Comprehensive Met. Panel Stat Free T4 (Free Thyroxine) Stat Lactic Acid Stat Lipase Stat Prothrombin Time INR Stat TSH reflex Free T4 Stat 05/17/22 15:02 Blood Culture X2 [BC] Stat 05/17/22 15:28 iohexoL 350 MG/ML [Omnipaque 350 MG/ML] 100 ml IV ONCE ONE 05/17/22 16:09 Troponin-I High Sensitivity Stat 05/17/22 17:55 UA ClnCatch+Micro w/rflx Cult Stat 05/17/22 18:14 Urine Culture Routine 05/17/22 18:15 Code Status Routine Melatonin 6 mg PO BEDTIME PRN 05/17/22 18:16 Intake and Output Q8HR cefTRIAXone sodium [Rocephin] 1 gm 0.9 % Sodium Chloride [Ns] 50 ml IV ONCE 05/17/22 18:17 Admission Assessment - Modified NOW 05/17/22 18:21 Clear Liquid Diet 05/17/22 18:30 Lactated Ringers [Lr] 1,000 ml IVCONT 50 mls/hr Potassium Chloride/H20 10 meq in 100 ml IV Q1H 05/17/22 18:31 cefTRIAXone sodium [Rocephin] 1 gm .ROUTE .STK-MED ONE 05/17/22 23:42 Glucose, Whole Blood Routine 05/18/22 08:00 Glucose, Whole Blood Routine 05/18/22 09:49 NPO Diet 05/18/22 10:19 Glucose, Whole Blood Routine 05/18/22 10:30 Colchicine [Colcrys] 0.3 mg PO Q48H 05/18/22 10:54 Surgical [PTH] Routine 05/18/22 11:07 propofoL [Diprivan] 200 mg IVPUSH .STK-MED ONE 05/18/22 12:19 Clear Liquid Diet 05/18/22 12:48 Glucose, Whole Blood Routine 05/18/22 13:26 BMP [Basic Metabolic Panel] Routine 05/18/22 14:51 Milk of Magnesia [Mom] 15 ml PO ONCE ONE 05/18/22 16:08 Glucose, Whole Blood Routine 05/18/22 16:30 Omeprazole [PriLOSEC] 40 mg PO BID@0630,1630 05/18/22 17:28 cefTRIAXone sodium [Rocephin] 1 gm .ROUTE .STK-MED ONE 05/18/22 18:00 cefTRIAXone sodium [Rocephin] 1 gm 0.9 % Sodium Chloride [Ns] 50 ml IV Q24H 05/18/22 19:37 Glucose, Whole Blood Routine 05/19/22 07:36 Glucose, Whole Blood Routine 05/19/22 09:00 Magnesium Oxide [Mag-Ox] 400 mg PO DAILY 05/19/22 11:11 Glucose, Whole Blood Routine 05/19/22 15:08 Glucose, Whole Blood Routine 05/19/22 16:00 Doxycycline Hyclate [Vibramycin] 100 mg 0.9 % Sodium Chloride [Ns] 250 ml IV Q12H 05/19/22 16:19 Doxycycline Hyclate [Vibramycin] 100 mg IV .[facility] ONE 05/19/22 16:30 Omeprazole Oral Susp [PriLOSEC Oral Susp] 40 mg PO BID@0630,1630 05/19/22 19:51 Glucose, Whole Blood Routine 05/20/22 04:33 Doxycycline Hyclate [Vibramycin] 100 mg IV .[facility] ONE 05/20/22 05:04 Glucose, Whole Blood Routine 05/20/22 07:05 Glucose, Whole Blood Routine 05/20/22 08:15 Lactated Ringers [Lr] 1,000 ml IVCONT 125 mls/hr 05/20/22 11:10 Glucose, Whole Blood Routine 05/20/22 15:40 Glucose, Whole Blood Routine 05/20/22 16:00 Doxycycline Hyclate [Vibramycin] 100 mg 0.9 % Sodium Chloride [Ns] 250 ml IV Q12H 05/20/22 16:07 Doxycycline Hyclate [Vibramycin] 100 mg IV .[facility] ONE 05/20/22 19:36 Glucose, Whole Blood Routine 05/21/22 CT chest w IV con Routine 05/21/22 03:38 Doxycycline Hyclate [Vibramycin] 100 mg IV .[facility] ONE 05/21/22 06:15 Basic Metabolic Panel Routine Complete Blood Count no Diff Routine Magnesium Routine Phosphorus Routine 05/21/22 07:19 Glucose, Whole Blood Routine 05/21/22 07:23 Magnesium Sulfate/H2O 2 gm in 50 ml IV ONCE 05/21/22 07:30 Potassium Chloride/H20 10 meq in 100 ml IV Q1H 05/21/22 10:46 Potassium Chloride Packet [Klor-Con Packet] 40 meq PO ONCE ONE 05/21/22 10:48 Diabetic Diet 05/21/22 11:26 Glucose, Whole Blood Routine 05/21/22 15:26 iohexoL 350 MG/ML [Omnipaque 350 MG/ML] 100 ml IV ONCE ONE 05/21/22 16:38 Glucose, Whole Blood Routine 05/21/22 17:00 Doxycycline Hyclate [Vibramycin] 100 mg IV .[facility]-MED ONE 05/21/22 20:04 Glucose, Whole Blood Routine 05/22/22 02:57 Doxycycline Hyclate [Vibramycin] 100 mg IV .[facility] ONE 05/22/22 06:34 Albumin Level Routine Basic Metabolic Panel Routine Complete Blood Count no Diff Routine Magnesium Routine 05/22/22 07:20 Glucose, Whole Blood Routine 05/22/22 08:06 Magnesium Sulfate/H2O 2 gm in 50 ml IV ONCE Potassium Chloride Packet [Klor-Con Packet] 40 meq PO ONCE ONE 05/22/22 09:46 Regular Diet 05/22/22 10:00 KCl 20 mEq in 0.45% Sod 20 meq in 1,000 ml IVCONT 100 mls/hr 05/22/22 11:22 Glucose, Whole Blood Routine 05/22/22 15:19 Glucose, Whole Blood Routine 05/22/22 15:32 Doxycycline Hyclate [Vibramycin] 100 mg IV .[facility]-MED ONE 05/22/22 19:37 Glucose, Whole Blood Routine 05/23/22 03:23 Doxycycline Hyclate [Vibramycin] 100 mg IV .[facility] ONE 05/23/22 06:37 Basic Metabolic Panel Routine Magnesium Routine 05/23/22 07:32 Glucose, Whole Blood Routine 05/23/22 11:25 Glucose, Whole Blood Routine 05/23/22 14:47 Glucose, Whole Blood Routine 05/23/22 15:55 Doxycycline Hyclate [Vibramycin] 100 mg IV .[facility] ONE 05/23/22 16:35 Glucose, Whole Blood Routine 05/23/22 19:51 Glucose, Whole Blood Routine 05/24/22 00:01 NPO Diet 05/24/22 04:41 Doxycycline Hyclate [Vibramycin] 100 mg IV .[facility] ONE 05/24/22 07:00 Glucose, Whole Blood Routine 05/24/22 08:00 Dextrose 5 % and 0.45 % NaCl [D51/2Ns] 1,000 ml IVCONT 100 mls/hr 05/24/22 10:39 iohexoL 300 MG/ML [Omnipaque 300 MG/ML] 100 ml .ROUTE .K-MED ONE 05/24/22 10:45 Glucose, Whole Blood Routine 05/24/22 10:55 Tube Feeding Diet 05/24/22 11:55 Clear Liquid Diet 05/24/22 16:01 Glucose, Whole Blood Routine 05/25/22 04:43 Doxycycline Hyclate [Vibramycin] 100 mg IV .[facility] ONE 05/25/22 06:10 Basic Metabolic Panel Routine Complete Blood Count no Diff Routine Magnesium Routine Phosphorus Routine 05/25/22 07:38 Glucose, Whole Blood Routine 05/25/22 08:00 XR KUB Routine 05/25/22 08:36 Tube Feeding Diet 05/25/22 09:31 Magnesium Sulfate/H2O 2 gm in 50 ml IV ONCE 05/25/22 09:32 Potassium Chloride Packet [Klor-Con Packet] 40 meq PO ONCE ONE 05/25/22 11:34 Glucose, Whole Blood Routine 05/25/22 15:06 Doxycycline Hyclate [Vibramycin] 100 mg IV .[facility] 05/25/22 16:10 Glucose, Whole Blood Routine 05/25/22 20:42 Glucose, Whole Blood Routine 05/26/22 05:05 Doxycycline Hyclate [Vibramycin] 100 mg IV .[facility] ONE 05/26/22 07:13 Glucose, Whole Blood Routine 05/26/22 08:50 Basic Metabolic Panel Urgent Magnesium Routine 05/26/22 10:25 Tube Feeding Diet 05/26/22 10:55 Glucose, Whole Blood Routine 05/26/22 16:54 Glucose, Whole Blood Routine 05/26/22 16:57 Doxycycline Hyclate [Vibramycin] 100 mg IV .[facility] ONE 05/26/22 17:34 NPO Diet 05/27/22 07:14 Glucose, Whole Blood Routine 05/27/22 11:37 Glucose, Whole Blood Routine 05/27/22 16:35 Glucose, Whole Blood Routine Laboratory Last Values WBC 4.2 X10*3/uL (4.8-10.8) L 05/25/22 06:10 RBC 3.10 X10*6/uL (4.60-5.80) L 05/25/22 06:10 Hgb 9.4 g/dl (14.0-18.0) L 05/25/22 06:10 Hct 28.4 % (42.0-52.0) L 05/25/22 06:10 MCV 91.6 fL (80.0-98.0) 05/25/22 06:10 MCH 30.3 pg (27.0-33.0) 05/25/22 06:10 MCHC 33.1 g/dl (31.0-36.0) 05/25/22 06:10 RDW 16.3 % (11.0-16.0) H 05/25/22 06:10 Plt Count 40 X10*3/uL (160-400) L 05/25/22 06:10 MPV Not Reportable 05/25/22 06:10 Immature Gran % (Auto) 0.3 % (0.0-0.4) 05/17/22 14:42 Neut % (Auto) 67.4 % (45-73) 05/17/22 14:42 Lymph % (Auto) 16.2 % (20-40) L 05/17/22 14:42 [place] % (Auto) 10.9 % (2-11) 05/17/22 14:42 Eos % (Auto) 4.3 % (0-4) H 05/17/22 14:42 Baso % (Auto) 0.9 % (0-2) 05/17/22 14:42 Lymph # (Auto) 1.1 X10*3/uL (1.2-4.9) L 05/17/22 14:42 [place] # (Auto) 0.7 X10*3/uL (0.1-1.2) 05/17/22 14:42 Eos # (Auto) 0.3 X10*3/uL (0.0-0.4) 05/17/22 14:42 Baso # (Auto) 0.1 X10*3/uL (0.0-0.2) 05/17/22 14:42 Abs Immat Gran (auto) 0.02 X10*3/uL (0.00-0.03) 05/17/22 14:42 Absolute Neuts (auto) 4.4 x10*3/uL (2.0-8.3) 05/17/22 14:42 Absolute Nucleated RBC 0.000 X10*3/uL (0.0-0.012) 05/25/22 06:10 Nucleated RBC % (auto) 0.0 /100WBC (0.0-0.2) 05/25/22 06:10 PT 14.7 SEC (10.0-13.1) H 05/17/22 14:42 INR 1.3 (0.9-1.1) H 05/17/22 14:42 Sodium 144 mmol/L (135-145) 05/26/22 08:50 Potassium 3.8 mmol/L (3.3-5.1) D 05/26/22 08:50 Chloride 109 mmol/L (96-108) H 05/26/22 08:50 Carbon Dioxide 27 mmol/L (22-29) 05/26/22 08:50 Anion Gap 12 (12-20) 05/26/22 08:50 BUN 4 mg/dL (9-16) L 05/26/22 08:50 Creatinine 0.62 mg/dL (0.5-1.4) 05/26/22 08:50 Estim Creat Clear Calc 116.5 05/26/22 08:50 Estimated GFR > 60 05/26/22 08:50 POC Glucose 99 mg/dL (60-115) 05/27/22 16:35 Random Glucose 98 mg/dL (60-115) 05/26/22 08:50 Lactic Acid 1.7 mmol/L (0.5-2.0) 05/17/22 14:42 Calcium 7.7 mg/dL (8.4-10.2) L D 05/26/22 08:50 Phosphorus 3.4 mg/dL (2.7-4.5) 05/25/22 06:10 Magnesium 1.8 mg/dL (1.6-2.6) 05/26/22 08:50 Total Bilirubin 3.0 mg/dL (0.0-1.0) H 05/17/22 14:42 AST 39 U/L (5-37) H 05/17/22 14:42 ALT 19 U/L (0-40) 05/17/22 14:42 Alkaline Phosphatase 118 U/L (39-117) H 05/17/22 14:42 Ammonia 22 umol/L (13-55) 05/17/22 14:42 Troponin I High Sens 8.3 ng/L (<3.5-35.0) 05/17/22 16:09 Total Protein 6.6 g/dL (6.5-8.0) 05/17/22 14:42 Albumin 3.0 g/dL (3.5-5.0) L 05/22/22 06:34 Lipase 19 U/L (8-78) 05/17/22 14:42 TSH 0.21 uIU/mL (0.32-4.0) L 05/17/22 14:42 Free T4 1.05 ng/dL (0.71-1.85) 05/17/22 14:42 Urine Color Dark Yellow 05/17/22 17:55 Urine Appearance Cloudy 05/17/22 17:55 Urine pH 6.0 (5.0-9.0) 05/17/22 17:55 Ur Specific [place] >= 1.030 (1.005-1.025) H 05/17/22 17:55 Urine Protein 30 (1+) mg/dL (Neg-Trace) H 05/17/22 17:55 Urine Glucose (UA) Negative mg/dL (Negative) 05/17/22 17:55 Urine Ketones 15 mg/dL (Negative) 05/17/22 17:55 Urine Blood Small (1+) (Negative) H 05/17/22 17:55 Urine Nitrite Positive (Negative) H 05/17/22 17:55 Ur Leukocyte Esterase Moderate (2+) (Negative) H 05/17/22 17:55 Urine RBC 11-20 /HPF (0-2) H 05/17/22 17:55 Urine WBC >50 /HPF (0-5) H 05/17/22 17:55 Ur Squamous Epith Cells 0-2 /HPF (0-2) 05/17/22 17:55 Urine Bacteria 1+ (None Seen) 05/17/22 17:55 Hyaline Casts 0-2 /LPF (0-2) 05/17/22 17:55 COVID-19 (ARTURO) Negative (Negative) 05/17/22 14:42 COVID-19 Clin Com See Note 05/17/22 14:42 - Imaging Radiologist's impression: ITS Impressions Abdomen/Pelvis CT 05/17/22 15:31 IMPRESSION: 1. No evidence of metastatic disease in the abdomen or pelvis. 2. Cirrhosis with portal hypertension with extensive perisplenic varices and a large left splenorenal shunt. 3. Nonobstructing 7 mm right renal stone. 4. Other incidental findings including some minimal tree-in-bud opacities in the right lung base and a 6 mm pleural-based left lower lobe nodule. Fleischner guidelines were followed. Chest CT 05/21/22 15:55 IMPRESSION: Mild dilation of mid and distal esophagus with air-fluid level, with a small annular thickening distal esophagus/GE junction. No abnormal mediastinal or axillary lymphadenopathy. There are no lung nodules seen. Fleischner guidelines were followed. Fluoroscopy 05/24/22 10:40 IMPRESSION: Placement of weighted tip nasojejunal tube to the level of the antrum of the stomach as described. KUB X-Ray 05/25/22 08:15 IMPRESSION: Tip of nasogastric tube at the level of the pylorus. Assessment and Plan Patient Active problem list reviewed?: Yes (1) Esophageal mass Status: Acute Assessment and plan: Will await aa tissue diagnosis and feeding tube. - Time Spent With Patient Time Spent with Patient (in minutes): 15
--- NOTE | 2022-05-28 04:05 | PC.NURSE ---
Patient has been non complaint with vital signs, POC and refusing Medications. This RN educated patient on all the consequences of not taking his medication, and having his Blood sugar checked. he stated I know when I do not feel right, I would tell you.
[2022-05-28 06:31] LABS: Anion Gap 14 (12-20); Blood Urea Nitrogen 5 mg/dL (9-16); Calcium 8.2 mg/dL (8.4-10.2); Carbon Dioxide 27 mmol/L (22-29); Chloride 105 mmol/L (96-108); Creatinine Clr Calc Pharmacy 111.2; Estimated Glomerular Filt Rate > 60; Glucose Random 94 mg/dL (60-115); Magnesium 1.5 mg/dL (1.6-2.6); Potassium 3.7 mmol/L (3.3-5.1); Sodium 142 mmol/L (135-145)
[2022-05-28 07:54] VITALS: BP 160/72; PULSE 67; RESP 20; TEMP 36.4; O2SAT 100
[2022-05-28 08:55] LABS: Glucose, Whole Blood 93 mg/dL (60-115)
--- NOTE | 2022-05-28 10:35 | HO.PM.IMPN ---
Subjective Subjective Date of Service: 05/28/22 Interval History: seen and examined this morning follow up for obstructing GE junction mass no overnight events still declining am meds not happy with clear/full liquid options. able to tolerate some liquids no abdominal pain Review of Systems Review of Systems: Yes all other systems are reviewed and are negative Constitutional Constitutional: Denies chills and Denies fever(s) Cardiovascular Cardiovascular: Denies chest pain, Denies palpitations and Denies dyspnea Respiratory Respiratory: Denies cough and Denies dyspnea Gastrointestinal Gastrointestinal: Denies abdominal pain Endocrine Endocrine: Denies palpitations Physical Exam Vital Signs: Vital Signs: Last Vital Signs Temp 97.5 F 05/28/22 07:54 Pulse 67 05/28/22 07:54 Resp 20 05/28/22 07:54 BP 160/72 H 05/28/22 07:54 Pulse Ox 100 05/28/22 07:54 O2 Del Method Room Air 05/28/22 07:54 O2 Flow Rate 6 05/18/22 11:15 BMI result Body Mass Index 21.9 Const: General: comfortable, alert and awake Nutritional Appearance: average body habitus Eyes: Other: left eye blind Resp: Effort & Inspection: normal respiratory effort and able to speak in complete sentences GI: Inspection: No distended Palpation (GI): Soft to palpation and nontender Objective Data Active Medications Acetaminophen (Acetaminophen Supp 650 Mg Supp.Rect) 650 mg IN Q6H PRN PRN Reason: Pain, Mild (Pain Scale 1-3) Calcium Carbonate (Calcium Carbonate 500 Mg Tablet) 500 mg PO TID [facility] Last Admin: 05/27/22 21:25 Dose: Not Given Documented By: ANTONY Non-Admin Reason: Patient Refused Carvedilol (Carvedilol 6.25 Mg Tablet) 6.25 mg PO BID [facility]; Protocol Last Admin: 05/27/22 21:25 Dose: Not Given Documented By: ANTONY Non-Admin Reason: Patient Refused Erythromycin (Erythromycin Base 0.5% Oph Oin 1 Gm Tube) 0.25 cm EYE-LEFT MOTH@0900 [facility] Last Admin: 05/25/22 08:47 Dose: 0.25 cm Documented By: NATE Escitalopram Oxalate (Escitalopram Oxalate 10 Mg Tablet) 10 mg PO DAILY [facility] Last Admin: 05/28/22 08:14 Dose: Not Given Documented By: JEFF Non-Admin Reason: Patient Refused Fluticasone Propionate (Fluticasone Propionate Nasal 16 Gm [place]) 2 spray NOSTRIL-B DAILY [facility] Last Admin: 05/27/22 08:31 Dose: Not Given Documented By: JEFF Non-Admin Reason: NPO Glucose (Glucose Gel 15 Gm Gel..Gram.) 15 gm PO Q15M PRN; Protocol PRN Reason: per Hypoglycemia Standing Ord. Dextrose (D10) 250 mls @ 750 mls/hr IV Q15M PRN; Protocol PRN Reason: per Hypoglycemia Standing Ord. Insulin Human Lispro (Insulin Lispro 100 Unit/Ml 3 Ml Vial) 0 unit SUBCUT QIDACHS [facility]; Protocol Last Admin: 05/28/22 08:13 Dose: Not Given Documented By: JEFF Non-Admin Reason: No Insulin Coverage Lactulose (Lactulose 20 Gm/30 Ml Solution) 20 gm PO BID [facility] Last Admin: 05/28/22 08:14 Dose: Not Given Documented By: JEFF Non-Admin Reason: Patient Refused Latanoprost (Latanoprost 0.005 % Ophth Kathy 2.5 Ml Drops) 1 drop EYE-RIGHT DAILY@1700 [facility] Last Admin: 05/27/22 17:14 Dose: 1 drop Documented By: JEFF Magnesium Oxide (Magnesium Oxide 400 Mg Tablet) 400 mg PO BID [facility] Last Admin: 05/28/22 08:14 Dose: Not Given Documented By: JEFF Non-Admin Reason: Patient Refused Melatonin (Melatonin 3 Mg Tablet) 6 mg PO DAILY@1800 PRN PRN Reason: Insomnia Last Admin: 05/26/22 18:14 Dose: 6 mg Documented By: KALA Omeprazole (Omeprazole 40 Mg Capsule.) 40 mg PO BID@0630,1630 [facility] Last Admin: 05/28/22 08:13 Dose: Not Given Documented By: JEFF Non-Admin Reason: NPO Ondansetron HCl (Ondansetron Hcl 4 Mg/2 Ml Vial) 4 mg IVPUSH Q8H PRN PRN Reason: Nausea and Vomiting Polyethylene Glycol (Polyethylene Glycol 3350 17 Gm Powd.Pack) 17 gm PO DAILY [facility] Last Admin: 05/28/22 08:14 Dose: Not Given Documented By: JEFF Non-Admin Reason: Patient Refused Senna/Docusate Sodium (Sennosides/Docusate Sodium Tablet) 2 tab PO BID [facility] Last Admin: 05/28/22 08:14 Dose: Not Given Documented By: JEFF Non-Admin Reason: Patient Refused Sodium Biphosphate/Sodium Phosphate (Sodium Phosphate,Luna-Dibasic 133 Ml Enema) 133 ml IN ONCE XI Sodium Chloride (0.9 % Sodium Chloride Flush 3 Ml Syringe) 3 ml IVFLUSH QSHIFT [facility] Last Admin: 05/27/22 22:27 Dose: Not Given Documented By: ANTONY Non-Admin Reason: Previously Administered Labs 05/25/22 06:10 05/28/22 05:33 Labs: Laboratory Results - last 24 hr 05/27/22 05/27/22 05/28/22 11:37 16:35 05:33 Anion Gap 14 Estim Creat Clear Calc 111.2 Estimated GFR > 60 POC Glucose 96 99 Random Glucose 94 Calcium 8.2 L D Magnesium 1.5 L 05/28/22 07:56 Anion Gap Estim Creat Clear Calc Estimated GFR POC Glucose 93 Random Glucose Calcium Magnesium Assessment and Plan (1) Esophageal mass: Status: Acute Plan 66yo M long-term resident of [facility] with paroxysmal AF (not on AC due to hx upper GI), CHF, BPH, COPD, DM2, GERD, hypothyroidism, depression, ITP, PAD, L eye blindness, and gout presented with several months of intractable nausea and vomiting with weight loss noted to have mild hypokalemia and anterior lateral ST changes ultimately diagnosed with obstructing esophageal mass # esophageal mass with severe esophageal obstruction # moderate protein-calorie malnutrition - barium swallow done at [facility] showed esophageal mass extending towards GE junction causing high-grade stricture and partial obstruction and mild esophageal dysmotility - EGD 05/[address] Zuniga showed obstructing GE junction mass; biopsy showed high-grade dysplasia with no underlying dysplasia - suspect sampling limitation given appearance of mass on EGD; immunostains [mismatch repair protein and her2/bethany] pending - will need EUS for staging + possible endoscopic resection [likely endoscopic submucoal dissection] + cryo which has to be done at [facility] [[facility] doesn't have ESD + cryo capability]. Dr Zuniga working to arrange this as outpt. - Medical Oncology consulted. No evidence for metastatic disease on CT chest. - continue PPI bid PO - NJ tube placed 05/24, nutrition consultation for tube feed regimen - unfortunately NJ tube came out 05/26 - will need repeat feeding tube placed on Sunday. will trial full liquids for now # MSSA UTI - initially treated with ceftriaxone. started doxycycline 05/20 and completed course # hypokalemia # hypoMg # hypoCa - repleted ? #lateral ST changes no chest pain, negative trop no further work up planned # constipation - MiraLax, lactulose, docusate/senna #DM2 - hold basal insulin, continue correction-dose lispro # HTN - continue carvedilol, hold lisinopril + furosemide # paroxysmal AF - continue carvedilol - no AC due to bleeding in past + ITP # unspecified CHF - not in acute exacerbation; hold furosemide as above # mood disorder - escitalopram # chronic normocytic anemia - Hb stable # ITP - platelet count stable # GERD - PPI # PAD - hold pentoxifylline # hx gout - colchine prn # VTE ppx: SCDs # dispo: LTC attending - Dr. May In my clinical judgment, the patient requires continued inpatient hospitalization for the following reasons: feeding tube placement and initiation of feeding Time Spent With Patient Time: Total time managing care of this patient today ____ minutes. Quality Stroke Does the patient have a stroke diagnosis?: No VTE Prior VTE?: No VTE Risk Level:: Medical - moderate - high VTE Device Contraindication: N/A - Device Ordered VTE Drug Contraindication: Treatment Not Indicated
[2022-05-28 11:09] VITALS: BP 139/63; PULSE 68; RESP 20; TEMP 36.4; O2SAT 100
[2022-05-28 12:19] LABS: Glucose, Whole Blood 84 mg/dL (60-115)
[2022-05-28] MEDS: Fluticasone Propionate Nasal 16 GM SPRAY 2 SPRAY NOSTRIL-B (13:34)
[2022-05-28] MEDS: 0.9 % Sodium Chloride Flush 3 ML SYRINGE IVFLUSH (13:36)
[2022-05-28 15:33] VITALS: BP 156/67; PULSE 75; RESP 20; TEMP 36.9; O2SAT 100
[2022-05-28 16:30] LABS: Glucose, Whole Blood 75 mg/dL (60-115)
--- NOTE | 2022-05-28 16:33 | PC.NURSE ---
unable to get IV peripheral IV access ,4 nursers tried with no results , provider Shyann portillo
[2022-05-28 19:01] VITALS: BP 134/63; PULSE 56; RESP 18; TEMP 36.7; O2SAT 99
[2022-05-28] MEDS: Latanoprost 0.005 % Ophth Sol 2.5 ML DROPS 1 DROP EYE-RIGHT (19:07)
[2022-05-28 19:10] LABS: Glucose, Whole Blood 84 mg/dL (60-115)
[2022-05-29 06:45] LABS: Hematocrit 35.1 % (42.0-52.0); Hemoglobin 11.6 g/dl (14.0-18.0); Mean Corpuscular Hemoglobin 29.9 pg (27.0-33.0); Mean Corpuscular Volume 90.5 fL (80.0-98.0); Mean Platelet Volume 13.8 fL (9.4-12.4); Red Blood Count 3.88 X10*6/uL (4.60-5.80); Red Cell Distribution Width 16.6 % (11.0-16.0); White Blood Count 5.2 X10*3/uL (4.8-10.8)
[2022-05-29 06:46] LABS: Platelet Count 58 X10*3/uL (160-400)
[2022-05-29 07:02] LABS: Anion Gap 15 (12-20); Blood Urea Nitrogen 6 mg/dL (9-16); Calcium 8.3 mg/dL (8.4-10.2); Carbon Dioxide 28 mmol/L (22-29); Chloride 102 mmol/L (96-108); Creatinine Clr Calc Pharmacy 106.2; Estimated Glomerular Filt Rate > 60; Glucose Random 66 mg/dL (60-115); Magnesium 1.6 mg/dL (1.6-2.6); Potassium 3.9 mmol/L (3.3-5.1); Sodium 141 mmol/L (135-145)
--- NOTE | 2022-05-29 07:24 | P.CDIM_ITS ---
PROVIDER RESPONSE TEXT: To clarify, the appropriate diagnosis supported by the clinical indicators: Other (explain): moderate malnutrition QUERY TEXT: PHYSICIAN'S DOCUMENTATION REQUEST Date of Query: 05/19/2022 08:59 AM EDT Patient Name: Darren Deleon Admit Date: 05/17/2022 Dear Mary Troncoso, A review of the medical record indicates additional documentation may be needed. Please review below and update the documentation accordingly. Additional clinical indicators from the record include: Documentation includes the diagnosis of unintentional weight loss per GI consult 05/18/22. HT : 6 FT WT : 73.3 kg BMI 21.9 Per MD progress note 05/18/22: intractable nausea, vomiting of several months duration associated with weight loss, need alternate n utrition EGD and biopsies done 05/18/22 To ensure the quality of the medical record, based on the above information and the recognized standa rd for (specify malnutrition severity), could you please verify which of the following diagnoses best reflects the pa ronald's nutritional status. Specify severity) malnutrition is/was present and is a clinical diagnosis (please include additional support in the medical record) No nutritional deficiency Other (explain) Clinically unable to determine (explain) Thank you, Shiloh Wood RN Use of terms such as suspected, likely, concern for, or probable (associated with a specific diagnosi s that is being evaluated, monitored, or treated as if it exists) are acceptable and can be coded in the inpatient se tting, when documented at the time of discharge. Please use your independent medical judgment in providing your response. THIS QUERY IS PART OF THE PERMANENT MEDICAL RECORD
[2022-05-29 07:37] LABS: Glucose, Whole Blood 67 mg/dL (60-115)
[2022-05-29] MEDS: Dextrose 10 % 250 ML 750 ML IV (07:45)
[2022-05-29] MEDS: 0.9 % Sodium Chloride Flush 3 ML SYRINGE IVFLUSH ×3 (07:56→20:19)
[2022-05-29 08:00] VITALS: BP 152/65; PULSE 77; RESP 18; TEMP 35.7; O2SAT 100
[2022-05-29] MEDS: Erythromycin Base 0.5% Oph Oin 1 GM TUBE 0.25 CM EYE-LEFT (08:27)
[2022-05-29] MEDS: Fluticasone Propionate Nasal 16 GM SPRAY 2 SPRAY NOSTRIL-B (08:28)
[2022-05-29 08:38] LABS: Glucose, Whole Blood 161 mg/dL (60-115)
--- NOTE | 2022-05-29 09:53 | MHC.CLN ---
F/U PT LOST NJ TUBE ACCESS 05/26 TF D/C PT CURRENTLY NPO AWAITING NEW TF PLACEMENT WHEN TF TO RESUME; RECOMMEND GLUCERNA AT MAX GOAL RATE 90ML/HR WITH 120ML FREE WATER FLUSHES Q 8 HRS TO PROVIDE 2160KCALS (30KCALS/KG), 90G PROTEIN (1.2G/KG), 2202ML TOTAL WATER FROM FORMULA AND FLUSHES (30ML/KG) START FORMULA AT 20ML/HR AND INCREASE BY 10ML Q 4 HRS UNTIL MAX GOAL IS ACHIEVED DO NOT CHECK RESIDUALS WITH J TUBE TF APPROPRIATE TO PROMOTE WOUND HEALING-WILL ADJUST NEEDED MONITOR TOLERANCE AND LYTES
--- NOTE | 2022-05-29 10:41 | MHC.CM.PN ---
Per ROUNDS discussion, Patient is getting a N/G tube today and is not yet medically cleared for dc. Returning to LT @ [facility] is the goal and CM will continue to follow.
--- NOTE | 2022-05-29 11:15 | HO.PM.IMPN ---
Subjective Subjective Date of Service: 05/29/22 Interval History: seen and examined this morning follow up for obstructing GE junction mass no overnight events no pain plan for NGT Review of Systems Review of Systems: Yes all other systems are reviewed and are negative Constitutional Constitutional: Denies chills and Denies fever(s) Cardiovascular Cardiovascular: Denies chest pain, Denies palpitations and Denies dyspnea Respiratory Respiratory: Denies cough and Denies dyspnea Gastrointestinal Gastrointestinal: Denies abdominal pain Endocrine Endocrine: Denies palpitations Physical Exam Vital Signs: Vital Signs: Last Vital Signs Temp 96.3 F L 05/29/22 08:00 Pulse 77 05/29/22 08:00 Resp 18 05/29/22 08:00 BP 152/65 H 05/29/22 08:00 Pulse Ox 100 05/29/22 08:00 O2 Del Method Room Air 05/29/22 08:00 O2 Flow Rate 6 05/18/22 11:15 BMI result Body Mass Index 21.9 Appearing in no acute distress lung sounds are clear to auscultation heart regular rate rhythm, clear S1, S2 positive bowel sounds, abdomen is soft, nontender neuro patient is alert x3, no focal deficits Objective Data Active Medications Acetaminophen (Acetaminophen Supp 650 Mg Supp.Rect) 650 mg [place] Q6H PRN PRN Reason: Pain, Mild (Pain Scale 1-3) Calcium Carbonate (Calcium Carbonate 500 Mg Tablet) 500 mg PO TID [facility] Last Admin: 05/29/22 08:14 Dose: Not Given Documented By: CARMEN Non-Admin Reason: NPO Carvedilol (Carvedilol 6.25 Mg Tablet) 6.25 mg PO BID [facility]; Protocol Last Admin: 05/29/22 08:14 Dose: Not Given Documented By: CARMEN Non-Admin Reason: NPO Erythromycin (Erythromycin Base 0.5% Oph Oin 1 Gm Tube) 0.25 cm EYE-LEFT MOTH@0900 [facility] Last Admin: 05/29/22 08:27 Dose: 0.25 cm Documented By: CARMEN Escitalopram Oxalate (Escitalopram Oxalate 10 Mg Tablet) 10 mg PO DAILY [facility] Last Admin: 05/29/22 08:14 Dose: Not Given Documented By: CARMEN Non-Admin Reason: NPO Fluticasone Propionate (Fluticasone Propionate Nasal 16 Gm [place]) 2 spray NOSTRIL-B DAILY [facility] Last Admin: 05/29/22 08:28 Dose: 2 spray Documented By: CARMEN Glucose (Glucose Gel 15 Gm Gel..Gram.) 15 gm PO Q15M PRN; Protocol PRN Reason: per Hypoglycemia Standing Ord. Dextrose (D10) 250 mls @ 750 mls/hr IV Q15M PRN; Protocol PRN Reason: per Hypoglycemia Standing Ord. Last Infusion: 05/29/22 08:15 Dose: 0 mls/hr Documented By: CARMEN Insulin Human Lispro (Insulin Lispro 100 Unit/Ml 3 Ml Vial) 0 unit SUBCUT QIDACHS [facility]; Protocol Last Admin: 05/29/22 07:54 Dose: Not Given Documented By: CARMEN Non-Admin Reason: No Insulin Coverage Lactulose (Lactulose 20 Gm/30 Ml Solution) 20 gm PO BID [facility] Last Admin: 05/29/22 08:14 Dose: Not Given Documented By: CARMEN Non-Admin Reason: NPO Latanoprost (Latanoprost 0.005 % Ophth Kathy 2.5 Ml Drops) 1 drop EYE-RIGHT DAILY@1700 [facility] Last Admin: 05/28/22 19:07 Dose: 1 drop Documented By: SAUL Magnesium Oxide (Magnesium Oxide 400 Mg Tablet) 400 mg PO BID [facility] Last Admin: 05/29/22 08:14 Dose: Not Given Documented By: CARMEN Non-Admin Reason: NPO Melatonin (Melatonin 3 Mg Tablet) 6 mg PO DAILY@1800 PRN PRN Reason: Insomnia Last Admin: 05/26/22 18:14 Dose: 6 mg Documented By: KALA Omeprazole (Omeprazole 40 Mg Capsule.Dr) 40 mg PO BID@0630,1630 [facility] Last Admin: 05/29/22 06:00 Dose: Not Given Documented By: MANDY Non-Admin Reason: Patient Refused Ondansetron HCl (Ondansetron Hcl 4 Mg/2 Ml Vial) 4 mg IVPUSH Q8H PRN PRN Reason: Nausea and Vomiting Polyethylene Glycol (Polyethylene Glycol 3350 17 Gm Powd.Pack) 17 gm PO DAILY [facility] Last Admin: 05/29/22 08:14 Dose: Not Given Documented By: CARMEN Non-Admin Reason: NPO Senna/Docusate Sodium (Sennosides/Docusate Sodium Tablet) 2 tab PO BID [facility] Last Admin: 05/29/22 08:14 Dose: Not Given Documented By: CARMEN Non-Admin Reason: NPO Sodium Biphosphate/Sodium Phosphate (Sodium Phosphate,Prentiss-Dibasic 133 Ml Enema) 133 ml [place]V ONCE [facility] Sodium Chloride (0.9 % Sodium Chloride Flush 3 Ml Syringe) 3 ml IVFLUSH QSHIFT [facility] Last Admin: 05/29/22 07:56 Dose: 3 ml Documented By: CARMEN Labs 05/29/22 06:07 05/29/22 06:07 Labs: Laboratory Results - last 24 hr 05/28/22 05/28/22 05/28/22 11:11 16:04 19:05 MCV MCH MCHC RDW Plt Count MPV Absolute Nucleated RBC Nucleated RBC % (auto) Anion Gap Estim Creat Clear Calc Estimated GFR POC Glucose 84 75 84 Random Glucose Calcium Magnesium 05/29/22 05/29/22 05/29/22 06:07 06:07 07:26 MCV 90.5 MCH 29.9 MCHC 33.0 RDW 16.6 H Plt Count 58 L D MPV 13.8 H Absolute Nucleated RBC 0.000 Nucleated RBC % (auto) 0.0 Anion Gap 15 Estim Creat Clear Calc 106.2 Estimated GFR > 60 POC Glucose 67 Random Glucose 66 Calcium 8.3 L Magnesium 1.6 05/29/22 08:33 MCV MCH MCHC RDW Plt Count MPV Absolute Nucleated RBC Nucleated RBC % (auto) Anion Gap Estim Creat Clear Calc Estimated GFR POC Glucose 161 H Random Glucose Calcium Magnesium Assessment and Plan (1) Esophageal mass: Status: Acute Plan 66yo M long-term resident of [facility] with paroxysmal AF (not on AC due to hx upper GI), CHF, BPH, COPD, DM2, GERD, hypothyroidism, depression, ITP, PAD, L eye blindness, and gout presented with several months of intractable nausea and vomiting with weight loss noted to have mild hypokalemia and anterior lateral ST changes ultimately diagnosed with obstructing esophageal mass Esophageal mass with severe esophageal obstruction barium swallow done at [facility] showed esophageal mass extending towards GE junction causing high-grade stricture and partial obstruction and mild esophageal dysmotility EGD 05/[address] Zuniga showed obstructing GE junction mass; biopsy showed high-grade dysplasia with no underlying dysplasia will need EUS for staging + possible endoscopic resection [likely endoscopic submucoal dissection] + cryo which has to be done at [facility] transfer line called (05/29/22 0715) no bed capacity to take patient in transfer PPI NGT for nutrition, replaced 05/29/22 MSSA UTI s/p initially treated with ceftriaxone. started doxycycline 05/20 and completed course hypokalemia, hypoMg, hypoCa repleted ? lateral ST changes no chest pain, negative trop no further work up planned constipation MiraLax, lactulose, docusate/senna . DM2 ss HTN continue carvedilol hold lisinopril + furosemide paroxysmal AF continue carvedilol no AC due to bleeding in past + ITP unspecified CHF not in acute exacerbation; hold furosemide as above mood disorder escitalopram chronic normocytic anemia Hb stable ITP platelet count stable PAD hold pentoxifylline hx gout colchine prn moderate protein-calorie malnutrition BMI 21.9, no oral intake due to mass VTE ppx: SCDs Attending Dr. Bucio dispo: LTC continued hospitalization for the following reasons: feeding tube placement and initiation of feeding Time Spent With Patient Time: Total time managing care of this patient today ____ minutes. Quality Stroke Does the patient have a stroke diagnosis?: No VTE Prior VTE?: No VTE Risk Level:: Medical - moderate - high VTE Device Contraindication: N/A - Device Ordered VTE Drug Contraindication: Treatment Not Indicated
[2022-05-29 11:51] LABS: Glucose, Whole Blood 105 mg/dL (60-115)
--- NOTE | 2022-05-29 14:28 | P.PNGI_ITS ---
Subjective Subjective Date of Service: 05/29/22 Interval History: Pt unable to tolerate IR guided NJ tube placement today. Reluctant to retry EGD for enteric tube placement but eventually agrees with the contingency that if the tube gets lodged again, would likely need PPN. Path: C. Esophageal mass, biopsy: Superficial fragments of columnar mucosa with high -grade dysplasia at least, focal low grade dysplasia, and rare goblet cells. - MLH1: PRESERVED (Intact nuclear expression) - MSH2: PRESERVED (Intact nuclear expression) - MSH6: PRESERVED (Intact nuclear expression) - PMS2: PRESERVED (Intact nuclear expression) - Her2: 1+/NEGATIVE (~8%, weak membranous reactivity with cytoplasmic background staining) NOTE: Results are NEGATIVE for Mismatch repair defect-related tumor, however a small percentage of this form of cancer may not be identified by this technique. Correlation with the patient's presentation and family history is recommended. As these tumors are known to have a high degree of heterogeneity with Her2 staining, repeat testing on any excisional specimen is recommended. Critical Care Time (minutes): 0 Physical Exam Vital Signs: Vital Signs: Last Vital Signs Temp 96.3 F L 05/29/22 08:00 Pulse 77 05/29/22 08:00 Resp 18 05/29/22 08:00 BP 152/65 H 05/29/22 08:00 Pulse Ox 100 05/29/22 08:00 O2 Del Method Room Air 05/29/22 08:00 O2 Flow Rate 6 05/18/22 11:15 BMI result Body Mass Index 21.9 Gen appear: NAD Abd: soft, nontender, nondistended Objective Data Labs 05/29/22 06:07 05/29/22 06:07 Labs: Laboratory Results - last 24 hr 05/28/22 05/28/22 05/29/22 16:04 19:05 06:07 WBC 5.2 RBC 3.88 L D Hgb 11.6 L D Hct 35.1 L D MCV 90.5 MCH 29.9 MCHC 33.0 RDW 16.6 H Plt Count 58 L D MPV 13.8 H Absolute Nucleated RBC 0.000 Nucleated RBC % (auto) 0.0 Sodium Potassium Chloride Carbon Dioxide Anion Gap BUN Creatinine Estim Creat Clear Calc Estimated GFR POC Glucose 75 84 Random Glucose Calcium Magnesium 05/29/22 05/29/22 05/29/22 06:07 07:26 08:33 WBC RBC Hgb Hct MCV MCH MCHC RDW Plt Count MPV Absolute Nucleated RBC Nucleated RBC % (auto) Sodium 141 Potassium 3.9 Chloride 102 Carbon Dioxide 28 Anion Gap 15 BUN 6 L Creatinine 0.68 Estim Creat Clear Calc 106.2 Estimated GFR > 60 POC Glucose 67 161 H Random Glucose 66 Calcium 8.3 L Magnesium 1.6 05/29/22 11:45 WBC RBC Hgb Hct MCV MCH MCHC RDW Plt Count MPV Absolute Nucleated RBC Nucleated RBC % (auto) Sodium Potassium Chloride Carbon Dioxide Anion Gap BUN Creatinine Estim Creat Clear Calc Estimated GFR POC Glucose 105 Random Glucose Calcium Magnesium Microbiology Microbiology Results: Microbiology 05/17/22 15:02 Blood - Venous Blood Culture - Final No growth after 5 days. 05/17/22 14:42 Blood - Venous Blood Culture - Final No growth after 5 days. 05/17/22 18:14 Urine clean catch - Urine [facility] Urine Culture - Final Staphylococcus aureus Procedures Date of Service Date of Service: 05/29/22 Progress Note: A&P Assessment and plan (1) Dysphagia: Status: Acute (2) Esophageal stricture: Status: Acute (3) Esophageal mass: Status: Acute Plan Reviewed different options for nutrition including enteric tube vs parenteral nutrition. At this time, as further testing is needed including possible EUS to determine underlying malignancy +/- staging, would not recommend stent placement. Similarly G tube not recommended at this time for i) ? surgical resection and ii) risk of seeding through pull-through. Pt agreeable to repeat EGD for attempt to place nasoenteric tube however states that if this fails again, he would then like to opt for parenteral nutrition. Plan: - Can have clear liquid diet + clear ensure shakes as tolerated - NPO after MN - EGD tmrw with nasoenteric tube placement. Will also rebiopsy. - Due to high grade obstruction, will likely not be able to pass a therapeutic scope and therefore will opt for 8Fr [place] tube which can pass through the regular gastroscope channel. - Pt also has an appt at [facility] on 06/26. Time Spent With Patient Time: Total time managing care of this patient today ____ minutes. Quality Stroke Does the patient have a stroke diagnosis?: No VTE Prior VTE?: No VTE Risk Level:: Medical - moderate - high VTE Device Contraindication: N/A - Device Ordered VTE Drug Contraindication: Treatment Not Indicated
[2022-05-29 16:00] VITALS: BP 144/65; PULSE 72; RESP 14; TEMP 36.6; O2SAT 98
[2022-05-29] MEDS: Latanoprost 0.005 % Ophth Sol 2.5 ML DROPS 1 DROP EYE-RIGHT (16:51)
[2022-05-29 16:52] LABS: Glucose, Whole Blood 80 mg/dL (60-115)
[2022-05-29 20:54] LABS: Glucose, Whole Blood 81 mg/dL (60-115)
[2022-05-30 07:28] VITALS: BP 135/67; PULSE 72; RESP 20; TEMP 36.6; O2SAT 100
[2022-05-30] MEDS: Dextrose 10 % 250 ML 750 ML IV ×2 (07:38→17:02)
[2022-05-30] MEDS: 0.9 % Sodium Chloride Flush 3 ML SYRINGE IVFLUSH ×2 (07:38→17:02)
[2022-05-30 08:02] LABS: Glucose, Whole Blood 66 mg/dL (60-115)
[2022-05-30] MEDS: Fluticasone Propionate Nasal 16 GM SPRAY 2 SPRAY NOSTRIL-B (08:09)
[2022-05-30 08:29] LABS: Glucose, Whole Blood 150 mg/dL (60-115)
[2022-05-30 09:45] VITALS: BP 135/67; PULSE 72; O2SAT 100
--- NOTE | 2022-05-30 10:25 | P.PNIM_ITS ---
Subjective Subjective Date of Service: 05/30/22 Interval History: seen and examined this morning follow up for obstructing GE junction mass no overnight events no pain Review of Systems Review of Systems: Yes all other systems are reviewed and are negative Constitutional Constitutional: Denies chills and Denies fever(s) Cardiovascular Cardiovascular: Denies chest pain, Denies palpitations and Denies dyspnea Respiratory Respiratory: Denies cough and Denies dyspnea Gastrointestinal Gastrointestinal: Denies abdominal pain Endocrine Endocrine: Denies palpitations Physical Exam Vital Signs: Vital Signs: Last Vital Signs Temp 97.8 F 05/30/22 07:28 Pulse 72 05/30/22 09:45 Resp 20 05/30/22 07:28 BP 135/67 05/30/22 09:45 Pulse Ox 100 05/30/22 09:45 O2 Del Method Room Air 05/30/22 07:28 O2 Flow Rate 6 05/18/22 11:15 BMI result Body Mass Index 21.9 Appearing in no acute distress lung sounds are clear to auscultation heart regular rate rhythm, clear S1, S2 positive bowel sounds, abdomen is soft, nontender neuro patient is alert x3, no focal deficits Objective Data Active Medications Acetaminophen (Acetaminophen Supp 650 Mg Supp.Rect) 650 mg MI Q6H PRN PRN Reason: Pain, Mild (Pain Scale 1-3) Calcium Carbonate (Calcium Carbonate 500 Mg Tablet) 500 mg PO TID [facility] Last Admin: 05/30/22 07:56 Dose: Not Given Documented By: CARMEN Non-Admin Reason: NPO Carvedilol (Carvedilol 6.25 Mg Tablet) 6.25 mg PO BID [facility]; Protocol Last Admin: 05/30/22 07:57 Dose: Not Given Documented By: CARMEN Non-Admin Reason: NPO Erythromycin (Erythromycin Base 0.5% Oph Oin 1 Gm Tube) 0.25 cm EYE-LEFT MOTH@0900 [facility] Last Admin: 05/29/22 08:27 Dose: 0.25 cm Documented By: CARMEN Escitalopram Oxalate (Escitalopram Oxalate 10 Mg Tablet) 10 mg PO DAILY [facility] Last Admin: 05/30/22 07:57 Dose: Not Given Documented By: CARMEN Non-Admin Reason: NPO Fluticasone Propionate (Fluticasone Propionate Nasal 16 Gm [place]) 2 spray NOSTRIL-B DAILY [facility] Last Admin: 05/30/22 08:09 Dose: 2 spray Documented By: CARMEN Glucose (Glucose Gel 15 Gm Gel..Gram.) 15 gm PO Q15M PRN; Protocol PRN Reason: per Hypoglycemia Standing Ord. Dextrose (D10) 250 mls @ 750 mls/hr IV Q15M PRN; Protocol PRN Reason: per Hypoglycemia Standing Ord. Last Infusion: 05/30/22 08:08 Dose: 0 mls/hr Documented By: CARMEN Insulin Human Lispro (Insulin Lispro 100 Unit/Ml 3 Ml Vial) 0 unit SUBCUT QIDACHS [facility]; Protocol Last Admin: 05/30/22 07:56 Dose: Not Given Documented By: CARMEN Non-Admin Reason: low BGL Lactulose (Lactulose 20 Gm/30 Ml Solution) 20 gm PO BID [facility] Last Admin: 05/30/22 07:57 Dose: Not Given Documented By: CARMEN Non-Admin Reason: NPO Latanoprost (Latanoprost 0.005 % Ophth Kathy 2.5 Ml Drops) 1 drop EYE-RIGHT DA JUAN CARLOS@1700 [facility] Last Admin: 05/29/22 16:51 Dose: 1 drop Documented By: CARMEN Magnesium Oxide (Magnesium Oxide 400 Mg Tablet) 400 mg PO BID [facility] Last Admin: 05/30/22 07:57 Dose: Not Given Documented By: CARMEN Non-Admin Reason: NPO Melatonin (Melatonin 3 Mg Tablet) 6 mg PO DAILY@1800 PRN PRN Reason: Insomnia Last Admin: 05/26/22 18:14 Dose: 6 mg Documented By: KALA Omeprazole (Omeprazole 40 Mg Capsule.Dr) 40 mg PO BID@0630,1630 [facility] Last Admin: 05/30/22 06:25 Dose: Not Given Documented By: NATAHCA Non-Admin Reason: Patient Refused Ondansetron HCl (Ondansetron Hcl 4 Mg/2 Ml Vial) 4 mg IVPUSH Q8H PRN PRN Reason: Nausea and Vomiting Polyethylene Glycol (Polyethylene Glycol 3350 17 Gm Powd.Pack) 17 gm PO DAILY [facility] Last Admin: 05/30/22 07:57 Dose: Not Given Documented By: CARMEN Non-Admin Reason: NPO Senna/Docusate Sodium (Sennosides/Docusate Sodium Tablet) 2 tab PO BID [facility] Last Admin: 05/30/22 07:57 Dose: Not Given Documented By: CARMEN Non-Admin Reason: NPO Sodium Biphosphate/Sodium Phosphate (Sodium Phosphate,Day-Dibasic 133 Ml Enema) 133 ml MI ONCE XI Sodium Chloride (0.9 % Sodium Chloride Flush 3 Ml Syringe) 3 ml IVFLUSH QSHIFT [facility] Last Admin: 05/30/22 07:38 Dose: 3 ml Documented By: CARMEN Labs 05/29/22 06:07 05/29/22 06:07 Labs: Laboratory Results - last 24 hr 05/29/22 05/29/22 05/29/22 11:45 16:44 19:34 POC Glucose 105 80 81 05/30/22 05/30/22 07:33 08:26 POC Glucose 66 150 H Assessment and Plan (1) Esophageal mass: Status: Acute Plan 66yo M long-term resident of [facility] with paroxysmal AF (not on AC due to hx upper GI), CHF, BPH, COPD, DM2, GERD, hypothyroidism, depression, ITP, PAD, L eye blindness, and gout presented with several months of intractable nausea and vomiting with weight loss noted to have mild hypokalemia and anterior lateral ST changes ultimately diagnosed with obstructing esophageal mass Esophageal mass with severe esophageal obstruction barium swallow done at [facility] showed esophageal mass extending towards GE junction causing high-grade stricture and partial obstruction and mild esophageal dysmotility EGD 05/[address] Zuniga showed obstructing GE junction mass; biopsy showed high-grade dysplasia with no underlying dysplasia will need EUS for staging + possible endoscopic resection [likely endoscopic submucoal dissection] + cryo which has to be done at [facility]. [facility] transfer line called (05/29/22 6077) no bed capacity to take patient in transfer. plan for TPN In the meantime picc line ordered MSSA UTI s/p initially treated with ceftriaxone. started doxycycline 05/20 and completed course hypokalemia, hypoMg, hypoCa repleted ? lateral ST changes no chest pain, negative trop no further work up planned constipation MiraLax, lactulose, docusate/senna DM2 ss HTN continue carvedilol hold lisinopril + furosemide paroxysmal AF continue carvedilol no AC due to bleeding in past + ITP unspecified CHF not in acute exacerbation; hold furosemide as above mood disorder escitalopram chronic normocytic anemia Hb stable ITP platelet count stable PAD hold pentoxifylline hx gout colchine prn moderate protein-calorie malnutrition BMI 21.9, no oral intake due to mass VTE ppx: SCDs Attending Dr. Bucio dispo: [facility] continued hospitalization for the following reasons: Plan for picc line and TPN Time Spent With Patient Time: Total time managing care of this patient today ____ minutes. Quality Stroke Does the patient have a stroke diagnosis?: No VTE Prior VTE?: No VTE Risk Level:: Medical - moderate - high VTE Device Contraindication: N/A - Device Ordered VTE Drug Contraindication: Treatment Not Indicated
--- NOTE | 2022-05-30 10:59 | MHC.CLN ---
RE: CONSULT FOR TPN PICC LINED ORDER PLACED TODAY DISCUSSED WITH PHARMACY IF TPN TO START; RECOMMEND D15AA5% AT 35ML/HR TODAY TO PROVIDE 596KCALS, 42G PROTEIN REPLETE LYTES NEEDED FULL NUTRITION ASSESSMENT TO FOLLOW
[2022-05-30 11:13] VITALS: BP 123/60; PULSE 75; RESP 18; TEMP 36.6; O2SAT 100
[2022-05-30 11:27] LABS: Glucose, Whole Blood 90 mg/dL (60-115)
[2022-05-30 12:00] LABS: Albumin Level 3.4 g/dL (3.5-5.0); Anion Gap 18 (12-20); Blood Urea Nitrogen 7 mg/dL (9-16); Calcium 8.3 mg/dL (8.4-10.2); Carbon Dioxide 26 mmol/L (22-29); Chloride 101 mmol/L (96-108); Creatinine Clr Calc Pharmacy 104.7; Estimated Glomerular Filt Rate > 60; Glucose Random 95 mg/dL (60-115); Magnesium 1.6 mg/dL (1.6-2.6); Phosphorus 3.7 mg/dL (2.7-4.5); Potassium 4.1 mmol/L (3.3-5.1); Sodium 141 mmol/L (135-145); Triglycerides 89 mg/dL
--- NOTE | 2022-05-30 14:03 | MHC.CM.PN ---
CM SPOKE WITH DNS AT [facility]. PER DNS, THE CENTER IS NOT ABLE TO ACCEPT THE PATIENT WITH N/J TUBE BUT ABLE TO ACCOMMODATE TPN. PROVIDER MADE AWARE. CM WILL CONTINUE TO FOLLOW.
--- NOTE | 2022-05-30 14:28 | P.CDIM_ITS ---
PROVIDER RESPONSE TEXT: To clarify, the appropriate diagnosis supported by the clinical indicators: Pressure (decubitus) ulcer: 2 QUERY TEXT: PHYSICIAN'S DOCUMENTATION REQUEST Date of Query: 05/30/2022 08:21 AM EDT Patient Name: Darren Deleon Admit Date: 05/17/2022 Dear Yaquelin Martinez, A review of the medical record indicates additional documentation may be needed. Please review below and update the documentation accordingly. Clinical Indicators: per nursing pressure injury assessment 05/28/22: wound coccyx stage 2 Based on the above, could you please provide further information regarding the ulcer/wound: Diabetic ulcer Please specify the location and laterality of the ulcer/wound Venous stasis ulcer Please specify the location and laterality of the ulcer/wound Arterial (ischemic) ulcer Please specify the location and laterality of the ulcer/wound Pressure (decubitus) ulcer Please include the stage of the ulcer and specify the location and laterality of the ulcer/wound Traumatic wound Please specify the location and laterality of the ulcer/wound Non-healing surgical wound Please specify the location and laterality of the ulcer/wound Other (explain) Clinically unable to determine (explain) Thank you, Shiloh Wood RN Use of terms such as suspected, likely, concern for, or probable (associated with a specific diagnosi s that is being evaluated, monitored, or treated as if it exists) are acceptable and can be coded in the inpatient se tting, when documented at the time of discharge. Please use your independent medical judgment in providing your response. THIS QUERY IS PART OF THE PERMANENT MEDICAL RECORD
[2022-05-30 16:49] VITALS: BP 160/68; PULSE 84; RESP 20; TEMP 36.2; O2SAT 95
--- NOTE | 2022-05-30 16:51 | HO.PICC ---
PICC Line Insertion NPICC Diagnosis: N/V Indication: TPN needed Pertinent Labs: reviewed Technique: Following informed consent including risks, benefits and alternatives and using sterile technique including cap and mask, sterile gown, glove and drape, the left arm was prepped and draped in the usual sterile fashion of full barrier technique with G. Following completion of [place] Protocol the skin and soft tissues were anesthetized with 1% Lidocaine plain. Using ultrasound guidance, left brachial vein access was obtained twice by Greta Friend RN, but unable to pass guidewire. Left brachial vein accessed on second attempt by Ibis Hogue RN. Over an 0.018 wire through peel-away sheath, a 5 FR triple lumen PASV PICC line was positioned. Catheter length is 37 CM internal length, at the 0 CM jason--external length, for a total trimmed length of 37 CM. The procedure was performed in S272. Tip verification was performed by Tomy Machado with Sherlock 3CG. Tip located in SVC. Ultrasound was used to document vein patency and for needle entry. A formal ultrasound picture and cardiac rhythm strip was recorded. [employer] Volunteer has released the line for use and it is currently dressed with a StatLock, Tegaderm, and CHG disc. Verification has been performed for blood return and line patency. Arm Circumference: 25 CM Equipment: Intradiem PowerPICC SOLO Catheter Type: 5FR triple lumen PASV PICC Lot #: [id number]
[2022-05-30 16:58] LABS: Glucose, Whole Blood 64 mg/dL (60-115)
[2022-05-30] MEDS: Latanoprost 0.005 % Ophth Sol 2.5 ML DROPS 1 DROP EYE-RIGHT (17:58)
[2022-05-30 18:11] LABS: Glucose, Whole Blood 166 mg/dL (60-115)
--- NOTE | 2022-05-31 03:32 | PC.NURSE ---
Patient refused 1900 and 0400 am vital signs. Patient alert and oriented. OOB in recliner. denies any pain or discomfort at this time.
[2022-05-31 04:00] VITALS: RESP 18
--- NOTE | 2022-05-31 05:35 | PC.NURSE ---
Took over pt care around 0330. Was told in report pt refused 1900 and 0400 vital signs. Pt sleeping at the time I took over care. Pt awake around 0500. A&OX3, pleasant and cooperative. Blind in one eye. Pt rings call nelson appropriately. Slept in chair with chair alarm on. Pt rang to have brief changed. Buttocks slightly red, blanchable. Barrier cream applied. Scattered bruising on arms. TPN infusing as ordered in [facility] picc line without issues. Plan to d/c to [facility] today. Will continue to monitor.
[2022-05-31 07:17] VITALS: BP 137/65; PULSE 83; RESP 20; TEMP 36.4; O2SAT 100
[2022-05-31 07:51] LABS: Glucose, Whole Blood 120 mg/dL (60-115)
[2022-05-31] MEDS: 0.9 % Sodium Chloride Flush 3 ML SYRINGE IVFLUSH ×2 (08:29→14:35)
[2022-05-31] MEDS: Heparin Sodium,Porcine Flush 50 UNITS, 0.9 % Sodium Chloride Flush 5 ML IVFLUSH ×2 (08:30→14:35)
[2022-05-31] MEDS: Escitalopram Oxalate 10 MG TABLET PO (08:50)
[2022-05-31] MEDS: Magnesium Oxide 400 MG TABLET PO (08:51)
[2022-05-31] MEDS: carvediloL 6.25 MG TABLET PO (08:51)
--- NOTE | 2022-05-31 09:05 | MHC.CM.PN ---
Addendum entered by Elizabeth Bone RN 05/31/22 10:43: CM ATTEMPTED TO CONTACT PT'S BROTHER PAULO PARENT FOR DELIVERY OF IMM, DETAILED MESSAGE LEFT AND IMM TO BE DELIVERED VIA CERTIFIED MAIL. Original Note: EMR REVIEWED, ANTIC PT WILL D/C BACK TO [facility] W/TPN, PICC LINE INFO AND TPN ORDERS SENT TO SNF VIA [facility], CM AWAITING RESPONSE.
[2022-05-31 09:27] VITALS: BMI 21.9
[2022-05-31 09:27] LABS: Albumin Level 3.5 g/dL (3.5-5.0); Anion Gap 15 (12-20); Blood Urea Nitrogen 7 mg/dL (9-16); Calcium 8.4 mg/dL (8.4-10.2); Carbon Dioxide 29 mmol/L (22-29); Chloride 102 mmol/L (96-108); Creatinine Clr Calc Pharmacy 101.8; Estimated Glomerular Filt Rate > 60; Glucose Random 133 mg/dL (60-115); Magnesium 1.7 mg/dL (1.6-2.6); Phosphorus 3.8 mg/dL (2.7-4.5); Potassium 3.6 mmol/L (3.3-5.1); Sodium 142 mmol/L (135-145); Triglycerides 105 mg/dL
--- NOTE | 2022-05-31 09:31 | MHC.CLN ---
PICC LINED PLACED REVIEWED LABS PT RECEIVED D10AA4.25 YESTERDAY AT 40ML/HR PROVIDED 490KCALS, 41G PROTEIN RECOMMEND ADVANCING TO TPN D15AA5% TODAY AT 55ML/HR TO PROVIDE 937KCALS, 66G PROTEIN REPLETE LYTES NEEDED; CHECK TRIG LEVEL TODAY PT ALSO RECEIVING CLEAR LIQUID DIET FOLLOWING WITH TEAM
[2022-05-31 11:14] LABS: Glucose, Whole Blood 155 mg/dL (60-115)
[2022-05-31 12:59] LABS: COVID-19 Test Negative (Negative); IDNOW Serial# BCCEAD1C
--- NOTE | 2022-05-31 13:21 | MHC.CM.PN ---
CM RECEIVED MESSAGE FROM LIAISON AT [facility] THAT THEIR PHARMACY HAS A 24HR TURN AROUND ONCE THEY RECEIVE SCRIPT, CM AWAITING PHARMACY INFO FOR HOSPITALIST TO SEND SCRIPT. CM WILL CON TO FOLLOW.
--- NOTE | 2022-05-31 14:33 | HO.PM.IMPN ---
Subjective Subjective Date of Service: 05/31/22 Interval History: patient seen and examined sitting in bedside chair. He reports no acute complain. tried to take his p.o. pills but reports that it was very difficult swallowing them, and he had nausea as a result. otherwise doing well with the now placed picc line and TPN .denies any adb pain, no diarrhea or constipaion, no cp. no sob, no urinary symptoms Review of Systems Review of Systems: Yes all other systems are reviewed and are negative Physical Exam Vital Signs: Vital Signs: Last Vital Signs Temp 97.5 F 05/31/22 07:17 Pulse 83 05/31/22 07:17 Resp 20 05/31/22 07:17 BP 137/65 05/31/22 07:17 Pulse Ox 100 05/31/22 07:17 O2 Del Method Room Air 05/31/22 07:17 O2 Flow Rate 6 05/18/22 11:15 BMI result Body Mass Index 21.9 Const: Other: Sitting in bedside chair, very comfortable, oriented to self and place Resp: Other: lungs are clear, normal respiratory effort GI: Other: abdomen is soft, nontender Extrem: Other: left upper extremity PICC line Objective Data Active Medications Acetaminophen (Acetaminophen Supp 650 Mg Supp.Rect) 650 mg MN Q6H PRN PRN Reason: Pain, Mild (Pain Scale 1-3) Calcium Carbonate (Calcium Carbonate 500 Mg Tablet) 500 mg PO TID [facility] Last Admin: 05/31/22 10:59 Dose: Not Given Documented By: FARHAT Non-Admin Reason: Patient Refused Carvedilol (Carvedilol 6.25 Mg Tablet) 6.25 mg PO BID [facility]; Protocol Last Admin: 05/31/22 08:51 Dose: 6.25 mg Documented By: FARHAT Heparin Sodium (Porcine) 50 (units/ Sodium Chloride 5 ml) 0 units IVFLUSH QSHIFT [facility] Last Admin: 05/31/22 08:30 Dose: 50 unit Documented By: FARHAT Erythromycin (Erythromycin Base 0.5% Oph Oin 1 Gm Tube) 0.25 cm EYE-LEFT MOTH@0900 [facility] Last Admin: 05/29/22 08:27 Dose: 0.25 cm Documented By: CARMEN Escitalopram Oxalate (Escitalopram Oxalate 10 Mg Tablet) 10 mg PO DAILY [facility] Last Admin: 05/31/22 08:50 Dose: 10 mg Documented By: FARHAT Fluticasone Propionate (Fluticasone Propionate Nasal 16 Gm [place]) 2 spray NOSTRIL-B DAILY [facility] Last Admin: 05/31/22 11:00 Dose: Not Given Documented By: FARHAT Non-Admin Reason: Patient Refused Glucose (Glucose Gel 15 Gm Gel..Gram.) 15 gm PO Q15M PRN; Protocol PRN Reason: per Hypoglycemia Standing Ord. Dextrose (D10) 250 mls @ 750 mls/hr IV Q15M PRN; Protocol PRN Reason: per Hypoglycemia Standing Ord. Last Infusion: 05/30/22 17:25 Dose: 0 mls/hr Documented By: CARMEN Amino Acids/Electrolytes/Dextrose (Clinimix E 4.25%-10%) 960 mls @ 40 mls/hr IV DAILY@1800 [facility] Stop: 05/31/22 17:59 Last Admin: 05/30/22 18:12 Dose: 40 mls/hr Documented By: CARMEN Multivitamins 10 ml/ Trace Metals 1 ml/ Amino Acids/Electrolytes 1,320 mls @ 55 mls/hr IV DAILY@1800 [facility] Stop: 06/01/22 17:59 Insulin Human Lispro (Insulin Lispro 100 Unit/Ml 3 Ml Vial) 0 unit SUBCUT QIDACHS [facility]; Protocol Last Admin: 05/31/22 11:44 Dose: Not Given Documented By: FARHAT Non-Admin Reason: Patient Refused Lactulose (Lactulose 20 Gm/30 Ml Solution) 20 gm PO BID [facility] Last Admin: 05/31/22 10:59 Dose: Not Given Documented By: FARHAT Non-Admin Reason: Patient Refused Latanoprost (Latanoprost 0.005 % Ophth Kathy 2.5 Ml Drops) 1 drop EYE-RIGHT DAILY@1700 [facility] Last Admin: 05/30/22 17:58 Dose: 1 drop Documented By: CARMEN Magnesium Oxide (Magnesium Oxide 400 Mg Tablet) 400 mg PO BID [facility] Last Admin: 05/31/22 08:51 Dose: 400 mg Documented By: FARHAT Melatonin (Melatonin 3 Mg Tablet) 6 mg PO DAILY@1800 PRN PRN Reason: Insomnia Last Admin: 05/26/22 18:14 Dose: 6 mg Documented By: KALA Omeprazole (Omeprazole 40 Mg Capsule.) 40 mg PO BID@0630,1630 [facility] Last Admin: 05/31/22 06:42 Dose: Not Given Documented By: DEANA Non-Admin Reason: NPO Ondansetron HCl (Ondansetron Hcl 4 Mg/2 Ml Vial) 4 mg IVPUSH Q8H PRN PRN Reason: Nausea and Vomiting Polyethylene Glycol (Polyethylene Glycol 3350 17 Gm Powd.Pack) 17 gm PO DAILY [facility] Last Admin: 05/31/22 11:00 Dose: Not Given Documented By: FARHAT Non-Admin Reason: Patient Refused Senna/Docusate Sodium (Sennosides/Docusate Sodium Tablet) 2 tab PO BID [facility] Last Admin: 05/31/22 11:00 Dose: Not Given Documented By: FARHAT Non-Admin Reason: Patient Refused Sodium Biphosphate/Sodium Phosphate (Sodium Phosphate,Ford-Dibasic 133 Ml Enema) 133 ml [place] ONCE [facility] Sodium Chloride (0.9 % Sodium Chloride Flush 3 Ml Syringe) 3 ml IVFLUSH QSHIFT [facility] Last Admin: 05/31/22 08:29 Dose: 3 ml Documented By: FARHAT Labs 05/29/22 06:07 05/31/22 07:51 Labs: Laboratory Results - last 24 hr 05/30/22 05/30/22 05/31/22 16:51 18:08 07:44 Anion Gap Estim Creat Clear Calc Estimated GFR POC Glucose 64 166 H 120 H Random Glucose Calcium Phosphorus Magnesium Albumin Triglycerides COVID-19 ([facility]) COVID-19 Clin Com 05/31/22 05/31/22 05/31/22 07:51 10:56 12:31 Anion Gap 15 Estim Creat Clear Calc 101.8 Estimated GFR > 60 POC Glucose 155 H Random Glucose 133 H Calcium 8.4 Phosphorus 3.8 Magnesium 1.7 Albumin 3.5 Triglycerides 105 COVID-19 ([facility]) Negative COVID-19 Clin Com See Note Assessment and Plan (1) Esophageal mass: Status: Acute (2) Esophageal stricture: Status: Acute (3) Vomiting: Status: Acute Plan 66yo M long-term resident of [facility] with paroxysmal AF (not on AC due to hx upper GI), CHF, BPH, COPD, DM2, GERD, hypothyroidism, depression, ITP, PAD, L eye blindness, and gout presented with several months of intractable nausea and vomiting with weight loss noted to have mild hypokalemia and anterior lateral ST changes ultimately diagnosed with obstructing esophageal mass #Esophageal mass with severe esophageal obstruction - s/p EGD on 05/18 showing obstructing GE junction mass, biopsy showed high-grade dysplasia - op appt with [facility] for Cryo and possible EUS for staging + possible endoscopic resection [likely endoscopic submucoal dissection] + cryo which has to be done at [facility]. [facility] transfer line called (05/29/22 1405) no bed capacity to take patient in transfer. has op tuan. - PICC line placed on pt now on TPN given inability to take po due to mass - Will be discharged back to SNF with TPN #MSSA UTI - completed Abx #hypokalemia, hypoMg, hypoCa - repleted and resolved ?#lateral ST changes - no chest pain, negative trop, no further work up planned #constipation - continue prn MiraLax, lactulose, docusate/senna # DM2 - cotinue LDSSI # HTN - continue carvedilol - hold lisinopril + furosemide #paroxysmal AF - continue carvedilol for RC - no AC due to bleeding in past + ITP # unspecified CHF - not in acute exacerbation; hold furosemide as above #mood disorder - continue escitalopram if able to tolerate pills # chronic normocytic anemia Hb stable # ITP platelet count stable # PAD hold pentoxifylline #hx gout colchine prn # moderate protein-calorie malnutrition BMI 21.9, no oral intake due to mass VTE ppx: SCDs dispo: [facility] once TPN is arranged at SNF. Plan for discharge 06/01 Time Spent With Patient Time: Total time managing care of this patient today ____ minutes. Quality Stroke Does the patient have a stroke diagnosis?: No VTE Prior VTE?: No VTE Risk Level:: Medical - moderate - high VTE Device Contraindication: N/A - Device Ordered VTE Drug Contraindication: Treatment Not Indicated
[2022-05-31 16:07] LABS: Glucose, Whole Blood 139 mg/dL (60-115)
[2022-05-31] MEDS: Latanoprost 0.005 % Ophth Sol 2.5 ML DROPS 1 DROP EYE-RIGHT (16:34)
[2022-05-31] MEDS: Melatonin 3 MG TABLET 6 MG PO (23:18)
--- NOTE | 2022-05-31 23:23 | PC.NURSE ---
Patient refused all 21:00 vitals, medications and poc. Alert and oriented x4.
[2022-06-01] MEDS: Heparin Sodium,Porcine Flush 50 UNITS, 0.9 % Sodium Chloride Flush 5 ML IVFLUSH ×4 (00:54→23:41)
[2022-06-01 05:52] VITALS: BP 122/58; PULSE 59; RESP 16; TEMP 36.2; O2SAT 100
[2022-06-01 07:12] VITALS: BP 119/57; PULSE 57; RESP 20; TEMP 36.3; O2SAT 100
[2022-06-01 08:09] LABS: Glucose, Whole Blood 178 mg/dL (60-115)
[2022-06-01] MEDS: Erythromycin Base 0.5% Oph Oin 1 GM TUBE 0.25 CM EYE-LEFT (08:39)
--- NOTE | 2022-06-01 09:28 | MHC.CLN ---
Addendum entered by Gracie Covington, MITA 06/01/22 09:40: DISCUSSED DISCHARGE PLAN WITH CM DISCUSSED GOAL RATE TPN WITH [facility] PT'S SNF WITH NEED TPN SCRIPT AT GOAL RATE WITH LIPIDS (SEE BELOW) FOR DISCHARGE Original Note: REVIEWED LABS PT RECEIVED TPN YESTERDAY D15AA5% TODAY AT 55ML/HR TO PROVIDE 937KCALS, 66G PROTEIN RECOMMEND INCREASING D15AA5% TO 75ML/HR WITH 38ML OF 20% LIPIDS TO PROVIDE 2190KCALS (30KCALS/KG) TOTAL FROM FORMULA AND LIPIDS AND 90G PROTEIN (1.2G/KG) REPLETE LYTES NEEDED PT ALSO RECEIVING CLEAR LIQUID DIET POSSIBLE DISCHARGE TODAY
[2022-06-01] MEDS: 0.9 % Sodium Chloride Flush 3 ML SYRINGE IVFLUSH (10:13)
[2022-06-01 11:44] LABS: Anion Gap 12 (12-20); Blood Urea Nitrogen 13 mg/dL (9-16); Calcium 8.3 mg/dL (8.4-10.2); Carbon Dioxide 29 mmol/L (22-29); Chloride 104 mmol/L (96-108); Creatinine Clr Calc Pharmacy 106.2; Estimated Glomerular Filt Rate > 60; Glucose Random 162 mg/dL (60-115); Magnesium 1.8 mg/dL (1.6-2.6); Phosphorus 4.2 mg/dL (2.7-4.5); Sodium 141 mmol/L (135-145)
[2022-06-01 11:45] VITALS: RESP 19
--- NOTE | 2022-06-01 14:11 | P.PNIM_ITS ---
Subjective Subjective Date of Service: 06/01/22 Interval History: seen and examined this morning follow up for obstructing GE juntion mass receiving TPN frustrated with not being able to eat Review of Systems Review of Systems: Yes all other systems are reviewed and are negative Constitutional Constitutional: Denies chills and Denies fever(s) Cardiovascular Cardiovascular: Denies chest pain, Denies palpitations and Denies dyspnea Respiratory Respiratory: Denies cough and Denies dyspnea Gastrointestinal Gastrointestinal: Denies abdominal pain Endocrine Endocrine: Denies palpitations Physical Exam Vital Signs: Vital Signs: Last Vital Signs Temp 97.3 F 06/01/22 07:12 Pulse 57 06/01/22 07:12 Resp 19 06/01/22 11:45 BP 119/57 L 06/01/22 07:12 Pulse Ox 100 06/01/22 07:12 O2 Del Method Room Air 06/01/22 07:12 O2 Flow Rate 6 05/18/22 11:15 BMI result Body Mass Index 21.9 Const: General: comfortable, alert and awake Nutritional Appearance: average body habitus Eyes: Other: left eye blind Resp: Effort & Inspection: normal respiratory effort and able to speak in complete sentences GI: Inspection: No distended Palpation (GI): Soft to palpation and nonten alexandra Objective Data Active Medications Acetaminophen (Acetaminophen Supp 650 Mg Supp.Rect) 650 mg [place] Q6H PRN PRN Reason: Pain, Mild (Pain Scale 1-3) Calcium Carbonate (Calcium Carbonate 500 Mg Tablet) 500 mg PO TID [facility] Last Admin: 06/01/22 14:08 Dose: Not Given Documented By: TAMEKA Non-Admin Reason: Patient Refused Carvedilol (Carvedilol 6.25 Mg Tablet) 6.25 mg PO BID [facility]; Protocol Last Admin: 06/01/22 10:13 Dose: Not Given Documented By: TAMEKA Non-Admin Reason: Patient Refused Heparin Sodium (Porcine) 50 (units/ Sodium Chloride 5 ml) 0 units IVFLUSH QSHIFT [facility] Last Admin: 06/01/22 08:39 Dose: 50 unit Documented By: TAMEKA Erythromycin (Erythromycin Base 0.5% Oph Oin 1 Gm Tube) 0.25 cm EYE-LEFT MOTH@0900 [facility] Last Admin: 06/01/22 08:39 Dose: 0.25 cm Documented By: TAMEKA Escitalopram Oxalate (Escitalopram Oxalate 10 Mg Tablet) 10 mg PO DAILY [facility] Last Admin: 06/01/22 10:13 Dose: Not Given Documented By: TAMEKA Non-Admin Reason: Patient Refused Fluticasone Propionate (Fluticasone Propionate Nasal 16 Gm [place]) 2 spray NOSTRIL-B DAILY [facility] Last Admin: 06/01/22 10:13 Dose: Not Given Documented By: TAMEKA Non-Admin Reason: Patient Refused Glucose (Glucose Gel 15 Gm Gel..Gram.) 15 gm PO Q15M PRN; Protocol PRN Reason: per Hypoglycemia Standing Ord. Dextrose (D10) 250 mls @ 750 mls/hr IV Q15M PRN; Protocol PRN Reason: per Hypoglycemia Standing Ord. Last Infusion: 05/30/22 17:25 Dose: 0 mls/hr Documented By: CARMEN Multivitamins 10 ml/ Trace Metals 1 ml/ Amino Acids/Electrolytes 1,320 mls @ 55 mls/hr IV DAILY@1800 [facility] Stop: 06/01/22 17:59 Last Admin: 05/31/22 18:03 Dose: 55 mls/hr Documented By: FARHAT Amino Acids/Electrolytes (Clinimix E 5%-15%) 1,800 mls @ 75 mls/hr IV DAILY@1800 [facility] Stop: 06/02/22 17:59 Fat Emulsion Intravenous (Intralipid) 228 mls @ 38 mls/hr IV DAILY@0000,1800 [facility] Stop: 06/02/22 05:59 Insulin Human Lispro (Insulin Lispro 100 Unit/Ml 3 Ml Vial) 0 unit SUBCUT QIDACHS [facility]; Protocol Last Admin: 06/01/22 12:49 Dose: Not Given Documented By: TAMEKA Non-Admin Reason: Patient Refused Lactulose (Lactulose 20 Gm/30 Ml Solution) 20 gm PO BID [facility] Last Admin: 06/01/22 10:13 Dose: Not Given Documented By: TAMEKA Non-Admin Reason: Patient Refused Latanoprost (Latanoprost 0.005 % Ophth Kathy 2.5 Ml Drops) 1 drop EYE-RIGHT DAILY@1700 [facility] Last Admin: 05/31/22 16:34 Dose: 1 drop Documented By: FARHAT Magnesium Oxide (Magnesium Oxide 400 Mg Tablet) 400 mg PO BID [facility] Last Admin: 06/01/22 10:13 Dose: Not Given Documented By: TAMEKA Non-Admin Reason: Patient Refused Melatonin (Melatonin 3 Mg Tablet) 6 mg PO DAILY@1800 PRN PRN Reason: Insomnia Last Admin: 05/31/22 23:18 Dose: 6 mg Documented By: EZIO Omeprazole (Omeprazole 40 Mg Capsule.Dr) 40 mg PO BID@0630,1630 [facility] Last Admin: 06/01/22 06:46 Dose: Not Given Documented By: EZIO Non-Admin Reason: Patient Refused Ondansetron HCl (Ondansetron Hcl 4 Mg/2 Ml Vial) 4 mg IVPUSH Q8H PRN PRN Reason: Nausea and Vomiting Polyethylene Glycol (Polyethylene Glycol 3350 17 Gm Powd.Pack) 17 gm PO DAILY [facility] Last Admin: 06/01/22 10:13 Dose: Not Given Documented By: TAMEKA Non-Admin Reason: Patient Refused Senna/Docusate Sodium (Sennosides/Docusate Sodium Tablet) 2 tab PO BID [facility] Last Admin: 06/01/22 10:14 Dose: Not Given Documented By: TAMEKA Non-Admin Reason: Patient Refused Sodium Biphosphate/Sodium Phosphate (Sodium Phosphate,[place]-Dibasic 133 Ml Enema) 133 ml [place] ONCE [facility] Sodium Chloride (0.9 % Sodium Chloride Flush 3 Ml Syringe) 3 ml IVFLUSH QSHIFT [facility] Last Admin: 06/01/22 10:13 Dose: 3 ml Documented By: TAMEKA Labs 05/29/22 06:07 06/01/22 11:20 Labs: Laboratory Results - last 24 hr 05/31/22 06/01/22 06/01/22 16:02 07:13 11:20 Anion Gap 12 Estim Creat Clear Calc 106.2 Estimated GFR > 60 POC Glucose 139 H 178 H Random Glucose 162 H Calcium 8.3 L Phosphorus 4.2 Magnesium 1.8 Assessment and Plan (1) Esophageal mass: Status: Acute Plan 66yo M long-term resident of [facility] with paroxysmal AF (not on AC due to hx upper GI), CHF, BPH, COPD, DM2, GERD, hypothyroidism, depression, ITP, PAD, L eye blindness, and gout presented with several months of intractable nausea and vomiting with weight loss noted to have mild hypokalemia and anterior lateral ST changes ultimately diagnosed with obstructing esophageal mass #Esophageal mass with severe esophageal obstruction - s/p EGD on 05/18 showing obstructing GE junction mass, biopsy showed high-grade dysplasia - op appt with [facility] for Cryo and possible EUS for staging + possible endoscopic resection [likely endoscopic submucoal dissection] + cryo which has to be done at [facility]. [facility] transfer line called (05/29/22 1405) no bed capacity to take patient in transfer. has op tuan. - PICC line placed 05/30, started on TPN given inability to take po due to mass - Will be discharged back to SNF with TPN #MSSA UTI - completed Abx #hypokalemia, hypoMg, hypoCa - repleted and resolved ?#lateral ST changes - no chest pain, negative trop, no further work up planned #constipation - continue prn MiraLax, lactulose, docusate/senna # DM2 - continue SSI # HTN - continue carvedilol - hold lisinopril + furosemide has been declining meds. bp stable #paroxysmal AF - continue carvedilol for RC - no AC due to bleeding in past + ITP # unspecified CHF - not in acute exacerbation; hold furosemide as above #mood disorder - continue escitalopram if able to tolerate pills # chronic normocytic anemia Hb stable # ITP platelet count stable # PAD hold pentoxifylline #hx gout colchine prn # moderate protein-calorie malnutrition BMI 21.9, no oral intake due to mass VTE ppx: SCDs dispo: [facility] at [facility]. Plan for discharge 06/02 attending - dr. page Time Spent With Patient Time: Total time managing care of this patient today ____ minutes. Quality Stroke Does the patient have a stroke diagnosis?: No VTE Prior VTE?: No VTE Risk Level:: Medical - moderate - high VTE Device Contraindication: N/A - Device Ordered VTE Drug Contraindication: Treatment Not Indicated
--- NOTE | 2022-06-01 14:50 | MHC.CM.PN ---
EMR REVIEWED, CM ATTEMPTED TO CONTACT [facility] [phone] MULTIPLE TIMES THIS AM W/NO ANSWER TO DISCUSS DISPO AND CLARIFY TPN ORDERS AND ABILITY FOR TPN TO RUN 24HR VS CHANGING TO 12HS DAILY, MESSAGES LEFT W/CM CONTACT INFO. CM CONTACTED PT[facility]ARM[facility] [phone] FAX: [phone] WHO FAXED CM THEIR TPN ORDER FORM, FORM FILLED OUT BY HOSPITALIST HOWEVER CM RECEIVED MESSAGE FROM [facility] THAT [facility] WAS REQUESTING DAILY LABS AND REQUESTING US TO HOLD PT UNTIL Sunday06/06/22 FOR IV/TPN TRAINING FOR STAFF. HOSPITALIST AWARE. PER DR. MACKAY'S OFFICE STAFF REFERRAL HAS BEEN FAXED TO [facility] [phone] AND THEY WILL BE FOLLOWING UP W/[facility] [phone] WHEN THEY CAN TAKE PT. HOSPITALIST AWARE.
[2022-06-01 15:22] VITALS: BP 132/59; PULSE 65; RESP 18; TEMP 37; O2SAT 98
[2022-06-01 16:09] LABS: Glucose, Whole Blood 202 mg/dL (60-115)
[2022-06-01] MEDS: Latanoprost 0.005 % Ophth Sol 2.5 ML DROPS 1 DROP EYE-RIGHT (18:29)
[2022-06-01] MEDS: Fat Emulsions 20% 250 ML 38 ML IV ×2 (18:57→23:41)
[2022-06-01 23:30] VITALS: BP 139/71; PULSE 86; RESP 18; TEMP 36.4; O2SAT 100
[2022-06-02 03:31] VITALS: BP 132/68; PULSE 75; RESP 18; TEMP 36.7; O2SAT 100
[2022-06-02 07:42] VITALS: BP 125/61; PULSE 76; RESP 18; TEMP 36.6; O2SAT 100
[2022-06-02 07:44] LABS: Glucose, Whole Blood 227 mg/dL (60-115)
[2022-06-02 08:07] LABS: Anion Gap 13 (12-20); Blood Urea Nitrogen 14 mg/dL (9-16); Calcium 8.4 mg/dL (8.4-10.2); Carbon Dioxide 30 mmol/L (22-29); Chloride 104 mmol/L (96-108); Creatinine Clr Calc Pharmacy 91.4; Estimated Glomerular Filt Rate > 60; Glucose Random 184 mg/dL (60-115); Magnesium 1.8 mg/dL (1.6-2.6); Phosphorus 3.6 mg/dL (2.7-4.5); Potassium 3.7 mmol/L (3.3-5.1); Sodium 143 mmol/L (135-145)
[2022-06-02] MEDS: Insulin Lispro 100 UNIT/ML 3 ML VIAL SUBCUT (08:10)
--- NOTE | 2022-06-02 10:34 | MHC.CLN ---
F/U REVIEWED LABS DISCUSSED WITH PHARMACY PA AWARE RECOMMEND CONTINUING D15AA5% TO 75ML/HR WITH 38ML OF 20% LIPIDS PROVIDES 2190KCALS (30KCALS/KG) TOTAL FROM FORMULA AND LIPIDS AND 90G PROTEIN (1.2G/KG) TPN AT GOAL RATE REPLETE LYTES NEEDED PT ALSO RECEIVING FULL LIQUID DIET POSSIBLE DISCHARGE SUNDAY PER CM FOLLOWING WITH TEAM
--- NOTE | 2022-06-02 11:06 | MHC.CM.PN ---
[facility] UPDATED WITH TODAY'S LABS AND YESTERDAY'S PROGRESS NOTE PLAN REMAINS BACK TO [facility] SUNDAY WITH DAILY LABS BEING SENT TO [facility]
[2022-06-02] MEDS: Heparin Sodium,Porcine Flush 50 UNITS, 0.9 % Sodium Chloride Flush 5 ML IVFLUSH ×3 (11:08→23:59)
[2022-06-02 11:26] LABS: Glucose, Whole Blood 163 mg/dL (60-115)
[2022-06-02 12:00] VITALS: BP 121/56; PULSE 68; RESP 18; TEMP 36.3; O2SAT 100
--- NOTE | 2022-06-02 13:59 | PC.NURSE ---
Pt refused all morning medication except insulin, Demarco aware, TPN infusing as ordered through PICC without complications. Pt refused noontime insulin, ROLANDO aware.
--- NOTE | 2022-06-02 15:02 | P.PNIM_ITS ---
Subjective Subjective Date of Service: 06/02/22 Interval History: seen and examined this morning follow up for obstruction GE junction mass no overnight events continues to refuse most po medications Review of Systems Review of Systems: Yes all other systems are reviewed and are negative Constitutional Constitutional: Denies chills and Denies fever(s) Cardiovascular Cardiovascular: Denies chest pain and Denies dyspnea Respiratory Respiratory: Denies dyspnea Gastrointestinal Gastrointestinal: Denies abdominal pain Physical Exam Vital Signs: Vital Signs: Last Vital Signs Temp 97.4 F 06/02/22 12:00 Pulse 68 06/02/22 12:00 Resp 18 06/02/22 12:00 BP 121/56 L 06/02/22 12:00 Pulse Ox 100 06/02/22 12:00 O2 Del Method Room Air 06/02/22 12:00 O2 Flow Rate 6 05/18/22 11:15 BMI result Body Mass Index 21.9 Const: General: cooperative, comfortable, no acute distress, alert and awake Nutritional Appearance: average body habitus Eyes: Other: left eye blind Resp: Effort & Inspection: normal respiratory effort and able to speak in complete sentences Auscultation: clear to auscultation bilaterally Cardio: Rate: regular rate GI: Inspection: No distended Palpation (GI): Soft to palpation and nontender Neuro: General: CN's II-XI intact bilaterally Extrem: General: Yes no pedal edema Objective Data Active Medications Acetaminophen (Acetaminophen Supp 650 Mg Supp.Rect) 650 mg [place] Q6H PRN PRN Reason: Pain, Mild (Pain Scale 1-3) Calcium Carbonate (Calcium Carbonate 500 Mg Tablet) 500 mg PO TID [facility] Last Admin: 06/02/22 14:07 Dose: Not Given Documented By: LEEANN Non-Admin Reason: Patient Refused Carvedilol (Carvedilol 6.25 Mg Tablet) 6.25 mg PO BID [facility]; Protocol Last Admin: 06/02/22 07:23 Dose: Not Given Documented By: LEEANN Non-Admin Reason: Patient Refused Heparin Sodium (Porcine) 50 (units/ Sodium Chloride 5 ml) 0 units IVFLUSH QSHIFT [facility] Last Admin: 06/02/22 11:08 Dose: 50 unit Documented By: LEEANN Comments: pt refused in AM Erythromycin (Erythromycin Base 0.5% Oph Oin 1 Gm Tube) 0.25 cm EYE-LEFT MOTH@0900 [facility] Last Admin: 06/01/22 08:39 Dose: 0.25 cm Documented By: TAMEKA Escitalopram Oxalate (Escitalopram Oxalate 10 Mg Tablet) 10 mg PO DAILY [facility] Last Admin: 06/02/22 07:23 Dose: Not Given Documented By: LEEANN Non-Admin Reason: Patient Refused Fluticasone Propionate (Fluticasone Propionate Nasal 16 Gm [place]) 2 spray NOSTRIL-B DAILY [facility] Last Admin: 06/02/22 07:23 Dose: Not Given Documented By: LEEANN Non-Admin Reason: Patient Refused Glucose (Glucose Gel 15 Gm Gel..Gram.) 15 gm PO Q15M PRN; Protocol PRN Reason: per Hypoglycemia Standing Ord. Dextrose (D10) 250 mls @ 750 mls/hr IV Q15M PRN; Protocol PRN Reason: per Hypoglycemia Standing Ord. Last Infusion: 05/30/22 17:25 Dose: 0 mls/hr Documented By: CARMEN Amino Acids/Electrolytes (Clinimix E 5%-15%) 1,800 mls @ 75 mls/hr IV DAILY@1800 [facility] Stop: 06/02/22 17:59 Last Admin: 06/01/22 18:58 Dose: 75 mls/hr Documented By: SAUL Multivitamins 10 ml/ Trace Metals 1 ml/ Amino Acids/Electrolytes 1,800 mls @ 75 mls/hr IV DAILY@1800 [facility] Stop: 06/03/22 17:59 Fat Emulsion Intravenous (Intralipid) 228 mls @ 38 mls/hr IV DAILY@0000,1800 [facility] Stop: 06/03/22 05:59 Insulin Human Lispro (Insulin Lispro 100 Unit/Ml 3 Ml Vial) 0 unit SUBCUT QIDACHS [facility]; Protocol Last Admin: 06/02/22 11:46 Dose: Not Given Documented By: LEEANN Non-Admin Reason: Patient Refused Lactulose (Lactulose 20 Gm/30 Ml Solution) 20 gm PO BID [facility] Last Admin: 06/02/22 07:24 Dose: Not Given Documented By: LEEANN Non-Admin Reason: Patient Refused Latanoprost (Latanoprost 0.005 % Ophth Kathy 2.5 Ml Drops) 1 drop EYE-RIGHT DAILY@1700 [facility] Last Admin: 06/01/22 18:29 Dose: 1 drop Documented By: SAUL Magnesium Oxide (Magnesium Oxide 400 Mg Tablet) 400 mg PO BID [facility] Last Admin: 06/02/22 07:24 Dose: Not Given Documented By: LEEANN Non-Admin Reason: Patient Refused Melatonin (Melatonin 3 Mg Tablet) 6 mg PO DAILY@1800 PRN PRN Reason: Insomnia Last Admin: 05/31/22 23:18 Dose: 6 mg Documented By: EZIO Omeprazole (Omeprazole 40 Mg Capsule.Dr) 40 mg PO BID@0630,1630 [facility] Last Admin: 06/02/22 05:44 Dose: Not Given Documented By: OCHOA Non-Admin Reason: Patient Refused Ondansetron HCl (Ondansetron Hcl 4 Mg/2 Ml Vial) 4 mg IVPUSH Q8H PRN PRN Reason: Nausea and Vomiting Polyethylene Glycol (Polyethylene Glycol 3350 17 Gm Powd.Pack) 17 gm PO DAILY [facility] Last Admin: 06/02/22 07:24 Dose: Not Given Documented By: LEEANN Non-Admin Reason: Patient Refused Senna/Docusate Sodium (Sennosides/Docusate Sodium Tablet) 2 tab PO BID [facility] Last Admin: 06/02/22 07:24 Dose: Not Given Documented By: LEEANN Non-Admin Reason: Patient Refused Sodium Biphosphate/Sodium Phosphate (Sodium Phosphate,[place]-Dibasic 133 Ml Enema) 133 ml [place] ONCE [facility] Sodium Chloride (0.9 % Sodium Chloride Flush 3 Ml Syringe) 3 ml IVFLUSH QSHIFT [facility] Last Admin: 06/02/22 07:25 Dose: Not Given Documented By: LEEANN Non-Admin Reason: IV Running Labs 05/29/22 06:07 06/02/22 05:29 Labs: Laboratory Results - last 24 hr 06/01/22 06/02/22 06/02/22 15:04 05:29 07:40 Anion Gap 13 Estim Creat Clear Calc 91.4 Estimated GFR > 60 POC Glucose 202 H 227 H Random Glucose 184 H Calcium 8.4 Phosphorus 3.6 Magnesium 1.8 06/02/22 11:21 Anion Gap Estim Creat Clear Calc Estimated GFR POC Glucose 163 H Random Glucose Calcium Phosphorus Magnesium Assessment and Plan (1) Esophageal mass: Status: Acute Plan 66yo M long-term resident of [facility] with paroxysmal AF (not on AC due to hx upper GI), CHF, BPH, COPD, DM2, GERD, hypothyroidism, depression, ITP, PAD, L eye blindness, and gout presented with several months of intractable nausea and vomiting with weight loss noted to have mild hypokalemia and anterior lateral ST changes ultimately diagnosed with obstructing esophageal mass #Esophageal mass with severe esophageal obstruction - s/p EGD on 05/18 showing obstructing GE junction mass, biopsy showed high-grade dysplasia - op appt with [facility] for Cryo and possible EUS for staging + possible endoscopic resection [likely endoscopic submucoal dissection] + cryo which has to be done at [facility]. [facility] transfer line called (05/29/22 1405) no bed capacity to take patient in transfer. has op tuan. - PICC line placed 05/30, started on TPN given inability to take po due to mass - Will be discharged back to SNF with TPN on Sunday #MSSA UTI - completed Abx #hypokalemia, hypoMg, hypoCa - repleted and resolved ?#lateral ST changes - no chest pain, negative trop, no further work up planned #constipation - continue prn MiraLax, lactulose, docusate/senna # DM2 - continue SSI # HTN - continue carvedilol - hold lisinopril + furosemide has been declining meds. bp stable #paroxysmal AF - continue carvedilol for RC - no AC due to bleeding in past + ITP # unspecified CHF - not in acute exacerbation; hold furosemide as above #mood disorder - continue escitalopram if able to tolerate pills # chronic normocytic anemia Hb stable # ITP platelet count stable # PAD hold pentoxifylline # moderate protein-calorie malnutrition BMI 21.9, no oral intake due to mass VTE ppx: SCDs dispo: [facility] at [facility]. [facility] requires until Sunday to train staff for his return attending - dr. page requires ongoing inpatient stay for TPN Time Spent With Patient Time: Total time managing care of this patient today ____ minutes. Quality Stroke Does the patient have a stroke diagnosis?: No VTE Prior VTE?: No VTE Risk Level:: Medical - moderate - high VTE Device Contraindication: N/A - Device Ordered VTE Drug Contraindication: Treatment Not Indicated
[2022-06-02 15:37] VITALS: BP 136/64; PULSE 72; RESP 16; TEMP 36.4; O2SAT 99
--- NOTE | 2022-06-02 15:46 | MHC.CM.PN ---
DAYNA. PAULO [phone] AWARE THAT PATIENT WILL NOT BE RETURNING TO [facility] UNTIL [facility]
[2022-06-02] MEDS: Colchicine 0.6 MG TABLET 0.3 MG PO (15:51)
[2022-06-02] MEDS: 0.9 % Sodium Chloride Flush 3 ML SYRINGE IVFLUSH (15:52)
[2022-06-02 16:35] LABS: Glucose, Whole Blood 199 mg/dL (60-115)
[2022-06-02] MEDS: Fat Emulsions 20% 250 ML 38 ML IV (17:50)
[2022-06-02] MEDS: Latanoprost 0.005 % Ophth Sol 2.5 ML DROPS 1 DROP EYE-RIGHT (17:54)
[2022-06-02] MEDS: Melatonin 3 MG TABLET 6 MG PO (19:47)
[2022-06-02 20:12] LABS: Glucose, Whole Blood 213 mg/dL (60-115)
[2022-06-03] MEDS: Fat Emulsions 20% 250 ML 38 ML IV ×2 (00:05→18:02)
[2022-06-03 07:15] VITALS: BP 109/53; PULSE 74; RESP 18; TEMP 36.3; O2SAT 99
[2022-06-03 07:20] LABS: Anion Gap 13 (12-20); Blood Urea Nitrogen 16 mg/dL (9-16); Calcium 8.5 mg/dL (8.4-10.2); Carbon Dioxide 27 mmol/L (22-29); Chloride 104 mmol/L (96-108); Creatinine Clr Calc Pharmacy 111.2; Estimated Glomerular Filt Rate > 60; Glucose Random 225 mg/dL (60-115); Magnesium 1.8 mg/dL (1.6-2.6); Phosphorus 3.9 mg/dL (2.7-4.5); Potassium 4.4 mmol/L (3.3-5.1); Sodium 140 mmol/L (135-145)
[2022-06-03 07:31] LABS: Glucose, Whole Blood 249 mg/dL (60-115)
[2022-06-03] MEDS: Sennosides/Docusate Sodium TABLET 2 TAB PO (08:07)
[2022-06-03] MEDS: Magnesium Oxide 400 MG TABLET PO (08:07)
[2022-06-03] MEDS: carvediloL 6.25 MG TABLET PO (08:07)
[2022-06-03] MEDS: Insulin Lispro 100 UNIT/ML 3 ML VIAL SUBCUT ×2 (08:08→12:12)
[2022-06-03] MEDS: Heparin Sodium,Porcine Flush 50 UNITS, 0.9 % Sodium Chloride Flush 5 ML IVFLUSH ×2 (08:08→15:18)
[2022-06-03] MEDS: Fluticasone Propionate Nasal 16 GM SPRAY 2 SPRAY NOSTRIL-B (08:09)
[2022-06-03] MEDS: 0.9 % Sodium Chloride Flush 3 ML SYRINGE IVFLUSH (08:09)
[2022-06-03 11:27] LABS: Glucose, Whole Blood 255 mg/dL (60-115)
[2022-06-03 11:42] VITALS: BP 117/56; PULSE 64; RESP 18; TEMP 36.2; O2SAT 98
--- NOTE | 2022-06-03 11:56 | P.PNIM_ITS ---
Subjective Subjective Date of Service: 06/03/22 Interval History: seen and examined this morning follow up for obstruction GE junction mass no overnight events Review of Systems Review of Systems: Yes all other systems are reviewed and are negative Constitutional Constitutional: Denies chills and Denies fever(s) Cardiovascular Cardiovascular: Denies chest pain and Denies dyspnea Respiratory Respiratory: Denies dyspnea Gastrointestinal Gastrointestinal: Denies abdominal pain Physical Exam Vital Signs: Vital Signs: Last Vital Signs Temp 97.2 F 06/03/22 11:42 Pulse 64 06/03/22 11:42 Resp 18 06/03/22 11:42 BP 117/56 L 06/03/22 11:42 Pulse Ox 98 06/03/22 11:42 O2 Del Method Room Air 06/03/22 11:42 O2 Flow Rate 6 05/18/22 11:15 BMI result Body Mass Index 21.9 Appearing in no acute distress, vision impairement lung sounds are clear to auscultation heart regular rate rhythm, clear S1, S2 positive bowel sounds, abdomen is soft, nontender neuro patient is alert x3, no focal deficits Objective Data Active Medications Acetaminophen (Acetaminophen Supp 650 Mg Supp.Rect) 650 mg [place] Q6H PRN PRN Reason: Pain, Mild (Pain Scale 1-3) Calcium Carbonate (Calcium Carbonate 500 Mg Tablet) 500 mg PO TID COUNT INCLUDES [facility] Last Admin: 06/03/22 08:12 Dose: Not Given Documented By: GINA Non-Admin Reason: Patient Refused Carvedilol (Carvedilol 6.25 Mg Tablet) 6.25 mg PO BID COUNT [facility]CLUDES [facility]; Protocol Last Admin: 06/03/22 08:07 Dose: 6.25 mg Documented By: GINA Colchicine (Colchicine 0.6 Mg Tablet) 0.3 mg PO Q48H COUNT INCLUDES [facility] Last Admin: 06/02/22 15:51 Dose: 0.3 mg Documented By: LEEANN Heparin Sodium (Porcine) 50 (units/ Sodium Chloride 5 ml) 0 units IVFLUSH QSHI FT COUNT INCLUDES [facility] Last Admin: 06/03/22 08:08 Dose: 50 unit Documented By: GINA Erythromycin (Erythromycin Base 0.5% Oph Oin 1 Gm Tube) 0.25 cm EYE-LEFT MOTH@0900 COUNT INCLUDES [facility] Last Admin: 06/01/22 08:39 Dose: 0.25 cm Documented By: TAMEKA Escitalopram Oxalate (Escitalopram Oxalate 10 Mg Tablet) 10 mg PO DAILY COUNT INCLUDES [facility] Last Admin: 06/03/22 08:11 Dose: Not Given Documented By: GINA Non-Admin Reason: Patient Refused Fluticasone Propionate (Fluticasone Propionate Nasal 16 Gm [place]) 2 spray NOSTRIL-B DAILY COUNT [facility]CLUDES [facility] Last Admin: 06/03/22 08:09 Dose: 2 spray Documented By: GINA Glucose (Glucose Gel 15 Gm Gel..Gram.) 15 gm PO Q15M PRN; Protocol PRN Reason: per Hypoglycemia Standing Ord. Dextrose (D10) 250 mls @ 750 mls/hr IV Q15M PRN; Protocol PRN Reason: per Hypoglycemia Standing Ord. Last Infusion: 05/30/22 17:25 Dose: 0 mls/hr Documented By: CARMEN Multivitamins 10 ml/ Trace Metals 1 ml/ Amino Acids/Electrolytes 1,800 mls @ 75 mls/hr IV DAILY@1800 COUNT [facility]CLUDES [facility] Stop: 06/03/22 17:59 Last Admin: 06/02/22 17:48 Dose: 75 mls/hr Documented By: LEEANN Insulin Human Lispro (Insulin Lispro 100 Unit/Ml 3 Ml Vial) 0 unit SUBCUT QIDACHS COUNT INCLUDES [facility]; Protocol Last Admin: 06/03/22 08:08 Dose: 2 unit Documented By: GINA Lactulose (Lactulose 20 Gm/30 Ml Solution) 20 gm PO BID COUNT [facility]CLUDES [facility] Last Admin: 06/03/22 08:12 Dose: Not Given Documented By: GINA Non-Admin Reason: Patient Refused Latanoprost (Latanoprost 0.005 % Ophth [place] 2.5 Ml Drops) 1 drop EYE-RIGHT DAILY@1700 COUNT [facility]CLUDES [facility] Last Admin: 06/02/22 17:54 Dose: 1 drop Documented By: LEEANN Magnesium Oxide (Magnesium Oxide 400 Mg Tablet) 400 mg PO BID COUNT INCLUDES [facility] Last Admin: 06/03/22 08:07 Dose: 400 mg Documented By: GINA Melatonin (Melatonin 3 Mg Tablet) 6 mg PO DAILY@1800 PRN PRN Reason: Insomnia Last Admin: 06/02/22 19:47 Dose: 6 mg Documented By: TYE Omeprazole (Omeprazole 40 Mg [place].) 40 mg PO BID@0630,1630 COUNT [facility]CLUDES [facility] Last Admin: 06/03/22 05:56 Dose: Not Given Documented By: TYE Non-Admin Reason: Patient Refused Ondansetron HCl (Ondansetron Hcl 4 Mg/2 Ml Vial) 4 mg IVPUSH Q8H PRN PRN Reason: Nausea and Vomiting Polyethylene Glycol (Polyethylene Glycol 3350 17 Gm Powd.Pack) 17 gm PO DAILY COUNT INCLUDES [facility] Last Admin: 06/03/22 08:16 Dose: Not Given Documented By: GINA Non-Admin Reason: Patient Refused Senna/Docusate Sodium (Sennosides/Docusate Sodium Tablet) 2 tab PO BID COUNT INCLUDES [facility] Last Admin: 06/03/22 08:07 Dose: 2 tab Documented By: GINA Sodium Biphosphate/Sodium Phosphate (Sodium Phosphate,[place]-Dibasic 133 Ml Enema) 133 ml [place] ONCE COUNT INCLUDES THE [facility] Sodium Chloride (0.9 % Sodium Chloride Flush 3 Ml Syringe) 3 ml IVFLUSH QSHIFT COUNT INCLUDES THE [facility] Last Admin: 06/03/22 08:09 Dose: 3 ml Documented By: GINA Labs 05/29/22 06:07 06/03/22 05:35 Labs: Laboratory Results - last 24 hr 06/02/22 06/02/22 06/03/22 16:31 19:52 05:35 Anion Gap 13 Estim Creat Clear Calc 111.2 Estimated GFR > 60 POC Glucose 199 H 213 H Random Glucose 225 H Calcium 8.5 Phosphorus 3.9 Magnesium 1.8 06/03/22 06/03/22 07:18 11:16 Anion Gap Estim Creat Clear Calc Estimated GFR POC Glucose 249 H 255 H Random Glucose Calcium Phosphorus Magnesium Assessment and Plan (1) Esophageal mass: Status: Acute Plan 66yo M long-term resident of [place] [facility] with paroxysmal AF (not on AC due to hx upper GI), CHF, BPH, COPD, DM2, GERD, hypothyroidism, depression, ITP, PAD, L eye blindness, and gout presented with several months of intractable nausea and vomiting with weight loss noted to have mild hypokalemia and anterior lateral ST changes ultimately diagnosed with obstructing esophageal mass Esophageal mass with severe esophageal obstruction s/p EGD on 05/18 showing obstructing GE junction mass, biopsy showed high-grade dysplasia op appt with [facility] for Cryo and possible EUS for staging + possible endoscopic resection [likely endoscopic submucoal dissection] + cryo which has to be done at [facility]. [facility] transfer line called (05/29/22 1405) no bed capacity to take patient in transfer. has op tuan. PICC line placed 05/30, started on TPN given inability to take po due to mass Will be discharged back to SNF with TPN on Sunday MSSA UTI completed Abx hypokalemia, hypoMg, hypoCa repleted and resolved lateral ST changes no chest pain, negative trop, no further work up planned constipation continue prn MiraLax, lactulose, docusate/senna DM2 continue SSI HTN continue carvedilol hold lisinopril + furosemide has been declining meds. bp stable paroxysmal AF continue carvedilol for RC no AC due to bleeding in past + ITP unspecified CHF not in acute exacerbation; hold furosemide as above mood disorder continue escitalopram if able to tolerate pills chronic normocytic anemia Hb stable ITP platelet count stable PAD hold pentoxifylline moderate protein-calorie malnutrition BMI 21.9, no oral intake due to mass VTE ppx: [facility]CD[facility]po[facility]. [place] [facility] requires until Sunday to train staff for his return attending - Dr. Self requires ongoing inpatient stay for TPN Time Spent With Patient Time: Total time managing care of this patient today ____ minutes. Quality Stroke Does the patient have a stroke diagnosis?: No VTE Prior VTE?: No VTE Risk Level:: Medical - moderate - high VTE Device Contraindication: N/A - Device Ordered VTE Drug Contraindication: Treatment Not Indicated
[2022-06-03 15:26] VITALS: BP 113/55; PULSE 62; RESP 15; TEMP 36.1; O2SAT 100
[2022-06-03 16:35] LABS: Glucose, Whole Blood 210 mg/dL (60-115)
[2022-06-03] MEDS: Latanoprost 0.005 % Ophth Sol 2.5 ML DROPS 1 DROP EYE-RIGHT (17:15)
[2022-06-03] MEDS: Acetaminophen 325 MG TABLET 650 MG PO (17:27)
--- NOTE | 2022-06-03 22:42 | PC.NURSE ---
Pt refused VS, 2100 medications, POC, non-slip socks. TPN infusing per order through PICC line without any complications.
[2022-06-04] MEDS: Fat Emulsions 20% 250 ML 38 ML IV ×2 (00:08→18:16)
[2022-06-04] MEDS: Heparin Sodium,Porcine Flush 50 UNITS, 0.9 % Sodium Chloride Flush 5 ML IVFLUSH ×3 (01:21→17:17)
[2022-06-04 06:42] LABS: Anion Gap 12 (12-20); Blood Urea Nitrogen 17 mg/dL (9-16); Calcium 8.3 mg/dL (8.4-10.2); Carbon Dioxide 28 mmol/L (22-29); Chloride 103 mmol/L (96-108); Creatinine Clr Calc Pharmacy 106.2; Estimated Glomerular Filt Rate > 60; Glucose Random 311 mg/dL (60-115); Magnesium 1.7 mg/dL (1.6-2.6); Phosphorus 3.6 mg/dL (2.7-4.5); Potassium 4.5 mmol/L (3.3-5.1); Sodium 138 mmol/L (135-145)
[2022-06-04 07:31] VITALS: BP 102/49; PULSE 70; RESP 18; TEMP 36.7; O2SAT 99
[2022-06-04] MEDS: 0.9 % Sodium Chloride Flush 3 ML SYRINGE IVFLUSH ×2 (07:37→17:20)
[2022-06-04] MEDS: Insulin Lispro 100 UNIT/ML 3 ML VIAL SUBCUT ×2 (07:38→17:16)
[2022-06-04 07:47] LABS: Glucose, Whole Blood 319 mg/dL (60-115)
--- NOTE | 2022-06-04 09:23 | HO.PM.IMPN ---
Subjective Subjective Date of Service: 06/04/22 Interval History: seen and examined this morning follow up for obstruction GE junction mass no overnight events Review of Systems Review of Systems: Yes all other systems are reviewed and are negative Constitutional Constitutional: Denies chills and Denies fever(s) Cardiovascular Cardiovascular: Denies chest pain and Denies dyspnea Respiratory Respiratory: Denies dyspnea Gastrointestinal Gastrointestinal: Denies abdominal pain Physical Exam Vital Signs: Vital Signs: Last Vital Signs Temp 98.0 F 06/04/22 07:31 Pulse 70 06/04/22 07:31 Resp 18 06/04/22 07:31 BP 102/49 L 06/04/22 07:31 Pulse Ox 99 06/04/22 07:31 O2 Del Method Room Air 06/04/22 07:31 O2 Flow Rate 6 05/18/22 11:15 BMI result Body Mass Index 21.9 Appearing in no acute distress, blind in left eye lung sounds are clear to auscultation heart regular rate rhythm, clear S1, S2 positive bowel sounds, abdomen is soft, nontender neuro patient is alert x3, no focal deficits Objective Data Active Medications Acetaminophen (Acetaminophen Supp 650 Mg Supp.Rect) 650 mg [place] Q6H PRN PRN Reason: Pain, Mild (Pain Scale 1-3) Acetaminophen (Acetaminophen 325 Mg Tablet) 650 mg PO Q4H PRN PRN Reason: Pain, Mild (Pain Scale 1-3) Last Admin: 06/03/22 17:27 Dose: 650 mg Documented By: GINA Calcium Carbonate (Calcium Carbonate 500 Mg Tablet) 500 mg PO TID [facility] Last Admin: 06/04/22 07:43 Dose: Not Given Documented By: FARHAT Non-Admin Reason: Patient Refused Carvedilol (Carvedilol 6.25 Mg Tablet) 6.25 mg PO BID [facility]; Protocol Last Admin: 06/04/22 07:43 Dose: Not Given Documented By: FARHAT Non-Admin Reason: Patient Refused Colchicine (Colchicine 0.6 Mg Tablet) 0.3 mg PO Q48H [facility] Last Admin: 06/02/22 15:51 Dose: 0.3 mg Documented By: LEEANN Heparin Sodium (Porcine) 50 (units/ Sodium Chloride 5 ml) 0 units IVFLUSH QSHIFT [facility] Last Admin: 06/04/22 07:38 Dose: 50 unit Documented By: FARHAT Erythromycin (Erythromycin Base 0.5% Oph Oin 1 Gm Tube) 0.25 cm EYE-LEFT MOTH@0900 [facility] Last Admin: 06/01/22 08:39 Dose: 0.25 cm Documented By: TAMEKA Escitalopram Oxalate (Escitalopram Oxalate 10 Mg Tablet) 10 mg PO DAILY [facility] Last Admin: 06/04/22 07:44 Dose: Not Given Documented By: FARHAT Non-Admin Reason: Patient Refused Fluticasone Propionate (Fluticasone Propionate Nasal 16 Gm [place]) 2 spray NOSTRIL-B DAILY [facility] Last Admin: 06/03/22 08:09 Dose: 2 spray Documented By: GINA Glucose (Glucose Gel 15 Gm Gel..Gram.) 15 gm PO Q15M PRN; Protocol PRN Reason: per Hypoglycemia Standing Ord. Dextrose (D10) 250 mls @ 750 mls/hr IV Q15M PRN; Protocol PRN Reason: per Hypoglycemia Standing Ord. Last Infusion: 05/30/22 17:25 Dose: 0 mls/hr Documented By: CARMEN Amino Acids/Electrolytes (Clinimix E 5%-15%) 1,800 mls @ 75 mls/hr IV DAILY@1800 [facility] Stop: 06/04/22 17:59 Last Admin: 06/03/22 18:03 Dose: 75 mls/hr Documented By: GINA Insulin Human Lispro (Insulin Lispro 100 Unit/Ml 3 Ml Vial) 0 unit SUBCUT QIDACHS [facility]; Protocol Last Admin: 06/04/22 07:38 Dose: 8 unit Documented By: FARHAT Lactulose (Lactulose 20 Gm/30 Ml Solution) 20 gm PO BID [facility] Last Admin: 06/04/22 07:44 Dose: Not Given Documented By: FARHAT Non-Admin Reason: Patient Refused Latanoprost (Latanoprost 0.005 % Ophth Kathy 2.5 Ml Drops) 1 drop EYE-RIGHT DAILY@1700 [facility] Last Admin: 06/03/22 17:15 Dose: 1 drop Documented By: GINA Magnesium Oxide (Magnesium Oxide 400 Mg Tablet) 400 mg PO BID [facility] Last Admin: 06/04/22 07:44 Dose: Not Given Documented By: FARHAT Non-Admin Reason: Patient Refused Melatonin (Melatonin 3 Mg Tablet) 6 mg PO DAILY@1800 PRN PRN Reason: Insomnia Last Admin: 06/02/22 19:47 Dose: 6 mg Documented By: TYE Omeprazole (Omeprazole 40 Mg Capsule.) 40 mg PO BID@0630,1630 [facility] Last Admin: 06/04/22 05:51 Dose: Not Given Documented By: ULISES Non-Admin Reason: Patient Refused Ondansetron HCl (Ondansetron Hcl 4 Mg/2 Ml Vial) 4 mg IVPUSH Q8H PRN PRN Reason: Nausea and Vomiting Polyethylene Glycol (Polyethylene Glycol 3350 17 Gm Powd.Pack) 17 gm PO DAILY [facility] Last Admin: 06/04/22 07:44 Dose: Not Given Documented By: FARHAT Non-Admin Reason: Patient Refused Senna/Docusate Sodium (Sennosides/Docusate Sodium Tablet) 2 tab PO BID [facility] Last Admin: 06/04/22 07:44 Dose: Not Given Documented By: FARHAT Non-Admin Reason: Patient Refused Sodium Biphosphate/Sodium Phosphate (Sodium Phosphate,[place]-Dibasic 133 Ml Enema) 133 ml ME ONCE [facility] Sodium Chloride (0.9 % Sodium Chloride Flush 3 Ml Syringe) 3 ml IVFLUSH QSHIFT [facility] Last Admin: 06/04/22 07:37 Dose: 3 ml Documented By: FARHAT Labs 05/29/22 06:07 06/04/22 05:48 Labs: Laboratory Results - last 24 hr 06/03/22 06/03/22 06/04/22 11:16 16:27 05:48 Anion Gap 12 Estim Creat Clear Calc 106.2 Estimated GFR > 60 POC Glucose 255 H 210 H Random Glucose 311 H Calcium 8.3 L Phosphorus 3.6 Magnesium 1.7 06/04/22 07:30 Anion Gap Estim Creat Clear Calc Estimated GFR POC Glucose 319 H Random Glucose Calcium Phosphorus Magnesium Assessment and Plan (1) Esophageal mass: Status: Acute Plan 66yo M long-term resident of [place] [place] [facility] with paroxysmal AF (not on AC due to hx upper GI), CHF, BPH, COPD, DM2, GERD, hypothyroidism, depression, ITP, PAD, L eye blindness, and gout presented with several months of intractable nausea and vomiting with weight loss noted to have mild hypokalemia and anterior lateral ST changes ultimately diagnosed with obstructing esophageal mass Esophageal mass with severe esophageal obstruction s/p EGD on 05/18 showing obstructing GE junction mass, biopsy showed high-grade dysplasia op appt with [facility] for Cryo and possible EUS for staging + possible endoscopic resection [likely endoscopic submucoal dissection] + cryo which has to be done at [facility]. [facility] transfer line called (05/29/22 1405) no bed capacity to take patient in transfer. has op tuan. PICC line placed 05/30, started on TPN given inability to take po due to mass Will be discharged back to SNF with TPN on Sunday MSSA UTI completed Abx hypokalemia, hypoMg, hypoCa repleted and resolved lateral ST changes no chest pain, negative trop, no further work up planned constipation continue prn MiraLax, lactulose, docusate/senna DM2 continue SSI HTN continue carvedilol hold lisinopril + furosemide has been declining meds. bp stable paroxysmal AF continue carvedilol for RC no AC due to bleeding in past + ITP unspecified CHF not in acute exacerbation; hold furosemide as above mood disorder continue escitalopram if able to tolerate pills chronic normocytic anemia Hb stable ITP platelet count stable PAD hold pentoxifylline moderate protein-calorie malnutrition BMI 21.9, no oral intake due to mass VTE ppx: SCD[facility] dispo: [facility]. [place] [facility] requires until Sunday to train staff for his return attending - Dr. Self requires ongoing inpatient stay for TPN Time Spent With Patient Time: Total time managing care of this patient today ____ minutes. Quality Stroke Does the patient have a stroke diagnosis?: No VTE Prior VTE?: No VTE Risk Level:: Medical - moderate - high VTE Device Contraindication: N/A - Device Ordered VTE Drug Contraindication: Treatment Not Indicated
[2022-06-04] MEDS: Fluticasone Propionate Nasal 16 GM SPRAY 2 SPRAY NOSTRIL-B (09:45)
[2022-06-04] MEDS: Acetaminophen 325 MG TABLET 650 MG PO (11:11)
[2022-06-04 11:18] LABS: Glucose, Whole Blood 203 mg/dL (60-115)
[2022-06-04 15:54] VITALS: BP 128/60; PULSE 68; RESP 15; TEMP 36.1; O2SAT 99
[2022-06-04 16:30] LABS: Glucose, Whole Blood 264 mg/dL (60-115)
[2022-06-04] MEDS: Colchicine 0.6 MG TABLET 0.3 MG PO (17:09)
[2022-06-04] MEDS: Latanoprost 0.005 % Ophth Sol 2.5 ML DROPS 1 DROP EYE-RIGHT (17:29)
[2022-06-04] MEDS: Melatonin 3 MG TABLET 6 MG PO (17:56)
--- NOTE | 2022-06-04 19:39 | PC.NURSE ---
Addendum entered by Fred Cifuentes RN 06/05/22 01:39: pt voicing frustration at staff due to being bothered and having traffic in and out of his room. Pt also voiced he was upset with being hooked up to the pump and requested I shut it off so he could sleep. When I told him that the medication (TPN and Lipids) were important as a form of nutrition to meet caloric needs he had told me he didnt care and requsted I shut the pump off and to not bother him. Pt also stated he would complain about night time staff to management in the morning. Pump was turned off and all fluids paused at 0138am. Will continue to monitor. Original Note: Pt refusing all evening medications. When this RN attempted to educated pt on differences between the medications and times he was given at [facility] and an acute hospital setting pt cut me off and would not allow me to educate him on the importance of the medication that was scheduled for him at 21:00. Will continue to monitor.
[2022-06-05] MEDS: Fat Emulsions 20% 250 ML 38 ML IV ×2 (01:02→17:45)
[2022-06-05] MEDS: Heparin Sodium,Porcine Flush 50 UNITS, 0.9 % Sodium Chloride Flush 5 ML IVFLUSH ×2 (01:38→07:24)
[2022-06-05 07:11] LABS: Anion Gap 13 (12-20); Blood Urea Nitrogen 18 mg/dL (9-16); Calcium 8.4 mg/dL (8.4-10.2); Carbon Dioxide 28 mmol/L (22-29); Chloride 104 mmol/L (96-108); Creatinine Clr Calc Pharmacy 101.8; Estimated Glomerular Filt Rate > 60; Glucose Random 220 mg/dL (60-115); Magnesium 1.7 mg/dL (1.6-2.6); Phosphorus 4.2 mg/dL (2.7-4.5); Potassium 3.9 mmol/L (3.3-5.1); Sodium 141 mmol/L (135-145)
[2022-06-05 07:17] VITALS: BP 100/53; PULSE 87; RESP 18; TEMP 36.2; O2SAT 100
[2022-06-05] MEDS: 0.9 % Sodium Chloride Flush 3 ML SYRINGE IVFLUSH (07:24)
[2022-06-05] MEDS: Fluticasone Propionate Nasal 16 GM SPRAY 2 SPRAY NOSTRIL-B (07:30)
[2022-06-05 07:58] LABS: Glucose, Whole Blood 230 mg/dL (60-115)
--- NOTE | 2022-06-05 10:32 | MHC.CLN ---
F/U REVIEWED LABS. DISCUSSED WITH PHARMACY. CONTINUE TPN D15AA5% AT MAX GOAL RATE 75ML/HR WITH 38ML/HR OF 20% LIPIDS. PROVIDES 2190 KCALS (30 KCALS/KG) TOTAL FROM FORMULA AND LIPIDS AND 90 G PROTEIN (1.2 G/KG). REPLETE LYTES NEEDED. RECEIVES FULL LIQUID DIET; UNABLE TO MEET NUTRITIONAL NEEDS VIA PO DUE TO ESOPHAGEAL MASS. FOLLOWING WITH TEAM.
--- NOTE | 2022-06-05 10:36 | HO.PM.IMPN ---
Subjective Subjective Date of Service: 06/05/22 Physical Exam Vital Signs: Vital Signs: Last Vital Signs Temp 97.2 F 06/05/22 07:17 Pulse 87 06/05/22 07:17 Resp 18 06/05/22 07:17 BP 100/53 L 06/05/22 07:17 Pulse Ox 100 06/05/22 07:17 O2 Del Method Room Air 06/05/22 07:17 O2 Flow Rate 6 05/18/22 11:15 BMI result Body Mass Index 21.9 Objective Data Active Medications Acetaminophen (Acetaminophen Supp 650 Mg Supp.Rect) 650 mg [place] Q6H PRN PRN Reason: Pain, Mild (Pain Scale 1-3) Acetaminophen (Acetaminophen 325 Mg Tablet) 650 mg PO Q4H PRN PRN Reason: Pain, Mild (Pain Scale 1-3) Last Admin: 06/04/22 11:11 Dose: 650 mg Documented By: FARHAT Calcium Carbonate (Calcium Carbonate 500 Mg Tablet) 500 mg PO TID [facility] Last Admin: 06/05/22 08:50 Dose: Not Given Documented By: LEEANN Non-Admin Reason: Patient Refused Carvedilol (Carvedilol 6.25 Mg Tablet) 6.25 mg PO BID [facility]; Protocol Last Admin: 06/05/22 08:50 Dose: Not Given Documented By: LEEANN Non-Admin Reason: Patient Refused Colchicine (Colchicine 0.6 Mg Tablet) 0.3 mg PO Q48H [facility] Last Admin: 06/04/22 17:09 Dose: 0.3 mg Documented By: FARHAT Heparin Sodium (Porcine) 50 (units/ Sodium Chloride 5 ml) 0 units IVFLUSH QSHIFT [facility] Last Admin: 06/05/22 07:24 Dose: 50 unit Documented By: LEEANN Erythromycin (Erythromycin Base 0.5% Oph Oin 1 Gm Tube) 0.25 cm EYE-LEFT MOTH@0900 [facility] Last Admin: 06/05/22 08:50 Dose: Not Given Documented By: LEEANN Non-Admin Reason: Patient Refused Escitalopram Oxalate (Escitalopram Oxalate 10 Mg Tablet) 10 mg PO DAILY [facility] Last Admin: 06/05/22 08:50 Dose: Not Given Documented By: LEEANN Non-Admin Reason: Patient Refused Fluticasone Propionate (Fluticasone Propionate Nasal 16 Gm [place]) 2 spray NOSTRIL-B DAILY [facility] Last Admin: 06/05/22 07:30 Dose: 2 spray Documented By: LEEANN Glucose (Glucose Gel 15 Gm Gel..Gram.) 15 gm PO Q15M PRN; Protocol PRN Reason: per Hypoglycemia Standing Ord. Dextrose (D10) 250 mls @ 750 mls/hr IV Q15M PRN; Protocol PRN Reason: per Hypoglycemia Standing Ord. Last Infusion: 05/30/22 17:25 Dose: 0 mls/hr Documented By: CARMEN Amino Acids/Electrolytes (Clinimix E 5%-15%) 1,800 mls @ 75 mls/hr IV DAILY@1800 [facility] Stop: 06/05/22 17:59 Last Infusion: 06/05/22 07:19 Dose: 75 mls/hr Documented By: LEEANN Multivitamins 10 ml/ Trace Metals 1 ml/ Amino Acids/Electrolytes 1,800 mls @ 75 mls/hr IV DAILY@1800 [facility] Stop: 06/06/22 17:59 Fat Emulsion Intravenous (Intralipid) 228 mls @ 38 mls/hr IV BID@0000,1800 [facility] Stop: 06/06/22 05:59 Insulin Human Lispro (Insulin Lispro 100 Unit/Ml 3 Ml Vial) 0 unit SUBCUT QIDACHS [facility]; Protocol Last Admin: 06/05/22 08:50 Dose: Not Given Documented By: LEEANN Non-Admin Reason: Patient Refused Lactulose (Lactulose 20 Gm/30 Ml Solution) 20 gm PO BID [facility] Last Admin: 06/05/22 08:50 Dose: Not Given Documented By: LEEANN Non-Admin Reason: Patient Refused Latanoprost (Latanoprost 0.005 % Ophth Kathy 2.5 Ml Drops) 1 drop EYE-RIGHT DAILY@1700 [facility] Last Admin: 06/04/22 17:29 Dose: 1 drop Documented By: FARHAT Magnesium Oxide (Magnesium Oxide 400 Mg Tablet) 400 mg PO BID [facility] Last Admin: 06/05/22 08:50 Dose: Not Given Documented By: LEEANN Non-Admin Reason: Patient Refused Melatonin (Melatonin 3 Mg Tablet) 6 mg PO DAILY@1800 PRN PRN Reason: Insomnia Last Admin: 06/04/22 17:56 Dose: 6 mg Documented By: FARHAT Omeprazole (Omeprazole 40 Mg Capsule.) 40 mg PO BID@0630,6660 [facility] Last Admin: 06/05/22 05:26 Dose: Not Given Documented By: EMILY Non-Admin Reason: Patient Refused Ondansetron HCl (Ondansetron Hcl 4 Mg/2 Ml Vial) 4 mg IVPUSH Q8H PRN PRN Reason: Nausea and Vomiting Polyethylene Glycol (Polyethylene Glycol 3350 17 Gm Powd.Pack) 17 gm PO DAILY [facility] Last Admin: 06/05/22 08:50 Dose: Not Given Documented By: LEAENN Non-Admin Reason: Patient Refused Senna/Docusate Sodium (Sennosides/Docusate Sodium Tablet) 2 tab PO BID [facility] Last Admin: 06/05/22 08:51 Dose: Not Given Documented By: LEEANN Non-Admin Reason: Patient Refused Sodium Biphosphate/Sodium Phosphate (Sodium Phosphate,[place]-Dibasic 133 Ml Enema) 133 ml [place] ONCE [facility] Sodium Chloride (0.9 % Sodium Chloride Flush 3 Ml Syringe) 3 ml IVFLUSH QSHIFT [facility] Last Admin: 06/05/22 07:24 Dose: 3 ml Documented By: LEEANN Labs 05/29/22 06:07 06/05/22 05:22 Labs: Laboratory Results - last 24 hr 06/04/22 06/04/22 06/05/22 11:10 16:22 05:22 Anion Gap 13 Estim Creat Clear Calc 101.8 Estimated GFR > 60 POC Glucose 203 H 264 H Random Glucose 220 H Calcium 8.4 Phosphorus 4.2 Magnesium 1.7 06/05/22 07:20 Anion Gap Estim Creat Clear Calc Estimated GFR POC Glucose 230 H Random Glucose Calcium Phosphorus Magnesium Assessment and Plan (1) Esophageal mass: Status: Acute Plan 66yo M long-term resident of [facility] with paroxysmal AF (not on AC due to hx upper GI), CHF, BPH, COPD, DM2, GERD, hypothyroidism, depression, ITP, PAD, L eye blindness, and gout presented with several months of intractable nausea and vomiting with weight loss noted to have mild hypokalemia and anterior lateral ST changes ultimately diagnosed with obstructing esophageal mass. Esophageal mass with severe esophageal obstruction s/p EGD on 05/18 showing obstructing GE junction mass, biopsy showed high-grade dysplasia op appt with [facility] for Cryo and possible EUS for staging + possible endoscopic resection [likely endoscopic submucoal dissection] + cryo which has to be done at [facility]. [facility] transfer line called (05/29/22 1405) no bed capacity to take patient in transfer. has op tuan. PICC line placed 05/30, started on TPN given inability to take po due to mass Will be discharged back to SNF with TPN on Sunday MSSA UTI completed Abx hypokalemia, hypoMg, hypoCa repleted and resolved lateral ST changes no chest pain, negative trop, no further work up planned constipation continue prn MiraLax, lactulose, docusate/senna DM2 continue SSI HTN continue carvedilol hold lisinopril + furosemide has been declining meds. bp stable paroxysmal AF continue carvedilol for RC no AC due to bleeding in past + ITP unspecified CHF not in acute exacerbation; hold furosemide as above mood disorder continue escitalopram if able to tolerate pills chronic normocytic anemia Hb stable ITP platelet count stable PAD hold pentoxifylline moderate protein-calorie malnutrition BMI 21.9, no oral intake due to mass VTE ppx: [facility]po[facility]. [place] [facility] requires until Sunday to train staff for his return attending - Dr. Self requires ongoing inpatient stay for TPN Time Spent With Patient Time: Total time managing care of this patient today ____ minutes. Quality Stroke Does the patient have a stroke diagnosis?: No VTE Prior VTE?: No VTE Risk Level:: Medical - moderate - high VTE Device Contraindication: N/A - Device Ordered VTE Drug Contraindication: Treatment Not Indicated
[2022-06-05 11:14] VITALS: BP 106/57; PULSE 74; RESP 16; TEMP 36.2; O2SAT 100
[2022-06-05 11:36] LABS: Glucose, Whole Blood 77 mg/dL (60-115)
[2022-06-05 15:14] VITALS: BP 158/83; PULSE 77; RESP 19; TEMP 36.6; O2SAT 92
[2022-06-05 16:35] LABS: Glucose, Whole Blood 329 mg/dL (60-115)
--- NOTE | 2022-06-05 16:44 | PC.NURSE ---
OUTPATIENT SCHEDULER Juan made aware pt continues to refuse all PO medications and insulin despite education provided to pt on importance of compliance. Pt allowed TPN and Lipids to be restarted this AM, OUTPATIENT SCHEDULER notified.
[2022-06-05] MEDS: Latanoprost 0.005 % Ophth Sol 2.5 ML DROPS 1 DROP EYE-RIGHT (17:44)
[2022-06-05] MEDS: Melatonin 3 MG TABLET 6 MG PO (17:44)
[2022-06-06] MEDS: Fat Emulsions 20% 250 ML 38 ML IV ×3 (00:30→23:47)
[2022-06-06] MEDS: Heparin Sodium,Porcine Flush 50 UNITS, 0.9 % Sodium Chloride Flush 5 ML IVFLUSH ×3 (00:37→23:50)
[2022-06-06 06:53] LABS: Anion Gap 16 (12-20); Blood Urea Nitrogen 16 mg/dL (9-16); Calcium 8.4 mg/dL (8.4-10.2); Carbon Dioxide 23 mmol/L (22-29); Chloride 104 mmol/L (96-108); Creatinine Clr Calc Pharmacy 107.8; Estimated Glomerular Filt Rate > 60; Glucose Random 243 mg/dL (60-115); Magnesium 1.6 mg/dL (1.6-2.6); Phosphorus 4.3 mg/dL (2.7-4.5); Potassium 4.1 mmol/L (3.3-5.1); Sodium 139 mmol/L (135-145)
[2022-06-06 07:19] VITALS: BP 123/56; PULSE 83; RESP 18; TEMP 36.1; O2SAT 100
[2022-06-06 07:33] LABS: Glucose, Whole Blood 266 mg/dL (60-115)
--- NOTE | 2022-06-06 07:35 | P.DS_ITS ---
DS: Providers Provider Date of Service: 06/06/22 Date of admission: 05/17/22 18:17 Primary care physician: NAVNEET CAPUTO Consults: 05/17/22 18:22 Consult to Gastroenterology Routine Consulting Provider: Bina Zuniga Reason for consultation: Intractable nausea vomiting Has provider been notified: No 05/22/22 09:51 Consult to Hematology / Oncology Routine Consulting Provider: [facility] Oncology/Hematology Reason for consultation: esophageal mass with stricture DS: Diagnosis Discharge Diagnosis (1) Esophageal mass: Status: Acute DS: Summary Hospital Course Hospital Course: HP as per admitting provider 66 year old gentleman with past medical history significant for paroxysmal atrial fibrillation, congestive heart failure, BPH, COPD, insulin-dependent type 2 diabetes mellitus, hypothyroidism, depression, ITP, blindness of left eye, gout history of upper GI bleed resident of [facility] presented to [facility] due to intractable nausea vomiting of several months duration, patient has been admitted in the past with similar symptoms in November 2021 subsequently underwent cholecystectomy in January 2022, as per patient he is unable to keep food down he vomits all kind of food except able to tolerate lollipops, he denies associated abdominal pain he, no fevers, no chills, no diarrhea he has lost 70 lb since November, he feels hungry, tries to eat but throws up every time he eats, workup in the ER showed positive urinalysis, hypokalemia otherwise normal renal function, chronic thrombocytopenia, abdomen and pelvic CT showed no evidence of metastatic disease in abdomen or pelvis, cirrhosis with portal hypertension with extensive perisplenic varices, some minimal tree-in-bud opacities in the right lung base and 6 mm pleural based left lower lobe nodule, patient also noted to have large stool ball in the rectum, small left inguinal hernia containing only fat patient is being followed closely by Gastroenterology as outpatient for ongoing chronic nausea and vomiting patient be admitted to medical floor due to persistent intractable nausea vomiting, hypokalemia and significant weight loss.? Patient also noted to have anterior lateral ST changes on EKG patient denies chest pain, noted to have normal troponin . Esophageal mass with severe esophageal obstruction s/p EGD on 05/18 showing obstructing GE junction mass, biopsy showed high-grade dysplasia op appt with [facility] for Cryo and possible EUS for staging + possible endoscopic resection [likely endoscopic submucoal dissection] + cryo which has to be done at [facility]. PICC line placed 05/30, started on TPN given inability to take po due to mass Will be discharged back to SNF with TPN MSSA UTI completed Abx hypokalemia, hypoMg, hypoCa repleted and resolved lateral ST changes no chest pain, negative trop, no further work up planned constipation DM2 continue home medication HTN continue carvedilol hold lisinopril + furosemide has been declining meds. bp stable paroxysmal AF continue carvedilol for RC no AC due to bleeding in past + ITP unspecified CHF not in acute exacerbation; hold furosemide as above mood disorder continue escitalopram if able to tolerate pills chronic normocytic anemia Hb stable ITP platelet count stable PAD hold pentoxifylline moderate protein-calorie malnutrition BMI 21.9, no oral intake due to mass Time Spent with Patient Time attestation: Total time managing care of this patient today ____ minutes. Physical Exam Vital Signs: Vital Signs: Last Vital Signs Temp 96.9 F 06/06/22 07:19 Pulse 83 06/06/22 07:19 Resp 18 06/06/22 07:19 BP 123/56 L 06/06/22 07:19 Pulse Ox 100 06/06/22 07:19 O2 Del Method Room Air 06/06/22 07:19 O2 Flow Rate 6 05/18/22 11:15 BMI result Body Mass Index 21.9 Appearing in no acute distress head is normocephalic atraumatic eyes pupils are PERRLA sclera is anicteric mouth throat mucous membranes are intact and moist neck is supple no lymphadenopathy, no JVD noted lung sounds are clear to auscultation heart regular rate rhythm, clear S1, S2 positive bowel sounds, abdomen is soft, nontender neuro patient is alert x3, no focal deficits DS: Data Data Completed and Pending Completed studies during hospitalization [Text1]: Pending at discharge 05/18/22 10:54 Surgical [PTH] Routine Procedures Introduction of Mineral-based Topical Hemostatic Agent into Upper GI, Via Natural or Artificial Opening Endoscopic, [employer] 6 (02/20/20) Resection of Gallbladder, Percutaneous Endoscopic Approach (02/01/22) Transfusion of Nonautologous Frozen Plasma into Peripheral Vein, Percutaneous Approach (02/01/22) Transfusion of Nonautologous Platelets into Peripheral Vein, Percutaneous Approach (12/14/22) Transfusion of Nonautologous Red Blood Cells into Peripheral Vein, Percutaneous Approach (02/20/20) Labs on day of discharge: Laboratory Results - last 24 hr 06/05/22 06/05/22 06/05/22 07:20 11:18 16:26 Sodium Potassium Chloride Carbon Dioxide Anion Gap BUN Creatinine Estim Creat Clear Calc Estimated GFR POC Glucose 230 H 77 329 H Random Glucose Calcium Phosphorus Magnesium 06/06/22 06/06/22 05:44 07:23 Sodium 139 Potassium 4.1 Chloride 104 Carbon Dioxide 23 Anion Gap 16 BUN 16 Creatinine 0.67 Estim Creat Clear Calc 107.8 Estimated GFR > 60 POC Glucose 266 H Random Glucose 243 H Calcium 8.4 Phosphorus 4.3 Magnesium 1.6 Discharge Plan Discharge Anticipated Discharge Date/Time: 06/06/22 07:32 Patient Disposition: er [facility] Discharge Diagnosis: Esophageal mass Referrals: [facility] [Other] - 1 Week ([facility] WILL BE CALLING FACILITY WHEN THEY HAVE AN OPENING FOR PATIENT. ) [facility] [Outside] - 1 Day ([facility], TPN) Discharge Medications: Continued latanoprost 0.005 % drops 1 drp ophthalmic-Right DAILY@1700 carvedilol 12.5 mg tablet 1 tab PO BID@0800,1700 atorvastatin 10 mg tablet 1 tab PO DAILY@1700 citalopram 10 mg tablet 1 tab PO DAILY Rx Instructions: TDD = 30 MG citalopram 20 mg tablet 1 tab PO DAILY Rx Instructions: TDD = 30 MG hydroxyzine HCl 25 mg tablet 25 mg PO DAILY omeprazole 40 mg Capsule,Delayed Release(Dr/Ec) 40 mg PO BID@0630,1630 Qty: 60 0RF insulin aspart U-100 [Novolog U-100 Insulin aspart] 100 unit/mL solution See Protocol subcut QIDACHS Protocol: Insulin Correction Scale Less than or equal to 110 ---- Give (units): 0 111 to 150 Give (units): 0 151 to 200 Give (units): 2 201 to 250 Give (units): 4 251 to 300 Give (units): 6 301 to 350 Give (units): 8 Greater than 350 Give (units): 10 Call MD if Blood Glucose > : 350 erythromycin 5 mg/gram (0.5 %) ointment 1 appl ophthalmic-Left MOTH@0900 calcium carbonate [Calcium Antacid] 200 mg calcium (500 mg) Tablet,Chewable 200 mg PO TID@0800,1200,1700 cholecalciferol (vitamin D3) 1,250 mcg (50,000 unit) Capsule 1,250 mcg PO QMONTH Rx Instructions: TAKES ON THE 16TH OF EACH MONTH melatonin 5 mg Tablet 5 mg PO DAILY@1700 Levemir U-100 Insulin 100 unit/mL solution 10 unit subcut DAILY sucralfate 1 gram tablet 1 g PO QID magnesium oxide 400 mg magnesium Tablet 400 mg PO DAILY glucagon 1 mg recon soln 1 mg subcut Q20M PRN (Reason: Hypoglycemia) Rx Instructions: until target blood sugar attained fluticasone propionate 50 mcg/actuation spray,suspension 2 spray intranasal DAILY colchicine 0.6 mg tablet 0.3 mg PO Q OTHER DAY Qty: 15 0RF ondansetron HCl 4 mg tablet 4 mg PO Q8H PRN (Reason: nausea and vomiting) Qty: 20 0RF Discontinued furosemide 20 mg tablet 1 tab PO DAILY acetaminophen 500 mg Tablet 1,000 mg PO TID@0800,1300,1700 lisinopril 5 mg tablet 1 tab PO DAILY pentoxifylline 400 mg tablet extended release 400 mg PO BID Diet: Advance to usual diet Activity on Discharge: As tolerated Stand Alone Forms: Patient Portal Discharge page Care Plan Goals: continue NPO status with TPN due to esophageal mass and stricture. take oral medications as tolerated Health Concerns: Esophageal mass Plan of Treatment: Follow-up at [facility] for further testing of esophageal mass and esophageal stricture Continue TPN Assessment: See discharge summary
[2022-06-06] MEDS: Fluticasone Propionate Nasal 16 GM SPRAY 2 SPRAY NOSTRIL-B (09:04)
[2022-06-06 11:58] LABS: Glucose, Whole Blood 221 mg/dL (60-115)
--- NOTE | 2022-06-06 12:42 | PC.NURSE ---
ROLANDO portillo pt continues to refuse all medications including TPN. Education provided to pt on importance of scheduled medications and TPN, pt continues to decline.
--- NOTE | 2022-06-06 14:15 | P.PNIM_ITS ---
Subjective Subjective Date of Service: 06/06/22 Review of Systems Follow up Esophageal mass on TPN still NPO no pain or discomfort Physical Exam Vital Signs: Vital Signs: Last Vital Signs Temp 96.9 F 06/06/22 07:19 Pulse 83 06/06/22 07:19 Resp 18 06/06/22 07:19 BP 123/56 L 06/06/22 07:19 Pulse Ox 100 06/06/22 07:19 O2 Del Method Room Air 06/06/22 07:19 O2 Flow Rate 6 05/18/22 11:15 BMI result Body Mass Index 21.9 Appearing in no acute distress, left eye blindness lung sounds are clear to auscultation heart regular rate rhythm, clear S1, S2 positive bowel sounds, abdomen is soft, nontender neuro patient is alert x3, no focal deficits Objective Data Active Medications Acetaminophen (Acetaminophen Supp 650 Mg Supp.Rect) 650 mg WI Q6H PRN PRN Reason: Pain, Mild (Pain Scale 1-3) Acetaminophen (Acetaminophen 325 Mg Tablet) 650 mg PO Q4H PRN PRN Reason: Pain, Mild (Pain Scale 1-3) Last Admin: 06/04/22 11:11 Dose: 650 mg Documented By: FARHAT Calcium Carbonate (Calcium Carbonate 500 Mg Tablet) 500 mg PO TID [facility] Last Admin: 06/06/22 08:53 Dose: Not Given Documented By: LEEANN Non-Admin Reason: Patient Refused Carvedilol (Carvedilol 6.25 Mg Tablet) 6.25 mg PO BID [facility]; Protocol Last Admin: 06/06/22 08:54 Dose: Not Given Documented By: LEEANN Non-Admin Reason: Patient Refused Colchicine (Colchicine 0.6 Mg Tablet) 0.3 mg PO Q48H [facility] Last Admin: 06/06/22 08:54 Dose: Not Given Documented By: LEEANN Non-Admin Reason: Patient Refused Heparin Sodium (Porcine) 50 (units/ Sodium Chloride 5 ml) 0 units IVFLUSH QSHIFT [facility] Last Admin: 06/06/22 08:53 Dose: Not Given Documented By: LEEANN Non-Admin Reason: Patient Refused Erythromycin (Erythromycin Base 0.5% Oph Oin 1 Gm Tube) 0.25 cm EYE-LEFT MOTH@0900 [facility] Last Admin: 06/05/22 08:50 Dose: Not Given Documented By: LEEANN Non-Admin Reason: Patient Refused Escitalopram Oxalate (Escitalopram Oxalate 10 Mg Tablet) 10 mg PO DAILY [facility] Last Admin: 06/06/22 08:54 Dose: Not Given Documented By: LEEANN Non-Admin Reason: Patient Refused Fluticasone Propionate (Fluticasone Propionate Nasal 16 Gm [place]) 2 spray NOSTRIL-B DAILY [facility] Last Admin: 06/06/22 09:04 Dose: 2 spray Documented By: LEEANN Glucose (Glucose Gel 15 Gm Gel..Gram.) 15 gm PO Q15M PRN; Protocol PRN Reason: per Hypoglycemia Standing Ord. Dextrose (D10) 250 mls @ 750 mls/hr IV Q15M PRN; Protocol PRN Reason: per Hypoglycemia Standing Ord. Last Infusion: 05/30/22 17:25 Dose: 0 mls/hr Documented By: BERNARDINO-LIANNA Multivitamins 10 ml/ Trace Metals 1 ml/ Amino Acids/Electrolytes 1,800 mls @ 75 mls/hr IV DAILY@1800 [facility] Stop: 06/06/22 17:59 Last Infusion: 06/06/22 04:25 Dose: 0 mls/hr Documented By: EMILY Amino Acids/Electrolytes (Clinimix E 5%-15%) 1,800 mls @ 75 mls/hr IV DAILY@1800 [facility] Stop: 06/07/22 17:59 Fat Emulsion Intravenous (Intralipid) 228 mls @ 38 mls/hr IV DAILY@0000,1800 [facility] Stop: 06/07/22 05:59 Insulin Human Lispro (Insulin Lispro 100 Unit/Ml 3 Ml Vial) 0 unit SUBCUT QIDACHS [facility]; Protocol Last Admin: 06/06/22 12:41 Dose: Not Given Documented By: LEEANN Non-Admin Reason: Patient Refused Lactulose (Lactulose 20 Gm/30 Ml Solution) 20 gm PO BID [facility] Last Admin: 06/06/22 08:54 Dose: Not Given Documented By: LEEANN Non-Admin Reason: Patient Refused Latanoprost (Latanoprost 0.005 % Ophth Kathy 2.5 Ml Drops) 1 drop EYE-RIGHT DAILY@1700 [facility] Last Admin: 06/05/22 17:44 Dose: 1 drop Documented By: LEEANN Magnesium Oxide (Magnesium Oxide 400 Mg Tablet) 400 mg PO BID [facility] Last Admin: 06/06/22 08:54 Dose: Not Given Documented By: LEEANN Non-Admin Reason: Patient Refused Melatonin (Melatonin 3 Mg Tablet) 6 mg PO DAILY@1800 PRN PRN Reason: Insomnia Last Admin: 06/05/22 17:44 Dose: 6 mg Documented By: LEEANN Omeprazole (Omeprazole 40 Mg Capsule.Dr) 40 mg PO BID@0630,1630 [facility] Last Admin: 06/06/22 06:13 Dose: Not Given Documented By: EMILY Non-Admin Reason: Patient Refused Ondansetron HCl (Ondansetron Hcl 4 Mg/2 Ml Vial) 4 mg IVPUSH Q8H PRN PRN Reason: Nausea and Vomiting Polyethylene Glycol (Polyethylene Glycol 3350 17 Gm Powd.Pack) 17 gm PO DAILY [facility] Last Admin: 06/06/22 08:54 Dose: Not Given Documented By: LEEANN Non-Admin Reason: Patient Refused Senna/Docusate Sodium (Sennosides/Docusate Sodium Tablet) 2 tab PO BID [facility] Last Admin: 06/06/22 08:54 Dose: Not Given Documented By: LEEANN Non-Admin Reason: Patient Refused Sodium Biphosphate/Sodium Phosphate (Sodium Phosphate,Ida-Dibasic 133 Ml Enema) 133 ml WI ONCE [facility] Sodium Chloride (0.9 % Sodium Chloride Flush 3 Ml Syringe) 3 ml IVFLUSH QSHIFT [facility] Last Admin: 06/06/22 08:53 Dose: Not Given Documented By: LEEANN Non-Admin Reason: Patient Refused Labs 05/29/22 06:07 06/06/22 05:44 Labs: Laboratory Results - last 24 hr 06/05/22 06/06/22 06/06/22 16:26 05:44 07:23 Anion Gap 16 Estim Creat Clear Calc 107.8 Estimated GFR > 60 POC Glucose 329 H 266 H Random Glucose 243 H Calcium 8.4 Phosphorus 4.3 Magnesium 1.6 06/06/22 11:12 Anion Gap Estim Creat Clear Calc Estimated GFR POC Glucose 221 H Random Glucose Calcium Phosphorus Magnesium Assessment and Plan (1) Esophageal mass: Status: Acute Plan 66yo M long-term resident of [facility] with paroxysmal AF (not on AC due to hx upper GI), CHF, BPH, COPD, DM2, GERD, hypothyroidism, depression, ITP, PAD, L eye blindness, and gout presented with several months of intractable nausea and vomiting with weight loss noted to have mild hypokalemia and anterior lateral ST changes ultimately diagnosed with obstructing esophageal mass. Esophageal mass with severe esophageal obstruction s/p EGD on 05/18 showing obstructing GE junction mass, biopsy showed high-grade dysplasia op appt with [facility] for Cryo and possible EUS for staging + possible endoscopic resection [likely endoscopic submucoal dissection] + cryo which has to be done at [facility]. [facility] transfer line called (05/29/22 1405) no bed capacity to take patient in transfer. has op tuan. PICC line placed 05/30, started on TPN given inability to take po due to mass Will be discharged back to SNF with TPN pending training to staff on TPN MSSA UTI completed Abx hypokalemia, hypoMg, hypoCa repleted and resolved lateral ST changes no chest pain, negative trop, no further work up planned constipation continue prn MiraLax, lactulose, docusate/senna DM2 continue SSI HTN continue carvedilol hold lisinopril + furosemide has been declining meds. bp stable paroxysmal AF continue carvedilol for RC no AC due to bleeding in past + ITP unspecified CHF not in acute exacerbation; hold furosemide as above mood disorder continue escitalopram if able to tolerate pills chronic normocytic anemia Hb stable ITP platelet count stable PAD hold pentoxifylline moderate protein-calorie malnutrition BMI 21.9, no oral intake due to mass VTE ppx: SCDs dispo: [facility] arranged at [facility]. [place] [facility] requires until Sunday to train staff for his return attending - Dr. Bucio requires ongoing inpatient stay for TPN Time Spent With Patient Time: Total time managing care of this patient today ____ minutes. Quality Stroke Does the patient have a stroke diagnosis?: No VTE Prior VTE?: No VTE Risk Level:: Medical - moderate - high VTE Device Contraindication: N/A - Device Ordered VTE Drug Contraindication: Treatment Not Indicated
--- NOTE | 2022-06-06 15:25 | MHC.CM.PN ---
Addendum entered by Claudia Cadena 06/06/22 15:46: A message received via [facility] received stating that they received the paper script; which was faxed prio to DON request to sign form she intends to send. Original Note: [facility] requested clinical info, late yesterday. The information was sent at 8am. . They requested an actual prescription @ 2pm; which was sent to the facility. T/W received a call from the DON (T/W left a VM late am requesting assist with transfer). The DON stated that there is a TPN form to be completed. She was informed that [facility] had sent information 2x as requested. She stated that she will send the completed form for signature. CM fax # provided.
[2022-06-06 15:41] VITALS: BP 131/57; PULSE 74; RESP 20; TEMP 36.9; O2SAT 98
[2022-06-06 16:25] LABS: Glucose, Whole Blood 164 mg/dL (60-115)
[2022-06-06] MEDS: Latanoprost 0.005 % Ophth Sol 2.5 ML DROPS 1 DROP EYE-RIGHT (17:26)
[2022-06-06] MEDS: 0.9 % Sodium Chloride Flush 3 ML SYRINGE IVFLUSH (17:26)
--- NOTE | 2022-06-06 20:55 | PC.NURSE ---
pt refused all meds and care , no POC, No VSs, , notified
--- NOTE | 2022-06-07 02:11 | PC.NURSE ---
Pt, demands to discontinue lipid treatment. After multiple incidence of down stream occlusion and the reoccurring alarm he expressed he wanted the medication turned off in order to sleep . I educated the to pt, about keeping his arm straight and the importance of finishing said treatment however he refused. notified lipid treatment is paused at this time.
[2022-06-07 07:29] LABS: Glucose, Whole Blood 338 mg/dL (60-115)
[2022-06-07 07:30] VITALS: BP 114/55; PULSE 83; RESP 18; TEMP 36.1; O2SAT 100
[2022-06-07] MEDS: Acetaminophen 325 MG TABLET 650 MG PO (08:00)
[2022-06-07] MEDS: Insulin Lispro 100 UNIT/ML 3 ML VIAL SUBCUT ×3 (08:00→11:57)
[2022-06-07] MEDS: Escitalopram Oxalate 10 MG TABLET PO (08:00)
[2022-06-07] MEDS: Fluticasone Propionate Nasal 16 GM SPRAY 2 SPRAY NOSTRIL-B (08:01)
[2022-06-07 08:21] LABS: Anion Gap 11 (12-20); Blood Urea Nitrogen 17 mg/dL (9-16); Calcium 8.2 mg/dL (8.4-10.2); Carbon Dioxide 27 mmol/L (22-29); Chloride 105 mmol/L (96-108); Creatinine Clr Calc Pharmacy 93.8; Estimated Glomerular Filt Rate > 60; Glucose Random 356 mg/dL (60-115); Magnesium 1.6 mg/dL (1.6-2.6); Phosphorus 3.9 mg/dL (2.7-4.5); Sodium 139 mmol/L (135-145)
--- NOTE | 2022-06-07 11:22 | MHC.CLN ---
F/U REVIEWED LABS. RANDOM GLUCOSE ELEVATED. RX FOR INSULIN IN PLACE. PER NURSING DOC, LIPIDS PAUSED LAST NIGHT. SEE DOC. CONTINUE TPN [id number]% AT MAX GOAL RATE 75ML/HR WITH 38ML/HR OF 20% LIPIDS. PROVIDES 2190 KCALS (30 KCALS/KG) TOTAL FROM FORMULA AND LIPIDS AND 90 G PROTEIN (1.2 G/KG). REPLETE LYTES NEEDED. RECEIVES FULL LIQUID DIET WITH USUALLY POOR INTAKE; UNABLE TO MEET NUTRITIONAL NEEDS VIA PO DUE TO ESOPHAGEAL MASS. FOLLOWING WITH TEAM.
[2022-06-07 11:32] LABS: Glucose, Whole Blood 183 mg/dL (60-115)
--- NOTE | 2022-06-07 13:38 | MHC.CM.PN ---
PATIENT TO RETURN TO [facility] TODAY FOR A 17:00 TRANSPORT TIME. [facility] TO TRANSPORT PATIENT, UNIT, RN, AND HCP LENA ([phone]) ALSO AWARE IMM 06/07 IN CHART
[2022-06-07] MEDS: Latanoprost 0.005 % Ophth Sol 2.5 ML DROPS 1 DROP EYE-RIGHT (16:23)
--- NOTE | 2022-06-07 16:45 | P.DS_ITS ---
DS: Providers Provider Date of Service: 06/07/22 Date of admission: 05/17/22 18:17 Date of discharge: 06/07/22 Primary care physician: NAVNEET CAPUTO Attending physician on admission: Mary Troncoso Consults: 05/17/22 18:22 Consult to Gastroenterology Routine Consulting Provider: Bina Zuniga Reason for consultation: Intractable nausea vomiting Has provider been notified: No 05/22/22 09:51 Consult to Hematology / Oncology Routine Consulting Provider: [facility] Oncology/Hematology Reason for consultation: esophageal mass with stricture Attending physician on discharge: Isaias Bucio Discharging clinician: Denise Reeder DS: Diagnosis Discharge Diagnosis (1) Esophageal mass: Status: Acute DS: Summary Hospital Course Hospital Course: HP as per admitting provider 66 year old gentleman with past medical history significant for paroxysmal atrial fibrillation, congestive heart failure, BPH, COPD, insulin-dependent type 2 diabetes mellitus, hypothyroidism, depression, ITP, blindness of left eye, gout history of upper GI bleed resident of [facility] presented to [facility] due to intractable nausea vomiting of several months duration, patient has been admitted in the past with similar symptoms in November 2021 subsequently underwent cholecystectomy in January 2022, as per patient he is unable to keep food down he vomits all kind of food except able to tolerate lollipops, he denies associated abdominal pain he, no fevers, no chills, no diarrhea he has lost 70 lb since November, he feels hungry, tries to eat but throws up every time he eats, workup in the ER showed positive urinalysis, hypokalemia otherwise normal renal function, chronic thrombocytopenia, abdomen and pelvic CT showed no evidence of metastatic disease in abdomen or pelvis, cirrhosis with portal hypertension with extensive perisplenic varices, some minimal tree-in-bud opacities in the right lung base and 6 mm pleural based left lower lobe nodule, patient also noted to have large stool ball in the rectum, small left inguinal hernia containing only fat patient is being followed closely by Gastroenterology as outpatient for ongoing chronic nausea and vomiting patient be admitted to medical floor due to persistent intractable nausea vomiting, hypokalemia and significant weight loss.? Patient also noted to have anterior lateral ST changes on EKG patient denies chest pain, noted to have normal troponin . Esophageal mass with severe esophageal obstruction s/p EGD on 05/18 showing obstructing GE junction mass, biopsy showed high-grade dysplasia op appt with [facility] for Cryo and possible EUS for staging + possible endoscopic resection [likely endoscopic submucoal dissection] + cryo which has to be done at [facility]. PICC line placed 05/30, started on TPN given inability to take po due to mass Will be discharged back to SNF with TPN MSSA UTI completed Abx hypokalemia, hypoMg, hypoCa repleted and resolved lateral ST changes no chest pain, negative trop, no further work up planned constipation DM2 continue home medication HTN continue carvedilol hold lisinopril + furosemide has been declining meds. bp stable paroxysmal AF continue carvedilol for RC no AC due to bleeding in past + ITP unspecified CHF not in acute exacerbation; hold furosemide as above mood disorder continue escitalopram if able to tolerate pills chronic normocytic anemia Hb stable ITP platelet count stable PAD hold pentoxifylline moderate protein-calorie malnutrition BMI 21.9, no oral intake due to mass Time spent discussing smoking cessation with patient: more than 10 minutes Status at Discharge Functional status at discharge: independent ambulation Overall status at discharge: patient is progressing back to baseline Time Spent with Patient Time attestation: Total time managing care of this patient today ____ minutes. Discharge coordination time: Greater than 30 minutes Quality: Safe Use of Opioids Does Pt have an Active Cancer Diagnosis on the Problem List?: No Quality: Stroke Does the patient have a stroke diagnosis?: No Physical Exam Vital Signs: Vital Signs: Last Vital Signs Temp 96.9 F 06/07/22 07:30 Pulse 83 06/07/22 07:30 Resp 18 06/07/22 07:30 BP 114/55 L 06/07/22 07:30 Pulse Ox 100 06/07/22 07:30 O2 Del Method Room Air 06/07/22 07:30 O2 Flow Rate 6 05/18/22 11:15 BMI result Body Mass Index 21.9 DS: Data Data Completed and Pending Completed studies during hospitalization [Text1]: Pending at discharge 05/18/22 10:54 Surgical [PTH] Routine Procedures Introduction of Mineral-based Topical Hemostatic Agent into Upper GI, Via Natur al or Artificial Opening Endoscopic, [employer] 6 (02/20/20) Resection of Gallbladder, Percutaneous Endoscopic Approach (02/01/22) Transfusion of Nonautologous Frozen Plasma into Peripheral Vein, Percutaneous Approach (02/01/22) Transfusion of Nonautologous Platelets into Peripheral Vein, Percutaneous Approach (02/01/22) Transfusion of Nonautologous Red Blood Cells into Peripheral Vein, Percutaneous Approach (02/20/20) Labs on day of discharge: Laboratory Results - last 24 hr 06/07/22 06/07/22 06/07/22 06:17 07:07 11:18 Sodium 139 Potassium 4.0 Chloride 105 Carbon Dioxide 27 Anion Gap 11 L BUN 17 H Creatinine 0.77 Estim Creat Clear Calc 93.8 Estimated GFR > 60 POC Glucose 338 H 183 H Random Glucose 356 H* Calcium 8.2 L Phosphorus 3.9 Magnesium 1.6 Discharge Plan Discharge Anticipated Discharge Date/Time: 06/06/22 07:32 Patient Disposition: er [facility] Discharge Diagnosis: Esophageal mass Referrals: [facility] GASTROENTEROL[facility] [Other] - 1 Week ([facility] GASTRO WILL BE CALLING FACILITY WHEN THEY HAVE AN OPENING FOR PATIENT. ) [facility] [Outside] - 1 Day ([facility], TPN) Discharge Medications: Continued latanoprost 0.005 % drops 1 drp ophthalmic-Right DAILY@1700 carvedilol 12.5 mg tablet 1 tab PO BID@0800,1700 atorvastatin 10 mg tablet 1 tab PO DAILY@1700 citalopram 10 mg tablet 1 tab PO DAILY Rx Instructions: TDD = 30 MG citalopram 20 mg tablet 1 tab PO DAILY Rx Instructions: TDD = 30 MG hydroxyzine HCl 25 mg tablet 25 mg PO DAILY omeprazole 40 mg Capsule,Delayed Release(Dr/Ec) 40 mg PO BID@0630,1630 Qty: 60 0RF insulin aspart U-100 [Novolog U-100 Insulin aspart] 100 unit/mL solution See Protocol subcut QIDACHS Protocol: Insulin Correction Scale Less than or equal to 110 ---- Give (units): 0 111 to 150 Give (units): 0 151 to 200 Give (units): 2 201 to 250 Give (units): 4 251 to 300 Give (units): 6 301 to 350 Give (units): 8 Greater than 350 Give (units): 10 Call MD if Blood Glucose > : 350 erythromycin 5 mg/gram (0.5 %) ointment 1 appl ophthalmic-Left MOTH@0900 calcium carbonate [Calcium Antacid] 200 mg calcium (500 mg) Tablet,Chewable 200 mg PO TID@0800,1200,1700 cholecalciferol (vitamin D3) 1,250 mcg (50,000 unit) Capsule 1,250 mcg PO QMONTH Rx Instructions: TAKES ON THE 16 OF EACH MONTH melatonin 5 mg Tablet 5 mg PO DAILY@1700 Levemir U-100 Insulin 100 unit/mL solution 10 unit subcut DAILY sucralfate 1 gram tablet 1 g PO QID magnesium oxide 400 mg magnesium Tablet 400 mg PO DAILY glucagon 1 mg recon soln 1 mg subcut Q20M PRN (Reason: Hypoglycemia) Rx Instructions: until target blood sugar attained fluticasone propionate 50 mcg/actuation spray,suspension 2 spray intranasal DAILY colchicine 0.6 mg tablet 0.3 mg PO Q OTHER DAY Qty: 15 0RF ondansetron HCl 4 mg tablet 4 mg PO Q8H PRN (Reason: nausea and vomiting) Qty: 20 0RF Discontinued furosemide 20 mg tablet 1 tab PO DAILY acetaminophen 500 mg Tablet 1,000 mg PO TID@0800,1300,1700 lisinopril 5 mg tablet 1 tab PO DAILY pentoxifylline 400 mg tablet extended release 400 mg PO BID Discharge Orders: Discharge Order (Routine); Ordered 06/07/22 Ordered By: Denise Reeder Diet: full liquid diet, tpn Activity on Discharge: As tolerated Stand Alone Forms: Patient Portal Discharge page Care Plan Goals: continue full liquid diet status with TPN due to esophageal mass and stricture. take oral medications as tolerated Health Concerns: Esophageal mass Plan of Treatment: Follow-up at [facility] for further testing of esophageal mass and esophageal stricture Continue TPN Assessment: As above. See discharge summary
== END 2022-06-07 17:14 | disposition skilled nursing facility (03) | DRG 392 ==
LOC: HO.ED 17:33 → HO.EDOVER 18:30 → HO.IMC 05-18 04:06 → HO.S3 06-01 18:14
PROVIDERS: Family Medicine; Internal Medicine; Nurse Practitioner Acute Care; Physician Assistant Medical; Radiology Diagnostic Radiology; Admitting Provider Hospitalist; Emergency Provider Emergency Medicine; PCP Emergency Medicine; Visit Provider Physician Assistant
PROC: 0DJ08ZZ Inspection of Upper Intestinal Tract, Via Natural or Artificial Opening Endoscopic (ICD-10-PCS; CPT 43235; principal; 2022-05-18 14:00)
DX: K22.2 Esophageal obstruction (principal); D69.3 Immune thrombocytopenic purpura; N39.0 Urinary tract infection, site not specified; E44.0 Moderate protein-calorie malnutrition; K21.9 Gastro-esophageal reflux disease without esophagitis; E03.9 Hypothyroidism, unspecified; E87.6 Hypokalemia; E83.51 Hypocalcemia; F32.9 Major depressive disorder, single episode, unspecified; Z20.822 Contact with and (suspected) exposure to COVID-19; I48.0 Paroxysmal atrial fibrillation; K59.00 Constipation, unspecified; E11.51 Type 2 diabetes mellitus with diabetic peripheral angiopathy without gangrene; D64.9 Anemia, unspecified; K74.60 Unspecified cirrhosis of liver; I11.0 Hypertensive heart disease with heart failure; I86.8 Varicose veins of other specified sites; K31.7 Polyp of stomach and duodenum; Z68.21 Body mass index [BMI] 21.0-21.9, adult; E83.42 Hypomagnesemia; M10.9 Gout, unspecified; L89.152 Pressure ulcer of sacral region, stage 2; B95.61 Methicillin susceptible Staphylococcus aureus infection as the cause of diseases classified elsewhere; I50.9 Heart failure, unspecified; E78.5 Hyperlipidemia, unspecified; Z86.16 Personal history of COVID-19; Z87.891 Personal history of nicotine dependence; Z79.4 Long term (current) use of insulin; Z79.51 Long term (current) use of inhaled steroids; Z79.899 Other long term (current) drug therapy; E86.0 Dehydration
CPT/HCPCS: 36415; 36573; 71260; 71555; 74018; 74177; 76000; 80048; 80053; 81001; 82040; 82140; 82947; 83605; 83690; 83735; 84100; 84439; 84443; 84478; 84484; 85025; 85027; 85610; 87040; 87086; 87088; 87186; 87635; 88305; 88341; 88342; 88360; 93005; 97161; 99285; A9585; C1751; J0696; J1642; J2405; J3475; Q9967

== ENCOUNTER 2022-06-15 13:15 | Inpatient (IN) | payer MEDICARE, MEDICAID, SELFPAY ==
[2022-06-15] VITALS (10 sets, daily range): BP systolic 79–102; BP diastolic 36–56; PULSE 85–109; RESP 12–20; TEMP 37.9–39.3; O2SAT 97–100; BMI 21.4
--- NOTE | ~2022-06-15 | IR_ITS ---
PROCEDURE: IR INSERTION OF PICC CLINICAL INFORMATION: Needs long-term antibiotics treatment. COMPARISON: None available. TECHNIQUE: Following explaining ultrasound-guided and fluoroscopy-guided PICC line placement procedure, benefits and risk, a written consent was obtained. Patient was placed supine on ultrasound stretcher and pulmonary ultrasound imaging was obtained through the right arm. Due to several PICC line placement of left thumb the right arm was selected. An optimal site was selected along the right arm and marked on the skin. The marked site was cleaned and draped in usual sterile manner. 1% lidocaine was injected puncture site. After applying a tourniquet a single wall needle was advanced under sterile ultrasound guidance and right basilic vein was punctured. After obtaining venous return a thin guidewire was placed into the SVC and needle withdrawn.. A 5 [place]uv[place] dilator with sheath was placed over the guidewire. Single-lumen PICC catheter was sized. The guidewire and dilator were removed and sized 5 [place] catheter was then inserted through the sheath into proximal SVC under fluoroscopy. The peel-away sheath was removed as the catheter was advanced. The catheter was flushed with saline. Sterile dressing applied postprocedure. A single image of was obtained. Patient tolerated procedure extremely well. All elements of maximal sterile barrier technique followed including use of cap, mask, sterile gown, sterile gloves, a sterile full body drape and hand hygiene. Also followed skin preparation with 2% chlorhexidine for cutaneous antisepsis, and sterile ultrasound preparation with sterile gel and probe cover when applicable. FINDINGS: On preliminary ultrasound imaging there is widely patent right cephalic and brachial veins. Approximately 32 cm single-lumen PICC catheter was placed with its tip in the proximal SVC/brachiocephalic venous junction. IR/IR cvc insert peripheral IMPRESSION: Successful ultrasound and fluoroscopy-guided placement of single lumen 5 [place]uvian PICC catheter 32 cm long. Fluoroscopy time: 1.5 minutes. Dose area product: 453 cGy/centimeters square.
--- NOTE | ~2022-06-15 | US_ITS ---
EXAMINATION: US VENOUS WITH DOPPLER UPPER EXTREMITY, RIGHT CLINICAL INFORMATION: Right upper extremity swelling. COMPARISON: None available. TECHNIQUE: Ultrasound of the upper extremity is performed using compression sonography and color and pulse Doppler flow with assessment of augmentation of flow. There is also imaging and Doppler assessment of the jugular and subclavian veins. Spectral analysis with color-flow imaging is performed. FINDINGS: Respiratory variation, normal compression, and augmented flow are noted throughout the upper extremity including the axillary, brachial, cubital, and radial and ulnar veins. There is normal flow in the internal jugular and subclavian veins. There is no visible deep or superficial thrombophlebitis. Mild to moderate subcutaneous edema is seen in the anterior medial forearm. Swelling is also seen posteriorly superficial to the olecranon. A subjacent anechoic fluid collection is also noted. US/US venous duplex UE RT IMPRESSION: 1. No evidence for deep venous thrombosis in the visualized veins of the right upper extremity. 2. Mild to moderate subcutaneous edema in the anterior medial forearm with subjacent anechoic fluid collection. Correlate with physical exam. If these findings persist or enlarge, short-term repeat targeted soft tissue ultrasound can be performed as clinically indicated to assess for change. Right forearm radiographs may also be of value.
--- NOTE | ~2022-06-15 | XR_ITS ---
EXAMINATION: XR ELBOW, RIGHT CLINICAL INFORMATION: Right elbow swelling. COMPARISON: None available. TECHNIQUE: AP, lateral, and oblique views of the right elbow. FINDINGS: Soft tissues are diffusely swollen around the elbow, most pronounced over the olecranon. Elbow joint effusion is noted. No acute fractures are identified on these images. Assessment is somewhat limited by the obliquity of the AP views if the patient cannot extend his elbow. Alignment appears appropriate. XR/XR elbow RT min 3V IMPRESSION: Soft tissue swelling at the elbow with an elbow joint effusion. No acute fractures are identified, though assessment is somewhat limited by the obliquity of the AP views. Findings could correspond to a crystalline or inflammatory arthropathy. Septic arthritis is also on the differential. Sensitivity for fracture is limited by the inability of the patient to fully extend the elbow.
--- NOTE | ~2022-06-15 | XR_ITS ---
EXAMINATION: XR CHEST CLINICAL INFORMATION: Weakness. COMPARISON: CT chest 05/21/2022, chest x-ray 02/20/2020 TECHNIQUE: Frontal portable view of the chest was obtained. 2:13 PM FINDINGS: Lungs are clear. No pulmonary vascular congestion. There is no pleural effusion. The heart size is normal. The cardiac and mediastinal contours are normal. There are calcifications of the thoracic aorta. There are multilevel degenerative changes of dorsal spine. XR/XR chest 1V IMPRESSION: Unremarkable examination.
--- NOTE | 2022-06-15 13:37 | ECG_ITS ---
Test Reason : WEAKNESS Blood Pressure : / mmHG Vent. Rate : 110 BPM Atrial Rate : 000 BPM P-R Int : 000 ms QRS Dur : 176 ms QT Int : 410 ms P-R-T Axes : 000 002 121 degrees QTc Int : 554 ms Wide QRS rhythm Left bundle branch block Abnormal ECG When compared with ECG of 17-MAY-2022 14:49, Wide QRS rhythm has replaced Sinus rhythm Vent. rate has increased BY 42 BPM Referred By: Uriah Tamayo Electronically Signed By:Rod Hernandez
--- NOTE | 2022-06-15 13:38 | ED_ITS ---
HPI - Weakness General Chief complaint: Weakness Stated complaint: FEVER Time Seen by Provider: 06/15/22 13:27 Source: patient Mode of arrival: ambulatory Limitations: no limitations History of Present Illness HPI Narrative: 67-year-old male with fairly significant recent past medical history. Patient had a 70 lb weight loss from November of last year to this month. Patient presented here and had a 3 week stay for an esophageal mass hypokalemia hypomagnesemia. Patient was was to follow-up and was tear or the esophageal mass patient was sent to a group home from our facility approximately 2 weeks ago. Patient was sent in today for weakness and hypotension. On arrival patient is known hypertensive. Patient has very limited historian he is unable to tell me why he is here he denies fever cough he states he has chronic nausea which was chronic during his previous visit likely due to his large esophageal mass he is unable to tell me much more than lollipops. MD Complaint: generalized weakness Related Data Home Medications Medication Instructions Recorded Confirmed carvedilol 12.5 mg tablet 1 tab PO BID@0800,1700 02/21/20 06/15/22 citalopram 10 mg tablet 1 tab PO DAILY 02/21/20 06/15/22 citalopram 20 mg tablet 1 tab PO DAILY 02/21/20 06/15/22 hydroxyzine HCl 25 mg tablet 25 mg PO DAILY 02/21/20 06/15/22 latanoprost 0.005 % eye drops 1 drp ophthalmic-Right DAILY@1700 02/21/20 06/15/22 calcium carbonate 200 mg calcium 200 mg PO TID@0800,1200,1700 12/07/21 06/15/22 (500 mg) chewable tablet (Calcium Antacid) cholecalciferol (vitamin D3) 1,250 1,250 mcg PO QMONTH 12/07/21 06/15/22 mcg (50,000 unit) capsule erythromycin 5 mg/gram (0.5 %) eye 1 appl ophthalmic-Left MOTH@0900 12/07/21 06/15/22 ointment insulin aspart U-100 100 unit/mL See Protocol subcut QIDACHS 12/07/21 06/15/22 subcutaneous solution (Novolog U-100 Insulin aspart) insulin detemir U-100 100 unit/mL 10 unit subcut DAILY 12/07/21 06/15/22 subcutaneous solution (Levemir U-100 Insulin) melatonin 5 mg tablet 5 mg PO DAILY@1700 12/07/21 06/15/22 sucralfate 1 gram tablet 1 g PO QID 12/20/21 06/15/22 glucagon 1 mg solution for 1 mg subcut Q20M PRN Hypoglycemia 03/28/22 06/15/22 injection fluticasone propionate 50 2 spray intranasal DAILY 04/24/22 06/15/22 mcg/actuation nasal spray,suspension albuterol sulfate 90 mcg/actuation 1 puff inhalation Q6H PRN Wheezing 06/15/22 06/15/22 aerosol inhaler amino acid 4.25 % in 10 % dextrose 75 ea IV DAILY@0400,1600 06/15/22 06/15/22 intravenous solution (Clinimix) Previous Rx's Medication Instructions Recorded omeprazole 40 mg capsule,delayed 40 mg PO BID@0630,1630 #60 caps 02/25/20 release colchicine 0.6 mg tablet 0.3 mg PO Q OTHER DAY #15 tabs 03/31/22 Allergies Allergy/AdvReac Type Severity Reaction Status Date / Time colchicine Allergy Unknown diarrhea Verified 05/17/22 13:56 PMFSH Past Medical History Medical History Atrial fibrillation Blindness of left eye BPH (benign prostatic hyperplasia) CHF (congestive heart failure) COPD (chronic obstructive pulmonary disease) Diabetes Diverticulosis Gallbladder sludge GERD (gastroesophageal reflux disease) History of COVID-19 Hypothyroid Major depression Osteoarthritis Resides in [facility] facility 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 Strain of left knee Thrombocytopenia Surgical History History of esophagogastroduodenoscopy (EGD) Hx of colonoscopy Hx of eye surgery Family History Family History Maternal Grandmother Diabetes Mother Diabetes Social History Social History Household Members: None Household Members Other:: group home Housing: Senior Care Housing Other:: [facility] care Do you presently have visiting nurse or other home services: Yes Alcohol intake: never Patient Tobacco Use Status: Former Tobacco user Quit Date: 10 yrs ago Tobacco use type: Cigarette Years Smoked: quit 10 years ago Smoked in Last 30 Days: No Use of substances other than those prescribed or required for medical reasons: No Advance Directives: Yes Advance Directives on File: Yes Advance Directives Date on File: 02/20/20 service: No Current occupational status: retired Physical Exam Vital Signs: Vital Signs: Last Vital Signs Temp 102.7 F H 06/15/22 13:51 Pulse 104 H 06/15/22 15:21 Resp 16 06/15/22 15:21 BP 102/53 L 06/15/22 15:21 Pulse Ox 100 06/15/22 13:26 O2 Del Method Room Air 06/15/22 15:21 BMI result Body Mass Index 21.4 Medications Administered Discontinued Medications Generic Name Dose Route Start Last Admin Trade Name Freq PRN Reason Stop Dose Admin Acetaminophen 650 mg 06/15/22 14:51 06/15/22 15:03 Acetaminophen 325 Mg Tablet PO 06/15/22 14:52 650 mg ONCE ONE Administration Sodium Chloride 1,000 mls @ 999 mls/hr 06/15/22 13:45 06/15/22 13:51 Ns IV 06/15/22 14:45 999 mls/hr .Q1H1M XI Administration Sodium Chloride 1,000 mls @ 999 mls/hr 06/15/22 15:00 06/15/22 14:58 Ns IV 06/15/22 16:00 999 mls/hr .Q1H1M XI Administration Magnesium Sulfate 2 gm in 50 mls @ 150 mls/hr 06/15/22 15:11 06/15/22 15:37 Magnesium Sulfate/H2o IV 06/15/22 15:30 150 mls/hr ONCE ONE Administration Ketorolac Tromethamine 15 mg 06/15/22 14:51 06/15/22 15:04 Ketorolac Tromethamine 15 Mg/Ml Vial IVPUSH 06/15/22 14:52 15 mg ONCE ONE Administration Medical Decision Making Medical Decision Making MDM Narrative: With his presentation I will get chest x-ray to take a look at his lungs as well as urinalysis and lab work I do think the patient needs straight caths he is currently in adult diaper. Patient has benign belly exam I do not think a CT scan is warranted I think a chest x-ray and lab work as patient has workup at this point. 1450 Patient has lowering blood pressure I will give another liter of fluid. He is refused a catheterized urine as well. I will treat his fever as well he was afebrile on arrival. 1511 Lab called with a magnesium level of 1.2 I did give 2 grams of magnesium I will give potassium chloride IV as well. Potassium is normal and was cancelled. Patient has concerns for UTI straight catheter did not produce urine but was cloudy and had signs of pus per nursing staff. I will start on rocephin. Lactic is also elevated I did give a third liter of fluid Differential Diagnosis Differential Diagnoses: The differential diagnosis associated with the pr esentation includes Concern for dehydration weakness electrolyte abnormalities patient did hypokalemia and hypomagnesemia his previous visit also concern for worsening cancer Admission/Observation Consideration of admission/observation: Escalation of care including admission/observation considered With lactic acidosis, dehydration and hypomagnsemia I will admit to medicine especially with a fever. Consult Healthcare Provider Management of the patient was discussed with: Hospitalist I spoke with Dr. Troncoso about the patient. Lab Data MDM Lab Attestation statement: I reviewed the patient's lab results. 06/15/22 14:58 06/15/22 14:45 Labs: Lab Results 06/15/22 06/15/22 06/15/22 Range/Units 14:45 14:46 14:51 WBC (4.8-10.8) X10*3/uL RBC (4.60-5.80) X10*6/uL Hgb (14.0-18.0) g/dl Hct (42.0-52.0) % MCV (80.0-98.0) fL MCH (27.0-33.0) pg MCHC (31.0-36.0) g/dl RDW (11.0-16.0) % Plt Count (160-400) X10*3/uL MPV Immature Gran % (Auto) (0.0-0.4) % Neut % (Auto) (45-73) % Lymph % (Auto) (20-40) % [place] % (Auto) (2-11) % Eos % (Auto) (0-4) % Baso % (Auto) (0-2) % Lymph # (Auto) (1.2-4.9) X10*3/uL [place] # (Auto) (0.1-1.2) X10*3/uL Eos # (Auto) (0.0-0.4) X10*3/uL Baso # (Auto) (0.0-0.2) X10*3/uL Abs Immat Gran (auto) (0.00-0.03) X10*3/uL Absolute Neuts (auto) (2.0-8.3) x10*3/uL Absolute Nucleated RBC (0.0-0.012) X10*3/uL Nucleated RBC % (auto) (0.0-0.2) /100WBC Sodium 135 (135-145) mmol/L Potassium 3.5 (3.3-5.1) mmol/L Chloride 107 (96-108) mmol/L Carbon Dioxide 19 L (22-29) mmol/L Anion Gap 13 (12-20) BUN 22 H (9-16) mg/dL Creatinine 0.73 (0.5-1.4) mg/dL Estim Creat Clear Calc 96.8 Estimated GFR > 60 Random Glucose 228 H (60-115) mg/dL Lactic Acid 2.8 H* (0.5-2.0) mmol/L Calcium 7.4 L D (8.4-10.2) mg/dL Magnesium 1.3 L* (1.6-2.6) mg/dL Total Bilirubin 2.7 H (0.0-1.0) mg/dL Direct Bilirubin 1.1 H (0.0-0.5) mg/dL AST 63 H (5-37) U/L ALT 33 (0-40) U/L Alkaline Phosphatase 69 (39-117) U/L Troponin I High Sens 22.5 D (<3.5-35.0) ng/L Total Protein 5.7 L (6.5-8.0) g/dL Albumin 2.9 L (3.5-5.0) g/dL Lipase 18 (8-78) U/L 06/15/22 Range/Units 14:58 WBC 6.7 (4.8-10.8) X10*3/uL RBC 3.09 L D (4.60-5.80) X10*6/uL Hgb 9.4 L (14.0-18.0) g/dl Hct 27.7 L D (42.0-52.0) % MCV 89.6 (80.0-98.0) fL MCH 30.4 (27.0-33.0) pg MCHC 33.9 (31.0-36.0) g/dl RDW 17.0 H (11.0-16.0) % Plt Count 25 L D (160-400) X10*3/uL MPV Not Reportable Immature Gran % (Auto) 0.4 (0.0-0.4) % Neut % (Auto) 82.4 H (45-73) % Lymph % (Auto) 7.0 L (20-40) % [place] % (Auto) 9.8 (2-11) % Eos % (Auto) 0.0 (0-4) % Baso % (Auto) 0.4 (0-2) % Lymph # (Auto) 0.5 L (1.2-4.9) X10*3/uL [place] # (Auto) 0.7 (0.1-1.2) X10*3/uL Eos # (Auto) 0.0 (0.0-0.4) X10*3/uL Baso # (Auto) 0.0 (0.0-0.2) X10*3/uL Abs Immat Gran (auto) 0.03 (0.00-0.03) X10*3/uL Absolute Neuts (auto) 5.5 (2.0-8.3) x10*3/uL Absolute Nucleated RBC 0.000 (0.0-0.012) X10*3/uL Nucleated RBC % (auto) 0.0 (0.0-0.2) /100WBC Sodium (135-145) mmol/L Potassium (3.3-5.1) mmol/L Chloride (96-108) mmol/L Carbon Dioxide (22-29) mmol/L Anion Gap (12-20) BUN (9-16) mg/dL Creatinine (0.5-1.4) mg/dL Estim Creat Clear Calc Estimated GFR Random Glucose (60-115) mg/dL Lactic Acid (0.5-2.0) mmol/L Calcium (8.4-10.2) mg/dL Magnesium (1.6-2.6) mg/dL Total Bilirubin (0.0-1.0) mg/dL Direct Bilirubin (0.0-0.5) mg/dL AST (5-37) U/L ALT (0-40) U/L Alkaline Phosphatase (39-117) U/L Troponin I High Sens (<3.5-35.0) ng/L Total Protein (6.5-8.0) g/dL Albumin (3.5-5.0) g/dL Lipase (8-78) U/L Independent Interpretation I performed an independent interpretation of an: EKG and Plain X-Ray Interpretation: Rate 110Tachycardic with LBBB with no signs of ischemia Radiology Impression Discussion of test interpretation with radiology: I have reviewed the radiologist's reading. Tests considered The following testing was considered but not selected: Ct head, chest abdomen or pelvis. He does not appear allered Chronic Conditions Patient?s care impacted by: Cancer Patient with 70 lb weight loss with chronic nausea vomiting with past 6 months a new diagnosis of esophageal mass still pending surgery and resection. Critical Care Time Critical Care Time Critical Care Time: Yes Total Critical Care Time: 50 Attestation: Concern for acute dehydration hypotension and fever patient given Rocephin empirically for UTI were unable to get any urine as the patient patient is very dehydrated patient required multiple re-evaluations Discharge Plan Discharge Clinical Impression: Weakness, Acute dehydration, Hypomagnesemia, Acute hypokalemia, Urinary tract infection, Hypotension, Acidosis, lactic Patient Disposition: Admitted As Inpatient
[2022-06-15] MEDS: 0.9 % Sodium Chloride 1,000 ML 999 ML IV ×4 (13:51→18:12)
--- NOTE | 2022-06-15 14:40 | PC.NURSE ---
Pt lying in hospital bed, airway open and patent, no obvious signs of distress, no difficulty breathing. A&ox4, skin pale and slightly jaundice, pale, warm, and dry. Heart sounds normal, sinus tachycardia on the monitor. Bowel sounds present and active all moe. Pt denies pain. Straight cath attempted, unable to advance due to enlarged prostate. When catheter removed, RN noticed that pt had milky discharge. Pt also has a large esophogeal mass, pt should not be taking anything per mouth.
[2022-06-15] MEDS: Acetaminophen 325 MG TABLET 650 MG PO (15:03)
[2022-06-15] MEDS: Ketorolac Tromethamine 15 MG/ML VIAL IVPUSH (15:04)
[2022-06-15 15:13] LABS: Alanine Aminotransferase 33 U/L (0-40); Albumin Level 2.9 g/dL (3.5-5.0); Alkaline Phosphatase 69 U/L (39-117); Anion Gap 13 (12-20); Aspartate Amino Transferase 63 U/L (5-37); Bilirubin Direct 1.1 mg/dL (0.0-0.5); Bilirubin Total 2.7 mg/dL (0.0-1.0); Blood Urea Nitrogen 22 mg/dL (9-16); Calcium 7.4 mg/dL (8.4-10.2); Carbon Dioxide 19 mmol/L (22-29); Chloride 107 mmol/L (96-108); Creatinine Clr Calc Pharmacy 96.8; Estimated Glomerular Filt Rate > 60; Glucose Random 228 mg/dL (60-115); Lipase 18 U/L (8-78); Magnesium 1.3 mg/dL (1.6-2.6); Potassium 3.5 mmol/L (3.3-5.1); Sodium 135 mmol/L (135-145); Total Protein 5.7 g/dL (6.5-8.0)
[2022-06-15 15:14] LABS: Basophils Percent Auto 0.4 % (0-2); Hematocrit 27.7 % (42.0-52.0); Hemoglobin 9.4 g/dl (14.0-18.0); Imm Gran Abs Auto 0.03 X10*3/uL (0.00-0.03); Imm Gran Pct Auto 0.4 % (0.0-0.4); Lymphocytes Absolute Auto 0.5 X10*3/uL (1.2-4.9); Mean Corpuscular HGB Conc 33.9 g/dl (31.0-36.0); Mean Corpuscular Hemoglobin 30.4 pg (27.0-33.0); Mean Corpuscular Volume 89.6 fL (80.0-98.0); Monocytes Absolute Auto 0.7 X10*3/uL (0.1-1.2); Monocytes Percent Auto 9.8 % (2-11); Neutrophils Absolute Auto 5.5 x10*3/uL (2.0-8.3); Neutrophils Percent Auto 82.4 % (45-73); Red Blood Count 3.09 X10*6/uL (4.60-5.80); White Blood Count 6.7 X10*3/uL (4.8-10.8)
[2022-06-15 15:15] LABS: Platelet Count 25 X10*3/uL (160-400)
[2022-06-15 15:16] LABS: MANUAL DIFF FLAG NO
--- NOTE | 2022-06-15 15:19 | PHA.MEDREC ---
Pharmacy Consult ? Medication Reconciliation Pharmacy has completed the medication reconciliation. List faxed from [facility] in [place]
[2022-06-15] MEDS: Magnesium Sulfate/H2O 2 GM/50 ML PIGGYBACK IV (15:37)
[2022-06-15 16:00] LABS: Lactic Acid 2.8 mmol/L (0.5-2.0)
[2022-06-15 16:05] LABS: Troponin-I High Sensitivity 22.5 ng/L (<3.5-35.0)
[2022-06-15 16:51] LABS: Reflex Lactate? Lactic Acid Added
[2022-06-15] MEDS: cefTRIAXone sodium 1 GM in 0.9 % Sodium Chloride 50 ML IV (17:01)
--- NOTE | 2022-06-15 17:15 | PM.IMHP ---
History of Present Illness Date of Service: 06/15/22 Attending physician on admission: Mary Troncoso Chief Complaint: low blood pressure this is a 67-year-old male with recently diagnosed obstructing GE junction mass who was recently discharged from the hospital on TPN. He was sent to the emergency department due to low blood pressure. On arrival to the emergency department he was noted to have fever of 102.7 and was tachycardic as well as hypotensive with a blood pressure of 90/45. He was given IV fluid and ceftriaxone. Straight catheterization was Attempted did but unable to be obtained as patient was unable to tolerate. Chest x-ray unremarkable. He was treated for UTI on last admission and therefore presumed source of infection is recurrent UTI. CXR is unremarkable and He denies any cough or shortness of breath. He also denies any abdominal pain vomiting or diarrhea. blood pressure dropped into the 80s, despite this he was awake, alert and able to provide an accurate medical history. He has been unable to tolerate any po medication and has been not taking any po meds. Review of Systems Review of Systems: Yes all other systems are reviewed and are negative Constitutional: Constitutional: Denies chills and Denies fever(s) ENT: Denies dizziness Cardiovascular: Cardiovascular: Denies chest pain, Denies palpitations and Denies dyspnea Respiratory: Respiratory: Denies cough and Denies dyspnea Gastrointestinal: Gastrointestinal: Denies abdominal pain, Denies diarrhea, Denies nausea and Denies vomiting Neurologic: Denies dizziness Endocrine: Endocrine: Denies palpitations [facility] Medical History Atrial fibrillation Blindness of left eye BPH (benign prostatic hyperplasia) CHF (congestive heart failure) Cirrhosis COPD (chronic obstructive pulmonary disease) Diabetes Diverticulosis Gallbladder sludge GERD (gastroesophageal reflux disease) History of COVID-19 Hypothyroid Major depression Osteoarthritis Resides in [facility] facility 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 Strain of left knee Thrombocytopenia Family History Maternal Grandmother Diabetes Mother Diabetes Surgical History History of esophagogastroduodenoscopy (EGD) Hx of colonoscopy Hx of eye surgery Social History Household Members: None Household Members Other:: correction Housing: Long Term Housing Other:: [facility] Do you presently have visiting nurse or other home services: Yes Alcohol intake: never Patient Tobacco Use Status: Former Tobacco user Quit Date: 10 yrs ago Tobacco use type: Cigarette Years Smoked: quit 10 years ago Smoked in Last 30 Days: No Use of substances other than those prescribed or required for medical reasons: No Advance Directives: Yes Advance Directives on File: Yes Advance Directives Date on File: 02/20/20 service: No Current occupational status: retired Meds Allergies Allergy/AdvReac Type Severity Reaction Status Date / Time colchicine Allergy Unknown diarrhea Verified 05/17/22 13:56 Active Medications: Current Medications Acetaminophen (Acetaminophen Supp 650 Mg Supp.Rect) 650 mg GA Q6H PRN PRN Reason: Pain, Mild (Pain Scale 1-3) Docusate Sodium (Docusate Sodium 100 Mg Capsule) 100 mg PO DAILY PRN PRN Reason: Constipation Sodium Chloride (Ns) 1,000 mls @ 999 mls/hr IV .Q1H1M [facility] Stop: 06/15/22 18:00 Last Admin: 06/15/22 17:06 Dose: 999 mls/hr Sodium Chloride (Ns) 1,000 mls @ 125 mls/hr IVCONT .Q8H XI Albumin Human (Kedbumin 25 %) 100 mls @ 100 mls/hr IV Q6H [facility] Stop: 06/16/22 12:14 Ceftriaxone Sodium 1 gm/ (Sodium Chloride) 50 mls @ 100 mls/hr IV Q24H XI Ondansetron HCl (Ondansetron Hcl 4 Mg/2 Ml Vial) 4 mg IVPUSH Q8H PRN PRN Reason: Nausea and Vomiting Pharmacy Consult (Consult Rx Perform Med Rec) 1 each MISCELLANE ONCE PRN PRN Reason: Consult order Sodium Chloride (0.9 % Sodium Chloride Flush 3 Ml Syringe) 3 ml IVFLUSH QSHIFT [facility] Home Medications Medication Instructions Recorded Confirmed Last Taken Type carvedilol 12.5 mg tablet 1 tab PO BID@0800,1700 02/21/20 06/15/22 05/17/22 History citalopram 10 mg tablet 1 tab PO DAILY 02/21/20 06/15/22 05/17/22 History citalopram 20 mg tablet 1 tab PO DAILY 02/21/20 06/15/22 05/17/22 History hydroxyzine HCl 25 mg tablet 25 mg PO DAILY 02/21/20 06/15/22 05/16/22 History latanoprost 0.005 % eye drops 1 drp ophthalmic-Right DAILY@1700 02/21/20 06/15/22 05/15/22 History calcium carbonate 200 mg calcium 200 mg PO TID@0800,1200,1700 12/07/21 06/15/22 05/17/22 History (500 mg) chewable tablet (Calcium Antacid) cholecalciferol (vitamin D3) 1,250 1,250 mcg PO QMONTH 12/07/21 06/15/22 05/04/22 History mcg (50,000 unit) capsule erythromycin 5 mg/gram (0.5 %) eye 1 appl ophthalmic-Left MOTH@0900 12/07/21 06/15/22 05/15/22 History ointment insulin aspart U-100 100 unit/mL See Protocol subcut QIDACHS 12/07/21 06/15/22 Unknown History subcutaneous solution (Novolog U-100 Insulin aspart) insulin detemir U-100 100 unit/mL 10 unit subcut DAILY 12/07/21 06/15/22 05/16/22 History subcutaneous solution (Levemir U-100 Insulin) melatonin 5 mg tablet 5 mg PO DAILY@1700 12/07/21 06/15/22 05/15/22 History sucralfate 1 gram tablet 1 g PO QID 12/20/21 06/15/22 05/17/22 History glucagon 1 mg solution for 1 mg subcut Q20M PRN Hypoglycemia 03/28/22 06/15/22 Unknown History injection fluticasone propionate 50 2 spray intranasal DAILY 04/24/22 06/15/22 05/17/22 History mcg/actuation nasal spray,suspension albuterol sulfate 90 mcg/actuation 1 puff inhalation Q6H PRN Wheezing 06/15/22 06/15/22 Unknown History aerosol inhaler amino acid 4.25 % in 10 % dextrose 75 ea IV DAILY@0400,1600 06/15/22 06/15/22 06/14/22 History intravenous solution (Clinimix) Physical Exam Vital Signs and Narrative: Vital Signs: Last Vital Signs Temp 102.7 F H 06/15/22 13:51 Pulse 91 06/15/22 16:51 Resp 19 06/15/22 16:51 BP 85/36 L 06/15/22 16:51 Pulse Ox 99 06/15/22 16:51 O2 Del Method Room Air 06/15/22 16:51 BMI result Body Mass Index 21.4 Const: General: cooperative, comfortable, alert and awake Nutritional Appearance: thin Orientation/consciousness: patient oriented x3 HEENT: Other: dry mucous membranes Eyes: Other: left eye blind Resp: Effort & Inspection: normal respiratory effort and able to speak in complete sentences Auscultation: clear to auscultation bilaterally Cardio: Rate: regular rate GI: Inspection: No distended Palpation (GI): Soft to palpation and nontender Neuro: General: patient oriented x3 and CN's II-XI intact bilaterally Extrem: Other: Able to move all 4 extremities spontaneously General: Yes no pedal edema Results Labs 06/15/22 14:58 06/15/22 14:45 Labs: Laboratory Results - last 24 hr 06/15/22 06/15/22 06/15/22 14:45 14:46 14:51 MCV MCH MCHC RDW Plt Count MPV Immature Gran % (Auto) Neut % (Auto) Lymph % (Auto) [place] % (Auto) Eos % (Auto) Baso % (Auto) Lymph # (Auto) [place] # (Auto) Eos # (Auto) Baso # (Auto) Abs Immat Gran (auto) Absolute Neuts (auto) Absolute Nucleated RBC Nucleated RBC % (auto) Anion Gap 13 Estim Creat Clear Calc 96.8 Estimated GFR > 60 Random Glucose 228 H Lactic Acid 2.8 H* Calcium 7.4 L D Magnesium 1.3 L* Total Bilirubin 2.7 H Direct Bilirubin 1.1 H AST 63 H ALT 33 Alkaline Phosphatase 69 Troponin I High Sens 22.5 D Total Protein 5.7 L Albumin 2.9 L Lipase 18 06/15/22 14:58 MCV 89.6 MCH 30.4 MCHC 33.9 RDW 17.0 H Plt Count 25 L D MPV Not Reportable Immature Gran % (Auto) 0.4 Neut % (Auto) 82.4 H Lymph % (Auto) 7.0 L [place] % (Auto) 9.8 Eos % (Auto) 0.0 Baso % (Auto) 0.4 Lymph # (Auto) 0.5 L [place] # (Auto) 0.7 Eos # (Auto) 0.0 Baso # (Auto) 0.0 Abs Immat Gran (auto) 0.03 Absolute Neuts (auto) 5.5 Absolute Nucleated RBC 0.000 Nucleated RBC % (auto) 0.0 Anion Gap Estim Creat Clear Calc Estimated GFR Random Glucose Lactic Acid Calcium Magnesium Total Bilirubin Direct Bilirubin AST ALT Alkaline Phosphatase Troponin I High Sens Total Protein Albumin Lipase Imaging Radiologist's Impressions: Impressions Chest X-Ray 06/15/22 14:18 IMPRESSION: Unremarkable examination. Assessment and Plan (1) Hypomagnesemia: Status: Acute (2) Hypotension: Status: Acute (3) Acidosis, lactic: Status: Acute Plan this is a 67-year-old male with history of diabetes, recently diagnosed with obstructing GE junction mass with plans for outpatient follow-up and surgical intervention at [facility] who returns with decreased p.o. intake, low blood pressure found to have fever and probable recurrent UTI SIRS meets SIRS criteria with fever, tachycardia presumed to have recurrent urinary tract infection although urinalysis unable to be obtained at this time cxr negative, no respiratory symptoms, no abdominal symptoms lactic acid 2.8 BP low - most likely r/t dehydration from decreased PO intake in setting of GE junction mass has received 3L bolus, total greater then 30cc/kg bolus follow BP closely will treat for presumed UTI with IV ceftraixone ID consult follow blood cultures acute on chronic thrombocytopenia has h/o ITP plt 25, lower then baseline. likely in setting of acute infection no evidence of bleeding follow CBC hypomagnesemia likely r/t to decreased po intake replace and follow levels GE junction mass continue TPN - LUE PICC line in place nutrition consult monitor electrolytes full liquid diet as tolerated DM decreased PO intake follow POCs, can add SSI if POCs elevated chronic normocytic anemia follow CBC paraoxysmal AF hold carvedilol for hypotension not on AC due to thrombocytopenia Moderate protein calorie malnutrition BMI 21.4 nutrition consult TPN HTN hold bp meds for hypotension dvt ppx - mechanical devices due to thrombocytopenia code status - MOLST confirm DNR/DNI attending - Dr Troncoso attempted to call [facility], no answer patient will likely require 2 midnight stay in the hospital for management SIRS, probable UTI, hypotension requiring IV fluids and close monitoring Time Spent With Patient Time: Total time managing care of this patient today ____ minutes. Quality Stroke Does the patient have a stroke diagnosis?: No VTE Prior VTE?: No VTE Risk Level:: Medical - moderate - high VTE Device Contraindication: N/A - Device Ordered VTE Drug Contraindication: Treatment Not Indicated
[2022-06-15 17:19] LABS: COVID-19 Test Negative (Negative); IDNOW Serial# 08D9AD1C
[2022-06-15] MEDS: Albumin Human 25 % 100 ML IV ×2 (18:07→22:47)
[2022-06-15 18:37] LABS: ~Lactic Acid-LAB USE ONLY 1.2 mmol/L (0.5-2.0)
[2022-06-15] MEDS: 0.9 % Sodium Chloride 1,000 ML 125 ML IVCONT (19:29)
[2022-06-15 20:06] LABS: Appearance Urine Cloudy; Color Urine Orange; PH 5.5 (5.0-9.0)
[2022-06-15 20:07] LABS: Glucose Urine UA Negative (Negative); Leukocyte Esterase Urine Large (3+) (Negative); Nitrite Urine Positive (Negative); Specific Gravity - Urine 1.015 (1.005-1.025); UMIC TRIGGER UACC YES; Urine Blood Large (3+) (Negative); Urine Ketones Negative (Negative); Urine Protein 30 (1+) mg/dL (Neg-Trace)
[2022-06-15 20:26] LABS: Bacteria Urine 1+ (None Seen); Hyaline Casts Urine 0-2 /LPF (0-2); RBC Urine >20 /HPF (0-2); Squamous Epithelial Cell Urine 0-2 /HPF (0-2); UACC Culture Trigger YES
[2022-06-15 21:09] LABS: Glucose, Whole Blood 138 mg/dL (60-115)
--- NOTE | 2022-06-15 21:15 | PC.NURSE ---
pt declined sucralfate, no insulin coverage needed, pt reports feeling much better he is sleepy but denies pain, remains hypotensive other vss.
[2022-06-16] MEDS: 0.9 % Sodium Chloride Flush 3 ML SYRINGE IVFLUSH ×2 (00:23→07:11)
[2022-06-16] MEDS: 0.9 % Sodium Chloride 1,000 ML 125 ML IVCONT ×3 (02:46→19:57)
[2022-06-16] MEDS: Albumin Human 25 % 100 ML IV ×2 (05:04→12:02)
--- NOTE | 2022-06-16 05:27 | PC.NURSE ---
Pt repositionedin bed and BP improved to 103/56
[2022-06-16 05:32] LABS: Hematocrit 24.1 % (42.0-52.0); Hemoglobin 8.2 g/dl (14.0-18.0); Mean Corpuscular Hemoglobin 30.4 pg (27.0-33.0); Mean Corpuscular Volume 89.3 fL (80.0-98.0); Red Cell Distribution Width 17.2 % (11.0-16.0)
[2022-06-16 05:36] LABS: Platelet Count 20 X10*3/uL (160-400)
[2022-06-16 05:43] LABS: Alanine Aminotransferase 31 U/L (0-40); Albumin Level 2.8 g/dL (3.5-5.0); Alkaline Phosphatase 48 U/L (39-117); Anion Gap 10 (12-20); Aspartate Amino Transferase 55 U/L (5-37); Bilirubin Direct 1.4 mg/dL (0.0-0.5); Bilirubin Total 2.8 mg/dL (0.0-1.0); Blood Urea Nitrogen 16 mg/dL (9-16); Carbon Dioxide 19 mmol/L (22-29); Chloride 116 mmol/L (96-108); Estimated Glomerular Filt Rate > 60; Glucose Random 157 mg/dL (60-115); Magnesium 1.5 mg/dL (1.6-2.6); Potassium 2.9 mmol/L (3.3-5.1); Sodium 142 mmol/L (135-145); Total Protein 4.8 g/dL (6.5-8.0)
--- NOTE | 2022-06-16 06:27 | PC.NURSE ---
Pt has been asleep. Given a towel to cover his eyes as we are out of eye masks. Pt refused his morning prilosec, stating he never takes it in the morning. IV's are patent and secured.
[2022-06-16 07:17] VITALS: BP 112/61; PULSE 91; RESP 15; O2SAT 99
[2022-06-16 08:00] VITALS: BP 135/61; PULSE 90; RESP 20; TEMP 36.3; O2SAT 100
[2022-06-16 08:12] LABS: Glucose, Whole Blood 142 mg/dL (60-115)
--- NOTE | 2022-06-16 08:14 | PC.NURSE ---
First attempt to give report to floor [phone]
[2022-06-16] MEDS: Sucralfate 1 GM TABLET PO (08:31)
--- NOTE | 2022-06-16 08:48 | PC.NURSE ---
Pt cleaned and changed,accepting to medication.
--- NOTE | 2022-06-16 10:12 | MHC.CM.PN ---
Patient is documented to be a limited Historian; CM left a detailed message for HCP/Jone @ listed phone # and original IMM will be mailed certified letter to Jone and a copy to be placed on the chart. Patient appears to be from [facility]) and returning there is the tentative plan.CM has initiated and will follow for dc planning.
[2022-06-16 10:18] VITALS: BMI 21.4
--- NOTE | 2022-06-16 10:32 | MHC.CLN ---
RE: CONSULT PT IS MODERATELY MALNOURISHED PT WITH 28% SIGNIFICANT WT LOSS WITH MILDLY DEPLETED SUBCUTANEOUS FAT AND MUSCLE MASS WITH CHRONIC POOR PO INTAKE WITH N/V R/T ESOPHAGEAL MASS PT IS RECEIVING A F/L DIET PICC LINE IN PLACE; RECOMMEND D15AA5 AT 35ML/HR TO PROVIDE 596KCALS, 42G PROTEIN DISCUSSED WITH PHARMACY REPLETE LYTES NEEDED SEE ALSO FULL CLINICAL NUTRITION ASSESSMENT
--- NOTE | 2022-06-16 10:38 | PC.NURSE ---
pt up to med/tele at 10:00. A& O x4 vitals stable ; 97.4, 90, 20, 135/61 RA. pt educated on high fall risk precautions, verbalize understanding and still refuses : red bracelet, red socks, bed alarm, chair alarm, camera. call nelson within reach as well as belongings. pt als has a triple lumen PICC to left upper inner arm.
[2022-06-16 11:41] LABS: Glucose, Whole Blood 105 mg/dL (60-115)
[2022-06-16] MEDS: Potassium Chloride/H20 10 MEQ/100 ML PIGGYBACK 100 MEQ IV ×4 (12:03→16:33)
[2022-06-16] MEDS: Acetaminophen 325 MG TABLET 650 MG PO ×2 (12:51→19:57)
--- NOTE | 2022-06-16 13:30 | HO.PM.IMPN ---
Subjective Subjective Date of Service: 06/16/22 Interval History: seen and examined this morning follow-up for UTI, dehydration feeling well this am, no dizziness, abdominal pain, diarrhea, cough, shortness of breath Review of Systems Review of Systems: Yes all other systems are reviewed and are negative Constitutional Constitutional: Denies chills and Denies fever(s) ENT Ears, Nose, Mouth, and Throat: Denies dizziness Cardiovascular Cardiovascular: Denies chest pain, Denies palpitations and Denies dyspnea Respiratory Respiratory: Denies cough and Denies dyspnea Gastrointestinal Gastrointestinal: Denies abdominal pain, Denies diarrhea, Denies nausea and Denies vomiting Neurologic Neurologic: Denies dizziness Endocrine Endocrine: Denies palpitations Physical Exam Vital Signs: Vital Signs: Last Vital Signs Temp 97.4 F 06/16/22 08:00 Pulse 90 06/16/22 08:00 Resp 20 06/16/22 08:00 BP 135/61 06/16/22 08:00 Pulse Ox 100 06/16/22 08:00 O2 Del Method Room Air 06/16/22 08:00 BMI result Body Mass Index 21.4 Const: General: cooperative, comfortable, alert and awake Nutritional Appearance: thin Orientation/consciousness: patient oriented x3 HEENT: Other: dry mucous membranes Eyes: Other: left eye blind Resp: Effort & Inspection: normal respiratory effort and able to speak in complete sentences Auscultation: clear to auscultation bilaterally Cardio: Rate: regular rate GI: Inspection: No distended Palpation (GI): Soft to palpation and nontender Neuro: General: patient oriented x3 and CN's II-XI intact bilaterally Extrem: Other: Able to move all 4 extremities spontaneously General: Yes no pedal edema Objective Data Active Medications Acetaminophen (Acetaminophen 325 Mg Tablet) 650 mg PO Q6H PRN PRN Reason: pain, fever Last Admin: 06/16/22 12:51 Dose: 650 mg Documented By: MANDY Albuterol Sulfate (Albuterol Sulfate 90 Mcg 8 Gm Inhaler) 1 puff INHALE Q6H PRN PRN Reason: Wheezing Docusate Sodium (Docusate Sodium 100 Mg Capsule) 100 mg PO DAILY PRN PRN Reason: Constipation Erythromycin (Erythromycin Base 0.5% Oph Oin 1 Gm Tube) 1 cm EYE-LEFT MOTH@0900 XI Fluticasone Propionate (Fluticasone Propionate Nasal 16 Gm [place]) 2 spray NOSTRIL-B DAILY [facility] Last Admin: 06/16/22 08:42 Dose: Not Given Documented By: ABAD Non-Admin Reason: Med Not Available Glucose (Glucose Gel 15 Gm Gel..Gram.) 15 gm PO Q15M PRN; Protocol PRN Reason: per Hypoglycemia Standing Ord. Sodium Chloride (Ns) 1,000 mls @ 125 mls/hr IVCONT .Q8H [facility] Last Admin: 06/16/22 10:35 Dose: 125 mls/hr Documented By: MANDY Ceftriaxone Sodium 1 gm/ (Sodium Chloride) 50 mls @ 100 mls/hr IV Q24H [facility] Dextrose (D10) 250 mls @ 750 mls/hr IV Q15M PRN; Protocol PRN Reason: per Hypoglycemia Standing Ord. Multivitamins 10 ml/ Trace Metals 1 ml/ Amino Acids/Electrolytes 840 mls @ 35 mls/hr IV DAILY@1800 [facility] Stop: 06/17/22 17:59 Potassium Chloride (Potassium Chloride/H20) 10 meq in 100 mls @ 100 mls/hr IV Q1H [facility] Stop: 06/16/22 15:44 Last Admin: 06/16/22 12:03 Dose: 100 mls/hr Documented By: MANDY Insulin Human Lispro (Insulin Lispro 100 Unit/Ml 3 Ml Vial) 0 unit SUBCUT QIDACHS [facility]; Protocol Last Admin: 06/16/22 11:39 Dose: Not Given Documented By: MANDY Non-Admin Reason: No Insulin Coverage Melatonin (Melatonin 3 Mg Tablet) 6 mg PO DAILY@1700 [facility] Omeprazole (Omeprazole 40 Mg Capsule.) 40 mg PO BID@0630,1630 [facility] Last Admin: 06/16/22 06:27 Dose: Not Given Documented By: HAMILTON Non-Admin Reason: Patient Refused Ondansetron HCl (Ondansetron Hcl 4 Mg/2 Ml Vial) 4 mg IVPUSH Q8H PRN PRN Reason: Nausea and Vomiting Pharmacy Consult (Consult Rx Perform Med Rec) 1 each MISCELLANE ONCE PRN PRN Reason: Consult order Sodium Chloride (0.9 % Sodium Chloride Flush 3 Ml Syringe) 3 ml IVFLUSH QSHIFT [facility] Last Admin: 06/16/22 07:11 Dose: 3 ml Documented By: ABAD Sodium Chloride (0.9 % Sodium Chloride Flush 10 Ml Syringe) 5 ml IVFLUSH TID XI Sucralfate (Sucralfate 1 Gm Tablet) 1 gm PO QID [facility] Last Admin: 06/16/22 12:56 Dose: Not Given Documented By: MANDY Non-Admin Reason: Patient Refused Labs 06/16/22 05:06 06/16/22 05:06 Labs: Laboratory Results - last 24 hr 06/15/22 06/15/22 06/15/22 14:45 14:46 14:51 MCV MCH MCHC RDW Plt Count MPV Immature Gran % (Auto) Neut % (Auto) Lymph % (Auto) [place] % (Auto) Eos % (Auto) Baso % (Auto) Lymph # (Auto) [place] # (Auto) Eos # (Auto) Baso # (Auto) Abs Immat Gran (auto) Absolute Neuts (auto) Absolute Nucleated RBC Nucleated RBC % (auto) Anion Gap 13 Estim Creat Clear Calc 96.8 Estimated GFR > 60 POC Glucose Random Glucose 228 H Lactic Acid 2.8 H* Lactic Acid F/U @ 2Hr Calcium 7.4 L D Phosphorus Magnesium 1.3 L* Total Bilirubin 2.7 H Direct Bilirubin 1.1 H AST 63 H ALT 33 Alkaline Phosphatase 69 Troponin I High Sens 22.5 D Total Protein 5.7 L Albumin 2.9 L Lipase 18 Urine Color Urine Appearance Urine pH Ur Specific [place] Urine Protein Urine Glucose (UA) Urine Ketones Urine Blood Urine Nitrite Ur Leukocyte Esterase Urine RBC Urine WBC Ur Squamous Epith Cells Urine Bacteria Hyaline Casts COVID-19 ([facility]) COVID-19 Clin Com 06/15/22 06/15/22 06/15/22 14:58 16:51 18:18 MCV 89.6 MCH 30.4 MCHC 33.9 RDW 17.0 H Plt Count 25 L D MPV Not Reportable Immature Gran % (Auto) 0.4 Neut % (Auto) 82.4 H Lymph % (Auto) 7.0 L [place] % (Auto) 9.8 Eos % (Auto) 0.0 Baso % (Auto) 0.4 Lymph # (Auto) 0.5 L [place] # (Auto) 0.7 Eos # (Auto) 0.0 Baso # (Auto) 0.0 Abs Immat Gran (auto) 0.03 Absolute Neuts (auto) 5.5 Absolute Nucleated RBC 0.000 Nucleated RBC % (auto) 0.0 Anion Gap Estim Creat Clear Calc Estimated GFR POC Glucose Random Glucose Lactic Acid Lactic Acid F/U @ 2Hr 1.2 Calcium Phosphorus Magnesium Total Bilirubin Direct Bilirubin AST ALT Alkaline Phosphatase Troponin I High Sens Total Protein Albumin Lipase Urine Color Urine Appearance Urine pH Ur Specific [place] Urine Protein Urine Glucose (UA) Urine Ketones Urine Blood Urine Nitrite Ur Leukocyte Esterase Urine RBC Urine WBC Ur Squamous Epith Cells Urine Bacteria Hyaline Casts COVID-19 ([facility]) Negative COVID-19 Clin Com See Note 06/15/22 06/15/22 06/16/22 19:41 21:05 05:06 MCV 89.3 MCH 30.4 MCHC 34.0 RDW 17.2 H Plt Count 20 L* MPV TNP Immature Gran % (Auto) Neut % (Auto) Lymph % (Auto) [place] % (Auto) Eos % (Auto) Baso % (Auto) Lymph # (Auto) [place] # (Auto) Eos # (Auto) Baso # (Auto) Abs Immat Gran (auto) Absolute Neuts (auto) Absolute Nucleated RBC 0.000 Nucleated RBC % (auto) 0.0 Anion Gap Estim Creat Clear Calc Estimated GFR POC Glucose 138 H Random Glucose Lactic Acid Lactic Acid F/U @ 2Hr Calcium Phosphorus Magnesium Total Bilirubin Direct Bilirubin AST ALT Alkaline Phosphatase Troponin I High Sens Total Protein Albumin Lipase Urine Color [place] A Urine Appearance Cloudy Urine pH 5.5 Ur Specific [place] 1.015 Urine Protein 30 (1+) H Urine Glucose (UA) Negative Urine Ketones Negative Urine Blood Large (3+) H Urine Nitrite Positive H Ur Leukocyte Esterase Large (3+) H Urine RBC >20 H Urine WBC 11-20 Ur Squamous Epith Cells 0-2 Urine Bacteria 1+ Hyaline Casts 0-2 COVID-19 ([facility]) COVID-19 Clin Com 06/16/22 06/16/22 06/16/22 05:06 08:08 10:59 MCV MCH MCHC RDW Plt Count MPV Immature Gran % (Auto) Neut % (Auto) Lymph % (Auto) [place] % (Auto) Eos % (Auto) Baso % (Auto) Lymph # (Auto) [place] # (Auto) Eos # (Auto) Baso # (Auto) Abs Immat Gran (auto) Absolute Neuts (auto) Absolute Nucleated RBC Nucleated RBC % (auto) Anion Gap 10 L Estim Creat Clear Calc 107.0 Estimated GFR > 60 POC Glucose 142 H 105 Random Glucose 157 H Lactic Acid Lactic Acid F/U @ 2Hr Calcium 7.0 L Phosphorus 2.0 L Magnesium 1.5 L Total Bilirubin 2.8 H Direct Bilirubin 1.4 H AST 55 H ALT 31 Alkaline Phosphatase 48 Troponin I High Sens Total Protein 4.8 L Albumin 2.8 L Lipase Urine Color Urine Appearance Urine pH Ur Specific [place] Urine Protein Urine Glucose (UA) Urine Ketones Urine Blood Urine Nitrite Ur Leukocyte Esterase Urine RBC Urine WBC Ur Squamous Epith Cells Urine Bacteria Hyaline Casts COVID-19 ([facility]) COVID-19 Clin Com Microbiology Microbiology Results: Microbiology 06/15/22 20:28 Urine Culture - Preliminary Urine clean catch - Urine [facility] top Culture too young to evaluate. 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 intake, low blood pressure found to have fever and probable recurrent UTI Severe sepsis secondary to UTI meets SIRS criteria with fever, tachycardia lactic acid 2.8, improved with IVF BP low - may be r/t dehydration from decreased PO intake in setting of GE junction mass has received 3L bolus, total greater then 30cc/kg bolus with improvement in BP Continue IV ceftriaxone, started 06/15 ID consult pending Bacteremia 1/2 growing GPC, possible contaminant follow final results acute on chronic thrombocytopenia has h/o ITP plt 20, lower then baseline. likely in setting of acute infection no evidence of bleeding follow CBC discussed with hematology - rec platelet transfusion for plt <10 or active bleeding hypomagnesemia/hypokalemia/hypophosphatemia likely r/t to decreased po intake replace and follow levels- replacement for low phos, low mag with TPN- discussed with pharmacy GE junction mass has outpatient appt at [facility] on 06/26 for surgical evaluation continue TPN - LUE PICC line in place nutrition consult monitor electrolytes full liquid diet as tolerated DM decreased PO intake follow POCs, can add SSI if POCs elevated chronic normocytic anemia H/H trending down no gross bleeding observed will check stool occult follow CBC paraoxysmal AF hold carvedilol for hypotension not on AC due to thrombocytopenia Moderate protein calorie malnutrition BMI 21.4 nutrition consult TPN HTN hold bp meds for hypotension dvt ppx - mechanical devices due to thrombocytopenia code status - MOLST confirm DNR/DNI attending - Dr Bucio Requires ongoing stay in the hospital for management SIRS, UTI, hypotension requiring IV fluids and close monitoring Time Spent With Patient Time: Total time managing care of this patient today ____ minutes. Quality Stroke Does the patient have a stroke diagnosis?: No VTE Prior VTE?: No VTE Risk Level:: Medical - moderate - high VTE Device Contraindication: N/A - Device Ordered VTE Drug Contraindication: Treatment Not Indicated
[2022-06-16 15:21] VITALS: BP 117/56; PULSE 78; RESP 18; TEMP 37; O2SAT 97
[2022-06-16 15:56] LABS: Glucose, Whole Blood 129 mg/dL (60-115)
--- NOTE | 2022-06-16 16:04 | W.PM.IDCN ---
History of Present Illness Data of Consult Service Date: 06/16/22 Requesting physician: Shyann Pal Primary Care Provider: NAVNEET CAPUTO Reason for consult: bacteremia He presents with weight loss and esophageal mass over last two weeks. He was given TPN and reports going to get surgery. On 06/15 he has gram positive cocci 1/2 positive. He had prior Group G strep on 04/30. Urine 05/11 showed staph aureus and he was treated. Review of Systems Review of Systems: Yes all other systems are reviewed and are negative [facility] Past Medical History Medical History Atrial fibrillation Blindness of left eye BPH (benign prostatic hyperplasia) CHF (congestive heart failure) Cirrhosis COPD (chronic obstructive pulmonary disease) Diabetes Diverticulosis Gallbladder sludge GERD (gastroesophageal reflux disease) History of COVID-19 Hypothyroid Major depression Osteoarthritis Resides in care home facility 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 Strain of left knee Thrombocytopenia Family History Family History Maternal Grandmother Diabetes Mother Diabetes Family history: reviewed and not pertinent Surgical History Surgical History History of esophagogastroduodenoscopy (EGD) Hx of colonoscopy Hx of eye surgery Social History Social History Household Members: None and Other Household Members Other:: [facility] Housing: Prison Housing Other:: [facility] Do you presently have visiting nurse or other home services: No Alcohol intake: never Patient Tobacco Use Status: Former Tobacco user Quit Date: 10 yrs ago Tobacco use type: Cigarette Years Smoked: quit 10 years ago Advance Directives Date on File: 02/20/20 service: No Current occupational status: retired Meds Allergies Allergy/AdvReac Type Severity Reaction Status Date / Time colchicine Allergy Unknown diarrhea Verified 05/17/22 13:56 Active Medications: Current Medications Acetaminophen (Acetaminophen 325 Mg Tablet) 650 mg PO Q6H PRN PRN Reason: pain, fever Last Admin: 06/16/22 12:51 Dose: 650 mg Albuterol Sulfate (Albuterol Sulfate 90 Mcg 8 Gm Inhaler) 1 puff INHALE Q6H PRN PRN Reason: Wheezing Docusate Sodium (Docusate Sodium 100 Mg Capsule) 100 mg PO DAILY PRN PRN Reason: Constipation Erythromycin (Erythromycin Base 0.5% Oph Oin 1 Gm Tube) 1 cm EYE-LEFT MOTH@0900 [facility] Fluticasone Propionate (Fluticasone Propionate Nasal 16 Gm [place]) 2 spray NOSTRIL-B DAILY [facility] Last Admin: 06/16/22 08:42 Dose: Not Given Glucose (Glucose Gel 15 Gm Gel..Gram.) 15 gm PO Q15M PRN; Protocol PRN Reason: per Hypoglycemia Standing Ord. Sodium Chloride (Ns) 1,000 mls @ 125 mls/hr IVCONT .Q8H [facility] Last Admin: 06/16/22 10:35 Dose: 125 mls/hr Ceftriaxone Sodium 1 gm/ (Sodium Chloride) 50 mls @ 100 mls/hr IV Q24H [facility] Dextrose (D10) 250 mls @ 750 mls/hr IV Q15M PRN; Protocol PRN Reason: per Hypoglycemia Standing Ord. Multivitamins 10 ml/ Trace Metals 1 ml/ Amino Acids/Electrolytes 840 mls @ 35 mls/hr IV DAILY@1800 [facility] Stop: 06/17/22 17:59 Insulin Human Lispro (Insulin Lispro 100 Unit/Ml 3 Ml Vial) 0 unit SUBCUT QIDACHS [facility]; Protocol Last Admin: 06/16/22 11:39 Dose: Not Given Melatonin (Melatonin 3 Mg Tablet) 6 mg PO DAILY@1700 [facility] Omeprazole (Omeprazole 40 Mg Capsule.Dr) 40 mg PO BID@0630,1630 [facility] Last Admin: 06/16/22 06:27 Dose: Not Given Ondansetron HCl (Ondansetron Hcl 4 Mg/2 Ml Vial) 4 mg IVPUSH Q8H PRN PRN Reason: Nausea and Vomiting Pharmacy Consult (Consult Rx Perform Med Rec) 1 each MISCELLANE ONCE PRN PRN Reason: Consult order Sodium Chloride (0.9 % Sodium Chloride Flush 3 Ml Syringe) 3 ml IVFLUSH QSHIFT [facility] Last Admin: 06/16/22 07:11 Dose: 3 ml Sodium Chloride (0.9 % Sodium Chloride Flush 10 Ml Syringe) 5 ml IVFLUSH TID [facility] Last Admin: 06/16/22 15:16 Dose: Not Given Sucralfate (Sucralfate 1 Gm Tablet) 1 gm PO QID [facility] Last Admin: 06/16/22 12:56 Dose: Not Given Home Medications Medication Instructions Recorded Confirmed Last Taken Type carvedilol 12.5 mg tablet 1 tab PO BID@0800,1700 02/21/20 06/15/22 05/17/22 History citalopram 10 mg tablet 1 tab PO DAILY 02/21/20 06/15/22 05/17/22 History citalopram 20 mg tablet 1 tab PO DAILY 02/21/20 06/15/22 05/17/22 History hydroxyzine HCl 25 mg tablet 25 mg PO DAILY 02/21/20 06/15/22 05/16/22 History latanoprost 0.005 % eye drops 1 drp ophthalmic-Right DAILY@1700 02/21/20 06/15/22 05/15/22 History calcium carbonate 200 mg calcium 200 mg PO TID@0800,1200,1700 12/07/21 06/15/22 05/17/22 History (500 mg) chewable tablet (Calcium Antacid) cholecalciferol (vitamin D3) 1,250 1,250 mcg PO QMONTH 12/07/21 06/15/22 05/04/22 History mcg (50,000 unit) capsule erythromycin 5 mg/gram (0.5 %) eye 1 appl ophthalmic-Left MOTH@0900 12/07/21 06/15/22 05/15/22 History ointment insulin aspart U-100 100 unit/mL See Protocol subcut QIDACHS 12/07/21 06/15/22 Unknown History subcutaneous solution (Novolog U-100 Insulin aspart) insulin detemir U-100 100 unit/mL 10 unit subcut DAILY 12/07/21 06/15/22 05/16/22 History subcutaneous solution (Levemir U-100 Insulin) melatonin 5 mg tablet 5 mg PO DAILY@1700 12/07/21 06/15/22 05/15/22 History sucralfate 1 gram tablet 1 g PO QID 12/20/21 06/15/22 05/17/22 History glucagon 1 mg solution for 1 mg subcut Q20M PRN Hypoglycemia 03/28/22 06/15/22 Unknown History injection fluticasone propionate 50 2 spray intranasal DAILY 04/24/22 06/15/2223 History mcg/actuation nasal spray,suspension albuterol sulfate 90 mcg/actuation 1 puff inhalation Q6H PRN Wheezing 06/15/22 06/15/22 Unknown History aerosol inhaler amino acid 4.25 % in 10 % dextrose 75 ea IV DAILY@0400,1600 06/15/22 06/15/22 06/14/22 History intravenous solution (Clinimix) Physical Exam Vital Signs: Vital Signs: Last Vital Signs Temp 98.6 F 06/16/22 15:21 Pulse 78 06/16/22 15:21 Resp 18 06/16/22 15:21 BP 117/56 L 06/16/22 15:21 Pulse Ox 97 06/16/22 15:21 O2 Del Method Room Air 06/16/22 15:21 BMI result Body Mass Index 21.4 Const: General: cooperative HEENT: Head: Yes normal to inspection Face and sinus: Yes normal facial exam Mouth: Normal oral and palatal mucosa present Teeth and gingiva: dentition normal Eyes: General: appearance normal, both eyes and all related structures Pupils: Equal, round and reactive pupils present Resp: Effort & Inspection: normal respiratory effort Cardio: Rate: regular rate Rhythm: regular rhythm GI: Palpation (GI): Soft to palpation and nontender : General: Yes no CVA tenderness Back/Spine/Pelvis: Back: no CVA tenderness Skin: General skin exam: no rashes or lesions noted Neuro: General: moves all extremities Cranial nerves: Yes Equal, round and reactive pupils present Extrem: General: Yes normal to inspection Psych: Other: very thin Results Labs 06/16/22 05:06 06/16/22 05:06 Labs: Short CBC 06/16/22 Range/Units 05:06 WBC 4.0 L (4.8-10.8) X10*3/uL Hgb 8.2 L (14.0-18.0) g/dl Hct 24.1 L (42.0-52.0) % Plt Count 20 L* (160-400) X10*3/uL BMP 06/16/22 05:06 Sodium 142 Potassium 2.9 L Chloride 116 H Carbon Dioxide 19 L BUN 16 Creatinine 0.66 Calcium 7.0 L Liver Function 06/16/22 Range/Units 05:06 Total Bilirubin 2.8 H (0.0-1.0) mg/dL Direct Bilirubin 1.4 H (0.0-0.5) mg/dL AST 55 H (5-37) U/L ALT 31 (0-40) U/L Alkaline Phosphatase 48 (39-117) U/L Albumin 2.8 L (3.5-5.0) g/dL Urine 06/15/22 Range/Units 19:41 Urine Color [place] A Urine Appearance Cloudy Urine pH 5.5 (5.0-9.0) Ur Specific [place] 1.015 (1.005-1.025) Urine Protein 30 (1+) H (Neg-Trace) mg/dL Urine Glucose (UA) Negative (Negative) mg/dL Microbiology Microbiology Results: Microbiology 06/15/22 20:28 Urine clean catch - Urine mcle[facility] top Urine Culture - Preliminary Culture too young to evaluate. 06/15/22 14:53 Blood - Venous Blood Culture - Preliminary Prelim: GPC Gram Stain only Assessment and Plan (1) Weakness: Status: Acute (2) Hypotension: Status: Acute Concern over possible sepsis with Group G strep again or UTI Final blood and urine cultures pending. (3) Acidosis, lactic: Status: Acute Plan Continue Ceftriaxone If staph aureus give Vancomycin Final culture determines treatment. Time Spent With Patient Time: Total time managing care of this patient today ____ minutes.
[2022-06-16] MEDS: cefTRIAXone sodium 1 GM in 0.9 % Sodium Chloride 50 ML IV (16:41)
[2022-06-16] MEDS: 0.9 % Sodium Chloride Flush 10 ML SYRINGE 5 ML IVFLUSH (22:54)
[2022-06-17] MEDS: Acetaminophen 325 MG TABLET 650 MG PO ×3 (02:08→17:24)
[2022-06-17] MEDS: 0.9 % Sodium Chloride 1,000 ML 125 ML IVCONT (03:53)
[2022-06-17 03:57] VITALS: BP 141/86; PULSE 82; RESP 18; TEMP 36.4; O2SAT 99
[2022-06-17 06:43] LABS: Hemoglobin 7.3 g/dl (14.0-18.0); Mean Corpuscular HGB Conc 33.2 g/dl (31.0-36.0); Mean Corpuscular Hemoglobin 30.4 pg (27.0-33.0); Mean Corpuscular Volume 91.7 fL (80.0-98.0); Red Cell Distribution Width 17.8 % (11.0-16.0)
[2022-06-17 06:44] LABS: Platelet Count 24 X10*3/uL (160-400)
[2022-06-17 06:57] LABS: Alanine Aminotransferase 26 U/L (0-40); Alkaline Phosphatase 48 U/L (39-117); Anion Gap 8 (12-20); Aspartate Amino Transferase 39 U/L (5-37); Bilirubin Direct 1.1 mg/dL (0.0-0.5); Bilirubin Total 2.5 mg/dL (0.0-1.0); Blood Urea Nitrogen 12 mg/dL (9-16); Carbon Dioxide 20 mmol/L (22-29); Chloride 117 mmol/L (96-108); Creatinine Clr Calc Pharmacy 112.1; Estimated Glomerular Filt Rate > 60; Glucose Random 185 mg/dL (60-115); Magnesium 1.5 mg/dL (1.6-2.6); Phosphorus 1.8 mg/dL (2.7-4.5); Potassium 2.9 mmol/L (3.3-5.1); Sodium 142 mmol/L (135-145); Total Protein 4.9 g/dL (6.5-8.0)
[2022-06-17 07:22] VITALS: BP 127/67; PULSE 74; RESP 20; TEMP 36.3; O2SAT 99
[2022-06-17 08:18] LABS: Glucose, Whole Blood 165 mg/dL (60-115)
--- NOTE | 2022-06-17 08:38 | PC.NURSE ---
pt A&O diabetic, on TPN - POC of 165 this morning requiring 2 units of insulin coverage. pt states I don't need it . this nurse explained to pt that his sugar is a little elevated from the TPN, and if he has breakfast it will elevate some more. pt still adamantly refused. Provider notified. will continue to monitor vitals and sugars.
[2022-06-17] MEDS: Potassium Phosphate/NS 15 MMOL/250 ML PLAST..BAG 62.5 MMOL IV (10:22)
[2022-06-17] MEDS: vancomycin HCL 1,000 MG, vancomycin HCL 750 MG in 0.9 % Sodium Chloride 500 ML 267.5 MG IV (10:28)
[2022-06-17] MEDS: 0.9 % Sodium Chloride Flush 10 ML SYRINGE 5 ML IVFLUSH ×2 (10:28→17:22)
--- NOTE | 2022-06-17 10:59 | PHA.PROG ---
Admission Date/Time: June 15, 2022 16:59 Indication: Bacteremia Weight in k.668 kg Adjusted body weight in K.2 kg [place] body weight in K.6 kg Obesity Dosing Indication % IBW: N/A Serum Creatinine - Last 168 Hours 06/15/22 06/16/22 06/17/22 14:45 05:06 06:06 Creatinine 0.73 0.66 0.63 Estimated CrCl and GFR - Last 168 Hours 06/15/22 06/16/22 06/17/22 14:45 05:06 06:06 Estim Creat Clear Calc 96.8 107.0 112.1 Estimated GFR > 60 > 60 > 60 Vancomycin Loading Dose: 1750 mg Current Vancomycin Dosing Regimen: 1000 mg Q12H Date and Time for next Vancomycin Level to be drawn: 06/18 @ 0900 Pharmacist Comments on Vancomycin Plan: Patient is moderately malnourished therefore patient needs to be carefully monitor Will start patient on 1000 mg (15 mg/kg) Q12H. Will get a random level prior to 3rd dose to access for safety and adjust dose quickly if needs Pharmacy will monitor renal function daily Carole Khalil, [place] Vancomycin dosing will take advantage of [employer] as a clinical decision support tool that uses Bayesian modeling to calculate individual patient's pharmacokinetic parameters and forecast the patient's drug concentration time course with the target goal AUC 24 range of 400 - 600 mg/L/hr.
--- NOTE | 2022-06-17 11:11 | P.PNIM_ITS ---
Subjective Subjective Date of Service: 06/17/22 Interval History: seen and examined this morning follow-up for UTI, dehydration feeling well this am, no dizziness, abdominal pain, diarrhea, cough, shortness of breath Review of Systems Review of Systems: Yes all other systems are reviewed and are negative Constitutional Constitutional: Denies chills and Denies fever(s) ENT Ears, Nose, Mouth, and Throat: Denies dizziness Cardiovascular Cardiovascular: Denies chest pain, Denies palpitations and Denies dyspnea Respiratory Respiratory: Denies cough and Denies dyspnea Gastrointestinal Gastrointestinal: Denies abdominal pain, Denies diarrhea, Denies nausea and Denies vomiting Neurologic Neurologic: Denies dizziness Endocrine Endocrine: Denies palpitations Physical Exam Vital Signs: Vital Signs: Last Vital Signs Temp 97.4 F 06/17/22 07:22 Pulse 74 06/17/22 07:22 Resp 20 06/17/22 07:22 BP 127/67 06/17/22 07:22 Pulse Ox 99 06/17/22 07:22 O2 Del Method Room Air 06/17/22 07:22 BMI result Body Mass Index 21.4 Appearing in no acute distress head is normocephalic atraumatic eyes pupils are PERRLA sclera is anicteric mouth throat mucous membranes are intact and moist neck is supple no lymphadenopathy, no JVD noted lung sounds are clear to auscultation heart regular rate rhythm, clear S1, S2 positive bowel sounds, abdomen is soft, nontender neuro patient is alert x3, no focal deficits Objective Data Active Medications Acetaminophen (Acetaminophen 325 Mg Tablet) 650 mg PO Q6H PRN PRN Reason: pain, fever Last Admin: 06/17/22 08:32 Dose: 650 mg Documented By: MANDY Albuterol Sulfate (Albuterol Sulfate 90 Mcg 8 Gm Inhaler) 1 puff INHALE Q6H PRN PRN Reason: Wheezing Docusate Sodium (Docusate Sodium 100 Mg Capsule) 100 mg PO DAILY PRN PRN Reason: Constipation Erythromycin (Erythromycin Base 0.5% Oph Oin 1 Gm Tube) 1 cm EYE-LEFT MOTH@0900 [facility] Fluticasone Propionate (Fluticasone Propionate Nasal 16 Gm [place]) 2 spray NOSTRIL-B DAILY [facility] Last Admin: 06/17/22 10:02 Dose: Not Given Documented By: MANDY Non-Admin Reason: Patient Refused Glucose (Glucose Gel 15 Gm Gel..Gram.) 15 gm PO Q15M PRN; Protocol PRN Reason: per Hypoglycemia Standing Ord. Ceftriaxone Sodium 1 gm/ (Sodium Chloride) 50 mls @ 100 mls/hr IV Q24H [facility] Last Infusion: 06/16/22 17:17 Dose: 0 mls/hr Documented By: MANDY Dextrose (D10) 250 mls @ 750 mls/hr IV Q15M PRN; Protocol PRN Reason: per Hypoglycemia Standing Ord. Multivitamins 10 ml/ Trace Metals 1 ml/ Amino Acids/Electrolytes 840 mls @ 35 mls/hr IV DAILY@1800 [facility] Stop: 06/17/22 17:59 Last Admin: 06/16/22 18:37 Dose: 35 mls/hr Documented By: MANDY Potassium Phosphate (Kphos) 15 mmol in 250 mls @ 62.5 mls/hr IV ONCE ONE Stop: 06/17/22 11:45 Last Admin: 06/17/22 10:22 Dose: 62.5 mls/hr Documented By: MANDY Magnesium Sulfate 10 meq/Potassium Phosphate 30 mmol/Calcium Gluconate 9.3 meq/Sodium Acetate 50 meq/Potassium Acetate 50 meq/Amino Acids/Dextrose 1,320 mls @ 55 mls/hr IV DAILY@1800 [facility] Stop: 06/18/22 17:59 Vancomycin HCl 1,000 mg/ (Sodium Chloride) 270 mls @ 270 mls/hr IV Q12H [facility] Lactated Ringer's (Lr) 1,000 mls @ 125 mls/hr IVCONT .Q8H [facility] Insulin Human Lispro (Insulin Lispro 100 Unit/Ml 3 Ml Vial) 0 unit SUBCUT QIDACHS [facility]; Protocol Last Admin: 06/17/22 08:46 Dose: Not Given Documented By: MANDY Non-Admin Reason: Patient Refused Lidocaine (Lidocaine 4 % Patch Adh..Patch) 1 patch TRANSDERMA DAILY [facility]; Protocol Melatonin (Melatonin 3 Mg Tablet) 6 mg PO DAILY@1700 [facility] Last Admin: 06/16/22 17:43 Dose: Not Given Documented By: MANDY Non-Admin Reason: Patient Refused Omeprazole (Omeprazole 40 Mg [place]onson.) 40 mg PO BID@0630,1630 [facility] Last Admin: 06/17/22 05:17 Dose: Not Given Documented By: CONNIE Non-Admin Reason: Patient Refused Ondansetron HCl (Ondansetron Hcl 4 Mg/2 Ml Vial) 4 mg IVPUSH Q8H PRN PRN Reason: Nausea and Vomiting Pharmacy Consult (Consult Rx Perform Med Rec) 1 each MISCELLANE ONCE PRN PRN Reason: Consult order Pharmacy Consult (Consult Rx Vancomycin Dosing) 1 each MISCELLANE DAILY PRN PRN Reason: Consult order Sodium Chloride (0.9 % Sodium Chloride Flush 3 Ml Syringe) 3 ml IVFLUSH QSHIFT [facility] Last Admin: 06/17/22 10:02 Dose: Not Given Documented By: MANDY Non-Admin Reason: IV Running Sodium Chloride (0.9 % Sodium Chloride Flush 10 Ml Syringe) 5 ml IVFLUSH TID [facility] Last Admin: 06/17/22 10:28 Dose: 5 ml Documented By: MANDY Sucralfate (Sucralfate 1 Gm Tablet) 1 gm PO QID [facility] Last Admin: 06/17/22 10:03 Dose: Not Given Documented By: MANDY Non-Admin Reason: Patient Refused Labs 06/17/22 06:06 06/17/22 06:06 Labs: Laboratory Results - last 24 hr 06/16/22 06/16/22 06/17/22 10:59 15:20 06:06 MCV 91.7 MCH 30.4 MCHC 33.2 RDW 17.8 H Plt Count 24 L MPV Not Reportable Absolute Nucleated RBC 0.000 Nucleated RBC % (auto) 0.0 Anion Gap Estim Creat Clear Calc Estimated GFR POC Glucose 105 129 H Random Glucose Calcium Phosphorus Magnesium Total Bilirubin Direct Bilirubin AST ALT Alkaline Phosphatase Total Protein Albumin 06/17/22 06/17/22 06:06 07:25 MCV MCH MCHC RDW Plt Count MPV Absolute Nucleated RBC Nucleated RBC % (auto) Anion Gap 8 L Estim Creat Clear Calc 112.1 Estimated GFR > 60 POC Glucose 165 H Random Glucose 185 H Calcium 7.0 L Phosphorus 1.8 L Magnesium 1.5 L Total Bilirubin 2.5 H Direct Bilirubin 1.1 H AST 39 H ALT 26 Alkaline Phosphatase 48 Total Protein 4.9 L Albumin 3.0 L Microbiology Microbiology Results: Microbiology 06/15/22 14:05 Blood Culture - Preliminary Blood - Venous No growth after 24 hours. 06/15/22 20:28 Urine Culture - Preliminary Urine clean catch - Urine [facility] Culture too young to evaluate. 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 intake, low blood pressure found to have fever and probable recurrent UTI Neck pain lidocaine patch warm patches Severe sepsis secondary to UTI meets SIRS criteria with fever, tachycardia lactic acid 2.8, improved with IVF BP low - may be r/t dehydration from decreased PO intake in setting of GE junction mass has received 3L bolus, total greater then 30cc/kg bolus with improvement in BP Continue IV ceftriaxone, started 06/15 ID consult pending coag negative staph Bacteremia acute on chronic thrombocytopenia 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 likely in setting of acute infection no evidence of bleeding follow CBC discussed with hematology - rec platelet transfusion for plt <10 or active bleeding hypomagnesemia/hypokalemia/hypophosphatemia likely r/t to decreased po intake replace and follow levels- replacement for low phos, low mag with TPN- discussed with pharmacy GE junction mass has outpatient appt at [facility] on 06/26 for surgical evaluation continue TPN - LUE PICC line in place nutrition consult monitor electrolytes full liquid diet as tolerated DM decreased PO intake ss, adjusted to start at 200 chronic normocytic anemia H/H trending down no gross bleeding observed will check stool occult follow CBC paraoxysmal AF hold carvedilol for hypotension not on AC due to thrombocytopenia Moderate protein calorie malnutrition BMI 21.4 nutrition consult TPN HTN hold bp meds for hypotension dvt ppx - mechanical devices due to thrombocytopenia code status - MOLST confirm DNR/DNI attending - Dr Self Requires ongoing stay in the hospital for management SIRS, UTI, hypotension requiring IV fluids and close monitoring Time Spent With Patient Time: Total time managing care of this patient today ____ minutes. Quality Stroke Does the patient have a stroke diagnosis?: No VTE Prior VTE?: No VTE Risk Level:: Medical - moderate - high VTE Device Contraindication: N/A - Device Ordered VTE Drug Contraindication: Treatment Not Indicated
[2022-06-17 11:42] VITALS: BP 131/67; PULSE 73; RESP 20; TEMP 36.6; O2SAT 96
[2022-06-17 12:02] LABS: Glucose, Whole Blood 172 mg/dL (60-115)
[2022-06-17] MEDS: Lidocaine 4 % Patch ADH..PATCH 1 PATCH TRANSDERMA ×2 (12:50→22:17)
[2022-06-17] MEDS: Alteplase Cath Clear 2 MG/2 ML VIAL INTRACATH (12:52)
[2022-06-17] MEDS: Lactated Ringers 1,000 ML 125 ML IVCONT ×2 (12:56→22:02)
[2022-06-17 15:09] VITALS: BP 130/57; PULSE 79; RESP 14; TEMP 36.1; O2SAT 94
[2022-06-17 16:05] LABS: Glucose, Whole Blood 164 mg/dL (60-115)
[2022-06-17] MEDS: Melatonin 3 MG TABLET 6 MG PO (17:24)
[2022-06-17] MEDS: cefTRIAXone sodium 1 GM in 0.9 % Sodium Chloride 50 ML IV (17:24)
[2022-06-17] MEDS: 0.9 % Sodium Chloride Flush 3 ML SYRINGE IVFLUSH (22:03)
--- NOTE | 2022-06-17 22:48 | PM.EVENT ---
Event Note Date of Service: 06/17/22 Event Note: coag negative staph probable contaminant,no Vancomycin,await urine culture Time Spent With Patient Time: Total time managing care of this patient today ____ minutes.
[2022-06-18] VITALS (11 sets, daily range): BP systolic 111–144; BP diastolic 52–80; PULSE 68–88; RESP 16–20; TEMP 36.3–37.7; O2SAT 96–100
[2022-06-18] MEDS: Acetaminophen 325 MG TABLET 650 MG PO ×2 (05:03→12:28)
[2022-06-18] MEDS: Lactated Ringers 1,000 ML 125 ML IVCONT (05:23)
[2022-06-18] MEDS: 0.9 % Sodium Chloride Flush 10 ML SYRINGE 5 ML IVFLUSH (08:18)
[2022-06-18 09:00] LABS: Glucose, Whole Blood 187 mg/dL (60-115)
[2022-06-18 09:14] LABS: Mean Corpuscular HGB Conc 33.2 g/dl (31.0-36.0); Mean Corpuscular Hemoglobin 30.6 pg (27.0-33.0); Mean Corpuscular Volume 92.1 fL (80.0-98.0); Mean Platelet Volume 14.8 fL (9.4-12.4); Red Blood Count 2.16 X10*6/uL (4.60-5.80); Red Cell Distribution Width 17.8 % (11.0-16.0)
[2022-06-18 09:23] LABS: Anion Gap 13 (12-20); Blood Urea Nitrogen 7 mg/dL (9-16); Calcium 7.2 mg/dL (8.4-10.2); Carbon Dioxide 20 mmol/L (22-29); Chloride 114 mmol/L (96-108); Creatinine Clr Calc Pharmacy 128.4; Estimated Glomerular Filt Rate > 60; Glucose Random 183 mg/dL (60-115); Iron 18 mcg/dL (45-160); Percent Iron Saturation 14 % (15-50); Potassium 3.3 mmol/L (3.3-5.1); Sodium 144 mmol/L (135-145); Total Iron Binding Capacity 127 mcg/dL (228-428); Unsaturated Iron Binding 109 ug/dL
[2022-06-18 09:25] LABS: Hematocrit 19.9 % (42.0-52.0); Hemoglobin 6.6 g/dl (14.0-18.0); PLT ABN DIST 1; Platelet Count 23 X10*3/uL (160-400)
[2022-06-18 09:34] LABS: Albumin Level 2.7 g/dL (3.5-5.0); Magnesium 1.3 mg/dL (1.6-2.6); Phosphorus 2.2 mg/dL (2.7-4.5)
--- NOTE | 2022-06-18 09:35 | P.PNIM_ITS ---
Subjective Subjective Date of Service: 06/18/22 Interval History: seen and examined this morning follow-up for UTI, dehydration feeling well this am, no dizziness, abdominal pain, diarrhea, cough, shortness of breath Review of Systems Review of Systems: Yes all other systems are reviewed and are negative Constitutional Constitutional: Denies chills and Denies fever(s) ENT Ears, Nose, Mouth, and Throat: Denies dizziness Cardiovascular Cardiovascular: Denies chest pain, Denies palpitations and Denies dyspnea Respiratory Respiratory: Denies cough and Denies dyspnea Gastrointestinal Gastrointestinal: Denies abdominal pain, Denies diarrhea, Denies nausea and Denies vomiting Neurologic Neurologic: Denies dizziness Endocrine Endocrine: Denies palpitations Physical Exam Vital Signs: Vital Signs: Last Vital Signs Temp 97.5 F 06/18/22 07:31 Pulse 76 06/18/22 07:31 Resp 20 06/18/22 07:31 BP 111/54 L 06/18/22 07:31 Pulse Ox 100 06/18/22 07:31 O2 Del Method Room Air 06/18/22 07:31 BMI result Body Mass Index 21.4 Appearing in no acute distress, legally blind lung sounds are clear to auscultation heart regular rate rhythm, clear S1, S2 positive bowel sounds, abdomen is soft, nontender neuro patient is alert x3, no focal deficits Objective Data Active Medications Acetaminophen (Acetaminophen 325 Mg Tablet) 650 mg PO Q6H PRN PRN Reason: pain, fever Last Admin: 06/18/22 05:03 Dose: 650 mg Documented By: ANTONY Albuterol Sulfate (Albuterol Sulfate 90 Mcg 8 Gm Inhaler) 1 puff INHALE Q6H PRN PRN Reason: Wheezing Docusate Sodium (Docusate Sodium 100 Mg Capsule) 100 mg PO DAILY PRN PRN Reason: Constipation Erythromycin (Erythromycin Base 0.5% Oph Oin 1 Gm Tube) 1 cm EYE-LEFT MOTH@0900 [facility] Fluticasone Propionate (Fluticasone Propionate Nasal 16 Gm [place]) 2 spray NOSTRIL-B DAILY [facility] Last Admin: 06/18/22 09:07 Dose: Not Given Documented By: MANDY Non-Admin Reason: Patient Refused Glucose (Glucose Gel 15 Gm Gel..Gram.) 15 gm PO Q15M PRN; Protocol PRN Reason: per Hypoglycemia Standing Ord. Ceftriaxone Sodium 1 gm/ (Sodium Chloride) 50 mls @ 100 mls/hr IV Q24H [facility] Last Infusion: 06/17/22 17:57 Dose: 0 mls/hr Documented By: MANDY Dextrose (D10) 250 mls @ 750 mls/hr IV Q15M PRN; Protocol PRN Reason: per Hypoglycemia Standing Ord. Magnesium Sulfate 10 meq/Potassium Phosphate 30 mmol/Calcium Gluconate 9.3 meq/Sodium Acetate 50 meq/Potassium Acetate 50 meq/Amino Acids/Dextrose 1,320 mls @ 55 mls/hr IV DAILY@1800 [facility] Stop: 06/18/22 17:59 Last Admin: 06/17/22 18:23 Dose: 55 mls/hr Documented By: MANDY Lactated Ringer's (Lr) 1,000 mls @ 125 mls/hr IVCONT .Q8H [facility] Last Admin: 06/18/22 05:23 Dose: 125 mls/hr Documented By: ANTONY Iron Dextran 25 mg/ Sodium (Chloride) 50.5 mls @ 202 mls/hr IV ONCE ONE Stop: 06/18/22 09:31 Magnesium Sulfate (Magnesium Sulfate/H2o) 2 gm in 50 mls @ 25 mls/hr IV ONCE ONE Stop: 06/18/22 11:32 Insulin Human Lispro (Insulin Lispro 100 Unit/Ml 3 Ml Vial) 0 unit SUBCUT QIDACHS [facility]; Protocol Last Admin: 06/18/22 08:04 Dose: Not Given Documented By: MANDY Non-Admin Reason: No Insulin Coverage Lidocaine (Lidocaine 4 % Patch Adh..Patch) 1 patch TRANSDERMA DAILY [facility]; Prot ocol Last Admin: 06/17/22 22:17 Dose: 1 patch Documented By: ANTONY Comments: given unscheduled called RX spoke to [facility] as patch was thrown away when cleaning patient Melatonin (Melatonin 3 Mg Tablet) 6 mg PO DAILY@1700 [facility] Last Admin: 06/17/22 17:24 Dose: 6 mg Documented By: MANDY Omeprazole (Omeprazole 40 Mg Capsule.) 40 mg PO BID@0630,1630 [facility] Last Admin: 06/18/22 05:27 Dose: Not Given Documented By: ANTONY Non-Admin Reason: Patient Refused Ondansetron HCl (Ondansetron Hcl 4 Mg/2 Ml Vial) 4 mg IVPUSH Q8H PRN PRN Reason: Nausea and Vomiting Pharmacy Consult (Consult Rx Perform Med Rec) 1 each MISCELLANE ONCE PRN PRN Reason: Consult order Sodium Chloride (0.9 % Sodium Chloride Flush 3 Ml Syringe) 3 ml IVFLUSH QSHIFT [facility] Last Admin: 06/18/22 07:48 Dose: Not Given Documented By: MANDY Non-Admin Reason: IV Running Sodium Chloride (0.9 % Sodium Chloride Flush 10 Ml Syringe) 5 ml IVFLUSH TID [facility] Last Admin: 06/18/22 08:18 Dose: 5 ml Documented By: MANDY Sucralfate (Sucralfate 1 Gm Tablet) 1 gm PO QID [facility] Last Admin: 06/18/22 07:48 Dose: Not Given Documented By: MANDY Non-Admin Reason: Patient Refused Labs 06/18/22 08:51 06/18/22 08:51 Labs: Laboratory Results - last 24 hr 06/17/22 06/17/22 06/18/22 11:46 15:52 07:34 MCV MCH MCHC RDW Plt Count MPV Absolute Nucleated RBC Nucleated RBC % (auto) Anion Gap Estim Creat Clear Calc Estimated GFR POC Glucose 172 H 164 H 187 H Random Glucose Calcium Phosphorus Magnesium Iron TIBC % Saturation Unsat Iron Binding Albumin Triglycerides Random Vancomycin 06/18/22 06/18/22 06/18/22 08:51 08:51 08:51 MCV Cancelled MCH Cancelled MCHC Cancelled RDW Cancelled Plt Count Cancelled MPV Cancelled Absolute Nucleated RBC Cancelled Nucleated RBC % (auto) Cancelled Anion Gap Cancelled Estim Creat Clear Calc Cancelled Estimated GFR Cancelled POC Glucose Random Glucose Cancelled Calcium Cancelled Phosphorus Magnesium Iron TIBC % Saturation Unsat Iron Binding Albumin Triglycerides Random Vancomycin 3.0 L 06/18/22 06/18/22 06/18/22 08:51 08:51 08:51 MCV 92.1 MCH 30.6 MCHC 33.2 RDW 17.8 H Plt Count 23 L MPV 14.8 H Absolute Nucleated RBC 0.000 Nucleated RBC % (auto) 0.0 Anion Gap 13 Estim Creat Clear Calc 128.4 Estimated GFR > 60 POC Glucose Random Glucose 183 H Calcium 7.2 L Phosphorus 2.2 L Magnesium 1.3 L* Iron 18 L TIBC 127 L % Saturation 14 L Unsat Iron Binding 109 Albumin 2.7 L Triglycerides 53 Random Vancomycin Microbiology Microbiology Results: Microbiology 06/15/22 14:53 Blood Culture - Final Blood - Venous Staphylococcus epidermidis 06/15/22 14:05 Blood Culture - Final Blood - Venous Staphylococcus epidermidis 06/15/22 20:28 Urine Culture - Preliminary Urine clean catch - Urine [facility] Culture in progress. 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 intake, low blood pressure found to have fever and probable recurrent UTI Acute on chronic normocytic/iron def anemia H/H trending down 6.6/19.9 no gross bleeding observed, patient declining stool occult one unit PRBC ordered iron infusion x1>iron 18/TIBC 127/%14 GI re-consult Hypomagnesemia/hypokalemia/hypophosphatemia likely r/t to decreased po intake replace and follow levels- replacement for low phos, low mag with TPN- discussed with pharmacy Neck pain lidocaine patch warm compress as needed Severe sepsis secondary to UTI meets SIRS criteria with fever, tachycardia lactic acid 2.8, improved with IVF BP low - may be r/t dehydration from decreased PO intake in setting of GE junction mass has received 3L bolus, total greater then 30cc/kg bolus with improvement in BP Continue IV ceftriaxone, started 06/15 ID consult pending coag negative staph Bacteremia acute on chronic thrombocytopenia 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 likely in setting of acute infection no evidence of bleeding follow CBC discussed with hematology - rec platelet transfusion for plt <10 or active bleeding GE junction mass has outpatient appt at [facility] on 06/26 for surgical evaluation continue TPN - LUE PICC line in place nutrition consult monitor electrolytes full liquid diet as tolerated DM decreased PO intake ss, adjusted to start at 200 paraoxysmal AF hold carvedilol for hypotension not on AC due to thrombocytopenia Moderate protein calorie malnutrition BMI 21.4 nutrition consult TPN HTN hold bp meds for hypotension dvt ppx - mechanical devices due to thrombocytopenia code status - MOLST confirm DNR/DNI attending - Dr Self Requires ongoing stay in the hospital for management SIRS, UTI, hypotension requiring IV fluids and close monitoring Time Spent With Patient Time: Total time managing care of this patient today ____ minutes. Quality Stroke Does the patient have a stroke diagnosis?: No VTE Prior VTE?: No VTE Risk Level:: Medical - moderate - high VTE Device Contraindication: N/A - Device Ordered VTE Drug Contraindication: Treatment Not Indicated
[2022-06-18] MEDS: Magnesium Sulfate/H2O 2 GM/50 ML PIGGYBACK IV (10:16)
[2022-06-18] MEDS: Alteplase Cath Clear 2 MG/2 ML VIAL INTRACATH (11:34)
--- NOTE | 2022-06-18 11:46 | PM.HEMONCCN ---
Subjective - Subjective Chief complaint: anemia Patient: known to practice within the last 3 years Consult date: 06/18/22 Primary Care Provider: NAVNEET CAPUTO HPI - Consult Narrative Reason for consult: anemia Narrative: Darren Deleon is a 67 year old male admitted to this to earlier in May for dysphagia and a distal esophageal mass.He was readmitted with sepsis and has developed severe anemia and thrombocytopenia. He is not overtly bleeding at this time. He says he is scheduled to go to the [facility] in the near future for a procedure. The hospitalist no indicates that they have spoken with hematology and a recommendation was made for transfusion of platelets for bleeding or a platelet count less than 10,000. Review of Systems - Constitutional Reports anorexia, Reports fatigue, Reports weakness - Cardiovascular Reports chest pain with activity - Respiratory Reports pain on inspiration - Gastrointestinal Reports diarrhea - Genitourinary Genitourinary: Reports urinary frequency [facility], [facility] Medical History: Medical History (Last Reviewed 06/16/22 @ 16:06 by Bethany Taylor MD) Atrial fibrillation Blindness of left eye BPH (benign prostatic hyperplasia) CHF (congestive heart failure) Cirrhosis COPD (chronic obstructive pulmonary disease) Diabetes Diverticulosis Gallbladder sludge GERD (gastroesophageal reflux disease) History of COVID-19 Hypothyroid Major depression Osteoarthritis Resides in group home facility 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 Strain of left knee Thrombocytopenia Family History: Family History (Last Reviewed 06/16/22 @ 16:06 by Bethany Taylor MD) Maternal Grandmother Diabetes Mother Diabetes Family history: reviewed and not pertinent Surgical History: Surgical History (Last Reviewed 06/16/22 @ 16:06 by Bethany Taylor MD) History of esophagogastroduodenoscopy (EGD) Hx of colonoscopy Hx of eye surgery Social History: Social History (Last Reviewed 06/16/22 @ 16:06 by Bethany Taylor MD) Living Situation History: Household Members: None Household Members: Other Household Members Other:: senior living Housing: Custodial Housing Other:: [facility] [place] Do you presently have visiting nurse or other home services: No Tobacco History: Patient Tobacco Use Status: Former Tobacco user Tobacco use type: Cigarette Years Smoked: quit 10 years ago Smoke Quit Date: 10 yrs ago Advance Directives: Advance Directives Date on File: 02/20/20 Occupation Assessmet: service: No Current occupational status: retired Home Medications and Allergies Current Medications: Current Medications Acetaminophen (Acetaminophen 325 Mg Tablet) 650 mg PO Q6H PRN PRN Reason: pain, fever Last Admin: 06/18/22 05:03 Dose: 650 mg Albuterol Sulfate (Albuterol Sulfate 90 Mcg 8 Gm Inhaler) 1 puff INHALE Q6H PRN PRN Reason: Wheezing Docusate Sodium (Docusate Sodium 100 Mg Capsule) 100 mg PO DAILY PRN PRN Reason: Constipation Erythromycin (Erythromycin Base 0.5% Oph Oin 1 Gm Tube) 1 cm EYE-LEFT MOTH@0900 [facility] Fluticasone Propionate (Fluticasone Propionate Nasal 16 Gm [place]) 2 spray NOSTRIL-B DAILY [facility] Last Admin: 06/18/22 09:07 Dose: Not Given Glucose (Glucose Gel 15 Gm Gel..Gram.) 15 gm PO Q15M PRN; Protocol PRN Reason: per Hypoglycemia Standing Ord. Ceftriaxone Sodium 1 gm/ (Sodium Chloride) 50 mls @ 100 mls/hr IV Q24H [facility] Last Infusion: 06/17/22 17:57 Dose: Infused Dextrose (D10) 250 mls @ 750 mls/hr IV Q15M PRN; Protocol PRN Reason: per Hypoglycemia Standing Ord. Magnesium Sulfate 10 meq/Potassium Phosphate 30 mmol/Calcium Gluconate 9.3 meq/Sodium Acetate 50 meq/Potassium Acetate 50 meq/Amino Acids/Dextrose 1,320 mls @ 55 mls/hr IV DAILY@1800 [facility] Stop: 06/18/22 17:59 Last Admin: 06/17/22 18:23 Dose: 55 mls/hr Magnesium Sulfate 10 meq/Potassium Phosphate 40 mmol/Calcium Gluconate 9.3 meq/Sodium Acetate 30 meq/Potassium Acetate 50 meq/Amino Acids/Dextrose 1,800 mls @ 75 mls/hr IV DAILY@1800 [facility] Stop: 06/19/22 17:59 Fat Emulsion Intravenous (Intralipid) 228 mls @ 38 mls/hr IV DAILY@0000,1800 [facility] Stop: 06/19/22 05:59 Potassium Phosphate (Kphos) 15 mmol in 250 mls @ 62.5 mls/hr IV ONCE ONE Stop: 06/18/22 14:59 Insulin Human Lispro (Insulin Lispro 100 Unit/Ml 3 Ml Vial) 0 unit SUBCUT QIDACHS [facility]; Protocol Last Admin: 06/18/22 11:36 Dose: Not Given Lidocaine (Lidocaine 4 % Patch Adh..Patch) 1 patch TRANSDERMA DAILY [facility]; Protocol Last Admin: 06/17/22 22:17 Dose: 1 patch Melatonin (Melatonin 3 Mg Tablet) 6 mg PO DAILY@1700 [facility] Last Admin: 06/17/22 17:24 Dose: 6 mg Omeprazole (Omeprazole 40 Mg Capsule.Dr) 40 mg PO BID@0630,1630 [facility] Last Admin: 06/18/22 05:27 Dose: Not Given Ondansetron HCl (Ondansetron Hcl 4 Mg/2 Ml Vial) 4 mg IVPUSH Q8H PRN PRN Reason: Nausea and Vomiting Pharmacy Consult (Consult Rx Perform Med Rec) 1 each MISCELLANE ONCE PRN PRN Reason: Consult order Sodium Chloride (0.9 % Sodium Chloride Flush 3 Ml Syringe) 3 ml IVFLUSH QSHIFT [facility] Last Admin: 06/18/22 07:48 Dose: Not Given Sodium Chloride (0.9 % Sodium Chloride Flush 10 Ml Syringe) 5 ml IVFLUSH TID [facility] Last Admin: 06/18/22 08:18 Dose: 5 ml Sucralfate (Sucralfate 1 Gm Tablet) 1 gm PO QID [facility] Last Admin: 06/18/22 07:48 Dose: Not Given Home Medications Medication Instructions Recorded Confirmed Type carvedilol 12.5 mg tablet 1 tab PO BID@0800,1700 02/21/20 06/15/22 History citalopram 10 mg tablet 1 tab PO DAILY 02/21/20 06/15/22 History citalopram 20 mg tablet 1 tab PO DAILY 02/21/20 06/15/22 History hydroxyzine HCl 25 mg tablet 25 mg PO DAILY 02/21/20 06/15/22 History latanoprost 0.005 % eye drops 1 drp ophthalmic-Right DAILY@1700 02/21/20 06/15/22 History calcium carbonate 200 mg calcium 200 mg PO TID@0800,1200,1700 12/07/21 06/15/22 History (500 mg) chewable tablet (Calcium Antacid) cholecalciferol (vitamin D3) 1,250 1,250 mcg PO QMONTH 12/07/21 06/15/22 History mcg (50,000 unit) capsule erythromycin 5 mg/gram (0.5 %) eye 1 appl ophthalmic-Left MOTH@0900 12/07/21 06/15/22 History ointment insulin aspart U-100 100 unit/mL See Protocol subcut QIDACHS 12/07/21 06/15/22 History subcutaneous solution (Novolog U-100 Insulin aspart) insulin detemir U-100 100 unit/mL 10 unit subcut DAILY 12/07/21 06/15/22 History subcutaneous solution (Levemir U-100 Insulin) melatonin 5 mg tablet 5 mg PO DAILY@1700 12/07/21 06/15/22 History sucralfate 1 gram tablet 1 g PO QID 12/20/21 06/15/22 History glucagon 1 mg solution for 1 mg subcut Q20M PRN Hypoglycemia 03/28/22 06/15/22 History injection fluticasone propionate 50 2 spray intranasal DAILY 04/24/22 06/15/22 History mcg/actuation nasal spray,suspension albuterol sulfate 90 mcg/actuation 1 puff inhalation Q6H PRN Wheezing 06/15/22 06/15/22 History aerosol inhaler amino acid 4.25 % in 10 % dextrose 75 ea IV DAILY@0400,1600 06/15/22 06/15/22 History intravenous solution (Clinimix) Allergies Allergy/AdvReac Type Severity Reaction Status Date / Time colchicine Allergy Unknown diarrhea Verified 05/17/22 13:56 Physical Exam Vital signs: Vital Signs Temp 97.5 F 06/18/22 07:31 Pulse 76 06/18/22 07:31 Resp 20 06/18/22 07:31 BP 111/54 L 06/18/22 07:31 Pulse Ox 100 06/18/22 07:31 O2 Del Method Room Air 06/18/22 07:31 Intake & Output 06/17/22 06/18/22 06/18/22 18:59 06:59 18:59 Intake Total 2806.500 / 4725.250 1918.75 / 4725.250 587.5 / 587.5 Balance 2806.500 / 4725.250 1918.75 / 4725.250 587.5 / 587.5 Intake: Intake, Oral Amount 480 / 480 Intake, IV Amount 2326.500 / 4245.250 1918.75 / 4245.250 587.5 / 587.5 AA 5 %/Calcium/Lytes/Dext 15 % 840 / 840 1,000 ml @ 35 mls/hr IV DAILY@ 1800 [facility] with MVI, Adult 10 ml with Trace Elements w/o chromium 1 ml Rx#:[id number] Potassium Phosphate/NS 15 mmol 103.125 / 103.125 In 250 ml @ 62.5 mls/hr IV ONCE ONE Rx#:[id number] cefTRIAXone sodium 1 gm In 0.9 50 / 50 % Sodium Chloride 50 ml @ 100 mls/hr IV Q24H [facility] Rx#: [id number] vancomycin HCL 1,000 mg 414.625 / 414.625 vancomycin HCL 750 mg In 0.9 % Sodium Chloride 500 ml @ 267.5 mls/hr IV ONCE ONE Rx#: [id number] 0.9 % Sodium Chloride 1,000 ml 918.75 / 918.75 @ 125 mls/hr IVCONT .Q8H [facility] Rx #:[id number] Lactated Ringers 1,000 ml @ 125 1918.75 / 1918.75 587.5 / 587.5 mls/hr IVCONT .Q8H [facility] Rx#: [id number] Other: Breakfast % Eaten 25% Lunch % Eaten 25% Number of Incontinent Voids 1 Number of Bowel Movements 1 Urine Brief Urine Color Yellow Last Bowel Movement 06/15/22 Stool Brief Stool Amount Moderate Stool Color Brown Stool Consistency Mushy Weight 71.668 kg - Constitutional Present: no acute distress - Routine HEENT Exam Head: Present: atraumatic, normal inspection ENT: Present: mucous membranes dry - Routine Neck Exam Present: supple - Detailed Neurological Exam: Coma Scale Eye Opening: Spontaneous (4) - Routine Psychiatric Exam Present: normal affect Hem/Onc Consult Result - Labs CBC & Chem 7: 06/18/22 08:51 06/18/22 08:51 Labs: Short CBC 06/18/22 06/18/22 Range/Units 08:51 08:51 WBC Cancelled 4.0 L Hgb Cancelled 6.6 L* Hct Cancelled 19.9 L* Plt Count Cancelled 23 L BMP 06/18/22 06/18/22 08:51 08:51 Sodium Cancelled 144 Potassium Cancelled 3.3 Chloride Cancelled 114 H Carbon Dioxide Cancelled 20 L BUN Cancelled 7 L Creatinine Cancelled 0.55 Calcium Cancelled 7.2 L Liver Function 06/18/22 Range/Units 08:51 Albumin 2.7 L (3.5-5.0) g/dL Assessment and Plan Patient Active problem list reviewed?: Yes (1) Anemia Status: Acute Assessment and plan: He should be transfused with 2 units of packed red blood cells. He should be transfused with platelets for any clinically significant bleeding or if the platelet count is less than 10,000. I agree with the intravenous iron. He should receive folic acid 1 mg daily. (2) Esophageal mass Status: Acute Assessment and plan: Tissue should be obtained and appropriate treatment after staging should be employed.Please notify Dr. Su tomorrow that her patient was admitted and asked her to see him in followup. - Time Spent With Patient Time Spent with Patient (in minutes): 20
[2022-06-18 12:01] LABS: Glucose, Whole Blood 179 mg/dL (60-115)
[2022-06-18 12:07] LABS: Hematocrit 23.2 % (42.0-52.0); Hemoglobin 7.7 g/dl (14.0-18.0)
[2022-06-18] MEDS: Iron Sucrose Complex 200 MG in 0.9 % Sodium Chloride 100 ML 440 MG IV (12:21)
[2022-06-18] MEDS: Potassium Phosphate/NS 15 MMOL/250 ML PLAST..BAG 62.5 MMOL IV (12:27)
[2022-06-18] MEDS: cefTRIAXone sodium 1 GM in 0.9 % Sodium Chloride 50 ML IV (17:28)
[2022-06-18 18:16] LABS: Glucose, Whole Blood 169 mg/dL (60-115)
[2022-06-18] MEDS: Fat Emulsions 20% 250 ML 38 ML IV (18:31)
[2022-06-19 01:52] VITALS: BP 131/66; PULSE 90; RESP 16; TEMP 37.3
[2022-06-19] MEDS: Acetaminophen 325 MG TABLET 650 MG PO ×2 (01:59→07:59)
[2022-06-19] MEDS: Fat Emulsions 20% 250 ML 38 ML IV (04:42)
[2022-06-19 06:52] LABS: MANUAL DIFF FLAG NO
[2022-06-19 07:10] LABS: Basophils Percent Auto 0.5 % (0-2); Eosinophils Absolute Auto 0.2 X10*3/uL (0.0-0.4); Eosinophils Percent Auto 2.8 % (0-4); Hematocrit 26.5 % (42.0-52.0); Hemoglobin 8.9 g/dl (14.0-18.0); Imm Gran Abs Auto 0.07 X10*3/uL (0.00-0.03); Imm Gran Pct Auto 1.1 % (0.0-0.4); Lymphocytes Absolute Auto 0.5 X10*3/uL (1.2-4.9); Lymphocytes Percent Auto 8.2 % (20-40); Mean Corpuscular HGB Conc 33.6 g/dl (31.0-36.0); Mean Corpuscular Hemoglobin 30.3 pg (27.0-33.0); Mean Corpuscular Volume 90.1 fL (80.0-98.0); Monocytes Absolute Auto 0.5 X10*3/uL (0.1-1.2); Monocytes Percent Auto 7.5 % (2-11); Neutrophils Absolute Auto 5.2 x10*3/uL (2.0-8.3); Neutrophils Percent Auto 79.9 % (45-73); Red Blood Count 2.94 X10*6/uL (4.60-5.80); White Blood Count 6.4 X10*3/uL (4.8-10.8)
[2022-06-19 07:14] LABS: Platelet Count 32 X10*3/uL (160-400)
[2022-06-19 07:17] LABS: Anion Gap 12 (12-20); Blood Urea Nitrogen 9 mg/dL (9-16); Calcium 7.2 mg/dL (8.4-10.2); Carbon Dioxide 23 mmol/L (22-29); Chloride 109 mmol/L (96-108); Creatinine Clr Calc Pharmacy 126.2; Estimated Glomerular Filt Rate > 60; Glucose Random 245 mg/dL (60-115); Magnesium 1.7 mg/dL (1.6-2.6); Potassium 3.1 mmol/L (3.3-5.1); Sodium 141 mmol/L (135-145)
[2022-06-19 07:20] VITALS: BP 114/51; PULSE 69; RESP 16; TEMP 36.2; O2SAT 100
[2022-06-19 07:29] LABS: Glucose, Whole Blood 229 mg/dL (60-115)
[2022-06-19] MEDS: Lidocaine 4 % Patch ADH..PATCH 1 PATCH TRANSDERMA (08:00)
[2022-06-19] MEDS: 0.9 % Sodium Chloride Flush 3 ML SYRINGE IVFLUSH ×2 (08:06→15:02)
[2022-06-19 08:35] LABS: Phosphorus 3.1 mg/dL (2.7-4.5)
--- NOTE | 2022-06-19 09:09 | PM.HEMONCCN ---
Subjective - Subjective Chief complaint: Consult for: Esophageal mass. Patient: known to practice within the last 3 years Consult date: 06/19/22 Requesting Physician: Yaquelin Martinez. Primary Care Provider: NAVNEET CAPUTO Family Provider: Navneet Caputo. Medical Summary: DIAGNOSIS: 1. ESOPHAGEAL CANCER. 2. ANEMIA. HPI - Consult Narrative Reason for consult: Consult for: Significant anemia. 2. Esophageal cancer. Narrative: Chief Complaint: low blood pressure This is a 67-year-old gentleman with recently diagnosed obstructing GE junction mass who was recently discharged from the hospital on TPN. He was sent to the emergency department due to low blood pressure. On arrival to the emergency department he was noted to have fever of 102.7 and was tachycardic as well as hypotensive with a blood pressure of 90/45. Blood pressure dropped into the 80s, despite this he was awake, alert and able to provide an accurate medical history. He has been unable to tolerate any po medication and has been not taking any po meds. He denied any cough or shortness of breath. He also denied any abdominal pain vomiting or diarrhea. Management: He was given IV fluid and ceftriaxone. Straight catheterization was attempted did but unable to be obtained as patient was unable to tolerate. Chest x-ray unremarkable. He was treated for UTI on last admission and therefore presumed source of infection is recurrent UTI. Review of Systems Review of Systems: Yes all other systems are reviewed and are negative Constitutional: Constitutional: Denies chills and Denies fever(s) ENT: Denies dizziness Cardiovascular: Cardiovascular: Denies chest pain, Denies palpitations and Denies dyspnea Respiratory: Respiratory: Denies cough and Denies dyspnea Gastrointestinal: Gastrointestinal: Denies abdominal pain, Denies diarrhea, Denies nausea and Denies vomiting Neurologic: Denies dizziness Endocrine: Endocrine: Denies palpitations [facility] Medical History: Atrial fibrillation Blindness of left eye BPH (benign prostatic hyperplasia) CHF (congestive heart failure) Cirrhosis COPD (chronic obstructive pulmonary disease) Diabetes Diverticulosis Gallbladder sludge GERD (gastroesophageal reflux disease) History of COVID-19 Hypothyroid Major depression Osteoarthritis Resides in [facility] facility 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 Strain of left knee Thrombocytopenia Family History: Maternal Grandmother Diabetes Mother Diabetes Review of Systems - Constitutional Reports system reviewed and no additional complaints, except as documented - Eyes Reports system reviewed and no additional complaints, except as documented - ENT Reports system reviewed and no additional complaints, except as documented - Cardiovascular Reports system reviewed and no additional complaints, except as documented - Respiratory Reports no additional respiratory complaints - Gastrointestinal Reports system reviewed and no additional complaints, except as documented - Genitourinary Genitourinary: Reports no additional male genitourinary complaints - Musculoskeletal Reports system reviewed and no additional complaints, except as documented - Integumentary/Breasts Skin/Breast: Reports no additional skin complaints - Neurologic Reports weakness, Denies dizziness - Psychiatric Reports system reviewed and no additional complaints, except as documented - Endocrine Reports no additional endocrine complaints - Hematologic/Lymphatic Reports system reviewed and no additional complaints, except as documented - Allergic/Immunologic Reports system reviewed and no additional complaints, except as documented Oncology Screenings - ECOG Performance Status ECOG Performance Status: 2 [facility] Medical History: Medical History (Last Reviewed 06/16/22 @ 16:06 by Bethany Taylor MD) Atrial fibrillation Blindness of left eye BPH (benign prostatic hyperplasia) CHF (congestive heart failure) Cirrhosis COPD (chronic obstructive pulmonary disease) Diabetes Diverticulosis Gallbladder sludge GERD (gastroesophageal reflux disease) History of COVID-19 Hypothyroid Major depression Osteoarthritis Resides in [facility] facility 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 Strain of left knee Thrombocytopenia Functional capacity: wheelchair bound Patient : No Family History: Family History (Last Reviewed 06/16/22 @ 16:06 by Bethany Taylor MD) Maternal Grandmother Diabetes Mother Diabetes Family history: reviewed and not pertinent Surgical History: Surgical History (Last Reviewed 06/16/22 @ 16:06 by Bethany Taylor MD) History of esophagogastroduodenoscopy (EGD) Hx of colonoscopy Hx of eye surgery Social History: Social History (Last Reviewed 06/16/22 @ 16:06 by Bethany Taylor MD) Living Situation History: Household Members: None Household Members: Other Household Members Other:: detention Housing: [facility] Housing Other:: [facility] care Do you presently have visiting nurse or other home services: No Tobacco History: Patient Tobacco Use Status: Former Tobacco user Tobacco use type: Cigarette Years Smoked: quit 10 years ago Smoke Quit Date: 10 yrs ago Advance Directives: Advance Directives Date on File: 02/20/20 Occupation Assessmet: service: No Current occupational status: retired Home Medications and Allergies Current Medications: Current Medications Acetaminophen (Acetaminophen 325 Mg Tablet) 650 mg PO Q6H PRN PRN Reason: pain, fever Last Admin: 06/19/22 07:59 Dose: 650 mg Albuterol Sulfate (Albuterol Sulfate 90 Mcg 8 Gm Inhaler) 1 puff INHALE Q6H PRN PRN Reason: Wheezing Docusate Sodium (Docusate Sodium 100 Mg Capsule) 100 mg PO DAILY PRN PRN Reason: Constipation Erythromycin (Erythromycin Base 0.5% Oph Oin 1 Gm Tube) 1 cm EYE-LEFT MOTH@0900 [facility] Fluticasone Propionate (Fluticasone Propionate Nasal 16 Gm [place]) 2 spray NOSTRIL-B DAILY [facility] Last Admin: 06/18/22 09:07 Dose: Not Given Glucose (Glucose Gel 15 Gm Gel..Gram.) 15 gm PO Q15M PRN; Protocol PRN Reason: per Hypoglycemia Standing Ord. Ceftriaxone Sodium 1 gm/ (Sodium Chloride) 50 mls @ 100 mls/hr IV Q24H [facility] Last Infusion: 06/18/22 18:03 Dose: Infused Dextrose (D10) 250 mls @ 750 mls/hr IV Q15M PRN; Protocol PRN Reason: per Hypoglycemia Standing Ord. Magnesium Sulfate 10 meq/Potassium Phosphate 40 mmol/Calcium Gluconate 9.3 meq/Sodium Acetate 30 meq/Potassium Acetate 50 meq/Amino Acids/Dextrose 1,800 mls @ 75 mls/hr IV DAILY@1800 [facility] Stop: 06/19/22 17:59 Last Infusion: 06/19/22 02:01 Dose: 75 mls/hr Potassium Phosphate (Kphos) 15 mmol in 250 mls @ 62.5 mls/hr IV ONCE ONE Stop: 06/19/22 11:37 Last Admin: 06/19/22 08:57 Dose: Not Given Insulin Human Lispro (Insulin Lispro 100 Unit/Ml 3 Ml Vial) 0 unit SUBCUT QIDACHS [facility]; Protocol Last Admin: 06/19/22 08:55 Dose: Not Given Lidocaine (Lidocaine 4 % Patch Adh..Patch) 1 patch TRANSDERMA DAILY [facility]; Protocol Last Admin: 06/19/22 08:00 Dose: 1 patch Melatonin (Melatonin 3 Mg Tablet) 6 mg PO DAILY@1700 [facility] Last Admin: 06/18/22 17:35 Dose: Not Given Omeprazole (Omeprazole 40 Mg Capsule.Dr) 40 mg PO BID@0630,1630 [facility] Last Admin: 06/19/22 06:12 Dose: Not Given Ondansetron HCl (Ondansetron Hcl 4 Mg/2 Ml Vial) 4 mg IVPUSH Q8H PRN PRN Reason: Nausea and Vomiting Pharmacy Consult (Consult Rx Perform Med Rec) 1 each MISCELLANE ONCE PRN PRN Reason: Consult order Sodium Chloride (0.9 % Sodium Chloride Flush 3 Ml Syringe) 3 ml IVFLUSH QSHIFT [facility] Last Admin: 06/19/22 08:06 Dose: 3 ml Sodium Chloride (0.9 % Sodium Chloride Flush 10 Ml Syringe) 5 ml IVFLUSH TID [facility] Last Admin: 06/18/22 22:59 Dose: Not Given Sucralfate (Sucralfate 1 Gm Tablet) 1 gm PO QID [facility] Last Admin: 06/18/22 22:09 Dose: Not Given Home Medications Medication Instructions Recorded Confirmed Type carvedilol 12.5 mg tablet 1 tab PO BID@0800,1700 02/21/20 06/15/22 History citalopram 10 mg tablet 1 tab PO DAILY 02/21/20 06/15/22 History citalopram 20 mg tablet 1 tab PO DAILY 02/21/20 06/15/22 History hydroxyzine HCl 25 mg tablet 25 mg PO DAILY 02/21/20 06/15/22 History latanoprost 0.005 % eye drops 1 drp ophthalmic-Right DAILY@1700 02/21/20 06/15/22 History calcium carbonate 200 mg calcium 200 mg PO TID@0800,1200,1700 12/07/21 06/15/22 History (500 mg) chewable tablet (Calcium Antacid) cholecalciferol (vitamin D3) 1,250 1,250 mcg PO QMONTH 12/07/21 06/15/22 History mcg (50,000 unit) capsule erythromycin 5 mg/gram (0.5 %) eye 1 appl ophthalmic-Left MOTH@0900 12/07/21 06/15/22 History ointment insulin aspart U-100 100 unit/mL See Protocol subcut QIDACHS 12/07/21 06/15/22 History subcutaneous solution (Novolog U-100 Insulin aspart) insulin detemir U-100 100 unit/mL 10 unit subcut DAILY 12/07/21 06/15/22 History subcutaneous solution (Levemir U-100 Insulin) melatonin 5 mg tablet 5 mg PO DAILY@1700 12/07/21 06/15/22 History sucralfate 1 gram tablet 1 g PO QID 12/20/21 06/15/22 History glucagon 1 mg solution for 1 mg subcut Q20M PRN Hypoglycemia 03/28/22 06/15/22 History injection fluticasone propionate 50 2 spray intranasal DAILY 04/24/22 06/15/22 History mcg/actuation nasal spray,suspension albuterol sulfate 90 mcg/actuation 1 puff inhalation Q6H PRN Wheezing 06/15/22 06/15/22 History aerosol inhaler amino acid 4.25 % in 10 % dextrose 75 ea IV DAILY@0400,1600 06/15/22 06/15/22 History intravenous solution (Clinimix) Allergies Allergy/AdvReac Type Severity Reaction Status Date / Time colchicine Allergy Unknown diarrhea Verified 05/17/22 13:56 Physical Exam Vital signs: Vital Signs Temp 97.2 F 06/19/22 07:20 Pulse 69 06/19/22 07:20 Resp 16 06/19/22 07:20 BP 114/51 L 06/19/22 07:20 Pulse Ox 100 06/19/22 07:20 O2 Del Method Room Air 06/19/22 07:20 Intake & Output 06/18/22 06/19/22 06/19/22 18:59 06:59 18:59 Intake Total 1571.5 / 2840.750 1269.250 / 2840.750 Balance 1571.5 / 2840.750 1269.250 / 2840.750 Intake: Intake, Oral Amount 240 / 600 360 / 600 Intake (Blood Product) Amount 284 / 634 350 / 634 Red Blood Cells (E0382) Unit 350 / 350 [id number] Red Blood Cells Aph (E0686) 284 / 284 Unit [id number] Intake, IV Amount 1047.5 / 1606.750 559.250 / 1606.750 Fat Emulsions 20% 250 ml @ 38 228.000 / 228.000 mls/hr IV DAILY@0000,1800 [facility] Rx#:[id number] Iron Sucrose Complex 200 mg In 110 / 110 0.9 % Sodium Chloride 100 ml @ 440 mls/hr IV ONCE ONE Rx#: [id number] Amino Acids 5 %/Dextrose 15 % 2 0 / 331.25 331.25 / 331.25 ,000 ml @ 75 mls/hr IV DAILY@ 1800 XI with Magnesium Sulfate 10 meq with Potassium Phosphate 40 mmol with Calcium Gluconate 9.3 meq with Sodium Acetate 30 meq with Potassium Acetate 50 meq Rx#:[id number] Magnesium Sulfate/H2O 2 gm In 50 / 50 50 ml @ 25 mls/hr IV ONCE ONE Rx#:[id number] Potassium Phosphate/NS 15 mmol 250 / 250 In 250 ml @ 62.5 mls/hr IV ONCE ONE Rx#:[id number] cefTRIAXone sodium 1 gm In 0.9 50 / 50 % Sodium Chloride 50 ml @ 100 mls/hr IV Q24H [facility] Rx#: [id number] Lactated Ringers 1,000 ml @ 125 587.5 / 587.5 mls/hr IVCONT .Q8H [facility] Rx#: [id number] Other: Breakfast % Eaten 0% Lunch % Eaten 0% Number of Incontinent Voids 1 Number of Unmeasured Voids 1 Weight 71.668 kg - Constitutional Present: mild distress Hem/Onc Consult Result - Labs CBC & Chem 7: 06/24/22 08:03 06/24/22 08:03 Labs: Short CBC 06/18/22 06/18/22 06/19/22 Range/Units 08:51 11:59 06:14 WBC 4.0 L 6.4 (4.8-10.8) X10*3/uL Hgb 6.6 L* 7.7 L 8.9 L (14.0-18.0) g/dl Hct 19.9 L* 23.2 L 26.5 L (42.0-52.0) % Plt Count 23 L 32 L D (160-400) X10*3/uL BMP 06/18/22 06/18/22 06/19/22 08:51 08:51 06:14 Sodium Cancelled 144 141 Potassium Cancelled 3.3 3.1 L Chloride Cancelled 114 H 109 H Carbon Dioxide Cancelled 20 L 23 BUN Cancelled 7 L 9 Creatinine Cancelled 0.55 0.56 Calcium Cancelled 7.2 L 7.2 L Liver Function 06/18/22 Range/Units 08:51 Albumin 2.7 L (3.5-5.0) g/dL Assessment and Plan Patient Active problem list reviewed?: Yes (1) Anemia Status: Acute (2) Esophageal mass Status: Acute Assessment and plan: 67-year-old gentleman, presented with difficulty swallowing. Barium swallow done at [facility] showed esophageal mass extending towards GE junction causing high-grade stricture and partial obstruction and mild esophageal dysmotility Upper endoscopy from 05/18: Esophagus:?Upper esophagus was mildly dilated and fluid was suctioned out. At the GEJ, there was a mass that appeared to arise out of the esophagus at 39 cm and prolapsing down into the cardia. The lumen was nearly completely obstructed due to this. Scope was traversed past this with some difficulty. Stomach:? Scant heme was noted in the body. There was a small gastric polyp along the greater curvature. This was removed with forceps biopsy. On retroflexion, the mass was noted prolapsing into the cardia along the lesser curvature almost 2-3 cm in size, spontaneously bleeding. Multiple cold forceps biopsies were taken. Hemospray was applied towards the end for hemostasis. Duodenum:? Normal mucosa was noted in the whole of the examined duodenum. Biopsies were taken from duodenal bulb and second portion of the duodenum. EGD Impressions:? Obstructing GEJ mass (biopsy). PATHOLOGY: High-grade dysplasia, at least. Obstructing GE junction mass; biopsies done- high-grade dysplasia with no underlying dysplasia; This is most likely due to sampling limitation given appearance of mass on EGD. Special immunostains are: Her 2 negative. MSI preserved. Consisent with high grade dysplasia CT scan of the chest from 05/21: Mild dilation of mid and distal esophagus with air-fluid level, with a small annular thickening distal esophagus/GE junction. No abnormal mediastinal or axillary lymphadenopathy. There are no lung nodules seen. PLAN: He needs EUS for staging + endoscopic resection, he has an appointment at [facility] [place] 06/26. If adenocarcinoma confirmed he will need thoracic Surgical Oncology. Can consult Dr. Hernandez. Hgb was 6.6, pt is getting blood transfusion. Repeat blood count improved. On IV Iron, would continue. To continue PPI. Thanks for the consult,Will follow along with you, CC: Navneet Caputo. Yaquelin Martinez. - Time Spent With Patient Time Spent with Patient (in minutes): 30
--- NOTE | 2022-06-19 10:03 | HO.PM.IMPN ---
Subjective Subjective Date of Service: 06/19/22 Interval History: seen and examined this morning follow-up for UTI, dehydration feeling well this am, no dizziness, abdominal pain, diarrhea, cough, shortness of breath Review of Systems Review of Systems: Yes all other systems are reviewed and are negative Constitutional Constitutional: Denies chills and Denies fever(s) ENT Ears, Nose, Mouth, and Throat: Denies dizziness Cardiovascular Cardiovascular: Denies chest pain, Denies palpitations and Denies dyspnea Respiratory Respiratory: Denies cough and Denies dyspnea Gastrointestinal Gastrointestinal: Denies abdominal pain, Denies diarrhea, Denies nausea and Denies vomiting Neurologic Neurologic: Denies dizziness Endocrine Endocrine: Denies palpitations Physical Exam Vital Signs: Vital Signs: Last Vital Signs Temp 97.2 F 06/19/22 07:20 Pulse 69 06/19/22 07:20 Resp 16 06/19/22 07:20 BP 114/51 L 06/19/22 07:20 Pulse Ox 100 06/19/22 07:20 O2 Del Method Room Air 06/19/22 07:20 BMI result Body Mass Index 21.4 Appearing in no acute distress, legally blind lung sounds are clear to auscultation heart regular rate rhythm, clear S1, S2 positive bowel sounds, abdomen is soft, nontender neuro patient is alert x3, no focal deficits Objective Data Active Medications Acetaminophen (Acetaminophen 325 Mg Tablet) 650 mg PO Q6H PRN PRN Reason: pain, fever Last Admin: 06/19/22 07:59 Dose: 650 mg Documented By: JEFF Albuterol Sulfate (Albuterol Sulfate 90 Mcg 8 Gm Inhaler) 1 puff INHALE Q6H PRN PRN Reason: Wheezing Docusate Sodium (Docusate Sodium 100 Mg Capsule) 100 mg PO DAILY PRN PRN Reason: Constipation Erythromycin (Erythromycin Base 0.5% Oph Oin 1 Gm Tube) 1 cm EYE-LEFT MOTH@0900 [facility] Fluticasone Propionate (Fluticasone Propionate Nasal 16 Gm [place]) 2 spray NOSTRIL-B DAILY [facility] Last Admin: 06/18/22 09:07 Dose: Not Given Documented By: MANDY Non-Admin Reason: Patient Refused Glucose (Glucose Gel 15 Gm Gel..Gram.) 15 gm PO Q15M PRN; Protocol PRN Reason: per Hypoglycemia Standing Ord. Ceftriaxone Sodium 1 gm/ (Sodium Chloride) 50 mls @ 100 mls/hr IV Q24H [facility] Last Infusion: 06/18/22 18:03 Dose: 0 mls/hr Documented By: MANDY Dextrose (D10) 250 mls @ 750 mls/hr IV Q15M PRN; Protocol PRN Reason: per Hypoglycemia Standing Ord. Magnesium Sulfate 10 meq/Potassium Phosphate 40 mmol/Calcium Gluconate 9.3 meq/Sodium Acetate 30 meq/Potassium Acetate 50 meq/Amino Acids/Dextrose 1,800 mls @ 75 mls/hr IV DAILY@1800 [facility] Stop: 06/19/22 17:59 Last Infusion: 06/19/22 02:01 Dose: 75 mls/hr Documented By: EZIO Potassium Phosphate (Kphos) 15 mmol in 250 mls @ 62.5 mls/hr IV ONCE ONE Stop: 06/19/22 11:37 Last Admin: 06/19/22 08:57 Dose: Not Given Documented By: JEFF Non-Admin Reason: Patient Refused Insulin Human Lispro (Insulin Lispro 100 Unit/Ml 3 Ml Vial) 0 unit SUBCUT QIDACHS [facility]; Protocol Last Admin: 06/19/22 08:55 Dose: Not Given Documented By: JEFF Non-Admin Reason: Patient Refused Lidocaine (Lidocaine 4 % Patch Adh..Patch) 1 patch TRANSDERMA DAILY [facility]; Protocol Last Admin: 06/19/22 08:00 Dose: 1 patch Documented By: JEFF Melatonin (Melatonin 3 Mg Tablet) 6 mg PO DAILY@1700 [facility] Last Admin: 06/18/22 17:35 Dose: Not Given Documented By: MANDY Non-Admin Reason: Patient Refused Omeprazole (Omeprazole 40 Mg Capsule.) 40 mg PO BID@0630,1630 [facility] Last Admin: 06/19/22 06:12 Dose: Not Given Documented By: EZIO Non-Admin Reason: Patient Refused Ondansetron HCl (Ondansetron Hcl 4 Mg/2 Ml Vial) 4 mg IVPUSH Q8H PRN PRN Reason: Nausea and Vomiting Pharmacy Consult (Consult Rx Perform Med Rec) 1 each MISCELLANE ONCE PRN PRN Reason: Consult order Sodium Chloride (0.9 % Sodium Chloride Flush 3 Ml Syringe) 3 ml IVFLUSH QSHIFT [facility] Last Admin: 06/19/22 08:06 Dose: 3 ml Documented By: JEFF Sodium Chloride (0.9 % Sodium Chloride Flush 10 Ml Syringe) 5 ml IVFLUSH TID [facility] Last Admin: 06/18/22 22:59 Dose: Not Given Documented By: EZIO Non-Admin Reason: IV Running Sucralfate (Sucralfate 1 Gm Tablet) 1 gm PO QID [facility] Last Admin: 06/18/22 22:09 Dose: Not Given Documented By: EZIO Non-Admin Reason: Patient Refused Labs 06/19/22 06:14 06/19/22 06:14 Labs: Laboratory Results - last 24 hr 06/18/22 06/18/22 06/18/22 10:10 11:10 18:12 MCV MCH MCHC RDW Plt Count MPV Immature Gran % (Auto) Neut % (Auto) Lymph % (Auto) [place] % (Auto) Eos % (Auto) Baso % (Auto) Lymph # (Auto) [place] # (Auto) Eos # (Auto) Baso # (Auto) Abs Immat Gran (auto) Absolute Neuts (auto) Absolute Nucleated RBC Nucleated RBC % (auto) Anion Gap Estim Creat Clear Calc Estimated GFR POC Glucose 179 H 169 H Random Glucose Calcium Phosphorus Magnesium Blood Type O Positive Antibody Screen NEGATIVE Crossmatch See Detail 06/19/22 06/19/22 06/19/22 06:14 06:14 07:19 MCV 90.1 MCH 30.3 MCHC 33.6 RDW 17.0 H Plt Count 32 L D MPV Not Reportable Immature Gran % (Auto) 1.1 H Neut % (Auto) 79.9 H Lymph % (Auto) 8.2 L [place] % (Auto) 7.5 Eos % (Auto) 2.8 Baso % (Auto) 0.5 Lymph # (Auto) 0.5 L [place] # (Auto) 0.5 Eos # (Auto) 0.2 Baso # (Auto) 0.0 Abs Immat Gran (auto) 0.07 H Absolute Neuts (auto) 5.2 Absolute Nucleated RBC 0.000 Nucleated RBC % (auto) 0.0 Anion Gap 12 Estim Creat Clear Calc 126.2 Estimated GFR > 60 POC Glucose 229 H Random Glucose 245 H Calcium 7.2 L Phosphorus 3.1 Magnesium 1.7 Blood Type Antibody Screen Crossmatch Microbiology Microbiology Results: Microbiology 06/15/22 20:28 Urine Culture - Final Urine clean catch - Urine [facility] Staphylococcus aureus 06/15/22 14:53 Blood Culture - Final Blood - Venous Staphylococcus epidermidis 06/15/22 14:05 Blood Culture - Final Blood - Venous Staphylococcus epidermidis Assessment and Plan (1) Esophageal mass: Status: Acute (2) Hypotension: Status: Acute (3) Urinary tract infection: Status: Acute Plan 67-year-old male with history of diabetes, 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 intake, low blood pressure found to have fever and probable recurrent UTI Acute on chronic normocytic/iron def anemia H/H trended down to 6.6/19.9 no gross bleeding observed, patient declining stool occult s/p 2 units PRBC with rise in HH iron infusion x1>iron 18/TIBC 127/%14 GI re-consult Seen by hematology> plan for EUS at [facility] on 06/26/22, will give another iron infusion Hypomagnesemia/hypokalemia/hypophosphatemia likely r/t to decreased po intake replace and follow levels- replacement for low phos, low mag staph EPI Bacteremia and Staph aureus UTI pull picc line repeat blood cx hold TPN for now Dozycycline for 10 days for Staph in the urine ID following IV fluids Neck pain lidocaine patch warm compress as needed Severe sepsis secondary to UTI meets SIRS criteria with fever, tachycardia lactic acid 2.8, improved with IVF BP low - may be r/t dehydration from decreased PO intake in setting of GE junction mass has received 3L bolus, total greater then 30cc/kg bolus with improvement in BP s/p IV ceftriaxone, started 06/15 ID consult pending acute on chronic thrombocytopenia 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 likely in setting of acute infection no evidence of bleeding follow CBC discussed with hematology - rec platelet transfusion for plt <10 or active bleeding GE junction mass has outpatient appt at [facility] on 06/26 for surgical evaluation nutrition consult monitor electrolytes full liquid diet as tolerated TPN On hold for now due to staph epi bacteremia, Picc line to be pulled DM decreased PO intake ss, adjusted to start at 200 paraoxysmal AF hold carvedilol for hypotension not on AC due to thrombocytopenia Moderate protein calorie malnutrition BMI 21.4 nutrition consult TPN HTN hold bp meds for hypotension dvt ppx - mechanical devices due to thrombocytopenia code status - MOLST confirm DNR/DNI attending - Dr Bucio Requires ongoing stay in the hospital for management SIRS, UTI, hypotension requiring IV fluids and close monitoring Time Spent With Patient Time: Total time managing care of this patient today ____ minutes. Quality Stroke Does the patient have a stroke diagnosis?: No VTE Prior VTE?: No VTE Risk Level:: Medical - moderate - high VTE Device Contraindication: N/A - Device Ordered VTE Drug Contraindication: Treatment Not Indicated
--- NOTE | 2022-06-19 10:15 | MHC.CM.PN ---
Per ROUNDS discussion, Patient needs an ID consult and is not yet medically cleared for dc. Returning to LT @ [facility] is the goal and CM will continue to follow.
--- NOTE | 2022-06-19 10:50 | MHC.CLN ---
F/U PT IS MODERATELY MALNOURISHED SEE FULL CLINICAL NUTRITION ASSESSMENT DATED 06/16/22 PT IS RECEIVING A F/L DIET PICC LINE IN PLACE PT RECEIVED TPN ON 06/16 D15AA5 AT 35ML/HR PROVIDED 596KCALS, 42G PROTEIN 06/17 PT RECEIVED TPN D15AA5 AT 55ML/HR PROVIDED 937KCALS, 66G PROTEIN 06/18 PT RECEIVED TPN D15AA5 AT 75ML/HR WITH 38ML OF 20% LIPIDS PROVIDED 2190 TOTAL KCALS (30KCALS/KG), 90G PROTEIN (1.2G/KG) DISCUSSED WITH PHARMACY REPLETE LYTES NEEDED 06/19 CONTINUE TPN AT GOAL RATE D15AA5 AT 75ML/HR WITH 38ML OF 20% LIPIDS NOTED ABOVE
[2022-06-19 11:06] VITALS: BP 108/52; PULSE 66; RESP 16; TEMP 36.2; O2SAT 100
[2022-06-19 11:27] LABS: Glucose, Whole Blood 212 mg/dL (60-115)
[2022-06-19] MEDS: Magnesium Sulfate/H2O 2 GM/50 ML PIGGYBACK IV (12:02)
[2022-06-19] MEDS: Iron Sucrose Complex 200 MG in 0.9 % Sodium Chloride 100 ML 440 MG IV (14:24)
[2022-06-19 15:32] VITALS: BP 150/64; PULSE 74; RESP 20; TEMP 36.3; O2SAT 98
[2022-06-19 16:40] LABS: Glucose, Whole Blood 173 mg/dL (60-115)
[2022-06-19] MEDS: Doxycycline Hyclate 100 MG in 0.9 % Sodium Chloride 250 ML 166.67 MG IV (18:12)
[2022-06-19] MEDS: Dextrose 5 % and 0.9 % NaCl 1,000 ML 100 ML IVCONT (18:12)
[2022-06-19] MEDS: 0.9 % Sodium Chloride Flush 10 ML SYRINGE 5 ML IVFLUSH ×2 (18:17→18:18)
[2022-06-19] MEDS: cefTRIAXone sodium 1 GM in 0.9 % Sodium Chloride 50 ML IV (18:22)
[2022-06-19 20:51] LABS: Glucose, Whole Blood 161 mg/dL (60-115)
[2022-06-20 03:24] VITALS: BP 117/60; PULSE 86; RESP 18; TEMP 36.3; O2SAT 98
[2022-06-20] MEDS: Doxycycline Hyclate 100 MG in 0.9 % Sodium Chloride 250 ML 166.67 MG IV ×2 (04:24→17:24)
[2022-06-20] MEDS: Dextrose 5 % and 0.9 % NaCl 1,000 ML 100 ML IVCONT (04:24)
[2022-06-20 06:11] LABS: Basophils Percent Auto 0.4 % (0-2); Eosinophils Absolute Auto 0.2 X10*3/uL (0.0-0.4); Hemoglobin 9.1 g/dl (14.0-18.0); PLT ABN DIST 1; SCAN SMEAR FLAG 1
[2022-06-20 06:14] LABS: Eosinophils Percent Auto 3.5 % (0-4); Hematocrit 27.4 % (42.0-52.0); Imm Gran Abs Auto 0.08 X10*3/uL (0.00-0.03); Imm Gran Pct Auto 1.2 % (0.0-0.4); Lymphocytes Absolute Auto 0.6 X10*3/uL (1.2-4.9); Lymphocytes Percent Auto 8.7 % (20-40); Mean Corpuscular HGB Conc 33.2 g/dl (31.0-36.0); Mean Corpuscular Hemoglobin 30.1 pg (27.0-33.0); Mean Corpuscular Volume 90.7 fL (80.0-98.0); Monocytes Absolute Auto 0.5 X10*3/uL (0.1-1.2); Monocytes Percent Auto 7.2 % (2-11); Neutrophils Absolute Auto 5.4 x10*3/uL (2.0-8.3); Red Blood Count 3.02 X10*6/uL (4.60-5.80); White Blood Count 6.8 X10*3/uL (4.8-10.8)
[2022-06-20 06:26] LABS: Platelet Count 39 X10*3/uL (160-400)
[2022-06-20 06:27] LABS: MANUAL DIFF FLAG NO
[2022-06-20 06:45] LABS: Anion Gap 9 (12-20); Blood Urea Nitrogen 9 mg/dL (9-16); Carbon Dioxide 26 mmol/L (22-29); Chloride 111 mmol/L (96-108); Creatinine Clr Calc Pharmacy 126.2; Estimated Glomerular Filt Rate > 60; Glucose Random 140 mg/dL (60-115); Magnesium 1.7 mg/dL (1.6-2.6); Sodium 143 mmol/L (135-145)
[2022-06-20 07:06] VITALS: BP 118/59; PULSE 73; RESP 19; TEMP 36.3; O2SAT 99
[2022-06-20 07:24] LABS: Glucose, Whole Blood 139 mg/dL (60-115)
[2022-06-20 08:14] LABS: Phosphorus 2.8 mg/dL (2.7-4.5)
--- NOTE | 2022-06-20 09:51 | P.PNIM_ITS ---
Subjective Subjective Date of Service: 06/20/22 Interval History: seen and examined this morning follow-up for UTI, dehydration feeling well this am, no dizziness, abdominal pain, diarrhea, cough, shortness of breath Review of Systems Review of Systems: Yes all other systems are reviewed and are negative Constitutional Constitutional: Denies chills and Denies fever(s) ENT Ears, Nose, Mouth, and Throat: Denies dizziness Cardiovascular Cardiovascular: Denies chest pain, Denies palpitations and Denies dyspnea Respiratory Respiratory: Denies cough and Denies dyspnea Gastrointestinal Gastrointestinal: Denies abdominal pain, Denies diarrhea, Denies nausea and Denies vomiting Neurologic Neurologic: Denies dizziness Endocrine Endocrine: Denies palpitations Physical Exam Vital Signs: Vital Signs: Last Vital Signs Temp 97.3 F 06/20/22 07:06 Pulse 73 06/20/22 07:06 Resp 19 06/20/22 07:06 BP 118/59 L 06/20/22 07:06 Pulse Ox 99 06/20/22 07:06 O2 Del Method Room Air 06/20/22 07:06 BMI result Body Mass Index 21.4 Appearing in no acute distress lung sounds are clear to auscultation heart regular rate rhythm, clear S1, S2 positive bowel sounds, abdomen is soft, nontender neuro patient is alert x3, no focal deficits Objective Data Active Medications Acetaminophen (Acetaminophen 325 Mg Tablet) 650 mg PO Q6H PRN PRN Reason: pain, fever Last Admin: 06/19/22 07:59 Dose: 650 mg Documented By: JEFF Albuterol Sulfate (Albuterol Sulfate 90 Mcg 8 Gm Inhaler) 1 puff INHALE Q6H PRN PRN Reason: Wheezing Docusate Sodium (Docusate Sodium 100 Mg Capsule) 100 mg PO DAILY PRN PRN Reason: Constipation Erythromycin (Erythromycin Base 0.5% Oph Oin 1 Gm Tube) 1 cm EYE-LEFT MOTH@0900 [facility] Last Admin: 06/19/22 12:56 Dose: Not Given Documented By: JEFF Non-Admin Reason: Med Not Available Fluticasone Propionate (Fluticasone Propionate Nasal 16 Gm Thrall) 2 spray NOSTRIL-B DAILY [facility] Last Admin: 06/19/22 12:56 Dose: Not Given Documented By: JEFF Non-Admin Reason: Med Not Available Glucose (Glucose Gel 15 Gm Gel..Gram.) 15 gm PO Q15M PRN; Protocol PRN Reason: per Hypoglycemia Standing Ord. Ceftriaxone Sodium 1 gm/ (Sodium Chloride) 50 mls @ 100 mls/hr IV Q24H [facility] Last Infusion: 06/19/22 20:04 Dose: 0 mls/hr Documented By: ELIZABETH Dextrose (D10) 250 mls @ 750 mls/hr IV Q15M PRN; Protocol PRN Reason: per Hypoglycemia Standing Ord. Doxycycline Hyclate 100 mg/ (Sodium Chloride) 250 mls @ 166.67 mls/hr IV Q12H [facility] Stop: 06/29/22 14:59 Last Infusion: 06/20/22 06:37 Dose: 0 mls/hr Documented By: ELIZABETH Potassium Chloride/Dextrose/Sod Cl (Kcl 40 Meq In 5% Dex/0.9% Sod) 40 meq in 1,000 mls @ 100 mls/hr IVCONT .Q10H [facility] Insulin Human Lispro (Insulin Lispro 100 Unit/Ml 3 Ml Vial) 0 unit SUBCUT QIDACHS [facility]; Protocol Last Admin: 06/19/22 20:54 Dose: Not Given Documented By: ELIZABETH Non-Admin Reason: Patient Refused Lidocaine (Lidocaine 4 % Patch Adh..Patch) 1 patch TRANSDERMA DAILY [facility]; Protocol Last Admin: 06/19/22 08:00 Dose: 1 patch Documented By: JEFF Melatonin (Melatonin 3 Mg Tablet) 6 mg PO DAILY@1700 [facility] Last Admin: 06/19/22 18:19 Dose: Not Given Documented By: JEFF Non-Admin Reason: Patient Refused Omeprazole (Omeprazole 40 Mg Capsule.) 40 mg PO BID@0630,1630 [facility] Last Admin: 06/20/22 06:19 Dose: Not Given Documented By: ELIZABETH Non-Admin Reason: Patient Refused Ondansetron HCl (Ondansetron Hcl 4 Mg/2 Ml Vial) 4 mg IVPUSH Q8H PRN PRN Reason: Nausea and Vomiting Pharmacy Consult (Consult Rx Perform Med Rec) 1 each MISCELLANE ONCE PRN PRN Reason: Consult order Potassium Chloride (Potassium Chloride Packet 20 Meq Packet) 40 meq PO BID [facility] Last Admin: 06/19/22 20:55 Dose: Not Given Documented By: ELIZABETH Non-Admin Reason: Patient Refused Sodium Chloride (0.9 % Sodium Chloride Flush 3 Ml Syringe) 3 ml IVFLUSH QSHIFT [facility] Last Admin: 06/19/22 23:40 Dose: Not Given Documented By: ELIZABETH Non-Admin Reason: IV Running Sodium Chloride (0.9 % Sodium Chloride Flush 10 Ml Syringe) 5 ml IVFLUSH TID [facility] Last Admin: 06/19/22 20:54 Dose: Not Given Documented By: ELIZABETH Non-Admin Reason: IV Running Sucralfate (Sucralfate 1 Gm Tablet) 1 gm PO QID [facility] Last Admin: 06/19/22 20:55 Dose: Not Given Documented By: ELIZABETH Non-Admin Reason: Patient Refused Labs 06/20/22 05:46 06/20/22 05:46 Labs: Laboratory Results - last 24 hr 06/19/22 06/19/22 06/19/22 11:06 16:29 20:47 MCV MCH MCHC RDW Plt Count MPV Immature Gran % (Auto) Neut % (Auto) Lymph % (Auto) [place] % (Auto) Eos % (Auto) Baso % (Auto) Lymph # (Auto) [place] # (Auto) Eos # (Auto) Baso # (Auto) Abs Immat Gran (auto) Absolute Neuts (auto) Absolute Nucleated RBC Nucleated RBC % (auto) Anion Gap Estim Creat Clear Calc Estimated GFR POC Glucose 212 H 173 H 161 H Random Glucose Calcium Phosphorus Magnesium 06/20/22 06/20/22 06/20/22 05:46 05:46 07:04 MCV 90.7 MCH 30.1 MCHC 33.2 RDW 17.0 H Plt Count 39 L MPV TNP Immature Gran % (Auto) 1.2 H Neut % (Auto) 79.0 H Lymph % (Auto) 8.7 L [place] % (Auto) 7.2 Eos % (Auto) 3.5 Baso % (Auto) 0.4 Lymph # (Auto) 0.6 L [place] # (Auto) 0.5 Eos # (Auto) 0.2 Baso # (Auto) 0.0 Abs Immat Gran (auto) 0.08 H Absolute Neuts (auto) 5.4 Absolute Nucleated RBC 0.000 Nucleated RBC % (auto) 0.0 Anion Gap 9 L Estim Creat Clear Calc 126.2 Estimated GFR > 60 POC Glucose 139 H Random Glucose 140 H Calcium 7.0 L Phosphorus 2.8 Magnesium 1.7 Microbiology Microbiology Results: Microbiology 06/15/22 20:28 Urine Culture - Final Urine clean catch - Urine [facility] Staphylococcus aureus Assessment and Plan (1) Esophageal mass: Status: Acute (2) Hypotension: Status: Acute (3) Urinary tract infection: Status: Acute Plan 67-year-old male with history of diabetes, 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 who returns with decreased p.o. intake, low blood pressure found to have fever and probable recurrent UTI Staph EPI Bacteremia and Staph aureus UTI pull picc line repeat blood cx hold TPN and start PPN on peripheral line Doxycycline for total 6/8 days for Staph in the urine ID following IV fluids Acute on chronic normocytic/iron def anemia s/p H/H trended down to 6.6/19.9 no gross bleeding observed, patient declining stool occult s/p 2 units PRBC with rise in HH iron infusion x2>iron 18/TIBC 127/%14 GI re-consult Seen by hematology> plan for EUS at [facility] on 06/26/22 Hypomagnesemia/hypokalemia/hypophosphatemia likely r/t to decreased po intake replace and follow levels- replacement for low phos, low mag Neck pain lidocaine patch warm compress as needed Severe sepsis secondary to UTI meets SIRS criteria with fever, tachycardia lactic acid 2.8, improved with IVF BP low - may be r/t dehydration from decreased PO intake in setting of GE junction mass has received 3L bolus, total greater then 30cc/kg bolus with improvement in BP s/p IV ceftriaxone, started 06/15 ID consult pending acute on chronic thrombocytopenia 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 likely in setting of acute infection no evidence of bleeding follow CBC discussed with hematology - rec platelet transfusion for plt <10 or active bleeding GE junction mass has outpatient appt at [facility] on 06/26 for surgical evaluation nutrition consult monitor electrolytes full liquid diet as tolerated TPN On hold for now due to staph epi bacteremia, Picc line to be pulled DM decreased PO intake ss, adjusted to start at 200 paraoxysmal AF hold carvedilol for hypotension not on AC due to thrombocytopenia Moderate protein calorie malnutrition BMI 21.4 nutrition consult TPN HTN hold bp meds for hypotension dvt ppx - mechanical devices due to thrombocytopenia code status - MOLST confirm DNR/DNI attending - Dr Bucio Requires ongoing stay in the hospital for management SIRS, UTI, hypotension requiring IV fluids and close monitoring Time Spent With Patient Time: Total time managing care of this patient today ____ minutes. Quality Stroke Does the patient have a stroke diagnosis?: No VTE Prior VTE?: No VTE Risk Level:: Medical - moderate - high VTE Device Contraindication: N/A - Device Ordered VTE Drug Contraindication: Treatment Not Indicated
[2022-06-20 10:22] VITALS: BMI 21.4
--- NOTE | 2022-06-20 10:25 | MHC.CLN ---
F/U PICC LINE ACCESS UNAVAILABLE SWITCHING TO PPN FOR NUTRITION SUPPORT DISCUSSED WITH PHARMACY REVIEWED LABS RECOMMEND D10AA4.25 AT 90ML/HR WITH 19ML OF 20% LIPIDS TO PROVIDE 2014 TOTAL KCALS (28KCALS/KG), 92G PROTEIN (1.3G/KG) REPLETE LYTES NEEDED PT CONTINUES ON F/L DIET-VARIABLE INTAKE SEE ALSO FULL CLINICAL NUTRITION ASSESSMENT
[2022-06-20 10:52] LABS: Glucose, Whole Blood 159 mg/dL (60-115)
[2022-06-20 10:58] VITALS: BP 135/63; PULSE 71; RESP 20; TEMP 36.3; O2SAT 100
[2022-06-20] MEDS: Lidocaine 4 % Patch ADH..PATCH 1 PATCH TRANSDERMA (11:28)
[2022-06-20] MEDS: 0.9 % Sodium Chloride Flush 3 ML SYRINGE IVFLUSH ×2 (11:29→17:24)
[2022-06-20] MEDS: 0.9 % Sodium Chloride Flush 10 ML SYRINGE 5 ML IVFLUSH (11:29)
--- NOTE | 2022-06-20 12:15 | MHC.CM.PN ---
Requested information regarding PPN has been faxed to [facility]. CM will follow.
--- NOTE | 2022-06-20 13:45 | PM.EVENT ---
Event Note Date of Service: 06/20/22 Event Note: IV Doxycycline d 6/8 days total abx Time Spent With Patient Time: Total time managing care of this patient today ____ minutes.
[2022-06-20] MEDS: Fat Emulsions 20% 250 ML 19 ML IVCONT (20:44)
--- NOTE | 2022-06-21 00:01 | PM.EVENT ---
Event Note Date of Service: 06/21/22 Event Note: poor iv access. nursing staff attempted with no success, have one Peripheral iv line, refusing po intake of any meds , . able to run PPN only at this time. refusing PO repletion of K Time Spent With Patient Time: Total time managing care of this patient today ____ minutes.
--- NOTE | 2022-06-21 01:22 | PC.NURSE ---
PT refusing care, has poor iv access, a field line kept in due to inability to obtain other access MD aware. Pt is only tolerating PPN at this time no Lipids. Will continue to monitor
[2022-06-21 06:13] LABS: MANUAL DIFF FLAG NO
[2022-06-21 06:33] LABS: Basophils Percent Auto 0.7 % (0-2); Eosinophils Absolute Auto 0.2 X10*3/uL (0.0-0.4); Eosinophils Percent Auto 4.1 % (0-4); Hematocrit 26.3 % (42.0-52.0); Hemoglobin 8.6 g/dl (14.0-18.0); Imm Gran Abs Auto 0.08 X10*3/uL (0.00-0.03); Imm Gran Pct Auto 1.4 % (0.0-0.4); Lymphocytes Absolute Auto 0.5 X10*3/uL (1.2-4.9); Lymphocytes Percent Auto 9.2 % (20-40); Mean Corpuscular HGB Conc 32.7 g/dl (31.0-36.0); Mean Corpuscular Hemoglobin 30.6 pg (27.0-33.0); Mean Corpuscular Volume 93.6 fL (80.0-98.0); Mean Platelet Volume 13.5 fL (9.4-12.4); Monocytes Absolute Auto 0.5 X10*3/uL (0.1-1.2); Monocytes Percent Auto 8.5 % (2-11); Neutrophils Absolute Auto 4.4 x10*3/uL (2.0-8.3); Neutrophils Percent Auto 76.1 % (45-73); Red Blood Count 2.81 X10*6/uL (4.60-5.80); Red Cell Distribution Width 17.2 % (11.0-16.0); White Blood Count 5.8 X10*3/uL (4.8-10.8)
[2022-06-21 06:34] LABS: Platelet Count 39 X10*3/uL (160-400)
[2022-06-21 06:56] LABS: Anion Gap 12 (12-20); Blood Urea Nitrogen 9 mg/dL (9-16); Carbon Dioxide 25 mmol/L (22-29); Chloride 110 mmol/L (96-108); Creatinine Clr Calc Pharmacy 113.9; Estimated Glomerular Filt Rate > 60; Glucose Random 105 mg/dL (60-115); Magnesium 1.7 mg/dL (1.6-2.6); Potassium 3.3 mmol/L (3.3-5.1); Sodium 144 mmol/L (135-145)
--- NOTE | 2022-06-21 07:39 | PM.DS ---
DS: Providers Provider Date of admission: 06/15/22 16:59 Primary care physician: NAVNEET CAPUTO Consults: 06/15/22 17:21 Consult to Infectious Diseases Routine Consulting Provider: [facility] Infectious Disease Reason for consultation: sepsis ?recurrent uti Has provider been notified: No 06/18/22 09:31 Consult to Gastroenterology Routine Consulting Provider: Bina Zuniga Reason for consultation: anemia, low HH Has provider been notified: No 06/18/22 09:34 Consult to Hematology / Oncology Routine Consulting Provider: Mamta Su Reason for consultation: anemia 06/19/22 07:37 Consult to Infectious Diseases Routine Consulting Provider: [facility] Infectious Disease Reason for consultation: staph epi DS: Diagnosis Discharge Diagnosis (1) Esophageal mass: Status: Acute (2) Hypotension: Status: Acute (3) Urinary tract infection: Status: Acute DS: Summary Time Spent with Patient Time attestation: Total time managing care of this patient today ____ minutes. Physical Exam Vital Signs: Vital Signs: Last Vital Signs Temp 97.4 F 06/20/22 10:58 Pulse 71 06/20/22 10:58 Resp 20 06/20/22 10:58 BP 135/63 06/20/22 10:58 Pulse Ox 100 06/20/22 10:58 O2 Del Method Room Air 06/20/22 10:58 BMI result Body Mass Index 21.4 DS: Data Data Completed and Pending Completed studies during hospitalization [Text1]: Procedures Excision of Duodenum, Via Natural or Artificial Opening Endoscopic, Diagnostic (05/17/22) Excision of Esophagogastric Junction, Via Natural or Artificial Opening Endoscopic, Diagnostic (05/17/22) Excision of Stomach, Pylorus, Via Natural or Artificial Opening Endoscopic, Diagnostic (05/17/22) Insertion of Infusion Device into Superior Vena Cava, Percutaneous Approach (05/17/22) Introduction of Mineral-based Topical Hemostatic Agent into Upper GI, Via Natural or Artificial Opening Endoscopic, [employer] 6 (05/17/22) Resection of Gallbladder, Percutaneous Endoscopic Approach (02/01/22) Transfusion of Nonautologous Frozen Plasma into Peripheral Vein, Percutaneous Approach (02/01/22) Transfusion of Nonautologous Platelets into Peripheral Vein, Percutaneous Approach (02/01/22) Transfusion of Nonautologous Red Blood Cells into Peripheral Vein, Percutaneous Approach (02/20/20) Ultrasonography of Superior Vena Cava, Guidance (05/17/22) Labs on day of discharge: Laboratory Results - last 24 hr 06/20/22 06/20/22 06/21/22 05:46 10:44 05:42 WBC 5.8 RBC 2.81 L Hgb 8.6 L Hct 26.3 L MCV 93.6 MCH 30.6 MCHC 32.7 RDW 17.2 H Plt Count 39 L MPV 13.5 H Immature Gran % (Auto) 1.4 H Neut % (Auto) 76.1 H Lymph % (Auto) 9.2 L [place] % (Auto) 8.5 Eos % (Auto) 4.1 H Baso % (Auto) 0.7 Lymph # (Auto) 0.5 L [place] # (Auto) 0.5 Eos # (Auto) 0.2 Baso # (Auto) 0.0 Abs Immat Gran (auto) 0.08 H Absolute Neuts (auto) 4.4 Absolute Nucleated RBC 0.000 Nucleated RBC % (auto) 0.0 Sodium Potassium Chloride Carbon Dioxide Anion Gap BUN Creatinine Estim Creat Clear Calc Estimated GFR POC Glucose 159 H Random Glucose Calcium Phosphorus 2.8 Magnesium Triglycerides 06/21/22 06/21/22 05:42 05:42 WBC RBC Hgb Hct MCV MCH MCHC RDW Plt Count MPV Immature Gran % (Auto) Neut % (Auto) Lymph % (Auto) [place] % (Auto) Eos % (Auto) Baso % (Auto) Lymph # (Auto) [place] # (Auto) Eos # (Auto) Baso # (Auto) Abs Immat Gran (auto) Absolute Neuts (auto) Absolute Nucleated RBC Nucleated RBC % (auto) Sodium 144 Potassium 3.3 Chloride 110 H Carbon Dioxide 25 Anion Gap 12 BUN 9 Creatinine 0.62 Estim Creat Clear Calc 113.9 Estimated GFR > 60 POC Glucose Random Glucose 105 Calcium 7.0 L Phosphorus Magnesium 1.7 Triglycerides 80 Discharge Plan Discharge Patient Disposition: Home Health Service Discharge Diagnosis: Electrolyte abnormalities Hypotension Esophageal mass Referrals: NAVNEET CAPUTO [Primary Care Provider] - 1 Week Discharge Medications: No Action latanoprost 0.005 % drops 1 drp ophthalmic-Right DAILY@1700 carvedilol 12.5 mg tablet 1 tab PO BID@0800,1700 citalopram 10 mg tablet 1 tab PO DAILY Rx Instructions: TDD = 30 MG citalopram 20 mg tablet 1 tab PO DAILY Rx Instructions: TDD = 30 MG hydroxyzine HCl 25 mg tablet 25 mg PO DAILY omeprazole 40 mg Capsule,Delayed Release(Dr/Ec) 40 mg PO BID@0630,1630 Qty: 60 0RF insulin aspart U-100 [Novolog U-100 Insulin aspart] 100 unit/mL solution See Protocol subcut QIDACHS Protocol: Insulin Correction Scale Less than or equal to 110 ---- Give (units): 0 111 to 150 Give (units): 0 151 to 200 Give (units): 2 201 to 250 Give (units): 4 251 to 300 Give (units): 6 301 to 350 Give (units): 8 Greater than 350 Give (units): 10 Call MD if Blood Glucose > : 350 erythromycin 5 mg/gram (0.5 %) ointment 1 appl ophthalmic-Left MOTH@0900 calcium carbonate [Calcium Antacid] 200 mg calcium (500 mg) Tablet,Chewable 200 mg PO TID@0800,1200,1700 cholecalciferol (vitamin D3) 1,250 mcg (50,000 unit) Capsule 1,250 mcg PO QMONTH Rx Instructions: TAKES ON THE 16TH OF EACH MONTH melatonin 5 mg Tablet 5 mg PO DAILY@1700 Levemir U-100 Insulin 100 unit/mL solution 10 unit subcut DAILY sucralfate 1 gram tablet 1 g PO QID Clinimix 4.25%/D10W Sulf Free 4.25 % Parenteral Solution 75 ea IV DAILY@0400,1600 Rx Instructions: 75 Ml/hr albuterol sulfate 90 mcg/actuation Hfa Aerosol Inhaler 1 puff INHALATION Q6H PRN (Reason: Wheezing) glucagon 1 mg recon soln 1 mg subcut Q20M PRN (Reason: Hypoglycemia) Rx Instructions: until target blood sugar attained fluticasone propionate 50 mcg/actuation spray,suspension 2 spray intranasal DAILY colchicine 0.6 mg tablet 0.3 mg PO Q OTHER DAY Qty: 15 0RF Diet: PPN Activity on Discharge: As tolerated Stand Alone Forms: Patient Portal Discharge page Other Ambulatory Orders: Basic Metabolic Panel (DAILY@0600) Timeframe: [id number] Facility: [facility] - Location: Laboratory Ordered By: Yaquelin Martinez Basic Metabolic Panel (DAILY@0600) Timeframe: [id number] Facility: [facility] - Location: Laboratory Ordered By: Yaquelin Martinez Basic Metabolic Panel (DAILY@0600) Timeframe: [id number] Facility: [facility] - Location: Laboratory Ordered By: Yaquelin Martinez Basic Metabolic Panel (DAILY@0600) Timeframe: [id number] Facility: [facility] - Location: Laboratory Ordered By: Yaquelin Martinez Care Plan Goals: Follow up for EUS at [facility] 06/26/22 Plan of Treatment: Continue PPN Change peripheral line every 72 hours Check labs Daily Assessment: See discharge summary
--- NOTE | 2022-06-21 07:39 | HO.PM.IMPN ---
Subjective Subjective Date of Service: 06/21/22 Interval History: seen and examined this morning follow-up for UTI, dehydration feeling well this am, no dizziness, abdominal pain, diarrhea, cough, shortness of breath Review of Systems Review of Systems: Yes all other systems are reviewed and are negative Constitutional Constitutional: Denies chills and Denies fever(s) ENT Ears, Nose, Mouth, and Throat: Denies dizziness Cardiovascular Cardiovascular: Denies chest pain, Denies palpitations and Denies dyspnea Respiratory Respiratory: Denies cough and Denies dyspnea Gastrointestinal Gastrointestinal: Denies abdominal pain, Denies diarrhea, Denies nausea and Denies vomiting Neurologic Neurologic: Denies dizziness Endocrine Endocrine: Denies palpitations Physical Exam Vital Signs: Vital Signs: Last Vital Signs Temp 97.4 F 06/20/22 10:58 Pulse 71 06/20/22 10:58 Resp 20 06/20/22 10:58 BP 135/63 06/20/22 10:58 Pulse Ox 100 06/20/22 10:58 O2 Del Method Room Air 06/20/22 10:58 BMI result Body Mass Index 21.4 Appearing in no acute distress lung sounds are clear to auscultation heart regular rate rhythm, clear S1, S2 positive bowel sounds, abdomen is soft, nontender neuro patient is alert x3, no focal deficits Objective Data Active Medications Acetaminophen (Acetaminophen 325 Mg Tablet) 650 mg PO Q6H PRN PRN Reason: pain, fever Last Admin: 06/19/22 07:59 Dose: 650 mg Documented By: JEFF Albuterol Sulfate (Albuterol Sulfate 90 Mcg 8 Gm Inhaler) 1 puff INHALE Q6H PRN PRN Reason: Wheezing Docusate Sodium (Docusate Sodium 100 Mg Capsule) 100 mg PO DAILY PRN PRN Reason: Constipation Erythromycin (Erythromycin Base 0.5% Oph Oin 1 Gm Tube) 1 cm EYE-LEFT MOTH@0900 [facility] Last Admin: 06/19/22 12:56 Dose: Not Given Documented By: JEFF Non-Admin Reason: Med Not Available Fluticasone Propionate (Fluticasone Propionate Nasal 16 Gm [place]) 2 spray NOSTRIL-B DAILY [facility] Last Admin: 06/20/22 11:30 Dose: Not Given Documented By: JEFF Non-Admin Reason: Patient Refused Glucose (Glucose Gel 15 Gm Gel..Gram.) 15 gm PO Q15M PRN; Protocol PRN Reason: per Hypoglycemia Standing Ord. Dextrose (D10) 250 mls @ 750 mls/hr IV Q15M PRN; Protocol PRN Reason: per Hypoglycemia Standing Ord. Doxycycline Hyclate 100 mg/ (Sodium Chloride) 250 mls @ 166.67 mls/hr IV Q12H [facility] Stop: 06/29/22 14:59 Last Admin: 06/21/22 03:53 Dose: Not Given Documented By: ABHISHEK Non-Admin Reason: No Access Potassium Chloride/Dextrose/Sod Cl (Kcl 40 Meq In 5% Dex/0.9% Sod) 40 meq in 1,000 mls @ 100 mls/hr IVCONT .Q10H [facility] Last Admin: 06/21/22 03:53 Dose: Not Given Documented By: ABHISHEK Non-Admin Reason: No Access Magnesium Sulfate 10 meq/Potassium Phosphate 40 mmol/Calcium Gluconate 9.3 meq/Potassium Acetate 70 meq/Amino Acids/Electrolytes/Dextrose 2,070.8333 mls @ 90 mls/hr IVCONT DAILY@1800 [facility] Stop: 06/21/22 17:01 Last Infusion: 06/20/22 23:29 Dose: 90 mls/hr Documented By: ELIZABETH Fat Emulsion Intravenous (Intralipid) 228 mls @ 19 mls/hr IVCONT BID@0600,1800 [facility] Stop: 06/21/22 17:59 Last Infusion: 06/20/22 20:46 Dose: 0 mls/hr Documented By: JEFF Insulin Human Lispro (Insulin Lispro 100 Unit/Ml 3 Ml Vial) 0 unit SUBCUT QIDACHS [facility]; Protocol Last Admin: 06/20/22 23:35 Dose: Not Given Documented By: ELIZABETH Non-Admin Reason: Patient Refused Lidocaine (Lidocaine 4 % Patch Adh..Patch) 1 patch TRANSDERMA DAILY [facility]; Protocol Last Admin: 06/20/22 11:28 Dose: 1 patch Documented By: JEFF Melatonin (Melatonin 3 Mg Tablet) 6 mg PO DAILY@1700 [facility] Last Admin: 06/20/22 17:41 Dose: Not Given Documented By: JEFF Non-Admin Reason: Patient Refused Omeprazole (Omeprazole 40 Mg [place].) 40 mg PO BID@0630,1630 [facility] Last Admin: 06/21/22 05:34 Dose: Not Given Documented By: ABHISHEK Non-Admin Reason: Patient Refused Ondansetron HCl (Ondansetron Hcl 4 Mg/2 Ml Vial) 4 mg IVPUSH Q8H PRN PRN Reason: Nausea and Vomiting Pharmacy Consult (Consult Rx Perform Med Rec) 1 each MISCELLANE ONCE PRN PRN Reason: Consult order Potassium Chloride (Potassium Chloride Packet 20 Meq Packet) 40 meq PO BID [facility] Last Admin: 06/21/22 01:46 Dose: Not Given Documented By: ABHISHEK Non-Admin Reason: no given by previous RN Sodium Chloride (0.9 % Sodium Chloride Flush 3 Ml Syringe) 3 ml IVFLUSH QSHIFT [facility] Last Admin: 06/21/22 01:47 Dose: Not Given Documented By: ABHISHEK Non-Admin Reason: No Access Sodium Chloride (0.9 % Sodium Chloride Flush 10 Ml Syringe) 5 ml IVFLUSH TID [facility] Last Admin: 06/21/22 01:46 Dose: Not Given Documented By: ABHISHEK Non-Admin Reason: No Access Sucralfate (Sucralfate 1 Gm Tablet) 1 gm PO QID [facility] Last Admin: 06/21/22 01:46 Dose: Not Given Documented By: ABHISHEK Non-Admin Reason: not given by previous RN Labs 06/21/22 05:42 06/21/22 05:42 Labs: Laboratory Results - last 24 hr 06/20/22 06/20/22 06/21/22 05:46 10:44 05:42 MCV 93.6 MCH 30.6 MCHC 32.7 RDW 17.2 H Plt Count 39 L MPV 13.5 H Immature Gran % (Auto) 1.4 H Neut % (Auto) 76.1 H Lymph % (Auto) 9.2 L [place] % (Auto) 8.5 Eos % (Auto) 4.1 H Baso % (Auto) 0.7 Lymph # (Auto) 0.5 L [place] # (Auto) 0.5 Eos # (Auto) 0.2 Baso # (Auto) 0.0 Abs Immat Gran (auto) 0.08 H Absolute Neuts (auto) 4.4 Absolute Nucleated RBC 0.000 Nucleated RBC % (auto) 0.0 Anion Gap Estim Creat Clear Calc Estimated GFR POC Glucose 159 H Random Glucose Calcium Phosphorus 2.8 Magnesium Triglycerides 06/21/22 06/21/22 05:42 05:42 MCV MCH MCHC RDW Plt Count MPV Immature Gran % (Auto) Neut % (Auto) Lymph % (Auto) [place] % (Auto) Eos % (Auto) Baso % (Auto) Lymph # (Auto) [place] # (Auto) Eos # (Auto) Baso # (Auto) Abs Immat Gran (auto) Absolute Neuts (auto) Absolute Nucleated RBC Nucleated RBC % (auto) Anion Gap 12 Estim Creat Clear Calc 113.9 Estimated GFR > 60 POC Glucose Random Glucose 105 Calcium 7.0 L Phosphorus Magnesium 1.7 Triglycerides 80 Assessment and Plan (1) Esophageal mass: Status: Acute (2) Hypotension: Status: Acute (3) Urinary tract infection: Status: Acute Plan 67-year-old male with history of diabetes, 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 intake, low blood pressure found to have fever and probable recurrent UTI Staph EPI Bacteremia and Staph aureus UTI repeat blood cx neg after 24hrs Doxycycline for total 6/8 days for Staph in the urine ID following picc line removed , plan to place midline for PPN Acute on chronic normocytic/iron def anemia s/p H/H trended down to 6.6/19.9 no gross bleeding observed, patient declining stool occult s/p 2 units PRBC with rise in HH iron infusion x2>iron 18/TIBC 127/%14 GI re-consult Seen by hematology> plan for EUS at [facility] on 06/26/22 Hypomagnesemia/hypokalemia/hypophosphatemia likely r/t to decreased po intake replace and follow levels- replacement for low phos, low mag Neck pain lidocaine patch warm compress as needed Severe sepsis secondary to UTI meets SIRS criteria with fever, tachycardia lactic acid 2.8, improved with IVF BP low - may be r/t dehydration from decreased PO intake in setting of GE junction mass has received 3L bolus, total greater then 30cc/kg bolus with improvement in BP s/p IV ceftriaxone, started 06/15 ID consult pending acute on chronic thrombocytopenia 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 likely in setting of acute infection no evidence of bleeding follow CBC discussed with hematology - rec platelet transfusion for plt <10 or active bleeding GE junction mass has outpatient appt at [facility] on 06/26 for surgical evaluation nutrition consult monitor electrolytes full liquid diet as tolerated TPN On hold for now due to staph epi bacteremia, Picc line to be pulled DM decreased PO intake ss, adjusted to start at 200 paraoxysmal AF hold carvedilol for hypotension not on AC due to thrombocytopenia Moderate protein calorie malnutrition BMI 21.4 nutrition consult HTN hold bp meds for hypotension DISPO [facility] dvt ppx - mechanical devices due to thrombocytopenia code status - MOLST confirm DNR/DNI attending - Dr Bucio Requires ongoing stay in the hospital for management SIRS, UTI, hypotension requiring IV fluids and close monitoring Time Spent With Patient Time: Total time managing care of this patient today ____ minutes. Quality Stroke Does the patient have a stroke diagnosis?: No VTE Prior VTE?: No VTE Risk Level:: Medical - moderate - high VTE Device Contraindication: N/A - Device Ordered VTE Drug Contraindication: Treatment Not Indicated
[2022-06-21 07:43] VITALS: BP 120/46; PULSE 70; RESP 20; TEMP 37; O2SAT 100
[2022-06-21 07:58] LABS: Glucose, Whole Blood 112 mg/dL (60-115)
--- NOTE | 2022-06-21 10:07 | MHC.CLN ---
F/U PICC LINE ACCESS UNAVAILABLE PPN FOR NUTRITION SUPPORT UNABLE TO GIVE LIPIDS AT THIS TIME R/T POOR IV ACCESS DISCUSSED WITH PHARMACY REVIEWED LABS RECOMMEND D10AA4.25 AT 90ML/HR TO PROVIDE 1102 KCALS (15KCALS/KG; 55% ESTIMATED KCALS NEEDS), 92G PROTEIN (1.3G/KG) REPLETE LYTES NEEDED PT CONTINUES ON F/L DIET-75-100% INTAKE WILL ADD ENSURE TID TO INCREASE KCALS SUPP TO PROVIDE AN ADDITIONAL 1050KCALS, 60G PROTEIN WITH 100% ACCEPTANCE MONITOR FOR N/V
--- NOTE | 2022-06-21 10:22 | MHC.CM.PN ---
Per ROUNDS discussion, Patient may get a midline today and possibly be ready to return to [facility] tomorrow. CM will follow.
[2022-06-21] MEDS: Lidocaine 4 % Patch ADH..PATCH 1 PATCH TRANSDERMA (10:50)
[2022-06-21 10:55] VITALS: BP 116/57; PULSE 73; RESP 20; TEMP 36.6; O2SAT 98
[2022-06-21 11:19] LABS: Glucose, Whole Blood 108 mg/dL (60-115)
--- NOTE | 2022-06-21 12:05 | MHC.CM.PN ---
CM has informed [facility] that anticipated date of dc is tomorrow and CM has sent them the PPN order via [employer]. [facility] also has questions and PUBLIC AFFAIRS MANAGER/Yaquelin is agreeable to contact [facility]'s DNS/Celia @ [phone] to address their questions.CM will follow.
[2022-06-21 15:48] VITALS: BP 138/65; PULSE 82; RESP 14; TEMP 36.3; O2SAT 96
--- NOTE | 2022-06-21 15:55 | PC.NURSE ---
Patient has no access, MD aware, plan for midline
[2022-06-21 16:39] LABS: Glucose, Whole Blood 111 mg/dL (60-115)
--- NOTE | 2022-06-22 01:15 | PC.NURSE ---
0056 Lab reported gram positive blood culture cocci in clusters via tiger text, forward to Dr Hough with immediate acknowledged, lab returned to draw repeat cultures pt vehemently refused despite education , agreed to redraw in the am.
[2022-06-22 06:53] LABS: MANUAL DIFF FLAG NO
[2022-06-22 07:04] LABS: Basophils Absolute Auto 0.1 X10*3/uL (0.0-0.2); Basophils Percent Auto 0.6 % (0-2); Eosinophils Absolute Auto 0.3 X10*3/uL (0.0-0.4); Eosinophils Percent Auto 3.2 % (0-4); Hematocrit 32.6 % (42.0-52.0); Hemoglobin 10.5 g/dl (14.0-18.0); Imm Gran Abs Auto 0.13 X10*3/uL (0.00-0.03); Imm Gran Pct Auto 1.6 % (0.0-0.4); Lymphocytes Absolute Auto 0.6 X10*3/uL (1.2-4.9); Lymphocytes Percent Auto 7.4 % (20-40); Mean Corpuscular HGB Conc 32.2 g/dl (31.0-36.0); Mean Corpuscular Hemoglobin 30.1 pg (27.0-33.0); Mean Corpuscular Volume 93.4 fL (80.0-98.0); Mean Platelet Volume 12.7 fL (9.4-12.4); Monocytes Absolute Auto 0.5 X10*3/uL (0.1-1.2); Monocytes Percent Auto 6.5 % (2-11); Neutrophils Absolute Auto 6.4 x10*3/uL (2.0-8.3); Neutrophils Percent Auto 80.7 % (45-73); Red Blood Count 3.49 X10*6/uL (4.60-5.80); Red Cell Distribution Width 17.1 % (11.0-16.0); White Blood Count 7.9 X10*3/uL (4.8-10.8)
[2022-06-22 07:06] LABS: Platelet Count 62 X10*3/uL (160-400)
[2022-06-22 07:16] LABS: Anion Gap 14 (12-20); Blood Urea Nitrogen 9 mg/dL (9-16); Calcium 7.6 mg/dL (8.4-10.2); Carbon Dioxide 25 mmol/L (22-29); Chloride 108 mmol/L (96-108); Creatinine Clr Calc Pharmacy 113.9; Estimated Glomerular Filt Rate > 60; Glucose Random 82 mg/dL (60-115); Magnesium 1.8 mg/dL (1.6-2.6); Potassium 3.4 mmol/L (3.3-5.1); Sodium 144 mmol/L (135-145)
[2022-06-22 08:00] VITALS: BP 120/55; PULSE 68; RESP 15; TEMP 36.4; O2SAT 97
[2022-06-22 08:07] LABS: Glucose, Whole Blood 78 mg/dL (60-115)
[2022-06-22 08:39] LABS: Albumin Level 3.6 g/dL (3.5-5.0); Phosphorus 3.2 mg/dL (2.7-4.5)
[2022-06-22] MEDS: Acetaminophen 325 MG TABLET 650 MG PO (09:09)
[2022-06-22] MEDS: Lidocaine 4 % Patch ADH..PATCH 1 PATCH TRANSDERMA (09:10)
[2022-06-22] MEDS: Erythromycin Base 0.5% Oph Oin 1 GM TUBE 1 CM EYE-LEFT (09:10)
[2022-06-22 11:42] LABS: Glucose, Whole Blood 123 mg/dL (60-115)
[2022-06-22 11:46] VITALS: BP 108/54; PULSE 74; RESP 17; TEMP 36.3; O2SAT 95
--- NOTE | 2022-06-22 13:12 | MHC.CLN ---
F/U DISCUSSED WITH PHARMACY REVIEWED LABS RECOMMEND D10AA4.25 AT 90ML/HR WITH 19ML OF 20% LIPIDS TO PROVIDE 2014 TOTAL KCALS (28KCALS/KG), 92G PROTEIN (1.3G/KG) REPLETE LYTES NEEDED PT CONTINUES ON F/L DIET-VARIABLE INTAKE
--- NOTE | 2022-06-22 14:28 | P.PNIM_ITS ---
Subjective Subjective Date of Service: 06/22/22 Interval History: seen and examined this morning follow up for bacteremia, UTI feeling well, frustrated that he is unable to go home today no sob, fever Review of Systems Review of Systems: Yes all other systems are reviewed and are negative Constitutional Constitutional: Denies chills and Denies fever(s) Cardiovascular Cardiovascular: Denies chest pain, Denies palpitations and Denies dyspnea Respiratory Respiratory: Denies cough and Denies dyspnea Gastrointestinal Gastrointestinal: Denies abdominal pain Endocrine Endocrine: Denies palpitations Physical Exam Vital Signs: Vital Signs: Last Vital Signs Temp 97.3 F 06/22/22 11:46 Pulse 74 06/22/22 11:46 Resp 17 06/22/22 11:46 BP 108/54 L 06/22/22 11:46 Pulse Ox 95 06/22/22 11:46 O2 Del Method Room Air 06/22/22 11:46 BMI result Body Mass Index 21.4 Const: General: cooperative, comfortable, alert and awake Nutritional Appe arance: thin Orientation/consciousness: patient oriented x3 Eyes: Other: left eye blind Resp: Effort & Inspection: normal respiratory effort and able to speak in complete sentences Auscultation: clear to auscultation bilaterally Cardio: Rate: regular rate GI: Inspection: No distended Palpation (GI): Soft to palpation and nontender Neuro: General: patient oriented x3 and CN's II-XI intact bilaterally Extrem: Other: Able to move all 4 extremities spontaneously General: Yes no pedal edema Objective Data Active Medications Acetaminophen (Acetaminophen 325 Mg Tablet) 650 mg PO Q6H PRN PRN Reason: pain, fever Last Admin: 06/22/22 09:09 Dose: 650 mg Documented By: TOM Albuterol Sulfate (Albuterol Sulfate 90 Mcg 8 Gm Inhaler) 1 puff INHALE Q6H PRN PRN Reason: Wheezing Colchicine (Colchicine 0.6 Mg Tablet) 0.3 mg PO Q48H XI Docusate Sodium (Docusate Sodium 100 Mg Capsule) 100 mg PO DAILY PRN PRN Reason: Constipation Erythromycin (Erythromycin Base 0.5% Oph Oin 1 Gm Tube) 1 cm EYE-LEFT MOTH@0900 [facility] Last Admin: 06/22/22 09:10 Dose: 1 cm Documented By: TOM Fluticasone Propionate (Fluticasone Propionate Nasal 16 Gm [place]) 2 spray NOSTRIL-B DAILY [facility] Last Admin: 06/22/22 09:10 Dose: Not Given Documented By: TOM Non-Admin Reason: Patient Refused Glucose (Glucose Gel 15 Gm Gel..Gram.) 15 gm PO Q15M PRN; Protocol PRN Reason: per Hypoglycemia Standing Ord. Dextrose (D10) 250 mls @ 750 mls/hr IV Q15M PRN; Protocol PRN Reason: per Hypoglycemia Standing Ord. Doxycycline Hyclate 100 mg/ (Sodium Chloride) 250 mls @ 166.67 mls/hr IV Q12H [facility] Stop: 06/29/22 14:59 Last Admin: 06/22/22 02:36 Dose: Not Given Documented By: ANTONY Non-Admin Reason: No Access Potassium Chloride/Dextrose/Sod Cl (Kcl 40 Meq In 5% Dex/0.9% Sod) 40 meq in 1,000 mls @ 100 mls/hr IVCONT .Q10H [facility] Last Admin: 06/22/22 12:46 Dose: Not Given Documented By: TOM Non-Admin Reason: No Access Magnesium Sulfate 10 meq/Potassium Phosphate 40 mmol/Calcium Gluconate 9.3 meq/Potassium Acetate 70 meq/Multivitamins 10 ml/ Trace Metals 1 ml/ Amino Acids/Electrolytes/Dextrose 2,081.8333 mls @ 90 mls/hr IVCONT DAILY@1800 [facility] Stop: 06/22/22 17:08 Last Admin: 06/21/22 20:50 Dose: Not Given Documented By: ANTONY Non-Admin Reason: No Access Fat Emulsion Intravenous (Intralipid) 228 mls @ 19 mls/hr IVCONT BID@0600,1800 [facility] Stop: 06/22/22 17:59 Last Admin: 06/22/22 05:30 Dose: Not Given Documented By: ANTONY Non-Admin Reason: No Access Magnesium Sulfate 10 meq/Potassium Phosphate 40 mmol/Calcium Gluconate 9.3 meq/Potassium Acetate 70 meq/Amino Acids/Electrolytes/Dextrose 2,070.8333 mls @ 90 mls/hr IVCONT DAILY@1800 [facility] Stop: 06/23/22 17:01 Fat Emulsion Intravenous (Intralipid) 228 mls @ 19 mls/hr IVCONT BID@0600,1800 [facility] Stop: 06/23/22 17:59 Insulin Human Lispro (Insulin Lispro 100 Unit/Ml 3 Ml Vial) 0 unit SUBCUT QIDACHS [facility]; Protocol Last Admin: 06/22/22 12:07 Dose: Not Given Documented By: TOM Non-Admin Reason: No Insulin Coverage Lidocaine (Lidocaine 4 % Patch Adh..Patch) 1 patch TRANSDERMA DAILY [facility]; Protocol Last Admin: 06/22/22 09:10 Dose: 1 patch Documented By: TOM Melatonin (Melatonin 3 Mg Tablet) 6 mg PO DAILY@1700 [facility] Last Admin: 06/21/22 20:49 Dose: Not Given Documented By: ANTONY Non-Admin Reason: Patient Refused Omeprazole (Omeprazole 40 Mg [place].) 40 mg PO BID@0630,1630 [facility] Last Admin: 06/22/22 05:51 Dose: Not Given Documented By: ANTONY Non-Admin Reason: Patient Refused Ondansetron HCl (Ondansetron Hcl 4 Mg/2 Ml Vial) 4 mg IVPUSH Q8H PRN PRN Reason: Nausea and Vomiting Pharmacy Consult (Consult Rx Perform Med Rec) 1 each MISCELLANE ONCE PRN PRN Reason: Consult order Potassium Chloride (Potassium Chloride Packet 20 Meq Packet) 40 meq PO BID [facility] Last Admin: 06/22/22 09:10 Dose: Not Given Documented By: TOM Non-Admin Reason: Patient Refused Sodium Chloride (0.9 % Sodium Chloride Flush 3 Ml Syringe) 3 ml IVFLUSH QSHIFT [facility] Last Admin: 06/22/22 09:10 Dose: Not Given Documented By: TOM Non-Admin Reason: No Access Sodium Chloride (0.9 % Sodium Chloride Flush 10 Ml Syringe) 5 ml IVFLUSH TID [facility] Last Admin: 06/22/22 09:10 Dose: Not Given Documented By: TOM Non-Admin Reason: No Access Sucralfate (Sucralfate 1 Gm Tablet) 1 gm PO QID [facility] Last Admin: 06/22/22 13:22 Dose: Not Given Documented By: TOM Non-Admin Reason: Patient Refused Labs 06/22/22 06:17 06/22/22 06:17 Labs: Laboratory Results - last 24 hr 04/06/21/22 06/21/22 08:51 05:42 16:23 MCV MCH MCHC RDW Plt Count MPV Immature Gran % (Auto) Neut % (Auto) Lymph % (Auto) [place] % (Auto) Eos % (Auto) Baso % (Auto) Lymph # (Auto) [place] # (Auto) Eos # (Auto) Baso # (Auto) Abs Immat Gran (auto) Absolute Neuts (auto) Absolute Nucleated RBC Nucleated RBC % (auto) Anion Gap Estim Creat Clear Calc Estimated GFR POC Glucose 111 Random Glucose Calcium Phosphorus Magnesium Albumin Triglycerides TNP Cancelled 06/22/22 06/22/22 06/22/22 06:17 06:17 07:35 MCV 93.4 MCH 30.1 MCHC 32.2 RDW 17.1 H Plt Count 62 L D MPV 12.7 H Immature Gran % (Auto) 1.6 H Neut % (Auto) 80.7 H Lymph % (Auto) 7.4 L [place] % (Auto) 6.5 Eos % (Auto) 3.2 Baso % (Auto) 0.6 Lymph # (Auto) 0.6 L [place] # (Auto) 0.5 Eos # (Auto) 0.3 Baso # (Auto) 0.1 Abs Immat Gran (auto) 0.13 H Absolute Neuts (auto) 6.4 Absolute Nucleated RBC 0.000 Nucleated RBC % (auto) 0.0 Anion Gap 14 Estim Creat Clear Calc 113.9 Estimated GFR > 60 POC Glucose 78 Random Glucose 82 Calcium 7.6 L D Phosphorus 3.2 Magnesium 1.8 Albumin 3.6 Triglycerides 06/22/22 11:34 MCV MCH MCHC RDW Plt Count MPV Immature Gran % (Auto) Neut % (Auto) Lymph % (Auto) [place] % (Auto) Eos % (Auto) Baso % (Auto) Lymph # (Auto) [place] # (Auto) Eos # (Auto) Baso # (Auto) Abs Immat Gran (auto) Absolute Neuts (auto) Absolute Nucleated RBC Nucleated RBC % (auto) Anion Gap Estim Creat Clear Calc Estimated GFR POC Glucose 123 H Random Glucose Calcium Phosphorus Magnesium Albumin Triglycerides Microbiology Microbiology Results: Microbiology 06/20/22 05:46 Blood Culture - Preliminary Blood - Venous Prelim: GPC Gram Stain only 06/20/22 05:46 Blood Culture - Preliminary Blood - Venous No growth after 48 hours. 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 intake, low blood pressure found to have fever and probable recurrent UTI Staph EPI Bacteremia and Staph aureus UTI BCx 05/26 2/2 + for staph epidermidis, repeat cultures from 06/20 - 02/20 growing GPC. BCx from 06/22 pending Doxycycline for total 6 days for Staph in the urine ID following picc line removed, plan to place midline for PPN but needs negative cultures for 48 hours Acute on chronic normocytic/iron def anemia s/p H/H trended down to 6.6/19.9 no gross bleeding observed, patient declining stool occult s/p 2 units PRBC with rise in HH iron infusion x2>iron 18/TIBC 127/%14 GI re-consult Seen by hematology> plan for EUS at [facility] on 06/26/22 Hypomagnesemia/hypokalemia/hypophosphatemia likely r/t to decreased po intake replace and follow levels- replacement for low phos, low mag Neck pain lidocaine patch warm compress as needed Severe sepsis secondary to UTI meets SIRS criteria with fever, tachycardia lactic acid 2.8, improved with IVF BP low - may be r/t dehydration from decreased PO intake in setting of GE junction mass received 3L bolus, total greater then 30cc/kg bolus with improvement in BP s/p IV ceftriaxone, started 06/15, now on IV doxycycline ID following acute on chronic thrombocytopenia has h/o ITP initially lower then baseline. likely in setting of acute infection discussed with hematology - rec platelet transfusion for plt <10 or active bleeding plt improved GE junction mass has outpatient appt at [facility] on 06/26 for surgical evaluation nutrition following monitor electrolytes full liquid diet as tolerated TPN On hold for now due to staph epi bacteremia, Picc line removed. will transition to PPN via peripheral line for now DM decreased PO intake ss, adjusted to start at 200 paraoxysmal AF carvedilol has been on hold, bp still soft not on AC due to thrombocytopenia Moderate protein calorie malnutrition BMI 21.4 nutrition following HTN hold bp meds for hypotension DISPO [facility] dvt ppx - mechanical devices due to thrombocytopenia code status - MOLST confirm DNR/DNI attending - Dr Bucio Requires ongoing stay in the hospital for management SIRS, UTI, hypotension requiring IV fluids and close monitoring Time Spent With Patient Time: Total time managing care of this patient today ____ minutes. Quality Stroke Does the patient have a stroke diagnosis?: No VTE Prior VTE?: No VTE Risk Level:: Medical - moderate - high VTE Device Contraindication: N/A - Device Ordered VTE Drug Contraindication: Treatment Not Indicated
[2022-06-22 15:29] VITALS: BP 147/66; PULSE 83; RESP 13; TEMP 36.6; O2SAT 98
[2022-06-22] MEDS: 0.9 % Sodium Chloride Flush 3 ML SYRINGE IVFLUSH ×2 (16:16→21:06)
[2022-06-22] MEDS: Doxycycline Hyclate 100 MG in 0.9 % Sodium Chloride 250 ML 166.67 MG IV (16:16)
[2022-06-22] MEDS: Melatonin 3 MG TABLET 6 MG PO (16:20)
[2022-06-22] MEDS: Colchicine 0.6 MG TABLET 0.3 MG PO (16:21)
[2022-06-22 16:45] LABS: Glucose, Whole Blood 86 mg/dL (60-115)
[2022-06-22] MEDS: Fat Emulsions 20% 250 ML 19 ML IVCONT (17:59)
[2022-06-22] MEDS: KCl 40 mEq in 5% Dex/0.9% Sod 40 MEQ/1,000 ML IV.SOLN 100 MEQ IVCONT (21:01)
[2022-06-22] MEDS: 0.9 % Sodium Chloride Flush 10 ML SYRINGE 5 ML IVFLUSH (21:06)
[2022-06-23] MEDS: Doxycycline Hyclate 100 MG in 0.9 % Sodium Chloride 250 ML 166.6 MG IV (02:59)
[2022-06-23] MEDS: KCl 40 mEq in 5% Dex/0.9% Sod 40 MEQ/1,000 ML IV.SOLN 100 MEQ IVCONT (06:13)
[2022-06-23 07:30] LABS: Triglycerides 89 mg/dL
[2022-06-23] MEDS: Fat Emulsions 20% 250 ML 19 ML IVCONT (07:32)
[2022-06-23 08:05] LABS: Glucose, Whole Blood 186 mg/dL (60-115)
[2022-06-23 08:28] VITALS: BP 129/57; PULSE 89; RESP 20; TEMP 36.4; O2SAT 95
[2022-06-23 08:52] LABS: Albumin Level 2.7 g/dL (3.5-5.0); Anion Gap 10 (12-20); Blood Urea Nitrogen 10 mg/dL (9-16); Calcium 6.9 mg/dL (8.4-10.2); Carbon Dioxide 25 mmol/L (22-29); Chloride 110 mmol/L (96-108); Creatinine Clr Calc Pharmacy 113.9; Estimated Glomerular Filt Rate > 60; Glucose Random 199 mg/dL (60-115); Magnesium 1.7 mg/dL (1.6-2.6); Potassium 3.6 mmol/L (3.3-5.1); Sodium 141 mmol/L (135-145)
[2022-06-23] MEDS: Lidocaine 4 % Patch ADH..PATCH 1 PATCH TRANSDERMA (10:23)
--- NOTE | 2022-06-23 10:38 | MHC.CM.PN ---
Midline placement remains the barrier to dc; CM will follow.
--- NOTE | 2022-06-23 10:52 | MHC.CLN ---
F/U DISCUSSED WITH PHARMACY REVIEWED LABS PT CONTINUES ON F/L DIET-VARIABLE INTAKE CONTINUE PPN D10AA4.25 AT 90ML/HR WITH 19ML OF 20% LIPIDS TO PROVIDE 2014 TOTAL KCALS (28KCALS/KG), 92G PROTEIN (1.3G/KG) REPLETE LYTES NEEDED
[2022-06-23 11:18] LABS: Glucose, Whole Blood 180 mg/dL (60-115)
[2022-06-23] MEDS: Calcium Gluconate/NaCl,Iso-Osm 2 GM/100 ML PLAST..BAG IV (12:07)
--- NOTE | 2022-06-23 13:41 | MHC.CM.PN ---
Patient will be getting his Midline at 3PM today, per PA. [facility] is unable to consider taking Patient back until Sunday06/26/2022. CM will follow.
--- NOTE | 2022-06-23 14:30 | MHC.CM.PN ---
CM called [facility] @ [address] [place] [address] @ [phone], and left a message for the [facility] [employer]/Keyla, requesting the arrival time for Patient on 06/26/2022.
--- NOTE | 2022-06-23 14:34 | P.PNIM_ITS ---
Subjective Subjective Date of Service: 06/23/22 Interval History: seen and examined this morning follow up for bacteremia, uTI plan for midline today reporting right elbow pain - states he is having acute flare of gout denies fever, chills Review of Systems Review of Systems: Yes all other systems are reviewed and are negative Constitutional Constitutional: Denies chills and Denies fever(s) ENT Ears, Nose, Mouth, and Throat: Denies dizziness Cardiovascular Cardiovascular: Denies chest pain, Denies palpitations and Denies dyspnea Respiratory Respiratory: Denies cough and Denies dyspnea Gastrointestinal Gastrointestinal: Denies abdominal pain, Denies nausea and Denies vomiting Neurologic Neurologic: Denies dizziness Endocrine Endocrine: Denies palpitations Physical Exam Vital Signs: Vital Signs: Last Vital Signs Temp 97.6 F 06/23/22 08:28 Pulse 89 06/23/22 08:28 Resp 20 06/23/22 08:28 BP 129/57 L 06/23/22 08:28 Pulse Ox 95 06/23/22 08:28 O2 Del Method Room Air 06/23/22 08:28 BMI result Body Mass Index 21.4 Const: General: cooperative, comfortable, alert and awake Nutritional Appearance: thin Orientation/consciousness: patient oriented x3 Eyes: Other: left eye blind Resp: Effort & Inspection: normal respiratory effort and able to speak in complete sentences Auscultation: clear to auscultation bilaterally Cardio: Rate: regular rate GI: Inspection: No distended Palpation (GI): Soft to palpation and nontender Neuro: General: patient oriented x3 and CN's II-XI intact bilaterally Extrem: Other: Able to move all 4 extremities spontaneously right elbow swelling, mild erythema, reports pain but doesn't seem to be painful General: Yes no pedal edema Objective Data Active Medications Acetaminophen (Acetaminophen 325 Mg Tablet) 650 mg PO Q6H PRN PRN Reason: pain, fever Last Admin: 06/22/22 09:09 Dose: 650 mg Documented By: TOM Albuterol Sulfate (Albuterol Sulfate 90 Mcg 8 Gm Inhaler) 1 puff INHALE Q6H PRN PRN Reason: Wheezing Colchicine (Colchicine 0.6 Mg Tablet) 0.3 mg PO Q48H XI Last Admin: 06/22/22 16:21 Dose: 0.3 mg Documented By: TOM Docusate Sodium (Docusate Sodium 100 Mg Capsule) 100 mg PO DAILY PRN PRN Reason: Constipation Erythromycin (Erythromycin Base 0.5% Oph Oin 1 Gm Tube) 1 cm EYE-LEFT MOTH@0900 [facility] Last Admin: 06/22/22 09:10 Dose: 1 cm Documented By: TOM Fluticasone Propionate (Fluticasone Propionate Nasal 16 Gm [place]) 2 spray NOST RIL-B DAILY [facility] Last Admin: 06/23/22 09:48 Dose: Not Given Documented By: TOM Non-Admin Reason: Patient Refused Glucose (Glucose Gel 15 Gm Gel..Gram.) 15 gm PO Q15M PRN; Protocol PRN Reason: per Hypoglycemia Standing Ord. Dextrose (D10) 250 mls @ 750 mls/hr IV Q15M PRN; Protocol PRN Reason: per Hypoglycemia Standing Ord. Doxycycline Hyclate 100 mg/ (Sodium Chloride) 250 mls @ 166.67 mls/hr IV Q12H [facility] Stop: 06/29/22 14:59 Last Infusion: 06/23/22 05:20 Dose: 0 mls/hr Documented By: ANTONY Magnesium Sulfate 10 meq/Potassium Phosphate 40 mmol/Calcium Gluconate 9.3 meq/Potassium Acetate 70 meq/Amino Acids/Electrolytes/Dextrose 2,070.8333 mls @ 90 mls/hr IVCONT DAILY@1800 [facility] Stop: 06/23/22 17:01 Last Admin: 06/22/22 17:58 Dose: 90 mls/hr Documented By: TOM Fat Emulsion Intravenous (Intralipid) 228 mls @ 19 mls/hr IVCONT BID@0600,1800 [facility] Stop: 06/23/22 17:59 Last Admin: 06/23/22 07:32 Dose: 19 mls/hr Documented By: ANTONY Magnesium Sulfate 10 meq/Potassium Phosphate 40 mmol/Calcium Gluconate 9.3 meq/Potassium Acetate 70 meq/Multivitamins 10 ml/ Trace Metals 1 ml/ Amino Acids/Electrolytes/Dextrose 2,081.8333 mls @ 90 mls/hr IVCONT DAILY@1800 [facility] Stop: 06/24/22 17:08 Fat Emulsion Intravenous (Intralipid) 228 mls @ 19 mls/hr IVCONT BID@0600,1800 [facility] Stop: 06/24/22 17:59 Insulin Human Lispro (Insulin Lispro 100 Unit/Ml 3 Ml Vial) 0 unit SUBCUT QIDACHS [facility]; Protocol Last Admin: 06/23/22 12:08 Dose: Not Given Documented By: TOM Non-Admin Reason: No Insulin Coverage Lidocaine (Lidocaine 4 % Patch Adh..Patch) 1 patch TRANSDERMA DAILY [facility]; Protocol Last Admin: 06/23/22 10:23 Dose: 1 patch Documented By: TOM Melatonin (Melatonin 3 Mg Tablet) 6 mg PO DAILY@1700 [facility] Last Admin: 06/22/22 16:20 Dose: 6 mg Documented By: TOM Omeprazole (Omeprazole 40 Mg Capsule.Dr) 40 mg PO BID@0630,1630 [facility] Last Admin: 06/23/22 06:02 Dose: Not Given Documented By: ANTONY Non-Admin Reason: Patient Refused Ondansetron HCl (Ondansetron Hcl 4 Mg/2 Ml Vial) 4 mg IVPUSH Q8H PRN PRN Reason: Nausea and Vomiting Pharmacy Consult (Consult Rx Perform Med Rec) 1 each MISCELLANE ONCE PRN PRN Reason: Consult order Potassium Chloride (Potassium Chloride Packet 20 Meq Packet) 40 meq PO BID [facility] Last Admin: 06/23/22 09:48 Dose: Not Given Documented By: TOM Non-Admin Reason: Patient Refused Sodium Chloride (0.9 % Sodium Chloride Flush 3 Ml Syringe) 3 ml IVFLUSH QSHIFT [facility] Last Admin: 06/23/22 08:44 Dose: Not Given Documented By: TOM Non-Admin Reason: IV Running Sodium Chloride (0.9 % Sodium Chloride Flush 10 Ml Syringe) 5 ml IVFLUSH TID [facility] Last Admin: 06/23/22 08:44 Dose: Not Given Documented By: TOM Non-Admin Reason: IV Running Sucralfate (Sucralfate 1 Gm Tablet) 1 gm PO QID [facility] Last Admin: 06/23/22 14:13 Dose: Not Given Documented By: TOM Non-Admin Reason: Patient Refused Labs 06/22/22 06:17 06/23/22 06:18 Labs: Laboratory Results - last 24 hr 06/22/22 06/23/22 06/23/22 16:04 06:18 06:18 Anion Gap 10 L Estim Creat Clear Calc 113.9 Estimated GFR > 60 POC Glucose 86 Random Glucose 199 H Calcium 6.9 L D Phosphorus 3.0 Magnesium 1.7 Albumin 2.7 L Triglycerides 89 06/23/22 06/23/22 07:52 11:14 Anion Gap Estim Creat Clear Calc Estimated GFR POC Glucose 186 H 180 H Random Glucose Calcium Phosphorus Magnesium Albumin Triglycerides Microbiology Microbiology Results: Microbiology 06/22/22 06:17 Blood Culture - Preliminary Blood - Venous No growth after 24 hours. 06/22/22 06:17 Blood Culture - Preliminary Blood - Venous No growth after 24 hours. 06/20/22 05:46 Blood Culture - Preliminary Blood - Venous No growth after 48 hours. 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 intake, low blood pressure found to h ave fever and probable recurrent UTI Staph EPI Bacteremia and Staph aureus UTI BCx 05/26 2/2 + for staph epidermidis, repeat cultures from 06/20 - 02/20 growing coag neg staph - likely contaminate. BCx from 06/22 negative to date Doxycycline for total 8 days ID following picc line removed, plan to place midline for PPN GE junction mass has outpatient appt at [facility] on 06/26 for surgical evaluation nutrition following monitor electrolytes full liquid diet as tolerated Picc line removed. will transition to PPN via peripheral line for now. plan for midline today left elbow swelling patient feels this is gout will obtain US to rule out dvt/infectious process Acute on chronic normocytic/iron def anemia s/p H/H trended down to 6.6/19.9 no gross bleeding observed, patient declining stool occult s/p 2 units PRBC with rise in HH iron infusion x2>iron 18/TIBC 127/%14 GI re-consult Seen by hematology> plan for EUS at [facility] on 06/26/22 Hypomagnesemia/hypokalemia/hypophosphatemia likely r/t to decreased po intake replace and follow levels- replacement for low phos, low mag Neck pain lidocaine patch warm compress as needed Severe sepsis secondary to UTI meets SIRS criteria with fever, tachycardia lactic acid 2.8, improved with IVF BP low - may be r/t dehydration from decreased PO intake in setting of GE junction mass received 3L bolus, total greater then 30cc/kg bolus with improvement in BP s/p IV ceftriaxone, started 06/15, now on IV doxycycline ID following acute on chronic thrombocytopenia has h/o ITP initially lower then baseline. likely in setting of acute infection discussed with hematology - rec platelet transfusion for plt <10 or active bleeding plt improved DM decreased PO intake ss, adjusted to start at 200 paraoxysmal AF carvedilol has been on hold, bp still soft not on AC due to thrombocytopenia Moderate protein calorie malnutrition BMI 21.4 nutrition following HTN hold bp meds for hypotension DISPO [facility] dvt ppx - mechanical devices due to thrombocytopenia code status - MOLST confirm DNR/DNI attending - Dr Bucio Requires ongoing stay in the hospital for management SIRS, UTI, hypotension req uiring IV fluids and close monitoring Time Spent With Patient Time: Total time managing care of this patient today ____ minutes. Quality Stroke Does the patient have a stroke diagnosis?: No VTE Prior VTE?: No VTE Risk Level:: Medical - moderate - high VTE Device Contraindication: N/A - Device Ordered VTE Drug Contraindication: Treatment Not Indicated
--- NOTE | 2022-06-23 14:44 | MHC.CM.PN ---
IF PPN will be running in the Ambulance on 06/26/2022, it will need to be ALS(Confirmed with Espinoza/Elizabeth).
--- NOTE | 2022-06-23 15:08 | MHC.CM.PN ---
ROLANDO/Shyann is speaking with LUCERO/Celia @ [facility] @ [phone] to discuss options as to how to get Patient to his appointment @ [facility] on 06/26/2022, including a discussion regarding the possibility of PPN being d/c'd on 06/25/2022 and then Patient would return to SNF on Sunday, go to his appointment from the SNF on Sunday and then return to SNF after the appointment at which time PPN would be restarted at [facility].Patient would need to be NPO for procedure on Sunday. CM will follow.
[2022-06-23 15:12] VITALS: BP 133/82; PULSE 76; RESP 14; TEMP 36.3; O2SAT 99
[2022-06-23 16:16] LABS: Glucose, Whole Blood 130 mg/dL (60-115)
--- NOTE | 2022-06-23 17:51 | PC.NURSE ---
06/23/22 Patient came to [id number] for a midline placement. two attempts by Roberto Hatfield RN followed by 2 attempts by this rn. Two attempts by this RN to the the left brachial vein was accessed and access needle clotted and I was unable to wire for the midline. No bleeding no hematoma noted. ROLANDO Carroll informed. Suggested to ROLANDO to book a PICC line with [facility] as an outpatient on 06/27/22. 1750 The patient was transported to his room.
[2022-06-23] MEDS: Doxycycline Hyclate 100 MG in 0.9 % Sodium Chloride 250 ML 166.67 MG IV (18:06)
[2022-06-23 20:26] LABS: Uric Acid 4.1 mg/dL (3.4-7.0)
[2022-06-23] MEDS: 0.9 % Sodium Chloride Flush 3 ML SYRINGE IVFLUSH (23:13)
[2022-06-24 07:28] VITALS: BP 129/59; PULSE 67; RESP 16; TEMP 36.2; O2SAT 100
--- NOTE | 2022-06-24 07:30 | PC.NURSE ---
pt alert and oriented x4, He refused meds, personal care and assessments. MD Virgen aware. Pt lost iv access, he was cooperative with attempts to restart but was unsuccessful on multiple attempts. pt asked if we could assist with toileting/changing brief, pt refused x1 and stated it was unneeded x1. he later asked for assist and was assisted with full care within 15 minutes with pt angrily stating he was sitting in urine for over 4 hours. He was calm after being cleansed and repositioned.
[2022-06-24 07:40] LABS: Glucose, Whole Blood 102 mg/dL (60-115)
[2022-06-24 08:25] LABS: Hematocrit 29.9 % (42.0-52.0); Hemoglobin 9.4 g/dl (14.0-18.0); Mean Corpuscular HGB Conc 31.4 g/dl (31.0-36.0); Mean Corpuscular Hemoglobin 29.8 pg (27.0-33.0); Mean Corpuscular Volume 94.9 fL (80.0-98.0); PLT CLUMP 1; Red Blood Count 3.15 X10*6/uL (4.60-5.80); Red Cell Distribution Width 16.2 % (11.0-16.0)
[2022-06-24 08:33] LABS: Anion Gap 13 (12-20); Blood Urea Nitrogen 7 mg/dL (9-16); Calcium 7.3 mg/dL (8.4-10.2); Carbon Dioxide 24 mmol/L (22-29); Chloride 108 mmol/L (96-108); Creatinine Clr Calc Pharmacy 121.8; Estimated Glomerular Filt Rate > 60; Glucose Random 103 mg/dL (60-115); Potassium 3.8 mmol/L (3.3-5.1); Sodium 141 mmol/L (135-145)
[2022-06-24 08:45] LABS: Platelet Count 47 X10*3/uL (160-400); White Blood Count 5.4 X10*3/uL (4.8-10.8)
[2022-06-24] MEDS: Lidocaine 4 % Patch ADH..PATCH 1 PATCH TRANSDERMA (09:14)
--- NOTE | 2022-06-24 10:16 | P.CONOP_ITS ---
History of Present Illness HPI Consult date: 06/24/22 Chief complaint: FEVER PMFSH Past Medical History Medical History Atrial fibrillation Blindness of left eye BPH (benign prostatic hyperplasia) CHF (congestive heart failure) Cirrhosis COPD (chronic obstructive pulmonary disease) Diabetes Diverticulosis Gallbladder sludge GERD (gastroesophageal reflux disease) History of COVID-19 Hypothyroid Major depression Osteoarthritis Resides in correction facility 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 Strain of left knee Thrombocytopenia Functional capacity: wheelchair bound Family History Family History Maternal Grandmother Diabetes Mother Diabetes Family history: reviewed and not pertinent Surgical History Surgical History History of esophagogastroduodenoscopy (EGD) Hx of colonoscopy Hx of eye surgery Social History Social History Household Members: None and Other Household Members Other:: intermediate Housing: Intermediate Housing Other:: [facility] Do you presently have visiting nurse or other home services: No Alcohol intake: never Patient Tobacco Use Status: Former Tobacco user Quit Date: 10 yrs ago Tobacco use type: Cigarette Years Smoked: quit 10 years ago Advance Directives Date on File: 02/20/20 service: No Current occupational status: retired Meds Allergies Allergy/AdvReac Type Severity Reaction Status Date / Time colchicine Allergy Unknown diarrhea Verified 05/17/22 13:56 Active Medications: Current Medications Acetaminophen (Acetaminophen 325 Mg Tablet) 650 mg PO Q6H PRN PRN Reason: pain, fever Last Admin: 06/22/22 09:09 Dose: 650 mg Albuterol Sulfate (Albuterol Sulfate 90 Mcg 8 Gm Inhaler) 1 puff INHALE Q6H PRN PRN Reason: Wheezing Colchicine (Colchicine 0.6 Mg Tablet) 0.3 mg PO Q48H XI Last Admin: 06/22/22 16:21 Dose: 0.3 mg Docusate Sodium (Docusate Sodium 100 Mg Capsule) 100 mg PO DAILY PRN PRN Reason: Constipation Erythromycin (Erythromycin Base 0.5% Oph Oin 1 Gm Tube) 1 cm EYE-LEFT MOTH@0900 [facility] Last Admin: 06/22/22 09:10 Dose: 1 cm Fluticasone Propionate (Fluticasone Propionate Nasal 16 Gm [place]) 2 spray NOSTRIL-B DAILY [facility] Last Admin: 06/24/22 09:06 Dose: Not Given Glucose (Glucose Gel 15 Gm Gel..Gram.) 15 gm PO Q15M PRN; Protocol PRN Reason: per Hypoglycemia Standing Ord. Dextrose (D10) 250 mls @ 750 mls/hr IV Q15M PRN; Protocol PRN Reason: per Hypoglycemia Standing Ord. Doxycycline Hyclate 100 mg/ (Sodium Chloride) 250 mls @ 166.67 mls/hr IV Q12H [facility] Stop: 06/29/22 14:59 Last Admin: 06/24/22 04:09 Dose: Not Given Magnesium Sulfate 10 meq/Potassium Phosphate 40 mmol/Calcium Gluconate 9.3 meq/Potassium Acetate 70 meq/Multivitamins 10 ml/ Trace Metals 1 ml/ Amino Aci ds/Electrolytes/Dextrose 2,081.8333 mls @ 90 mls/hr IVCONT DAILY@1800 [facility] Stop: 06/24/22 17:08 Last Admin: 06/24/22 04:12 Dose: Not Given Fat Emulsion Intravenous (Intralipid) 228 mls @ 19 mls/hr IVCONT BID@0600,1800 [facility] Stop: 06/24/22 17:59 Last Admin: 06/24/22 07:29 Dose: Not Given Insulin Human Lispro (Insulin Lispro 100 Unit/Ml 3 Ml Vial) 0 unit SUBCUT QIDACHS [facility]; Protocol Last Admin: 06/24/22 07:51 Dose: Not Given Lidocaine (Lidocaine 4 % Patch Adh..Patch) 1 patch TRANSDERMA DAILY [facility]; Protocol Last Admin: 06/24/22 09:14 Dose: 1 patch Melatonin (Melatonin 3 Mg Tablet) 6 mg PO DAILY@1700 [facility] Last Admin: 06/23/22 18:06 Dose: Not Given Nystatin (Nystatin Powder 15 Gm Bottle) 1 appl TOPICAL BID [facility]; Protocol Omeprazole (Omeprazole 40 Mg Capsule.Dr) 40 mg PO BID@0630,1630 [facility] Last Admin: 06/24/22 07:29 Dose: Not Given Ondansetron HCl (Ondansetron Hcl 4 Mg/2 Ml Vial) 4 mg IVPUSH Q8H PRN PRN Reason: Nausea and Vomiting Pharmacy Consult (Consult Rx Perform Med Rec) 1 each MISCELLANE ONCE PRN PRN Reason: Consult order Potassium Chloride (Potassium Chloride Packet 20 Meq Packet) 40 meq PO BID [facility] Last Admin: 06/24/22 09:06 Dose: Not Given Sodium Chloride (0.9 % Sodium Chloride Flush 3 Ml Syringe) 3 ml IVFLUSH QSHIFT [facility] Last Admin: 06/24/22 09:06 Dose: Not Given Sodium Chloride (0.9 % Sodium Chloride Flush 10 Ml Syringe) 5 ml IVFLUSH TID [facility] Last Admin: 06/24/22 09:06 Dose: Not Given Sucralfate (Sucralfate 1 Gm Tablet) 1 gm PO QID [facility] Last Admin: 06/24/22 09:06 Dose: Not Given Home Medications Medication Instructions Recorded Confirmed Last Taken Type carvedilol 12.5 mg tablet 1 tab PO BID@0800,1700 02/21/20 06/15/22 05/17/22 History citalopram 10 mg tablet 1 tab PO DAILY 02/21/20 06/15/22 05/17/22 History citalopram 20 mg tablet 1 tab PO DAILY 02/21/20 06/15/22 05/17/22 History hydroxyzine HCl 25 mg tablet 25 mg PO DAILY 02/21/20 06/15/22 05/16/22 History latanoprost 0.005 % eye drops 1 drp ophthalmic-Right DAILY@1700 02/21/20 06/15/22 05/15/22 History calcium carbonate 200 mg calcium 200 mg PO TID@0800,1200,1700 12/07/21 06/15/22 05/17/22 History (500 mg) chewable tablet (Calcium Antacid) cholecalciferol (vitamin D3) 1,250 1,250 mcg PO QMONTH 12/07/21 06/15/22 05/04/22 History mcg (50,000 unit) capsule erythromycin 5 mg/gram (0.5 %) eye 1 appl ophthalmic-Left MOTH@0900 12/07/21 06/15/22 05/15/22 History ointment insulin aspart U-100 100 unit/mL See Protocol subcut QIDACHS 12/07/21 06/15/22 Unknown History subcutaneous solution (Novolog U-100 Insulin aspart) insulin detemir U-100 100 unit/mL 10 unit subcut DAILY 12/07/21 06/15/22 05/16/22 History subcutaneous solution (Levemir U-100 Insulin) melatonin 5 mg tablet 5 mg PO DAILY@1700 12/07/21 06/15/22 05/15/22 History sucralfate 1 gram tablet 1 g PO QID 12/20/21 06/15/22 05/17/22 History glucagon 1 mg solution for 1 mg subcut Q20M PRN Hypoglycemia 03/28/22 06/15/22 Unknown History injection fluticasone propionate 50 2 spray intranasal DAILY 04/24/22 06/15/22 05/17/22 History mcg/actuation nasal spray,suspension albuterol sulfate 90 mcg/actuation 1 puff inhalation Q6H PRN Wheezing 06/15/22 06/15/22 Unknown History aerosol inhaler amino acid 4.25 % in 10 % dextrose 75 ea IV DAILY@0400,1600 06/15/22 06/15/22 06/14/22 History intravenous solution (Clinimix) Physical Exam Vital Signs: Vital Signs: Last Vital Signs Temp 97.2 F 06/24/22 07:28 Pulse 67 06/24/22 07:28 Resp 16 06/24/22 07:28 BP 129/59 L 06/24/22 07:28 Pulse Ox 100 06/24/22 07:28 O2 Del Method Room Air 06/24/22 07:28 BMI result Body Mass Index 21.4 Const: General: cooperative, healthy appearing and no acute distress Resp: Effort & Inspection: normal respiratory effort and able to speak in complete sentences Cardio: Rate: regular rate Peripheral pulses: Peripheral pulses 2+ throughout GI: Palpation (GI): Soft to palpation Skin: Lesions: no lesions Rashes: no rashes Extrem: Other: Right elbow no erythema, edema, or ecchymosis. Lacking 20 degrees of extension. Full flexion. Able to pronate and supinate. NVI. Results Labs 06/24/22 08:03 06/24/22 08:03 Labs: Abnormal lab results 06/23/22 06/23/22 06/24/22 Range/Units 11:14 16:04 08:03 RBC 3.15 L (4.60-5.80) X10*6/uL Hgb 9.4 L (14.0-18.0) g/dl Hct 29.9 L (42.0-52.0) % RDW 16.2 H (11.0-16.0) % Plt Count 47 L (160-400) X10*3/uL BUN (9-16) mg/dL POC Glucose 180 H 130 H (60-115) mg/dL Calcium (8.4-10.2) mg/dL 06/24/22 Range/Units 08:03 RBC (4.60-5.80) X10*6/uL Hgb (14.0-18.0) g/dl Hct (42.0-52.0) % RDW (11.0-16.0) % Plt Count (160-400) X10*3/uL BUN 7 L (9-16) mg/dL POC Glucose (60-115) mg/dL Calcium 7.3 L (8.4-10.2) mg/dL H & H 06/15/22 06/16/22 06/17/22 Range/Units 14:58 05:06 06:06 Hgb 9.4 L 8.2 L 7.3 L (14.0-18.0) g/dl Hct 27.7 L D 24.1 L 22.0 L (42.0-52.0) % 06/18/22 06/18/22 06/18/22 Range/Units 08:51 08:51 11:59 Hgb Cancelled 6.6 L* 7.7 L (14.0-18.0) g/dl Hct Cancelled 19.9 L* 23.2 L (42.0-52.0) % 06/19/22 06/20/22 06/21/22 Range/Units 06:14 05:46 05:42 Hgb 8.9 L 9.1 L 8.6 L (14.0-18.0) g/dl Hct 26.5 L 27.4 L 26.3 L (42.0-52.0) % 06/22/22 06/24/22 Range/Units 06:17 08:03 Hgb 10.5 L D 9.4 L (14.0-18.0) g/dl Hct 32.6 L D 29.9 L (42.0-52.0) % All other labs normal. Assessment and Plan (1) Gout of right elbow: Status: Acute Antiinflammatories for gout as appropriate X-rays reviewed of right elbow reveal no acute fracture or dislocation May use Cholchicine or Indomethacin for an acute attack No orthopedic intervention needed at this time Encourage gentle ROM Time Spent With Patient Time: Total time managing care of this patient today ____ minutes. Procedures Date of Service Date of Service: 06/24/22
--- NOTE | 2022-06-24 10:25 | P.PNIM_ITS ---
Subjective Subjective Date of Service: 06/24/22 Interval History: seen and examined this morning follow up for bacteremia, UTI lost IV access, midline unable to be placed yesterday right elbow swelling no fever, chills, no abdominal pain Review of Systems Review of Systems: Yes all other systems are reviewed and are negative Constitutional Constitutional: Denies chills and Denies fever(s) Cardiovascular Cardiovascular: Denies chest pain, Denies palpitations and Denies dyspnea Respiratory Respiratory: Denies dyspnea Gastrointestinal Gastrointestinal: Denies abdominal pain Endocrine Endocrine: Denies palpitations Physical Exam Vital Signs: Vital Signs: Last Vital Signs Temp 97.2 F 06/24/22 07:28 Pulse 67 06/24/22 07:28 Resp 16 06/24/22 07:28 BP 129/59 L 06/24/22 07:28 Pulse Ox 100 06/24/22 07:28 O2 Del Method Room Air 06/24/22 07:28 BMI result Body Mass Index 21.4 Const: General: cooperative, comfortable, alert and awake Nutritional Appearance: thin Orientation/consciousness: patient oriented x3 Eyes: Other: left eye blind Resp: Effort & Inspection: normal respiratory effort and able to speak in complete sentences Auscultation: clear to auscultation bilaterally Cardio: Rate: regular rate GI: Inspection: No distended Palpation (GI): Soft to palpation and nontender Neuro: General: patient oriented x3 and CN's II-XI intact bilaterally Extrem: Other: Able to move all 4 extremities spontaneously right elbow swelling, mild erythema, warmth General: Yes no pedal edema Objective Data Active Medications Acetaminophen (Acetaminophen 325 Mg Tablet) 650 mg PO Q6H PRN PRN Reason: pain, fever Last Admin: 06/22/22 09:09 Dose: 650 mg Documented By: TOM Albuterol Sulfate (Albuterol Sulfate 90 Mcg 8 Gm Inhaler) 1 puff INHALE Q6H PRN PRN Reason: Wheezing Colchicine (Colchicine 0.6 Mg Tablet) 0.3 mg PO Q48H [facility] Last Admin: 06/22/22 16:21 Dose: 0.3 mg Documented By: TOM Docusate Sodium (Docusate Sodium 100 Mg Capsule) 100 mg PO DAILY PRN PRN Reason: Constipation Erythromycin (Erythromycin Base 0.5% Oph Oin 1 Gm Tube) 1 cm EYE-LEFT MOTH@0900 [facility] Last Admin: 06/22/22 09:10 Dose: 1 cm Documented By: TOM Fluticasone Propionate (Fluticasone Propionate Nasal 16 Gm [place]) 2 spray NOSTRIL-B DAILY [facility] Last Admin: 06/24/22 09:06 Dose: Not Given Documented By: TOM Non-Admin Reason: Patient Refused Glucose (Glucose Gel 15 Gm Gel..Gram.) 15 gm PO Q15M PRN; Protocol PRN Reason: per Hypoglycemia Standing Ord. Dextrose (D10) 250 mls @ 750 mls/hr IV Q15M PRN; Protocol PRN Reason: per Hypoglycemia Standing Ord. Doxycycline Hyclate 100 mg/ (Sodium Chloride) 250 mls @ 166.67 mls/hr IV Q12H [facility] Stop: 06/29/22 14:59 Last Admin: 06/24/22 04:09 Dose: Not Given Documented By: OMAR Non-Admin Reason: no iv access , MD aware , pt refuse to get ne Magnesium Sulfate 10 meq/Potassium Phosphate 40 mmol/Calcium Gluconate 9.3 meq/Potassium Acetate 70 meq/Multivitamins 10 ml/ Trace Metals 1 ml/ Amino Acids/Electrolytes/Dextrose 2,081.8333 mls @ 90 mls/hr IVCONT DAILY@1800 [facility] Stop: 06/24/22 17:08 Last Admin: 06/24/22 04:12 Dose: Not Given Documented By: OMAR Non-[place] Reason: no iv access, pt refuse, md aware Fat Emulsion Intravenous (Intralipid) 228 mls @ 19 mls/hr IVCONT BID@0600,1800 [facility] Stop: 06/24/22 17:59 Last Admin: 06/24/22 07:29 Dose: Not Given Documented By: SILAS Non-Admin Reason: Medication Discontinued Insulin Human Lispro (Insulin Lispro 100 Unit/Ml 3 Ml Vial) 0 unit SUBCUT QIDACHS [facility]; Protocol Last Admin: 06/24/22 07:51 Dose: Not Given Documented By: TOM Non-Admin Reason: No Insulin Coverage Lidocaine (Lidocaine 4 % Patch Adh..Patch) 1 patch TRANSDERMA DAILY [facility]; Protocol Last Admin: 06/24/22 09:14 Dose: 1 patch Documented By: TOM Melatonin (Melatonin 3 Mg Tablet) 6 mg PO DAILY@1700 [facility] Last Admin: 06/23/22 18:06 Dose: Not Given Documented By: TOM Non-Admin Reason: Patient Refused Nystatin (Nystatin Powder 15 Gm Bottle) 1 appl TOPICAL BID [facility]; Protocol Omeprazole (Omeprazole 40 Mg Capsule.Dr) 40 mg PO BID@0630,1630 [facility] Last Admin: 06/24/22 07:29 Dose: Not Given Documented By: SILAS Non-Admin Reason: Patient Refused Ondansetron HCl (Ondansetron Hcl 4 Mg/2 Ml Vial) 4 mg IVPUSH Q8H PRN PRN Reason: Nausea and Vomiting Pharmacy Consult (Consult Rx Perform Med Rec) 1 each MISCELLANE ONCE PRN PRN Reason: Consult order Potassium Chloride (Potassium Chloride Packet 20 Meq Packet) 40 meq PO BID [facility] Last Admin: 06/24/22 09:06 Dose: Not Given Documented By: TOM Non-Admin Reason: Patient Refused Sodium Chloride (0.9 % Sodium Chloride Flush 3 Ml Syringe) 3 ml IVFLUSH QSHIFT [facility] Last Admin: 06/24/22 09:06 Dose: Not Given Documented By: TOM Non-Admin Reason: No Access Sodium Chloride (0.9 % Sodium Chloride Flush 10 Ml Syringe) 5 ml IVFLUSH TID [facility] Last Admin: 06/24/22 09:06 Dose: Not Given Documented By: TOM Non-Admin Reason: No Access Sucralfate (Sucralfate 1 Gm Tablet) 1 gm PO QID [facility] Last Admin: 06/24/22 09:06 Dose: Not Given Documented By: TOM Non-Admin Reason: Patient Refused Labs 06/24/22 08:03 06/24/22 08:03 Labs: Laboratory Results - last 24 hr 06/23/22 06/23/22 06/23/22 06:18 11:14 16:04 MCV MCH MCHC RDW Plt Count MPV Absolute Nucleated RBC Nucleated RBC % (auto) Anion Gap Estim Creat Clear Calc Estimated GFR POC Glucose 180 H 130 H Random Glucose Uric Acid 4.1 Calcium 06/24/22 06/24/22 06/24/22 07:26 08:03 08:03 MCV 94.9 MCH 29.8 MCHC 31.4 RDW 16.2 H Plt Count 47 L MPV Not Reportable Absolute Nucleated RBC 0.000 Nucleated RBC % (auto) 0.0 Anion Gap 13 Estim Creat Clear Calc 121.8 Estimated GFR > 60 POC Glucose 102 Random Glucose 103 Uric Acid Calcium 7.3 L Microbiology Microbiology Results: Microbiology 06/22/22 06:17 Blood Culture - Preliminary Blood - Venous No growth after 48 hours. 06/22/22 06:17 Blood Culture - Preliminary Blood - Venous No growth after 48 hours. 06/20/22 05:46 Blood Culture - Preliminary Blood - Venous No growth after 48 hours. 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 intake, low blood pressure found to have fever and probable recurrent UTI Staph EPI Bacteremia and Staph aureus UTI BCx 05/26 2/2 + for staph epidermidis, repeat cultures from 06/20 - 02/20 growing coag neg staph - likely contaminate. BCx from 06/22 negative to date Doxycycline for total 8 days (missed 06/21 due to no IV access) ID following picc line removed, plan to place midline for PPN - attempted but unsuccessful, will re-attempt on Sunday GE junction mass had outpatient appt at [facility] on 06/26 for surgical evaluation - this was cancelled by office. called [facility] for transfer - no beds nutrition following monitor electrolytes full liquid diet as tolerated - pt requsted Picc line removed. will transition to PPN via peripheral line for now. plan for midline today acute gout of right elbow seen by ortho po prednisone Acute on chronic normocytic/iron def anemia s/p H/H trended down to 6.6/19.9 no gross bleeding observed, patient declining stool occult s/p 2 units PRBC with rise in HH iron infusion x2>iron 18/TIBC 127/%14 GI re-consult Seen by hematology> plan for EUS at [facility] on 06/26/22 Hypomagnesemia/hypokalemia/hypophosphatemia likely r/t to decreased po intake replace and follow levels Neck pain lidocaine patch warm compress as needed Severe sepsis secondary to UTI met SIRS criteria with fever, tachycardia lactic acid 2.8, improved with IVF BP low - r/t dehydration from decreased PO intake in setting of GE junction mass received 3L bolus, total greater then 30cc/kg bolus with improvement in BP s/p IV ceftriaxone, started 06/15, now on IV doxycycline ID following acute on chronic thrombocytopenia has h/o ITP initially lower then baseline. likely in setting of acute infection discussed with hematology - rec platelet transfusion for plt <10 or active bleeding plt improved DM decreased PO intake ss, adjusted to start at 200 paraoxysmal AF carvedilol has been on hold, bp still soft not on AC due to thrombocytopenia Moderate protein calorie malnutrition BMI 21.4 nutrition following HTN hold bp meds for hypotension DISPO [facility] dvt ppx - mechanical devices due to thrombocytopenia code status - MOLST confirm DNR/DNI attending - Dr May Requires ongoing stay in the hospital for management of bacteremia, UTI, need for IV access for parental nutrition Time Spent With Patient Time: Total time managing care of this patient today ____ minutes. Quality Stroke Does the patient have a stroke diagnosis?: No VTE Prior VTE?: No VTE Risk Level:: Medical - moderate - high VTE Device Contraindication: N/A - Device Ordered VTE Drug Contraindication: Treatment Not Indicated
[2022-06-24] MEDS: oxyCODONE HCl Immed Release 5 MG TABLET PO (11:08)
[2022-06-24] MEDS: Pantoprazole Sodium 40 MG/10 ML VIAL IVPUSH (11:08)
[2022-06-24] MEDS: predniSONE 20 MG TABLET 40 MG PO (11:08)
[2022-06-24 11:17] LABS: Glucose, Whole Blood 89 mg/dL (60-115)
[2022-06-24 11:50] VITALS: BP 119/55; PULSE 74; RESP 19; TEMP 35.7; O2SAT 99
[2022-06-24] MEDS: Fat Emulsions 20% 250 ML 19 ML IVCONT ×2 (12:05→18:15)
[2022-06-24 12:10] LABS: Albumin Level 2.9 g/dL (3.5-5.0); Magnesium 1.7 mg/dL (1.6-2.6); Phosphorus 3.8 mg/dL (2.7-4.5)
[2022-06-24] MEDS: Nystatin Powder 15 GM BOTTLE 1 APPL TOPICAL (12:11)
--- NOTE | 2022-06-24 12:43 | MHC.CM.PN ---
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 ON SUNDAY, CM RECEIVED CALL BACK FROM [facility] CARTAGE[facility] WHO REPORTS PT'S APPT WAS CANCELLED YESTERDAY 06/23, HOSPITALIST CONFIRMED, CM WILL CONT TO FOLLOW D/C NEEDS.
[2022-06-24 15:14] VITALS: BP 129/62; PULSE 80; RESP 21; TEMP 36.7; O2SAT 98
[2022-06-24] MEDS: Colchicine 0.6 MG TABLET 0.3 MG PO (15:47)
[2022-06-24] MEDS: Doxycycline Hyclate 100 MG in 0.9 % Sodium Chloride 250 ML 166.6 MG IV (15:53)
[2022-06-24 16:24] LABS: Glucose, Whole Blood 204 mg/dL (60-115)
[2022-06-25] MEDS: Doxycycline Hyclate 100 MG in 0.9 % Sodium Chloride 250 ML 166.7 MG IV (04:00)
[2022-06-25 06:58] LABS: Triglycerides 74 mg/dL
[2022-06-25 07:04] LABS: Anion Gap 11 (12-20); Blood Urea Nitrogen 10 mg/dL (9-16); Calcium 7.4 mg/dL (8.4-10.2); Carbon Dioxide 28 mmol/L (22-29); Chloride 107 mmol/L (96-108); Creatinine Clr Calc Pharmacy 108.7; Estimated Glomerular Filt Rate > 60; Glucose Random 132 mg/dL (60-115); Potassium 3.8 mmol/L (3.3-5.1); Sodium 142 mmol/L (135-145)
--- NOTE | 2022-06-25 07:31 | PC.NURSE ---
pt unintentionally causing iv occlusion due to location of his hard won iv access/pressure on site. He had us stop the infusion of PPN due to beeping of pump. md aware. He continues to refuse much of his care d uring the night.
[2022-06-25 07:33] VITALS: BP 130/60; PULSE 77; RESP 20; TEMP 36.5; O2SAT 99
[2022-06-25 08:04] LABS: Glucose, Whole Blood 140 mg/dL (60-115)
[2022-06-25] MEDS: Pantoprazole Sodium 40 MG/10 ML VIAL IVPUSH (08:15)
[2022-06-25] MEDS: predniSONE 20 MG TABLET 40 MG PO (08:16)
[2022-06-25] MEDS: 0.9 % Sodium Chloride Flush 10 ML SYRINGE 5 ML IVFLUSH (08:16)
[2022-06-25] MEDS: Lidocaine 4 % Patch ADH..PATCH 1 PATCH TRANSDERMA ×2 (08:16→15:23)
[2022-06-25] MEDS: Fat Emulsions 20% 250 ML 19 ML IVCONT (08:18)
[2022-06-25] MEDS: Nystatin Powder 15 GM BOTTLE 1 APPL TOPICAL (08:22)
--- NOTE | 2022-06-25 10:29 | HO.PM.IMPN ---
Subjective Subjective Date of Service: 06/25/22 Interval History: seen and examined this morning follow up for bacteremia, UTI frustrated with being in the hospital right elbow feeling better this morning Review of Systems Review of Systems: Yes all other systems are reviewed and are negative Constitutional Constitutional: Denies chills and Denies fever(s) ENT Ears, Nose, Mouth, and Throat: Denies dizziness Cardiovascular Cardiovascular: Denies chest pain, Denies palpitations and Denies dyspnea Respiratory Respiratory: Denies cough and Denies dyspnea Gastrointestinal Gastrointestinal: Denies abdominal pain Neurologic Neurologic: Denies dizziness Endocrine Endocrine: Denies palpitations Physical Exam Vital Signs: Vital Signs: Last Vital Signs Temp 97.7 F 06/25/22 07:33 Pulse 77 06/25/22 07:33 Resp 20 06/25/22 07:33 BP 130/60 06/25/22 07:33 Pulse Ox 99 06/25/22 07:33 O2 Del Method Room Air 06/25/22 07:33 BMI result Body Mass Index 21.4 Const: General: cooperative, comfortable, alert and awake Nutritional Appearance: thin Orientation/consciousness: patient oriented x3 HEENT: Other: dry mucous membranes Eyes: Other: left eye blind Resp: Effort & Inspection: normal respiratory effort and able to speak in complete sentences Auscultation: clear to auscultation bilaterally Cardio: Rate: regular rate GI: Inspection: No distended Palpation (GI): Soft to palpation and nontender Neuro: General: patient oriented x3 and CN's II-XI intact bilaterally Extrem: Other: Able to move all 4 extremities spontaneously right elbow improvement in swelling and erythema General: Yes no pedal edema Objective Data Active Medications Acetaminophen (Acetaminophen 325 Mg Tablet) 650 mg PO Q6H PRN PRN Reason: pain, fever Last Admin: 06/22/22 09:09 Dose: 650 mg Documented By: TOM Albuterol Sulfate (Albuterol Sulfate 90 Mcg 8 Gm Inhaler) 1 puff INHALE Q6H PRN PRN Reason: Wheezing Colchicine (Colchicine 0.6 Mg Tablet) 0.3 mg PO Q48H [facility] Last Admin: 06/24/22 15:47 Dose: 0.3 mg Documented By: TOM Docusate Sodium (Docusate Sodium 100 Mg Capsule) 100 mg PO DAILY PRN PRN Reason: Constipation Erythromycin (Erythromycin Base 0.5% Oph Oin 1 Gm Tube) 1 cm EYE-LEFT MOTH@0900 [facility] Last Admin: 06/22/22 09:10 Dose: 1 cm Documented By: TOM Fluticasone Propionate (Fluticasone Propionate Nasal 16 Gm [place]) 2 spray NOSTRIL-B DAILY [facility] Last Admin: 06/25/22 07:45 Dose: Not Given Documented By: TOM Non-Admin Reason: Patient Refused Glucose (Glucose Gel 15 Gm Gel..Gram.) 15 gm PO Q15M PRN; Protocol PRN Reason: per Hypoglycemia Standing Ord. Dextrose (D10) 250 mls @ 750 mls/hr IV Q15M PRN; Protocol PRN Reason: per Hypoglycemia Standing Ord. Doxycycline Hyclate 100 mg/ (Sodium Chloride) 250 mls @ 166.67 mls/hr IV Q12H [facility] Stop: 06/29/22 14:59 Last Infusion: 06/25/22 05:47 Dose: 0 mls/hr Documented By: OMAR Magnesium Sulfate 10 meq/Potassium Phosphate 40 mmol/Calcium Gluconate 9.3 meq/Potassium Acetate 70 meq/Multivitamins 10 ml/ Trace Metals 1 ml/ Amino Acids/Electrolytes/Dextrose 2,081.8333 mls @ 90 mls/hr IVCONT DAILY@1800 [facility] Stop: 06/25/22 17:08 Last Infusion: 06/25/22 08:21 Dose: 90 mls/hr Documented By: TOM Fat Emulsion Intravenous (Intralipid) 228 mls @ 19 mls/hr IVCONT BID@0600,1800 [facility] Stop: 06/25/22 17:59 Last Admin: 06/25/22 08:18 Dose: 19 mls/hr Documented By: TOM Insulin Human Lispro (Insulin Lispro 100 Unit/Ml 3 Ml Vial) 0 unit SUBCUT QIDACHS [facility]; Protocol Last Admin: 06/25/22 07:52 Dose: Not Given Documented By: TOM Non-Admin Reason: No Insulin Coverage Lidocaine (Lidocaine 4 % Patch Adh..Patch) 1 patch TRANSDERMA DAILY [facility]; Protocol Last Admin: 06/25/22 08:16 Dose: 1 patch Documented By: TOM Melatonin (Melatonin 3 Mg Tablet) 6 mg PO DAILY@1700 [facility] Last Admin: 06/24/22 18:15 Dose: Not Given Documented By: TOM Non-Admin Reason: Patient Refused Nystatin (Nystatin Powder 15 Gm Bottle) 1 appl TOPICAL BID [facility]; Protocol Last Admin: 06/25/22 08:22 Dose: 1 appl Documented By: TOM Omeprazole (Omeprazole 40 Mg Capsule.Dr) 40 mg PO BID@0630,1630 [facility] Last Admin: 06/24/22 07:29 Dose: Not Given Documented By: SILAS Non-Admin Reason: Patient Refused Ondansetron HCl (Ondansetron Hcl 4 Mg/2 Ml Vial) 4 mg IVPUSH Q8H PRN PRN Reason: Nausea and Vomiting Pantoprazole Sodium (Pantoprazole Sodium 40 Mg/10 Ml Vial) 40 mg IVPUSH DAILY@0630 [facility] Last Admin: 06/25/22 08:15 Dose: 40 mg Documented By: TOM Pharmacy Consult (Consult Rx Perform Med Rec) 1 each MISCELLANE ONCE PRN PRN Reason: Consult order Potassium Chloride (Potassium Chloride Packet 20 Meq Packet) 40 meq PO BID [facility] Last Admin: 06/25/22 07:45 Dose: Not Given Documented By: TOM Non-Admin Reason: Patient Refused Prednisone (Prednisone 20 Mg Tablet) 40 mg PO DAILY [facility] Last Admin: 06/25/22 08:16 Dose: 40 mg Documented By: TOM Sodium Chloride (0.9 % Sodium Chloride Flush 3 Ml Syringe) 3 ml IVFLUSH QSHIFT [facility] Last Admin: 06/25/22 07:41 Dose: Not Given Documented By: TOM Non-Admin Reason: Duplicate Order Sodium Chloride (0.9 % Sodium Chloride Flush 10 Ml Syringe) 5 ml IVFLUSH TID [facility] Last Admin: 06/25/22 08:16 Dose: 5 ml Documented By: TOM Sucralfate (Sucralfate 1 Gm Tablet) 1 gm PO QID [facility] Last Admin: 06/25/22 07:45 Dose: Not Given Documented By: TOM Non-Admin Reason: Patient Refused Labs 06/24/22 08:03 06/25/22 06:20 Labs: Laboratory Results - last 24 hr 06/24/22 06/24/22 06/24/22 08:03 11:00 16:12 Anion Gap Estim Creat Clear Calc Estimated GFR POC Glucose 89 204 H Random Glucose Calcium Phosphorus 3.8 Magnesium 1.7 Albumin 2.9 L Triglycerides 06/25/22 06/25/22 06/25/22 06:20 06:20 07:34 Anion Gap 11 L Estim Creat Clear Calc 108.7 Estimated GFR > 60 POC Glucose 140 H Random Glucose 132 H Calcium 7.4 L Phosphorus Magnesium Albumin Triglycerides 74 Microbiology Microbiology Results: Microbiology 06/20/22 05:46 Blood Culture - Final Blood - Venous No growth after 5 days. 06/22/22 06:17 Blood Culture - Preliminary Blood - Venous No growth after 48 hours. 06/22/22 06:17 Blood Culture - Preliminary Blood - Venous No growth after 48 hours. 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 intake, low blood pressure found to have fever and probable recurrent UTI Staph EPI Bacteremia and Staph aureus UTI BCx 05/26 2/2 + for staph epidermidis, repeat cultures from 06/20 - 02/20 growing coag neg staph - likely contaminate. BCx from 06/22 negative to date Doxycycline for total 8 days (missed 06/21 due to no IV access) ID following picc line removed GE junction mass had outpatient appt at [facility] on 06/26 for surgical evaluation - this was cancelled by office called [facility] for transfer - no beds nutrition following monitor electrolytes full liquid diet as tolerated - pt requsted Picc line removed due to bactermia. getting PPN via peripheral line for now. plan to place midline for PPN on discharge- attempted but unsuccessful, will re-attempt on Sunday acute gout of right elbow seen by ortho po prednisone Acute on chronic normocytic/iron def anemia s/p H/H trended down to 6.6/19.9 no gross bleeding observed, patient declining stool occult s/p 2 units PRBC with rise in HH iron infusion x2>iron 18/TIBC 127/%14 GI re-consult Seen by hematology> plan for EUS at [facility] Hypomagnesemia/hypokalemia/hypophosphatemia likely r/t to decreased po intake replace and follow levels Neck pain lidocaine patch warm compress as needed Severe sepsis secondary to UTI met SIRS criteria with fever, tachycardia lactic acid 2.8, improved with IVF BP low - r/t dehydration from decreased PO intake in setting of GE junction mass received 3L bolus, total greater then 30cc/kg bolus with improvement in BP s/p IV ceftriaxone, started 06/15, now on IV doxycycline ID following acute on chronic thrombocytopenia has h/o ITP initially lower then baseline. likely in setting of acute infection discussed with hematology - rec platelet transfusion for plt <10 or active bleeding plt improved DM decreased PO intake SSI, adjusted to start at 200 paraoxysmal AF carvedilol has been on hold, bp still soft not on AC due to thrombocytopenia Moderate protein calorie malnutrition BMI 21.4 nutrition following HTN hold bp meds for hypotension DISPO [facility]line [facility] dvt ppx - mechanical devices due to thrombocytopenia code status - MOLST confirm DNR/DNI attending - Dr Pelletier GI ppx - IV ppi whle on steroids Requires ongoing stay in the hospital for management of bacteremia, UTI, need for IV access for parental nutrition Time Spent With Patient Time: Total time managing care of this patient today ____ minutes. Quality Stroke Does the patient have a stroke diagnosis?: No VTE Prior VTE?: No VTE Risk Level:: Medical - moderate - high VTE Device Contraindication: N/A - Device Ordered VTE Drug Contraindication: Treatment Not Indicated
[2022-06-25 10:55] VITALS: BP 124/57; PULSE 80; RESP 20; TEMP 36.3; O2SAT 100
[2022-06-25 11:41] LABS: Glucose, Whole Blood 156 mg/dL (60-115)
[2022-06-25 12:11] LABS: Magnesium 1.8 mg/dL (1.6-2.6); Phosphorus 3.6 mg/dL (2.7-4.5)
[2022-06-25] MEDS: Doxycycline Hyclate 100 MG in 0.9 % Sodium Chloride 250 ML 166.67 MG IV (15:23)
[2022-06-25 15:42] VITALS: BP 138/62; PULSE 72; RESP 19; TEMP 36.3; O2SAT 98
[2022-06-25 16:26] LABS: Glucose, Whole Blood 162 mg/dL (60-115)
--- NOTE | 2022-06-25 16:41 | PC.NURSE ---
Patient loss IV access. Refused to have new IV access placed, espite education given about the importance of IV medication and Parenteral nutrition. Shyann Pal notified.
[2022-06-25] MEDS: Melatonin 3 MG TABLET 6 MG PO (17:32)
[2022-06-25] MEDS: Doxycycline Monohydrate 100 MG CAPSULE PO (21:51)
--- NOTE | 2022-06-25 23:17 | PC.NURSE ---
Patient refused VS, POC, and medications. Patient only agreed to take antibiotics
[2022-06-26 07:03] VITALS: BP 118/56; PULSE 70; RESP 20; TEMP 36.6; O2SAT 98
[2022-06-26 07:57] LABS: Glucose, Whole Blood 102 mg/dL (60-115)
[2022-06-26] MEDS: Lidocaine 4 % Patch ADH..PATCH 1 PATCH TRANSDERMA (08:56)
[2022-06-26] MEDS: Erythromycin Base 0.5% Oph Oin 1 GM TUBE 1 CM EYE-LEFT (08:56)
[2022-06-26] MEDS: predniSONE 20 MG TABLET 40 MG PO (08:57)
[2022-06-26] MEDS: Nystatin Powder 15 GM BOTTLE 1 APPL TOPICAL (09:00)
--- NOTE | 2022-06-26 10:15 | MHC.CM.PN ---
Per ROUNDS discussion, Patient is eating and has no PPN at this time. Goal is to advance diet and dc back to SNF tomorrow. CM will follow.
--- NOTE | 2022-06-26 10:54 | MHC.CLN ---
F/U DISCUSSED WITH PHARMACY REVIEWED LABS PT LOST IV ACCESS AND MIDLINED PLANNED FOR SUNDAY PENDING DIET ADVANCED TO PUREED RE-STARTED ENSURE TID TO PROVIDE 1050KCALS, 60G PROTEIN IF PPN TO CONTINUE; RECOMMEND D10AA4.25 AT 90ML/HR WITH 19ML OF 20% LIPIDS TO PROVIDE 2013 TOTAL KCALS (28KCALS/KG), 92G PROTEIN (1.3G/KG) REPLETE LYTES NEEDED FOLLOWING WITH TEAM
--- NOTE | 2022-06-26 10:55 | P.PNIM_ITS ---
Subjective Subjective Date of Service: 06/26/22 Interval History: seen and examined this morning follow up for bacteremia, UTI frustrated with being in the hospital right elbow feeling better this morning Review of Systems Review of Systems: Yes all other systems are reviewed and are negative Constitutional Constitutional: Denies chills and Denies fever(s) ENT Ears, Nose, Mouth, and Throat: Denies dizziness Cardiovascular Cardiovascular: Denies chest pain, Denies palpitations and Denies dyspnea Respiratory Respiratory: Denies cough and Denies dyspnea Gastrointestinal Gastrointestinal: Denies abdominal pain Neurologic Neurologic: Denies dizziness Endocrine Endocrine: Denies palpitations Physical Exam Vital Signs: Vital Signs: Last Vital Signs Temp 97.8 F 06/26/22 07:03 Pulse 70 06/26/22 07:03 Resp 20 06/26/22 07:03 BP 118/56 L 06/26/22 07:03 Pulse Ox 98 06/26/22 07:03 O2 Del Method Room Air 06/26/22 07:03 BMI result Body Mass Index 21.4 Appearing in no acute distress lung sounds are clear to auscultation heart regular rate rhythm, clear S1, S2 positive bowel sounds, abdomen is soft, nontender neuro patient is alert x3, no focal deficits Objective Data Active Medications Acetaminophen (Acetaminophen 325 Mg Tablet) 650 mg PO Q6H PRN PRN Reason: pain, fever Last Admin: 06/22/22 09:09 Dose: 650 mg Documented By: TOM Albuterol Sulfate (Albuterol Sulfate 90 Mcg 8 Gm Inhaler) 1 puff INHALE Q6H PRN PRN Reason: Wheezing Colchicine (Colchicine 0.6 Mg Tablet) 0.3 mg PO Q48H [facility] Last Admin: 06/24/22 15:47 Dose: 0.3 mg Documented By: TOM Docusate Sodium (Docusate Sodium 100 Mg Capsule) 100 mg PO DAILY PRN PRN Reason: Constipation Doxycycline Monohydrate (Doxycycline Monohydrate 100 Mg Capsule) 100 mg PO Q12H [facility] Last Admin: 06/25/22 21:51 Dose: 100 mg Erythromycin (Erythromycin Base 0.5% Oph Oin 1 Gm Tube) 1 cm EYE-LEFT MOTH@0900 [facility] Last Admin: 06/26/22 08:56 Dose: 1 cm Documented By: BROB Fluticasone Propionate (Fluticasone Propionate Nasal 16 Gm [place]) 2 spray NOSTRIL-B DAILY [facility] Last Admin: 06/26/22 09:00 Dose: Not Given Documented By: ESHA Non-Admin Reason: Patient Refused Glucose (Glucose Gel 15 Gm Gel..Gram.) 15 gm PO Q15M PRN; Protocol PRN Reason: per Hypoglycemia Standing Ord. Dextrose (D10) 250 mls @ 750 mls/hr IV Q15M PRN; Protocol PRN Reason: per Hypoglycemia Standing Ord. Insulin Human Lispro (Insulin Lispro 100 Unit/Ml 3 Ml Vial) 0 unit SUBCUT QIDACHS [facility]; Protocol Last Admin: 06/26/22 07:59 Dose: Not Given Documented By: ESHA Non-Admin Reason: No Insulin Coverage Lidocaine (Lidocaine 4 % Patch Adh..Patch) 1 patch TRANSDERMA DAILY [facility]; Protocol Last Admin: 06/26/22 08:56 Dose: 1 patch Documented By: ESHA Melatonin (Melatonin 3 Mg Tablet) 6 mg PO DAILY@1700 [facility] Last Admin: 06/25/22 17:32 Dose: 6 mg Documented By: TOM Nystatin (Nystatin Powder 15 Gm Bottle) 1 appl TOPICAL BID [facility]; Protocol Last Admin: 06/26/22 09:00 Dose: 1 appl Documented By: ESHA Omeprazole (Omeprazole 40 Mg Capsule.Dr) 40 mg PO BID@0630,1630 [facility] Last Admin: 06/24/22 07:29 Dose: Not Given Documented By: SILAS Non-Admin Reason: Patient Refused Ondansetron HCl (Ondansetron Hcl 4 Mg/2 Ml Vial) 4 mg IVPUSH Q8H PRN PRN Reason: Nausea and Vomiting Pantoprazole Sodium (Pantoprazole Sodium 40 Mg/10 Ml Vial) 40 mg IVPUSH DAILY@0630 [facility] Last Admin: 06/26/22 05:42 Dose: Not Given Documented By: ANTONY Non-Admin Reason: No Access Pharmacy Consult (Consult Rx Perform Med Rec) 1 each MISCELLANE ONCE PRN PRN Reason: Consult order Potassium Chloride (Potassium Chloride Packet 20 Meq Packet) 40 meq PO BID [facility] Last Admin: 06/26/22 09:00 Dose: Not Given Documented By: ESHA Non-Admin Reason: Patient Refused Prednisone (Prednisone 20 Mg Tablet) 40 mg PO DAILY [facility] Last Admin: 06/26/22 08:57 Dose: 40 mg Documented By: ESHA Sodium Chloride (0.9 % Sodium Chloride Flush 3 Ml Syringe) 3 ml IVFLUSH QSHIFT [facility] Last Admin: 06/26/22 07:59 Dose: Not Given Documented By: ESHA Non-Admin Reason: No Access Sodium Chloride (0.9 % Sodium Chloride Flush 10 Ml Syringe) 5 ml IVFLUSH TID [facility] Last Admin: 06/26/22 07:59 Dose: Not Given Documented By: ESHA Non-Admin Reason: No Access Sucralfate (Sucralfate 1 Gm Tablet) 1 gm PO QID [facility] Last Admin: 06/26/22 09:00 Dose: Not Given Documented By: ESHA Non-Admin Reason: Patient Refused Labs 06/24/22 08:03 06/25/22 06:20 Labs: Laboratory Results - last 24 hr 06/25/22 06/25/22 06/25/22 06:20 10:55 16:20 POC Glucose 156 H 162 H Phosphorus 3.6 Magnesium 1.8 Albumin 3.0 L 06/26/22 07:02 POC Glucose 102 Phosphorus Magnesium Albumin Microbiology Microbiology Results: Microbiology 06/20/22 05:46 Blood Culture - Final Blood - Venous No growth after 5 days. 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 intake, low blood pressure found to have fever and probable recurrent UTI GE junction mass had outpatient appt at [facility] on 06/26 for surgical evaluation - this was cancelled by office , called [facility] for transfer - no beds nutrition following monitor electrolytes pureed diet add ensure plan to re-insert PICC line for TPN Staph EPI Bacteremia and Staph aureus UTI. Resolved BCx 05/26 2/2 + for staph epidermidis, repeat cultures from 06/20 - 02/20 growing coag neg staph - likely contaminate. BCx from 06/22 negative to date Doxycycline for total 8 days ID following picc line removed acute gout of right elbow seen by ortho po prednisone 7-10 days Acute on chronic normocytic/iron def anemia s/p H/H trended down to 6.6/19.9 no gross bleeding observed, patient declining stool occult s/p 2 units PRBC with rise in HH iron infusion x2>iron 18/TIBC 127/%14 Seen by hematology> plan for EUS at [facility] Hypomagnesemia/hypokalemia/hypophosphatemia likely r/t to decreased po intake replace and follow levels Neck pain lidocaine patch warm compress as needed Severe sepsis secondary to UTI met SIRS criteria with fever, tachycardia lactic acid 2.8, improved with IVF BP low - r/t dehydration from decreased PO intake in setting of GE junction mass received 3L bolus, total greater then 30cc/kg bolus with improvement in BP s/p IV ceftriaxone, started 06/15, now on IV doxycycline ID following acute on chronic thrombocytopenia has h/o ITP initially lower then baseline. likely in setting of acute infection discussed with hematology - rec platelet transfusion for plt <10 or active bleeding plt improved DM decreased PO intake SSI, adjusted to start at 200 paraoxysmal AF carvedilol has been on hold, bp still soft not on AC due to thrombocytopenia Moderate protein calorie malnutrition BMI 21.4 nutrition following HTN hold bp meds for hypotension DISPO plan for dc back to [facility] dvt ppx - mechanical devices due to thrombocytopenia code status - MOLST confirm DNR/DNI attending - Dr. Bucio Requires ongoing stay in the hospital for management of bacteremia, UTI, need for IV access for parental nutrition Time Spent With Patient Time: Total time managing care of this patient today ____ minutes. Quality Stroke Does the patient have a stroke diagnosis?: No VTE Prior VTE?: No VTE Risk Level:: Medical - moderate - high VTE Device Contraindication: N/A - Device Ordered VTE Drug Contraindication: Treatment Not Indicated
[2022-06-26 11:40] VITALS: BP 130/61; PULSE 68; RESP 20; TEMP 36.9; O2SAT 99
[2022-06-26 11:46] LABS: Glucose, Whole Blood 115 mg/dL (60-115)
[2022-06-26 15:49] VITALS: BP 137/60; PULSE 61; RESP 14; TEMP 36.2; O2SAT 98
[2022-06-26 17:09] LABS: Glucose, Whole Blood 218 mg/dL (60-115)
--- NOTE | 2022-06-26 20:14 | PC.NURSE ---
2015 Patient refusing all 2100 Meds , educated pt on compliance of taking medication.
[2022-06-26] MEDS: Melatonin 3 MG TABLET 6 MG PO (21:49)
[2022-06-27 05:17] LABS: Triglycerides 97 mg/dL
[2022-06-27 07:20] LABS: Glucose, Whole Blood 85 mg/dL (60-115)
[2022-06-27 07:46] VITALS: BP 130/58; PULSE 67; RESP 20; TEMP 36.3; O2SAT 100
--- NOTE | 2022-06-27 08:40 | MHC.CM.PN ---
Per SADIE/Yaquelin, Patient will be getting a PICC today and will be ready to return to [facility] tomorrow with TPN(CM has informed [facility] of anticipated dc tomorrow). CM will follow.
--- NOTE | 2022-06-27 09:11 | MHC.CLN ---
F/U DISCUSSED WITH PHARMACY REVIEWED LABS PICC LINE PLANNED FOR TODAY DIET RX: PUREED PO INTAKE 75-100% PT RECEIVING ENSURE TID TO PROVIDE 1050KCALS, 60G PROTEIN WITH 100% ACCEPTANCE WHEN PICC PLACED AND TPN TO RE-START; RECOMMEND D15AA5 AT 75ML/HR WITH 30ML OF 20% LIPIDS TO PROVIDE 1998 TOTAL KCALS (28KCALS/KG), 90G PROTEIN (1.2G/KG) REPLETE LYTES NEEDED
[2022-06-27 11:22] LABS: Triglycerides 115 mg/dL
[2022-06-27 11:24] LABS: Anion Gap 11 (12-20); Blood Urea Nitrogen 12 mg/dL (9-16); Calcium 7.4 mg/dL (8.4-10.2); Carbon Dioxide 32 mmol/L (22-29); Chloride 106 mmol/L (96-108); Creatinine Clr Calc Pharmacy 105.4; Estimated Glomerular Filt Rate > 60; Glucose Random 89 mg/dL (60-115); Potassium 3.5 mmol/L (3.3-5.1); Sodium 145 mmol/L (135-145)
[2022-06-27 11:26] LABS: Albumin Level 3.2 g/dL (3.5-5.0); Magnesium 1.6 mg/dL (1.6-2.6); Phosphorus 4.2 mg/dL (2.7-4.5)
[2022-06-27 11:44] VITALS: BP 117/59; PULSE 73; RESP 19; TEMP 36.1; O2SAT 100
[2022-06-27 11:46] LABS: Glucose, Whole Blood 93 mg/dL (60-115)
--- NOTE | 2022-06-27 13:37 | P.PNIM_ITS ---
Subjective Subjective Date of Service: 06/27/22 Interval History: seen and examined this morning follow up for bacteremia, UTI frustrated with being in the hospital right elbow feeling better this morning Review of Systems Review of Systems: Yes all other systems are reviewed and are negative Constitutional Constitutional: Denies chills and Denies fever(s) ENT Ears, Nose, Mouth, and Throat: Denies dizziness Cardiovascular Cardiovascular: Denies chest pain, Denies palpitations and Denies dyspnea Respiratory Respiratory: Denies cough and Denies dyspnea Gastrointestinal Gastrointestinal: Denies abdominal pain Neurologic Neurologic: Denies dizziness Endocrine Endocrine: Denies palpitations Physical Exam Vital Signs: Vital Signs: Last Vital Signs Temp 97.0 F 06/27/22 11:44 Pulse 73 06/27/22 11:44 Resp 19 06/27/22 11:44 BP 117/59 L 06/27/22 11:44 Pulse Ox 100 06/27/22 11:44 O2 Del Method Room Air 06/27/22 11:44 BMI result Body Mass Index 21.4 Appearing in no acute distress lung sounds are clear to auscultation heart regular rate rhythm, clear S1, S2 positive bowel sounds, abdomen is soft, nontender neuro patient is alert x3, no focal deficits Objective Data Active Medications Acetaminophen (Acetaminophen 325 Mg Tablet) 650 mg PO Q6H PRN PRN Reason: pain, fever Last Admin: 06/22/22 09:09 Dose: 650 mg Documented By: TOM Albuterol Sulfate (Albuterol Sulfate 90 Mcg 8 Gm Inhaler) 1 puff INHALE Q6H PRN PRN Reason: Wheezing Colchicine (Colchicine 0.6 Mg Tablet) 0.3 mg PO Q48H [facility] Last Admin: 06/26/22 16:52 Dose: Not Given Documented By: ESHA Non-Admin Reason: Patient Refused Docusate Sodium (Docusate Sodium 100 Mg Capsule) 100 mg PO DAILY PRN PRN Reason: Constipation Doxycycline Monohydrate (Doxycycline Monohydrate 100 Mg Capsule) 100 mg PO Q12H [facility] Last Admin: 06/27/22 10:56 Dose: Not Given Documented By: MANDY Non-Admin Reason: Patient Refused Erythromycin (Erythromycin Base 0.5% Oph Oin 1 Gm Tube) 1 cm EYE-LEFT MOTH@0900 [facility] Last Admin: 06/26/22 08:56 Dose: 1 cm Documented By: BROVidal Fluticasone Propionate (Fluticasone Propionate Nasal 16 Gm [place]) 2 spray NOSTRIL-B DAILY [facility] Last Admin: 06/27/22 09:25 Dose: Not Given Documented By: MANDY Non-Admin Reason: Patient Refused Glucose (Glucose Gel 15 Gm Gel..Gram.) 15 gm PO Q15M PRN; Protocol PRN Reason: per Hypoglycemia Standing Ord. Dextrose (D10) 250 mls @ 750 mls/hr IV Q15M PRN; Protocol PRN Reason: per Hypoglycemia Standing Ord. Magnesium Sulfate 10 meq/Potassium Phosphate 40 mmol/Calcium Gluconate 9.3 meq/Potassium Acetate 70 meq/Amino Acids/Dextrose 1,800 mls @ 75 mls/hr IV DAILY@1800 [facility] Stop: 06/28/22 17:59 Fat Emulsion Intravenous (Intralipid) 180 mls @ 30 mls/hr IV DAILY@0000,1800 [facility] Stop: 06/29/22 05:59 Insulin Human Lispro (Insulin Lispro 100 Unit/Ml 3 Ml Vial) 0 unit SUBCUT QIDACHS [facility]; Protocol Last Admin: 06/27/22 11:48 Dose: Not Given Documented By: MANDY Non-Admin Reason: No Insulin Coverage Lidocaine (Lidocaine 4 % Patch Adh..Patch) 1 patch TRANSDERMA DAILY [facility]; Protocol Last Admin: 06/27/22 09:25 Dose: Not Given Documented By: MANDY Non-Admin Reason: pt off unit Melatonin (Melatonin 3 Mg Tablet) 6 mg PO DAILY@1700 [facility] Last Admin: 06/26/22 21:49 Dose: 6 mg Documented By: ANTONY Comments: unscheduled Nystatin (Nystatin Powder 15 Gm Bottle) 1 appl TOPICAL BID [facility]; Protocol Last Admin: 06/27/22 09:25 Dose: Not Given Documented By: MANDY Non-Admin Reason: Patient Refused Omeprazole (Omeprazole 40 Mg ) 40 mg PO BID@0630,1630 [facility] Last Admin: 06/24/22 07:29 Dose: Not Given Documented By: SILAS Non-Admin Reason: Patient Refused Ondansetron HCl (Ondansetron Hcl 4 Mg/2 Ml Vial) 4 mg IVPUSH Q8H PRN PRN Reason: Nausea and Vomiting Pharmacy Consult (Consult Rx Perform Med Rec) 1 each MISCELLANE ONCE PRN PRN Reason: Consult order Potassium Chloride (Potassium Chloride Packet 20 Meq Packet) 40 meq PO BID [facility] Last Admin: 06/27/22 09:26 Dose: Not Given Documented By: MANDY Non-Admin Reason: Patient Refused Prednisone (Prednisone 20 Mg Tablet) 40 mg PO DAILY [facility] Last Admin: 06/27/22 09:26 Dose: Not Given Documented By: MANDY Non-Admin Reason: Patient Refused Sodium Chloride (0.9 % Sodium Chloride Flush 3 Ml Syringe) 3 ml IVFLUSH QSHIFT [facility] Last Admin: 06/27/22 09:16 Dose: Not Given Documented By: MANDY Non-Admin Reason: No Access Sodium Chloride (0.9 % Sodium Chloride Flush 10 Ml Syringe) 5 ml IVFLUSH TID [facility] Last Admin: 06/27/22 09:25 Dose: Not Given Documented By: MANDY Non-Admin Reason: No Access Sucralfate (Sucralfate 1 Gm Tablet) 1 gm PO QID [facility] Last Admin: 06/27/22 13:14 Dose: Not Given Documented By: MANDY Non-Admin Reason: Patient Refused Labs 06/24/22 08:03 06/27/22 10:50 Labs: Laboratory Results - last 24 hr 06/26/22 06/27/22 06/27/22 16:56 04:35 07:15 Anion Gap Estim Creat Clear Calc Estimated GFR POC Glucose 218 H 85 Random Glucose Calcium Phosphorus Magnesium Albumin Triglycerides 97 06/27/22 06/27/22 06/27/22 10:50 10:50 10:50 Anion Gap 11 L Estim Creat Clear Calc 105.4 Estimated GFR > 60 POC Glucose Random Glucose 89 Calcium 7.4 L Phosphorus 4.2 Magnesium 1.6 Albumin 3.2 L Triglycerides 115 06/27/22 11:42 Anion Gap Estim Creat Clear Calc Estimated GFR POC Glucose 93 Random Glucose Calcium Phosphorus Magnesium Albumin Triglycerides Microbiology Microbiology Results: Microbiology 06/22/22 06:17 Blood Culture - Final Blood - Venous No growth after 5 days. 06/22/22 06:17 Blood Culture - Final Blood - Venous No growth after 5 days. 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 intake, low blood pressure found to have fever and probable recurrent UTI GE junction mass had outpatient appt at [facility] on 06/26 for surgical evaluation - this was cancelled by office , called [facility] for transfer - no beds nutrition following monitor electrolytes pureed diet add ensure Picc line placed, resume TPN Staph EPI Bacteremia and Staph aureus UTI. Resolved BCx 05/26 2/2 + for staph epidermidis, repeat cultures from 06/20 - 02/20 growing coag neg staph - likely contaminate. BCx from 06/22 negative to date Doxycycline for total 7 days ID following picc line removed and re-inserted after neg blood cx acute gout of right elbow seen by ortho po prednisone 7 days total Acute on chronic normocytic/iron def anemia s/p H/H trended down to 6.6/19.9 no gross bleeding observed, patient declining stool occult s/p 2 units PRBC with rise in HH iron infusion x2>iron 18/TIBC 127/%14 Seen by hematology> plan for EUS at [facility], apt for 06/26/22 cancelled, awaiting new apt date Hypomagnesemia/hypokalemia/hypophosphatemia likely r/t to decreased po intake replace and follow levels Neck pain lidocaine patch warm compress as needed Severe sepsis secondary to UTI met SIRS criteria with fever, tachycardia lactic acid 2.8, improved with IVF BP low - r/t dehydration from decreased PO intake in setting of GE junction mass received 3L bolus, total greater then 30cc/kg bolus with improvement in BP s/p IV ceftriaxone, started 06/15, now on IV doxycycline total 7 days ID following acute on chronic thrombocytopenia has h/o ITP initially lower then baseline. likely in setting of acute infection discussed with hematology - rec platelet transfusion for plt <10 or active bleeding plt improved DM decreased PO intake SSI, adjusted to start at 200 paraoxysmal AF carvedilol has been on hold, bp still soft not on AC due to thrombocytopenia Moderate protein calorie malnutrition BMI 21.4 nutrition following HTN hold bp meds for hypotension DISPO plan for dc back [facility] with picc line and TPN dvt ppx - mechanical devices due to thrombocytopenia code status - MOLST confirm DNR/DNI attending - Dr. Bucio Requires ongoing stay in the hospital for management of bacteremia, UTI, need for IV access for parental nutrition Time Spent With Patient Time: Total time managing care of this patient today ____ minutes. Quality Stroke Does the patient have a stroke diagnosis?: No VTE Prior VTE?: No VTE Risk Level:: Medical - moderate - high VTE Device Contraindication: N/A - Device Ordered VTE Drug Contraindication: Treatment Not Indicated
[2022-06-27] MEDS: 0.9 % Sodium Chloride Flush 10 ML SYRINGE 5 ML IVFLUSH (13:51)
[2022-06-27 15:18] VITALS: BP 140/73; PULSE 64; RESP 14; TEMP 36.2; O2SAT 99
[2022-06-27 16:27] LABS: Glucose, Whole Blood 92 mg/dL (60-115)
[2022-06-27] MEDS: Fat Emulsions 20% 250 ML 30 ML IV (19:40)
--- NOTE | 2022-06-27 21:44 | PC.NURSE ---
Patient refusing 2100 bedtime medications; potassium chloride packet 40meq, sucralfate 1gm, vibramycin 100mg, nystatin powder. Patient also refusing poc and vitals at this time, Dr. Yousif notified.
[2022-06-27 23:26] VITALS: RESP 19
[2022-06-27] MEDS: 0.9 % Sodium Chloride Flush 3 ML SYRINGE IVFLUSH (23:38)
[2022-06-28] MEDS: Fat Emulsions 20% 250 ML 30 ML IV (02:31)
[2022-06-28 04:00] VITALS: RESP 19
[2022-06-28 07:15] VITALS: BP 105/49; PULSE 68; RESP 20; TEMP 36.6; O2SAT 100
[2022-06-28 07:48] LABS: Glucose, Whole Blood 214 mg/dL (60-115)
[2022-06-28 08:06] LABS: Albumin Level 3.1 g/dL (3.5-5.0); Anion Gap 14 (12-20); Blood Urea Nitrogen 11 mg/dL (9-16); Calcium 7.4 mg/dL (8.4-10.2); Carbon Dioxide 29 mmol/L (22-29); Chloride 104 mmol/L (96-108); Creatinine Clr Calc Pharmacy 100.9; Estimated Glomerular Filt Rate > 60; Glucose Random 209 mg/dL (60-115); Magnesium 1.7 mg/dL (1.6-2.6); Phosphorus 4.8 mg/dL (2.7-4.5); Potassium 4.5 mmol/L (3.3-5.1); Sodium 142 mmol/L (135-145)
--- NOTE | 2022-06-28 08:08 | PC.NURSE ---
pt A&O x 3. POC of 214 and is refusing insulin coverage. this nurse tried to educate on why insulin coverage is needed due to pt having multiple lolipops and being on TNP. pt refuses to listen and adamant about refusing insulin. notified.
[2022-06-28] MEDS: Lidocaine 4 % Patch ADH..PATCH 1 PATCH TRANSDERMA (08:10)
[2022-06-28 09:21] LABS: Triglycerides 227 mg/dL
--- NOTE | 2022-06-28 09:54 | MHC.CLN ---
F/U DISCUSSED WITH PHARMACY REVIEWED LABS PT RECEIVING D15AA5 AT 75ML/HR WITH 30ML OF 20% LIPIDS TO PROVIDE 1998 TOTAL KCALS (28KCALS/KG), 90G PROTEIN (1.2G/KG) REPLETE LYTES NEEDED PT REFUSING MOST PO MEDICATIONS DIET RX: PUREED-APPROPRIATE PO INTAKE VARIABLE PT RECEIVING ENSURE TID TO PROVIDE 1050KCALS, 60G PROTEIN WITH 100% ACCEPTANCE CONTINUE STRICT PO INTAKE MONITORING AND WEEKLY WEIGHTS
[2022-06-28 09:56] VITALS: BMI 23.0
[2022-06-28 11:03] VITALS: BP 125/53; PULSE 87; RESP 20; TEMP 36.6; O2SAT 100
[2022-06-28 11:43] LABS: Glucose, Whole Blood 191 mg/dL (60-115)
--- NOTE | 2022-06-28 15:21 | P.PNIM_ITS ---
Subjective Subjective Date of Service: 06/28/22 Interval History: pain controlled wants to go back to [facility] awaiting to hear back from them re: TPN Review of Systems Review of Systems: Yes all other systems are reviewed and are negative Physical Exam Vital Signs: Vital Signs: Last Vital Signs Temp 97.8 F 06/28/22 11:03 Pulse 87 06/28/22 11:03 Resp 20 06/28/22 11:03 BP 125/53 L 06/28/22 11:03 Pulse Ox 100 06/28/22 11:03 O2 Del Method Room Air 06/28/22 11:03 BMI result Body Mass Index 23.0 Gen: in no acute distress HEENT: sclera anicteric, L eye blind, moist mucus membranes Neck: supple Lungs: clear to auscultation bilaterally Heart: regular rate and rhythm, no murmurs Abd: soft, non-tender, non-distended Ext: no edema, RUE PICC Skin: warm/well-perfused Neuro: alert and oriented x3, no focal findings Psych: appropriate affect Objective Data Active Medications Acetaminophen (Acetaminophen 325 Mg Tablet) 650 mg PO Q6H PRN PRN Reason: pain, fever Last Admin: 06/22/22 09:09 Dose: 650 mg Documented By: TOM Albuterol Sulfate (Albuterol Sulfate 90 Mcg 8 Gm Inhaler) 1 puff INHALE Q6H PRN PRN Reason: Wheezing Colchicine (Colchicine 0.6 Mg Tablet) 0.3 mg PO Q48H [facility] Last Admin: 06/26/22 16:52 Dose: Not Given Documented By: ESHA Non-Admin Reason: Patient Refused Docusate Sodium (Docusate Sodium 100 Mg Capsule) 100 mg PO DAILY PRN PRN Reason: Constipation Doxycycline Monohydrate (Doxycycline Monohydrate 100 Mg Capsule) 100 mg PO Q12H [facility] Last Admin: 06/28/22 11:03 Dose: Not Given Documented By: MANDY Non-Admin Reason: Patient Refused Erythromycin (Erythromycin Base 0.5% Oph Oin 1 Gm Tube) 1 cm EYE-LEFT MOTH@0900 [facility] Last Admin: 06/26/22 08:56 Dose: 1 cm Documented By: ESHA Fluticasone Propionate (Fluticasone Propionate Nasal 16 Gm [place]) 2 spray NOSTRIL-B DAILY [facility] Last Admin: 06/28/22 09:18 Dose: Not Given Documented By: MANDY Non-Admin Reason: pt refused Glucose (Glucose Gel 15 Gm Gel..Gram.) 15 gm PO Q15M PRN; Protocol PRN Reason: per Hypoglycemia Standing Ord. Dextrose (D10) 250 mls @ 750 mls/hr IV Q15M PRN; Protocol PRN Reason: per Hypoglycemia Standing Ord. Magnesium Sulfate 10 meq/Potassium Phosphate 40 mmol/Calcium Gluconate 9.3 meq/Potassium Acetate 70 meq/Amino Acids/Dextrose 1,800 mls @ 75 mls/hr IV DAILY@1800 [facility] Stop: 06/28/22 17:59 Last Admin: 06/27/22 18:38 Dose: 75 mls/hr Documented By: MANDY Potassium Chloride 40 meq/Magnesium Sulfate 10 meq/Calcium Gluconate 18.6 meq/Potassium Acetate 70 meq/Multivitamins 10 ml/ Trace Metals 1 ml/ Amino Acids/Dextrose 1,800 mls @ 75 mls/hr IV DAILY@1800 [facility] Stop: 06/29/22 17:59 Fat Emulsion Intravenous (Intralipid) 180 mls @ 30 mls/hr IV DAILY@0000,1800 [facility] Stop: 06/29/22 05:59 Insulin Human Lispro (Insulin Lispro 100 Unit/Ml 3 Ml Vial) 0 unit SUBCUT QIDACHS [facility]; Protocol Last Admin: 06/28/22 11:45 Dose: Not Given Documented By: MANDY Non-Admin Reason: No Insulin Coverage Lidocaine (Lidocaine 4 % Patch Adh..Patch) 1 patch TRANSDERMA DAILY [facility]; Protocol Last Admin: 06/28/22 08:10 Dose: 1 patch Documented By: MANDY Melatonin (Melatonin 3 Mg Tablet) 6 mg PO DAILY@1700 [facility] Last Admin: 06/26/22 21:49 Dose: 6 mg Documented By: ANTONY Comments: unscheduled Nystatin (Nystatin Powder 15 Gm Bottle) 1 appl TOPICAL BID [facility]; Protocol Last Admin: 06/28/22 09:18 Dose: Not Given Documented By: MANDY Non-Admin Reason: pt refused Omeprazole (Omeprazole 40 Mg [place].) 40 mg PO BID@0630,1630 [facility] Last Admin: 06/24/22 07:29 Dose: Not Given Documented By: SILAS Non-Admin Reason: Patient Refused Ondansetron HCl (Ondansetron Hcl 4 Mg/2 Ml Vial) 4 mg IVPUSH Q8H PRN PRN Reason: Nausea and Vomiting Pharmacy Consult (Consult Rx Perform Med Rec) 1 each MISCELLANE ONCE PRN PRN Reason: Consult order Potassium Chloride (Potassium Chloride Packet 20 Meq Packet) 40 meq PO BID [facility] Last Admin: 06/28/22 09:18 Dose: Not Given Documented By: MANDY Non-Admin Reason: pt refused Prednisone (Prednisone 20 Mg Tablet) 40 mg PO DAILY [facility] Last Admin: 06/28/22 09:18 Dose: Not Given Documented By: MANDY Non-Admin Reason: pt refused Sodium Chloride (0.9 % Sodium Chloride Flush 3 Ml Syringe) 3 ml IVFLUSH QSHIFT [facility] Last Admin: 06/28/22 08:10 Dose: Not Given Documented By: MANDY Non-Admin Reason: IV Running Sodium Chloride (0.9 % Sodium Chloride Flush 10 Ml Syringe) 5 ml IVFLUSH TID [facility] Last Admin: 06/28/22 09:18 Dose: Not Given Documented By: MANDY Non-Admin Reason: IV Running Sucralfate (Sucralfate 1 Gm Tablet) 1 gm PO QID [facility] Last Admin: 06/28/22 13:10 Dose: Not Given Documented By: MANDY Non-Admin Reason: Patient Refused Labs 06/24/22 08:03 06/28/22 07:34 Labs: Laboratory Results - last 24 hr 06/27/22 06/28/22 06/28/22 16:21 07:34 07:44 Anion Gap 14 Estim Creat Clear Calc 100.9 Estimated GFR > 60 POC Glucose 92 214 H Random Glucose 209 H Calcium 7.4 L Phosphorus 4.8 H Magnesium 1.7 Albumin 3.1 L Triglycerides 227 06/28/22 11:33 Anion Gap Estim Creat Clear Calc Estimated GFR POC Glucose 191 H Random Glucose Calcium Phosphorus Magnesium Albumin Triglycerides Assessment and Plan (1) Gout of right elbow: Status: Acute (2) Bacteremia: Status: Acute (3) Esophageal mass: Status: Acute Plan d#14 67-year-old male with history of diabetes, 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 intake, low blood pressure found to have fever and probable recurrent UTI GE junction mass had outpatient appt at [facility] on 06/26 for surgical evaluation - this was cancelled by office , called [facility] for transfer - no beds nutrition following monitor electrolytes pureed diet add ensure Picc line placed, resume TPN Staph EPI Bacteremia and Staph aureus UTI. Resolved BCx 05/26 2/2 + for staph epidermidis, repeat cultures from 06/20 - 02/20 growing coag neg staph - likely contaminate. BCx from 06/22 negative to date Doxycycline for total 7 days ID following picc line removed and re-inserted after neg blood cx acute gout of right elbow seen by ortho po prednisone 7 days total Acute on chronic normocytic/iron def anemia s/p H/H trended down to 6.6/19.9 no gross bleeding observed, patient declining stool occult s/p 2 units PRBC with rise in HH iron infusion x2>iron 18/TIBC 127/%14 Seen by hematology> plan for EUS at [facility], apt for 06/26/22 cancelled, awaiting new apt date Hypomagnesemia/hypokalemia/hypophosphatemia likely r/t to decreased po intake replace and follow levels Neck pain lidocaine patch warm compress as needed Severe sepsis secondary to UTI met SIRS criteria with fever, tachycardia lactic acid 2.8, improved with IVF BP low - r/t dehydration from decreased PO intake in setting of GE junction mass received 3L bolus, total greater then 30cc/kg bolus with improvement in BP s/p IV ceftriaxone, started 06/15, now on IV doxycycline total 7 days ID following acute on chronic thrombocytopenia has h/o ITP initially lower then baseline. likely in setting of acute infection discussed with hematology - rec platelet transfusion for plt <10 or active bleeding plt improved DM decreased PO intake SSI, adjusted to start at 200 paraoxysmal AF carvedilol has been on hold, bp still soft not on AC due to thrombocytopenia Moderate protein calorie malnutrition BMI 21.4 nutrition following HTN hold bp meds for hypotension DISPO [facility] and TPN dvt ppx - mechanical devices due to thrombocytopenia code status - MOLST confirm DNR/DNI Requires ongoing stay in the hospital for management of bacteremia, UTI, need for IV access for parental nutrition Time Spent With Patient Time: Total time managing care of this patient today __35__ minutes. Quality Stroke Does the patient have a stroke diagnosis?: No VTE Prior VTE?: No VTE Risk Level:: Medical - moderate - high VTE Device Contraindication: N/A - Device Ordered VTE Drug Contraindication: Treatment Not Indicated
[2022-06-28 15:25] VITALS: BP 116/54; PULSE 81; RESP 14; TEMP 36.4; O2SAT 100
[2022-06-28] MEDS: Colchicine 0.6 MG TABLET 0.3 MG PO (15:42)
--- NOTE | 2022-06-28 15:48 | MHC.CM.PN ---
Patient is not able to return to [facility] today (issues with SNF Pharmacy and TPN delivery)MD has been made aware, along with CM/Director.
[2022-06-28 16:07] LABS: COVID-19 Test Negative (Negative); IDNOW Serial# BCCEAD1C
[2022-06-28 16:26] LABS: Glucose, Whole Blood 139 mg/dL (60-115)
[2022-06-29] VITALS: RESP 19
[2022-06-29 03:40] VITALS: RESP 18
[2022-06-29 06:31] LABS: Hematocrit 30.5 % (42.0-52.0); Hemoglobin 9.8 g/dl (14.0-18.0); Mean Corpuscular HGB Conc 32.1 g/dl (31.0-36.0); Mean Corpuscular Hemoglobin 29.6 pg (27.0-33.0); Mean Corpuscular Volume 92.1 fL (80.0-98.0); Mean Platelet Volume 12.5 fL (9.4-12.4); Platelet Count 64 X10*3/uL (160-400); Red Blood Count 3.31 X10*6/uL (4.60-5.80); Red Cell Distribution Width 15.7 % (11.0-16.0); White Blood Count 7.1 X10*3/uL (4.8-10.8)
--- NOTE | 2022-06-29 06:32 | PC.NURSE ---
Assumed care at 2300. Pt remains at his normal baseline. TPN and lipids infusing.
[2022-06-29 06:48] LABS: Alanine Aminotransferase 12 U/L (0-40); Albumin Level 3.3 g/dL (3.5-5.0); Alkaline Phosphatase 71 U/L (39-117); Anion Gap 12 (12-20); Aspartate Amino Transferase 21 U/L (5-37); Bilirubin Total 1.9 mg/dL (0.0-1.0); Blood Urea Nitrogen 14 mg/dL (9-16); Carbon Dioxide 32 mmol/L (22-29); Chloride 102 mmol/L (96-108); Creatinine Clr Calc Pharmacy 111.3; Estimated Glomerular Filt Rate > 60; Glucose Random 209 mg/dL (60-115); Magnesium 1.8 mg/dL (1.6-2.6); Phosphorus 3.9 mg/dL (2.7-4.5); Potassium 4.5 mmol/L (3.3-5.1); Sodium 141 mmol/L (135-145); Total Protein 6.5 g/dL (6.5-8.0)
[2022-06-29 07:20] VITALS: BP 123/61; PULSE 65; RESP 20; TEMP 36.6; O2SAT 100
[2022-06-29 07:29] LABS: Glucose, Whole Blood 210 mg/dL (60-115)
[2022-06-29] MEDS: Doxycycline Monohydrate 100 MG CAPSULE PO (09:30)
[2022-06-29] MEDS: 0.9 % Sodium Chloride Flush 3 ML SYRINGE IVFLUSH ×2 (09:30→15:11)
[2022-06-29] MEDS: predniSONE 20 MG TABLET 40 MG PO (09:30)
[2022-06-29] MEDS: Erythromycin Base 0.5% Oph Oin 1 GM TUBE 1 CM EYE-LEFT (09:30)
[2022-06-29] MEDS: Sucralfate 1 GM TABLET PO (09:30)
[2022-06-29] MEDS: Lidocaine 4 % Patch ADH..PATCH 1 PATCH TRANSDERMA (09:30)
--- NOTE | 2022-06-29 09:30 | MHC.CLN ---
F/U DISCUSSED WITH PHARMACY REVIEWED LABS PT TO CONTINUE WITH TPN [id number] AT 75ML/HR WITH 30ML OF 20% LIPIDS TO PROVIDE 1998 TOTAL KCALS (28KCALS/KG), 90G PROTEIN (1.2G/KG) REPLETE LYTES NEEDED WT UP 11# SINCE ADMISSION-PT IS 95% IBW INDICATES ADEQUATE WT FOR HT DIET RX: PUREED-APPROPRIATE PO INTAKE VARIABLE PT RECEIVING ENSURE TID TO PROVIDE 1050KCALS, 60G PROTEIN WITH 100% ACCEPTANCE CONTINUE STRICT PO INTAKE MONITORING
[2022-06-29 11:31] VITALS: BP 121/60; PULSE 67; RESP 20; TEMP 36.5; O2SAT 100
[2022-06-29 11:36] LABS: Glucose, Whole Blood 226 mg/dL (60-115)
--- NOTE | 2022-06-29 13:26 | MHC.CM.PN ---
Per ROLANDO/Shyann, Patient is medically cleared for dc to SNF/LTC today. Patient will return to LTC @ [facility] [place] today at 6PM, via [facility](TPN will not be running during transport/per ROLANDO). CM met with Patient at bedside and addressed IMM with him, providing him with the original and placing a copy on the chart. CM also left a message for Patient's HCP/Jone @ [phone], informing him of the dc plan.
--- NOTE | 2022-06-29 13:53 | PM.DS ---
DS: Providers Provider Date of Service: 06/29/22 Date of admission: 06/15/22 16:59 Date of discharge: 06/29/22 Primary care physician: NAVNEET CAPUTO Consults: 06/15/22 17:21 Consult to Infectious Diseases Routine Consulting Provider: [facility] Infectious Disease Reason for consultation: sepsis ?recurrent uti Has provider been notified: No 06/18/22 09:31 Consult to Gastroenterology Routine Consulting Provider: Bina Zuniga Reason for consultation: anemia, low HH Has provider been notified: No 06/18/22 09:34 Consult to Hematology / Oncology Routine Consulting Provider: Mamta Su Reason for consultation: anemia 06/19/22 07:37 Consult to Infectious Diseases Routine Consulting Provider: [facility] Infectious Disease Reason for consultation: staph epi 06/23/22 17:56 Consult to Orthopedics Routine Consulting Provider: [facility] Orthopedic Surgeons Reason for consultation: right elbow pain, swelling Has provider been notified: No 06/26/22 07:54 Consult to Gastroenterology Routine Consulting Provider: Bina Zuniga Reason for consultation: Esophageal mass Has provider been notified: No Attending physician on discharge: Isaias Bucio Discharging clinician: Shyann Pal DS: Diagnosis Discharge Diagnosis (1) Gout of right elbow: Status: Acute (2) Bacteremia: Status: Acute (3) Esophageal mass: Status: Acute DS: Summary Hospital Course Hospital Course: From H&P on day of admission ?this is a 67-year-old male with recently diagnosed obstructing GE junction mass who was recently discharged from the hospital on TPN. ? He was sent to the emergency department due to low blood pressure.? On arrival to the emergency department he was noted to have fever of 102.7 and was tachycardic as well as hypotensive with a blood pressure of 90/45.? He was given IV fluid and ceftriaxone.? Straight catheterization was ? Attempted did but unable to be obtained as patient was unable to tolerate.? Chest x-ray unremarkable.? He was treated for UTI on last admission and therefore presumed source of infection is recurrent UTI. CXR is unremarkable and? He denies any cough or shortness of breath.? He also denies any abdominal pain vomiting or diarrhea.? blood pressure dropped into the 80s, despite this he was awake, alert and able to provide an accurate medical history. He has been unable to tolerate any po medication and has been not taking any po meds. 67-year-old male with history of diabetes,? recently diagnosed with obstructing GE junction mass with plans for outpatient follow-up and surgical intervention at [facility] who returns with decreased p.o. intake, low blood pressure found to have fever and probable recurrent UTI GE junction mass had outpatient appt at [facility] on 06/26 for surgical evaluation - this was cancelled by office , called [facility] for transfer - no beds available. will need appointment rescheduled when able. continue pureed diet as tolerated and ensure. Picc line placed 06/27, being discharged on TPN. recommend weekly BMP and electrolytes starting on sunday. replace lytes/adjust TPN as needed based on outcome of labs Staph EPI Bacteremia and Staph aureus UTI. Resolved BCx 05/26 2/2 + for staph epidermidis, repeat cultures from 06/20 - 02/20 growing coag neg staph - likely contaminate. BCx from 06/22 negative to date Doxycycline for total 7 days - needs two more days seen by ID picc line removed and re-inserted after neg blood cx acute gout of right elbow. seen by ortho. treated with 5 days po prednisone. elbow swelling resolved. can continue home colchicine Acute on chronic normocytic/iron def anemia s/p H/H trended down to 6.6/19.9 no gross bleeding observed, patient declining stool occult s/p 2 units PRBC with rise in HH iron infusion x2>iron 18/TIBC 127/%14 Seen by hematology> plan for EUS at [facility], apt for 06/26/22 cancelled, awaiting new apt date Hypomagnesemia/hypokalemia/hypophosphatemia likely r/t to decreased po intake replaced as needed Severe sepsis secondary to UTI met SIRS criteria with fever, tachycardia lactic acid 2.8, improved with IVF. BP was low on admission r/t dehydration from decreased PO intake in setting of GE junction mass. initially received 3L bolus, total greater then 30cc/kg bolus with improvement in BP s/p IV ceftriaxone, started 06/15, seen by ID - recommended doxycycline total 7 days. has declined multiple doses. needs two more days. ? acute on chronic thrombocytopenia has h/o ITP. stable DM decreased PO intake SSI, adjusted to start at 200. levimir has been on hold, can resume if poc remains above 200 consistently paraoxysmal AF carvedilol has been on hold, bp and HR stable. not on AC due to thrombocytopenia Time Spent with Patient Time attestation: Total time managing care of this patient today ____ minutes. Discharge coordination time: Greater than 30 minutes Quality: Safe Use of Opioids Does Pt have an Active Cancer Diagnosis on the Problem List?: No Quality: Stroke Does the patient have a stroke diagnosis?: No Physical Exam Vital Signs: Vital Signs: Last Vital Signs Temp 97.7 F 06/29/22 11:31 Pulse 67 06/29/22 11:31 Resp 20 06/29/22 11:31 BP 121/60 06/29/22 11:31 Pulse Ox 100 06/29/22 11:31 O2 Del Method Room Air 06/29/22 11:31 BMI result Body Mass Index 23.0 Const: General: cooperative, comfortable, alert and awake Nutritional Appearance: thin Orientation/consciousness: patient oriented x3 HEENT: Other: dry mucous membranes Eyes: Other: left eye blind Resp: Effort & Inspection: normal respiratory effort and able to speak in complete sentences Auscultation: clear to auscultation bilaterally Cardio: Rate: regular rate GI: Inspection: No distended Palpation (GI): Soft to palpation and nontender Neuro: General: patient oriented x3 and CN's II-XI intact bilaterally Extrem: Other: right elbow swelling resolved DS: Data Data Completed and Pending Completed studies during hospitalization [Text1]: Procedures Excision of Duodenum, Via Natural or Artificial Opening Endoscopic, Diagnostic (05/17/22) Excision of Esophagogastric Junction, Via Natural or Artificial Opening Endoscopic, Diagnostic (05/17/22) Excision of Stomach, Pylorus, Via Natural or Artificial Opening Endoscopic, Diagnostic (05/17/22) Insertion of Infusion Device into Superior Vena Cava, Percutaneous Approach (05/17/22) Introduction of Mineral-based Topical Hemostatic Agent into Upper GI, Via Natural or Artificial Opening Endoscopic, [employer] 6 (05/17/22) Resection of Gallbladder, Percutaneous Endoscopic Approach (02/01/22) Transfusion of Nonautologous Frozen Plasma into Peripheral Vein, Percutaneous Approach (02/01/22) Transfusion of Nonautologous Platelets into Peripheral Vein, Percutaneous Approach (02/01/22) Transfusion of Nonautologous Red Blood Cells into Peripheral Vein, Percutaneous Approach (02/20/20) Ultrasonography of Superior Vena Cava, Guidance (05/17/22) Labs on day of discharge: Laboratory Results - last 24 hr 06/28/22 06/28/22 06/29/22 15:44 16:22 06:21 WBC 7.1 RBC 3.31 L Hgb 9.8 L Hct 30.5 L MCV 92.1 MCH 29.6 MCHC 32.1 RDW 15.7 Plt Count 64 L D MPV 12.5 H Absolute Nucleated RBC 0.000 Nucleated RBC % (auto) 0.0 Sodium Potassium Chloride Carbon Dioxide Anion Gap BUN Creatinine Estim Creat Clear Calc Estimated GFR POC Glucose 139 H Random Glucose Calcium Phosphorus Magnesium Total Bilirubin AST ALT Alkaline Phosphatase Total Protein Albumin COVID-19 ([facility]) Negative COVID-19 Clin Com See Note 06/29/22 06/29/22 06/29/22 06:21 07:21 11:30 WBC RBC Hgb Hct MCV MCH MCHC RDW Plt Count MPV Absolute Nucleated RBC Nucleated RBC % (auto) Sodium 141 Potassium 4.5 Chloride 102 Carbon Dioxide 32 H Anion Gap 12 BUN 14 Creatinine 0.68 Estim Creat Clear Calc 111.3 Estimated GFR > 60 POC Glucose 210 H 226 H Random Glucose 209 H Calcium 8.0 L D Phosphorus 3.9 Magnesium 1.8 Total Bilirubin 1.9 H AST 21 ALT 12 Alkaline Phosphatase 71 Total Protein 6.5 Albumin 3.3 L COVID-19 ([facility]) COVID-19 Clin Com Discharge Plan Discharge Patient Disposition: Xfer [facility] Discharge Diagnosis: Electrolyte abnormalities Hypotension Esophageal mass gout Referrals: [facility] [Outside] - 1 Week NAVNEET CAPUTO [Primary Care Provider] - 1 Week Discharge Medications: New doxycycline monohydrate 100 mg Capsule 100 mg PO Q12H 2 Days Qty: 4 0RF Continued latanoprost 0.005 % drops 1 drp ophthalmic-Right DAILY@1700 citalopram 10 mg tablet 1 tab PO DAILY Rx Instructions: TDD = 30 MG citalopram 20 mg tablet 1 tab PO DAILY Rx Instructions: TDD = 30 MG hydroxyzine HCl 25 mg tablet 25 mg PO DAILY omeprazole 40 mg Capsule,Delayed Release(Dr/Ec) 40 mg PO BID@0630,1630 Qty: 60 0RF insulin aspart U-100 [Novolog U-100 Insulin aspart] 100 unit/mL solution See Protocol subcut QIDACHS Protocol: Insulin Correction Scale Less than or equal to 110 ---- Give (units): 0 111 to 150 Give (units): 0 151 to 200 Give (units): 2 201 to 250 Give (units): 4 251 to 300 Give (units): 6 301 to 350 Give (units): 8 Greater than 350 Give (units): 10 Call MD if Blood Glucose > : 350 erythromycin 5 mg/gram (0.5 %) ointment 1 appl ophthalmic-Left MOTH@0900 calcium carbonate [Calcium Antacid] 200 mg calcium (500 mg) Tablet,Chewable 200 mg PO TID@0800,1200,1700 cholecalciferol (vitamin D3) 1,250 mcg (50,000 unit) Capsule 1,250 mcg PO QMONTH Rx Instructions: TAKES ON THE 16TH OF EACH MONTH melatonin 5 mg Tablet 5 mg PO DAILY@1700 sucralfate 1 gram tablet 1 g PO QID albuterol sulfate 90 mcg/actuation Hfa Aerosol Inhaler 1 puff INHALATION Q6H PRN (Reason: Wheezing) glucagon 1 mg recon soln 1 mg subcut Q20M PRN (Reason: Hypoglycemia) Rx Instructions: until target blood sugar attained fluticasone propionate 50 mcg/actuation spray,suspension 2 spray intranasal DAILY colchicine 0.6 mg tablet 0.3 mg PO Q OTHER DAY Qty: 15 0RF Held Levemir U-100 Insulin 100 unit/mL solution 10 unit subcut DAILY Hold Instructions: has not been receiving during hospitalization due to decreased PO intake, has been covered with sliding scale of insulin. can consider resuming if POCs consistently above 200 Discontinued carvedilol 12.5 mg tablet 1 tab PO BID@0800,1700 Clinimix 4.25%/D10W Sulf Free 4.25 % Parenteral Solution 75 ea IV DAILY@0400,1600 Rx Instructions: 75 Ml/hr Discharge Orders: Discharge Order (Routine); Ordered 06/29/22 Ordered By: Shyann Pal Diet: PPN Activity on Discharge: As tolerated Stand Alone Forms: Patient Portal Discharge page Other Ambulatory Orders: Basic Metabolic Panel (DAILY@0600) Timeframe: [id number] Facility: [facility] - Location: Laboratory Ordered By: Yaquelin Martinez Basic Metabolic Panel (DAILY@0600) Timeframe: [id number] Facility: [facility] - Location: Laboratory Ordered By: Yaquelin Martinez Basic Metabolic Panel (DAILY@0600) Timeframe: [id number] Facility: [facility] - Location: Laboratory Ordered By: Yaquelin Martinez Basic Metabolic Panel (DAILY@0600) Timeframe: [id number] Facility: [facility] - Location: Laboratory Ordered By: Yaquelin Martinez Care Plan Goals: Follow up for EUS at [facility] when rescheduled Health Concerns: GE junction mass Plan of Treatment: Continue TPN as ordered- recommend weekly BMP and calcium, phosphorus, magnesium starting Monday 07/03 reschedule appointment at [facility] for EUS - urgently continue pureed diet as tolerated, continue ensure as tolerated has not been declining taking oral medications regularly, coreg has been held, HR has been controlled has been intermittently declining oral doxycycline - has two more days left 100 bid long acting insulin has been placed on hold during admission due to low po intake, has been covered with sliding scale, if POC consistently above 200, can consider resuming levimir Assessment: See discharge summary
[2022-06-29] MEDS: 0.9 % Sodium Chloride Flush 10 ML SYRINGE 5 ML IVFLUSH (15:11)
[2022-06-29 16:00] VITALS: BP 140/63; PULSE 65; RESP 20; TEMP 36.8; O2SAT 100
[2022-06-29 17:00] LABS: Glucose, Whole Blood 219 mg/dL (60-115)
== END 2022-06-29 18:25 | DRG 872 ==
LOC: HO.ED 15:52 → HO.EDOVER 17:12 → HO.IMC 06-16 07:36
PROVIDERS: Family Medicine; Nurse Practitioner Acute Care; Radiology Diagnostic Radiology; Admitting Provider Physician Assistant Medical; Emergency Provider Student in an Organized Health Care Education/Training Program; PCP Emergency Medicine; Visit Provider Physician Assistant Medical
PROC: 02HV33Z Insertion of Infusion Device into Superior Vena Cava, Percutaneous Approach (ICD-10-PCS; principal; 2022-06-27 09:00)
DX: A41.9 Sepsis, unspecified organism (principal); N39.0 Urinary tract infection, site not specified; E44.0 Moderate protein-calorie malnutrition; C16.0 Malignant neoplasm of cardia; D69.3 Immune thrombocytopenic purpura; Z66 Do not resuscitate; R65.20 Severe sepsis without septic shock; N40.0 Benign prostatic hyperplasia without lower urinary tract symptoms; J44.9 Chronic obstructive pulmonary disease, unspecified; E03.9 Hypothyroidism, unspecified; K21.9 Gastro-esophageal reflux disease without esophagitis; E86.0 Dehydration; E11.9 Type 2 diabetes mellitus without complications; I10 Essential (primary) hypertension; E83.42 Hypomagnesemia; E87.6 Hypokalemia; D63.0 Anemia in neoplastic disease; D50.9 Iron deficiency anemia, unspecified; M54.2 Cervicalgia; I95.9 Hypotension, unspecified; M10.9 Gout, unspecified; B95.61 Methicillin susceptible Staphylococcus aureus infection as the cause of diseases classified elsewhere; Z68.21 Body mass index [BMI] 21.0-21.9, adult; Z20.822 Contact with and (suspected) exposure to COVID-19; Z87.891 Personal history of nicotine dependence; Z79.4 Long term (current) use of insulin; Z79.51 Long term (current) use of inhaled steroids; Z79.899 Other long term (current) drug therapy
CPT/HCPCS: 36415; 36573; 71045; 73080; 80048; 80053; 80076; 80202; 81001; 81003; 82040; 82947; 83540; 83605; 83690; 83735; 84100; 84478; 84484; 84550; 85014; 85018; 85025; 85027; 86850; 86900; 86901; 86923; 87040; 87077; 87086; 87088; 87147; 87186; 87205; 87635; 93005; 93971; 99285; C1751; J0612; J0613; J0696; J1756; J1885; J2997; J3370; J3475; P9016; P9047

== ENCOUNTER 2022-06-22 10:17 | Outpatient (REF) | payer MEDICARE, MEDICAID, SELFPAY | END 2022-06-22 10:18 | disposition home or self-care (01) | LOC: HO.HAP 10:17 | PROVIDERS: Visit Provider Emergency Medicine | DX: Z46.1 Encounter for fitting and adjustment of hearing aid (principal); H90.3 Sensorineural hearing loss, bilateral; H69.93 Unspecified Eustachian tube disorder, bilateral | CPT/HCPCS: V5266 ==

== ENCOUNTER 2022-07-14 00:01 | Emergency (ER) | payer MEDICARE, MEDICAID, SELFPAY ==
[2022-07-14] VITALS (8 sets, daily range): BP systolic 109–144; BP diastolic 48–82; PULSE 77–100; RESP 12–18; TEMP 36.6–36.8; O2SAT 95–100; BMI 20.1
--- NOTE | 2022-07-14 00:18 | ECG_ITS ---
Test Reason : HYPOKALEMIA Blood Pressure : / mmHG Vent. Rate : 090 BPM Atrial Rate : 090 BPM P-R Int : 238 ms QRS Dur : 112 ms QT Int : 386 ms P-R-T Axes : -18 055 071 degrees QTc Int : 472 ms Sinus rhythm with 1st degree A-V block Low voltage QRS Non-specific intra-ventricular conduction block Nonspecific ST and T wave abnormality Abnormal ECG When compared with ECG of 15-JUN-2022 13:40, Sinus rhythm has replaced Wide QRS rhythm Referred By: Abril Christensen Electronically Signed By:BANG CA
--- NOTE | 2022-07-14 00:19 | ED_ITS ---
HPI - General Adult General Chief complaint: General Medical Stated complaint: patient pulled out IV Time Seen by Provider: 07/14/22 00:14 Source: patient and EMS Mode of arrival: EMS Limitations: no limitations History of Present Illness HPI narrative: Patient comes to the emergency room via ambulance because he accidentally pulled out his IV. Patient coming from senior living. Patient is scheduled for Scanlon catheter insertion at 10:00 on July 14. Otherwise, patient has no complaints. According to the senior living, the patient's potassium is 2.8. Patient is NPO for his procedure. Related Data Home Medications Medication Instructions Recorded Confirmed citalopram 10 mg tablet 1 tab PO DAILY 02/21/20 06/15/22 citalopram 20 mg tablet 1 tab PO DAILY 02/21/20 06/15/22 hydroxyzine HCl 25 mg tablet 25 mg PO DAILY 02/21/20 06/15/22 latanoprost 0.005 % eye drops 1 drp ophthalmic-Right DAILY@1700 02/21/20 06/15/22 calcium carbonate 200 mg calcium 200 mg PO TID@0800,1200,1700 12/07/21 06/15/22 (500 mg) chewable tablet (Calcium Antacid) cholecalciferol (vitamin D3) 1,250 1,250 mcg PO QMONTH 12/07/21 06/15/22 mcg (50,000 unit) capsule erythromycin 5 mg/gram (0.5 %) eye 1 appl ophthalmic-Left MOTH@0900 12/07/21 06/15/22 ointment insulin aspart U-100 100 unit/mL See Protocol subcut QIDACHS 12/07/21 06/15/22 subcutaneous solution (Novolog U-100 Insulin aspart) insulin detemir U-100 100 unit/mL 10 unit subcut DAILY 12/07/21 06/15/22 subcutaneous solution (Levemir U-100 Insulin) melatonin 5 mg tablet 5 mg PO DAILY@1700 12/07/21 06/15/22 sucralfate 1 gram tablet 1 g PO QID 12/20/21 06/15/22 glucagon 1 mg solution for 1 mg subcut Q20M PRN Hypoglycemia 03/28/22 06/15/22 injection fluticasone propionate 50 2 spray intranasal DAILY 04/24/22 06/15/22 mcg/actuation nasal spray,suspension albuterol sulfate 90 mcg/actuation 1 puff inhalation Q6H PRN Wheezing 06/15/22 06/15/22 aerosol inhaler Previous Rx's Medication Instructions Recorded omeprazole 40 mg capsule,delayed 40 mg PO BID@0630,1630 #60 caps 02/25/20 release colchicine 0.6 mg tablet 0.3 mg PO Q OTHER DAY #15 tabs 03/31/22 doxycycline monohydrate 100 mg 100 mg PO Q12H 2 days #4 caps 06/29/22 capsule Allergies Allergy/AdvReac Type Severity Reaction Status Date / Time colchicine Allergy Unknown diarrhea Verified 05/17/22 13:56 Review of Systems Review of Systems: Constitutional : No Weight loss, No Fever, No Chills, No Night Sweats, No Fatigue, No Malaise ENT/Mouth : No Hearing loss, No Ear Pain, No Nasal Congestion, No Sinus Pain, No Hoarseness, No sore throat, No Rhinorrhea, No Swallowing Difficulty Eyes: No Eye Pain, No Swelling, No Redness, No Foreign Body, No Discharge, No Vision Changes Cardiovascular : No Chest Pain, No SOB, No Dyspnea on Exertion, No Orthopnea, No Edema, No Palpitations Respiratory : No Cough, No Sputum, No Wheezing, No Smoke Exposure, No Dyspnea Gastrointestinal : No Nausea, No Vomiting, No Diarrhea, No Constipation, No abdominal Pain, No Hematochezia, No Melena Genitourinary : no irregular bleeding, No Dysuria, No Urinary Frequency, No Hematuria, No Urinary Incontinence, No Urgency, No Flank Pain, No Urinary Flow Changes, No Hesitancy Musculoskeletal : No joint pain, No Myalgias, No Joint Swelling Skin : No Skin Lesions, No rash Neuro : No Weakness, No Numbness, No Paresthesias, No Loss of Consciousness, No Dizziness, No Headache Psych : No Anxiety/Panic, No Depression, No SI/HI/AH/VH, No Social Issues, Heme/Lymph: No Bruising, No Bleeding,No Lymphadenopathy Endocrine : No Polyuria, No Polydipsia, No Temperature Intolerance [facility] Past Medical History Medical History Atrial fibrillation Blindness of left eye BPH (benign prostatic hyperplasia) CHF (congestive heart failure) Cirrhosis COPD (chronic obstructive pulmonary disease) Diabetes Diverticulosis Gallbladder sludge GERD (gastroesophageal reflux disease) History of COVID-19 Hypothyroid Major depression Osteoarthritis Resides in [facility] facility 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 Strain of left knee Thrombocytopenia Surgical History History of esophagogastroduodenoscopy (EGD) Hx of colonoscopy Hx of eye surgery Family History Family History Maternal Grandmother Diabetes Mother Diabetes Social History Social History Household Members: None and Other Household Members Other:: senior living Housing: [facility] Housing Other:: [facility] Do you presently have visiting nurse or other home services: No Alcohol intake: never Patient Tobacco Use Status: Former Tobacco user Quit Date: 10 yrs ago Tobacco use type: Cigarette Years Smoked: quit 10 years ago Advance Directives: Yes Advance Directives on File: Yes Advance Directives Date on File: 12/08/21 service: No Current occupational status: retired Physical Exam ED Vital Signs: Vital Signs - 24 hr 07/14/22 00:08 07/14/22 00:39 07/14/22 01:14 Temperature 98.3 F Pulse Rate 89 92 91 Respiratory Rate 16 12 18 Blood Pressure 118/64 120/72 133/64 Pulse Oximetry 98 99 96 Oxygen Delivery Method Room Air Room Air BMI result Body Mass Index 20.1 Const Other: Appearance: Alert. Oriented X3. No acute distress. Eyes: Pupil on the right side, round and reactive to light. ENT: Pharynx normal. Neck: Normal inspection. Neck supple. No lymph nodes noted. No crepitus CVS: Normal heart rate and rhythm. Pulses normal. Normal S1 and S2 Respiratory: No respiratory distress. Breath sounds normal. No Wheezing. No rales Abdomen: Soft and nontender. No rigidity. No distention. Skin: Skin warm and dry. Normal skin color. Normal skin turgor. Extremities: No lower extremity edema. No Lacerations. No Rash Neuro: Oriented X 3. No motor deficit. No sensory deficit. Moving all extremities. No slurred speech. CN 2 through 12 grossly intact Psych: calm, cooperative, normal affect Medical Decision Making Medical Decision Making MDM Narrative: -we will insert an IV, -labs pending, EKG pending. If potassium is low, we will replete IV potassium IV. Patient is NPO for his procedure -we will keep the patient overnight since his procedure is due in a few hours -IV was reinserted -labs were repeated, potassium is normal. It is possible that at the senior living they donovan labs from his IV line that was mixed with IV fluids. -patient remains asymptomatic, refer discharge. Patient will likely stay until the morning Lab Data 07/14/22 00:45 07/14/22 00:45 Labs: Lab Results 07/14/22 07/14/22 Range/Units 00:45 00:45 WBC 7.7 (4.8-10.8) X10*3/uL RBC 3.33 L (4.60-5.80) X10*6/uL Hgb 9.6 L (14.0-18.0) g/dl Hct 29.0 L (42.0-52.0) % MCV 87.1 (80.0-98.0) fL MCH 28.8 (27.0-33.0) pg MCHC 33.1 (31.0-36.0) g/dl RDW 15.1 (11.0-16.0) % Plt Count 67 L (160-400) X10*3/uL MPV 13.9 H (9.4-12.4) fL Immature Gran % (Auto) 1.9 H (0.0-0.4) % Neut % (Auto) 75.9 H (45-73) % Lymph % (Auto) 10.8 L (20-40) % Motley % (Auto) 7.4 (2-11) % Eos % (Auto) 3.6 (0-4) % Baso % (Auto) 0.4 (0-2) % Lymph # (Auto) 0.8 L (1.2-4.9) X10*3/uL Motley # (Auto) 0.6 (0.1-1.2) X10*3/uL Eos # (Auto) 0.3 (0.0-0.4) X10*3/uL Baso # (Auto) 0.0 (0.0-0.2) X10*3/uL Abs Immat Gran (auto) 0.15 H (0.00-0.03) X10*3/uL Absolute Neuts (auto) 5.9 (2.0-8.3) x10*3/uL Absolute Nucleated RBC 0.000 (0.0-0.012) X10*3/uL Nucleated RBC % (auto) 0.0 (0.0-0.2) /100WBC Smear Tech's Comments VERIFIED Sodium 141 (135-145) mmol/L Potassium 3.3 D (3.3-5.1) mmol/L Chloride 109 H (96-108) mmol/L Carbon Dioxide 20 L (22-29) mmol/L Anion Gap 15 (12-20) BUN 13 (9-16) mg/dL Creatinine 0.67 (0.5-1.4) mg/dL Estim Creat Clear Calc 98.9 Estimated GFR > 60 Random Glucose 120 H (60-115) mg/dL Calcium 7.9 L (8.4-10.2) mg/dL Discharge Plan Discharge Clinical Impression: Intravenous catheter in place Patient Disposition: Home, Self-Care Additional Instructions: Please follow-up with your primary care physician tomorrow. If you have any worsening or new symptoms, please return to the emergency room or call 911 Prescriptions: No Action latanoprost 0.005 % drops 1 drp ophthalmic-Right DAILY@1700 citalopram 10 mg tablet 1 tab PO DAILY Rx Instructions: TDD = 30 MG citalopram 20 mg tablet 1 tab PO DAILY Rx Instructions: TDD = 30 MG hydroxyzine HCl 25 mg tablet 25 mg PO DAILY omeprazole 40 mg Capsule,Delayed Release(Dr/Ec) 40 mg PO BID@0630,1630 Qty: 60 0RF insulin aspart U-100 [Novolog U-100 Insulin aspart] 100 unit/mL solution See Protocol subcut QIDACHS Protocol: Insulin Correction Scale Less than or equal to 110 ---- Give (units): 0 111 to 150 Give (units): 0 151 to 200 Give (units): 2 201 to 250 Give (units): 4 251 to 300 Give (units): 6 301 to 350 Give (units): 8 Greater than 350 Give (units): 10 Call MD if Blood Glucose > : 350 erythromycin 5 mg/gram (0.5 %) ointment 1 appl ophthalmic-Left MOTH@0900 calcium carbonate [Calcium Antacid] 200 mg calcium (500 mg) Tablet,Chewable 200 mg PO TID@0800,1200,1700 cholecalciferol (vitamin D3) 1,250 mcg (50,000 unit) Capsule 1,250 mcg PO QMONTH Rx Instructions: TAKES ON THE 16TH OF EACH MONTH melatonin 5 mg Tablet 5 mg PO DAILY@1700 Levemir U-100 Insulin 100 unit/mL solution 10 unit subcut DAILY Hold Instructions: has not been receiving during hospitalization due to decreased PO intake, has been covered with sliding scale of insulin. can consider resuming if POCs consistently above 200 sucralfate 1 gram tablet 1 g PO QID albuterol sulfate 90 mcg/actuation Hfa Aerosol Inhaler 1 puff INHALATION Q6H PRN (Reason: Wheezing) doxycycline monohydrate 100 mg Capsule 100 mg PO Q12H 2 Days Qty: 4 0RF glucagon 1 mg recon soln 1 mg subcut Q20M PRN (Reason: Hypoglycemia) Rx Instructions: until target blood sugar attained fluticasone propionate 50 mcg/actuation spray,suspension 2 spray intranasal DAILY colchicine 0.6 mg tablet 0.3 mg PO Q OTHER DAY Qty: 15 0RF
[2022-07-14 00:50] LABS: Red Blood Count 3.33 X10*6/uL (4.60-5.80); SCAN SMEAR FLAG 1
[2022-07-14 00:52] LABS: Basophils Percent Auto 0.4 % (0-2); Eosinophils Absolute Auto 0.3 X10*3/uL (0.0-0.4); Eosinophils Percent Auto 3.6 % (0-4); Hemoglobin 9.6 g/dl (14.0-18.0); Imm Gran Abs Auto 0.15 X10*3/uL (0.00-0.03); Imm Gran Pct Auto 1.9 % (0.0-0.4); Lymphocytes Absolute Auto 0.8 X10*3/uL (1.2-4.9); Lymphocytes Percent Auto 10.8 % (20-40); MANUAL DIFF FLAG SCAN; Mean Corpuscular HGB Conc 33.1 g/dl (31.0-36.0); Mean Corpuscular Hemoglobin 28.8 pg (27.0-33.0); Mean Corpuscular Volume 87.1 fL (80.0-98.0); Mean Platelet Volume 13.9 fL (9.4-12.4); Monocytes Absolute Auto 0.6 X10*3/uL (0.1-1.2); Monocytes Percent Auto 7.4 % (2-11); Neutrophils Absolute Auto 5.9 x10*3/uL (2.0-8.3); Neutrophils Percent Auto 75.9 % (45-73); Red Cell Distribution Width 15.1 % (11.0-16.0); White Blood Count 7.7 X10*3/uL (4.8-10.8)
[2022-07-14 00:56] LABS: PLT ABN DIST 1; Platelet Count 67 X10*3/uL (160-400)
[2022-07-14 01:09] LABS: Anion Gap 15 (12-20); Blood Urea Nitrogen 13 mg/dL (9-16); Calcium 7.9 mg/dL (8.4-10.2); Carbon Dioxide 20 mmol/L (22-29); Chloride 109 mmol/L (96-108); Creatinine Clr Calc Pharmacy 98.9; Estimated Glomerular Filt Rate > 60; Glucose Random 120 mg/dL (60-115); Potassium 3.3 mmol/L (3.3-5.1); Sodium 141 mmol/L (135-145)
[2022-07-14 01:28] LABS: SLIDE REVIEW VERIFIED
--- NOTE | 2022-07-14 02:04 | PC.NURSE ---
this rn assumed care of pt from ems @ 0008. multiple attempts made by this rn and product managent intern to place iv line. iv placed in L AC 20g. blood work obtained and sent down to lab. ekg obtained. dr birmingham to bedside for assessment. pt placed on playground monitor
--- NOTE | 2022-07-14 02:06 | PC.NURSE ---
pt discharge paperwork placed by dr birmingham as potassium is within normal range. per recovery room rn pt okay to remain in ed until appointment in am for bridges placement. this rn attempted to call [facility] to notify of current disposition, unable to reach. this rn will continue in attempt to reach facility
--- NOTE | 2022-07-14 03:11 | PC.NURSE ---
this rn able to contact nurse at [facility]. per charge nurse pt okay to stay in room 9 until appointment with interventional radiology this am @ 1000. this rn made staff at [facility] aware of this plan. per staff, agreeable to this plan. pt resting comfortably on stretcher at this time
--- NOTE | 2022-07-14 08:09 | PC.NURSE ---
pt w nad, no complaints, alert, contacted IR and pt will go to short stay for 10am, pt has been npo all night and aware he needs to be
== END 2022-07-14 09:36 | disposition home or self-care (01) ==
PROVIDERS: Emergency Provider Emergency Medicine
DX: Z45.2 Encounter for adjustment and management of vascular access device (principal)
CPT/HCPCS: 36415; 80048; 85025; 93005; 99284

== ENCOUNTER 2022-07-14 10:13 | Day surgery (SDC) | payer MEDICARE, MEDICAID, SELFPAY ==
--- NOTE | ~2022-07-14 | IR_ITS ---
PROCEDURE: IR INSERTION OF TUNNEL CATHETER CLINICAL INFORMATION: Long-term TPN requirement. COMPARISON: None available. TECHNIQUE: Procedure and risks and benefits including bleeding, infection and pneumothorax were discussed with the patient and informed consent was obtained. All elements of maximal sterile barrier technique followed including use of cap, mask, sterile gown, sterile gloves, a sterile full body drape and hand hygiene. Also followed skin preparation with 2% chlorhexidine for cutaneous antisepsis, and sterile ultrasound preparation with sterile gel and probe cover when applicable. The right neck and upper chest were prepped and draped in the usual sterile fashion. The skin and soft tissues were anesthetized with 1% lidocaine plain. Using ultrasound guidance and a 5 Vincentian micropuncture system, right internal jugular vein access was obtained. Over an 0.018 wire, a 5 Vincentian dilator was positioned in the SVC. The skin and soft tissues of the right upper anterior chest were anesthetized with 1% lidocaine plain. A small incision was made. A subcutaneous tunnel from the chest to the neck incision was anesthetized with 1% lidocaine plain. Using a tunneler, a 5 Vincentian single-lumen Proline catheter was tunneled from the chest to the neck incision. An 0.025 guidewire was advanced through the 5 Vincentian dilator into the right atrium. Dilator was exchanged for a peel-away sheath. Using bent wire technique, catheter length was estimated and the catheter was cut. The catheter was fed through the peel-away sheath. The catheter had good blood return, flushed easily and was instilled with 5 mL heparin 100 unit per mL solution. Catheter length is 22 cm. Real-time ultrasound guidance was used to document vein patency and for needle entry. A formal ultrasound picture was recorded. FLUOROSCOPY TIME: 1.8 minutes. DAP: 235 cGy-cm2 FLUOROSCOPIC IMAGES: 1 saved fluoroscopic image. FINDINGS: There is a right upper extremity 5 Vincentian Proline catheter with tip projecting over the SVC. IR/IR us guide venous access IMPRESSION: Right upper extremity 5 Vincentian single lumen Proline catheter placement
[2022-07-14 10:36] LABS: INTERNATIONAL NORM RATIO 1.4 (0.9-1.1)
[2022-07-14 10:38] LABS: Partial Thromboplastin Time 30.8 SEC (26.0-36.4)
[2022-07-14 10:41] VITALS: BP 118/62; PULSE 83; RESP 18; TEMP 36.2; O2SAT 96
[2022-07-14 12:19] VITALS: BP 122/60; PULSE 88; RESP 16; TEMP 36.1; O2SAT 100
--- NOTE | 2022-07-14 14:37 | PC.NURSE ---
Spoke with Leanne from facility who sent chair van, our team from discharge acquired chair from personnel and brought to pacu where 2 team members and jaylon lift used to transfer patient to facilities wheelchair and patient brought to transport van and viewed loading in van by personnel.
== END 2022-07-14 13:10 | disposition home or self-care (01) ==
PROVIDERS: Radiology Diagnostic Radiology; Visit Provider Emergency Medicine
DX: E44.0 Moderate protein-calorie malnutrition (principal); Z68.20 Body mass index [BMI] 20.0-20.9, adult; E11.9 Type 2 diabetes mellitus without complications; H33.8 Other retinal detachments; H54.62 Unqualified visual loss, left eye, normal vision right eye; D69.59 Other secondary thrombocytopenia; J44.9 Chronic obstructive pulmonary disease, unspecified; I11.0 Hypertensive heart disease with heart failure; I50.9 Heart failure, unspecified; Z79.4 Long term (current) use of insulin; Z79.51 Long term (current) use of inhaled steroids; Z79.899 Other long term (current) drug therapy; Z88.8 Allergy status to other drugs, medicaments and biological substances; Z98.890 Other specified postprocedural states; Z87.891 Personal history of nicotine dependence; I48.91 Unspecified atrial fibrillation
CPT/HCPCS: 36415; 36558; 76937; 80048; 85025; 85610; 85730; 93005; 99284; C1751; C1769; J0690; J1642; J2250; J3010

== ENCOUNTER 2022-07-18 15:25 | Emergency (ER) | payer MEDICARE, MEDICAID, SELFPAY ==
[2022-07-18 15:31] VITALS: BP 142/62; PULSE 88; O2SAT 99
[2022-07-18 15:35] VITALS: BP 119/45; PULSE 78; RESP 18; TEMP 37.1; O2SAT 100; BMI 22.0
--- NOTE | 2022-07-18 15:41 | ECG_ITS ---
Test Reason : HYPOKALEMIA Blood Pressure : / mmHG Vent. Rate : 078 BPM Atrial Rate : 078 BPM P-R Int : 206 ms QRS Dur : 124 ms QT Int : 408 ms P-R-T Axes : 000 049 029 degrees QTc Int : 465 ms Normal sinus rhythm Non-specific intra-ventricular conduction delay Nonspecific T wave abnormality Abnormal ECG When compared with ECG of 14-JUL-2022 00:22, [place] interval has decreased Nonspecific T wave abnormality has replaced inverted T waves in Anterior leads Referred By: Abril Christensen Electronically Signed By:ELVIN NORTON MD
[2022-07-18 15:54] LABS: MANUAL DIFF FLAG NO
[2022-07-18 15:56] LABS: Basophils Percent Auto 0.4 % (0-2); Eosinophils Absolute Auto 0.2 X10*3/uL (0.0-0.4); Eosinophils Percent Auto 2.6 % (0-4); Hemoglobin 9.2 g/dl (14.0-18.0); Imm Gran Abs Auto 0.15 X10*3/uL (0.00-0.03); Imm Gran Pct Auto 1.8 % (0.0-0.4); Lymphocytes Absolute Auto 0.6 X10*3/uL (1.2-4.9); Lymphocytes Percent Auto 7.4 % (20-40); Mean Corpuscular HGB Conc 32.9 g/dl (31.0-36.0); Mean Corpuscular Hemoglobin 28.9 pg (27.0-33.0); Mean Corpuscular Volume 88.1 fL (80.0-98.0); Mean Platelet Volume 12.1 fL (9.4-12.4); Monocytes Absolute Auto 0.7 X10*3/uL (0.1-1.2); Monocytes Percent Auto 8.3 % (2-11); Neutrophils Absolute Auto 6.7 x10*3/uL (2.0-8.3); Neutrophils Percent Auto 79.5 % (45-73); Red Blood Count 3.18 X10*6/uL (4.60-5.80); Red Cell Distribution Width 15.6 % (11.0-16.0); White Blood Count 8.4 X10*3/uL (4.8-10.8)
[2022-07-18 15:57] LABS: Platelet Count 61 X10*3/uL (160-400)
[2022-07-18 16:33] LABS: Alanine Aminotransferase 13 U/L (0-40); Alkaline Phosphatase 92 U/L (39-117); Anion Gap 13 (12-20); Aspartate Amino Transferase 23 U/L (5-37); Bilirubin Direct 0.9 mg/dL (0.0-0.5); Bilirubin Total 1.9 mg/dL (0.0-1.0); Blood Urea Nitrogen 17 mg/dL (9-16); Calcium 8.3 mg/dL (8.4-10.2); Carbon Dioxide 25 mmol/L (22-29); Chloride 105 mmol/L (96-108); Estimated Glomerular Filt Rate > 60; Glucose Random 151 mg/dL (60-115); Magnesium 1.3 mg/dL (1.6-2.6); Potassium 2.8 mmol/L (3.3-5.1); Sodium 140 mmol/L (135-145); Total Protein 6.8 g/dL (6.5-8.0)
--- NOTE | 2022-07-18 16:40 | ED.RECABL ---
HPI - Recheck/Abnormal Lab/Rx General Chief Complaint: Recheck/Abnormal Lab/Rx Stated Complaint: HYPOKALEMIA Time Seen by Provider: 07/18/22 15:39 Source: EMS Mode of arrival: EMS Limitations: no limitations History of Present Illness HPI narrative: Patient [facility] the emergency room [facility] a [facility], patients were drawn today, going to the staff, shows potassium was 2.8. Patient has no complaints Related Data Home Medications Medication Instructions Recorded Confirmed citalopram 10 mg tablet 1 tab PO DAILY 02/21/20 06/15/22 citalopram 20 mg tablet 1 tab PO DAILY 02/21/20 06/15/22 hydroxyzine HCl 25 mg tablet 25 mg PO DAILY 02/21/20 06/15/22 latanoprost 0.005 % eye drops 1 drp ophthalmic-Right DAILY@1700 02/21/20 06/15/22 calcium carbonate 200 mg calcium 200 mg PO TID@0800,1200,1700 12/07/21 06/15/22 (500 mg) chewable tablet (Calcium Antacid) cholecalciferol (vitamin D3) 1,250 1,250 mcg PO QMONTH 12/07/21 06/15/22 mcg (50,000 unit) capsule erythromycin 5 mg/gram (0.5 %) eye 1 appl ophthalmic-Left MOTH@0900 12/07/21 06/15/22 ointment insulin aspart U-100 100 unit/mL See Protocol subcut QIDACHS 12/07/21 06/15/22 subcutaneous solution (Novolog U-100 Insulin aspart) insulin detemir U-100 100 unit/mL 10 unit subcut DAILY 12/07/21 06/15/22 subcutaneous solution (Levemir U-100 Insulin) melatonin 5 mg tablet 5 mg PO DAILY@1700 12/07/21 06/15/22 sucralfate 1 gram tablet 1 g PO QID 12/20/21 06/15/22 glucagon 1 mg solution for 1 mg subcut Q20M PRN Hypoglycemia 03/28/22 06/15/22 injection fluticasone propionate 50 2 spray intranasal DAILY 04/24/22 06/15/22 mcg/actuation nasal spray,suspension albuterol sulfate 90 mcg/actuation 1 puff inhalation Q6H PRN Wheezing 06/15/22 06/15/22 aerosol inhaler Previous Rx's Medication Instructions Recorded omeprazole 40 mg capsule,delayed 40 mg PO BID@0630,1630 #60 caps 02/25/20 release colchicine 0.6 mg tablet 0.3 mg PO Q OTHER DAY #15 tabs 03/31/22 doxycycline monohydrate 100 mg 100 mg PO Q12H 2 days #4 caps 06/29/22 capsule Allergies Allergy/AdvReac Type Severity Reaction Status Date / Time colchicine Allergy Unknown diarrhea Verified 05/17/22 13:56 Review of Systems Review of Systems: Constitutional : No Weight loss, No Fever, No Chills, No Night Sweats, No Fatigue, No Malaise ENT/Mouth : No Hearing loss, No Ear Pain, No Nasal Congestion, No Sinus Pain, No Hoarseness, No sore throat, No Rhinorrhea, No Swallowing Difficulty Eyes: No Eye Pain, No Swelling, No Redness, No Foreign Body, No Discharge, No Vision Changes Cardiovascular : No Chest Pain, No SOB, No Dyspnea on Exertion, No Orthopnea, No Edema, No Palpitations Respiratory : No Cough, No Sputum, No Wheezing, No Smoke Exposure, No Dyspnea Gastrointestinal : No Nausea, No Vomiting, No Diarrhea, No Constipation, No abdominal Pain, No Hematochezia, No Melena Genitourinary : no irregular bleeding, No Dysuria, No Urinary Frequency, No Hematuria, No Urinary Incontinence, No Urgency, No Flank Pain, No Urinary Flow Changes, No Hesitancy Musculoskeletal : No joint pain, No Myalgias, No Joint Swelling Skin : No Skin Lesions, No rash Neuro : No Weakness, No Numbness, No Paresthesias, No Loss of Consciousness, No Dizziness, No Headache Psych : No Anxiety/Panic, No Depression, No SI/HI/AH/VH, No Social Issues, Heme/Lymph: No Bruising, No Bleeding,No Lymphadenopathy Endocrine : No Polyuria, No Polydipsia, No Temperature Intolerance [facility] Past Medical History Medical History Atrial fibrillation Blindness of left eye BPH (benign prostatic hyperplasia) CHF (congestive heart failure) Cirrhosis COPD (chronic obstructive pulmonary disease) Diabetes Diverticulosis Gallbladder sludge GERD (gastroesophageal reflux disease) History of COVID-19 Hypothyroid Major depression Osteoarthritis Resides in long term facility 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 Strain of left knee Thrombocytopenia Surgical History History of esophagogastroduodenoscopy (EGD) Hx of colonoscopy Hx of eye surgery Family History Family History Maternal Grandmother Diabetes Mother Diabetes Social History Social History Household Members: None and Other Household Members Other:: penitentiary Housing: Assisted Housing Other:: [facility] Do you presently have visiting nurse or other home services: No Alcohol intake: never Patient Tobacco Use Status: Former Tobacco user Quit Date: 10 yrs ago Tobacco use type: Cigarette Years Smoked: quit 10 years ago Advance Directives: Yes Advance Directives on File: Yes Advance Directives Date on File: 12/08/21 service: No Current occupational status: retired Physical Exam Vital Signs: Vital Signs: Last Vital Signs Temp 98.8 F 07/18/22 15:35 Pulse 81 07/18/22 18:17 Resp 14 07/18/22 18:17 BP 107/59 L 07/18/22 18:17 Pulse Ox 100 07/18/22 18:17 O2 Del Method Room Air 07/18/22 18:17 BMI result Body Mass Index 22.0 Const: Other: Appearance: Alert. Oriented X3. No acute distress. Eyes: Pupils in the right side within normal limits round and reactive to light. Legally blind on the left side. Chronic scar tissue on the left eye. ENT: Pharynx normal. Neck: Normal inspection. Neck supple. No lymph nodes noted. No crepitus CVS: Normal heart rate and rhythm. Pulses normal. Normal S1 and S2 Respiratory: No respiratory distress. Breath sounds normal. No Wheezing. No rales Abdomen: Soft and nontender. No rigidity. No distention. Skin: Skin warm and dry. Normal skin color. Normal skin turgor. Extremities: No lower extremity edema. No Lacerations. No Rash Neuro: Oriented X 3. No motor deficit. No sensory deficit. Moving all extremities. No slurred speech. CN 2 through 12 grossly intact Psych: calm, cooperative, normal affect Medications Administered Discontinued Medications Generic Name Dose Route Start Last Admin Trade Name Freq PRN Reason Stop Dose Admin Magnesium Sulfate 2 gm in 50 mls @ 25 mls/hr 07/18/22 16:44 07/18/22 18:31 Magnesium Sulfate/H2o IV 07/18/22 18:43 Infused ONCE ONE Infusion Potassium Chloride 10 meq in 100 mls @ 100 mls/hr 07/18/22 17:30 07/18/22 20:50 Potassium Chloride/H20 IV 07/18/22 21:29 100 mls/hr Q1H XI Administration Medical Decision Making Medical Decision Making [facility] Narrative: -patient's magnesium was repleted IV -patient unable to take p.o. due to esophageal stricture, patient being given IV piggybacks of potassium to replete it . -a concerted admitting the patient since each piggyback takes 1 hour, patient will need at least 4. I discussed the patient with Dr. Fay, at this time, no need to admission, we will repeat potassium in the ED recheck and then resend to the penitentiary. -potassium to be repeated after the 4th back of potassium -at this time, patient is on his 3rd bag of potassium. Patient needs 1 more back afterwards. Please recheck potassium and Mg levels at 23:30. If corrected, patient may return to his facility. -sign-out given to Dr. Branham Lab Data 07/18/22 15:51 07/18/22 16:02 Labs: Lab Results 07/18/22 07/18/22 Range/Units 15:51 16:02 WBC 8.4 (4.8-10.8) X10*3/uL RBC 3.18 L (4.60-5.80) X10*6/uL Hgb 9.2 L (14.0-18.0) g/dl Hct 28.0 L (42.0-52.0) % MCV 88.1 (80.0-98.0) fL MCH 28.9 (27.0-33.0) pg MCHC 32.9 (31.0-36.0) g/dl RDW 15.6 (11.0-16.0) % Plt Count 61 L (160-400) X10*3/uL MPV 12.1 (9.4-12.4) fL Immature Gran % (Auto) 1.8 H (0.0-0.4) % Neut % (Auto) 79.5 H (45-73) % Lymph % (Auto) 7.4 L (20-40) % [place] % (Auto) 8.3 (2-11) % Eos % (Auto) 2.6 (0-4) % Baso % (Auto) 0.4 (0-2) % Lymph # (Auto) 0.6 L (1.2-4.9) X10*3/uL [place] # (Auto) 0.7 (0.1-1.2) X10*3/uL Eos # (Auto) 0.2 (0.0-0.4) X10*3/uL Baso # (Auto) 0.0 (0.0-0.2) X10*3/uL Abs Immat Gran (auto) 0.15 H (0.00-0.03) X10*3/uL Absolute Neuts (auto) 6.7 (2.0-8.3) x10*3/uL Absolute Nucleated RBC 0.000 (0.0-0.012) X10*3/uL Nucleated RBC % (auto) 0.0 (0.0-0.2) /100WBC Sodium 140 (135-145) mmol/L Potassium 2.8 L (3.3-5.1) mmol/L Chloride 105 (96-108) mmol/L Carbon Dioxide 25 (22-29) mmol/L Anion Gap 13 (12-20) BUN 17 H (9-16) mg/dL Creatinine 0.69 (0.5-1.4) mg/dL Estim Creat Clear Calc 105.0 Estimated GFR > 60 Random Glucose 151 H (60-115) mg/dL Calcium 8.3 L (8.4-10.2) mg/dL Magnesium 1.3 L* (1.6-2.6) mg/dL Total Bilirubin 1.9 H (0.0-1.0) mg/dL Direct Bilirubin 0.9 H (0.0-0.5) mg/dL AST 23 (5-37) U/L ALT 13 (0-40) U/L Alkaline Phosphatase 92 (39-117) U/L Total Protein 6.8 (6.5-8.0) g/dL Albumin 3.0 L (3.5-5.0) g/dL Discharge Plan Discharge Clinical Impression: Acute hypokalemia, Hypomagnesemia Patient Disposition: Home, Self-Care Instructions: Hypokalemia (ED) Additional Instructions: Please follow-up with your primary care physician tomorrow. If you have any worsening or new symptoms, please return to the emergency room or call 911 Prescriptions: No Action latanoprost 0.005 % drops 1 drp ophthalmic-Right DAILY@1700 citalopram 10 mg tablet 1 tab PO DAILY Rx Instructions: TDD = 30 MG citalopram 20 mg tablet 1 tab PO DAILY Rx Instructions: TDD = 30 MG hydroxyzine HCl 25 mg tablet 25 mg PO DAILY omeprazole 40 mg Capsule,Delayed Release(Dr/Ec) 40 mg PO BID@0630,1630 Qty: 60 0RF insulin aspart U-100 [Novolog U-100 Insulin aspart] 100 unit/mL solution See Protocol subcut QIDACHS Protocol: Insulin Correction Scale Less than or equal to 110 ---- Give (units): 0 111 to 150 Give (units): 0 151 to 200 Give (units): 2 201 to 250 Give (units): 4 251 to 300 Give (units): 6 301 to 350 Give (units): 8 Greater than 350 Give (units): 10 Call MD if Blood Glucose > : 350 erythromycin 5 mg/gram (0.5 %) ointment 1 appl ophthalmic-Left MOTH@0900 calcium carbonate [Calcium Antacid] 200 mg calcium (500 mg) Tablet,Chewable 200 mg PO TID@0800,1200,1700 cholecalciferol (vitamin D3) 1,250 mcg (50,000 unit) Capsule 1,250 mcg PO QMONTH Rx Instructions: TAKES ON THE 16TH OF EACH MONTH melatonin 5 mg Tablet 5 mg PO DAILY@1700 Levemir U-100 Insulin 100 unit/mL solution 10 unit subcut DAILY Hold Instructions: has not been receiving during hospitalization due to decreased PO intake, has been covered with sliding scale of insulin. can consider resuming if POCs consistently above 200 sucralfate 1 gram tablet 1 g PO QID albuterol sulfate 90 mcg/actuation Hfa Aerosol Inhaler 1 puff INHALATION Q6H PRN (Reason: Wheezing) doxycycline monohydrate 100 mg Capsule 100 mg PO Q12H 2 Days Qty: 4 0RF glucagon 1 mg recon soln 1 mg subcut Q20M PRN (Reason: Hypoglycemia) Rx Instructions: until target blood sugar attained fluticasone propionate 50 mcg/actuation spray,suspension 2 spray intranasal DAILY colchicine 0.6 mg tablet 0.3 mg PO Q OTHER DAY Qty: 15 0RF
[2022-07-18] MEDS: Magnesium Sulfate/H2O 2 GM/50 ML PIGGYBACK IV (16:52)
[2022-07-18 18:17] VITALS: BP 107/59; PULSE 81; RESP 14; O2SAT 100
[2022-07-18] MEDS: Potassium Chloride/H20 10 MEQ/100 ML PIGGYBACK 100 MEQ IV ×4 (18:30→22:03)
[2022-07-18 21:44] VITALS: BP 109/52; PULSE 76
[2022-07-18 23:51] LABS: Magnesium 1.6 mg/dL (1.6-2.6); Potassium 3.1 mmol/L (3.3-5.1)
[2022-07-19 00:23] VITALS: BP 105/76; PULSE 76; RESP 16; O2SAT 95
[2022-07-19] MEDS: Potassium Chloride/H20 40 MEQ/100 ML PIGGYBACK 100 MEQ IV (01:07)
--- NOTE | 2022-07-19 02:30 | PC.NURSE ---
late entry- this rn and associate professor of medicine changed pt chrief, applied barrier cream to doreen area. pt tolerated well. pt calm and cooperative
--- NOTE | 2022-07-19 03:59 | PC.NURSE ---
late entry- per dr penny start pt on 40meq potassium through bridges. pt tolerated well
--- NOTE | 2022-07-19 04:41 | PC.NURSE ---
per dr penny pt does not need repeat potassium drawn. per dr penny pt okay for discharge
[2022-07-19 04:52] VITALS: BP 114/59; PULSE 76; RESP 18; O2SAT 98
--- NOTE | 2022-07-19 05:02 | MHC.EDTECH ---
call out to [facility] at 0500 for transport back to [facility], eta is approximately [phone]
[2022-07-19 07:09] VITALS: BP 116/56; PULSE 76; RESP 16; TEMP 37.1; O2SAT 100
--- NOTE | 2022-07-19 07:35 | PC.NURSE ---
attempt made to call [facility] and unable top talk w the nurse, I gave report to ems and they will let the RN know that they can call w any questions, pt alert w no complaints
--- NOTE | 2022-07-19 08:31 | PC.NURSE ---
2nd call placed to [facility], the nurse was not available this time, message left w corporation secretary and the nurse will call back w questions, I informed the corporation secretary that the pt's port did not appear to be heparinized by overnight staff
== END 2022-07-19 07:38 | disposition home or self-care (01) ==
PROVIDERS: Emergency Medicine; Emergency Provider Internal Medicine; PCP Emergency Medicine
DX: E87.6 Hypokalemia (principal); E83.42 Hypomagnesemia; Z79.4 Long term (current) use of insulin; Z79.899 Other long term (current) drug therapy; Z87.891 Personal history of nicotine dependence
CPT/HCPCS: 36415; 80048; 80076; 83735; 84132; 85025; 93005; 96365; 96366; 96367; 99284; 99285; J3475